=== PATIENT | female | born 1945 | race Caucasian/White ===

== ENCOUNTER 2019-08-07 20:35 | Emergency (ER) | payer MEDICARE, OTHER, SELFPAY ==
[2019-08-07 20:39] VITALS: BP 151/82; PULSE 82; RESP 20; TEMP 36.9; O2SAT 95; BMI 47.9
--- NOTE | 2019-08-07 20:52 | ED_ITS ---
Entered by Alejandrina Blackman, acting as scribe for HPI - Extremity Problem General: Chief complaint: Extremity Injury, Lower Stated complaint: left leg wound/pain Time Seen by Provider: 08/07/19 20:54 Source: patient Mode of arrival: ambulatory Limitations: no limitations History of Present Illness: HPI Narrative: 73 yo Female presents to ED with complaint of left leg wound and pain. Pt states that she dropped a pair of scissors and got a puncture wound on her left leg. Pt states that it started getting a little bit red yesterday and today she is having a lot of pain and tenderness. Pt states that she is already on Augmentin for bronchitis. Pt states that she was previously on doxycycline for her bronchitis but it didn't clear the bronchitis up. MD Complaint: extremity pain Associated symptoms: Deny fever(s) Review of Systems Const: Denies: fever or chills Musc: Reports: extremity pain and redness Skin/Breast: Reports: redness and skin tenderness PFSH ED PFSH: Statuses (acute, chronic, etc) shown below reflect problem list status as previously entered and may not be historically accurate Social History Smoking and tobacco status: never smoked Physical Exam Const: COMMON NORMALS: no apparent distress, average body habitus, oriented x3, no limitations, healthy appearing, alert and well nourished HENMT: COMMON NORMALS: normocephalic HEAD & SCALP: normocephalic Eye: COMMON NORMALS: PERRL, EOMs intact bilaterally and conjunctivae normal CONJUNCTIVA: Yes conjunctivae normal PUPIL: Yes PERRL Neck/C-Spine: COMMON NORMALS: full ROM, no lymphadenopathy, supple, no meningeal signs, no JVD, thyroid normal and no carotid bruits THYROID: thyroid normal Chest: COMMONS NORMALS: inspection of chest normal and palpation of chest normal Resp: COMMON NORMALS: normal respiratory effort, no retractions, no use of accessory muscles, clear to auscultation bilaterally and percussion normal AUSCULTATION: clear to auscultation bilaterally PERCUSSION: percussion normal Cardio: COMMON NORMALS: no JVD GI: COMMON NORMALS: normal to inspection, nondistended, normoactive bowel sounds, soft to palpation, non-tender, no hepatosplenomegaly, no masses and no bruits PALPATION: Yes soft and Yes no hepatosplenomegaly : COMMON NORMALS: Yes no CVA tenderness BLADDER/KIDNEY EXAM: Yes no CVA tenderness Back/Pelvis: COMMON NORMALS: no CVA tenderness Extremity: COMMON NORMALS: full ROM, no clubbing, cyanosis or edema and no calf tenderness; negative for normal to inspection (Confluent erythema over dorsum of foot, distal leg) and negative for no pedal edema Neuro: COMMON NORMALS: oriented x3 SENSORIUM/ORIENTATION: Yes alert MENINGEAL SIGNS: Yes no meningeal signs Skin: COMMON NORMALS: no rashes or lesions noted, no wounds, skin turgor normal, no jaundice, no petechiae and no mottling GENERAL SKIN EXAM: no rashes or lesions noted and turgor normal Course ED course: She has a known break in the skin and subsequent erythema surrounding. Patient's presentation very consistent with Cellulitis. She is responded well to Keflex in the past. It is unclear exactly why Augmentin would be helping her but nonetheless I think a change in antibiotics is warranted based on her history and physical examination. We discussed the importance of close follow-up and reviewed return precautions. Vital Signs: Vital signs: Vital Signs Temperature 98.5 F 08/07/19 20:39 Pulse Rate 104 H 08/07/19 21:03 Respiratory Rate 17 08/07/19 21:03 Blood Pressure 173/78 08/07/19 21:03 Pulse Oximetry 94 08/07/19 21:03 Discharge Plan Discharge Patient Disposition: Home, Self-Care Clinical Impression: Cellulitis Qualifiers: Site of cellulitis: extremity Site of cellulitis of extremity: lower extremity Laterality: left Qualified Code(s): L03.116 - Cellulitis of left lower limb Condition: Stable Referrals: Liborio Iyer DO [Primary Care Provider] - Coding Level of Care Code ED Site Safety Manager for Chg Fwd Exam Problem Focused The documentation recorded by the Hiral salmeron Carmen, accurately reflects the service I personally performed and the decisions made by , Jhonny Washington DO
[2019-08-07 20:55] VITALS: PULSE 109
[2019-08-07 21:03] VITALS: BP 173/78; PULSE 104; RESP 17; O2SAT 94
[2019-08-07] MEDS: cephALEXin 500 mg Capsule PO (21:24)
[2019-08-07 21:41] VITALS: BP 142/63; PULSE 94; RESP 14; TEMP 36.8; O2SAT 93
== END 2019-08-07 21:42 | disposition home or self-care (01) ==
LOC: ER 23:11
PROVIDERS: Emergency Provider Family Medicine; Family Provider Internal Medicine; PCP Internal Medicine
DX: L03.116 Cellulitis of left lower limb (principal)
CPT/HCPCS: 99281

== ENCOUNTER 2019-09-30 07:48 | Outpatient (CLI) | payer MEDICARE, OTHER, SELFPAY ==
[2019-09-30 08:47] LABS: Basophils % 0.3 %; Eosinophils # 0.5 10^3/uL (0.0-0.8); Eosinophils % 5.2 %; Hematocrit 35.3 % (37.0-47.0); Hemoglobin 10.8 g/dL (11.5-15.3); Lymphocytes # 0.9 10^3/uL (0.8-4.8); Lymphocytes % 10.2 %; Mean Corpuscular HGB Conc 30.6 g/dL (30.0-36.0); Mean Corpuscular Hemoglobin 34.5 pg (28.0-34.0); Mean Corpuscular Volume 112.8 fL (81-99); Mean Platelet Volume 9.9 fL (7.4-10.4); Monocytes # 0.9 10^3/uL (0.2-0.9); Monocytes % 10.7 %; Neutrophils # 6.4 10^3/uL (1.8-7.7); Neutrophils % 73.1 %; Nucleated Red Blood Cells % 0 %; Platelet Count 287 10^3/cmm (130-400); Red Blood Count 3.13 10^6/uL (4.1-5.3); Red Cell Distribution Width 14.1 % (12.1-15.1); White Blood Count 8.7 10^3/uL (4.0-10.0)
[2019-09-30 09:21] LABS: Alanine Aminotransferase 10 U/L (0-33); Albumin Level 4.3 g/dL (3.5-5.2); Alkaline Phosphatase 125 IU/L (35-105); Anion Gap 18.7 (5-19); Aspartate Amino Transferase 14 U/L (0-32); Blood Urea Nitrogen 48 mg/dL (8-23); Calcium 9.8 mg/dL (8.5-10.5); Carbon Dioxide 23 mmol/L (22-29); Chloride 105 mmol/L (98-107); Globulin 1.9 g/dL (1.3-4.6); Glucose 96 mg/dL (65-115); Immunoglobulin IGA 119 mg/dL (70-400); Immunoglobulin IGG 529 mg/dL (700-1600); Immunoglobulin IGM 25 mg/dL (40-230); Lactate Dehydrogenase 201 U/L (135-214); Potassium 4.7 mmol/L (3.5-5.1); Sodium 142 mmol/L (136-145); Total Bilirubin 0.2 mg/dL (0.15-1.2); Total Protein 6.2 g/dL (6.6-8.7)
[2019-09-30 09:27] LABS: Ferritin 97 ng/mL (15-150); Iron 37 ug/dL (37-145); Percent Saturation 14.1 % (20-50); Thyroid Stimulating Hormone 0.22 uIU/mL (0.27-4.20); Total Iron Binding Capacity 262 mcg/dl; Unsaturated Iron Binding 225 ug/dL (112-347); Vitamin B12 1316 pg/mL (232-1245)
[2019-09-30 09:36] LABS: Erythrocyte Sedimentation Rate 40 mm/hr (0-15)
[2019-10-01 09:17] LABS: PROTEIN, TOTAL 6.1 g/dL (6.1-8.1)
[2019-10-01 12:52] LABS: ABNORMAL PROTEIN BAND 1 0.1 g/dL (NONE DETECTED); ALBUMIN 3.6 g/dL (3.8-4.8); ALPHA 1 GLOBULIN 0.4 g/dL (0.2-0.3); ALPHA 2 GLOBULIN 0.9 g/dL (0.5-0.9); BETA 1 GLOBULIN 0.4 g/dL (0.4-0.6); BETA 2 GLOBULIN 0.3 g/dL (0.2-0.5); GAMMA GLOBULIN 0.5 g/dL (0.8-1.7)
[2019-10-01 15:30] LABS: KAPPA LIGHT CHAIN, FREE, SERUM 18.1 mg/L (3.3-19.4); KAPPA/LAMBDA LIGHT CHAINS FREE 0.02 (0.26-1.65); LAMBDA LIGHT CHAIN, FREE, SERU 979.5 mg/L (5.7-26.3)
== END 2019-09-30 07:49 | disposition home or self-care (01) ==
LOC: ONCMED 07:58
PROVIDERS: Family Provider Internal Medicine; PCP Internal Medicine; Visit Provider Internal Medicine Medical Oncology
DX: D64.9 Anemia, unspecified (principal); D47.2 Monoclonal gammopathy; E03.9 Hypothyroidism, unspecified
CPT/HCPCS: 36415; 80053; 82607; 82728; 82784; 83540; 83550; 83615; 83883; 84155; 84165; 84443; 85025; 85651

== ENCOUNTER 2019-10-07 08:56 | Outpatient (CLI) | payer MEDICARE, OTHER, SELFPAY ==
--- NOTE | 2019-10-07 12:20 | ONC FU_ITS ---
Dr. Hackett Patient Follow-Up Note Patient: Maryjo Lynn Unit #: [id number]: 1945 Dicatated By: Liborio Hackett M.D.Date of Visit:Oct 07, 2019 Onc Med Follow-up/Prog Note Chief Complaint: Monoclonal gammopathy/anemia. History of Present Illness: This is a 74 year-old woman with monoclonal gammopathy of undetermined significance. She also has been mildly anemic. 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 She was found to be mildly anemic and she had a moderately elevated sedimentation rate. A protein electrophoresis was normal, but her free light chain assay did show elevated lambda light chain at 502.3 mg/dL with normal kappa light chain at 11.57 mg/dL and low kappa/lambda ratio at 0.02. A 24-hour urine study showed a total protein excretion of 405 mg, but with no monoclonal protein. Bone marrow aspiration/biopsy in May 2010 showed mildly increased cellularity with plasma cells slightly elevated at 12%. Iron stores were noted to be absent. The chromosome analysis was normal and the FISH panel for myeloma was negative. She subsequently underwent evaluation at [facility]. 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 She did not appear to be symptomatic with it, and she was monitored with observation/expectant management. In January 2014 she had presented to the emergency room with hemoptysis. CT pulmonary angiogram at that time showed no evidence of pulmonary embolism. There was a 5 cm area of consolidation in the right upper lobe which was a new finding compared to August 2013. There was a small area of cavitation within the focal density consistent with pneumonia with abscess formation versus cavitary neoplasm. She was seen by Dr. Cox. Bronchoscopy showed mucosal edema in the right upper lobe, but there was no endobronchial lesion. Cultures from the bronchial washings were negative. She did receive empiric antibiotic coverage for 6 weeks. She was scheduled for CT directed needle biopsy in February, but the CT at that time showed near complete resolution of the mass and biopsy was not attempted. Her medical history is otherwise significant for cardiomyopathy with congestive heart failure. She did have an abdominal wall biopsy in October of 2010 which showed no amyloid deposition, and I believe an additional biopsy was done at [facility] to rule out amyloid. Her other medical illnesses include hypertension, hypercholesterolemia, GERD, and asthma. 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 She underwent left shoulder replacement in January 2015. During follow-up she also has had a mild anemia with her hemoglobin levels ranging from 10-12 g. Her red cell indices have been normal. Her serum iron studies had shown low transferrin saturation with serum ferritin levels in the low-normal range, consistent with iron deficiency. She had been on long-termoral iron supplementation. She was then given parenteral iron replacement with Injectafer, limited to a single infusion of 750 mg in August 2016. She tolerated it well. Her follow-up blood counts, though, remained stable. A CT scan of the right knee on 03/15/2017 showed advanced degenerative arthritis of the right knee with medial and lateral compartment narrowing. There were multiple well-circumscribed lesions or prominent in the medial joint compartment extending to the articular surface with cortical erosion some places. These involve the femoral condyle and tibial plateau. The findings were felt to be consistent with myelomatous disease. Additional smaller lytic lesions were noted in the lateral joint compartment and intercondylar eminence. Multiple lytic lesions were noted to involve the proximal fibular head with cortex erosion. She had further evaluation with PET/CT on 03/14/2017. It also felt to be probably a negative exam. 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 She had follow-up with Dr. Arboleda at [facility] in June 2017. He agreed with the PET/CT report that it was unlikely that the findings in the right knee were due to myeloma. He recommended continued observation for the monoclonal gammopathy. She then underwent right total knee arthroplasty in December 2017 and left total knee arthroplasty in June 2018. She is seen for a scheduled visit. She has been feeling pretty good. She does have limited activity, but she is still working. ECOG score is 1. Her appetite has been good. She has had significant weight gain. At least some of that has been recent and is suspected to to be fluid related, as she has been more short of breath. She has been taking her diuretic on an as needed basis. She has not had fever. She reports having hot flashes and sweating all the time. She has a little bit of cough, which she attributes to a tickle in her throat. She does not complain of chest pain. She has just occasional nausea. She has acid reflux symptoms pretty frequently despite taking Protonix. She manages it adequately with Tums as needed. She has no complaints with bladder function. She has pain in her hands and in her ankles. She also has pain in her back on the left side. She says her knees have been doing fine. She has occasional sinus headache. She sometimes has dizziness. She gets numbness in her arms from her elbows down to her hands, but that does tend to be positional. Medications: Allopurinol 1 Tablet (of 300 mg) Oral daily, Ambien 1 Tablet (of 5 mg) Oral at bedtime, Calcium 1 Tablet (of 150 mg) Oral b.i.d., Carbidopa-Levodopa ER 1 Tablet (of 25-250 mg) Tablet, controlled release Oral b.i.d., CeleBREX 1 (200 mg) Capsule Oral b.i.d., Demadex 1 (20 mg) Tablet Oral daily PRN, Diovan 1 (160 mg) Tablet Oral b.i.d., Effexor XR 1 (75 mg) Capsule SR 24 HR Oral daily, Flexeril 1 (10 mg) Tablet Oral at bedtime, Hydrocodone-Acetaminophen 1 (7.5-325 mg) Tablet Oral four times a day PRN, Levothroid 1 (150 mcg) Tablet Oral daily, Lipitor 1 (40 mg) Tablet Oral at bedtime, Multivitamin Adult 1 Tablet Oral daily, Pantoprazole Sodium 1 (40 mg) Tablet, enteric coated Oral daily, predniSONE 1 Tablet (of 5 mg) Oral daily, Proventil HFA 2 puff(s) (of 108 (90 Base) mcg/act) Aerosol, solution Inhalation four times a day PRN, Singulair 1 (10 mg) Tablet Oral at bedtime, Xau-njrm-tixii 1 Tablet b.i.d. on Every Other Day, Vitamin D 1 (400 Units) Capsule Oral daily Allergies: Adhesive Tape, beta blockers, betadine, Durmabond, and verapamil . Review of Systems: Constitutional - Her energy is pretty good, but she has limited activity. She is still working. Her appetite is good and her weight is up about 15 pounds since her last visit. No fever or chills. She has hot flashes and sweating. ECOG score is 1, ENMT - She has sinus congestion/drainage with an occasional cough. No mouth sores. No sore throat or difficulty swallowing, Hematologic/Lymphatic - No abnormal bruising or bleeding, Respiratory - She is having more shortness of breath. No pleuritic pain or hemoptysis, Cardiovascular - No angina pain. No palpitations, Gastrointestinal - She gets nauseated at times. No vomiting. She has heartburn even with Protonix. She sometimes also has to take Tums. No diarrhea or constipation. No blood in the stool or black stools, Genitourinary (F) - No dysuria or hematuria. No urinary frequency. No urgency or incontinence, Musculoskeletal - She has pain in her wrists and ankles, and she has pain in the left side of her back, Integumentary - No skin complications, Neurologic - She has occasional sinus headaches. She does get dizzy and light-headed at times. She has some numbness and tingling from her elbows down, depending on her position, Psychiatric - No anxiety or depression. No insomnia. Vital Signs: Performed on Oct 07, 2019 09:04 Height - 62.00 in Weight - 258.4 lbs (HIGH) BSA - 2.13 sq.m BMI - 47.26 (HIGH) Temperature - 96.8 F (LOW) Pulse - 107 /min (HIGH) Respiration - 17 /min O2 Sat - 97 % Pain - 0 Physical Examination: Constitutional - She looks pretty good generally, Eyes - Sclerae nonicteric. Conjunctivae clear, ENMT - No lesions noted in the oral cavity, Hematologic/Lymphatic - No cervical, clavicular, or axillary adenopathy, Respiratory - Lungs sound clear, Cardiovascular - Heart rhythm is regular. There is a II/ systolic murmur. There is no gallop or rub noted, Abdomen - Moderately distended but soft. Liver and spleen are not enlarged. There is no abdominal mass or ascites noted and there is no inguinal adenopathy, Extremities - Slight edema. She has good posterior tibial pulses bilaterally, Neurologic - There are no focal neurologic deficits noted. Lab/Imaging: Test performed on Sep 30, 2019 08:10 Ferritin 97 ng/mL Iron 37 ug/dL LDH (Total) 201 U/L Protein, Total 6.1 g/dL Sodium 142 mmol/L TSH 0.22 uIU/mL Vitamin B12 1316 pg/mL Potassium 4.7 mmol/L Chloride 105 mmol/L CO2 23 mmol/L UIBC 225 ug/dL Anion Gap 18.7 BUN 48 mg/dL Creatinine 1.2 mg/dL Cr Clearance (Est) 73.5600 mL/min Glucose 96 mg/dL Calcium 9.8 mg/dL Albumin 4.3 g/dL Globulin 1.9 g/dL Bilirubin, Total 0.2 mg/dL ALT (SGPT) 10 U/L AST (SGOT) 14 U/L Alkaline Phosphatase 125 IU/L ESR (Sed Rate) 40 mm/hr WBC 8.7 10 3/uL RBC 3.13 10 6/uL HGB 10.8 g/dL HCT 35.3 % MCV 112.8 fL MCH 34.5 pg MCHC 30.6 g/dL RDW 14.1 % Platelet Count 287 10 3/cmm MPV 9.9 fL Neutrophils 6.4 10 3/uL Lymphocytes 0.9 10 3/uL Monocytes 0.9 10 3/uL Eosinophils 0.5 10 3/uL Basophils 0.0 10 3/uL Neutrophil % 73.1 % Lymphocyte % 10.2 % Monocyte % 10.7 % Eosinophil % 5.2 % Basophils % 0.3 % IgG 529 mg/dL Crockett Free Light Chains 18.1 mg/L IgA 119 mg/dL Crockett/Lambda Free Ratio 0.02 IgM 25 mg/dL Impression: 1. The patient has a monoclonal gammopathy characterized by a persistently elevated serum free lambda light chain. This was initially discovered in 2009, and at that time it was suspected that she had an early stage of plasma cell dyscrasia. During follow-up there has been no progression, and thus far she still appears to have a monoclonal gammopathy of undetermined significance. 2. She has peripheral neuropathy which appears to be idiopathic, an association with the monoclonal gammopathy and the peripheral neuropathy cannot be excluded. 3. She also had evidence of cardiomyopathy and congestive heart failure, but there has been no evidence of amyloidosis. 4. During follow-up she has been mildly anemic. Her studies had been suggestive of iron deficiency. She was given parenteral iron replacement with Injectafer in August 2016, but she remains mildly anemic. 5. She has pretty severe underlying degenerative arthritis. She has remained on observation for the monoclonal gammopathy. During follow-up her free lambda light chain has increased just slightly. She has remained mildly anemic. She has low transferrin saturation, but the significance of that finding is uncertain, as she previously had no response to parenteral iron replacement. Her overall clinical status appears stable. She has not had any clinical evidence of myeloma. My main concern would be the possibility of amyloidosis. Plan: She remains on observation/expectant management. I will see her again in one year. In the meantime, I would like to revisit the issue of her previous cardiac studies to determine whether additional evaluation may be indicated. Signed By: Liborio Hackett M.D. <<Signature on File>>
== END 2019-10-07 08:57 | disposition home or self-care (01) ==
LOC: ONCMED 08:57
PROVIDERS: Family Provider Internal Medicine; PCP Internal Medicine; Visit Provider Internal Medicine Medical Oncology
DX: D47.2 Monoclonal gammopathy (principal); G60.9 Hereditary and idiopathic neuropathy, unspecified; I50.9 Heart failure, unspecified; I42.9 Cardiomyopathy, unspecified; D50.9 Iron deficiency anemia, unspecified; M19.90 Unspecified osteoarthritis, unspecified site; I11.0 Hypertensive heart disease with heart failure; E78.00 Pure hypercholesterolemia, unspecified; K21.9 Gastro-esophageal reflux disease without esophagitis; J45.909 Unspecified asthma, uncomplicated; Z79.899 Other long term (current) drug therapy; Z79.891 Long term (current) use of opiate analgesic; Z79.52 Long term (current) use of systemic steroids; Z79.51 Long term (current) use of inhaled steroids; Z96.612 Presence of left artificial shoulder joint
CPT/HCPCS: 99214

== ENCOUNTER 2019-10-24 14:35 | Outpatient (CLI) | payer MEDICARE, OTHER, SELFPAY ==
--- NOTE | 2019-10-24 15:00 | USCV_ITS ---
Maryjo Lynn Age: 74 Gender: F : 1945 Exam Date: 10/24/2019 15:08 Ordering Phys: Chuck Harmon MD ([email or web address]) Technologist: Vinita Arriola [place] [facility] [place]: FO[place]UP BP: 147 / 74 HR: 78 Rhythm: Sinus Technical Quality: Technically difficult study MEASUREMENTS (Male / Female) Normal Values 2D ECHO LV Diastolic Diameter PLAX 5.7 cm 4.2 - 5.9 / 3.9 - 5.3 cm LV Systolic Diameter PLAX 4.7 cm IVS Diastolic Thickness 1.1 cm 0.6 - 1.0 / 0.6 - 0.9 cm IVS Systolic Thickness 1.2 cm LVPW Diastolic Thickness 1.2 cm 0.6 - 1.0 / 0.6 - 0.9 cm LVPW Systolic Thickness 1.8 cm LVOT Diameter 2.0 cm LV Ejection Fraction 2D Teich 36.4 % LA Diameter 3.6 cm LA Width 3.1 cm LA Height 5.5 cm RA Width 3.1 cm RA Height 4.7 cm M-MODE Aortic Annulus Diameter 2.7 cm LA Ao Ratio MM 1.4 MV E Point Septal Separation 2.9 cm DOPPLER AV Peak Velocity 239.0 cm/s LVOT Peak Velocity 58.0 cm/s AV Area Cont Eq vti 0.9 cm squared AV Area Cont Eq pk 0.8 cm squared MV Area PHT 3.2 cm squared Mitral E to A Ratio 0.6 MV E' Velocity 6.0 cm/s Mitral E to MV E' Ratio 11.0 Mitral E to LV E' Lateral Ratio 10.8 Mitral E to LV E' Septal Ratio 11.4 TV Peak E Velocity 72.0 cm/s Right Atrial Pressure 3.0 mmHg PV Peak Velocity 99.0 cm/s FINDINGS Left Ventricle Diffuse hypokinesia left ventricle with ejection fraction of 36% Mildly dilated LV cavity.Grade I/IV diastolic dysfunction (abnormal relaxation filling pattern), normal to mildly elevated filling pressures. Right Ventricle Normal right ventricular size and systolic function. Right Atrium Normal right atrial size. Left Atrium Mildly increased left atrial size. Mitral Valve Trace mitral valve regurgitation. Aortic Valve Thickened aortic valve. Tricuspid Valve No gross abnormalities noted Pulmonic Valve Mild pulmonary valve regurgitation. Pericardium No pericardial effusion. Aorta Normal aortic annulus size. CONCLUSIONS Diffuse hypokinesia left ventricle with ejection fraction of 36% Mildly dilated LV cavity. Grade I/IV diastolic dysfunction (abnormal relaxation filling pattern), normal to mildly elevated filling pressures. Mildly increased left atrial size. Features of the aortic valve sclerosis. Mild pulmonary valve regurgitation. There is no pericardial effusion. There are no intracardiac masses. Technically difficult study because of the poor ultrasonic window. Compared to the previous study from 08/11/2013, there may not be a significant change Dr Rachel Kumar MD FACC (Electronically Signed) Final Date: 24 October 2019 18:34 S
== END 2019-10-24 14:36 | disposition home or self-care (01) ==
LOC: RAD 14:39
PROVIDERS: Family Provider Internal Medicine; PCP Internal Medicine; Visit Provider Internal Medicine Cardiovascular Disease
DX: I42.9 Cardiomyopathy, unspecified (principal); I08.0 Rheumatic disorders of both mitral and aortic valves
CPT/HCPCS: 93306

== ENCOUNTER → 2019-11-03 11:19 | Outpatient (BNVA) | payer MEDICARE, OTHER, SELFPAY | PROVIDERS: Family Provider Internal Medicine; PCP Internal Medicine; Visit Provider Internal Medicine Rheumatology | DX: M15.4 Erosive (osteo)arthritis (principal); D47.2 Monoclonal gammopathy; Z79.899 Other long term (current) drug therapy; E79.0 Hyperuricemia without signs of inflammatory arthritis and tophaceous disease; Z13.820 Encounter for screening for osteoporosis; Z79.52 Long term (current) use of systemic steroids | CPT/HCPCS: 99214 ==

== ENCOUNTER 2019-12-22 14:02 | Outpatient (CLI) | payer MEDICARE, OTHER, SELFPAY ==
--- NOTE | 2019-12-22 14:15 | XR_ITS ---
WS: [id number] Bone mineral density performed on a Passion[employer], today Clinical data: osteoprosis screening Findings: The first 4 lumbar vertebral bodies demonstrated the bone mineral density of 1.167 g/cm2 for a young adult T score of -0.1. Measurement of the left hip reveals a bone mineral density of 0.774 g/cm2 with a young adult T score of -1.9. Measurement of the right hip reveals the bone mineral density of 0.874 g/cm2 for young adult T score of -1.1. XR/XR DEXA axial skeleton* [id number] Impression: 1. Normal bone mineral mineral density of the lumbar spine. 2. Osteopenia of both hips.
== END 2019-12-22 14:03 | disposition home or self-care (01) ==
LOC: RADWPI 14:06
PROVIDERS: Family Provider Internal Medicine; PCP Internal Medicine; Visit Provider Internal Medicine Rheumatology
DX: Z13.820 Encounter for screening for osteoporosis (principal); M85.88 Other specified disorders of bone density and structure, other site
CPT/HCPCS: 77080

== ENCOUNTER → 2020-02-03 11:58 | Outpatient (BNVA) | payer MEDICARE, OTHER, SELFPAY | PROVIDERS: Family Provider Internal Medicine; PCP Internal Medicine; Visit Provider Anesthesiology Pain Medicine | DX: M54.16 Radiculopathy, lumbar region (principal); M48.062 Spinal stenosis, lumbar region with neurogenic claudication; M54.9 Dorsalgia, unspecified; Z79.891 Long term (current) use of opiate analgesic | CPT/HCPCS: 99214; 99215 ==

== ENCOUNTER 2020-02-04 08:17 | Outpatient (CLI) | payer MEDICARE, OTHER, SELFPAY ==
--- NOTE | 2020-02-04 08:45 | MR_ITS ---
WS: [id number] MRI LUMBAR SPINE NONCONTRAST TECHNIQUE: Sagittal T1, T2 and STIR imaging. Axial T1 and T2 imaging. CLINICAL INFORMATION: M54.16 Radiculopathy, lumbar region COMPARISON: MRI 12/2012 FINDINGS: Mild lumbar curve. No acute compression. Slight retrolisthesis L1 on L2. Slight anterolisthesis L4 on L5. Degenerative disc disease at L4-L5 and L5-S1 has progressed since 2012 L1-L2: Slight retrolisthesis L1 on L2 with disc space narrowing and endplate degenerative change. Mil d right and no significant left foraminal narrowing. Moderate facet arthropathy. Small facet effusion s. L2-L3: Mild right and no significant left foraminal narrowing. Moderate facet arthropathy. Spinal can al is patent. L3-L4: No significant disc bulging. Moderate facet arthropathy. Small facet effusions. Spinal canal a nd foramen are patent. L4-L5: Disc osteophyte complex with shallow protrusion. Mild central canal stenosis. Impingement tierra ersing left greater than right L5 nerve roots. Moderate left and mild right foraminal narrowing. Mode rate facet arthropathy. L5-S1: Disc osteophyte complex with endplate ridging. Mild right greater than left foraminal narrowin g. Moderate facet arthropathy small facet effusions. Moderate central canal stenosis in the cervical spine with spondylitic changes. Central canal stenosi s C3-T1. MR/MR lumbar spine wo con* [id number] IMPRESSION: 1. Mild lumbar curve. No acute compression. Degenerative disc disease worse L4 -L5 and L5-S1 has progressed since 2012. 2. Mild central canal stenosis L4-5 due to disc osteophyte complex with imping ement on traversing left L5 nerve root. Moderate left foraminal narrowing conta cts the exiting L4 nerve root. 3. Moderate bilateral L5-S1 foraminal narrowing contacts the exiting L5 nerve roots bilaterally. 4. Slight retrolisthesis L1 on L2 with desiccation. Mild right foraminal narro wing at this level. 5. Moderate facet arthropathy throughout the lumbar spine with small facet eff usions at multiple levels likely inflammatory or degenerative. 6. Multilevel moderate central canal stenosis visualized in the cervical spine on plush cutter imaging. This can be followed up with cervical spine MRI.
== END 2020-02-04 08:18 | disposition home or self-care (01) ==
LOC: RADSHAW 08:20
PROVIDERS: PCP Internal Medicine; Visit Provider Anesthesiology Pain Medicine
DX: M54.16 Radiculopathy, lumbar region (principal); M51.36 Other intervertebral disc degeneration, lumbar region; M48.061 Spinal stenosis, lumbar region without neurogenic claudication; M25.78 Osteophyte, vertebrae; M47.816 Spondylosis without myelopathy or radiculopathy, lumbar region
CPT/HCPCS: 72148

== ENCOUNTER 2020-02-27 08:47 | Outpatient (CLI) | payer MEDICARE, OTHER, SELFPAY ==
--- NOTE | 2020-02-27 09:00 | IR_ITS ---
WS: [id number] CERVICAL AND LUMBAR MYELOGRAM HISTORY: Neck and back pain. COMPARISON: 02/27/2020 FLUOROSCOPY TIME: 2.1 minutes. Procedure, risks and complications were explained to the patient. Risks including bleeding, infection , headaches, allergic reaction and seizures. Consent has been obtained. With the patient in prone position the skin over the lumbar region is cleansed with ChloraPrep and an esthetized with lidocaine. 22-gauge spinal needle is inserted into the thecal sac at the appropriate level determined by fluoroscopy. Omnipaque 300; 15 ml is injected slowly under fluoroscopy with no co mplications. Needle bevel is perpendicular to the longitudinal fibers of the dura. Stylet is reinsert ed prior to removal of the needle. Patient tolerated the procedure well. Patient will proceed to CT f or further evaluation. During an attempted access into the thecal sac there is a small amount of bleeding which was more emily n normally seen. Patient did not experience any symptoms in the bleeding was probably external to the thecal sac. Otherwise the injection was uncomplicated. LEFT convex curvature of the upper lumbar spine. L1 retrolisthesis by 6 mm does not change with flexion or extension. L4 anterolisthesis by 7 mm does not change significantly with flexion or extension. There is also very slight retrolisthesis of L2 by less than 2 mm. Severe disc space narrowing at L4-5 and L5-S1. No fractures. Marked facet joint arth ritis at L4-5 and L5-S1. Extremely limited evaluation of the cervical spine. There is 2 to 3 mm anterolisthesis of C2. C4 ante rolisthesis by 4 mm. With flexion and extension no definite change but very poorly visualized osseous structures. IR/IR myelogram spine cervic/lumb IMPRESSION: 1. Status post cervical and lumbar myelograms. 2. L1 retrolisthesis by 6 mm and L4 anterolisthesis by 7 mm without instabilit y. 3. Severe degenerative disc disease at L4-5 and L5-S1 and facet arthritis. 4. Very limited evaluation of the cervical spine. C2 and C4 anterolisthesis wi thout instability.
[2020-02-27] MEDS: iohexol 300 mg/mL 50 mL Btl INTRATHECA (10:33)
--- NOTE | 2020-02-27 11:00 | CT_ITS ---
WS: [id number] CT CERVICAL MYELOGRAM HISTORY: Neck pain Technique: All CT scans at [facility] use at least one of these dose optimization techniq ues: automated exposure control; mA and/or kV adjustment per patient size (includes targeted exams wh ere dose is matched to clinical indication); or iterative reconstruction. DLP: 783.43 mGy.cm COMPARISON: 10/17/2013 MRI Good opacification of thecal sac with contrast. Quality of examination is limited by motion artifact. Significant motion artifact through the mid to lower cervical region. Artifact is also contributed by the bilateral shoulder prostheses and body hab itus. Severe degenerative disc disease throughout the cervical spine. There is mild, 2 to 3 mm anterolisthe sis of C2, C3 and C4. Severe disc space narrowing from C4-5 to C7-T1. C7 anterolisthesis by about 5 m m is poorly visualized due to motion. There is marked facet joint arthritis and mild RIGHT convex cur vature of the cervical spine. C1-C2: Normal. C2-C3: Osteophytic ridging and a small central disc protrusion. Mild RIGHT foraminal stenosis. C3-C4: Asymmetric facet joint arthritis, LEFT greater than RIGHT. Osteophytic ridging and disc bulgin g. Osteophyte encroaches upon the LEFT lateral thecal sac with moderate bilateral foraminal stenosis. C4-C5: Marked bilateral facet joint arthritis with osteophytic ridging. Moderate bilateral foraminal stenosis and mild central stenosis. C5-C6: Marked osteophytic ridging and annular disc bulging with contact and displacement of the ventr al thecal sac. Severe facet joint arthritis. Moderate central and bilateral foraminal stenosis, LEFT greater than RIGHT. C6-C7: Diffuse annular disc bulging and osteophytic ridging with mild facet arthritis. Slightly great er stenosis involving the RIGHT facet. There is moderate central stenosis due to combination of the a nterolisthesis of C7 in the facet disease. CT/CT cervical spine w con [id number] IMPRESSION: 1. Quality of examination is limited by motion artifact and artifact from the patient's body habitus and shoulder prostheses. 2. There is been mild to moderate progression of degenerative changes througho ut the cervical spine since 2013. 3. Moderate central stenosis and bilateral foraminal stenosis at C6-7. 4. Moderate bilateral foraminal stenosis at C3-4 and C4-5. 5. Severe facet joint arthritis at C5-6 with moderate central and bilateral fo raminal stenosis.
--- NOTE | 2020-02-27 11:30 | CT_ITS ---
WS: [id number] CT MYELOGRAM LUMBAR SPINE HISTORY: Low back pain TECHNIQUE: Contiguous 2.5 mm axial imaging performed from T12 through the mid sacral level. Bone and soft tissue windows reviewed. Sagittal and coronal reformats are submitted and reviewed. DLP: 2153.[address] scans at [facility] use at least one of these dose optimization techniques: automat ed exposure control; mA and/or kV adjustment per patient size (includes targeted exams where dose is matched to clinical indication); or iterative reconstruction. COMPARISON: 07/16/2018, MRI 02/04/2020 Slight increase in the lumbar lordosis. Mild LEFT convex curvature of the lumbar spine. L1 retrolisthesis by 3.2 mm. L4 anterolisthesis by 3 mm. Severe disc desiccation and vacuum disc phen omenon at L4-5 and L5-S1. Severe disc space narrowing at L1-2. L1-L2: Retrolisthesis of L1 with mild encroachment upon the thecal sac. Only mild bilateral foraminal stenosis and RIGHT subarticular recess narrowing. Mild facet joint arthritis. L2-L3: Diffuse disc bulging is asymmetric. No central stenosis. No significant foraminal stenosis. L3-L4: Diffuse annular disc bulging with ligamentum flavum arthritis and facet arthritis. Shallow RIG HT paracentral disc protrusion. Mild facet arthropathy. No significant stenosis. L4-L5: Moderate diffuse circumferential disc bulging with marked ligamentum flavum hypertrophy and fa cet arthritis. Moderate central, subarticular recess and bilateral foraminal stenosis. LEFT foraminal stenosis is more significant. Significant increased soft tissue in the LEFT foramen. Widening measur ing up to 6 mm on the LEFT with marked progression in the widening since 2018. L5-S1: Diffuse annular disc bulging and osteophytic ridging. Ligamentum flavum hypertrophy and facet joint arthritis. Facet joints are widened. Mild central stenosis with moderate RIGHT and mild LEFT fo raminal stenosis. There is soft tissue injury posteriorly at the L3-4 level from the myelogram procedure. There was yari e bleeding during the examination but patient was not complaining or experiencing any symptoms in thi s is probably external to the thecal sac. No intrathecal or epidural hematoma identified. CT/CT lumbar spine w con [id number] IMPRESSION: 1. Severe multilevel degenerative disc and facet arthritis throughout the lumb ar spine. 2. Moderate central, subarticular recess and bilateral foraminal stenosis at L 4-5, greatest on the LEFT. Significant increased soft tissue in the LEFT L4-5 f oramen. Combination of disc and facet disease. 3. Widening of the facet joints at L4-5 and L5-S1. Progressed since 2018. 4. Moderate RIGHT and mild LEFT foraminal stenosis at L5-S1. 5. L1 retrolisthesis and L4 anterolisthesis.
== END 2020-02-27 08:48 | disposition home or self-care (01) ==
LOC: RAD 08:49
PROVIDERS: PCP Internal Medicine; Visit Provider Licensed Practical Nurse
DX: M54.2 Cervicalgia (principal); M54.5 Low back pain; M51.36 Other intervertebral disc degeneration, lumbar region; M13.88 Other specified arthritis, other site; M48.061 Spinal stenosis, lumbar region without neurogenic claudication; M48.02 Spinal stenosis, cervical region
CPT/HCPCS: 62305; 72040; 72120; 72126; 72132

== ENCOUNTER → 2020-03-15 11:21 | Outpatient (BNVA) | payer MEDICARE, OTHER, SELFPAY | PROVIDERS: PCP Internal Medicine; Visit Provider Licensed Practical Nurse | DX: M51.17 Intervertebral disc disorders with radiculopathy, lumbosacral region (principal); M43.17 Spondylolisthesis, lumbosacral region; M48.062 Spinal stenosis, lumbar region with neurogenic claudication; M25.30 Other instability, unspecified joint; M50.020 Cervical disc disorder with myelopathy, mid-cervical region, unspecified level; M48.02 Spinal stenosis, cervical region; G99.2 Myelopathy in diseases classified elsewhere; E66.01 Morbid (severe) obesity due to excess calories; Z68.42 Body mass index [BMI] 45.0-49.9, adult | CPT/HCPCS: 99214 ==

== ENCOUNTER → 2020-03-18 09:04 | Outpatient (BNVA) | payer MEDICARE, OTHER, SELFPAY | PROVIDERS: PCP Internal Medicine; Visit Provider Specialist | DX: S62.307A Unspecified fracture of fifth metacarpal bone, left hand, initial encounter for closed fracture (principal); X58.XXXA Exposure to other specified factors, initial encounter | CPT/HCPCS: 73130 ==

== ENCOUNTER → 2020-03-22 15:10 | Outpatient (BNVA) | payer MEDICARE, OTHER, SELFPAY | PROVIDERS: PCP Internal Medicine; Visit Provider Anesthesiology Pain Medicine | DX: M47.816 Spondylosis without myelopathy or radiculopathy, lumbar region (principal); M48.062 Spinal stenosis, lumbar region with neurogenic claudication; M54.9 Dorsalgia, unspecified | CPT/HCPCS: 64635; 64636; J1030 ==

== ENCOUNTER → 2020-03-30 14:25 | Outpatient (BNVA) | payer MEDICARE, OTHER, SELFPAY | PROVIDERS: PCP Internal Medicine; Visit Provider Internal Medicine Rheumatology | DX: M15.4 Erosive (osteo)arthritis (principal); Z79.899 Other long term (current) drug therapy; E79.0 Hyperuricemia without signs of inflammatory arthritis and tophaceous disease; N18.3 Chronic kidney disease, stage 3 (moderate); M51.17 Intervertebral disc disorders with radiculopathy, lumbosacral region; Z79.52 Long term (current) use of systemic steroids | CPT/HCPCS: 36415; 80076; 82565; 84550; 85025; 85651; 86140; 99213 ==

== ENCOUNTER → 2020-04-19 08:22 | Outpatient (BNVA) | payer MEDICARE, OTHER, SELFPAY | PROVIDERS: PCP Internal Medicine; Visit Provider Specialist | DX: S62.367A Nondisplaced fracture of neck of fifth metacarpal bone, left hand, initial encounter for closed fracture (principal) | CPT/HCPCS: 73130 ==

== ENCOUNTER → 2020-05-25 14:20 | Outpatient (BNVA) | payer MEDICARE, OTHER, SELFPAY | PROVIDERS: PCP Internal Medicine; Visit Provider Podiatrist Foot & Ankle Surgery | DX: Z47.89 Encounter for other orthopedic aftercare (principal); M79.671 Pain in right foot | CPT/HCPCS: 73630 ==

== ENCOUNTER → 2020-06-08 14:55 | Outpatient (BNVA) | payer MEDICARE, OTHER, SELFPAY | PROVIDERS: PCP Internal Medicine; Visit Provider Podiatrist Foot & Ankle Surgery | DX: S92.401A Displaced unspecified fracture of right great toe, initial encounter for closed fracture (principal); S92.501A Displaced unspecified fracture of right lesser toe(s), initial encounter for closed fracture; X58.XXXA Exposure to other specified factors, initial encounter | CPT/HCPCS: 73630 ==

== ENCOUNTER → 2020-06-28 08:51 | Outpatient (BNVA) | payer MEDICARE, OTHER, SELFPAY | PROVIDERS: PCP Internal Medicine; Visit Provider Podiatrist Foot & Ankle Surgery | DX: S99.192G Other physeal fracture of left metatarsal, subsequent encounter for fracture with delayed healing (principal); S92.414D Nondisplaced fracture of proximal phalanx of right great toe, subsequent encounter for fracture with routine healing; S92.501D Displaced unspecified fracture of right lesser toe(s), subsequent encounter for fracture with routine healing; W19.XXXD Unspecified fall, subsequent encounter | CPT/HCPCS: 73630 ==

== ENCOUNTER → 2020-07-14 08:47 | Outpatient (BNVA) | payer MEDICARE, OTHER, SELFPAY | PROVIDERS: PCP Internal Medicine; Visit Provider Internal Medicine Rheumatology | DX: M15.4 Erosive (osteo)arthritis (principal); E79.0 Hyperuricemia without signs of inflammatory arthritis and tophaceous disease; M48.062 Spinal stenosis, lumbar region with neurogenic claudication; M72.2 Plantar fascial fibromatosis; Z79.899 Other long term (current) drug therapy; Z79.52 Long term (current) use of systemic steroids | CPT/HCPCS: 99214 ==

== ENCOUNTER → 2020-07-19 08:59 | Outpatient (BNVA) | payer MEDICARE, OTHER, SELFPAY | PROVIDERS: PCP Internal Medicine; Visit Provider Internal Medicine Rheumatology | DX: M15.4 Erosive (osteo)arthritis (principal); Z79.899 Other long term (current) drug therapy | CPT/HCPCS: 36415; 80076; 84550; 85025 ==

== ENCOUNTER → 2020-07-26 14:20 | Outpatient (BNVA) | payer MEDICARE, OTHER, SELFPAY | PROVIDERS: PCP Internal Medicine; Visit Provider Podiatrist Foot & Ankle Surgery | DX: S99.199A Other physeal fracture of unspecified metatarsal, initial encounter for closed fracture (principal); M79.671 Pain in right foot; X58.XXXA Exposure to other specified factors, initial encounter | CPT/HCPCS: 73630 ==

== ENCOUNTER → 2020-08-30 11:28 | Outpatient (BNVA) | payer MEDICARE, OTHER, SELFPAY | PROVIDERS: PCP Internal Medicine; Visit Provider Podiatrist Foot & Ankle Surgery | DX: S92.352A Displaced fracture of fifth metatarsal bone, left foot, initial encounter for closed fracture (principal); X58.XXXA Exposure to other specified factors, initial encounter | CPT/HCPCS: 73630 ==

== ENCOUNTER 2020-10-04 08:57 | Outpatient (CLI) | payer MEDICARE, OTHER, SELFPAY ==
[2020-10-04 09:40] LABS: Basophils % 0.4 %; Eosinophils # 0.4 10^3/uL (0.0-0.8); Hematocrit 34.4 % (37.0-47.0); Hemoglobin 10.7 g/dL (11.5-15.3); Lymphocytes # 1.3 10^3/uL (0.8-4.8); Lymphocytes % 18.2 %; Mean Corpuscular HGB Conc 31.1 g/dL (30.0-36.0); Mean Corpuscular Hemoglobin 34.4 pg (28.0-34.0); Mean Corpuscular Volume 110.6 fL (81-99); Mean Platelet Volume 9.5 fL (7.4-10.4); Monocytes # 0.7 10^3/uL (0.2-0.9); Monocytes % 8.9 %; Neutrophils # 4.88 10^3/uL (1.8-7.7); Neutrophils % 67.1 %; Nucleated Red Blood Cells % 0 %; Platelet Count 305 10^3/cmm (130-400); Red Blood Count 3.11 10^6/uL (4.1-5.3); Red Cell Distribution Width 14.8 % (12.1-15.1); White Blood Count 7.3 10^3/uL (4.0-10.0)
[2020-10-04 11:41] LABS: Erythrocyte Sedimentation Rate 8 mm/hr (0-15)
[2020-10-04 14:16] LABS: Free T4 Free Thyroxine 0.91 ng/dL (0.82-1.77)
[2020-10-04 15:20] LABS: Alanine Aminotransferase 14 U/L (0-33); Albumin Level 4.3 g/dL (3.5-5.2); Alkaline Phosphatase 81 IU/L (35-105); Anion Gap 19.5 (5-19); Aspartate Amino Transferase 21 U/L (0-32); Blood Urea Nitrogen 46 mg/dL (8-23); Calcium 9.3 mg/dL (8.5-10.5); Carbon Dioxide 26 mmol/L (22-29); Chloride 103 mmol/L (98-107); Globulin 2.4 g/dL (1.3-4.6); Glucose 95 mg/dL (65-115); Immunoglobulin IGA 114 mg/dL (70-400); Immunoglobulin IGG 495 mg/dL (700-1600); Immunoglobulin IGM 32 mg/dL (40-230); Osmolality Calculated 310 mOsm/kg (285-295); Potassium 4.5 mmol/L (3.5-5.1); Sodium 144 mmol/L (136-145); Thyroid Stimulating Hormone 7.13 uIU/mL (0.27-4.20); Total Bilirubin 0.2 mg/dL (0.15-1.2); Total Protein 6.7 g/dL (6.6-8.7)
[2020-10-04 16:41] LABS: Ferritin 90 ng/mL (15-150); Iron 67 ug/dL (37-145); Percent Saturation 20.4 % (20-50); Total Iron Binding Capacity 327 mcg/dl; Unsaturated Iron Binding 260 ug/dL (112-347)
[2020-10-05 06:17] LABS: PROTEIN, TOTAL 6.3 g/dL (6.1-8.1)
[2020-10-05 14:07] LABS: KAPPA LIGHT CHAIN, FREE, SERUM 24.5 mg/L (3.3-19.4); KAPPA/LAMBDA LIGHT CHAINS FREE 0.03 (0.26-1.65); LAMBDA LIGHT CHAIN, FREE, SERU 740.6 mg/L (5.7-26.3)
[2020-10-05 16:11] LABS: ABNORMAL PROTEIN BAND 1 0.1 g/dL (NONE DETECTED); ALBUMIN 3.9 g/dL (3.8-4.8); ALPHA 1 GLOBULIN 0.3 g/dL (0.2-0.3); ALPHA 2 GLOBULIN 0.9 g/dL (0.5-0.9); BETA 1 GLOBULIN 0.4 g/dL (0.4-0.6); BETA 2 GLOBULIN 0.3 g/dL (0.2-0.5); GAMMA GLOBULIN 0.5 g/dL (0.8-1.7)
== END 2020-10-04 08:58 | disposition home or self-care (01) ==
PROVIDERS: PCP Internal Medicine; Visit Provider Internal Medicine Medical Oncology
DX: D47.2 Monoclonal gammopathy (principal); D50.9 Iron deficiency anemia, unspecified; E03.9 Hypothyroidism, unspecified
CPT/HCPCS: 80053; 82728; 82784; 83540; 83550; 83883; 84155; 84165; 84439; 84443; 85025; 85651

== ENCOUNTER 2020-10-12 06:06 | Outpatient (CLI) | payer MEDICARE, OTHER, SELFPAY ==
--- NOTE | 2020-10-12 19:35 | ONC FU_ITS ---
Dr. Hackett Patient Follow-Up Note Patient: Maryjo Lynn Unit #: [id number]: 1945 Dicatated By: Liborio Hackett M.D.Date of Visit:Oct 12, 2020 Onc Med Follow-up/Prog Note Chief Complaint: Monoclonal gammopathy/anemia. History of Present Illness: This is a 75 year-old woman with monoclonal gammopathy of undetermined significance. She also has been mildly anemic. 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 She was found to be mildly anemic and she had a moderately elevated sedimentation rate. A protein electrophoresis was normal, but her free light chain assay did show elevated lambda light chain at 502.3 mg/dL with normal kappa light chain at 11.57 mg/dL and low kappa/lambda ratio at 0.02. A 24-hour urine study showed a total protein excretion of 405 mg, but with no monoclonal protein. Bone marrow aspiration/biopsy in May 2010 showed mildly increased cellularity with plasma cells slightly elevated at 12%. Iron stores were noted to be absent. The chromosome analysis was normal and the FISH panel for myeloma was negative. She subsequently underwent evaluation at [facility]. 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 She did not appear to be symptomatic with it, and she was monitored with observation/expectant management. In January 2014 she had presented to the emergency room with hemoptysis. CT pulmonary angiogram at that time showed no evidence of pulmonary embolism. There was a 5 cm area of consolidation in the right upper lobe which was a new finding compared to August 2013. There was a small area of cavitation within the focal density consistent with pneumonia with abscess formation versus cavitary neoplasm. She was seen by Dr. Cox. Bronchoscopy showed mucosal edema in the right upper lobe, but there was no endobronchial lesion. Cultures from the bronchial washings were negative. She did receive empiric antibiotic coverage for 6 weeks. She was scheduled for CT directed needle biopsy in February, but the CT at that time showed near complete resolution of the mass and biopsy was not attempted. Her medical history is otherwise significant for cardiomyopathy with congestive heart failure. She did have an abdominal wall biopsy in October of 2010 which showed no amyloid deposition, and I believe an additional biopsy was done at [facility] to rule out amyloid. Her other medical illnesses include hypertension, hypercholesterolemia, chronic kidney disease, hypothyroidism, GERD, asthma, obstructive sleep apnea, and peripheral neuropathy. 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 She underwent left shoulder replacement in January 2015. During follow-up she also has had a mild anemia with her hemoglobin levels ranging from 10-12 g. Her red cell indices have been normal. Her serum iron studies had shown low transferrin saturation with serum ferritin levels in the low-normal range, consistent with iron deficiency. She had been on long-termoral iron supplementation. She was then given parenteral iron replacement with Injectafer, limited to a single infusion of 750 mg in August 2016. She tolerated it well. Her follow-up blood counts, though, remained stable. A CT scan of the right knee on 03/15/2017 showed advanced degenerative arthritis of the right knee with medial and lateral compartment narrowing. There were multiple well-circumscribed lesions or prominent in the medial joint compartment extending to the articular surface with cortical erosion some places. These involve the femoral condyle and tibial plateau. The findings were felt to be consistent with myelomatous disease. Additional smaller lytic lesions were noted in the lateral joint compartment and intercondylar eminence. Multiple lytic lesions were noted to involve the proximal fibular head with cortex erosion. She had further evaluation with PET/CT on 03/14/2017. It also felt to be probably a negative exam. 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 She had follow-up with Dr. Arboleda at [facility] in June 2017. He agreed with the PET/CT report that it was unlikely that the findings in the right knee were due to myeloma. He recommended continued observation for the monoclonal gammopathy. She then underwent right total knee arthroplasty in December 2017 and left total knee arthroplasty in June 2018. As of her follow-up visit in September 2019 her serum protein electrophoresis showed stable M protein at 0.1 g/dL. Her free lambda light chain remained elevated at 979.5 mg/L with decreased kappa/lambda ratio at 0.02. She is seen now for a follow-up visit. She continues to have shortness of breath and limited mobility, and she continues to have limited activity. She is still working, though. Her ECOG score is 1. She has good appetite. She has not had fever or night sweats. She does have hot flashes periodically, but they are not as bad. She has some sinus drainage and cough. She does not complain of chest pain. She has occasional nausea, attributable to medication. She has acid reflux and she does tend to have heartburn in the afternoon or evening despite taking pantoprazole in the morning. Bowel function has been okay. She has having some difficulty with bladder control. She continues to have significant back pain when she is standing or walking. It tends to radiate down the left leg. She has sinus headache and she sometimes has dizziness. She has numbness intermittently in her arms and hands. She has insomnia, but she does sleep better with Ambien. Medications: Allopurinol 1 Tablet (of 200 mg) Oral daily, Ambien 1 Tablet (of 5 mg) Oral at bedtime, Calcium 1 Tablet (of 150 mg) Oral b.i.d., Carbidopa-Levodopa ER 1 Tablet (of 25-250 mg) Tablet, controlled release Oral b.i.d., CeleBREX 1 (200 mg) Capsule Oral b.i.d., Demadex 1 (20 mg) Tablet Oral daily PRN, Diovan 1 (160 mg) Tablet Oral b.i.d., Effexor XR 1 (75 mg) Capsule SR 24 HR Oral daily, Flexeril 1 (10 mg) Tablet Oral at bedtime, Hydrocodone-Acetaminophen 1 (7.5-325 mg) Tablet Oral four times a day PRN, Levothroid 1 (150 mcg) Tablet Oral daily, Lipitor 1 (40 mg) Tablet Oral at bedtime, Multivitamin Adult 1 Tablet Oral daily, Pantoprazole Sodium 1 (40 mg) Tablet, enteric coated Oral daily, predniSONE 1 Tablet (of 5 mg) Oral daily, Proventil HFA 2 puff(s) (of 108 (90 Base) mcg/act) Aerosol, solution Inhalation four times a day PRN, Singulair 1 (10 mg) Tablet Oral at bedtime, Vkg-tbed-xfmpa 1 Tablet b.i.d. on Every Other Day, Vitamin D 1 (400 Units) Capsule Oral daily Allergies: Adhesive Tape, beta blockers, betadine, Durmabond, and verapamil . Vital Signs: Performed on Oct 12, 2020 09:07 Height - 62.00 in Weight - 255.8 lbs (LOW) BSA - 2.12 sq.m BMI - 46.79 (HIGH) Temperature - 96.9 F (LOW) Pulse - 96 /min Respiration - 18 /min BP - 151/72 mm(hg) (HIGH) O2 Sat - 99 % Pain - 4 Fatigue - 4 Physical Examination: Constitutional - She has limited mobility, but she otherwise looks pretty good, Eyes - Sclerae nonicteric. Conjunctivae clear, ENMT - No lesions noted in the oral cavity, Hematologic/Lymphatic - No cervical, clavicular, or axillary adenopathy, Respiratory - Lungs sound clear, Cardiovascular - Heart rhythm is regular. There is a II/ systolic murmur. There is no gallop or rub noted, Abdomen - Moderately distended but soft. Liver and spleen are not enlarged. There is no abdominal mass or ascites noted and there is no inguinal adenopathy, Extremities - Slight edema. She has good posterior tibial pulses bilaterally, Neurologic - There are no focal neurologic deficits noted. Lab/Imaging: Test performed on Oct 04, 2020 09:18 Ferritin 90 ng/mL Iron 67 mcg/dL Sodium 144 mmol/L T4, Free 0.91 ng/dL TSH 7.13 uIU/mL Iron Binding Capacity (TIBC) 327 mcg/dl Potassium 4.5 mmol/L % Iron Saturation 20.4 % Chloride 103 mmol/L CO2 26 mmol/L UIBC 260 mcg/dL Anion Gap 19.5 BUN 46 mg/dL Creatinine 1.6 mg/dL Cr Clearance (Est) 57.9400 mL/min Glucose 95 mg/dL Osmolality - Calculated 310 mOsm/kg Calcium 9.3 mg/dL Protein, Total 6.7 g/dL Albumin 4.3 g/dL Globulin 2.4 g/dL Bilirubin, Total 0.2 mg/dL ALT (SGPT) 14 U/L AST (SGOT) 21 U/L Alkaline Phosphatase 81 IU/L ESR (Sed Rate) 8 mm/hr WBC 7.3 10 3/uL RBC 3.11 10 6/uL HGB 10.7 g/dL HCT 34.4 % MCV 110.6 fL MCH 34.4 pg MCHC 31.1 g/dL RDW 14.8 % Platelet Count 305 10 3/cmm MPV 9.5 fL Neutrophils 4.88 10 3/uL Lymphocytes 1.3 10 3/uL Monocytes 0.7 10 3/uL Eosinophils 0.4 10 3/uL Basophils 0.0 10 3/uL Neutrophil % 67.1 % Lymphocyte % 18.2 % Monocyte % 8.9 % Eosinophil % 5.0 % Basophils % 0.4 % NRBC % 0 % IgG 495 mg/dL [place] Free Light Chains 24.5 mg/L Lambda Free Light Chains 740.6 mg/L IgA 114 mg/dL [place]/Lambda Free Ratio 0.03 IgM 32 mg/dL Problem List: 1. Monoclonal gammopathy of undetermined significance. 2. Hypertension. 3. Hyperlipidemia. 4. Chronic kidney disease. 5. Cardiomyopathy and congestive heart failure, but without evidence of amyloidosis. 6. Miild anemia. 7. Hypothyroidism. 8. GERD. 9. Asthma. 10. Obstructive sleep apnea. 11. Degenerative arthritis/degenerative disease of the spine. 12. Hereditary and idiopathic peripheral neuropathy. Problems Addressed with this Encounter and Plan: 1. The patient has a monoclonal gammopathy characterized by a persistently elevated serum free lambda light chain. This was initially discovered in 2009, and at that time it was suspected that she had an early stage of plasma cell dyscrasia. During follow-up there has been some fluctuation in the level of her free lambda light chain. The current level is down compared to a year ago. Overall there has been no evidence of progression, and thus far by clinical assessment she appears to have a monoclonal gammopathy of undetermined significance. She remains on observation/expectant management. I will see her again in one year. 2. She has mild anemia. Her previous studies were suggestive of iron deficiency. She was given parenteral iron replacement with Injectafer in August 2016, but with no significant improvement in the anemia. During follow-up she continues to have mild anemia, but hemoglobin/hematocrit levels have remained stable and her other blood counts remain normal. As such, it will be followed expectantly. 3. GERD. She has persistent symptoms despite taking pantoprazole 40 mg daily. I will have her try increasing the pantoprazole to twice daily. Signed By: Liborio Hackett M.D. <<Signature on File>>
== END 2020-10-12 06:07 | disposition home or self-care (01) ==
LOC: ONCMED 06:09
PROVIDERS: PCP Internal Medicine; Visit Provider Internal Medicine Medical Oncology
DX: D47.2 Monoclonal gammopathy (principal); D64.9 Anemia, unspecified; K21.9 Gastro-esophageal reflux disease without esophagitis; Z79.899 Other long term (current) drug therapy
CPT/HCPCS: 99214

== ENCOUNTER → 2020-11-29 13:15 | Outpatient (BNVA) | payer MEDICARE, OTHER, SELFPAY | PROVIDERS: PCP Internal Medicine; Visit Provider Internal Medicine Rheumatology | DX: M15.4 Erosive (osteo)arthritis (principal); E79.0 Hyperuricemia without signs of inflammatory arthritis and tophaceous disease; M25.552 Pain in left hip; D47.2 Monoclonal gammopathy; Z79.899 Other long term (current) drug therapy; N18.30 Chronic kidney disease, stage 3 unspecified; Z98.890 Other specified postprocedural states | CPT/HCPCS: 99214 ==

== ENCOUNTER 2020-12-20 10:06 | Outpatient (CLI) | payer MEDICARE, OTHER, SELFPAY ==
--- NOTE | 2020-12-20 10:15 | XR_ITS ---
WS: [id number] LEFT HIP HISTORY: M25.559 - Pain in unspecified hip COMPARISON: 01/15/2009 Right hip: No acute fracture or dislocation. Mild narrowing of the hip joint. Small amount of sclerosis along the superior acetabulum. No lateral displacement or subluxation. No soft tissue abnormalities. No significant osteophytic ridging. XR/XR hip LT 2-3V wo/w pel* [id number] IMPRESSION: 1. No hip fracture. 2. Very mild narrowing of the LEFT hip joint. Similar to 2008 examination.
== END 2020-12-20 10:07 | disposition home or self-care (01) ==
PROVIDERS: PCP Internal Medicine; Visit Provider Internal Medicine Rheumatology
DX: M25.552 Pain in left hip (principal)
CPT/HCPCS: 73502

== ENCOUNTER 2020-12-20 10:52 | Outpatient (CLI) | payer MEDICARE, OTHER, SELFPAY ==
--- NOTE | 2020-12-20 10:58 | MM_ITS ---
WS: [id number] BILATERAL DIGITAL SCREENING MAMMOGRAPHY WITH CAD CLINICAL INFORMATION: SCREENING HISTORY: Screening mammogram. No current complaints. COMPARISON: August 26, 2018 TECHNIQUE: Bilateral CC and MLO views. FINDINGS: The breasts are composed of heterogeneous fibroglandular density tissue, which can limit the detectio n of small underlying mass lesions. No suspicious mass, asymmetry, calcifications, or architectural d istortion. No evidence of malignancy. Punctate and lucent centered calcifications. MM/[place] [id number] IMPRESSION: BI-RADS: 2-Benign FOLLOW UP: 1 Year Follow-up Recommend return to annual screening mammography.
== END 2020-12-20 10:53 | disposition home or self-care (01) ==
LOC: RADSHAW 10:56
PROVIDERS: PCP Internal Medicine; Visit Provider Internal Medicine
DX: Z12.31 Encounter for screening mammogram for malignant neoplasm of breast (principal)
CPT/HCPCS: 77067

== ENCOUNTER → 2021-03-07 10:32 | Outpatient (BNVA) | payer MEDICARE, OTHER, SELFPAY | PROVIDERS: PCP Internal Medicine; Visit Provider Anesthesiology Pain Medicine | DX: G89.29 Other chronic pain (principal); M48.062 Spinal stenosis, lumbar region with neurogenic claudication | CPT/HCPCS: 62323; J1040; J3490 ==

== ENCOUNTER → 2021-03-21 10:33 | Outpatient (BNVA) | payer MEDICARE, OTHER, SELFPAY | PROVIDERS: PCP Internal Medicine; Visit Provider Internal Medicine Rheumatology | DX: M15.4 Erosive (osteo)arthritis (principal); E79.0 Hyperuricemia without signs of inflammatory arthritis and tophaceous disease; D47.2 Monoclonal gammopathy; Z79.899 Other long term (current) drug therapy; N18.30 Chronic kidney disease, stage 3 unspecified; M72.2 Plantar fascial fibromatosis | CPT/HCPCS: 36415; 80076; 82565; 85025; 86140; 99214 ==

== ENCOUNTER → 2021-03-24 11:22 | Outpatient (BNVA) | payer MEDICARE, OTHER, SELFPAY | PROVIDERS: PCP Internal Medicine; Visit Provider Anesthesiology Pain Medicine | DX: M48.02 Spinal stenosis, cervical region (principal); M48.062 Spinal stenosis, lumbar region with neurogenic claudication; M51.17 Intervertebral disc disorders with radiculopathy, lumbosacral region; G99.2 Myelopathy in diseases classified elsewhere | CPT/HCPCS: 99214 ==

== ENCOUNTER → 2021-04-12 14:59 | Outpatient (BNVA) | payer MEDICARE, OTHER, SELFPAY | PROVIDERS: PCP Internal Medicine; Referring Provider Anesthesiology Pain Medicine; Visit Provider Orthopaedic Surgery | DX: M48.062 Spinal stenosis, lumbar region with neurogenic claudication (principal); M47.816 Spondylosis without myelopathy or radiculopathy, lumbar region; M81.0 Age-related osteoporosis without current pathological fracture | CPT/HCPCS: 72110 ==

== ENCOUNTER → 2021-05-09 09:56 | Outpatient (BNVA) | payer MEDICARE, OTHER, SELFPAY | PROVIDERS: PCP Internal Medicine; Visit Provider Orthopaedic Surgery | DX: M48.062 Spinal stenosis, lumbar region with neurogenic claudication (principal); Z20.822 Contact with and (suspected) exposure to COVID-19 | CPT/HCPCS: 87635 ==

== ENCOUNTER 2021-05-13 15:19 | Observation (INO) | payer MEDICARE, OTHER, SELFPAY ==
[2021-05-11 08:17] VITALS: BMI 49.1
--- NOTE | 2021-05-11 08:34 | ECG_ITS ---
[facility] Test Date: 2021-05-11 Pat Name: Maryjo Lynn Department: Room: Gender: Female Crib Clerk: : 1945 Requested By: Sunny Varghese Order Number: [id number] Tyler MD: Rachel Kumar M.D. Measurements Intervals [place] Rate: 71 P: 71 MI: 194 QRS: -3 QRSD: 121 T: 78 QT: 403 QTc: 440 Interpretive Statements SINUS RHYTHM POSSIBLE ANTERIOR MYOCARDIAL INFARCTION , OF INDETERMINATE AGE [30 ms Q WAVE IN V3/V4, OR R < 0.2 mV IN V4] No previous ECG available for comparison Electronically Signed On 05-11-2021 23:06:34 CDT by Rachel Kumar M.D. [id number]
[2021-05-11 09:11] LABS: Basophils # 0.1 10^3/uL (0.0-0.1); Basophils % 0.8 %; Eosinophils # 0.3 10^3/uL (0.0-0.8); Eosinophils % 4.4 %; Hematocrit 33.2 % (37.0-47.0); Hemoglobin 10.2 g/dL (11.5-15.3); Lymphocytes # 0.8 10^3/uL (0.8-4.8); Lymphocytes % 11.1 %; Mean Corpuscular HGB Conc 30.7 g/dL (30.0-36.0); Mean Corpuscular Hemoglobin 34.1 pg (28.0-34.0); Mean Platelet Volume 9.7 fL (7.4-10.4); Monocytes # 0.8 10^3/uL (0.2-0.9); Monocytes % 10.6 %; Neutrophils # 5.31 10^3/uL (1.8-7.7); Nucleated Red Blood Cells % 0 %; Platelet Count 255 10^3/cmm (130-400); Red Blood Count 2.99 10^6/uL (4.1-5.3); Red Cell Distribution Width 14.2 % (12.1-15.1); White Blood Count 7.3 10^3/uL (4.0-10.0)
--- NOTE | 2021-05-11 09:13 | ANES.PREANE2 ---
Pre-Anesthetic Assessment Pre-Anesthetic Assessment: Height/Weight: Height 1.55 m Weight 117.934 kg Proposed Procedure: Operation Date: 05/13/21 10:35 Proposed Procedures p Posterior Lumbar Interbody Fusion PLIF L4/5 L5/S1 Arthrodesis 60550 EACH addistional segment 51997 cages [id number] instrumentation 29140 navigation 48066 M43.16(Not Applicable) - Roque Sweet DO Was Beta Areli taken within 24 hours: N/A Was Clonidine taken within 24 hours: N/A Social: Social History: No alcohol and No tobacco Exam: Pre-Anes Outpt Exam: alert, oriented x 3, clear to auscultation bilaterally and regular rate & rhythm Airway: Submandibular: WNL Cervical ROM: WNL MP: 2 Dentition: False Pulmonary: Pulmonary: Asthma and Sleep apnea CV/HEM: CV/HEM: Anemia, CAD, CHF (EF 35%) and HTN : : Chronic renal Insufficiency GI: GI: GERD Metabolic: Metabolic: Hyperlipidemia, Morbid obesity and Thyroid Musc/skel: Musc/skel: Lower Back Pain and OA/DJD Neuropsych: Neuropsych: Neuropathy Anesthetic Plan: ASA status: 3 Anesthesia: General Risk of > 500 ml blood loss (7ml/kg in children): No PFSH Anesthesia PFSH: Medical History (Updated 04/12/21 @ 15:29 by Roque Sweet DO) Cervical disc disorder with myelopathy of mid-cervical region CKD (chronic kidney disease) CKD (chronic kidney disease) stage 3, GFR 30-59 ml/min Degenerative lumbar spinal stenosis Dyslipidemia Erosive osteoarthritis Erosive osteoarthritis of both hands Essential hypertension Gout, arthritis High risk medication use Hyperuricemia Intervertebral disc disorder with radiculopathy of lumbosacral region Joint instability MGUS (monoclonal gammopathy of unknown significance) Morbid obesity with BMI of 45.0-49.9, adult Nonischemic cardiomyopathy Obesity Sleep apnea Spondylolisthesis of lumbosacral region Stenosis of cervical spine with myelopathy Surgical History History of arthroplasty of left shoulder History of knee joint replacement Left 06/2018 right 12/2017 History of surgical removal of ganglion cyst right wrist Hx of bilateral oophorectomy with Dr. Watts at [facility] [place] 1982 and left side 2010 right side done when had hysterectomy at [place] Hx of foot surgery Right x2-sub talur fusoin and arthrodesis Hx of hysterectomy Hx of tonsillectomy Status post reverse arthroplasty of right shoulder Family History Son Sarcoidosis Mother Cancer Sister Rheumatoid arthritis Grandmother Diabetes Father Cancer Myocardial infarction Social History Smoking and tobacco status: never smoked Second hand smoke exposure: No Alcohol intake: current Alcohol intake frequency: holidays/special occasions only Household members: spouse Marital status: Current occupational status: employed Current occupation: [employer] [place] History of recent travel: No Data Anesthesia CBC & Chem 7: 05/11/21 08:49 05/11/21 08:49 Other Labs: Laboratory Results - last 48 hr 05/11/21 08:49 WBC 7.3 RBC 2.99 L Hgb 10.2 L Hct 33.2 L MCV 111.0 H MCH 34.1 H MCHC 30.7 RDW 14.2 Plt Count 255 MPV 9.7 Neut % (Auto) 73.0 Lymph % (Auto) 11.1 Daniels % (Auto) 10.6 Eos % (Auto) 4.4 Baso % (Auto) 0.8 Neut # (Auto) 5.31 Lymph # (Auto) 0.8 Daniels # (Auto) 0.8 Eos # (Auto) 0.3 Baso # (Auto) 0.1 Nucleated RBC % (auto) 0 Nucleated RBCs # 0.0 Cardiac Studies: No Data to Display
[2021-05-11 09:21] LABS: Blood Urea Nitrogen 37 mg/dL (8-23); Calcium 10.4 mg/dL (8.5-10.5); Carbon Dioxide 33 mmol/L (22-29); Chloride 101 mmol/L (98-107); Glucose 99 mg/dL (65-115); Osmolality Calculated 305 mOsm/kg (285-295); Sodium 143 mmol/L (136-145)
[2021-05-13] VITALS (22 sets, daily range): BP systolic 95–151; BP diastolic 53–87; PULSE 66–80; RESP 15–24; TEMP 36.3–37.7; O2SAT 94–100; BMI 49.1
--- NOTE | 2021-05-13 | SCC_ITS ---
Procedure Done: 1. L4/5 Interbody fusion with posterolateral fusion 2. L5/S1 interbody fusion with posterolateral fusion 3. Instrumentation L4-S1 4. Cage at L4/5 5. Cage at L5/S1 6. Laminectomy L4 7. laminectomy at L5 8. use of autograft from same incision 9. allograft 10. Bone marrow aspirate from right iliac crest 11. use of computer navigation stereotactic of spine 15 seconds of fluoroscopic guidance, for a cumulative dose of 77.4 mGy, was provided to Dr. Sweet by the radiology department. C-arm images of the LEFT spine were saved for the patient's permanent record. [facility]
--- NOTE | 2021-05-13 | XR_ITS ---
WS: [id number] XR lumbar spine 1V [id number] REASON FOR EXAM: plif FINDINGS: Localization of the L5-S1 interspace followed by pedicle screw placement at S1, L5, and L4. Interbody fusion devices at L5-S1 and L4-L5. The surgical appliances appear in proper position and alignment. XR/XR lumbar spine 1V [id number] IMPRESSION: Pedicle screws and interbody fusion device placement as above.
[2021-05-13] MEDS: sodium chloride 0.9% 1,000 ML 30 ML IV ×2 (10:32→16:10)
--- NOTE | 2021-05-13 10:38 | P.ANESUD_ITS ---
Pre-Anesthetic Update Pre-Anesthetic Assessment: Date of Surgery/Procedure: 05/13/21 Preop Carin gnosis: Lumbar radiculopathy with DDD Disease Proposed Procedure: Operation Date: 05/13/21 10:25 Proposed Procedures p Posterior Lumbar Interbody Fusion PLIF L4/5 L5/S1 Arthrodesis 23718 EACH addistional segment 58596 cages 16321 64286 instrumentation 64158 navigation 41529 M43.16(Not Applicable) - Roque Sweet, DO Any changes to Pre-Anesthetic Assessment?: No Last Intake: Intake Last Liquid Date 05/12/21 Last Liquid Time 18:30 Last Solid Date 05/12/21 Last Solid Time 18:30 Vitals: Temperature 97.4 F L 05/13/21 09:40 Temperature Source Temporal Artery S can 05/13/21 09:40 Pulse Rate 71 05/13/21 09:40 Pulse Rhythm 05/13/21 09:40 Pulse Strength 3+ Normal 05/13/21 09:40 Respiratory Rate 18 05/13/21 09:40 Blood Pressure 150/67 05/13/21 09:40 Blood Pressure Joselin n 94 05/13/21 09:40 Pulse Oximetry 95 05/13/21 09:40 Oxygen Delivery Me thod 05/13/21 09:40 Exam: Pre-Anes Outpt Exam: alert, oriented x 3, clear to auscultation bilaterally and regular rate & rhythm Other Pertinent Information: Other Pertinent Information: radha TREJO Cardiac Studies: No Data to Display
--- NOTE | 2021-05-13 11:07 | P.HP_ITS ---
Providers/Chief Complaint Primary Care Provider: Liborio Iyer DO Chief Complaint: plif History of Present Illness Maryjo Lynn is a 75 year old female lumbar back pain. Patient states she had previously seen Dr. Reyes nearly 10 years ago and has been a patient of Dr. Hay in pain management ever since. Injections with pain management are no longer working for lumbar back pain. Patient rates pain at 9 out of 10 in clinic today. Onset: chronic Duration: years Characteristics: dull, sharp Severity: 9 Location: lower back Radiating symptoms: down the back of the left leg Aggravating factors: standing, walking, bending, twisting Alleviating factors: reclining position, sleeping on side Neuro deficits: left leg weakness Prior tx: Physical therapy, pain managment injections Goals: surgical options Review of Systems Narrative: General ROS: negative for weight changes, fever ENT ROS: negative for nasal congestion, drainage or bleeding, sore throat, dysphagia or ear pain Eyes: PERRL Hematological and Lymphatic ROS: negative for swollen glands or abnormal bleeding Endocrine ROS: negative for polyuria/polydpsia or new changes in weight Respiratory ROS: negative for cough, shortness of breath, or wheezing Cardiovascular ROS: negative for chest pain or dyspnea on exertion Gastrointestinal ROS: negative for reflux, abdominal pain, change in bowel habits, or black or bloody stools Musculoskeletal ROS: negative for back pain, neck pain, or joint pain or swelling except for current problem Neurological ROS: negative for TIA or stoke symptoms Skin: no rashes Medications/Allergies Home Medications Medication Instructions Recorded Confirmed Last Taken Type albuterol sulfate 90 mcg/actuation 2 puff INHALATION QID PRN 09/09/19 05/11/21 Unknown History aerosol inhaler calcium carbonate 500 mg calcium 500 mg PO BID 09/09/19 05/11/21 Unknown History (1,250 mg) capsule carbidopa ER 50 mg-levodopa 200 mg 1 tab PO BID tab 09/09/19 05/13/21 05/12/21 History tablet,extended release cholecalciferol (vitamin D3) 25 1,000 unit PO DAILY 09/09/19 05/13/21 05/12/21 History mcg (1,000 unit) tablet cyclobenzaprine 10 mg tablet 10 mg PO BEDTIME 09/09/19 05/13/21 05/12/21 History montelukast 10 mg tablet 10 mg PO BEDTIME 02/11/2305/13/21 05/12/21 History venlafaxine 75 mg capsule,extended 75 mg PO DAILY 09/09/19 05/13/21 05/12/21 History release 24 hr zolpidem 5 mg tablet 5 mg PO BEDTIME tab 09/09/19 05/13/21 05/12/21 History chlorpheniramine maleate 4 mg 4 mg PO .at bedtime PRN tab 03/18/20 05/13/21 1 History tablet levothyroxine 125 mcg tablet 137 mcg PO DAILY tab 07/26/20 05/13/21 05/13/21 History valsartan 160 mg tablet 160 mg PO BID #180 tab 09/06/20 05/13/21 05/12/21 Rx gabapentin 300 mg capsule 300 mg PO BEDTIME 11/29/20 05/13/21 05/12/21 History atorvastatin 40 mg tablet 40 mg PO DAILY #90 tab 11/30/20 05/13/21 05/12/21 Rx torsemide 20 mg tablet 20 mg PO BID tab 12/14/20 05/13/21 05/12/21 History iron 10 mg PO BID 03/04/21 05/11/21 Unknown History pantoprazole 40 mg tablet,delayed 40 mg PO BID #90 tab 03/04/21 05/13/21 05/13/21 Rx release allopurinol 100 mg tablet 200 mg PO DAILY #180 tab 03/21/21 05/13/21 05/12/21 Rx diclofenac sodium 1 % topical gel 2 g TOPICAL QID #200 g 03/21/21 05/11/21 Unknown Rx hydroxychloroquine 200 mg tablet 200 mg PO BID #180 tab 03/21/21 05/13/21 05/12/21 Rx potassium chloride 20 mEq 20 meq PO DAILY #90 tab 04/19/21 05/13/21 05/12/21 Rx tablet,extended release [id number] Bone growth stimulator #1 ea 05/06/21 Unknown Rx cetirizine [Zyrtec] 10 mg PO DAILY PRN 05/11/21 05/13/21 05/12/21 History Allergies Allergy/AdvReac Type Severity Reaction Status Date / Time adhesive tape Allergy Intermediate rash, Verified 04/12/21 14:59 itch, DERMABOND DANNY Inhibitors Allergy ADR-Cough Verified 04/12/21 14:59 povidone-iodine Allergy ALGY-Bliste Verified 04/12/21 14:59 [From Betadine] r propranolol [From Inderal LA] Allergy ADR-Depress Verified 04/12/21 14:59 ion soap [From Betadine] Allergy ALGY-Bliste Verified 04/12/21 14:59 r verapamil Allergy ADR-Headach Verified 04/12/21 14:59 e dermabond Allergy ALGY-Bliste Uncoded 05/11/21 08:07 r PFSH Acute PFSH: Medical History (Updated 04/12/21 @ 15:29 by Roque Sweet, ) Cervical disc disorder with myelopathy of mid-cervical region CKD (chronic kidney disease) CKD (chronic kidney disease) stage 3, GFR 30-59 ml/min Degenerative lumbar spinal stenosis Dyslipidemia Erosive osteoarthritis Erosive osteoarthritis of both hands Essential hypertension Gout, arthritis High risk medication use Hyperuricemia Intervertebral disc disorder with radiculopathy of lumbosacral region Joint instability MGUS (monoclonal gammopathy of unknown significance) Morbid obesity with BMI of 45.0-49.9, adult Nonischemic cardiomyopathy Obesity Sleep apnea Spondylolisthesis of lumbosacral region Stenosis of cervical spine with myelopathy Surgical History History of arthroplasty of left shoulder History of knee joint replacement Left 06/2018 right 12/2017 History of surgical removal of ganglion cyst right wrist Hx of bilateral oophorectomy with Dr. Watts at [facility] [place] in 1982 and left side 2010 right side done when had hysterectomy at [place] Hx of foot surgery Right x2-sub talur fusoin and arthrodesis Hx of hysterectomy Hx of tonsillectomy Status post reverse arthroplasty of right shoulder Family History Son Sarcoidosis Mother Cancer Sister Rheumatoid arthritis Grandmother Diabetes Father Cancer Myocardial infarction Social History Smoking and tobacco status: never smoked Second hand smoke exposure: No Alcohol intake: current Alcohol intake frequency: holidays/special occasions only Household members: spouse Marital status: Current occupational status: employed Current occupation: [employer] [place] History of recent travel: No Vitals/I&O/Wt Last Vital Signs Temp 97.4 F L 05/13/21 09:40 Pulse 71 05/13/21 09:40 Resp 18 05/13/21 09:40 BP 150/67 05/13/21 09:40 Pulse Ox 95 05/13/21 09:40 Physical Exam Narrative: EXAM NARRATIVE: CONSTITUTIONAL: The patient is a normal appearing [] in no apparent distress. GENERAL: Patient in no acute distress. CARDIAC: Regular rate and rhythm. CHEST: Normal inspiratory effort, normal respiratory rate. ABDOMEN: Soft and nontender. SKIN: Clear, warm and intact. NEURO?PSYCH: The patient is alert and oriented to person, place and time. Sensorv /SILT Motor StrengthShoulder abduction C5 5/5Wrist extension C6 5/5Elbow extension C7 5/5Hand Machine Rigger C8 5/5Finger abduction T15/5 Radial/ Ulnar/ Median n intact LowerSensory (SILT)Motor StrengthHin flexion L2/3Ant/inner thigh 5/5Hip adduction L2/3 5/5Knee extension L4 Lat thigh, 5/5Toe dorsiflexion L5 5/5Ankle dorsiflexion L5/ [id number] flexion S1 5/5 DTRBleeps 2+Triceps 2+Brachioradialis 2+Patellar 2+Achilles 2+ MUSCULOSKELETAL: [] UPPEREXTREMITIES: The patient had full active ROM in fingers, wrist, elbow, and shoulder. The patient demonstrated ability to fully flex/extend/abduct/adduct fingers, make ok sign, cross 2nd/3rd digits, extend 1st digit fully.. Radial pulse 2+, CR<2 seconds. LOWER EXTREMITIES: Pt has full, active ROM of toes, ankle, knee, and hip. Dorsalis pedis/posterior tibialis pulses 2+, CR<2 seconds. SPINE: Skin warm, dry, intact. Data : 05/11/21 08:49 05/11/21 08:49 A&P Assessment and plan (1) Spondylolisthesis at L4-L5 level: L4-S1 PLIF Status: Acute Attestations Medical Necessity Statement*: failed conservative tx Coding Level of Care Code Acute Clinical Nursing Director for [facility] Diagnoses Spondylolisthesis at L4-L5 level M43.16
[2021-05-13] MEDS: vancomycin 1,000 MG SDV 1000 MG (12:32)
[2021-05-13] MEDS: heparin, porcine 1,000 unit/mL INJ 10 mL 10000 UNIT IRRIGATION (12:34)
--- NOTE | 2021-05-13 15:10 | P.OP_ITS ---
Operative Report Date of procedure: May 13, 2021 Pre-op Diagnosis: lumbar stenosis with neurogenic cladication; L4/5 spondylolisthesis Post-op diagnosis: same Procedure Done: 1. L4/5 Interbody fusion with posterolateral fusion 2. L5/S1 interbody fusion with posterolateral fusion 3. Instrumentation L4-S1 4. Cage at L4/5 5. Cage at L5/S1 6. Laminectomy L4 7. laminectomy at L5 8. use of autograft from same incision 9. allograft 10. Bone marrow aspirate from right iliac crest 11. use of computer navigation stereotactic of spine Surgeon: Roque Sweet Concrete Truck Driver: Prasanth Dudley Concrete Truck Driver: The engineering assistant, Prasanth Dudley, PAC was needed for his expertise under the microscope. He was important and necessary throughout the procedure to complete in a safe and timely manner. He assisted with patient positioning prepping and draping tissue retraction suctioning of the operative field protection of the dural sac and tissue closure Anesthesia: General Estimated blood loss (mL): 500 Condition: stable Disposition: PACU Procedure: 1. L4/5 Interbody fusion with posterolateral fusion 2. L5/S1 interbody fusion with posterolateral fusion 3. Instrumentation L4-S1 4. Cage at L4/5 5. Cage at L5/S1 6. Laminectomy L4 7. laminectomy at L5 8. use of autograft from same incision 9. allograft 10. Bone marrow aspirate from right iliac crest 11. use of computer navigation stereotactic of spine Patient is brought to the operative suite. After undergoing anesthesia, the patient had neuro monitoring attached. Patient was then placed in the prone position on the Bry table. All areas of impingement were well-padded. Patient was then prepped and draped in the normal sterile fashion. Skin incision was then made over the L4- S1 levels. Subperiosteal dissection was made out to the transverse processes of L4 and L5 and S1. Once the exposure was complete attention was then brought to doing the bone marrow aspiration. The [employer] bone marrow aspirate kit was used to aspirate bone marrow aspirate from the right iliac crest. This was done by using the sharp probe to open up the bone. Aspiration was performed and then the blunt probe was then used to dissect down to through the bone tunnel. An aspirating well drawn back a millimeter approximately 20 cc of bone marrow aspirate was used. Admixed with the allograft and autograft bone that will be used. Next attention was brought to placing the fiducial into the right iliac crest. This allowed the computer to Jfe to the patient. The C arm imaging was done this information was also linked to the patient in order to facilitate using computer navigation stereotactic of the spine. Attention was then brought to placing the pedicle screws. The technique for placing the pedicle screws was to use a drill followed by the gearshift probe attached to the computer navigation. Followed by the ball probe to feel the superior inferior medial lateral guaman of the pedicles. Then placement of the screws using the computer navigation. Was done at each pedicle. Screws were placed at L L4 bilaterally and L5 and S1 bilaterally. Next attention was brought to performing the laminectomy ofL4. This was done using the high-speed bur Kerrisons and curettes. Once the lamina was removed and then attention was brought to performing a partial facetectomy on the contralateral side. This was done again using the high-speed bur curettes and Kerrisons. The ligamentum flavum was taken down bilaterally from L4 to L5. Attention was then brought to the facet on the ipsilateral side. The facet was taken down. The L5 nerve was decompressed as it passed around the L5 pedicle. The laminectomy was done for purposes of decompressing the nerve as well as placement of the cage. The L4 nerve was identified as it traversed through the L4/5 foramen. The thecal sac was identified and retracted. The L4/5 disc base was identified. Using a knife the disc base was opened. And then sequential davin were placed. The first shaver was a 6 and the last shaver was a 9. Using a pituitary and down going curette the endplates were scraped and disc material was removed from the space. Once adequate decompression of the disc base was felt to be had. Osteoamp sponge was packed into the anterior aspect of the disc base. Then a size 9 cage from [employer] was placed after packing osteoamp into the cage. While placing the cage the thecal sac and L5 nerve was protected. C arm was used to ensure that the cages placed in the appropriate position. Next attention was brought to performing the laminectomy ofL5/S1. This was done using the high-speed bur Kerrisons and curettes. Once the lamina was removed and then attention was brought to performing a partial facetectomy on the contralateral side. This was done again using the high-speed bur curettes and Kerrisons. The ligamentum flavum was taken down bilaterally from L5 to S1. Attention was then brought to the facet on the ipsilateral side. The facet was taken down. The S1 nerve was decompressed as it passed around the S1 pedicle. The laminectomy was done for purposes of decompressing the nerve as well as placement of the cage. The L5 nerve was identified as it traversed through the L5/S1 foramen. The thecal sac was identified and retracted. The L5/S1 disc base was identified. Using a knife the disc base was opened. And then sequential davin were placed. The first shaver was a 6 and the last shaver was a 8. Using a pituitary and down going curette the endplates were scraped and disc material was removed from the space. Once adequate decompression of the disc base was felt to be had. Osteoamp sponge was packed into the anterior aspect of the disc base. Then a size 8 cage from [employer] was placed after packing osteoamp into the cage. While placing the cage the thecal sac and S1 nerve was protected. C arm was used to ensure that the cages placed in the appropriate position. Attention was then brought to attaching the rods to the screws placed in the L4 to S1 bilaterally. Caps were torqued into position. Locking the construct in place. Wound was copiously irrigated and then attention was brought to decorticating the facets and transverse processes laterally. Bone that was taken down from the lamina was used along with osteoamp fibers and sponges were packed into the lateral gutters along the facet joints. This was done bilaterally. Wound was then closed in a layered fashion starting with the thoracolumbar fascia. 0-vicryl was used the sub cutaneous tissue was closed with 2-0 vicryl and skin with 4-0 monocryl. Glue was then used to seal the skin and a steril dressing was applied. Patient was then placed in the supine position. The endotracheal tube was removed and patient was transferred to the PACU in stable condition.
--- NOTE | 2021-05-13 15:26 | P.PCN_ITS ---
PACU note PACU note: VSS, Good respiratory effort, report to [facility] Post-Anesthesia Exam: awake
--- NOTE | 2021-05-13 15:26 | PM.PACU ---
PACU note PACU note: VSS, Good respiratory effort, report to [facility] Post-Anesthesia Exam: awake
[2021-05-13] MEDS: fentaNYL 50 mcg/mL INJ 2mL IVP (15:29)
[2021-05-13] MEDS: HYDROmorphone 1 mg/mL INJ 1 mL 0.5 MG IVP (15:35)
--- NOTE | 2021-05-13 15:45 | P.CONIM_ITS ---
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 Sweet today. Medicine was consulted for management of medical comorbidities. Patient seen in the recovery room. She is lying comfortably in bed. Denies any active complaints. Denies nausea vomiting, headache, fevers, difficulty in breathing more than usual, headache, diarrhea prior to admission. States she was vaccinated with Motrin with last dose in August. States she usually takes 2 tablets of torsemide daily with occasional extra tablet when she is feels swelling in her legs though usually she has been taking 2 tablets daily. Denies any changes in her medications. Review of Systems General: Reports: 10 or more systems reviewed and unremarkable except in HPI and below Const: Denies: fever(s), chills, body aches, change in appetite, change in weight, malaise, night sweats, diaphoresis, change in sleep pattern, daytime sleepiness or snoring Eyes: Denies: change in vision, blurry vision, photophobia, eye discomfort or eye discharge ENMT: Denies: throat pain, enlarged tonsils, hoarseness, mouth pain, oral sores, dry mouth, tinnitus, nasal congestion or post nasal drip Card: Denies: chest pain, palpitations, irregular heart rhythm, edema, swelling of feet/ankles, lightheadedness, syncope, pre-syncope, dyspnea on exertion, orthopnea, leg pain with exertion or acrocyanosis Resp: Denies: dyspnea, productive cough, non-productive cough, wheezing, stridor, pain on inspiration, change in phlegm color, hemoptysis or chest congestion GI: Denies: abdominal pain, nausea, vomiting, hematemesis, coffee ground emesis, dysphagia, heartburn, diarrhea, constipation, bloating, GI cramping, change in bowel habits, pain on defecation, hematochezia or melena : Denies: flank pain, dysuria, urinary frequency, urinary urgency, urinary hesitancy, nocturia or hematuria Musc: Denies: neck pain, back pain, extremity pain, joint pain, joint swelli ng, joint redness, joint stiffness or limited range of motion Neuro: Denies: headache(s), numbness in extremities, weakness in extremities, sensory changes, lack of coordination, difficulty walking, frequent falls, dizziness, vertigo, confusion, Slurred speech present, difficulty communicating thoughts or seizure-like activity Psych: Denies: anxiety, depression, mood swings, panic attacks, hopelessness or irritability Endo: Denies: polyuria, polydipsia, tired all the time, cold intolerance, excessive sweating, flushing or heat intolerance Phil/Lymph: Denies: easy bruising or easy bleeding All/Imm: Denies: tongue swelling, facial swelling or acute wheezing Meds/Allergies Home Medications and Allergies Home Medications Medication Instructions Recorded Confirmed Last Taken Type albuterol sulfate 90 mcg/actuation 2 puff INHALATION QID PRN 09/09/19 05/11/21 Unknown History aerosol inhaler calcium carbonate 500 mg calcium 500 mg PO BID 09/09/19 05/11/21 Unknown History (1,250 mg) capsule carbidopa ER 50 mg-levodopa 200 mg 1 tab PO BID tab 09/09/19 05/13/21 05/12/21 History tablet,extended release cholecalciferol (vitamin D3) 25 1,000 unit PO DAILY 09/09/19 05/13/21 05/12/21 History mcg (1,000 unit) tablet cyclobenzaprine 10 mg tablet 10 mg PO BEDTIME 09/09/19 05/13/21 05/12/21 History montelukast 10 mg tablet 10 mg PO BEDTIME 09/09/19 05/13/21 05/12/21 History venlafaxine 75 mg capsule,extended 75 mg PO DAILY 09/09/19 05/13/21 05/12/21 History release 24 hr zolpidem 5 mg tablet 5 mg PO BEDTIME tab 09/09/19 05/13/21 05/12/21 History chlorpheniramine maleate 4 mg 4 mg PO .at bedtime PRN tab 03/18/20 05/13/21 05/12/21 History tablet levothyroxine 125 mcg tablet 137 mcg PO DAILY tab 07/26/20 05/13/21 05/13/21 History valsartan 160 mg tablet 160 mg PO BID #180 tab 09/06/20 05/13/21 05/12/21 Rx gabapentin 300 mg capsule 300 mg PO BEDTIME 11/29/20 05/13/21 05/12/21 History atorvastatin 40 mg tablet 40 mg PO DAILY #90 tab 11/30/20 05/13/21 05/12/21 Rx torsemide 20 mg tablet 20 mg PO BID tab 12/14/20 05/13/21 05/12/21 History iron 10 mg PO BID 03/04/21 05/11/21 Unknown History pantoprazole 40 mg tablet,delayed 40 mg PO BID #90 tab 03/04/21 05/13/21 05/13/21 Rx release allopurinol 100 mg tablet 200 mg PO DAILY #180 tab 03/21/21 05/13/21 05/12/21 Rx diclofenac sodium 1 % topical gel 2 g TOPICAL QID #200 g 03/21/21 05/11/21 Un known Rx hydroxychloroquine 200 mg tablet 200 mg PO BID #180 tab 03/21/21 05/13/21 05/12/21 Rx potassium chloride 20 mEq 20 meq PO DAILY #90 tab 04/19/21 05/13/21 05/12/21 Rx tablet,extended release E0748 Bone growth stimulator #1 ea 05/06/21 Unknown Rx cetirizine [Zyrtec] 10 mg PO DAILY PRN 05/11/21 05/13/21 05/12/21 History Allergies Allergy/AdvReac Type Severity Reaction Status Date / Time adhesive tape Allergy Intermediate rash, Verified 04/12/21 14:59 itch, DERMABOND DANNY Inhibitors Allergy ADR-Cough Verified 04/12/21 14:59 povidone-iodine Allergy ALGY-Bliste Verified 04/12/21 14:59 [From Betadine] r propranolol [From Inderal LA] Allergy ADR-Depress Verified 04/12/21 14:59 ion soap [From Betadine] Allergy ALGY-Bliste Verified 04/12/21 14:59 r verapamil Allergy ADR-Headach Verified 04/12/21 14:59 e dermabond Allergy ALGY-Bliste Uncoded 05/11/21 08:07 r Current Medications Current Medications Generic Name Dose Route Start Last Admin Trade Name Freq PRN Reason Stop Dose Admin Sodium Chloride 1,000 mls @ 30 mls/hr 05/13/21 09:15 05/13/21 10:32 Sodium Chloride 0.9% IV 05/14/21 09:14 30 mls/hr .Q24H MAL Administration PFSH Acute PFSH: Medical History (Updated 05/13/21 @ 15:48 by Can Concepcion MD) Cervical disc disorder with myelopathy of mid-cervical region CKD (chronic kidney disease) CKD (chronic kidney disease) stage 3, GFR 30-59 ml/min Degenerative lumbar spinal stenosis Dyslipidemia Erosive osteoarthritis Erosive osteoarthritis of both hands Essential hypertension Gout, arthritis High risk medication use Hyperuricemia Intervertebral disc disorder with radiculopathy of lumbosacral region Joint instability MGUS (monoclonal gammopathy of unknown significance) Morbid obesity with BMI of 45.0-49.9, adult Nonischemic cardiomyopathy Obesity Sleep apnea Spondylolisthesis of lumbosacral region Stenosis of cervical spine with myelopathy Surgical History History of arthroplasty of left shoulder History of knee joint replacement Left 06/2018 right 12/2017 History of surgical removal of ganglion cyst right wrist [place] [facility] [place] side 2010 right side done when had hysterectomy at [place] Hx of foot surgery Right x2-sub talur fusoin and arthrodesis Hx of hysterectomy Hx of tonsillectomy Status post reverse arthroplasty of right shoulder Family History Son Sarcoidosis Mother Cancer Sister Rheumatoid arthritis Grandmother Diabetes Father Cancer Myocardial infarction Social History Smoking and tobacco status: never smoked Second hand smoke exposure: No Alcohol intake: current Alcohol intake frequency: holidays/special occasions only Household members: spouse Marital status: Current occupational status: employed Current occupation: [employer] [place] History of recent travel: No Vitals/I&O/Wt Last Vital Signs Temp 97.4 F L 05/13/21 09:40 Pulse 71 05/13/21 09:40 Resp 18 10/08/21 09:40 BP 150/67 05/13/21 09:40 Pulse Ox 95 05/13/21 09:40 05/13/21 05/13/21 05/13/21 06:59 14:59 22:59 Intake Total 60 / 60 Balance 60 / 60 Physical Exam Narrative: EXAM NARRATIVE: EXAM NARRATIVE: General: No acute distress, AO x3, examined in recovery room, lying comfortably in bed, morbidly obese HEENT: PERRLA, pupils bilaterally equal and reactive Chest: Normal vesicular breath sounds bilaterally, good equal air entry bilaterally, occasional rhonchi CVS: S1-S2 regular, no murmurs, no tachycardia, no gallops, no rubs Abdomen: Soft, nontender, no organomegaly, bowel sounds present, morbidly obese Neuro: No focal deficits, no facial deformity, AO x3, Urinary Catheter Management^: Romeo: Cath Placed During This Visit: yes Urinary Catheter Date of Insertion: 05/13/21 Urinary Catheter Time of Insertion: 12:00 A&P Assessment and plan (1) Encounter for postoperative care: Status: Acute (2) Spondylolisthesis at L4-L5 level: Status: Acute (3) Nonischemic cardiomyopathy: Status: Acute (4) CKD (chronic kidney disease) stage 3, GFR 30-59 ml/min: Status: Acute (5) Essential hypertension: Status: Acute (6) Sleep apnea: Status: Acute Qualifiers: Sleep apnea type: unspecified type Qualified Code(s): G47.30 - Sleep apnea, unspecified Additional A&P Information Postoperative day 0. Anticoagulation none physical therapy, perioperative antibiotics as per primary team. Check CBC, CMP, iron panel, lipid panel, A1c, proBNP Nonischemic cardiomyopathy: No acute exacerbation. Last echocardiogram October 2019 shows an EF of 36% with grade 2 diastolic dysfunction. Follows up with Dr. Bowen. Continue with home dose of statin, torsemide 20 mg twice daily, valsartan. Stop IV fluids. CKD: Baseline creatinine seems to be ranging from 1.3-1.8. Most recent creatinine from May 11 was 1.5. Repeat CMP. Medical reconciliation done for nephrotoxic drugs. Hypertension: Goal blood pressure less than 140/90 mmHg. Sleep apnea: Continue with home CPAP 12. Nebulizations as needed Continue other chronic medications including statin, carbidopa levodopa, gabapentin, levothyroxine, venlafaxine, zolpidem. Full code. Diet advance as per orthopedic team. Anticoagulation as per orthopedic team. Protonix for PUD prophylaxis Consult Attestations Medical Necessity Statement: As per primary team Time Spent in Patient Care: Greater than 35 minutes (>than 50% of time spent in counselling and/or direct pt care on unit) . Coding Level of Care Code Acute Field Agronomist for Chg Fwd Diagnoses Encounter for postoperative care Z48.89 Spondylolisthesis at L4-L5 level M43.16 Nonischemic cardiomyopathy I42.8 CKD (chronic kidney disease) stage 3, GFR 30-59 ml/min N18.3 Essential hypertension I10 Sleep apnea G47.30 Sleep apnea type: unspecified type
--- NOTE | 2021-05-13 16:44 | SUR.PHASEI ---
1550 ART LINE TO LT WRIST DCD IN TACT,PRESSURE HELD X 10 MINS WITH PRESSURE DRESSING PLACED , PT MOVES ALL EXT TO COMMAND STRONGLYU, BARR PATENT OF CLEAR LT YELLOW URINE IN SMALL AMT TO TUBING AND BAG. IV TO RT AC PATENT VSS. PT TAKING ICE CHIPS
[2021-05-13 17:08] LABS: Basophils % 0.2 %; Hematocrit 28.2 % (37.0-47.0); Hemoglobin 8.8 g/dL (11.5-15.3); Lymphocytes # 0.5 10^3/uL (0.8-4.8); Lymphocytes % 3.7 %; Mean Corpuscular HGB Conc 31.2 g/dL (30.0-36.0); Mean Corpuscular Hemoglobin 34.5 pg (28.0-34.0); Mean Corpuscular Volume 110.6 fl (81-99); Mean Platelet Volume 9.9 fL (7.4-10.4); Monocytes # 0.2 10^3/uL (0.2-0.9); Monocytes % 1.4 %; Neutrophils # 11.94 10^3/uL (1.8-7.7); Neutrophils % 94.4 %; Nucleated Red Blood Cells % 0 %; Platelet Count 232 10^3/cmm (130-400); Red Blood Count 2.55 10^6/uL (4.1-5.3); Red Cell Distribution Width 14.3 % (12.1-15.1); White Blood Count 12.7 10^3/uL (4.0-10.0)
[2021-05-13] MEDS: HYDROcodone-acetaminophen 5-325 mg Tablet PO ×2 (17:40→22:27)
[2021-05-13] MEDS: docusate sodium 100 mg Capsule PO (17:45)
[2021-05-13] MEDS: carbidopa-levodopa ER 50-200mg Tablet 1 EACH PO (17:45)
[2021-05-13] MEDS: losartan 50 mg Tablet PO (17:45)
[2021-05-13] MEDS: pantoprazole DR 40 mg Tablet PO (17:45)
[2021-05-13] MEDS: hydroxychloroquine 200 mg Tablet PO (17:45)
[2021-05-13 18:03] LABS: Alanine Aminotransferase 18 U/L (0-33); Albumin Level 3.9 g/dL (3.5-5.2); Alkaline Phosphatase 109 IU/L (35-105); Anion Gap 15.6 (5-19); Aspartate Amino Transferase 24 U/L (0-32); Blood Urea Nitrogen 41 mg/dL (8-23); Calcium 8.7 mg/dL (8.5-10.5); Carbon Dioxide 28 mmol/L (22-29); Chloride 104 mmol/L (98-107); Glucose 128 mg/dL (65-115); Iron 63 ug/dL (37-145); NT Pro B Type Natriuretic Pept 777 pg/mL (0-125); Osmolality Calculated 308 mOsm/kg (285-295); Percent Saturation 22.7 % (20-50); Potassium 4.6 mmol/L (3.5-5.1); Sodium 143 mmol/L (136-145); Total Bilirubin 0.2 mg/dL (0.15-1.2); Total Iron Binding Capacity 277 mcg/dl; Total Protein 5.9 g/dL (6.6-8.7); Unsaturated Iron Binding 214 ug/dL (112-347)
[2021-05-13 18:05] LABS: Thyroid Stimulating Hormone 5.47 uIU/mL (0.27-4.20)
[2021-05-13] MEDS: gabapentin 300 mg Capsule PO (20:54)
[2021-05-13] MEDS: cyclobenzaprine 10 mg Tablet PO (20:54)
[2021-05-13] MEDS: montelukast sodium 10 mg Tablet PO (20:54)
[2021-05-13] MEDS: calcium carbonate 500 mg Chew Tablet PO (20:54)
[2021-05-13] MEDS: zolpidem 5 mg Tablet PO (20:54)
[2021-05-13] MEDS: diclofenac 1% Topical Gel 100 gm 1 APPLIC TOPICAL ×2 (20:55→21:44)
[2021-05-13] MEDS: morphine 4 mg/mL SDV 1 mL 2 MG IVP (21:29)
[2021-05-14] VITALS (9 sets, daily range): BP systolic 100–128; BP diastolic 57–79; PULSE 72–82; RESP 16–20; TEMP 36.6–37.1; O2SAT 92–96
[2021-05-14] MEDS: morphine 4 mg/mL SDV 1 mL 2 MG IVP (01:43)
[2021-05-14 05:48] LABS: Basophils % 0.1 %; Hematocrit 26.8 % (37.0-47.0); Hemoglobin 8.3 g/dL (11.5-15.3); Lymphocytes # 0.7 10^3/uL (0.8-4.8); Lymphocytes % 6.3 %; Mean Corpuscular Hemoglobin 34.4 pg (28.0-34.0); Mean Corpuscular Volume 111.2 fl (81-99); Mean Platelet Volume 10.2 fL (7.4-10.4); Monocytes # 0.8 10^3/uL (0.2-0.9); Monocytes % 7.2 %; Neutrophils # 9.63 10^3/uL (1.8-7.7); Nucleated Red Blood Cells % 0 %; Platelet Count 249 10^3/cmm (130-400); Red Blood Count 2.41 10^6/uL (4.1-5.3); Red Cell Distribution Width 14.4 % (12.1-15.1); White Blood Count 11.2 10^3/uL (4.0-10.0)
[2021-05-14 06:07] LABS: Estmated Average Glucose 100; Hemoglobin A1C 5.1 % (4.0-6.0)
[2021-05-14 06:17] LABS: Chol HDL Ratio 1.94 mg/dL (0.0-4.40); Cholesterol 132 mg/dL (0-200); HDL Cholesterol 68 mg/dL (60-100); LDL Cholesterol Calculated 44 mg/dL (50-129); Triglycerides 102 mg/dL (0-150); VLDL Cholestrol Calculation 20 mg/dL (0-30)
[2021-05-14 06:32] LABS: Alanine Aminotransferase < 5 U/L (0-33); Albumin Level 3.7 g/dL (3.5-5.2); Alkaline Phosphatase 100 IU/L (35-105); Anion Gap 16.7 (5-19); Aspartate Amino Transferase 26 U/L (0-32); Blood Urea Nitrogen 37 mg/dL (8-23); Calcium 8.6 mg/dL (8.5-10.5); Carbon Dioxide 26 mmol/L (22-29); Chloride 102 mmol/L (98-107); Globulin 2.1 g/dL (1.3-4.6); Glucose 114 mg/dL (65-115); Osmolality Calculated 300 mOsm/kg (285-295); Potassium 4.7 mmol/L (3.5-5.1); Sodium 140 mmol/L (136-145); Total Bilirubin 0.2 mg/dL (0.15-1.2); Total Protein 5.8 g/dL (6.6-8.7)
[2021-05-14] MEDS: enoxaparin 40 mg/0.4 mL Syringe SUBCUT (06:37)
[2021-05-14] MEDS: HYDROcodone-acetaminophen 5-325 mg Tablet PO ×2 (06:37→12:06)
[2021-05-14] MEDS: calcium carbonate 500 mg Chew Tablet PO (09:10)
[2021-05-14] MEDS: pantoprazole DR 40 mg Tablet PO (09:10)
[2021-05-14] MEDS: venlafaxine ER (24HR) 75 mg Capsule PO (09:10)
[2021-05-14] MEDS: docusate sodium 100 mg Capsule PO (09:10)
[2021-05-14] MEDS: levothyroxine 137 mcg Tablet PO (09:10)
[2021-05-14] MEDS: allopurinol 100 mg Tablet 200 MG PO (09:11)
[2021-05-14] MEDS: potassium chloride ER 20 mEq Tablet PO (09:11)
[2021-05-14] MEDS: cholecalciferol (vitamin D3) 1,000 unit Tablet 1000 UNIT PO (09:12)
[2021-05-14] MEDS: hydroxychloroquine 200 mg Tablet PO (09:13)
--- NOTE | 2021-05-14 09:26 | P.DS_ITS ---
Discharge Providers Date of Admission: 05/13/21 15:19 Date of Discharge: May 14, 2021 Attending Provider at Admission: Roque Sweet DO Attending Provider at Discharge: Roque Sweet DO Primary Care Provider: Liborio Iyer DO Diagnoses at Discharge Discharge Diagnosis (1) Encounter for postoperative care: Status: Acute (2) Spondylolisthesis at L4-L5 level: Status: Acute (3) Nonischemic cardiomyopathy: Status: Acute (4) CKD (chronic kidney disease) stage 3, GFR 30-59 ml/min: Status: Acute (5) Essential hypertension: Status: Acute (6) Sleep apnea: Status: Acute Qualifiers: Sleep apnea type: unspecified type Qualified Code(s): G47.30 - Sleep apnea, unspecified Reason for Visit Reason for Visit: plif Hospital Course Hospital Course His hospital course was uneventful. This point patient was admitted in the hospital on 05/13/2021 had an L4-5 and L5-S1 posterior lumbar interbody fusion. She will be discharged on 05/14/2021. Physical Exam Narrative: EXAM NARRATIVE: Patient resting comfortably in chair pain no complaints at this time. She was having some right-sided however this is since resolved since she is had a Romeo placed. Urinary Catheter Management^: Romeo: Cath Placed During This Visit: yes Reason for Continuing Indwelling Catheter: Required Immobilization for Trauma or Surgery or Anesthesia Urinary Catheter Date of Insertion: 05/13/21 Urinary Catheter Time of Insertion: 12:00 Discharge Data Data Completed and Pending: Completed Studies During Hospitalization Category Date Time Status XR lumbar spine 1 V [id number] Routine Exams 05/13/21 Completed Pending at discharge Category Date Time Status C-arm Fluoroscopy [id number] Routine Exams 05/13/21 09:03 Taken Labs from last 24 hours 05/14/21 05/14/21 05/14/21 05:03 05:03 05:03 WBC RBC Hgb Hct MCV MCH MCHC RDW Plt Count MPV Neut % (Auto) Lymph % (Auto) [place] % (Auto) Eos % (Auto) Baso % (Auto) Neut # (Auto) Lymph # (Auto) [place] # (Auto) Eos # (Auto) Baso # (Auto) Nucleated RBC % (a uto) Nucleated RBCs # Sodium 140 Potassium 4.7 Chloride 102 Carbon Dioxide 26 Anion Gap 16.7 BUN 37 H Creatinine 1.4 H GFR Calculation Not Reportable Glucose 114 Estimat Average Gl ucose 100 Hemoglobin A1c 5.1 Calculated Osmolal ity 300 H Calcium 8.6 Iron TIBC % Saturation Unsat Iron Binding Total Bilirubin 0.2 AST 26 ALT < 5 Alkaline Phosphata se 100 NT-Pro-B Natriuret Pep Total Protein 5.8 L Albumin 3.7 Globulin 2.1 Triglycerides 102 Cholesterol 132 LDL Cholesterol, C alc 44 L Total VLDL Cholest david 20 HDL Cholesterol 68 Cholesterol/HDL Ra justin 1.94 TSH Blood Type Rho(D) Type Antibody Screen 05/14/21 05/13/21 05/13/21 05:03 16:48 16:48 WBC 11.2 H 12.7 H RBC 2.41 L 2.55 L Hgb 8.3 L 8.8 L Hct 26.8 L 28.2 L MCV 111.2 H 110.6 H MCH 34.4 H 34.5 H MCHC 31.0 31.2 RDW 14.4 14.3 Plt Count 249 232 MPV 10.2 9.9 Neut % (Auto) 86.0 94.4 Lymph % (Auto) 6.3 3.7 [place]land % (Auto) 7.2 1.4 Eos % (Auto) 0.0 0.0 Baso % (Auto) 0.1 0.2 Neut # (Auto) 9.63 H 11.94 H Lymph # (Auto) 0.7 L 0.5 L [place]land # (Auto) 0.8 0.2 Eos # (Auto) 0.0 0.0 Baso # (Auto) 0.0 0.0 Nucleated RBC % (a uto) 0 0 Nucleated RBCs # 0.0 0.0 Sodium Potassium Chloride Carbon Dioxide Anion Gap BUN Creatinine GFR Calculation Glucose Estimat Average Gl ucose Hemoglobin A1c Calculated Osmolal ity Calcium Iron TIBC % Saturation Unsat Iron Binding Total Bilirubin AST ALT Alkaline Phosphata se NT-Pro-B Natriuret Pep Total Protein Albumin Globulin Triglycerides Cholesterol LDL Cholesterol, C alc Total VLDL Cholest david HDL Cholesterol Cholesterol/HDL Ra justin TSH 5.47 H Blood Type Rho(D) Type Antibody Screen 05/13/21 05/13/21 16:48 10:22 WBC RBC Hgb Hct MCV MCH MCHC RDW Plt Count MPV Neut % (Auto) Lymph % (Auto) [place]land % (Auto) Eos % (Auto) Baso % (Auto) Neut # (Auto) Lymph # (Auto) [place] # (Auto) Eos # (Auto) Baso # (Auto) Nucleated RBC % (a uto) Nucleated RBCs # Sodium 143 Potassium 4.6 Chloride 104 Carbon Dioxide 28 Anion Gap 15.6 BUN 41 H Creatinine 1.6 H GFR Calculation Not Reportable Glucose 128 H Estimat Average Gl ucose Hemoglobin A1c Calculated Osmolal ity 308 H Calcium 8.7 Iron 63 TIBC 277 % Saturation 22.7 Unsat Iron Binding 214 Total Bilirubin 0.2 AST 24 ALT 18 Alkaline Phosphata se 109 H NT-Pro-B Natriuret Pep 777 H Total Protein 5.9 L Albumin 3.9 Globulin 2.0 Triglycerides Cholesterol LDL Cholesterol, C alc Total VLDL Cholest david HDL Cholesterol Cholesterol/HDL Ra justin TSH Blood Type A Positive Rho(D) Type Positive Antibody Screen Negative Vitals: Last Vital Signs Temp 98.4 F 05/14/21 07:43 Pulse 72 05/14/21 07:49 Resp 18 05/14/21 07:49 BP 113/57 05/14/21 09:12 Pulse Ox 93 05/14/21 07:49 Discharge Plan Discharge Patient Disposition: Home Condition: Stable Prescriptions: New hydrocodone-acetaminophen 5-325 mg tablet 1 - 2 tab PO .Q4-6H Qty: 40 RF: 0 Continued chlorpheniramine maleate 4 mg tablet 4 mg PO .at bedtime PRN (Reason: Itching) RF: 0 cyclobenzaprine 10 mg tablet 10 mg PO BEDTIME RF: 0 albuterol sulfate [ProAir HFA] 90 mcg/actuation HFA aerosol inhaler 2 puff INHALATION QID PRN (Reason: Wheezing) RF: 0 zolpidem [Ambien] 5 mg tablet 5 mg PO BEDTIME RF: 0 carbidopa-levodopa 50-200 mg tablet extended release 1 tab PO BID RF: 0 venlafaxine [Effexor XR] 75 mg capsule,extended release 24hr 75 mg PO DAILY RF: 0 calcium carbonate 500 mg calcium (1,250 mg) capsule 500 mg PO BID RF: 0 cholecalciferol (vitamin D3) 25 mcg (1,000 unit) tablet 1,000 unit PO DAILY RF: 0 montelukast [Singulair] 10 mg tablet 10 mg PO BEDTIME RF: 0 torsemide 20 mg tablet 20 mg PO BID RF: 0 levothyroxine 125 mcg tablet 137 mcg PO DAILY RF: 0 gabapentin 300 mg capsule 300 mg PO BEDTIME RF: 0 allopurinol 100 mg tablet 200 mg PO DAILY Qty: 180 RF: 1 diclofenac sodium 1 % gel 2 g TOPICAL QID Qty: 200 RF: 2 hydroxychloroquine 200 mg tablet 200 mg PO BID Qty: 180 RF: 1 pantoprazole 40 mg tablet,delayed release (DR/EC) 40 mg PO BID Qty: 90 RF: 1 iron 10 mg tablet 10 mg PO BID RF: 0 valsartan 160 mg tablet 160 mg PO BID Qty: 180 RF: 3 atorvastatin 40 mg tablet 40 mg PO DAILY Qty: 90 RF: 3 potassium chloride 20 mEq tablet extended release 20 meq PO DAILY Qty: 90 RF: 3 (DME) E0748 Bone growth stimulator See Rx Instructions .Route .MEDSUPPLY Qty: 1 RF: 0 cetirizine [Zyrtec] 10 mg Tablet 10 mg PO DAILY PRN (Reason: Allergy Symptoms) RF: 0 Discharge Orders: Discharge Order (Routine); Ordered 05/14/21 Ordered By: Roque Sweet Discharge Diet: Advance as tolerated Discharge Activity: Limit activity as instructed Patient Instructions: Opioid Safety Activity Restrictions/Additional Instructions: Thank you for [facility] for your care! The following is a list of instructions, from your provider, to follow upon your discharge to ensure you have the optimal recovery from your recent injury orsurgery. Follow-up care is a gaxiola part of your treatment and safety. Be sure to make and go to all appointments, and call your doctor if you are having problems. If you do not already have a follow-up appointment made, call Dr. Sweet office in the next 1-3 days to make follow up appointment for this May at [phone]. It is also a good idea to know your test results and keep a list of the medicines you take. Medications will be prescribed for you at your provider's discretion. These medications are to be used as instructed; if they are taken more often that prescribed they will not be refilled early and in most cases will not be refilled at all. > When a refill is needed,you should contact our roffice 2-3 business days before your prescription runs out. Medications will NOT be refilled by forensic economist providers after hours! > Many pain medications contain Tylenol (Acetaminophen). Do not consume more than 4,000 mg of Tylenol per day in total with any combination ofmedications. > Pain medications can cause constipation. Please use an over the counter stool softener as directed, while taking pain medications. Consulty our local pharmacist with questions or recommendations on stool softeners. If constipation persists, contact our office or your primary care provider. > While under our care,you are not to receive pain medications or other controlled substances from any other provider unless our office is notified and approves. Any attempts to do so will result in refusal to prescribe any further pain medications and possible dismissal from our practice. ? Your wound and/or dressing should remain on until we see you in clinic ? Walking is essential for the healing process after surgery. We would like you to slowly advance your walking. This should be done on relatively flat clear ground (inside or out) or can be done on a treadmill. Remember this goal does not have to happen all at once, slowly increase your distance and duration. This can be broken into more more than one walk per day as tolerated. Patients who walk as directed after surgery rarely require Physical Therapy. In the unlikely event this issue arises your provider will direct hospital staff to make the appropriate arrangements. ? No lifting over 5 pounds {a gallon of milk) or bending/twisting until further notice. Each of these activities places an unnecessary amount of stress onto the body and can impede the delicate healing process. > Instead of bending at the waist, keep your back straight and bend at the knees. > Instead of twisting your torso, keep your back straight and turn your entire body with your feet. ? You may sleep in any position which makes you comfortable. Many patients find comfort sleeping in a reclining chair. It is not abnormal to have difficulty sleeping for the first several weeks following your surgery. We recommend trying Benadry! or Tylenol PM as directed to help with your sleeping difficulties. Both medications are over the counter and available withoutprescription. ? NO SMOKING!!! Smoking dramatically increases the probability of developing postoperative wound infections. ? Common complaints after lumbar and/or thoracic spine surgery include, but are not limited to: numbness and/or tingling in the legs, pain around the incision and surrounding tissues, muscle spasms, or stiffness of the middle to low back. Contact our office if these symptoms persist or if an acute change occurs. ? No driving for the first 3-5days, and not while taking narcotics [] until seen at your follow-up appointment and cleared. There are no restrictions for riding on short trips, however if you take a longer trip, arrangements s hould be made to make regular stops to get out of the vehicle and stretch . ? Swelling is an unfortunate event that will take place with any surgery and is the primary source of your postoperative discomfort. While walking and regular approved activities helps control inflammation, there are additional steps you can take to minimizeswelling. > Place ice over the surgical site and surrounding tissue for twenty minutes, followed by applying a low/medium heat (heating pad) for an additional twenty minutes every 1-2 hours as needed for painrelief. > You may use of over the counter anti-inflammatory medications (Ibuprofen, Motrin, Aleve, Advil, etc) as directed on the package label. These types of medicines wm significantly reduce the amount of discomfort you experience after surgery from swelling. It should be noted that if you have and allergy to any of these medications, or a history of ulcers or kidney disease you should consult you primary care provider prior to starting these medications. Discharge Attestations Time Spent in Discharge Care*: less than 30 min Quality Metrics Clinical Quality Measures During this hospital stay, did patient experience: None Coding Level of Care Code Acute [facility] [place] note Diagnoses Encounter for postoperative care Z48.89 Spondylolisthesis at L4-L5 level M43.16 Nonischemic cardiomyopathy I42.8 CKD (chronic kidney disease) stage 3, GFR 30-59 ml/min N18.3 Essential hypertension I10 Sleep apnea G47.30 Sleep apnea type: unspecified type
--- NOTE | 2021-05-14 11:38 | P.PN_ITS ---
Subjective Subjective: Interval history: No acute event overnight. Has remained hemodynamically stable. Labs reviewed. Plan for discharge as per orthopedics team. Continue oral medications as before for congestive heart failure, COPD, nonischemic cardiomyopathy, hypertension. Follow-up with your primary care provider within next 1 week. Vitals/I&O/Wt Last Vital Signs Temp 98.4 F 05/14/21 07:43 Pulse 72 05/14/21 07:49 Resp 18 05/14/21 07:49 BP 113/57 05/14/21 09:12 Pulse Ox 93 05/14/21 07:49 05/13/21 05/14/21 05/14/21 22:59 06:59 14:59 Intake Total 2500 / 2560 300 / 300 Output Total 1045 / 1045 745 / 1790 300 / 300 Balance 1455 / 1515 -745 / 770 0 / 0 Weight last 48 hrs Weight 117.934 kg Physical Exam Narrative: EXAM NARRATIVE: EXAM NARRATIVE: General: No acute distress, AO x3, examined in recovery room, lying comfortably in bed, morbidly obese HEENT: PERRLA, pupils bilaterally equal and reactive Chest: Normal vesicular breath sounds bilaterally, good equal air entry bilaterally, occasional rhonchi CVS: S1-S2 regular, no murmurs, no tachycardia, no gallops, no rubs Abdomen: Soft, nontender, no organomegaly, bowel sounds present, morbidly obese Neuro: No focal deficits, no facial deformity, AO x3, Urinary Catheter Management^: Romeo: Cath Placed During This Visit: yes, but has since been removed by the nurse Reason for Continuing Indwelling Catheter: Decision to DC Catheter Urinary Catheter Date of Insertion: 05/13/21 Urinary Catheter Time of Insertion: 12:00 Date Urinary Catheter Removed: 05/14/21 Time Urinary Catheter Discontinued: 10:55 Data : 05/14/21 05:03 05/14/21 05:03 A&P Assessment and plan (1) Encounter for postoperative care: Status: Acute (2) Spondylolisthesis at L4-L5 level: Status: Acute (3) Nonischemic cardiomyopathy: Status: Acute (4) CKD (chronic kidney disease) stage 3, GFR 30-59 ml/min: Status: Acute (5) Essential hypertension: Status: Acute (6) Sleep apnea: Status: Acute Qualifiers: Sleep apnea type: unspecified type Qualified Code(s): G47.30 - Sleep apnea, unspecified Additional A&P Information Postoperative day 0. Anticoagulation none physical therapy, perioperative antibiotics as per primary team. Check CBC, CMP, iron panel, lipid panel, A1c, proBNP Nonischemic cardiomyopathy: No acute exacerbation. Last echocardiogram October 2019 shows an EF of 36% with grade 2 diastolic dysfunction. Follows up with Dr. Bowen. Continue with home dose of statin, torsemide 20 mg twice daily, valsartan. Stop IV fluids. CKD: Baseline creatinine seems to be ranging from 1.3-1.8. Most recent creatinine from May 11 was 1.5. Repeat CMP. Medical reconciliation done for nephrotoxic drugs. Hypertension: Goal blood pressure less than 140/90 mmHg. Sleep apnea: Continue with home CPAP 12. Nebulizations as needed Continue other chronic medications including statin, carbidopa levodopa, gabapentin, levothyroxine, venlafaxine, zolpidem. Full code. Diet advance as per orthopedic team. Anticoagulation as per orthopedic team. Protonix for PUD prophylaxis Stable to be discharged from medicine point of view. Continue oral medications as before. Follow-up with a primary care provider within next 1 week. Attestations Medical Necessity Statement*: As per primary team. Time Spent in Patient Care: Greater than 35 minutes (>than 50% of time spent in counselling and/or direct pt care on unit) . 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
[2021-05-14] MEDS: diclofenac 1% Topical Gel 100 gm 1 APPLIC TOPICAL (12:07)
[2021-05-14 12:30] LABS: Free T4 Free Thyroxine 1.37 ng/dL (0.82-1.77); T3 Free 1.9 PG/ML (2.0-4.4)
[2021-05-14] MEDS: carbidopa-levodopa ER 50-200mg Tablet 1 EACH PO (13:52)
--- NOTE | 2021-05-14 15:32 | PC.NURSE ---
Discharge Note Patient discharged to home via private vehicle accompanied by her . Discharge instructions reviewed with patient and/or manufacturer's service representative. Mobile pharmacy medications and/or prescriptions provided but pharmacy was already closed. Dr Sweet notified and states he will switch the pharmacy tomorrow 05/15/21 when he comes back to the hospital but a different pain medication was offered that could be called in, but patient declined and states she will get the medication filled tomorrow when Dr Sweet sends it to [facility]. Belongings/home medications returned.
--- NOTE | 2021-05-18 10:46 | PC.SOCIAL ---
discharge follow up call made, spoke with patient. no new medications prescribed at discharge. patient is taking hydrocodone as needed for pain with good pain control. patient went into Dr. Sweet's office yesterday for a dressing change, patient has follow up with dr. sweet 05-19. patient is aware of lifting restriction of 5 lbs and is following. patient denies any questions or concerns.
== END 2021-05-14 15:10 | disposition home or self-care (01) ==
LOC: MEDSURG 15:23
PROVIDERS: Anesthesiology; Student in an Organized Health Care Education/Training Program; Admitting Provider Orthopaedic Surgery; PCP Internal Medicine; Visit Provider Orthopaedic Surgery
PROC: (CPT 22612; principal; 2021-05-13 10:15)
DX: M48.062 Spinal stenosis, lumbar region with neurogenic claudication (principal); M43.16 Spondylolisthesis, lumbar region; I42.8 Other cardiomyopathies; G47.30 Sleep apnea, unspecified; I12.9 Hypertensive chronic kidney disease with stage 1 through stage 4 chronic kidney disease, or unspecified chronic kidney disease; N18.30 Chronic kidney disease, stage 3 unspecified; E78.5 Hyperlipidemia, unspecified; Z82.49 Family history of ischemic heart disease and other diseases of the circulatory system; Z83.3 Family history of diabetes mellitus; M06.9 Rheumatoid arthritis, unspecified; E66.01 Morbid (severe) obesity due to excess calories; Z68.42 Body mass index [BMI] 45.0-49.9, adult; Z79.899 Other long term (current) drug therapy
CPT/HCPCS: 20930; 20936; 22633; 22634 ×2; 22842; 22853; 61783; 63047; 63048; 36415; 51702; 72020; 76000; 80048; 80053; 80061; 83036; 83540; 83550; 83880; 84439; 84443; 84481; 85025; 86850; 86900; 93005; 96372; 97110; 97116; 97162; C1713; C9359; G0378; J0330; J0690; J1100; J1170; J1644; J1650; J2270; J2370; J2405; J2704; J2710; J3010; J3370; J3490; J7030

== ENCOUNTER → 2021-06-28 13:48 | Outpatient (BNVA) | payer MEDICARE, OTHER, SELFPAY | PROVIDERS: PCP Internal Medicine; Visit Provider Orthopaedic Surgery | DX: M51.17 Intervertebral disc disorders with radiculopathy, lumbosacral region (principal); M48.062 Spinal stenosis, lumbar region with neurogenic claudication | CPT/HCPCS: 72100 ==

== ENCOUNTER → 2021-08-09 14:58 | Outpatient (BNVA) | payer MEDICARE, OTHER, SELFPAY | PROVIDERS: PCP Internal Medicine; Visit Provider Orthopaedic Surgery | DX: Z48.89 Encounter for other specified surgical aftercare (principal); M48.062 Spinal stenosis, lumbar region with neurogenic claudication; M51.17 Intervertebral disc disorders with radiculopathy, lumbosacral region | CPT/HCPCS: 72100 ==

== ENCOUNTER → 2021-09-12 09:36 | Outpatient (BNVA) | payer MEDICARE, OTHER, SELFPAY | PROVIDERS: PCP Internal Medicine; Visit Provider Internal Medicine Rheumatology | DX: M15.4 Erosive (osteo)arthritis (principal); Z79.899 Other long term (current) drug therapy; N18.30 Chronic kidney disease, stage 3 unspecified; M70.21 Olecranon bursitis, right elbow; M72.2 Plantar fascial fibromatosis; M48.061 Spinal stenosis, lumbar region without neurogenic claudication; M54.16 Radiculopathy, lumbar region | CPT/HCPCS: 99213; 99214 ==

== ENCOUNTER 2021-10-10 10:11 | Outpatient (CLI) | payer MEDICARE, OTHER, SELFPAY ==
[2021-10-10 10:53] LABS: Basophils % 0.4 %; Eosinophils # 0.2 10^3/uL (0.0-0.8); Hematocrit 31.2 % (37.0-47.0); Hemoglobin 9.8 g/dL (11.5-15.3); Lymphocytes % 14.6 %; Mean Corpuscular HGB Conc 31.4 g/dL (30.0-36.0); Mean Corpuscular Hemoglobin 34.1 pg (28.0-34.0); Mean Corpuscular Volume 108.7 fl (81-99); Mean Platelet Volume 9.5 fL (7.4-10.4); Monocytes # 0.8 10^3/uL (0.2-0.9); Monocytes % 11.4 %; Neutrophils # 4.75 10^3/uL (1.8-7.7); Neutrophils % 70.2 %; Nucleated Red Blood Cells % 0 %; Platelet Count 333 10^3/cmm (130-400); Red Blood Count 2.87 10^6/uL (4.1-5.3); Red Cell Distribution Width 15.1 % (12.1-15.1); White Blood Count 6.8 10^3/uL (4.0-10.0)
[2021-10-10 11:14] LABS: Erythrocyte Sedimentation Rate 35 mm/hr (0-15)
[2021-10-10 11:33] LABS: Alanine Aminotransferase 11 U/L (0-33); Albumin Level 4.5 g/dL (3.5-5.2); Alkaline Phosphatase 112 IU/L (35-105); Anion Gap 17.7 (5-19); Aspartate Amino Transferase 20 U/L (0-32); Blood Urea Nitrogen 39 mg/dL (8-23); Calcium 10.4 mg/dL (8.5-10.5); Carbon Dioxide 26 mmol/L (22-29); Chloride 101 mmol/L (98-107); Ferritin 57 ng/mL (15-150); Globulin 2.6 g/dL (1.3-4.6); Glucose 106 mg/dL (65-115); Iron 68 ug/dL (37-145); Lactate Dehydrogenase 216 U/L (135-214); Osmolality Calculated 300 mOsm/kg (285-295); Percent Saturation 21.3 % (20-50); Potassium 4.7 mmol/L (3.5-5.1); Sodium 140 mmol/L (136-145); Thyroid Stimulating Hormone 0.63 uIU/mL (0.27-4.20); Total Bilirubin 0.2 mg/dL (0.15-1.2); Total Iron Binding Capacity 319 mcg/dl; Total Protein 7.1 g/dL (6.6-8.7); Unsaturated Iron Binding 251 ug/dL (112-347); Vitamin B12 912 pg/mL (232-1245)
[2021-10-10 12:01] LABS: Immunoglobulin IGA 107 mg/dL (70-400); Immunoglobulin IGG 512 mg/dL (700-1600); Immunoglobulin IGM 29 mg/dL (40-230)
[2021-10-11 08:03] LABS: PROTEIN, TOTAL 6.6 g/dL (6.1-8.1)
[2021-10-11 16:43] LABS: ABNORMAL PROTEIN BAND 1 0.1 g/dL (NONE DETECTED); ALBUMIN 3.9 g/dL (3.8-4.8); ALPHA 1 GLOBULIN 0.4 g/dL (0.2-0.3); BETA 1 GLOBULIN 0.4 g/dL (0.4-0.6); BETA 2 GLOBULIN 0.4 g/dL (0.2-0.5); GAMMA GLOBULIN 0.5 g/dL (0.8-1.7)
[2021-10-11 18:17] LABS: KAPPA LIGHT CHAIN, FREE, SERUM 23.4 mg/L (3.3-19.4); KAPPA/LAMBDA LIGHT CHAINS FREE 0.02 (0.26-1.65); LAMBDA LIGHT CHAIN, FREE, SERU 1216.5 mg/L (5.7-26.3)
== END 2021-10-10 10:12 | disposition home or self-care (01) ==
PROVIDERS: PCP Internal Medicine; Visit Provider Internal Medicine Medical Oncology
DX: D64.9 Anemia, unspecified (principal); E03.9 Hypothyroidism, unspecified; D47.2 Monoclonal gammopathy; I10 Essential (primary) hypertension; E78.5 Hyperlipidemia, unspecified; Z79.899 Other long term (current) drug therapy
CPT/HCPCS: 36415; 80053; 82607; 82728; 82784; 83540; 83550; 83615; 83883; 84155; 84165; 84443; 85025; 85651

== ENCOUNTER 2021-10-12 12:59 | Outpatient (CLI) | payer MEDICARE, OTHER, SELFPAY ==
--- NOTE | 2021-10-15 12:18 | ONC FU_ITS ---
Dr. Hackett Patient Follow-Up Note Patient: Maryjo Lynn Unit #: [id number]: 1945 Dicatated By: Liborio Hackett M.D.Date of Visit:Oct 12, 2021 Onc Med Follow-up/Prog Note Chief Complaint: Monoclonal gammopathy/anemia. History of Present Illness: This is a 76 year-old woman with monoclonal gammopathy of undetermined significance. She also has been mildly anemic. 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 She was found to be mildly anemic and she had a moderately elevated sedimentation rate. A protein electrophoresis was normal, but her free light chain assay did show elevated lambda light chain at 502.3 mg/dL with normal kappa light chain at 11.57 mg/dL and low kappa/lambda ratio at 0.02. A 24-hour urine study showed a total protein excretion of 405 mg, but with no monoclonal protein. Bone marrow aspiration/biopsy in May 2010 showed mildly increased cellularity with plasma cells slightly elevated at 12%. Iron stores were noted to be absent. The chromosome analysis was normal and the FISH panel for myeloma was negative. She subsequently underwent evaluation at [facility]. 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 She did not appear to be symptomatic with it, and she was monitored with observation/expectant management. In January 2014 she had presented to the emergency room with hemoptysis. CT pulmonary angiogram at that time showed no evidence of pulmonary embolism. There was a 5 cm area of consolidation in the right upper lobe which was a new finding compared to August 2013. There was a small area of cavitation within the focal density consistent with pneumonia with abscess formation versus cavitary neoplasm. She was seen by Dr. Cox. Bronchoscopy showed mucosal edema in the right upper lobe, but there was no endobronchial lesion. Cultures from the bronchial washings were negative. She did receive empiric antibiotic coverage for 6 weeks. She was scheduled for CT directed needle biopsy in February, but the CT at that time showed near complete resolution of the mass and biopsy was not attempted. Her medical history is otherwise significant for cardiomyopathy with congestive heart failure. She did have an abdominal wall biopsy in October of 2010 which showed no amyloid deposition, and I believe an additional biopsy was done at [facility] to rule out amyloid. Her other medical illnesses include hypertension, hypercholesterolemia, chronic kidney disease, hypothyroidism, GERD, asthma, obstructive sleep apnea, and peripheral neuropathy. 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 She underwent left shoulder replacement in January 2015. During follow-up she also has had a mild anemia with her hemoglobin levels ranging from 10-12 g. Her red cell indices have been normal. Her serum iron studies had shown low transferrin saturation with serum ferritin levels in the low-normal range, consistent with iron deficiency. She had been on long-termoral iron supplementation. She was then given parenteral iron replacement with Injectafer, limited to a single infusion of 750 mg in August 2016. She tolerated it well. However, on her follow-up blood counts there was no significant improvement in the anemia. A CT scan of the right knee on 03/15/2017 showed advanced degenerative arthritis of the right knee with medial and lateral compartment narrowing. There were multiple well-circumscribed lesions or prominent in the medial joint compartment extending to the articular surface with cortical erosion some places. These involve the femoral condyle and tibial plateau. The findings were felt to be consistent with myelomatous disease. Additional smaller lytic lesions were noted in the lateral joint compartment and intercondylar eminence. Multiple lytic lesions were noted to involve the proximal fibular head with cortex erosion. She had further evaluation with PET/CT on 03/14/2017. It also felt to be probably a negative exam. 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 She had follow-up with Dr. Arboleda at [facility] in June 2017. He agreed with the PET/CT report that it was unlikely that the findings in the right knee were due to myeloma. He recommended continued observation for the monoclonal gammopathy. She then underwent right total knee arthroplasty in December 2017 and left total knee arthroplasty in June 2018. As of her follow-up visit in September 2019 her serum protein electrophoresis showed stable M protein at 0.1 g/dL. Her free lambda light chain remained elevated at 979.5 mg/L with decreased kappa/lambda ratio at 0.02. As of October 2020 the free lambda light chain was down slightly at 740.6 mg/L with kappa/lambda ratio stable at 0.03. On 05/13/2021 she underwent laminectomy at L4 and L5 with L4/5 interbody fusion and L5/S1 interbody fusion. The procedure also included bone marrow aspirate from the iliac crest, but there appears to be no pathology report pertaining to that procedure. Postoperatively her hemoglobin dropped to as low as 8.3 g, but that did improve taking oral iron 3 times a day. She is seen for a follow-up visit. She still has some back pain, which is chronic, but the sharp pain that she was having did improve significantly with the surgery. She still has limited activity, she is able to do some light housework. ECOG score is 1. She has good appetite. She has not had fever. She occasionally has sweating. She has had 2 courses of antibiotic therapy for sinusitis. She reports having pain in her soft palate on the right side. She has cough, which tends to be worse in the morning. She thinks that may be related to her CPAP. She is short of breath with activity. She has not been having chest pain. She recently had an isolated episode of nausea/vomiting. She is taking Prilosec for acid reflux. Bowel function has been okay. She has a control problem with her bladder. She also has arthritis pain in her hands and feet. She has been having headache more frequently. She has difficulty with equilibrium/balance, enough that she is using a walker. She has some numbness in her arms and hands. Medications: Allopurinol 1 Tablet (of 200 mg) Oral daily, Ambien 1 Tablet (of 5 mg) Oral at bedtime, Calcium 1 Tablet (of 150 mg) Oral b.i.d., Carbidopa-Levodopa ER 1 Tablet (of 25-250 mg) Tablet, controlled release Oral b.i.d., CeleBREX 1 (200 mg) Capsule Oral b.i.d., Demadex 1 (20 mg) Tablet Oral daily PRN, Diovan 1 (160 mg) Tablet Oral b.i.d., Effexor XR 1 (75 mg) Capsule SR 24 HR Oral daily, Flexeril 1 (10 mg) Tablet Oral at bedtime, Hydrocodone-Acetaminophen 1 (7.5-325 mg) Tablet Oral four times a day PRN, Levothroid 1 (150 mcg) Tablet Oral daily, Lipitor 1 (40 mg) Tablet Oral at bedtime, Multivitamin Adult 1 Tablet Oral daily, Pantoprazole Sodium 1 (40 mg) Tablet, enteric coated Oral daily, predniSONE 1 Tablet (of 5 mg) Oral daily, Proventil HFA 2 puff(s) (of 108 (90 Base) mcg/act) Aerosol, solution Inhalation four times a day PRN, Singulair 1 (10 mg) Tablet Oral at bedtime, [id number] 1 Tablet b.i.d. on Every Other Day, Vitamin D 1 (400 Units) Capsule Oral daily Allergies: Adhesive Tape, beta blockers, betadine, Durmabond, and verapamil. Vital Signs: Performed on Oct 12, 2021 13:28 Height - 62.00 in Weight - 249.4 lbs (LOW) BSA - 2.10 sq.m BMI - 45.62 (HIGH) Temperature - 98.1 F (LOW) Pulse - 92 /min Respiration - 18 /min BP - 153/81 mm(hg) (HIGH) O2 Sat - 96 % Pain - 8 Fatigue - 5 Physical Examination: Constitutional - She has limited mobility, Eyes - Sclerae nonicteric. Conjunctivae clear, ENMT - No lesions noted in the oral cavity, Hematologic/Lymphatic - No cervical, clavicular, or axillary adenopathy, Respiratory - Lungs sound clear, Cardiovascular - Heart rhythm is regular. There is a II/ systolic murmur. There is no gallop or rub noted, Abdomen - Moderately distended but soft. Liver and spleen are not enlarged. There is no abdominal mass or ascites noted and there is no inguinal adenopathy, Extremities - No edema, Neurologic - There are no focal neurologic deficits noted. Lab/Imaging: CBC shows hemoglobin 9.8 g, white blood cell count 6800, and platelet count 333,000. The red cell indices are macrocytic with MCV 108.7 and MCH 34.1. Comprehensive metabolic profile shows stable renal function with BUN 39 and creatinine 1.3 mg/dL. Alkaline phosphatase is slightly elevated 112/105 IUs/L. The bilirubin and other liver enzymes are normal. LDH is slightly elevated at 216/214 U/L. B12 level is normal at 912 pg/mL. The serum iron studies show borderline low transferrin saturation at 21.3%. Ferritin is in the low normal range at 57 ng/mL. The serum protein electrophoresis shows stable M protein quantitating at 0.1 g/dL. The serum free light chain assay shows slightly elevated free kappa light chain at 23.4 mg/L with further increase in the free lambda light chain to 1216.5 mg/L and further decrease in the kappa/lambda ratio to 0.02. Problem List: 1. Monoclonal gammopathy of undetermined significance. 2. Hypertension. 3. Hyperlipidemia. 4. Chronic kidney disease. 5. Cardiomyopathy and congestive heart failure, but without evidence of amyloidosis. 6. Miild anemia. 7. Hypothyroidism. 8. GERD. 9. Asthma. 10. Obstructive sleep apnea. 11. Degenerative arthritis/degenerative disease of the spine. 12. Hereditary and idiopathic peripheral neuropathy. Problems Addressed with this Encounter and Plan: 1. The patient has a monoclonal gammopathy characterized by a persistently elevated serum free lambda light chain. This was initially discovered in 2009, and at that time it was suspected that she had an early stage of plasma cell dyscrasia. During follow-up there has been some fluctuation in the level of her free lambda light chain. Her current protein electrophoresis studies show stable M protein at 0.1 g/dL. The lambda free light chain has increased significantly to 1216.5 mg/L, that has been associated with a further decline in the free kappa/lambda ratio to 0.02. As yet the significance remains uncertain, as there still has been no evidence of symptomatic myeloma. She does require ongoing observation. She will be returning in December and I will have her laboratory studies repeated at that time. I will then plan a 3-month interval follow-up visit. 2. She has mild anemia. Her previous studies were suggestive of iron deficiency. She was given parenteral iron replacement with Injectafer in August 2016, but with no significant improvement in the anemia. Following back surgery in May 2021 her hemoglobin dropped to as low as 8.3 g, that has improved on oral iron supplementation. She now remains mildly anemic with slightly macrocytic red cell indices. There may still be some component of iron deficiency, as her transferrin saturation and ferritin are both in the low normal range. She will continue her oral iron supplement. Signed By: Liborio Hackett M.D. <<Signature on File>>
== END 2021-10-12 13:00 | disposition home or self-care (01) ==
LOC: ONCMED 13:00
PROVIDERS: PCP Internal Medicine; Visit Provider Internal Medicine Medical Oncology
DX: D47.2 Monoclonal gammopathy (principal); I12.9 Hypertensive chronic kidney disease with stage 1 through stage 4 chronic kidney disease, or unspecified chronic kidney disease; E78.5 Hyperlipidemia, unspecified; N18.9 Chronic kidney disease, unspecified; I42.9 Cardiomyopathy, unspecified; I50.9 Heart failure, unspecified; D64.9 Anemia, unspecified; E03.9 Hypothyroidism, unspecified; K21.9 Gastro-esophageal reflux disease without esophagitis; J45.909 Unspecified asthma, uncomplicated; G47.33 Obstructive sleep apnea (adult) (pediatric); G31.89 Other specified degenerative diseases of nervous system; G60.8 Other hereditary and idiopathic neuropathies; Z79.899 Other long term (current) drug therapy
CPT/HCPCS: 99214

== ENCOUNTER 2021-12-05 06:00 | Oncology outpatient (recurring) (ONCR) | payer MEDICARE, OTHER, SELFPAY ==
[2021-12-05 13:43] LABS: Basophils % 0.3 %; Eosinophils # 0.2 10^3/uL (0.0-0.8); Hematocrit 31.2 % (37.0-47.0); Hemoglobin 9.6 g/dL (11.5-15.3); Lymphocytes # 1.3 10^3/uL (0.8-4.8); Lymphocytes % 12.8 %; Mean Corpuscular HGB Conc 30.8 g/dL (30.0-36.0); Mean Corpuscular Hemoglobin 33.2 pg (28.0-34.0); Mean Platelet Volume 9.7 fL (7.4-10.4); Monocytes # 0.8 10^3/uL (0.2-0.9); Monocytes % 7.5 %; Neutrophils # 8.08 10^3/uL (1.8-7.7); Neutrophils % 77.2 %; Nucleated Red Blood Cells % 0 %; Platelet Count 354 10^3/cmm (130-400); Red Blood Count 2.89 10^6/uL (4.1-5.3); Red Cell Distribution Width 14.2 % (12.1-15.1); White Blood Count 10.5 10^3/uL (4.0-10.0)
[2021-12-05 14:02] LABS: Alanine Aminotransferase 11 U/L (0-33); Albumin Level 4.1 g/dL (3.5-5.2); Alkaline Phosphatase 117 IU/L (35-105); Aspartate Amino Transferase 15 U/L (0-32); C Reactive Protein 30.4 mg/L (0.0-4.9); Ferritin 92 ng/mL (15-150); Globulin 3.5 g/dL (1.3-4.6); Iron 31 ug/dL (37-145); Percent Saturation 10.1 % (20-50); Total Bilirubin 0.2 mg/dL (0.15-1.2); Total Iron Binding Capacity 306 mcg/dl; Total Protein 7.6 g/dL (6.6-8.7); Unsaturated Iron Binding 275 ug/dL (112-347); Uric Acid 5.9 mg/dL (2.4-5.7)
[2021-12-06 06:43] LABS: PROTEIN, TOTAL 6.6 g/dL (6.1-8.1)
[2021-12-06 15:13] LABS: ABNORMAL PROTEIN BAND 1 0.2 g/dL (NONE DETECTED); ALBUMIN 3.6 g/dL (3.8-4.8); ALPHA 1 GLOBULIN 0.5 g/dL (0.2-0.3); ALPHA 2 GLOBULIN 1.2 g/dL (0.5-0.9); BETA 1 GLOBULIN 0.4 g/dL (0.4-0.6); BETA 2 GLOBULIN 0.4 g/dL (0.2-0.5); GAMMA GLOBULIN 0.5 g/dL (0.8-1.7)
[2021-12-06 15:27] LABS: KAPPA LIGHT CHAIN, FREE, SERUM 23.2 mg/L (3.3-19.4); KAPPA/LAMBDA LIGHT CHAINS FREE 0.02 (0.26-1.65); LAMBDA LIGHT CHAIN, FREE, SERU 1499.5 mg/L (5.7-26.3)
== END 2022-01-03 23:59 | disposition home or self-care (01) ==
PROVIDERS: Internal Medicine Rheumatology; PCP Internal Medicine; Visit Provider Internal Medicine Medical Oncology
DX: D50.8 Other iron deficiency anemias (principal); Z79.899 Other long term (current) drug therapy; M10.9 Gout, unspecified; R06.02 Shortness of breath; I42.8 Other cardiomyopathies; E78.5 Hyperlipidemia, unspecified; I12.9 Hypertensive chronic kidney disease with stage 1 through stage 4 chronic kidney disease, or unspecified chronic kidney disease; N18.30 Chronic kidney disease, stage 3 unspecified; G47.30 Sleep apnea, unspecified; E66.01 Morbid (severe) obesity due to excess calories; Z68.42 Body mass index [BMI] 45.0-49.9, adult; D47.2 Monoclonal gammopathy
CPT/HCPCS: 80076; 82565; 82728; 83540; 83550; 83883; 84155; 84165; 84550; 85025; 86140; 99214

== ENCOUNTER 2021-12-28 12:50 | Outpatient (CLI) | payer MEDICARE, OTHER, SELFPAY ==
--- NOTE | 2021-12-28 13:00 | USCV_ITS ---
Maryjo Lynn Age: 76 Gender: F : 1945 Exam Date: 12/28/2021 14:15 Ordering Phys: Carolina Bowen MD ([email or web address]) Technologist: DEAN Exam Location: [facility] [place] Indication: hx ischemic cardiomyopathy BP: / HR: 88 Rhythm: Sinus Technical Quality: Adequate MEASUREMENTS (Male / Female) Normal Values 2D ECHO LV Diastolic Diameter PLAX 6.0 cm 4.2 - 5.9 / 3.9 - 5.3 cm LV Systolic Diameter PLAX 5.0 cm IVS Diastolic Thickness 1.1 cm 0.6 - 1.0 / 0.6 - 0.9 cm IVS Systolic Thickness 1.6 cm LVPW Diastolic Thickness 1.6 cm 0.6 - 1.0 / 0.6 - 0.9 cm LVPW Systolic Thickness 1.6 cm LVOT Diameter 2.0 cm LV Ejection Fraction 2D Teich 32.5 % LV Ejection Fraction MOD 2C 46.9 % LV Ejection Fraction 2C AL 46.9 % LA Diameter 4.5 cm LA Width 4.6 cm LA Height 5.3 cm RA Width 3.3 cm RA Height 3.9 cm Aorta at Sinotubular Diameter 2.6 cm M-MODE Aortic Annulus Diameter 3.0 cm LA Ao Ratio MM 1.5 MV E Point Septal Separation 2.5 cm DOPPLER AV Peak Velocity 176.0 cm/s LVOT Peak Velocity 68.0 cm/s AV Area Cont Eq vti 1.2 cm squared AV Area Cont Eq pk 1.2 cm squared MV Area PHT 5.0 cm squared Mitral E to A Ratio 0.9 MV E' Velocity 67.0 cm/s Mitral E to MV E' Ratio 22.3 Mitral E to LV E' Lateral Ratio 23.5 Mitral E to LV E' Septal Ratio 21.5 TR Peak Velocity 239.0 cm/s TR Peak Gradient 22.8 mmHg TV Peak E Velocity 61.0 cm/s Right Atrial Pressure 10.0 mmHg Pulmonary Artery Systolic Pressu 32.8 mmHg PV Peak Velocity 120.0 cm/s FINDINGS Left Ventricle Left ventricle is dilated. LV systolic function is mild to moderately reduced with EF of 40-45%. Mild global hypokinesis with moderate hypokinesis of the inferolateral wall. Grade 2 diastolic dysfunction Right Ventricle The right ventricle is normal in size and function. Right Atrium The right atrium is normal in size. Left Atrium The left atrium is dilated Mitral Valve Mild mitral annular calcification without significant stenosis or prolapse. There is mild to moderate mitral regurgitation. Aortic Valve Thickened aortic valve. No significant stenosis. There is no aortic regurgitation. Tricuspid Valve Structurally normal tricuspid valve without significant stenosis. Mild tricuspid regurgitation. Pulmonary artery systolic pressure is normal. Pulmonic Valve Trace pulmonic regurgitation Pericardium Normal pericardium without effusion. Aorta Normal ascending aorta dimension. IVC CONCLUSIONS Left ventricle is mildly dilated. LV systolic function is mild to moderately reduced with EF of 40 to 45%. Mild global hypokinesis with moderate hypokinesis of inferolateral wall is seen. Grade 2 diastolic dysfunction. Left atrium is dilated. Moderate mitral regurgitation. Mild tricuspid regurgitation. Trace pulmonic regurgitation. Compared to prior echocardiogram from 2019, LV systolic function has improved slightly Chava Harris MD (Electronically Signed) Final Date: 11 January 2022 12:57 S
[2021-12-28] MEDS: perflutren protein-a microsphr 0.22 mg/mL SDV 3 mL IV (14:12)
== END 2021-12-28 12:51 | disposition home or self-care (01) ==
LOC: RAD 12:53
PROVIDERS: PCP Internal Medicine; Visit Provider Internal Medicine Cardiovascular Disease
DX: I08.3 Combined rheumatic disorders of mitral, aortic and tricuspid valves (principal); R06.02 Shortness of breath
CPT/HCPCS: 93306

== ENCOUNTER → 2022-02-07 12:47 | Outpatient (BNVA) | payer MEDICARE, OTHER, SELFPAY | PROVIDERS: PCP Internal Medicine; Visit Provider Orthopaedic Surgery | DX: Z47.89 Encounter for other orthopedic aftercare (principal); Z98.890 Other specified postprocedural states; M54.2 Cervicalgia | CPT/HCPCS: 72100; 99213 ==

== ENCOUNTER → 2022-02-08 09:37 | Outpatient (BNVA) | payer MEDICARE, OTHER, SELFPAY | PROVIDERS: PCP Internal Medicine; Visit Provider Podiatrist Foot & Ankle Surgery | DX: S82.831A Other fracture of upper and lower end of right fibula, initial encounter for closed fracture (principal); W01.0XXA Fall on same level from slipping, tripping and stumbling without subsequent striking against object, initial encounter | CPT/HCPCS: 73610; 99214 ==

== ENCOUNTER 2022-02-08 14:24 | Outpatient (CLI) | payer MEDICARE, OTHER, SELFPAY | END 2022-02-08 14:25 | disposition home or self-care (01) | LOC: SPT 14:25 | PROVIDERS: PCP Internal Medicine; Visit Provider Podiatrist Foot & Ankle Surgery | DX: Z46.89 Encounter for fitting and adjustment of other specified devices (principal); S82.831D Other fracture of upper and lower end of right fibula, subsequent encounter for closed fracture with routine healing; X58.XXXD Exposure to other specified factors, subsequent encounter | CPT/HCPCS: 97760; L4361 ==

== ENCOUNTER → 2022-02-22 08:37 | Outpatient (BNVA) | payer MEDICARE, OTHER, SELFPAY | PROVIDERS: PCP Internal Medicine; Visit Provider Podiatrist Foot & Ankle Surgery | DX: S82.831A Other fracture of upper and lower end of right fibula, initial encounter for closed fracture (principal); W10.1XXA Fall (on)(from) sidewalk curb, initial encounter; M25.571 Pain in right ankle and joints of right foot | CPT/HCPCS: 73610; 99213; 99214 ==

== ENCOUNTER → 2022-03-09 13:39 | Outpatient (BNVA) | payer MEDICARE, OTHER, SELFPAY | PROVIDERS: PCP Internal Medicine; Visit Provider Podiatrist Foot & Ankle Surgery | DX: S82.831D Other fracture of upper and lower end of right fibula, subsequent encounter for closed fracture with routine healing; W01.0XXD Fall on same level from slipping, tripping and stumbling without subsequent striking against object, subsequent encounter | CPT/HCPCS: 73610; 99214 ==

== ENCOUNTER → 2022-03-13 09:29 | Outpatient (BNVA) | payer MEDICARE, OTHER, SELFPAY | PROVIDERS: PCP Internal Medicine; Visit Provider Internal Medicine Rheumatology | DX: M15.4 Erosive (osteo)arthritis (principal); E79.0 Hyperuricemia without signs of inflammatory arthritis and tophaceous disease; Z79.899 Other long term (current) drug therapy; M48.061 Spinal stenosis, lumbar region without neurogenic claudication; M54.16 Radiculopathy, lumbar region; N18.9 Chronic kidney disease, unspecified; M72.2 Plantar fascial fibromatosis; Z98.1 Arthrodesis status; Z96.651 Presence of right artificial knee joint; Z96.612 Presence of left artificial shoulder joint | CPT/HCPCS: 99214 ==

== ENCOUNTER 2022-03-13 12:46 | Outpatient (CLI) | payer MEDICARE, OTHER, SELFPAY ==
[2022-03-13 13:43] LABS: Basophils % 0.6 %; Eosinophils # 0.3 10^3/uL (0.0-0.8); Eosinophils % 3.8 %; Hematocrit 29.5 % (37.0-47.0); Hemoglobin 9.7 g/dL (11.5-15.3); Lymphocytes # 1.1 10^3/uL (0.8-4.8); Lymphocytes % 16.1 %; Mean Corpuscular HGB Conc 32.9 g/dL (30.0-36.0); Mean Corpuscular Hemoglobin 34.5 pg (28.0-34.0); Mean Platelet Volume 10.2 fL (7.4-10.4); Monocytes # 0.6 10^3/uL (0.2-0.9); Monocytes % 8.9 %; Neutrophils # 4.98 10^3/uL (1.8-7.7); Neutrophils % 70.3 %; Nucleated Red Blood Cells % 0 %; Platelet Count 246 10^3/cmm (130-400); Red Blood Count 2.81 10^6/uL (4.1-5.3); Red Cell Distribution Width 14.9 % (12.1-15.1); White Blood Count 7.1 10^3/uL (4.0-10.0)
[2022-03-13 13:58] LABS: Erythrocyte Sedimentation Rate 23 mm/hr (0-15)
[2022-03-13 14:11] LABS: Alanine Aminotransferase 17 U/L (0-33); Albumin Level 4.5 g/dL (3.5-5.2); Alkaline Phosphatase 152 IU/L (35-105); Aspartate Amino Transferase 24 U/L (0-32); Ferritin 84 ng/mL (15-150); Globulin 2.3 g/dL (1.3-4.6); Iron 76 ug/dL (37-145); Percent Saturation 26.1 % (20-50); Total Bilirubin 0.2 mg/dL (0.15-1.2); Total Iron Binding Capacity 291 mcg/dl; Total Protein 6.8 g/dL (6.6-8.7); Unsaturated Iron Binding 215 ug/dL (112-347); Uric Acid 5.1 mg/dL (2.4-5.7)
[2022-03-14 08:38] LABS: PROTEIN, TOTAL 6.4 g/dL (6.1-8.1)
[2022-03-14 11:54] LABS: KAPPA LIGHT CHAIN, FREE, SERUM 32.9 mg/L (3.3-19.4); KAPPA/LAMBDA LIGHT CHAINS FREE 0.03 (0.26-1.65); LAMBDA LIGHT CHAIN, FREE, SERU 1272.9 mg/L (5.7-26.3)
[2022-03-14 16:08] LABS: ABNORMAL PROTEIN BAND 1 0.1 g/dL (NONE DETECTED); ALBUMIN 3.9 g/dL (3.8-4.8); ALPHA 1 GLOBULIN 0.4 g/dL (0.2-0.3); BETA 1 GLOBULIN 0.4 g/dL (0.4-0.6); BETA 2 GLOBULIN 0.3 g/dL (0.2-0.5); GAMMA GLOBULIN 0.5 g/dL (0.8-1.7)
[2022-03-16 03:47] LABS: CARDIOLIPIN AB (IGA) <2.0 APL-U/mL; CARDIOLIPIN AB (IGG) <2.0 GPL-U/mL; CARDIOLIPIN AB (IGM) <2.0 MPL-U/mL
== END 2022-03-13 12:47 | disposition home or self-care (01) ==
PROVIDERS: Absent Provider Internal Medicine Medical Oncology; PCP Internal Medicine; Visit Provider Internal Medicine Rheumatology
DX: M10.9 Gout, unspecified (principal); M43.17 Spondylolisthesis, lumbosacral region; Z79.899 Other long term (current) drug therapy; D50.8 Other iron deficiency anemias
CPT/HCPCS: 36415; 80076; 82565; 82728; 83540; 83550; 83883; 84155; 84165; 84550; 85025; 85651; 86140; 86147

== ENCOUNTER 2022-03-22 10:51 | Oncology outpatient (recurring) (ONCR) | payer MEDICARE, OTHER, SELFPAY ==
[2022-03-23 16:24] LABS: CREATININE, 24 HOUR URINE 0.86 g/24 h (0.50-2.15); PROTEIN, TOTAL, 24 HR UR 76 mg/24 h (<150); Protein/Creatinine Ratio 0.089 (< OR = 0.114); Protein/Creatinine Ratio 89 mg/g creat (< OR = 114)
[2022-03-27 11:54] LABS: ALBUMIN 0 %; ALPHA-1-GLOBULINS 0 %; ALPHA-2-GLOBULINS 0 %; BETA GLOBULINS 0 %; GAMMA GLOBULINS 0 %
== END 2022-04-05 23:59 | disposition home or self-care (01) ==
LOC: ONCMED 10:52
PROVIDERS: PCP Internal Medicine; Visit Provider Internal Medicine Medical Oncology
DX: D47.2 Monoclonal gammopathy (principal); D64.9 Anemia, unspecified; Z79.899 Other long term (current) drug therapy
CPT/HCPCS: 84156; 84166; 99214

== ENCOUNTER → 2022-03-23 13:22 | Outpatient (BNVA) | payer MEDICARE, OTHER, SELFPAY | PROVIDERS: PCP Internal Medicine; Visit Provider Podiatrist Foot & Ankle Surgery | DX: Z98.890 Other specified postprocedural states (principal) | CPT/HCPCS: 73610 ==

== ENCOUNTER 2022-03-23 14:26 | Outpatient (CLI) | payer MEDICARE, OTHER, SELFPAY | END 2022-03-23 14:27 | disposition home or self-care (01) | LOC: SPT 14:27 | PROVIDERS: PCP Internal Medicine; Visit Provider Podiatrist Foot & Ankle Surgery | DX: Z47.89 Encounter for other orthopedic aftercare (principal); Z98.890 Other specified postprocedural states; S82.831A Other fracture of upper and lower end of right fibula, initial encounter for closed fracture; W01.0XXA Fall on same level from slipping, tripping and stumbling without subsequent striking against object, initial encounter | CPT/HCPCS: 97760; 99214; L1902 ==

== ENCOUNTER → 2022-04-20 09:15 | Outpatient (BNVA) | payer MEDICARE, OTHER, SELFPAY | PROVIDERS: PCP Internal Medicine; Visit Provider Podiatrist Foot & Ankle Surgery | DX: S82.831A Other fracture of upper and lower end of right fibula, initial encounter for closed fracture (principal); Z98.890 Other specified postprocedural states; W18.40XA Slipping, tripping and stumbling without falling, unspecified, initial encounter | CPT/HCPCS: 73610; 99214 ==

== ENCOUNTER → 2022-05-15 11:21 | Outpatient (BNVA) | payer MEDICARE, OTHER, SELFPAY | PROVIDERS: PCP Internal Medicine; Visit Provider Podiatrist Foot & Ankle Surgery | DX: W17.89XA Other fall from one level to another, initial encounter (principal); Z98.890 Other specified postprocedural states; S82.831A Other fracture of upper and lower end of right fibula, initial encounter for closed fracture | CPT/HCPCS: 73610; 73620; 99214 ==

== ENCOUNTER 2022-05-26 15:39 | Outpatient (CLI) | payer MEDICARE, OTHER, SELFPAY ==
[2022-05-26 16:41] LABS: Basophils % 0.3 %; Eosinophils # 0.3 10^3/uL (0.0-0.8); Eosinophils % 3.4 %; Hematocrit 31.6 % (37.0-47.0); Hemoglobin 9.8 g/dL (11.5-15.3); Lymphocytes % 11.1 %; Mean Corpuscular Hemoglobin 34.4 pg (28.0-34.0); Mean Corpuscular Volume 110.9 fl (81-99); Mean Platelet Volume 9.9 fL (7.4-10.4); Monocytes % 10.9 %; Neutrophils % 73.9 %; Nucleated Red Blood Cells % 0 %; Platelet Count 242 10^3/cmm (130-400); Red Blood Count 2.85 10^6/uL (4.1-5.3); Red Cell Distribution Width 13.7 % (12.1-15.1); White Blood Count 9.1 10^3/uL (4.0-10.0)
[2022-05-26 17:12] LABS: Calcium 9.3 mg/dL (8.5-10.5)
[2022-05-26 17:16] LABS: Anion Gap 16.4 (5-19); Blood Urea Nitrogen 56 mg/dL (8-23); Calcium 9.5 mg/dL (8.5-10.5); Carbon Dioxide 25 mmol/L (22-29); Chloride 103 mmol/L (98-107); Glucose 100 mg/dL (65-115); Iron 69 ug/dL (37-145); Percent Saturation 24.7 % (20-50); Phosphorus 4.5 mg/dL (2.5-4.5); Potassium 4.4 mmol/L (3.5-5.1); Sodium 140 mmol/L (136-145); Total Iron Binding Capacity 279 mcg/dl; Unsaturated Iron Binding 210 ug/dL (112-347)
[2022-05-26 17:19] LABS: Parathyroid Hormone 133.8 pg/mL (15-65)
[2022-05-26 17:29] LABS: 25 Hydroxy Vitamin D 61 ng/mL (30-100)
== END 2022-05-26 15:40 | disposition home or self-care (01) ==
LOC: LAB 15:58
PROVIDERS: PCP Internal Medicine; Visit Provider Internal Medicine Nephrology
DX: N18.4 Chronic kidney disease, stage 4 (severe) (principal)
CPT/HCPCS: 36415; 80069; 82306; 82310; 83540; 83550; 83970; 85025

== ENCOUNTER → 2022-06-12 14:52 | Outpatient (BNVA) | payer MEDICARE, OTHER, SELFPAY | PROVIDERS: PCP Internal Medicine; Visit Provider Internal Medicine Cardiovascular Disease | DX: R06.02 Shortness of breath (principal); I42.8 Other cardiomyopathies; I12.9 Hypertensive chronic kidney disease with stage 1 through stage 4 chronic kidney disease, or unspecified chronic kidney disease; N18.9 Chronic kidney disease, unspecified | CPT/HCPCS: 99214 ==

== ENCOUNTER 2022-07-12 10:29 | Oncology outpatient (recurring) (ONCR) | payer MEDICARE, OTHER, SELFPAY ==
[2022-07-12 10:49] LABS: Basophils % 0.6 %; Eosinophils # 0.3 10^3/uL (0.0-0.8); Eosinophils % 4.2 %; Hematocrit 32.9 % (37.0-47.0); Hemoglobin 10.3 g/dL (11.5-15.3); Lymphocytes # 1.1 10^3/uL (0.8-4.8); Lymphocytes % 16.3 %; Mean Corpuscular HGB Conc 31.3 g/dL (30.0-36.0); Mean Corpuscular Hemoglobin 34.9 pg (28.0-34.0); Mean Corpuscular Volume 111.5 fl (81-99); Mean Platelet Volume 10.2 fL (7.4-10.4); Monocytes # 0.7 10^3/uL (0.2-0.9); Neutrophils # 4.47 10^3/uL (1.8-7.7); Neutrophils % 67.7 %; Nucleated Red Blood Cells % 0 %; Platelet Count 255 10^3/cmm (130-400); Red Blood Count 2.95 10^6/uL (4.1-5.3); Red Cell Distribution Width 14.2 % (12.1-15.1); White Blood Count 6.6 10^3/uL (4.0-10.0)
[2022-07-12 11:08] LABS: Alanine Aminotransferase 9 U/L (0-33); Albumin Level 4.3 g/dL (3.5-5.2); Alkaline Phosphatase 105 U/L (35-105); Anion Gap 16.9 (5-19); Aspartate Amino Transferase 19 U/L (0-32); Blood Urea Nitrogen 64 mg/dL (8-23); Calcium 9.8 mg/dL (8.5-10.5); Carbon Dioxide 26 mmol/L (22-29); Chloride 103 mmol/L (98-107); Globulin 2.4 g/dL (1.3-4.6); Glucose 100 mg/dL (65-115); Immunoglobulin IGA 100 mg/dL (70-400); Immunoglobulin IGG 489 mg/dL (700-1600); Immunoglobulin IGM 27 mg/dL (40-230); Osmolality Calculated 310 mOsm/kg (285-295); Potassium 4.9 mmol/L (3.5-5.1); Sodium 141 mmol/L (136-145); Total Bilirubin 0.2 mg/dL (0.15-1.2); Total Protein 6.7 g/dL (6.6-8.7)
[2022-07-12 11:24] LABS: Iron 69 ug/dL (37-145); Percent Saturation 22.9 % (20-50); Total Iron Binding Capacity 301 mcg/dl; Unsaturated Iron Binding 232 ug/dL (112-347)
[2022-07-12 11:31] LABS: Erythrocyte Sedimentation Rate 14 mm/hr (0-15)
[2022-07-12 11:40] LABS: Vitamin B12 1454 pg/mL (232-1245)
[2022-07-14 02:09] LABS: PROTEIN, TOTAL 6.5 g/dL (6.1-8.1)
[2022-07-14 09:03] LABS: ABNORMAL PROTEIN BAND 1 0.1 g/dL (NONE DETECTED); ALBUMIN 4.1 g/dL (3.8-4.8); ALPHA 1 GLOBULIN 0.4 g/dL (0.2-0.3); ALPHA 2 GLOBULIN 0.9 g/dL (0.5-0.9); BETA 1 GLOBULIN 0.4 g/dL (0.4-0.6); BETA 2 GLOBULIN 0.3 g/dL (0.2-0.5); GAMMA GLOBULIN 0.5 g/dL (0.8-1.7)
[2022-07-14 13:08] LABS: KAPPA/LAMBDA LIGHT CHAINS FREE 0.03 (0.26-1.65); LAMBDA LIGHT CHAIN, FREE, SERU 1089.5 mg/L (5.7-26.3)
== END 2022-08-05 23:59 | disposition home or self-care (01) ==
PROVIDERS: PCP Internal Medicine; Visit Provider Internal Medicine Medical Oncology
DX: D47.2 Monoclonal gammopathy (principal); R77.9 Abnormality of plasma protein, unspecified; R74.8 Abnormal levels of other serum enzymes; Z79.899 Other long term (current) drug therapy
CPT/HCPCS: 36415; 80053; 82607; 82784; 83540; 83550; 83883; 84155; 84165; 85025; 85651; 99214

== ENCOUNTER 2022-07-17 12:30 | Outpatient (CLI) | payer MEDICARE, OTHER, SELFPAY ==
[2022-07-18 14:55] LABS: CREATININE, 24 HOUR URINE 0.76 g/24 h (0.50-2.15); PROTEIN, TOTAL, 24 HR UR NOTE mg/24 h (<150); Protein/Creatinine Ratio NOTE (<0.150); Protein/Creatinine Ratio NOTE mg/g creat (<150)
[2022-07-19 17:19] LABS: ALBUMIN 0 %; ALPHA-1-GLOBULINS 0 %; ALPHA-2-GLOBULINS 0 %; BETA GLOBULINS 0 %; GAMMA GLOBULINS 0 %
== END 2022-07-17 12:31 | disposition home or self-care (01) ==
LOC: LAB 12:31
PROVIDERS: PCP Internal Medicine; Visit Provider Internal Medicine Medical Oncology
DX: D47.2 Monoclonal gammopathy (principal); D50.8 Other iron deficiency anemias
CPT/HCPCS: 84156; 84166

== ENCOUNTER → 2022-09-13 14:21 | Outpatient (BNVA) | payer MEDICARE, OTHER, SELFPAY | PROVIDERS: PCP Internal Medicine; Visit Provider Internal Medicine Rheumatology | DX: M15.4 Erosive (osteo)arthritis (principal); Z79.899 Other long term (current) drug therapy; E79.0 Hyperuricemia without signs of inflammatory arthritis and tophaceous disease; N18.30 Chronic kidney disease, stage 3 unspecified; M72.2 Plantar fascial fibromatosis; Z98.1 Arthrodesis status; Z96.651 Presence of right artificial knee joint; Z96.611 Presence of right artificial shoulder joint; Z96.612 Presence of left artificial shoulder joint; M47.26 Other spondylosis with radiculopathy, lumbar region; M48.061 Spinal stenosis, lumbar region without neurogenic claudication; D47.2 Monoclonal gammopathy | CPT/HCPCS: 20600; 99214; J1030 ==

== ENCOUNTER 2023-01-17 13:29 | Oncology outpatient (recurring) (ONCR) | payer MEDICARE, OTHER, SELFPAY ==
[2023-01-04 16:05] VITALS: BP 141/68; PULSE 63; RESP 18; TEMP 36.8; O2SAT 94
[2023-01-04 16:45] LABS: Basophils % 0.5 %; Eosinophils # 0.2 10^3/uL (0.0-0.8); Eosinophils % 3.3 %; Hematocrit 33.4 % (37.0-47.0); Hemoglobin 10.5 g/dL (11.5-15.3); Lymphocytes # 1.1 10^3/uL (0.8-4.8); Mean Corpuscular HGB Conc 31.4 g/dL (30.0-36.0); Mean Corpuscular Hemoglobin 34.5 pg (28.0-34.0); Mean Corpuscular Volume 109.9 fl (81-99); Monocytes # 0.6 10^3/uL (0.2-0.9); Neutrophils % 68.9 %; Nucleated Red Blood Cells % 0 %; Platelet Count 248 10^3/cmm (130-400); Red Blood Count 3.04 10^6/uL (4.1-5.3); Red Cell Distribution Width 13.7 % (12.1-15.1); White Blood Count 6.1 10^3/uL (4.0-10.0)
[2023-01-04 17:26] LABS: Alanine Aminotransferase 48 U/L (0-33); Albumin Level 3.4 g/dL (3.5-5.2); Alkaline Phosphatase 60 U/L (35-105); Aspartate Amino Transferase 188 U/L (0-32); Blood Urea Nitrogen 35 mg/dL (8-23); Calcium 7.9 mg/dL (8.5-10.5); Carbon Dioxide 24 mmol/L (22-29); Chloride 96 mmol/L (98-107); Globulin 2.4 g/dL (1.3-4.6); Glucose 128 mg/dL (65-115); Immunoglobulin IGA 142 mg/dL (70-400); Immunoglobulin IGG 675 mg/dL (700-1600); Immunoglobulin IGM 25 mg/dL (40-230); Osmolality Calculated 282 mOsm/kg (285-295); Sodium 131 mmol/L (136-145); Total Bilirubin 0.4 mg/dL (0.15-1.2); Total Protein 5.8 g/dL (6.6-8.7)
[2023-01-07 06:04] LABS: PROTEIN, TOTAL 6.5 g/dL (6.1-8.1)
[2023-01-08 11:34] LABS: KAPPA LIGHT CHAIN, FREE, SERUM 23.2 mg/L (3.3-19.4); KAPPA/LAMBDA LIGHT CHAINS FREE 0.02 (0.26-1.65); LAMBDA LIGHT CHAIN, FREE, SERU 1074.9 mg/L (5.7-26.3)
[2023-01-09 11:14] LABS: PROTEIN, TOTAL, 24 HR UR 96 mg/24 h (<150); Protein/Creatinine Ratio 0.087 (<0.150); Protein/Creatinine Ratio 87 mg/g creat (<150)
[2023-01-09 14:05] LABS: ABNORMAL PROTEIN BAND 1 0.1 g/dL (NONE DETECTED); ALBUMIN 4.1 g/dL (3.8-4.8); ALPHA 1 GLOBULIN 0.4 g/dL (0.2-0.3); ALPHA 2 GLOBULIN 0.9 g/dL (0.5-0.9); BETA 1 GLOBULIN 0.5 g/dL (0.4-0.6); BETA 2 GLOBULIN 0.3 g/dL (0.2-0.5); GAMMA GLOBULIN 0.5 g/dL (0.8-1.7)
[2023-01-10 15:40] LABS: ALBUMIN 0 %; ALPHA-1-GLOBULINS 0 %; ALPHA-2-GLOBULINS 0 %; BETA GLOBULINS 0 %; GAMMA GLOBULINS 0 %
== END 2023-02-02 23:59 | disposition home or self-care (01) ==
PROVIDERS: PCP Internal Medicine; Visit Provider Internal Medicine Medical Oncology
DX: Z79.899 Other long term (current) drug therapy (principal)
CPT/HCPCS: 36415; 80053; 82784; 83883; 84155; 84156; 84165; 84166; 85025; 86334; 99213

== ENCOUNTER 2023-02-25 12:33 | Emergency (ER) | payer MEDICARE, OTHER, SELFPAY ==
[2023-02-25 12:42] VITALS: BP 142/70; PULSE 70; RESP 14; TEMP 36.8; O2SAT 94; BMI 45.7
--- NOTE | 2023-02-25 12:53 | ED_ITS ---
HPI - Extremity Problem General: Chief complaint: Extremity Injury, Lower Stated complaint: Right Foot Injury Time Seen by Provider: 02/25/23 12:48 History of Present Illness: Patient presents to the ER with worsening right midfoot pain on the medial side. Patient says she fell 10 days ago and right foot did not start hurting then but started hurting approximately 3 days ago. Feels like she is getting sharp stabbing pain when she puts pressure down on it. Patient is unable to sleep at times secondary to the pain. Patient is able to bear weight on it with pain. Review of Systems General: Reports: 10 or more systems reviewed and unremarkable except in HPI and below PFSH ED PFSH: Medical History Anxiety and depression Cervical disc disorder with myelopathy of mid-cervical region CKD (chronic kidney disease) Degenerative lumbar spinal stenosis Dyslipidemia Erosive osteoarthritis Essential hypertension GERD (gastroesophageal reflux disease) Gout, arthritis History of iron deficiency anemia Hyperuricemia Hypothyroidism Intervertebral disc disorder with radiculopathy of lumbosacral region MGUS (monoclonal gammopathy of unknown significance) Morbid obesity with BMI of 45.0-49.9, adult Nonischemic cardiomyopathy Obesity Peripheral neuropathy Sleep apnea Stenosis of cervical spine with myelopathy Surgical History History of arthroplasty of left shoulder History of knee joint replacement Left 06/2018 right 12/2017 History of lumbar laminectomy (05/13/21) Lumbar laminectomy at L4 and L5 with L4/5 interbody fusion and with L5/S1 interbody fusion History of surgical removal of ganglion cyst right wrist Hx of bilateral oophorectomy with Dr. Watts at [facility] in 1982 and left side 2010 right side done when had hysterectomy at [place] Hx of foot surgery Right x2-sub talur fusoin and arthrodesis Hx of hysterectomy Hx of tonsillectomy Status post reverse arthroplasty of right shoulder Family History Son Sarcoidosis Mother Cancer Sister Rheumatoid arthritis Grandmother Diabetes Father Cancer Myocardial infarction Social History Smoking and tobacco status: never smoked Second hand smoke exposure: No Alcohol intake: current Alcohol intake frequency: holidays/special occasions only Substance/Drug Use: never Household members: spouse Marital status: Current occupational status: employed Current occupation: [employer] Physical Exam Const: COMMON NORMALS: no acute distress, patient oriented x3, no limitations, healthy appearing, alert and well nourished HENMT: COMMON NORMALS: normocephalic, atraumatic, hearing grossly normal bilaterally, external ears normal and moist oral mucous membranes HEAD & SCALP: normocephalic and atraumatic EXTERNAL EAR: Yes external ears normal Neck/C-Spine: COMMON NORMALS: full ROM, no lymphadenopathy, supple, no meningeal signs, no JVD and Thyroid normal THYROID: Thyroid normal Resp: COMMON NORMALS: normal respiratory effort, No retractions, No use of accessory muscles and clear to auscultation bilaterally AUSCULTATION: clear to auscultation bilaterally Cardio: COMMON NORMALS: no JVD, regular rate, regular rhythm, S1 normal heart sound present, S2 normal heart sound present, No gallops present (Cardio), No clicks present (Cardio), No murmurs present (Cardio) and No rub (Cardio) RATE: regular rate RHYTHM: regular rhythm HEART SOUNDS: S1 normal heart sound present and S2 normal heart sound present GI: COMMON NORMALS: Normal to inspection, nondistended, normoactive bowel sounds present, Soft to palpation, non-tender, No hepatosplenomegaly present and no masses PALPATION: Yes Soft to palpation and Yes No hepatosplenomegaly present : COMMON NORMALS: Yes no CVA tenderness BLADDER/KIDNEY EXAM: Yes no CVA tenderness Back/Pelvis: COMMON NORMALS: no CVA tenderness Extremity: NARRATIVE EXTREMITY EXAM: Tenderness with palpation primarily on the dorsal medial aspect of the metatarsal region. There is some mild swelling and mild ecchymosis of the distal metatarsal region Neuro: COMMON NORMALS: patient oriented x3 SENSORIUM/ORIENTATION: Yes alert MENINGEAL SIGNS: Yes no meningeal signs Course Vital Signs: Vital signs: Vital Signs Temperature 98.2 F 02/25/23 12:42 Pulse Rate 70 02/25/23 12:42 Respiratory Rate 14 02/25/23 12:42 Blood Pressure 142/70 02/25/23 12:42 Pulse Oximetry 94 02/25/23 12:42 Oxygen Delivery Me thod Room Air 02/25/23 12:42 MDM - Extremity (Nontraumatic) Medical Decision Making Patient was in the ER with complaints of fall and then foot pain on right midfoot. X-ray was obtained which was negative for acute injury. Patient be discharged home to follow-up with PCP on an as-needed basis. Differential Diagnosis Unlikely herpes zoster, gout, cellulitis, superficial thrombophlebitis, deep venous thrombosis of upper extremity, lower extremity edema or deep vein thrombosis of lower extremity Medical Records I reviewed the patient's medical records. Lab Data I reviewed the patient's lab results. Radiology Impressions Foot X-Ray 02/25/23 12:54 IMPRESSION: 1. There is edema in the soft tissues most prominent dorsal to the midfoot and forefoot. 2. Extensive hardware in the hind and midfoot. 3. Multi-articular primary osteoarthritic changes as described above. 4. There is remote osseous fusion across the 2nd digit proximal interphalangeal joint. 5. Pes planus. Discharge Plan Discharge Patient Disposition: Home Clinical Impression: Acute pain of right foot Condition: Stable Prescriptions: No Action prednisone 5 mg tablet 5 mg PO DAILY PRN sennosides-docusate sodium [Senna Plus] 8.6-50 mg tablet 1 tab-cap PO DAILY PRN fluticasone propionate [Flonase Allergy Relief] 50 mcg/actuation spray,suspension 2 spray intranasal .hs Rx Instructions: administer into each nostril levothyroxine 150 mcg capsule 150 mcg PO DAILY multivitamin Tablet 1 tab PO BID torsemide 20 mg tablet 20 mg PO DAILY cyclobenzaprine 10 mg tablet 10 mg PO BEDTIME albuterol sulfate [ProAir HFA] 90 mcg/actuation HFA aerosol inhaler 2 puff INHALATION QID PRN (Reason: Wheezing) carbidopa-levodopa 50-200 mg tablet extended release 1 tab PO BID venlafaxine [Effexor XR] 75 mg capsule,extended release 24hr 75 mg PO DAILY cholecalciferol (vitamin D3) 25 mcg (1,000 unit) tablet 1,000 unit PO DAILY montelukast [Singulair] 10 mg tablet 10 mg PO BEDTIME zolpidem [Ambien] 5 mg tablet 5 mg PO BEDTIME PRN gabapentin 300 mg capsule 300 mg PO BEDTIME iron 10 mg tablet 10 mg PO TID tramadol [Ultram] 50 mg tablet 50 mg PO Q8H PRN (Reason: pain) 7 Days Qty: 21 0RF allopurinol 100 mg tablet 200 mg PO DAILY Qty: 180 1RF diclofenac sodium 1 % gel 4 g TOPICAL QID PRN (Reason: joint pain) 90 Days Qty: 300 1RF Rx Instructions: apply to affected area as needed hydroxychloroquine 200 mg tablet See Rx Instructions .ROUTE .COMPLEX Qty: 135 1RF Dose Instruction: TAKE 2 TABLETS EVERY OTHER DAY ALTERNATING WITH 1 TABLET EVERY OTHER DAY Rx Instructions: TAKE 2 TABLETS EVERY OTHER DAY ALTERNATING WITH 1 TABLET EVERY OTHER DAY chlorpheniramine maleate [Aller-Chlor] 4 mg tablet 4 mg PO .HS Rx Instructions: do not exceed 2 doses per 24 hrs pantoprazole 40 mg tablet,delayed release (DR/EC) 40 mg PO BID Qty: 90 1RF bisoprolol fumarate 5 mg tablet 2.5 mg PO DAILY Glucosamine Complex-MSM Capsule 1 cap PO TID turmeric root extract 500 mg capsule 1,500 mg PO DAILY valsartan 160 mg tablet 160 mg PO BID Qty: 180 3RF atorvastatin 40 mg tablet 40 mg PO DAILY Qty: 90 3RF cetirizine [Zyrtec] 10 mg Tablet 10 mg PO DAILY PRN (Reason: Allergy Symptoms) Discharge Orders: Discharge ED (Routine); Ordered 02/25/23 Ordered By: Tremayne Lucio Referrals: Liborio Iyer DO [Primary Care Provider] - 1 week Patient Instructions: Arthralgia (ED) Activity Restrictions/Additional Instructions: Follow-up with primary care physician in the next 1 week. Or if symptoms or pain becomes unbearable please return to the ER for further evaluation and treatment. Coding Level of Care Code ED Physical Scientist for Dudley Agarwal
--- NOTE | 2023-02-25 12:54 | XRR_ITS ---
PROCEDURE INFORMATION: Exam: XR Right Foot Exam date and time: 02/25/2023 1:23 PM Age: 77 years old Clinical indication: Pain; Foot; Right; Additional info: Fall pain TECHNIQUE: Imaging protocol: Radiologic exam of the right foot. Views: 3 or more views. COMPARISON: No relevant prior studies available. FINDINGS: Bones/joints: Extensive hardware in the hind and midfoot. Multi-articular primary osteoarthritic changes including joint space narrowing, subchondral cystic/sclerotic changes, and marginal osteophyte formations. There is remote osseous fusion across the 2nd digit proximal interphalangeal joint. Pes planus. Small calcaneal spur. Soft tissues: There is edema in the soft tissues most prominent dorsal to the midfoot and forefoot. XR/XR foot RT min 3V* [id number] IMPRESSION: 1. There is edema in the soft tissues most prominent dorsal to the midfoot and forefoot. 2. Extensive hardware in the hind and midfoot. 3. Multi-articular primary osteoarthritic changes as described above. 4. There is remote osseous fusion across the 2nd digit proximal interphalangeal joint. 5. Pes planus.
[2023-02-25 14:24] VITALS: BP 126/84; PULSE 65; O2SAT 95
== END 2023-02-25 14:31 | disposition home or self-care (01) ==
PROVIDERS: Emergency Provider Emergency Medicine; PCP Internal Medicine
DX: M79.671 Pain in right foot (principal); I12.9 Hypertensive chronic kidney disease with stage 1 through stage 4 chronic kidney disease, or unspecified chronic kidney disease; N18.9 Chronic kidney disease, unspecified; E78.5 Hyperlipidemia, unspecified
CPT/HCPCS: 73630; 99283

== ENCOUNTER → 2023-03-12 14:41 | Outpatient (BNVA) | payer MEDICARE, OTHER, SELFPAY | PROVIDERS: PCP Internal Medicine; Visit Provider Internal Medicine Cardiovascular Disease | DX: R06.02 Shortness of breath (principal); I42.8 Other cardiomyopathies; E78.5 Hyperlipidemia, unspecified; I10 Essential (primary) hypertension; G47.30 Sleep apnea, unspecified; E66.01 Morbid (severe) obesity due to excess calories; Z68.42 Body mass index [BMI] 45.0-49.9, adult; D47.2 Monoclonal gammopathy | CPT/HCPCS: 99214 ==

== ENCOUNTER → 2023-03-19 13:24 | Outpatient (BNVA) | payer MEDICARE, OTHER, SELFPAY | PROVIDERS: PCP Internal Medicine; Visit Provider Internal Medicine Rheumatology | DX: Z79.899 Other long term (current) drug therapy (principal); M15.4 Erosive (osteo)arthritis; E79.0 Hyperuricemia without signs of inflammatory arthritis and tophaceous disease; H15.109 Unspecified episcleritis, unspecified eye; N18.30 Chronic kidney disease, stage 3 unspecified; M72.2 Plantar fascial fibromatosis; Z98.1 Arthrodesis status; Z96.651 Presence of right artificial knee joint; Z96.611 Presence of right artificial shoulder joint; Z96.612 Presence of left artificial shoulder joint; M47.26 Other spondylosis with radiculopathy, lumbar region; M48.061 Spinal stenosis, lumbar region without neurogenic claudication; D47.2 Monoclonal gammopathy; M45.6 Ankylosing spondylitis lumbar region | CPT/HCPCS: 36415; 80076; 83520; 86200; 86431; 86812; 99214 ==

== ENCOUNTER → 2023-05-18 11:01 | Outpatient (BNVA) | payer MEDICARE, OTHER, SELFPAY | PROVIDERS: PCP Internal Medicine; Visit Provider Internal Medicine Cardiovascular Disease | DX: R07.9 Chest pain, unspecified (principal); R00.1 Bradycardia, unspecified; I42.8 Other cardiomyopathies; E78.5 Hyperlipidemia, unspecified; I10 Essential (primary) hypertension; G47.30 Sleep apnea, unspecified; E66.01 Morbid (severe) obesity due to excess calories; Z68.42 Body mass index [BMI] 45.0-49.9, adult; D47.2 Monoclonal gammopathy; I45.0 Right fascicular block; R94.31 Abnormal electrocardiogram [ECG] [EKG] | CPT/HCPCS: 93005 ==

== ENCOUNTER → 2023-05-22 12:42 | Outpatient (BNVA) | payer MEDICARE, OTHER, SELFPAY | PROVIDERS: PCP Internal Medicine; Visit Provider Dermatology | DX: L21.8 Other seborrheic dermatitis (principal); D48.5 Neoplasm of uncertain behavior of skin; L82.1 Other seborrheic keratosis; D22.61 Melanocytic nevi of right upper limb, including shoulder; D22.5 Melanocytic nevi of trunk | CPT/HCPCS: 11102; 99204 ==

== ENCOUNTER 2023-05-28 07:12 | Outpatient (CLI) | payer MEDICARE, OTHER, SELFPAY ==
--- NOTE | 2023-05-28 | ECG_ITS ---
[facility] Test Date: 2023-05-28 Pat Name: Maryjo Lynn Department: Room: Gender: Female Outside Sales: Zandra Gracia : 1945 Requested By: Carolina Bowen Order Number: [id number] Tyler MD: Carolina Bowen M.D. Interpretive Statements NAME OF STUDY: LEXISCAN SESTAMIBI STRESS TEST INDICATION: Shortness of Breath on exertion PROCEDURE: At the baseline, the blood pressure was 132/76 mmHg with a heart rate of 57 beats per min. The electrocardiogram showed sinus bradycardia. Left bundle branch block. ??? The Lexiscan was infused over a period of 20 seconds. A total of 0.4 milligrams of Lexiscan was infused. The stress phase was continued for a total of 5 minutes. Heart rate at the end of the stress phase was 65 beats per min with a blood pressure of 125/76 mmHg. The EKG at the peak infusion revealed no significant ST-T wave changes. ??? Sestamibi was injected 20 seconds after the Lexiscan infusion. ??? Blood pressure at the end of the recovery phase was 123 over 78 mm Hg with a heart rate of 63 beats per minute. ??? CONCLUSION: 1. Nondiagnostic EKG changes with the LexiScan infusion given baseline left bundle branch block. 2. No LexiScan induced chest pain or cardiac arrhythmia. 3. Normal blood pressure and heart rate response. 4. Sestamibi/sestamibi perfusion scan pending; see separate report. Electronically Signed On 05-29-2023 17:09:14 CDT by Carolina Bowen M.D. [email or web address]
[2023-05-28 07:50] VITALS: BMI 44.6
--- NOTE | 2023-05-28 07:55 | NMCV_ITS ---
NM dora perf SPECT r/s* [id number] Maryjo Lynn Age: 77 Gender: F : 1945 Exam Date: 05/28/2023 07:55 Ordering Phys: Carolina Bowen MD ([email or web address]) Technologist: LUISITO Downs Exam Location: [facility] Indications: SHORTNESS OF BREATH STRESS TEST Please see separate stress test report in [facility] for full findings IMAGE PROTOCOL Rest/Stress 1 Lexiscan Day Radiopharmaceutical Dose (mCi) Administration Site Administered by Rest: Tc-99m 10.2 IV Charles Walker, SUSTAINABLE LANDSCAPE ARCHITECT Sestamibi Stress:Tc-99m 27.9 IV Charles Walker, SUSTAINABLE LANDSCAPE ARCHITECT Sestamibi Rest: 28-May-2023 60 Discovery 630 Stress: 28-May-2023 30 Discovery 630 0.4mg Lexiscan. Images obtained in supine and prone position. SPECT RESULTS Technical Quality: Excellent Raw Data Analysis: Normal Image Corrections: No attenuation or motion correction applied Summed Stress Score: 4 Summed Rest Score: 15 Summed Difference Score: 1 PERFUSION FINDINGS Medium sized perfusion abnormality of moderate severity of mid to apical anterior, mid anteroseptal, apical septal, apical inferior basal to mid anterolateral guaman on rest images with improved tracer uptake on stress images. FUNCTIONAL RESULTS (calculated via Gated SPECT) Stress Image LV EF (%): 27 Stress EDV (mL):241 TID: 1.06 Stress ESV (mL):175 FUNCTIONAL FINDINGS: The left ventricle is dilated. Transient Ischemia Dilatation of 1.1. The left ventricular ejection fraction is severely reduced with a value of 27%. There is global hypokinesis. Markedly incraesed end diastolic and end systolic volumes. IMPRESSIONS 1. Medium sized perfusion abnormality of moderate severity of mid to apical anterior, mid anteroseptal, apical septal, apical inferior basal to mid anterolateral guaman with improved tracer uptake in stress images. 2. This may represent attenuation artifact. 3. The left ventricular ejection fraction is severely reduced with a value of 27% with global hypokinesis. 4. EKG portion of the study will be reported separately. 5. No significant coronary ischemia based on the study Carolina Bowen MD (Electronically Signed) Final Date: 29 May 2023 17:56 S
[2023-05-28] MEDS: regadenoson 0.4 Mg/5 ml Syringe IVP (10:11)
[2023-05-28 10:22] VITALS: BP 123/78; PULSE 64
== END 2023-05-28 07:13 | disposition home or self-care (01) ==
PROVIDERS: PCP Internal Medicine; Visit Provider Internal Medicine Cardiovascular Disease
DX: R06.02 Shortness of breath (principal)
CPT/HCPCS: 36415; 78452; 93017; 96374; 99214; A9500; J2785

== ENCOUNTER → 2023-06-12 07:57 | Outpatient (BNVA) | payer MEDICARE, OTHER, SELFPAY | PROVIDERS: PCP Internal Medicine; Visit Provider Dermatology | DX: C44.311 Basal cell carcinoma of skin of nose (principal) | CPT/HCPCS: 13152; 17311 ==

== ENCOUNTER → 2023-06-18 14:30 | Outpatient (BNVA) | payer MEDICARE, OTHER, SELFPAY | PROVIDERS: PCP Internal Medicine; Visit Provider Internal Medicine Rheumatology | DX: M15.4 Erosive (osteo)arthritis (principal); Z79.899 Other long term (current) drug therapy; E79.0 Hyperuricemia without signs of inflammatory arthritis and tophaceous disease; H15.109 Unspecified episcleritis, unspecified eye | CPT/HCPCS: 99214 ==

== ENCOUNTER 2023-07-27 10:51 | Outpatient (CLI) | payer MEDICARE, OTHER, SELFPAY ==
[2023-07-28 12:25] LABS: CREATININE, 24 HOUR URINE 0.87 g/24 h (0.50-2.15); PROTEIN, TOTAL, 24 HR UR 76 mg/24 h (<150); Protein/Creatinine Ratio 0.087 (<0.150); Protein/Creatinine Ratio 87 mg/g creat (<150)
[2023-08-01 12:50] LABS: ALBUMIN 0 %; ALPHA-1-GLOBULINS 0 %; ALPHA-2-GLOBULINS 0 %; BETA GLOBULINS 0 %; GAMMA GLOBULINS 0 %
== END 2023-07-27 10:52 | disposition home or self-care (01) ==
LOC: LAB 10:51
PROVIDERS: PCP Internal Medicine; Visit Provider Internal Medicine Medical Oncology
DX: D47.2 Monoclonal gammopathy (principal)
CPT/HCPCS: 84156; 84166

== ENCOUNTER 2023-08-01 14:34 | Oncology outpatient (recurring) (ONCR) | payer MEDICARE, OTHER, SELFPAY ==
[2023-07-25 12:09] LABS: Basophils % 0.3 %; Eosinophils # 0.2 10^3/uL (0.0-0.8); Eosinophils % 3.3 %; Hematocrit 32.7 % (36-47); Lymphocytes # 1.1 10^3/uL (0.8-4.8); Lymphocytes % 17.1 %; Mean Corpuscular HGB Conc 31.8 g/dL (30-55); Mean Corpuscular Hemoglobin 35.4 pg (27-33); Mean Corpuscular Volume 111.2 fl (85-98); Mean Platelet Volume 9.4 fL (7.4-10.4); Monocytes # 0.7 10^3/uL (0.2-0.9); Monocytes % 11.9 %; Neutrophils # 4.13 10^3/uL (1.8-7.7); Neutrophils % 67.2 %; Nucleated Red Blood Cells % 0 %; Platelet Count 248 10^3/cmm (157-399); Red Blood Count 2.94 10^6/uL (3.85-5.65); Red Cell Distribution Width 13.8 % (12.1-15.1); White Blood Count 6.14 10^3/uL (3.29-11.43)
[2023-07-25 12:32] LABS: Alanine Aminotransferase 13 U/L (0-33); Albumin Level 4.3 g/dL (3.5-5.2); Alkaline Phosphatase 79 U/L (35-105); Anion Gap 14.6 (5-19); Aspartate Amino Transferase 20 U/L (0-32); Blood Urea Nitrogen 52 mg/dL (8-23); Calcium 9.4 mg/dL (8.5-10.5); Carbon Dioxide 28 mmol/L (22-29); Chloride 106 mmol/L (98-107); Globulin 2.3 g/dL (1.3-4.6); Glucose 102 mg/dL (65-115); Osmolality Calculated 312 mOsm/kg (285-295); Potassium 4.6 mmol/L (3.5-5.1); Sodium 144 mmol/L (136-145); Total Bilirubin 0.2 mg/dL (0.15-1.2); Total Protein 6.6 g/dL (6.6-8.7)
[2023-07-25 12:53] LABS: Immunoglobulin IGA 92 mg/dL (70-400); Immunoglobulin IGG 451 mg/dL (700-1600); Immunoglobulin IGM 35 mg/dL (40-230)
[2023-07-26 08:15] LABS: PROTEIN, TOTAL 6.4 g/dL (6.1-8.1)
[2023-07-26 13:30] LABS: KAPPA LIGHT CHAIN, FREE, SERUM 24.3 mg/L (3.3-19.4); KAPPA/LAMBDA LIGHT CHAINS FREE 0.03 (0.26-1.65); LAMBDA LIGHT CHAIN, FREE, SERU 878.9 mg/L (5.7-26.3)
[2023-07-26 15:59] LABS: ABNORMAL PROTEIN BAND 1 0.2 g/dL (NONE DETECTED); ALBUMIN 4.1 g/dL (3.8-4.8); ALPHA 1 GLOBULIN 0.3 g/dL (0.2-0.3); ALPHA 2 GLOBULIN 0.8 g/dL (0.5-0.9); BETA 1 GLOBULIN 0.4 g/dL (0.4-0.6); BETA 2 GLOBULIN 0.3 g/dL (0.2-0.5); GAMMA GLOBULIN 0.4 g/dL (0.8-1.7)
== END 2023-08-05 23:59 | disposition home or self-care (01) ==
PROVIDERS: PCP Internal Medicine; Visit Provider Internal Medicine Medical Oncology
DX: D47.2 Monoclonal gammopathy (principal); R77.9 Abnormality of plasma protein, unspecified; R74.8 Abnormal levels of other serum enzymes; Z79.899 Other long term (current) drug therapy
CPT/HCPCS: 36415; 80053; 82784; 83883; 84155; 84165; 85025; 99214

== ENCOUNTER → 2023-08-23 12:41 | Outpatient (BNVA) | payer MEDICARE, OTHER, SELFPAY | PROVIDERS: PCP Internal Medicine; Visit Provider Dermatology | DX: L57.0 Actinic keratosis (principal); Z85.828 Personal history of other malignant neoplasm of skin; L73.8 Other specified follicular disorders | CPT/HCPCS: 17000; 99213 ==

== ENCOUNTER → 2023-09-11 13:51 | Outpatient (BNVA) | payer MEDICARE, OTHER, SELFPAY | PROVIDERS: PCP Internal Medicine; Referring Provider Internal Medicine Cardiovascular Disease; Visit Provider Internal Medicine Cardiovascular Disease | DX: I42.8 Other cardiomyopathies (principal); I12.9 Hypertensive chronic kidney disease with stage 1 through stage 4 chronic kidney disease, or unspecified chronic kidney disease; N18.30 Chronic kidney disease, stage 3 unspecified; E78.5 Hyperlipidemia, unspecified; R06.02 Shortness of breath; E66.01 Morbid (severe) obesity due to excess calories; Z68.42 Body mass index [BMI] 45.0-49.9, adult; D47.2 Monoclonal gammopathy; M15.4 Erosive (osteo)arthritis | CPT/HCPCS: 99214 ==

== ENCOUNTER → 2023-09-18 11:44 | Outpatient (BNVA) | payer MEDICARE, OTHER, SELFPAY | PROVIDERS: PCP Internal Medicine; Referring Provider Internal Medicine; Visit Provider Specialist | DX: G62.89 Other specified polyneuropathies (principal); M48.02 Spinal stenosis, cervical region; G99.2 Myelopathy in diseases classified elsewhere; R20.0 Anesthesia of skin | CPT/HCPCS: 95911 ==

== ENCOUNTER 2023-09-19 11:44 | Outpatient (CLI) | payer MEDICARE, OTHER, SELFPAY ==
--- NOTE | 2023-09-19 12:00 | USCV_ITS ---
Maryjo Lynn Age: 78 Gender: F : 1945 Exam Date: 09/19/2023 11:55 Ordering Phys: Chuck Harmon MD ([email or web address]) Technologist: Patrica Johnson Exam Location: [facility] [place] Indication: RECHECK EF BP: / HR: Rhythm: Sinus Technical Quality: Adequate MEASUREMENTS (Male / Female) Normal Values 2D ECHO LVOT Diameter 2.0 cm LV Ejection Fraction MOD 2C 4.9 % IVC Diameter 1.5 cm M-MODE LA Ao Ratio MM 1.5 AV Cusp Separation MM 1.4 cm DOPPLER AV Peak Velocity 5.0 cm/s AV Area Cont Eq vti 0.7 cm squared MV Peak Velocity 112.0 cm/s MV Area PHT 2.8 cm squared Mitral E to A Ratio 0.8 TV Peak Velocity 331.0 cm/s TR Peak Velocity 134.0 cm/s TR Peak Gradient 7.2 mmHg Right Atrial Pressure 3.0 mmHg Pulmonary Artery Systolic Pressu 10.2 mmHg PV Peak Velocity 96.0 cm/s FINDINGS Left Ventricle Mildly increased left ventricular cavity size. Normal left ventricular wall thickness. Moderately decreased left ventricular systolic function. Left ventricular ejection fraction is estimated at 40 %. Grade I/IV diastolic dysfunction (abnormal relaxation filling pattern), normal to mildly elevated filling pressures. Global left ventricular hypokinesis. Right Ventricle Normal right ventricular size and systolic function. Normal right ventricular systolic pressure. Right Atrium The right atrium is normal in size. Left Atrium Mildly increased left atrial size. Mitral Valve Structurally normal mitral valve. Mild-moderate mitral valve regurgitation. Aortic Valve Moderate aortic valve calcification. There is aortic stenosis. The calculations are difficult to interpret. The mean gradient is about 12 mmHg however the equation calculated the aortic valve area to be less than 1 cm squared. This is likely not the case. The patient has at least mild aortic stenosis. No aortic insufficiency. Tricuspid Valve Structurally normal tricuspid valve. Trace tricuspid valve regurgitation. Pulmonic Valve Pulmonic valve not well visualized. Pericardium Normal pericardium without effusion. Aorta Normal ascending aorta dimension. IVC The inferior vena cava appears normal. CONCLUSIONS Mildly increased left ventricular cavity size. Normal left ventricular wall thickness. Moderately decreased left ventricular systolic function. Left ventricular ejection fraction is estimated at 40 %. Grade I/IV diastolic dysfunction (abnormal relaxation filling pattern), normal to mildly elevated filling pressures. Global left ventricular hypokinesis. Mildly increased left atrial size. Structurally normal mitral valve. Mild-moderate mitral valve regurgitation. Moderate aortic valve calcification. There is aortic stenosis. The calculations are difficult to interpret. The mean gradient is about 12 mmHg however the equation calculated the aortic valve area to be less than 1 cm squared. This is likely not the case. The patient has at least mild aortic stenosis. No aortic insufficiency. Previous study was done 01/11/2022. Ejection fraction is the same 40%. The hypokinesis is global. Aortic stenosis was not noted on the previous study. Dr. Chuck Harmon MD (Electronically Signed) Final Date: 20 September 2023 09:47 S
== END 2023-09-19 11:45 | disposition home or self-care (01) ==
LOC: RAD 11:46
PROVIDERS: PCP Internal Medicine; Visit Provider Internal Medicine Cardiovascular Disease
DX: I42.8 Other cardiomyopathies (principal); I08.0 Rheumatic disorders of both mitral and aortic valves
CPT/HCPCS: 93306

== ENCOUNTER 2023-09-20 13:42 | Oncology outpatient (recurring) (ONCR) | payer MEDICARE, OTHER, SELFPAY ==
[2023-09-20 14:16] LABS: Basophils % 0.5 %; Eosinophils # 0.1 10^3/uL (0.0-0.8); Eosinophils % 1.3 %; Hematocrit 34.3 % (36-47); Lymphocytes # 1.1 10^3/uL (0.8-4.8); Mean Corpuscular HGB Conc 31.5 g/dL (30-55); Mean Corpuscular Hemoglobin 34.7 pg (27-33); Mean Corpuscular Volume 110.3 fl (85-98); Mean Platelet Volume 9.7 fL (7.4-10.4); Monocytes # 0.5 10^3/uL (0.2-0.9); Monocytes % 5.4 %; Neutrophils % 79.6 %; Nucleated Red Blood Cells % 0 %; Platelet Count 257 10^3/cmm (157-399); Red Blood Count 3.11 10^6/uL (3.85-5.65); Red Cell Distribution Width 14.1 % (12.1-15.1); White Blood Count 8.41 10^3/uL (3.29-11.43)
[2023-09-20 14:36] LABS: Ferritin 69 ng/mL (15-150); Iron 91 ug/dL (37-145); Percent Saturation 28.4 % (20-50); Total Iron Binding Capacity 320 mcg/dl; Unsaturated Iron Binding 229 ug/dL (112-347)
== END 2023-10-04 23:59 | disposition home or self-care (01) ==
LOC: ONCMED 13:43
PROVIDERS: PCP Internal Medicine; Visit Provider Internal Medicine Medical Oncology
DX: D50.9 Iron deficiency anemia, unspecified (principal)
CPT/HCPCS: 36415; 82728; 83540; 83550; 85025

== ENCOUNTER → 2023-10-09 13:57 | Outpatient (BNVA) | payer MEDICARE, OTHER, SELFPAY | PROVIDERS: PCP Internal Medicine; Visit Provider Dermatology | DX: Z85.828 Personal history of other malignant neoplasm of skin (principal) | CPT/HCPCS: 99213 ==

== ENCOUNTER → 2023-10-31 11:20 | Outpatient (BNVA) | payer MEDICARE, OTHER, SELFPAY | PROVIDERS: PCP Internal Medicine; Referring Provider Internal Medicine; Visit Provider Specialist | DX: G56.03 Carpal tunnel syndrome, bilateral upper limbs; G62.9 Polyneuropathy, unspecified | CPT/HCPCS: 73130; 99204 ==

== ENCOUNTER → 2023-11-22 12:34 | Outpatient (BNVA) | payer MEDICARE, OTHER, SELFPAY | PROVIDERS: PCP Internal Medicine; Visit Provider Internal Medicine Cardiovascular Disease | DX: I42.8 Other cardiomyopathies (principal); E78.5 Hyperlipidemia, unspecified; R06.02 Shortness of breath; E66.01 Morbid (severe) obesity due to excess calories; Z68.42 Body mass index [BMI] 45.0-49.9, adult; D50.8 Other iron deficiency anemias; G47.30 Sleep apnea, unspecified; I12.9 Hypertensive chronic kidney disease with stage 1 through stage 4 chronic kidney disease, or unspecified chronic kidney disease; N18.30 Chronic kidney disease, stage 3 unspecified | CPT/HCPCS: 99213 ==

== ENCOUNTER → 2024-01-01 13:18 | Outpatient (BNVA) | payer MEDICARE, OTHER, SELFPAY | PROVIDERS: PCP Internal Medicine; Visit Provider Internal Medicine Rheumatology | DX: Z79.899 Other long term (current) drug therapy (principal); M15.4 Erosive (osteo)arthritis; E79.0 Hyperuricemia without signs of inflammatory arthritis and tophaceous disease; H15.109 Unspecified episcleritis, unspecified eye | CPT/HCPCS: 99214 ==

== ENCOUNTER 2024-05-22 12:50 | Outpatient (CLI) | payer MEDICARE, OTHER, SELFPAY ==
--- NOTE | 2024-05-22 12:56 | MR_ITS ---
WS: [id number] MRI CERVICAL SPINE NONCONTRAST TECHNIQUE: Sagittal T1, T2 and STIR imaging. Axial T2, gradient, and fiesta imaging. CLINICAL INFORMATION: NECK PAIN COMPARISON: CT myelogram 02/27/2020 and MRI October 2013 FINDINGS: Straightening of the normal cervical lordosis. Advanced spondylitic changes. Anterolisthesis C7 on T1 measuring 4 mm. Diffuse disc narrowing throughout the cervical spine worse at C4-C5 C5-C6 C6-C7 and C7-T1. Shallow disc protrusions in the upper thoracic spine. Multilevel central canal stenosis. Small amount of myelomalacia with suggestion of a tiny syrinx in the cervical cord at C4-C6 although diffi cult to further assess due to respiratory and motion artifact. Degenerative disc disease progressed s ej the MRI 2013. C2-C3: Moderate facet arthropathy with uncovertebral joint hypertrophy. Severe LEFT and moderate RIGH T bony foraminal narrowing. Spinal canal is patent. C3-C4: Disc osteophyte complex with endplate ridging. Moderate facet arthropathy. Mild central canal stenosis. Severe bilateral bony foraminal narrowing. C4-C5: Disc osteophyte complex with endplate ridging. Mild central canal stenosis. Moderate facet art hropathy. Moderate to severe LEFT and moderate RIGHT bony foraminal narrowing. C5-C6: Disc osteophyte complex with uncovertebral joint hypertrophy. Moderate to severe bilateral bon y foraminal narrowing. Moderate to advanced facet arthropathy. Mild central canal stenosis. C6-C7: Disc osteophyte complex with uncovertebral joint hypertrophy. Severe bilateral bony foraminal narrowing. Moderate facet arthropathy. C7-T1: Anterolisthesis C7 on T1 with moderate central canal stenosis. Severe LEFT and moderate RIGHT bony foraminal narrowing. Moderate facet arthropathy. Visualized brain stem structures: Normal. Prevertebral soft tissues: Normal. MR/MR cervical spin wo con* [id number] IMPRESSION: 1. Straightening of the normal cervical lordosis with advanced spondylitic talisha nges. Grade 1 anterolisthesis C7 on T1. 2. Diffuse disc base narrowing throughout the cervical spine worse at C3-C7. 3. Mild to moderate multilevel central canal stenosis worse at C4-C5 C5-C6 C6- C7 and C7-T1. 4. Multilevel moderate to severe bony foraminal narrowing worse at bilateral C 2-3, bilateral C3-4, LEFT C4-C5, bilateral C5-C6, bilateral C6-C7 and LEFT C7-T 1. 5. Tiny syrinx and/or myelomalacia in the cord at C3-C6 difficult to further e valuate due to respiratory motion artifact.
--- NOTE | 2024-05-22 13:18 | MR_ITS ---
WS: [id number] MRI LUMBAR SPINE NONCONTRAST TECHNIQUE: Sagittal T1, T2 and STIR imaging. Axial T1 and T2 imaging. CLINICAL INFORMATION: WEAKNESS OF LOWER RIGHT LIMB COMPARISON: MRI and CT myelogram 2019 FINDINGS: Mild lumbar curve. No acute compression fractures. Pedicle screw fixation L4-S1 with interbody fusion grafts. Complete loss of the disc space at L1-2 with endplate degenerative changes. Slight retrolist hesis L1 on L2. Postoperative changes are new since the prior studies. L1-L2: Slight retrolisthesis. Advanced disc space narrowing. Mild disc bulge with osteophytic ridging . Narrowing of the RIGHT subarticular recess. Mild RIGHT foraminal narrowing. Moderate facet arthropa thy. L2-L3: Mild annular bulging. Narrowing of the RIGHT greater than LEFT subarticular recess. Moderate f acet arthropathy. Mild central canal stenosis. Mild RIGHT foraminal narrowing. Central canal stenosis has progressed. L3-L4: Mild disc bulging with moderate central canal stenosis. Images degraded at this level due to s usceptibility artifact from hardware. Narrowing of the subarticular recess bilaterally RIGHT greater than LEFT. Bilateral foraminal protrusions impinge the exiting L3 nerve roots bilaterally with modera te to severe foraminal narrowing. Disc desiccation at this level has progressed compared to the prior studies. L4-L5: Postoperative changes. Spinal canal and foramen appear patent. Laminectomy defects. L5-S1: Postoperative changes. Spinal canal is patent. Foramen appear patent. Visualized pelvic bony structures: Normal. Paravertebral soft tissues: Normal. MR/MR lumbar spine wo con* [id number] IMPRESSION: 1. Postoperative changes are new since 2019. 2. Progressed disc desiccation and disc bulging at L3-4 with moderate central canal stenosis and impingement on the subarticular recess RIGHT greater than LE FT. In addition, foraminal protrusions at this level with moderate to severe bi lateral foraminal narrowing. Images at this level degraded due to hardware becca fact. 3. Spinal canal and foramen are patent at the fusion levels L4-L5 and L5-S1. 4. Narrowing of the RIGHT subarticular recess L1-2 with advanced disc desiccat ion. Mild RIGHT L1-2 foraminal narrowing. 5. Mild central canal stenosis L2-3 due to disc bulging with facet arthropathy and ligamentum flavum hypertrophy. Mild RIGHT foraminal narrowing with narrowi ng of the RIGHT subarticular recess. This appears progressed compared to previo us
== END 2024-05-22 12:51 | disposition home or self-care (01) ==
LOC: RAD 12:51
PROVIDERS: PCP Internal Medicine; Visit Provider Internal Medicine
DX: M47.896 Other spondylosis, lumbar region (principal); M51.360 Other intervertebral disc degeneration, lumbar region with discogenic back pain only; M99.63 Osseous and subluxation stenosis of intervertebral foramina of lumbar region; M25.78 Osteophyte, vertebrae; M43.26 Fusion of spine, lumbar region; M47.812 Spondylosis without myelopathy or radiculopathy, cervical region; M43.12 Spondylolisthesis, cervical region; M99.61 Osseous and subluxation stenosis of intervertebral foramina of cervical region; M50.30 Other cervical disc degeneration, unspecified cervical region; M50.321 Other cervical disc degeneration at C4-C5 level; M50.322 Other cervical disc degeneration at C5-C6 level; M50.323 Other cervical disc degeneration at C6-C7 level; M62.81 Muscle weakness (generalized); G62.89 Other specified polyneuropathies; M48.02 Spinal stenosis, cervical region; M50.020 Cervical disc disorder with myelopathy, mid-cervical region, unspecified level; G56.03 Carpal tunnel syndrome, bilateral upper limbs; G56.22 Lesion of ulnar nerve, left upper limb
CPT/HCPCS: 72141; 72148; 95861; 95869; 99202

== ENCOUNTER → 2024-05-23 12:12 | Outpatient (BNVA) | payer MEDICARE, OTHER, SELFPAY | PROVIDERS: PCP Internal Medicine; Visit Provider Internal Medicine Cardiovascular Disease | DX: N18.30 Chronic kidney disease, stage 3 unspecified (principal) | CPT/HCPCS: 36415; 80048 ==

== ENCOUNTER 2024-06-10 11:48 | Outpatient (CLI) | payer MEDICARE, OTHER, SELFPAY ==
[2024-06-10 12:35] LABS: Basophils # 0.1 10^3/uL (0.0-0.1); Basophils % 0.5 %; Eosinophils # 0.3 10^3/uL (0.0-0.8); Eosinophils % 2.6 %; Hematocrit 33.5 % (36-47); Lymphocytes # 1.6 10^3/uL (0.8-4.8); Lymphocytes % 14.8 %; Mean Corpuscular HGB Conc 31.3 g/dL (30-55); Mean Corpuscular Hemoglobin 34.7 pg (27-33); Mean Corpuscular Volume 110.6 fl (85-98); Mean Platelet Volume 9.1 fL (7.4-10.4); Monocytes # 0.8 10^3/uL (0.2-0.9); Monocytes % 7.1 %; Neutrophils # 7.86 10^3/uL (1.8-7.7); Neutrophils % 74.6 %; Nucleated Red Blood Cells % 0 %; Platelet Count 273 10^3/cmm (157-399); Red Blood Count 3.03 10^6/uL (3.85-5.65); Red Cell Distribution Width 14.8 % (12.1-15.1); White Blood Count 10.53 10^3/uL (3.29-11.43)
[2024-06-10 13:10] LABS: Alanine Aminotransferase 9 U/L (0-33); Albumin Level 4.2 g/dL (3.5-5.2); Alkaline Phosphatase 97 U/L (35-105); Anion Gap 16.3 (5-19); Aspartate Amino Transferase 21 U/L (0-32); Blood Urea Nitrogen 41 mg/dL (8-23); C Reactive Protein 4.8 mg/L (0.0-4.9); Calcium 9.2 mg/dL (8.5-10.5); Carbon Dioxide 27 mmol/L (22-29); Chloride 105 mmol/L (98-107); Globulin 1.6 g/dL (1.3-4.6); Glucose 107 mg/dL (65-115); Osmolality Calculated 307 mOsm/kg (285-295); Potassium 5.3 mmol/L (3.5-5.1); Sodium 143 mmol/L (136-145); Total Bilirubin 0.2 mg/dL (0.15-1.2); Total Protein 5.8 g/dL (6.6-8.7); Uric Acid 4.5 mg/dL (2.4-5.7)
== END 2024-06-10 11:49 | disposition home or self-care (01) ==
LOC: LAB 11:49
PROVIDERS: Absent Provider Internal Medicine Rheumatology; PCP Internal Medicine; Visit Provider Internal Medicine Cardiovascular Disease
DX: N18.30 Chronic kidney disease, stage 3 unspecified; Z79.899 Other long term (current) drug therapy; I42.8 Other cardiomyopathies; I10 Essential (primary) hypertension
CPT/HCPCS: 36415; 80048; 80076; 84550; 85025; 86140

== ENCOUNTER 2024-06-23 12:50 | Outpatient (CLI) | payer MEDICARE, OTHER, SELFPAY ==
[2024-06-23 13:30] LABS: Anion Gap 15.8 (5-19); Blood Urea Nitrogen 43 mg/dL (8-23); Calcium 9.4 mg/dL (8.5-10.5); Carbon Dioxide 26 mmol/L (22-29); Chloride 106 mmol/L (98-107); Glucose 96 mg/dL (65-115); Osmolality Calculated 307 mOsm/kg (285-295); Potassium 4.8 mmol/L (3.5-5.1); Sodium 143 mmol/L (136-145)
== END 2024-06-23 12:51 | disposition home or self-care (01) ==
PROVIDERS: PCP Internal Medicine; Visit Provider Internal Medicine Cardiovascular Disease
DX: N18.30 Chronic kidney disease, stage 3 unspecified (principal); I10 Essential (primary) hypertension
CPT/HCPCS: 80048

== ENCOUNTER → 2024-06-24 14:06 | Outpatient (BNVA) | payer MEDICARE, OTHER, SELFPAY | PROVIDERS: PCP Family Medicine; Visit Provider Orthopaedic Surgery | DX: M54.2 Cervicalgia (principal); M54.9 Dorsalgia, unspecified | CPT/HCPCS: 72050; 72110; 99214 ==

== ENCOUNTER → 2024-07-01 13:00 | Outpatient (BNVA) | payer MEDICARE, OTHER, SELFPAY | PROVIDERS: PCP Family Medicine; Visit Provider Internal Medicine Rheumatology | DX: M15.4 Erosive (osteo)arthritis (principal); Z79.899 Other long term (current) drug therapy; E79.0 Hyperuricemia without signs of inflammatory arthritis and tophaceous disease; H15.109 Unspecified episcleritis, unspecified eye | CPT/HCPCS: 99214 ==

== ENCOUNTER → 2024-07-10 09:38 | Outpatient (BNVA) | payer MEDICARE, SELFPAY | PROVIDERS: PCP Family Medicine; Visit Provider Nurse Practitioner Family | DX: L21.8 Other seborrheic dermatitis (principal); D22.61 Melanocytic nevi of right upper limb, including shoulder; Z08 Encounter for follow-up examination after completed treatment for malignant neoplasm; Z85.828 Personal history of other malignant neoplasm of skin; L72.0 Epidermal cyst | CPT/HCPCS: 10060; 99214 ==

== ENCOUNTER → 2024-08-13 15:40 | Outpatient (BNVA) | payer MEDICARE, OTHER, SELFPAY | PROVIDERS: PCP Family Medicine; Visit Provider Anesthesiology Pain Medicine | DX: G56.22 Lesion of ulnar nerve, left upper limb (principal); G56.03 Carpal tunnel syndrome, bilateral upper limbs; M48.062 Spinal stenosis, lumbar region with neurogenic claudication | CPT/HCPCS: 99214 ==

== ENCOUNTER → 2024-08-19 13:27 | Outpatient (BNVA) | payer MEDICARE, OTHER, SELFPAY | PROVIDERS: PCP Family Medicine; Visit Provider Anesthesiology Pain Medicine | DX: M53.3 Sacrococcygeal disorders, not elsewhere classified (principal); M48.062 Spinal stenosis, lumbar region with neurogenic claudication | CPT/HCPCS: 20610; 77002; J1010; J3490 ==

== ENCOUNTER → 2024-08-25 10:40 | Outpatient (BNVA) | payer MEDICARE, OTHER, SELFPAY | PROVIDERS: PCP Family Medicine; Visit Provider Nurse Practitioner Family | DX: I12.9 Hypertensive chronic kidney disease with stage 1 through stage 4 chronic kidney disease, or unspecified chronic kidney disease (principal); N18.9 Chronic kidney disease, unspecified; I42.8 Other cardiomyopathies | CPT/HCPCS: 99214 ==

== ENCOUNTER → 2024-09-08 14:08 | Outpatient (BNVA) | payer MEDICARE, OTHER, SELFPAY | PROVIDERS: PCP Family Medicine; Visit Provider Nurse Practitioner Family | DX: M48.062 Spinal stenosis, lumbar region with neurogenic claudication (principal) | CPT/HCPCS: 99213 ==

== ENCOUNTER → 2024-09-10 12:47 | Outpatient (BNVA) | payer MEDICARE, OTHER, SELFPAY | PROVIDERS: PCP Family Medicine; Visit Provider Dermatology | DX: D48.5 Neoplasm of uncertain behavior of skin (principal); R23.8 Other skin changes; R20.8 Other disturbances of skin sensation; L53.8 Other specified erythematous conditions | CPT/HCPCS: 11402; 13121 ==

== ENCOUNTER 2024-09-11 09:41 | Outpatient (CLI) | payer MEDICARE, OTHER, SELFPAY ==
[2024-09-11 10:25] LABS: Anion Gap 14.8 (5-19); Blood Urea Nitrogen 32 mg/dL (8-23); Calcium 9.8 mg/dL (8.5-10.5); Carbon Dioxide 26 mmol/L (22-29); Chloride 105 mmol/L (98-107); Glucose 107 mg/dL (65-115); Osmolality Calculated 299 mOsm/kg (285-295); Potassium 4.8 mmol/L (3.5-5.1); Sodium 141 mmol/L (136-145)
== END 2024-09-11 09:42 | disposition home or self-care (01) ==
LOC: LAB 09:43
PROVIDERS: PCP Family Medicine; Visit Provider Nurse Practitioner Family
DX: N18.30 Chronic kidney disease, stage 3 unspecified (principal)
CPT/HCPCS: 36415; 80048

== ENCOUNTER → 2024-09-16 10:32 | Outpatient (BNVA) | payer MEDICARE, OTHER, SELFPAY | PROVIDERS: PCP Family Medicine; Visit Provider Student in an Organized Health Care Education/Training Program | DX: M16.0 Bilateral primary osteoarthritis of hip (principal); M53.3 Sacrococcygeal disorders, not elsewhere classified; M48.062 Spinal stenosis, lumbar region with neurogenic claudication; G56.03 Carpal tunnel syndrome, bilateral upper limbs; M19.041 Primary osteoarthritis, right hand; M19.031 Primary osteoarthritis, right wrist | CPT/HCPCS: 20610; 73130; 77002; J1010; J3490 ==

== ENCOUNTER 2024-09-17 09:16 | Outpatient (CLI) | payer MEDICARE, OTHER, SELFPAY ==
--- NOTE | 2024-09-17 09:15 | USCV_ITS ---
Maryjo Lynn Age: 79 Gender: F : 1945 Exam Date: 09/17/2024 09:58 Ordering Phys: Lorenza Zambrano NP Technologist: MIRIAM Exam Location: [facility] [place] Indication: as BP: 120 / 70 HR: 82 Rhythm: Sinus Technical Quality: Adequate MEASUREMENTS (Male / Female) Normal Values 2D ECHO LV Diastolic Diameter PLAX 5.1 cm 4.2 - 5.9 / 3.9 - 5.3 cm IVS Diastolic Thickness 1.7 cm 0.6 - 1.0 / 0.6 - 0.9 cm IVS Systolic Thickness 2.0 cm LVPW Diastolic Thickness 1.9 cm 0.6 - 1.0 / 0.6 - 0.9 cm LVPW Systolic Thickness 2.6 cm LVOT Diameter 2.0 cm LV Ejection Fraction 2D Teich 51.7 % LV Ejection Fraction MOD 4C 46.4 % LV Ejection Fraction MOD 2C 55.1 % LV Ejection Fraction 2C AL 55.2 % LA Diameter 3.8 cm RA Systolic Volume 4C AL 43.0 ml RA Systolic Volume 4C MOD 40.7 ml LA Sys Volume AL 76.4 cm cubed LA Sys Volume Index AL 33.2 cm cubed/m squared Aorta at Sinotubular Diameter 2.9 cm IVC Diameter 1.9 cm DOPPLER AV Peak Velocity 242.8 cm/s LVOT Peak Velocity 125.0 cm/s AV Area Cont Eq vti 1.6 cm squared AV Area Cont Eq pk 1.7 cm squared MV Peak Velocity 127.0 cm/s MV Area PHT 4.6 cm squared Mitral E to A Ratio 1.0 TV Peak Velocity 183.0 cm/s TR Peak Velocity 230.0 cm/s TR Peak Gradient 21.2 mmHg TV Peak E Velocity 103.0 cm/s PV Peak Velocity 153.0 cm/s FINDINGS Left Ventricle Diffuse hypokinesis of the left ventricle. LV ejection fraction around 30 to 35% (visual)mild left ventricular hypertrophy. Right Ventricle The right ventricle is normal in size and function. Right Atrium The right atrium is normal in size. Left Atrium Mildly increased left atrial size. Mitral Valve Thickened mitral valve. Mild-moderate mitral valve regurgitation. Aortic Valve Mild aortic valve stenosis, mean gradient 12.3 mmHg, MAGALYS 1.6 cm squared. Tricuspid Valve Mild tricuspid valve regurgitation. Estimated pulmonary artery peak systolic pressure within normal limits Pulmonic Valve Pulmonic valve not well visualized. Pericardium Normal pericardium without effusion. Aorta Mildly dilated aortic arch. IVC The inferior vena cava appears normal. CONCLUSIONS Diffuse hypokinesis of the left ventricle. LV ejection fraction around 30 to 35% (visual)mild left ventricular hypertrophy. Mild aortic valve stenosis, mean gradient 12.3 mmHg, MAGALYS 1.6 cm squared. Thickened mitral valve. Mild-moderate mitral valve regurgitation. Mildly increased left atrial size. Mild tricuspid valve regurgitation. Estimated pulmonary artery peak systolic pressure within normal limits. Technically difficult study because of poor ultrasonic window-could not visualize endocardium well Compared to the study from 09/19/2023, the LV ejection fraction seems to have decreased.. Recommend contrast echocardiogram to better evaluate the ejection fraction Dr Rachel Kumar MD FAC (Electronically Signed) Final Date: 19 September 2024 14:00 S
== END 2024-09-17 09:17 | disposition home or self-care (01) ==
LOC: RAD 09:16
PROVIDERS: PCP Family Medicine; Visit Provider Nurse Practitioner Family
DX: I10 Essential (primary) hypertension (principal); R93.1 Abnormal findings on diagnostic imaging of heart and coronary circulation; I34.0 Nonrheumatic mitral (valve) insufficiency; I35.0 Nonrheumatic aortic (valve) stenosis; I07.1 Rheumatic tricuspid insufficiency; I77.819 Aortic ectasia, unspecified site
CPT/HCPCS: 93306

== ENCOUNTER 2024-10-03 10:50 | Outpatient (CLI) | payer MEDICARE, OTHER, SELFPAY ==
[2024-10-03 11:42] LABS: Anion Gap 14.5 (5-19); Blood Urea Nitrogen 42 mg/dL (8-23); Calcium 9.5 mg/dL (8.5-10.5); Carbon Dioxide 25 mmol/L (22-29); Chloride 105 mmol/L (98-107); Glucose 96 mg/dL (65-115); NT Pro B Type Natriuretic Pept 3857 pg/mL (0-450); Osmolality Calculated 300 mOsm/kg (285-295); Potassium 4.5 mmol/L (3.5-5.1); Sodium 140 mmol/L (136-145)
== END 2024-10-03 10:51 | disposition home or self-care (01) ==
LOC: LAB 10:52
PROVIDERS: PCP Family Medicine; Visit Provider Nurse Practitioner Family
DX: I42.8 Other cardiomyopathies (principal); I50.20 Unspecified systolic (congestive) heart failure
CPT/HCPCS: 36415; 80048; 83880

== ENCOUNTER 2024-10-20 12:42 | Outpatient (CLI) | payer MEDICARE, OTHER, SELFPAY | END 2024-10-20 12:43 | disposition home or self-care (01) | LOC: SLEEP 12:42 | PROVIDERS: PCP Family Medicine; Visit Provider Family Medicine | DX: G47.33 Obstructive sleep apnea (adult) (pediatric) (principal); G47.36 Sleep related hypoventilation in conditions classified elsewhere | CPT/HCPCS: G0399 ==

== ENCOUNTER 2024-10-23 09:08 | Day surgery (SDC) | payer MEDICARE, OTHER, SELFPAY ==
[2024-10-23] VITALS (8 sets, daily range): BP systolic 107–173; BP diastolic 69–94; PULSE 64–81; RESP 16–18; TEMP 36.1–36.7; O2SAT 93–98; BMI 46.5
[2024-10-23] MEDS: sodium chloride 0.9% 1,000 ML 30 ML IV (09:54)
[2024-10-23] MEDS: acetaminophen 1,000 MG/100 ML PIGGYBACK 400 MG IV (09:58)
[2024-10-23] MEDS: ketorolac 30 mg/mL INJ IVP (09:59)
--- NOTE | 2024-10-23 11:30 | ANES.PREANE2 ---
Pre-Anesthetic Assessment Height/Weight: Height 5 ft 1 in Weight 246 lb Temp Pulse Resp BP Pulse Ox O2 Del Method 98.1 F 81 17 172/69 98 Room Air 10/23/24 09:26 10/23/24 09:26 10/23/24 09:26 10/23/24 09:26 10/23/24 09:26 10/23/24 09:27 Preop Diagnosis: cubital tunnel syndrome Operation Date: 10/23/24 10:45 Proposed Procedures p Carpal Tunnel Release(Left) - Delvin Jackie, DO s Cubital Tunnel Release(Left) - Delvin Jackie, DO s Ulnar Nerve Transposition(Left) - Delvin Vernon, DO Was Beta Areli taken within 24 hours: N/A Was Clonidine taken within 24 hours: N/A Last intake: Intake Last Liquid Date 10/22/24 Last Liquid Time 23:58 Last Solid Date 10/12/24 Last Solid Time 08:00 Social No alcohol and No tobacco Exam alert, oriented x 3, clear to auscultation bilaterally and regular rate & rhythm Airway Submandibular: within normal limits Cervical ROM: within normal limits Mallampati: Class II Dentition: full Anesthetic Plan ASA status: 4 Anesthesia: MAC Other: No prior issues with anesthesia NPO since yesterday evening History of TRACEY, HPI 75. Uses CPAP nightly Hypertension on sacubitril?valsartan. Preop BP 172/69 Exertional shortness of breath noted. CAD. Recent echo showing EF 30 to 35%. Patient states that cardiology is considering a life vest Chronic CKD stage III Cervical disc disorder Labs from 10/03/2024 reviewed acceptable for procedure Plan for preop axillary nerve block with MAC anesthesia Medications/Allergies Home Medications ?Medication ?Instructions ?Recorded ?Confirmed ?Last Taken ?Type albuterol sulfate 90 mcg/actuation 2 puff inhalation QID PRN Wheezing 09/09/19 10/22/24 Unknown History aerosol inhaler (ProAir HFA) carbidopa ER 50 mg-levodopa 200 mg 1 tab PO BID 09/09/19 10/22/24 10/21/24 History tablet,extended release cholecalciferol (vitamin D3) 25 1,000 unit PO DAILY 09/09/19 10/22/24 10/21/24 History mcg (1,000 unit) tablet montelukast 10 mg tablet 10 mg PO BEDTIME 09/09/19 10/22/24 10/21/24 History (Singulair) gabapentin 300 mg capsule 300 mg PO BEDTIME 11/29/20 10/22/24 10/21/24 History cetirizine 10 mg tablet (Zyrtec) 10 mg PO DAILY PRN Allergy Symptoms 05/11/21 10/22/24 10/22/24 History sennosides 8.6 mg-docusate sodium 1 tab-cap PO DAILY PRN Constipation 12/05/21 10/22/24 10/21/24 History 50 mg tablet (Senna Plus) levothyroxine 150 mcg capsule 150 mcg PO DAILY 03/13/22 10/23/24 10/23/24 History chlorpheniramine maleate 4 mg 4 mg PO .HS 06/12/22 10/22/24 10/21/24 History tablet (Aller-Chlor) multivitamin 1 tab PO DAILY 06/12/22 10/22/24 10/22/24 History fluticasone propionate 50 2 spray intranasal .hs 07/12/22 10/22/24 10/21/24 History mcg/actuation nasal spray,suspension (Flonase Allergy Relief) pantoprazole 40 mg tablet,delayed 40 mg PO BID #90 tabs 07/12/22 10/23/24 10/23/24 Rx release uofmxsywqlu-ezw-jfsxqmqca-vitC 1 cap PO TID 01/17/23 10/22/24 10/22/24 History capsule (Glucosamine Complex-MSM capsule) turmeric root extract 500 mg 1,500 mg PO BID 11/22/23 10/22/24 10/22/24 History capsule atorvastatin 40 mg tablet 40 mg PO DAILY #90 tabs 02/12/24 10/22/24 10/21/24 Rx diclofenac sodium 1 % topical gel See Rx Instructions .Route 05/22/24 10/22/24 Unknown Rx .COMPLEX #300 grams cyclobenzaprine 10 mg tablet 10 mg PO BEDTIME 05/23/24 10/22/24 10/21/24 History fluticasone 500 mcg-salmeterol 50 1 inh inhalation BID 05/23/24 10/22/24 10/22/24 History mcg/dose blistr powdr for inhalation (Advair Diskus) torsemide 20 mg tablet 20 mg PO DAILY 1010/22/24 10/22/24 History zolpidem 5 mg tablet (Ambien) 2.5 mg PO BEDTIME PRN Insomnia 05/23/24 10/22/24 10/21/24 History hydrocodone 7.5 mg-acetaminophen 0.5 tab PO Q12H PRN Pain 07/01/24 10/22/24 10/20/24 History 325 mg tablet sacubitril 24 mg-valsartan 26 mg 1 tab PO BID 07/01/24 10/22/24 10/22/24 History tablet (Entresto) hydroxychloroquine 200 mg tablet See Rx Instructions .Route 07/14/24 10/22/24 10/22/24 Rx .COMPLEX #135 tabs bisoprolol fumarate 5 mg tablet 2.5 mg (1/2 x 5 mg) PO DAILY #45 08/11/24 10/22/24 10/22/24 Rx tabs allopurinol 100 mg tablet 200 mg PO DAILY 10/22/24 10/22/24 History Allergies Allergy/AdvReac Type Severity Reaction Status Date / Time adhesive tape Allergy Intermediate rash, Verified 10/23/24 09:23 itch, DERMABOND 2-octyl cyanoacrylate Allergy ALGY-Bliste Verified 10/23/24 09:23 r DANNY Inhibitors Allergy ADR-Cough Verified 10/23/24 09:23 povidone-iodine (From Allergy ALGY-Bliste Verified 10/23/24 09:23 Betadine) r propranolol (From Inderal LA) Allergy ADR-Depress Verified 10/23/24 09:23 ion soap (From Betadine) Allergy ALGY-Bliste Verified 10/23/24 09:23 r verapamil Allergy ADR-Headach Verified 10/23/24 09:23 e Current Medications Generic Name Dose Route Start Last Admin Trade Name Freq PRN Reason Stop Dose Admin Sodium Chloride 1,000 mls @ 30 mls/hr 10/23/24 09:15 10/23/24 09:54 Sodium Chloride 0.9% IV 10/24/24 09:14 30 mls/hr .Q24H MAL Administration PFSH Anesthesia Medical History Episcleritis History of iron deficiency anemia Anxiety and depression Peripheral neuropathy Hypothyroidism GERD (gastroesophageal reflux disease) Morbid obesity with BMI of 45.0-49.9, adult Stenosis of cervical spine with myelopathy Cervical disc disorder with myelopathy of mid-cervical region Intervertebral disc disorder with radiculopathy of lumbosacral region Sleep apnea Dyslipidemia Obesity Nonischemic cardiomyopathy Essential hypertension Hyperuricemia CKD (chronic kidney disease) MGUS (monoclonal gammopathy of unknown significance) Degenerative lumbar spinal stenosis Erosive osteoarthritis Gout, arthritis Surgical History Status post surgical removal of malignant neoplasm of skin Basal cell carcinoma History of lumbar laminectomy (05/13/21) Lumbar laminectomy at L4 and L5 with L4/5 interbody fusion and with L5/S1 interbody fusion History of surgical removal of ganglion cyst right wrist History of knee joint replacement Left 06/2018 right 12/2017 Hx of foot surgery Right x2-sub talur fusoin and arthrodesis Hx of hysterectomy Hx of bilateral oophorectomy with Dr. Watts at [facility] [place] and left side 2010 right side done when had hysterectomy at [place] Hx of tonsillectomy Status post reverse arthroplasty of right shoulder History of arthroplasty of left shoulder Family History Son Sarcoidosis Mother Cancer Sister Rheumatoid arthritis Grandmother Diabetes Father Cancer Myocardial infarction Social History Smoking and tobacco/nicotine status: never used tobacco/nicotine Second hand smoke exposure: No Alcohol intake: current Alcohol intake frequency: holidays/special occasions only Substance/Drug Use: never Household members: spouse Marital status: Current occupational status: employed Current occupation: [employer] [facility] [employer] Anesthesia Cardiac Studies: Echocardiogram 09/17/24 Echocardiogram Ultrasound 10/24/19 Sestamibi Stress Test (Cardiology) 05/28/23 Cardiac Event Monitor 09/11/24
--- NOTE | 2024-10-23 12:05 | W.PM.OPSFHP ---
Same Day Surgery H&P Indication for Procedure/HPI DATE OF PROCEDURE: October 23, 2024 CHIEF COMPLAINT/INDICATIONFOR SURGICAL PROCEDURE: Left carpal tunnel syndrome, left cubital tunnel syndrome PREOP DIAGNOSIS: Left carpal tunnel syndrome, left cubital tunnel syndrome PLANNED PROCEDURE: Operation Date: 10/23/24 10:45 Proposed Procedures p Carpal Tunnel Release(Left) - Delvin Jackie, DO s Cubital Tunnel Release(Left) - Delvin Jackie, DO s Ulnar Nerve Transposition(Left) - Delvin Dane, DO Medications/Allergies* Home Medications ?Medication ?Instructions ?Recorded ?Confirmed ?Type albuterol sulfate 90 mcg/actuation 2 puff inhalation QID PRN Wheezing 09/09/19 10/22/24 History aerosol inhaler (ProAir HFA) carbidopa ER 50 mg-levodopa 200 mg 1 tab PO BID 09/09/19 10/22/24 History tablet,extended release cholecalciferol (vitamin D3) 25 1,000 unit PO DAILY 09/09/19 10/22/24 History mcg (1,000 unit) tablet montelukast 10 mg tablet 10 mg PO BEDTIME 09/09/19 10/22/24 History (Singulair) gabapentin 300 mg capsule 300 mg PO BEDTIME 11/29/20 10/22/24 History cetirizine 10 mg tablet (Zyrtec) 10 mg PO DAILY PRN Allergy Symptoms 05/11/21 10/22/24 History sennosides 8.6 mg-docusate sodium 1 tab-cap PO DAILY PRN Constipation 12/05/21 10/22/24 History 50 mg tablet (Senna Plus) levothyroxine 150 mcg capsule 150 mcg PO DAILY 03/13/22 10/23/24 History chlorpheniramine maleate 4 mg 4 mg PO .HS 06/12/22 10/22/24 History tablet (Aller-Chlor) multivitamin 1 tab PO DAILY 06/12/22 10/22/24 History fluticasone propionate 50 2 spray intranasal .hs 07/12/22 10/22/24 History mcg/actuation nasal spray,suspension (Flonase Allergy Relief) ydupdjchjgs-zto-gnmxmmxrf-vitC 1 cap PO TID 01/17/23 10/22/24 History capsule (Glucosamine Complex-MSM capsule) turmeric root extract 500 mg 1,500 mg PO BID 11/22/23 10/22/24 History capsule cyclobenzaprine 10 mg tablet 10 mg PO BEDTIME 05/23/24 10/22/24 History fluticasone 500 mcg-salmeterol 50 1 inh inhalation BID 05/23/24 10/22/24 History mcg/dose blistr powdr for inhalation (Advair Diskus) torsemide 20 mg tablet 20 mg PO DAILY 05/23/24 10/22/24 History zolpidem 5 mg tablet (Ambien) 2.5 mg PO BEDTIME PRN Insomnia 05/23/24 10/22/24 History hydrocodone 7.5 mg-acetaminophen 0.5 tab PO Q12H PRN Pain 07/01/24 10/22/24 History 325 mg tablet sacubitril 24 mg-valsartan 26 mg 1 tab PO BID 07/01/24 10/22/24 History tablet (Entresto) allopurinol 100 mg tablet 200 mg PO DAILY 10/22/24 History Allergies/Adverse Reactions Allergy/AdvReac Type Severity Reaction Status Date / Time adhesive tape Allergy Intermediate rash, Verified 10/23/24 09:23 itch, DERMABOND 2-octyl cyanoacrylate Allergy ALGY-Bliste Verified 10/23/24 09:23 r DANNY Inhibitors Allergy ADR-Cough Verified 10/23/24 09:23 povidone-iodine (From Allergy ALGY-Bliste Verified 10/23/24 09:23 Betadine) r propranolol (From Inderal LA) Allergy ADR-Depress Verified 10/23/24 09:23 ion soap (From Betadine) Allergy ALGY-Bliste Verified 10/23/24 09:23 r verapamil Allergy ADR-Headach Verified 10/23/24 09:23 e Current Medications: Generic Name Dose Route Start Last Admin Trade Name Freq PRN Reason Stop Dose Admin Sodium Chloride 1,000 mls @ 30 mls/hr 10/23/24 09:15 10/23/24 09:54 Sodium Chloride 0.9% IV 10/24/24 09:14 30 mls/hr .Q24H MAL Administration Pertinent History/Comorbid Conditions* Medical History (Updated 09/19/24 @ 09:50 by Delvin Mejia DO) Episcleritis History of iron deficiency anemia Anxiety and depression Peripheral neuropathy Hypothyroidism GERD (gastroesophageal reflux disease) Morbid obesity with BMI of 45.0-49.9, adult Stenosis of cervical spine with myelopathy Cervical disc disorder with myelopathy of mid-cervical region Intervertebral disc disorder with radiculopathy of lumbosacral region Sleep apnea Dyslipidemia Obesity Nonischemic cardiomyopathy Essential hypertension Hyperuricemia CKD (chronic kidney disease) MGUS (monoclonal gammopathy of unknown significance) Degenerative lumbar spinal stenosis Erosive osteoarthritis Gout, arthritis Surgical History (Updated 08/06/23 @ 14:13 by Liborio Hackett MD) Status post surgical removal of malignant neoplasm of skin Basal cell carcinoma History of lumbar laminectomy (05/13/21) Lumbar laminectomy at L4 and L5 with L4/5 interbody fusion and with L5/S1 interbody fusion History of surgical removal of ganglion cyst right wrist History of knee joint replacement Left 06/2018 right 12/2017 Hx of foot surgery Right x2-sub talur fusoin and arthrodesis Hx of hysterectomy Hx of bilateral oophorectomy with Dr. Watts at [facility] [place] in 1982 and left side 2010 right side done when had hysterectomy at [place] Hx of tonsillectomy Status post reverse arthroplasty of right shoulder History of arthroplasty of left shoulder Family History (Updated 02/05/20 @ 08:10 by Iliana Natarajan LPN) Rheumatoid arthritis Sister Diabetes Grandmother Myocardial infarction Father Sarcoidosis Son Cancer Mother Father Social History Smoking and tobacco/nicotine status: never used tobacco/nicotine Second hand smoke exposure: No Alcohol intake: current Alcohol intake frequency: holidays/special occasions only Substance/Drug Use: never Household members: spouse Marital status: Current occupational status: employed Current occupation: [employer] [place] Pertinent Exam Findings alert, oriented x 3, operative site marked and procedure specific exam findings Please refer to detailed orthopedic examination on 09/16/2024 listed below: Bilateral Upper extremity exam negative spurlings no c-spine pain negative tinels bilateral shoulders. negative tinels right elbow over cubital tunnel positive tinels left elbow over cubital tunnel atrophy bilateral thenar eminence with weakness positive tinels, bilateral over carpal tunnels postive median nerve compression test bilateral Instrinsic weakness noted on the left hand Recommendations Surgery/Procedure today Other Plans: Plan proceed to the OR today for left carpal tunnel release, left cubital tunnel release with possible nerve transposition. Talked about the ins and outs procedure risk benefits complication alternatives surgery and through shared decision make elects proceed with surgical intervention. All questions have been answered at this time. She has been seen evaluated by anesthesia plan is for an axillary block with minimal anesthetic given patient's comorbidities per anesthesia's note. Patient understands the risk benefits and agrees to proceed with surgical intervention all questions answered Coding Level of Care Code Acute Code for Josephg Any
--- NOTE | 2024-10-23 13:30 | ANES.PROC ---
Anesthesia Procedures Procedure/Date: 10/23/24 Nerve Block ^: Nerve Block 1: Main Anesthesia: other (100mcg fentanyl) Time Out Performed: Yes Consent: requested by attending/covering physician and from patient Nerve block location: axillary Anesthesia monitors applied: pulse oximetry, EKG, BP cuff and oxygen Nerve block position: supine Anesthetic Used: ropivicaine 0.5% Amount of anesthesia used (mL): 30 Ultrasound used to: recognize landmarks Nerve Stimulator Used?: Yes Interscalene/Femoral BLK: other needle (pjunk 4inch) Injection: neg aspiration of heme Patient Tolerated Procedure: well Complications: none Additional Comments: decadron 4mg
--- NOTE | 2024-10-23 13:41 | PC.NURSE ---
Dr. Hurtado did a nerve block and then dc'd the iv that had infiltrated. He then started a new IVin the right ac
[2024-10-23] MEDS: ceFAZolin 2,000 MG in sodium chloride 0.9% (plus) 50 ML 100 MG IV (13:59)
[2024-10-23] MEDS: lidocaine-epi 1% 20 mL INJ 10 ML INJECTION (14:52)
--- NOTE | 2024-10-23 15:04 | PM.OP ---
Operative Report Date of procedure: October 23, 2024 Surgeon: Delvin Mejia DO Diesel Powerplant Mechanic Helper: Kulwant Mejia PA-C: PA was necessary for assistance in this case with hand positioning to execute the procedure, retraction and protection of neurovascular structures as well as to assist with wound closure and dressing application. Procedure: Preoperative diagnosis: Left carpal tunnel syndrome, left cubital tunnel syndrome Postop Diagnosis: Same Procedure done: Left carpal tunnel release Left?cubital tunnel tunnel release (ulnar nerve decompression at elbow) Surgeon: Delvin Mejia DO Estimated blood loss: 5 mL Tourniquet? 27 minutes IV fluids: 300 mL Complications: None Findings: See operative report narrative Condition: stable Disposition: same day Brief History: Patient's been seen and worked up in the outpatient setting and findings consistent with preoperative diagnosis.? Patient has Left carpal tunnel syndrome as well as Left?cubital tunnel syndrome which has been worked up in the outpatient setting has physical exam findings consistent with this as well as confirmatory nerve conduction/EMG nerve conduction study consistent with diagnosis.? Patient's failed conservative treatment.? As result through shared decision making agreed to proceed with? Left carpal tunnel and Left?cubital tunnel release with possible nerve transposition we talked about treatment options as far as nonoperative and operative intervention.? Understands risk benefits complication alternatives surgical nonsurgical treatment options.? Understanding his risks he agrees to proceed with surgical intervention. Understanding these risks he agrees to proceed with surgery.? Consent obtained in preop area. Procedure: Patient seen evaluate in the preoperative holding area.? Consent was reviewed and signed with patient.? Correct extremity marked.? Patient seen evaluated by anesthesia department once cleared for surgery was then taken back to the operative suite placed in supine position all bony prominences well-padded patient properly secured to bed.? Left upper extremity placed onto armboard.? Nonsterile tourniquet applied Left upper arm.? Patient then underwent anesthesia per the anesthesia department.? Patient's Left upper extremity was then prepped and draped in standard orthopedic fashion.? Final timeout performed.? Patient received appropriate preoperative antibiotics. Esmarch was used exsanguinate the Left upper extremity.? Tourniquet was insufflated to 250 mmHg. I started with the carpal tunnel release first.? I made a standard open carpal tunnel release starting with the distal most extent in the palm at the Victor's cardinal line and the incision line was made in line with the fourth ray and ended just distal to the wrist crease.? Sharp scalpel incision was made through skin and subcutaneous tissue I then utilizing self retainer then began to dissect with dissection scissors split longitudinally the palmar fascia.? Next I then utilizing my advertising assistant Gary retractors subsequently utilizing scalpel feathered through the palmaris brevis as well as through the transverse carpal ligament distally.? Once I encountered the floor of the transverse carpal ligament and entered into the carpal tunnel I then switched to dissection scissors.? Carefully released the distal extent of the transverse carpal ligament to the palmar fat.? Care was to protect the recurrent branch and not injured this during this part of the case.? Next I then placed a Winchester underneath the transverse carpal ligament proximally to protect the nerve in the carpal tunnel contents.? And then I subsequently under loupe magnification utilize my dissection scissors to release the transverse carpal ligament into the antebrachial fascia under direct visualization with care to keep my scissors with a curved ulnarly away from the palmar cutaneous branch.? The transverse carpal was then completely decompressed proximally and a Winchester was then placed both distally and proximally throughout the carpal tunnel and had complete decompression of the nerve.? The nerve did appear to have hourglass shape as it went through the carpal tunnel.? With significant irritation noted around the nerve.? No masses were noted within the contents of the carpal tunnel.? This completed the carpal tunnel release and then I subsequently irrigated the wound bed and placed a wet Ray-Jose into the incision for later closure. Next marked out the landmarks of the Left elbow of the medial epicondyle and olecranon and made a curvilinear incision following the course of the ulnar nerve at the medial aspect of the elbow.? Sharp scalpel incision was made through skin and subcutaneous tissue.? Next I switched to Littler dissection scissors and spread in plane of the medial antebrachial cutaneous nerve branching which was protected throughout this part of the dissection.? Then I directly came down over the fascia and identified the 2 heads of the FCU fascia and split this Left in the middle and subsequently identified my ulnar nerve distally.? This was then completely released distally under direct visualization and loupe magnification.? Once the nerve was then identified I then subsequently tracked this proximally and released this through Bond's ligament as well as complete decompression of the nerve proximally all the way past the intermuscular septum.? The nerve was completely released and decompressed both proximally and distally.? Ulnar nerve neurolysis performed and completed both proximally and distally with dissection scissors.? I then took the elbow through range of motion and there was no instability or subluxating of the ulnar nerve.? This completed?cubital tunnel release.? ?Next the wound bed was thoroughly irrigated.? Tourniquet was deflated.? Hemostasis was satisfactory at the?cubital tunnel release surgery site. I then inspected the carpal tunnel incision and this was found to have satisfactory hemostasis and all this was maintained through bipolar electrocautery.? At this point time I sequentially closed?cubital tunnel site with 3-0 Vicryl suture in a running horizontal mattress nylon stitch.? ? The carpal tunnel release surgery was then closed in standard interrupted mattress fashion.? Dressing was Xeroform 4 x 4's ABD Curlex soft roll and an Scott wrap has a bulky soft dressing. Patient was then awakened from anesthesia and taken to PACU in stable condition. Disposition: Patient taken to PACU in stable condition recovering well.? Patient will receive appropriate discharge instructions as well as pain medication postoperatively.? We will follow-up with me in the office in 2 weeks.? Patient understands agrees with current plan.? All questions answered.? Pt understands if any questions or concerns and contact the office for follow-up appointment..
--- NOTE | 2024-10-23 15:38 | W.PM.BPON ---
Date of Procedure: [October 23, 2024] Surgeon: [Dr. Mejia DO] Music Composition Teacher(s): [Kulwant Mejia PA-C] Procedure(s) performed: [Left carpal tunnel release left cubital tunnel release.] Findings of the procedure(s): [Left carpal tunnel syndrome and left cubital tunnel syndrome. Procedure went well and as planned.] Estimated blood loss: [5 ml] Specimen(s) removed: [N/A] Post-operative diagnosis: [Left carpal tunnel syndrome left cubital tunnel syndrome.]
--- NOTE | 2024-10-23 15:43 | PM.PACU ---
PACU note Narrative: Patient is a 79-year-old female that just underwent a left carpal tunnel and left cubital tunnel release. Patient transferred to PACU in stable condition. Pain is well controlled. Dressing on hand is dry and in place. Patient's fingers are warm and well-perfused. Unable to further assess motor or sensation to hand and arm due to residual anesthesia block. normal cap refill under 2 seconds. Exam: awake Disposition: discharged
--- NOTE | 2024-10-23 16:23 | ANE.PACU2 ---
Inpatient post-anesthesia follow up: Airway intact: Yes Vital signs: Temperature 97.7 F Pulse Rate 68 Respiratory Rate 17 Blood Pressure 171/94 Pulse Oximetry 95 Oxygen Delivery Me thod Room Air Oxygen Flow Rate Fraction of Inspir ed Oxygen Hydration adequate: Yes Nausea and vomiting: No Pain level: 1 Mental status: Baseline
== END 2024-10-23 16:23 | disposition home or self-care (01) ==
PROVIDERS: PCP Family Medicine; Visit Provider Student in an Organized Health Care Education/Training Program
PROC: (CPT 64721; principal; 2024-10-23 10:45)
PROC: (CPT 64718; 2024-10-23 10:45)
DX: G56.02 Carpal tunnel syndrome, left upper limb (principal); G56.22 Lesion of ulnar nerve, left upper limb; I12.9 Hypertensive chronic kidney disease with stage 1 through stage 4 chronic kidney disease, or unspecified chronic kidney disease; N18.30 Chronic kidney disease, stage 3 unspecified; E66.01 Morbid (severe) obesity due to excess calories; Z68.41 Body mass index [BMI] 40.0-44.9, adult; E03.9 Hypothyroidism, unspecified; G47.33 Obstructive sleep apnea (adult) (pediatric)
CPT/HCPCS: 64718; 64721; J0131; J0690; J1100; J1885; J2405; J2704; J3010; J7030; J9999

== ENCOUNTER → 2024-10-30 09:56 | Outpatient (BNVA) | payer MEDICARE, OTHER, SELFPAY | PROVIDERS: PCP Family Medicine; Visit Provider Nurse Practitioner Family | DX: I42.8 Other cardiomyopathies (principal); R06.02 Shortness of breath; I10 Essential (primary) hypertension | CPT/HCPCS: 99214 ==

== ENCOUNTER 2024-11-05 07:51 | Outpatient (CLI) | payer MEDICARE, OTHER, SELFPAY ==
--- NOTE | 2024-11-05 | ECG_ITS ---
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
[2024-11-05 08:03] VITALS: BMI 46.5
--- NOTE | 2024-11-05 08:03 | NMCV_ITS ---
NM dora perf SPECT r/s* [id number] Maryjo Lynn Age: 79 Gender: F : 1945 Exam Date: 11/05/2024 08:57 Ordering Phys: Lorenza Zambrano NP Technologist: LUISITO Wright Exam Location: [facility] Indications: cp STRESS TEST Please see separate [facility] for full findings IMAGE PROTOCOL Rest/Stress 1 Lexiscan Day Radiopharmaceutical Dose (mCi) Administration Site Administered by Rest: Tc-99m 10.8 IV Angela Vital, BAIL BONDSMAN Sestamibi Stress:Tc-99m 32.5 IV Angela Amanuel, BAIL BONDSMAN Sestamibi Rest: 05-Nov-2024 60 Discovery 630 Stress: 05-Nov-2024 30 Discovery 630 0.4mg Lexiscan. Images obtained in supine and prone position. SPECT RESULTS Technical Quality: Good Raw Data Analysis: Normal Image Corrections: No attenuation or motion correction applied Summed Stress Score: 11 Summed Rest Score: 14 Summed Difference Score: 2 PERFUSION FINDINGS Medium sized area of fixed perfusion defect seen in anterior wall. This is consistent with medium sized area of prior infarct seen in LAD territory. Large areas of reduced radiotracer uptake seen in inferior and inferolateral wall that resolves on prone imaging. This is consistent with attenuation artifact. FUNCTIONAL RESULTS (calculated via Gated SPECT) Stress Image LV EF (%): 24 Stress EDV (mL):201 TID: 0.95 Stress ESV (mL):152 FUNCTIONAL FINDINGS: LV systolic function is severely reduced with EF of 24% IMPRESSIONS 1. Abnormal myocardial perfusion imaging with medium sized area of prior infarction in the LAD territory. 2. Attenuation artifact is seen in RCA and circumflex artery territories. No evidence of ischemia. 3. LV systolic function is severely reduced with EF of 24%. Chava Harris MD (Electronically Signed) Final Date: 06 November 2024 18:18 S
[2024-11-05] MEDS: regadenoson 0.4 Mg/5 ml Syringe IVP (09:33)
[2024-11-05 09:49] VITALS: BP 136/78; PULSE 76
== END 2024-11-05 07:52 | disposition home or self-care (01) ==
LOC: CDL 07:52
PROVIDERS: PCP Family Medicine; Visit Provider Nurse Practitioner Family
DX: R07.9 Chest pain, unspecified (principal); R93.1 Abnormal findings on diagnostic imaging of heart and coronary circulation
CPT/HCPCS: 36415; 78452; 93017; 96374; 99024; A9500; J2785

== ENCOUNTER → 2024-12-17 10:32 | Outpatient (BNVA) | payer MEDICARE, OTHER, SELFPAY | PROVIDERS: PCP Family Medicine; Visit Provider Physician Assistant | DX: Z98.890 Other specified postprocedural states (principal) | CPT/HCPCS: 99024 ==

== ENCOUNTER 2024-12-22 14:03 | Outpatient (CLI) | payer MEDICARE, OTHER, SELFPAY ==
[2024-12-22 14:24] LABS: Basophils # 0.1 10^3/uL (0.0-0.1); Basophils % 0.5 %; Eosinophils # 0.3 10^3/uL (0.0-0.8); Eosinophils % 2.9 %; Hematocrit 30.2 % (36-47); Lymphocytes # 1.5 10^3/uL (0.8-4.8); Lymphocytes % 16.4 %; Mean Corpuscular HGB Conc 31.8 g/dL (30-55); Mean Corpuscular Hemoglobin 33.4 pg (27-33); Mean Corpuscular Volume 105.2 fl (85-98); Mean Platelet Volume 9.6 fL (7.4-10.4); Monocytes # 0.7 10^3/uL (0.2-0.9); Monocytes % 7.2 %; Neutrophils # 6.84 10^3/uL (1.8-7.7); Neutrophils % 72.8 %; Nucleated Red Blood Cells % 0 %; Platelet Count 276 10^3/cmm (157-399); Red Blood Count 2.87 10^6/uL (3.85-5.65)
[2024-12-22 14:42] LABS: Alanine Aminotransferase 9 U/L (0-33); Albumin Level 4.1 g/dL (3.5-5.2); Alkaline Phosphatase 72 U/L (35-105); Aspartate Amino Transferase 23 U/L (0-32); Globulin 2.3 g/dL (1.3-4.6); Total Bilirubin 0.2 mg/dL (0.15-1.2); Total Protein 6.4 g/dL (6.6-8.7); Uric Acid 4.9 mg/dL (2.4-5.7)
== END 2024-12-22 14:04 | disposition home or self-care (01) ==
LOC: LAB 14:06
PROVIDERS: PCP Family Medicine; Visit Provider Internal Medicine Rheumatology
DX: M10.9 Gout, unspecified (principal); G62.9 Polyneuropathy, unspecified; Z79.899 Other long term (current) drug therapy
CPT/HCPCS: 36415; 80076; 82565; 84550; 85025; 86140

== ENCOUNTER → 2024-12-30 15:22 | Outpatient (BNVA) | payer MEDICARE, OTHER, SELFPAY | PROVIDERS: PCP Family Medicine; Visit Provider Internal Medicine Cardiovascular Disease | DX: I42.8 Other cardiomyopathies (principal); I12.9 Hypertensive chronic kidney disease with stage 1 through stage 4 chronic kidney disease, or unspecified chronic kidney disease; I50.20 Unspecified systolic (congestive) heart failure; N18.9 Chronic kidney disease, unspecified; I35.0 Nonrheumatic aortic (valve) stenosis; I25.2 Old myocardial infarction | CPT/HCPCS: 99214 ==

== ENCOUNTER 2025-01-19 09:32 | Outpatient (CLI) | payer MEDICARE, OTHER, SELFPAY ==
--- NOTE | 2025-01-19 10:00 | USCV_ITS ---
Maryjo Lynn Age: 79 Gender: F : 1945 Exam Date: 01/19/2025 10:01 Ordering Phys: Lorenza Zambrano NP Technologist: MIRIAM Exam Location: [facility] Indication: Systolic Heart Failure BP: 172 / 69 HR: 63 Rhythm: Sinus Technical Quality: Adequate MEASUREMENTS (Male / Female) Normal Values 2D ECHO LV Diastolic Diameter PLAX 6.2 cm 4.2 - 5.9 / 3.9 - 5.3 cm IVS Diastolic Thickness 0.9 cm 0.6 - 1.0 / 0.6 - 0.9 cm IVS Systolic Thickness 1.2 cm LVPW Diastolic Thickness 1.1 cm 0.6 - 1.0 / 0.6 - 0.9 cm LVPW Systolic Thickness 1.7 cm LVOT Diameter 2.1 cm LV Ejection Fraction 2D Teich 40.3 % LV Ejection Fraction MOD 4C 37.1 % LV Ejection Fraction MOD 2C 40.8 % LV Ejection Fraction 2C AL 41.8 % LA Diameter 4.6 cm RA Systolic Volume 4C AL 40.8 ml RA Systolic Volume 4C MOD 39.3 ml LA Sys Volume AL 74.5 cm cubed LA Sys Volume Index AL 33.0 cm cubed/m squared Aorta at Sinotubular Diameter 2.0 cm IVC Diameter 2.5 cm M-MODE LA Ao Ratio MM 1.4 AV Cusp Separation MM 1.0 cm DOPPLER AV Peak Velocity 216.7 cm/s LVOT Peak Velocity 131.0 cm/s AV Area Cont Eq vti 2.2 cm squared AV Area Cont Eq pk 2.1 cm squared MV Peak Velocity 110.0 cm/s MV Area PHT 2.8 cm squared Mitral E to A Ratio 1.1 TR Peak Velocity 114.0 cm/s TR Peak Gradient 5.2 mmHg TV Peak E Velocity 79.0 cm/s PV Peak Velocity 98.0 cm/s FINDINGS Left Ventricle Left ventricle is dilated. LV systolic function is moderately reduced with EF of 35-40%. Moderate global hypokinesis Right Ventricle Normal in size and function Right Atrium Normal in size Left Atrium Dilated Mitral Valve Grossly normal. Mild mitral regurgitation. Aortic Valve Aortic valve is thickened and calcified. Mild aortic stenosis with aortic valve area of 2.1 cm2 and mean gradient of 11 mmHg Tricuspid Valve Insufficient TR jet to evaluate RVSP. Pulmonic Valve Trace pulmonic regurgitation. Pericardium Normal Aorta Normal in size IVC Appears to be dilated CONCLUSIONS Left ventricle is dilated. LV systolic function is moderately reduced with EF of 35 to 40%. Left atrial dilation. Mild mitral regurgitation. Mild aortic stenosis. Trace pulmonic regurgitation. IVC appears to be dilated. Chava Harris MD (Electronically Signed) Final Date: 01 February 2025 14:33 S
== END 2025-01-19 09:33 | disposition home or self-care (01) ==
PROVIDERS: PCP Family Medicine; Visit Provider Nurse Practitioner Family
DX: I42.8 Other cardiomyopathies (principal); R93.1 Abnormal findings on diagnostic imaging of heart and coronary circulation; I51.7 Cardiomegaly; I34.0 Nonrheumatic mitral (valve) insufficiency; I35.8 Other nonrheumatic aortic valve disorders; I35.0 Nonrheumatic aortic (valve) stenosis
CPT/HCPCS: 93306

== ENCOUNTER → 2025-01-23 10:50 | Outpatient (BNVA) | payer MEDICARE, OTHER, SELFPAY | PROVIDERS: PCP Family Medicine; Visit Provider Nurse Practitioner Family | DX: L73.9 Follicular disorder, unspecified (principal); L23.9 Allergic contact dermatitis, unspecified cause; D22.61 Melanocytic nevi of right upper limb, including shoulder; Z08 Encounter for follow-up examination after completed treatment for malignant neoplasm; Z85.828 Personal history of other malignant neoplasm of skin; Z87.2 Personal history of diseases of the skin and subcutaneous tissue | CPT/HCPCS: 99213 ==

== ENCOUNTER 2025-02-20 09:40 | Emergency (ER) | payer MEDICARE, OTHER, SELFPAY ==
--- OUTSIDE RECORDS SUMMARY | 2025-02-20 09:49 | XMS_ITS | Encounter Summary ---
Author Organization [facility] Address [address] [place] [address] Care Team Providers Care Applications Consultant Name Role Phone Tip Manning DO Primary Care Provider Encounter Details Date Type Department Care Team (Latest Contact Info) Description 04/25/2006 Outpatient Historical [facility] Rheumatology- [facility] [place] [address] [place] [phone] Rachel Desai MD [address] [place], [place] [id number] Generalized Osteoarthrosis, Involving Multiple Sites (Primary Dx); Encounter for Long-Term (Current) Use of Other Medications Social History Tobacco Use Types Packs/Day Years Used Date Smoking Tobacco: Never Assessed Comments Unknown Sex and Gender Information Value Date Recorded Sex Assigned at Not on file Legal Sex Female 4:01 AM PARTS PERSON Gender Identity Not on file Sexual Orientation Not on file documented as of this encounter Plan of Treatment Not on file documented as of this encounter Visit Diagnoses Diagnosis Generalized osteoarthrosis, involving multiple sites- Primary Encounter for long-term (current) use of other medications documented in this encounter Care Teams Applications Consultant Relationship Specialty Start Date End Date Tip Manning DO [address] [place] [phone] PCP - General 08/16/07 documented as of this encounter
--- OUTSIDE RECORDS SUMMARY | 2025-02-20 09:49 | XMS_ITS | Clinical Summary ---
Author Organization [facility] Address [address] [place] [address] Care Team Providers Care Customer Supply Coordinator Name Role Phone Nigel Lelanddede Caceres Primary Care Provider [phone] Allergies No known active allergies Medications MICARDIS HCT 80-25 mg Oral Tab Take by mouth daily. Active SYNTHROID 200 mcg Oral Tab Take 200 mcg by mouth daily. Active PLAQUENIL 200 mg Oral Tab Take 200 mg by mouth daily. 2 tabs daily Active ZYRTEC 10 mg Oral Tab 10 mg daily. Active EFFEXOR 37.5 mg Oral Tab Take 37.5 mg by mouth 2 times daily. Active CELEBREX 200 mg Oral Cap Take 200 mg by mouth 2 times daily. Active LIPITOR 40 mg Oral Tab Take 40 mg by mouth daily. Active SINGULAIR 10 mg Oral Tab Take 10 mg by mouth daily at bedtime. Active ADVAIR DISKUS 500-50 mcg/Dose Inhalation DsDv Take 1 Puff by inhalation every 12 hours. Active PREMARIN 1.25 mg Oral Tab Take 1.25 mg by mouth daily at bedtime. Active FLEXERIL 10 mg Oral Tab Take 10 mg by mouth daily at bedtime. Active Glucosamine 1,000 mg Oral Tab Take 1000 mg by mouth 2 times daily. Active AMBIEN 10 mg Oral Tab Take 10 mg by mouth nightly as needed for Insomnia. 1/4 tab bedtime PRN Active DARVOCET-N 100 PO Take 100 mg by mouth. 1 tab every 4-6 hours PRN Active FISH OIL PO Take by mouth. 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 Gender Identity Not on file Sexual Orientation Not on file Last Filed Vital Signs Vital Sign Reading Time Taken Comments Blood Pressure 138/78 11/25/2007 3:45 PM CDT Pulse - - Temperature - - Respiratory Rate - - Oxygen Saturation - - Inhaled Oxygen Concentration - - Weight 110.7 kg (244 lb) 11/25/2007 3:45 PM CDT Height - - Body Mass Index - - Plan of Treatment Health Maintenance Due Date Last Done Comments DTAP/TDAP/TD VACCINES (1 - Tdap) 1966 PNEUMOCOCCAL VACCINE 50+ YEARS (1 of 1 - PCV) 09/12/18 98 ZOSTER VACCINE (1 of 2) 1997 OSTEOPOROSIS SCREENING 2012 RSV VACCINE (60+ or ) (1 - 1-dose 75+ series) 2022 INFLUENZA VACCINE (#1) 2025 Care Teams Customer Supply Coordinator Relationship Specialty Start Date End Date Tip Manning DO [address] [place] [phone] PCP - General 08/16/07
--- OUTSIDE RECORDS SUMMARY | 2025-02-20 09:49 | XMS_ITS | Encounter Summary ---
Author Organization [facility] Address [address] [place] [address] Care Team Providers Care Roofer Applicator Name Role Phone Tip Manning DO Primary Care Provider Encounter Details Date Type Department Care Team (Latest Contact Info) Description 10/24/2006 Outpatient Historical [facility] Rheumatology- [facility] [address] [place] [phone] Rachel Desai MD [address] [place], [place] [id number] Osteoarthrosis, Unspecified Whether Generalized or Localized, Hand (Primary Dx) Social History Tobacco Use Types Packs/Day Years Used Date Smoking Tobacco: Never Assessed Comments Unknown Sex and Gender Information Value Date Recorded Sex Assigned at Not on file Legal Sex Female 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
--- OUTSIDE RECORDS SUMMARY | 2025-02-20 09:49 | XMS_ITS | Clinical Summary ---
Author Organization [facility] Address [address] [address] Care Team Providers Care Claims Director Name Role Phone Haider Cancino MD Primary Care Provider Unavailabl e Allergies Active Allergy Reactions Criticality Noted Date Comments Scott Inhibitors 02/25/2023 Other Reaction(s): ADR-Cough Adhesive Tape High 02/25/2023 Other Reaction(s): rash, itch, DERMABOND Carvedilol Shortness of breath High 04/28/2022 Diltiazem Shortness of breath High 09/19/2023 Other Other (see comments) 06/10/2018 Beta blockers -Depression Dermabond - blisters Povidone Iodine 03/18/2024 Other Reaction(s): Not available Povidone-Iodine 02/25/2023 Other reaction(s): ALGY-Blister Propranolol Other (see comments) 12/11/2017 depression Other Reaction(s): ADR-Depression Verapamil Other (see comments) 12/11/2017 Medications zolpidem (AMBIEN) 5 MG tablet Take 2.5 mg by mouth 8 Active allopurinol (ZYLOPRIM) 100 MG tablet 200 mg 1 (one) time each day 9 Active atorvastatin (LIPITOR) 40 MG tablet Take 40 mg by mouth 8 Active Ferrous Sulfate (IRON PO) Take 1 tablet by mouth 3 times a day Active levothyroxine (SYNTHROID, LEVOTHROID) 200 MCG tablet Take 150 mcg by mouth in the morning. Active pantoprazole (PROTONIX) 40 MG EC tablet Take 40 mg by mouth in the morning and 40 mg in the evening. 8 Active cyclobenzaprine (FLEXERIL) 10 MG tablet Take 15 mg by mouth 5mg PRN and 10 mg at bedtime 8 Active carbidopa-levodo pa (SINEMET) 25-250 MG per tablet Take 1 tablet by mouth in the morning and 1 tablet in the evening. 8 Active venlafaxine XR (EFFEXOR-XR) 75 MG 24 hr capsule Take 37.5 mg by mouth in the morning. 8 Active torsemide (DEMADEX) 20 MG tablet Take 10 mg by mouth in the morning. Active folic acid (FOLVITE) 1 MG tablet Take 1 mg by mouth in the morning and 1 mg in the evening. Active predniSONE (DELTASONE) 1 MG tablet Take 2.5 mg by mouth 1 (one) time each day prn Active gabapentin (NEURONTIN) 300 MG capsule Take 300 mg by mouth 1 (one) time each day Active montelukast (SINGULAIR) 10 MG tablet Take 10 mg by mouth every night Active ProAir HFA 108 (90 Base) MCG/ACT inhaler every 4 (four) hours if needed 2 Active cetirizine (ZyrTEC) 10 MG tablet 10 mg in the morning. Active Plaquenil 200 MG tablet Pt is taking 200 mg QOD and 400 QOD 2 Active bisoprolol (ZEBETA) 5 MG tablet Take 2.5 mg by mouth 1 (one) time each day Active HYDROcodone-acet aminophen (NORCO) 5-325 MG per tablet Take 1 tablet by mouth every 6 (six) hours if needed for moderate pain 7.5 / 325 pt is taking a 1/2 tablet PRN Active calcium carbonate (TUMS) 500 MG chewable tablet Chew 1 tablet if needed Active Nutritional Supplements (GLUCOSAMINE COMPLEX PO) Take 1,500 capsules by mouth in the morning and 1,500 capsules at noon and 1,500 capsules in the evening. 3 Active Turmeric (QC TUMERIC COMPLEX PO) Take 1,500 mg by mouth 1 (one) time each day 3 Active Sennosides-Docus ate Sodium (SENNA PLUS PO) Take 1 tablet by mouth at night if needed 2 Active Diclofenac Sodium 1 % gel Four Times Daily 3 Active ketoconazole (NIZORAL) 2 % cream 3 Active ketoconazole (NIZORAL) 2 % shampoo 3 Active Wixela Inhub 500-50 MCG/ACT aerosol powder 4 Active Entresto 24-26 MG per tablet Take 1 tablet by mouth 1 (one) time each day Active acetaminophen (TYLENOL) 500 MG tablet Take 1,000 mg by mouth every night Active Active Problems Problem Noted Date Diagnosed Date Gout 09/09/2024 Chronic kidney disease, Stage IV (severe) 2021 Hyperuricemia 05/26/2022 Hypothyroidism 05/26/2022 Hyperlipidemia 05/26/2022 Essential (primary) hypertension 05/26/2022 Monoclonal gammopathy of undetermined significan ce (MGUS) 05/26/2022 Iron deficiency 05/26/2022 History of total knee arthroplasty 05/26/2019 Osteoarthritis 06/17/2018 Family History Medical History Relation Comments Heart disease Father Hypertension Father Hypertension Mother Relation Status Comments Father Mother Social History Tobacco Use Types Packs/Day Years Used Date Smoking Tobacco: Never Smokeless Tobacco: Never Tobacco Cessation:Counseling Given: Not Answered Alcohol Use Standard Drinks/Week Comments Never 0 (1 standard drink = 0.6 oz pur e alcohol) Comments Unknown Sex and Gender Information Value Date Recorded Sex Assigned at Not on file Legal Sex Female 10:27 AM EDT Gender Identity Not on file Sexual Orientation Not on file Last Filed Vital Signs Vital Sign Reading Time Taken Comments Blood Pressure 126/66 09/09/2024 10:37 AM CLAY CARMAN Pulse 67 09/09/2024 10:37 AM C[place] CARMAN Temperature - - Respiratory Rate - - Oxygen Saturation 96% 09/09/2024 10:37 AM C[place] CARMAN Inhaled Oxygen Concentration - - Weight 113 kg (249 lb 9.6 oz) 09/09/2024 10:37 A M C[place] CARMAN Height 154.9 cm (5' 1 ) 09/09/2024 10:37 AM [place] CARMAN Body Mass Index 47.16 09/09/2024 10:37 AM C[place] CARMAN Plan of Treatment Upcoming Encounters Date Type Department Care Team (Late st Contact Info) Description 03/09/2025 Orders Only [facility] [address] [place] [address] Margarita Han, MIKE [address] [facility] [address] [place] [address] Chronic kidney disease, Stage IV (severe) (HCC); Monoclonal gammopathy of undetermined significance (MGUS) 03/17/2025 10:30 AM CDT Office Visit [facility] [address] [place] [address] Margarita Han, LEAN MANUFACTURING COORDINATOR [address] [facility] [address] [place] [address] Health Maintenance Due Date Last Done Comments Pneumococcal Vaccine: 50+ Years (3 of 3 - PCV) 06/12/2019 06/12/2018, 05/07/2015 Influenza Vaccine (#1) 2025 4, 07/20/2022, 05/27/2020 Hepatitis B Vaccine Aged Out No longe r eligible based on patient's age to complete this topic Insurance Medicare [facility] Care Teams Claims Director Relationship Specialty Start Date End Date Haider Cancino MD [address] [place] [address] PCP - General Family Medicine 09/09/24
--- OUTSIDE RECORDS SUMMARY | 2025-02-20 09:49 | XMS_ITS | Encounter Summary ---
Author Organization [facility] Address [address] [place] [address] Care Team Providers Care Pin Drafter Operator Name Role Phone Tip Manning DO Primary Care Provider [phone] Encounter Details Date Type Department Care Team (Latest Contact Info) Description 06/26/2005 Outpatient Historical [facility] Rheumatology- [facility] [place] [address] [place] [phone] Rachel Desai MD [address] [place], [place] [phone] GENERAL OSTEOARTHROSIS (Primary Dx) Social History Tobacco Use Types Packs/Day Years Used Date Smoking Tobacco: Never Assessed Comments Unknown Sex and Gender Information Value Date Recorded Sex Assigned at Not on file Legal Sex Female 4:01 AM WAGON WINDER Gender Identity Not on file Sexual Orientation Not on file documented as of this encounter Plan of Treatment Not on file documented as of this encounter Visit Diagnoses Diagnosis Generalized osteoarthrosis, involving multiple sites- Primary documented in this encounter Care Teams Pin Drafter Operator Relationship Specialty Start Date End Date Tip Manning DO [address] [place] [phone] PCP - General 08/16/07 documented as of this encounter
--- OUTSIDE RECORDS SUMMARY | 2025-02-20 09:49 | XMS_ITS | Encounter Summary ---
Author Organization [facility] Address [address] [place] [address] Care Team Providers Care Polishing Wheel Setter Name Role Phone Tip Manning DO Primary Care Provider [phone] Encounter Details Date Type Department Care Team (Latest Contact Info) Description 12/29/2005 Outpatient Historical [facility] Rheumatology- [facility] [place] [address] [place] [phone] Rachel Desai MD [address] [place], [place] [phone] Generalized Osteoarthrosis, Involving Hand (Primary Dx) Social History Tobacco Use Types Packs/Day Years Used Date Smoking Tobacco: Never Assessed Comments Unknown Sex and Gender Information Value Date Recorded Sex Assigned at Not on file Legal Sex Female 4: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
--- OUTSIDE RECORDS SUMMARY | 2025-02-20 09:49 | XMS_ITS | Encounter Summary ---
Author Organization [facility] Address [address] [place] [address] Phone Care Team Providers Care Payroll Professional Name Role Phone Haider Cancino MD Primary Care Provider Unavailabl e Encounter Details Date Type Department Care Team (Late st Contact Info) Description 04/03/2022 Orders Only [facility] [address] [facility] [address] [place] [address] Serum creatinine raised Social History Tobacco Use Types Packs/Day Years Used Date Smoking Tobacco: Never Assessed Comments Unknown Sex and Gender Information Value Date Recorded Sex Assigned at Not on file Legal Sex Female 10:27 AM EDT Gender Identity Not on file Sexual Orientation Not on file documented as of this encounter Plan of Treatment Upcoming Encounters Date Type Department Care Team (Late st Contact Info) Description 03/09/2025 Orders Only [facility], [address] [address] Margarita Han NP [address] [facility] [address] [place] [address] Chronic kidney disease, Stage IV (severe) (HCC); Monoclonal gammopathy of undetermined significance (MGUS) 03/17/2025 10:30 AM CDT Office Visit [facility], [address] [address] Margarita Han NP [address] [place] [address] documented as of this encounter Visit Diagnoses Diagnosis Serum creatinine raised Chronic kidney disease, Stage IV (severe) (HCC) Chronic kidney disease, Stage IV (severe) Monoclonal gammopathy of undetermined significance (MGUS) documented in this encounter Care Teams Payroll Professional Relationship Specialty Start Date End Date Haider Cancino MD [address] [place] [address] PCP - General Family Medicine 09/09/24 documented as of this encounter
[2025-02-20 09:54] VITALS: BP 130/78; PULSE 75; RESP 15; TEMP 36.6; O2SAT 97; BMI 45.1
[2025-02-20 11:38] VITALS: BP 149/107; O2SAT 95
[2025-02-20 11:40] LABS: Hematocrit 33.3 % (36-47); Hemoglobin 10.40 g/dL (11.27-16.99); Mean Corpuscular HGB Conc 31.2 g/dL (30-55); Mean Corpuscular Hemoglobin 33.3 pg (27-33); Mean Corpuscular Volume 106.7 fl (85-98); Nucleated Red Blood Cells % 0 %; Platelet Count 321 10^3/cmm (157-399); Red Blood Count 3.12 10^6/uL (3.85-5.65); White Blood Count 11.23 10^3/uL (3.29-11.43)
[2025-02-20 11:44] VITALS: BP 149/107; PULSE 61; RESP 18; O2SAT 96
[2025-02-20 11:57] LABS: Alanine Aminotransferase 7 U/L (0-33); Albumin Level 4.1 g/dL (3.5-5.2); Alkaline Phosphatase 78 U/L (35-105); Anion Gap 20.4 (5-19); Aspartate Amino Transferase 23 U/L (0-32); Blood Urea Nitrogen 50 mg/dL (8-23); Calcium 10.1 mg/dL (8.5-10.5); Carbon Dioxide 22 mmol/L (22-29); Chloride 103 mmol/L (98-107); Creatinine Clr Calc Pharmacy 33.4890; Globulin 2.9 g/dL (1.3-4.6); Glucose 92 mg/dL (65-115); Osmolality Calculated 305 mOsm/kg (285-295); Potassium 4.4 mmol/L (3.5-5.1); Sodium 141 mmol/L (136-145); Total Protein 7.0 g/dL (6.6-8.7)
--- NOTE | 2025-02-20 13:02 | W.ED.EXTPRO ---
HPI - Extremity Problem General: Chief complaint: Extremity Injury, Upper Stated complaint: LT. Arm Painful Time Seen by Provider: 02/20/25 09:44 History of Present Illness: 79-year-old female she fell about 10 days ago has a bruise on her forearm she has some palpable knots there she is concerned about a blood clot. She denies being on any oral anticoagulants. She has a history of Parkinson's she ambulates only with a walker. She denies striking her head denies losing consciousness she does have some bruising on her right knee as well but she has been able to bear weight. She previously had a right knee arthroplasty. Associated symptoms: Deny chest pain, fever(s) or rash Related Data Home Medications ?Medication ?Instructions ?Recorded ?Confirmed albuterol sulfate 90 mcg/actuation 2 puff inhalation QID PRN Wheezing 09/09/19 12/30/24 aerosol inhaler (ProAir HFA) carbidopa ER 50 mg-levodopa 200 mg 1 tab PO BID 09/09/19 12/30/24 tablet,extended release montelukast 10 mg tablet 10 mg PO BEDTIME 09/09/19 12/30/24 (Singulair) gabapentin 300 mg capsule 300 mg PO BEDTIME 11/29/20 12/30/24 cetirizine 10 mg tablet (Zyrtec) 10 mg PO DAILY PRN Allergy Symptoms 05/11/21 12/30/24 sennosides 8.6 mg-docusate sodium 1 tab-cap PO DAILY PRN Constipation 12/05/21 12/30/24 50 mg tablet (Senna Plus) levothyroxine 150 mcg capsule 150 mcg PO DAILY 03/13/22 12/30/24 chlorpheniramine maleate 4 mg 4 mg PO .HS 06/12/22 12/30/24 tablet (Aller-Chlor) multivitamin 1 tab PO DAILY 06/12/22 12/30/24 fluticasone propionate 50 2 spray intranasal .hs 07/12/22 12/30/24 mcg/actuation nasal spray,suspension (Flonase Allergy Relief) [id number]-[id number]-vitC 1 cap PO TID 01/17/23 12/30/24 capsule (Glucosamine Complex-MSM capsule) turmeric root extract 500 mg 1,500 mg PO BID 11/22/23 12/30/24 capsule cyclobenzaprine 10 mg tablet 10 mg PO BEDTIME 05/23/24 12/30/24 fluticasone 500 mcg-salmeterol 50 1 inh inhalation BID 05/23/24 12/30/24 mcg/dose blistr powdr for inhalation (Advair Diskus) zolpidem 5 mg tablet (Ambien) 2.5 mg PO BEDTIME PRN Insomnia 05/23/24 12/30/24 hydrocodone 7.5 mg-acetaminophen 0.5 tab PO Q12H PRN Pain 07/01/24 12/30/24 325 mg tablet torsemide 20 mg tablet 10 mg PO DAILY 02/03/25 Previous Rx's ?Medication ?Instructions ?Recorded pantoprazole 40 mg tablet,delayed 40 mg PO BID #90 tabs 07/12/22 release diclofenac sodium 1 % topical gel See Rx Instructions .Route 05/22/24 .COMPLEX #300 grams atorvastatin 40 mg tablet 40 mg PO DAILY #90 tabs 12/30/24 bisoprolol fumarate 5 mg tablet 2.5 mg (1/2 x 5 mg) PO DAILY #45 12/30/24 tabs sacubitril 24 mg-valsartan 26 mg 1 tab PO DIRECTED #270 tabs 12/30/24 tablet (Entresto) allopurinol 100 mg tablet 200 mg (2 x 100 mg) PO DAILY #180 01/06/25 tabs hydroxychloroquine 200 mg tablet 200 mg PO BID #135 tabs 01/12/25 (Plaquenil) Allergies Allergy/AdvReac Type Severity Reaction Status Date / Time adhesive tape Allergy Intermediate rash, Verified 12/30/24 16:31 itch, DERMABOND 2-octyl cyanoacrylate Allergy ALGY-Bliste Verified 12/30/24 16:31 r DANNY Inhibitors Allergy ADR-Cough Verified 12/30/24 16:31 povidone-iodine (From Allergy ALGY-Bliste Verified 12/30/24 16:31 Betadine) r propranolol (From Inderal LA) Allergy ADR-Depress Verified 12/30/24 16:31 ion soap (From Betadine) Allergy ALGY-Bliste Verified 12/30/24 16:31 r verapamil Allergy ADR-Headach Verified 12/30/24 16:31 e Review of Systems Const: Denies: fever(s) or chills Card: Denies: chest pain Resp: Denies: dyspnea GI: Denies: abdominal pain : Denies: dysuria, urinary frequency or urinary urgency Musc: Denies: neck pain or back pain Skin/Breast: Denies: rash Phil/Lymph: Reports: easy bruising and easy bleeding PFSH ED PFSH: Medical History Episcleritis History of iron deficiency anemia Anxiety and depression Peripheral neuropathy Hypothyroidism GERD (gastroesophageal reflux disease) Morbid obesity with BMI of 45.0-49.9, adult Stenosis of cervical spine with myelopathy Cervical disc disorder with myelopathy of mid-cervical region Intervertebral disc disorder with radiculopathy of lumbosacral region Sleep apnea Dyslipidemia Obesity Nonischemic cardiomyopathy Essential hypertension Hyperuricemia CKD (chronic kidney disease) MGUS (monoclonal gammopathy of unknown significance) Degenerative lumbar spinal stenosis Erosive osteoarthritis Gout, arthritis Surgical History Status post surgical removal of malignant neoplasm of skin Basal cell carcinoma History of lumbar laminectomy (05/13/21) Lumbar laminectomy at L4 and L5 with L4/5 interbody fusion and with L5/S1 interbody fusion History of surgical removal of ganglion cyst right wrist History of knee joint replacement Left 06/2018 right 12/2017 Hx of foot surgery Right x2-sub talur fusoin and arthrodesis Hx of hysterectomy Hx of bilateral oophorectomy with Dr. Watts at [facility] in 1982 and left side 2010 right side done when had hysterectomy at [place] Hx of tonsillectomy Status post reverse arthroplasty of right shoulder History of arthroplasty of left shoulder Family History Son Sarcoidosis Mother Cancer Sister Rheumatoid arthritis Grandmother Diabetes Father Cancer Myocardial infarction Social History Smoking and tobacco/nicotine status: never used tobacco/nicotine Second hand smoke exposure: No Alcohol intake: current Alcohol intake frequency: holidays/special occasions only Substance/Drug Use: never Household members: spouse Marital status: Current occupational status: employed Current occupation: [employer] [place] Physical Exam Const: GENERAL APPEARANCE: cooperative ORIENTATION/CONSCIOUSNESS: Yes awake, Yes oriented to person, Yes oriented to place and Yes oriented to time HENMT: COMMON NORMALS: normocephalic, atraumatic and hearing grossly normal bilaterally HEAD & SCALP: normocephalic and atraumatic Resp: COMMON NORMALS: normal respiratory effort, No retractions, No use of accessory muscles and clear to auscultation bilaterally AUSCULTATION: clear to auscultation bilaterally Cardio: COMMON NORMALS: regular rate, regular rhythm and No murmurs present (Cardio) RATE: regular rate RHYTHM: regular rhythm GI: COMMON NORMALS: Soft to palpation and No hepatosplenomegaly present AUSCULTATION: Yes normoactive bowel sounds PALPATION: Yes Soft to palpation, No Tenderness to palpation present (GI), No Guarding due to palpation present (GI) and Yes No hepatosplenomegaly present Extremity: COMMON NORMALS: normal to inspection, capillary refill normal, no clubbing, cyanosis or edema, no calf tenderness and no pedal edema OTHER: Ecchymosis volar surface right forearm large circular pattern shows signs of reabsorbing in the central portion there is palpable nodules and extremely beadlike configuration. Extends over the length of about 4 to 5 inches minimally tender. Neuro: SENSORIUM/ORIENTATION: Yes oriented to person, Yes oriented to place and Yes oriented to time Skin: COMMON NORMALS: no rashes or lesions noted GENERAL SKIN EXAM: no rashes or lesions noted Course Vital Signs: Vital signs: Vital Signs Temperature 97.9 F 02/20/25 09:54 Pulse Rate 61 02/20/25 11:44 Respiratory Rate 18 02/20/25 11:44 Blood Pressure 149/107 02/20/25 11:44 Pulse Oximetry 96 02/20/25 11:44 Oxygen Delivery Me thod Room Air 02/20/25 09:54 MDM - Extremity (Nontraumatic) Medical Decision Making Patient has palpable nodules in the area of bruising on her volar surface of her left forearm consistent with superficial thrombophlebitis. Just observe can apply moist heat no other interventions needed Medical Records I reviewed the patient's medical records. Lab Data I reviewed the patient's lab results. 02/20/25 11:22 02/20/25 11:22 Laboratory Results WBC 11.23 10^3/uL (3.29-11.43) 02/20/25 11:22 RBC 3.12 10^6/uL (3.85-5.65) L 02/20/25 11:22 Hgb 10.40 g/dL (11.27-16.99) L 02/20/25 11:22 Hct 33.3 % (36-47) L 02/20/25 11:22 MCV 106.7 fl (85-98) H 02/20/25 11:22 MCH 33.3 pg (27-33) H 02/20/25 11:22 MCHC 31.2 g/dL (30-55) 02/20/25 11:22 RDW 18.8 % (12.1-15.1) H 02/20/25 11:22 Plt Count 321 10^3/cmm (157-399) 02/20/25 11:22 MPV 10.2 fL (7.4-10.4) 02/20/25 11:22 Neut % (Auto) 67.3 % 02/20/25 11:22 Lymph % (Auto) 17.7 % 02/20/25 11:22 Barnes % (Auto) 11.0 % 02/20/25 11:22 Eos % (Auto) 3.1 % 02/20/25 11:22 Baso % (Auto) 0.7 % 02/20/25 11:22 Neut # (Auto) 7.55 10^3/uL (1.8-7.7) 02/20/25 11:22 Lymph # (Auto) 2.0 10^3/uL (0.8-4.8) 02/20/25 11:22 Barnes # (Auto) 1.2 10^3/uL (0.2-0.9) H 02/20/25 11:22 Eos # (Auto) 0.4 10^3/uL (0.0-0.8) 02/20/25 11:22 Baso # (Auto) 0.1 10^3/uL (0.0-0.1) 02/20/25 11:22 Nucleated RBC % (auto) 0 % 02/20/25 11:22 Nucleated RBCs # 0.0 /100WBC 02/20/25 11:22 Sodium 141 mmol/L (136-145) 02/20/25 11:22 Potassium 4.4 mmol/L (3.5-5.1) 02/20/25 11:22 Chloride 103 mmol/L (98-107) 02/20/25 11:22 Carbon Dioxide 22 mmol/L (22-29) 02/20/25 11:22 Anion Gap 20.4 (5-19) H 02/20/25 11:22 BUN 50 mg/dL (8-23) H 02/20/25 11:22 Creatinine 1.6 mg/dL (0.5-0.9) H 02/20/25 11:22 GFR Calculation Not Reportable 02/20/25 11:22 Glucose 92 mg/dL (65-115) 02/20/25 11:22 Calculated Osmolality 305 mOsm/kg (285-295) H 02/20/25 11:22 Calcium 10.1 mg/dL (8.5-10.5) 02/20/25 11:22 Total Bilirubin 0.2 mg/dL (0.15-1.2) 02/20/25 11:22 AST 23 U/L (0-32) 02/20/25 11:22 ALT 7 U/L (0-33) 02/20/25 11:22 Alkaline Phosphatase 78 U/L (35-105) 02/20/25 11:22 Total Protein 7.0 g/dL (6.6-8.7) 02/20/25 11:22 Albumin 4.1 g/dL (3.5-5.2) 02/20/25 11:22 Globulin 2.9 g/dL (1.3-4.6) 02/20/25 11:22 No radiology studies performed this visit Discharge Plan Discharge Patient Disposition: Home Clinical Impression: Superficial thrombophlebitis Qualifiers: Superficial thrombophlebitis-Involved body area: upper extremity Laterality: left Qualified Code(s): I80.8 - Phlebitis and thrombophlebitis of other sites Condition: Stable Prescriptions: No Action sennosides-docusate sodium [Senna Plus] 8.6-50 mg tablet 1 tab-cap PO DAILY PRN (Reason: Constipation) fluticasone propionate [Flonase Allergy Relief] 50 mcg/actuation spray,suspension 2 spray intranasal .hs Rx Instructions: administer into each nostril levothyroxine 150 mcg capsule 150 mcg PO DAILY multivitamin Tablet 1 tab PO DAILY albuterol sulfate [ProAir HFA] 90 mcg/actuation HFA aerosol inhaler 2 puff INHALATION QID PRN (Reason: Wheezing) carbidopa-levodopa 50-200 mg tablet extended release 1 tab PO BID montelukast [Singulair] 10 mg tablet 10 mg PO BEDTIME cyclobenzaprine 10 mg tablet 10 mg PO BEDTIME zolpidem [Ambien] 5 mg tablet 2.5 mg PO BEDTIME PRN (Reason: Insomnia) gabapentin 300 mg capsule 300 mg PO BEDTIME fluticasone propion-salmeterol [Advair Diskus] 500-50 mcg/dose blister with device 1 inh inhalation BID chlorpheniramine maleate [Aller-Chlor] 4 mg tablet 4 mg PO .HS Rx Instructions: do not exceed 2 doses per 24 hrs pantoprazole 40 mg tablet,delayed release (DR/EC) 40 mg PO BID Qty: 90 1RF Glucosamine Complex-MSM Capsule 1 cap PO TID turmeric root extract 500 mg capsule 1,500 mg PO BID hydrocodone-acetaminophen 7.5-325 mg tablet 0.5 tab PO Q12H PRN (Reason: Pain) Patient Comments: at bedtime PRN for pain Entresto 24-26 mg tablet 1 tab PO DIRECTED Qty: 270 3RF Rx Instructions: Take 1 tab in the AM and 2 tabs in the PM bisoprolol fumarate 5 mg tablet 2.5 mg PO DAILY Qty: 45 1RF atorvastatin 40 mg tablet 40 mg PO DAILY Qty: 90 3RF diclofenac sodium 1 % gel See Rx Instructions .ROUTE .COMPLEX Qty: 300 3RF Dose Instruction: APPLY 4 GRAMS TO AFFECTED AREA FOUR TIMES A DAY NEEDED FOR JOINT PAIN Rx Instructions: APPLY 4 GRAMS TO AFFECTED AREA FOUR TIMES A DAY NEEDED FOR JOINT PAIN allopurinol 100 mg tablet 200 mg PO DAILY Qty: 180 0RF Rx Instructions: TAKE 2 TABLETS (200 MG) DAILY hydroxychloroquine [Plaquenil] 200 mg tablet 200 mg PO BID Qty: 135 1RF Rx Instructions: TAKE 2 TABLETS EVERY OTHER DAY ALTERNATING WITH 1 TABLET EVERY OTHER DAY torsemide 20 mg tablet 10 mg PO DAILY cetirizine [Zyrtec] 10 mg Tablet 10 mg PO DAILY PRN (Reason: Allergy Symptoms) Discharge Orders: Discharge ED (Routine); Ordered 02/20/25 Ordered By: James Domingo Referrals: Haider Cancino MD [Primary Care Provider, Family Practice] Discharge Diet: Usual diet Discharge Activity: Resume usual activity Patient Instructions: Superficial Thrombophlebitis (ED), Opioid Safety, Pain Management, Patient Portal & Gisela Instructions Activity Restrictions/Additional Instructions: Thank you for choosing [facility] for your healthcare needs today. It is very important that you follow up as instructed or that you return to the Emergency Department should you have concerns or if your condition changes or worsens in any way. You are seen in the emergency room with bruising on the left forearm and palpable nodules in a blood vessel. This likely your event represents a superficial thrombophlebitis. There is no intervention needed for the use of bruising resolve on its own by reabsorbing over the next 7 to 10 days. The thrombophlebitis will decrease in size and tenderness over the same time. You may still be able to palpate nodules after it has mostly resolved. You can apply moist heat to the area for comfort. Print Language: Persian Coding Level of Care Code ED Tight Barrel Inspector for Dudley Agarwal
== END 2025-02-20 11:45 | disposition home or self-care (01) ==
PROVIDERS: Emergency Provider Family Medicine; PCP Family Medicine
DX: I80.8 Phlebitis and thrombophlebitis of other sites (principal); E78.5 Hyperlipidemia, unspecified; I12.9 Hypertensive chronic kidney disease with stage 1 through stage 4 chronic kidney disease, or unspecified chronic kidney disease; N18.9 Chronic kidney disease, unspecified
CPT/HCPCS: 36415; 80053; 85025; 99283

== ENCOUNTER → 2025-03-03 10:16 | Outpatient (BNVA) | payer MEDICARE, OTHER, SELFPAY | PROVIDERS: PCP Family Medicine; Visit Provider Nurse Practitioner Family | DX: I13.0 Hypertensive heart and chronic kidney disease with heart failure and stage 1 through stage 4 chronic kidney disease, or unspecified chronic kidney disease (principal); N18.9 Chronic kidney disease, unspecified; I50.22 Chronic systolic (congestive) heart failure; I35.0 Nonrheumatic aortic (valve) stenosis; I42.9 Cardiomyopathy, unspecified; I25.2 Old myocardial infarction | CPT/HCPCS: 99213 ==

== ENCOUNTER 2025-06-03 12:51 | Inpatient (IN) | payer MEDICARE, OTHER, SELFPAY ==
[2025-06-03] VITALS (10 sets, daily range): BP systolic 79–135; BP diastolic 41–79; PULSE 63–80; RESP 16–23; TEMP 36.6–36.7; O2SAT 90–98
--- NOTE | 2025-06-03 12:58 | ECG_ITS ---
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 Measurements Intervals [place] Rate: 67 P: 60 SD: 181 QRS: 55 QRSD: 135 T: 209 QT: 433 QTc: 458 Interpretive Statements SINUS RHYTHM INTRAVENTRICULAR CONDUCTION DELAY [130+ ms QRS DURATION] LOW VOLTAGE Compared to ECG 05/18/2023 11:04:54 VOLTAGE HAS DECREASED Electronically Signed On 06-04-2025 19:37:53 CDT by Tereso Gibson M.D. [email or web address]
--- NOTE | 2025-06-03 12:58 | XR_ITS ---
WS: [id number] Exam: XR chest 1V portable [id number] Date/Time of Exam: 06/03/2025 1:05 PM Reason For Exam: Weakness Comparison 04/11/2023. Lungs are clear and fully inflated. Mild cardiac enlargement unchanged. No pleural effusion. Bony structures are intact. Bilateral reverse shoulder prostheses noted. XR/XR chest 1V portable [id number] IMPRESSION: 1. No acute cardiopulmonary finding. Mild cardiac enlargement unchanged.
--- OUTSIDE RECORDS SUMMARY | 2025-06-03 13:00 | XMS_ITS | Clinical Summary ---
Author Organization [facility] Facility Address [address] [address] Care Team Providers Care Certified Adaptive Physical Educator Name Role Phone Haider Cancino MD Primary Care Provider [phone] Allergies Active Allergy Reactions Criticality Noted Date [...] and 1 mg in the evening. Active gabapentin (NEURONTIN) 300 MG capsule Take [...] % gel Four Times Daily 3 Active Wixela Inhub 500-50 MCG/ACT aerosol powder 4 Active Entresto 24-26 MG per tablet 1 tab am, 2 tab hs Active acetaminophen (TYLENOL) 500 MG tablet Take 1,000 mg by mouth every night Active estradiol (ESTRACE) 0.1 MG/GM vaginal cream initiation dosage:0.5 grams applied intra-vaginally daily for two weeks then 0.5 grams applied intra-vaginally on Sunday, Sunday and Sunday each week. 5 Active Active Problems Problem Noted Date Diagnosed Date Anemia 03/12/2025 Gout 09/09/2024 Chronic kidney disease, Stage IV (severe) 2021 Hyperuricemia 05/26/2022 Hypothyroidism 05/26/2022 Hyperlipidemia 05/26/2022 Essential (primary) hypertension 05/26/2022 Monoclonal gammopathy of undetermined significan ce (MGUS) 05/26/2022 Iron deficiency 05/26/2022 History of total knee arthroplasty 05/26/2019 Osteoarthritis 06/17/2018 Encounters Date Type Department Care Team Description 05/06/2025 Patient Outreach Domain [facility] [employer] [address] [facility] [address] [place] [address] Rosana Clark 03/17/2025 10:30 AM CDT Office Visit Done In :[facility] [address] [place] [phone] Margarita Han NP Monoclonal gammopathy of undetermined significance (MGUS) (Primary Dx); Hyperuricemia; 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, not otherwise specified; Essential (primary) hypertension; Chronic kidney disease, Stage IV (severe) (HCC); Anemia in chronic kidney disease 03/10/2025 Telephone Done In :[facility] [address] [place] [address] Marilyn Elder MA 03/09/2025 Orders Only [facility] [address] [place] [address] Margarita Han NP Chronic kidney disease, Stage IV (severe) (HCC); Monoclonal gammopathy of undetermined significance (MGUS) from Last 3 Months Family History Medical History Relation Comments Heart [...] Sign Reading Time Taken Comments Blood Pressure 90/52 03/17/2025 10:35 AM CDT Pulse 70 03/17/2025 10:35 AM CDT Temperature - - Respiratory Rate - - Oxygen Saturation 96% 09/09/2024 10:37 AM BUSINESS CONTINUITY DIRECTOR Inhaled Oxygen Concentration - - Weight 108 kg (237 lb) 03/17/2025 10:35 AM CDT Height 154.9 cm (5' 1 ) 03/17/2025 10:35 AM CDT Body Mass Index 44.78 03/17/2025 10:35 AM CDT Plan of Treatment Upcoming Encounters Date Type Department Care Team (Late st Contact Info) Description 09/16/2025 10:00 AM BUSINESS CONTINUITY DIRECTOR Office Visit [facility], [facility] [address] [place] [address] Margarita Han, MIKE [address] [phone] Health Maintenance Due Date Last Done Comments Pneumococcal Vaccine: 50+ Years (3 of 3 - PCV) 06/12/2019 06/12/2018, 05/07/2015 Influenza Vaccine (#1) 2025 4, 07/20/2022, 05/27/2020, Additional history exists Hepatitis B Vaccine Aged Out No longe r eligible based on patient's age to complete this topic Procedures Procedure Name Priority Date/Time Associated Diagnosis Comments VITAMIN D 25 HYDROXY Routine 03/10/2025 9:10 AM CDT Chronic kidney disease, Stage IV (severe) (HCC) Monoclonal gammopathy of undetermined significance (MGUS) PTH, INTACT Routine 03/10/2025 9:10 AM CDT Chronic kidney disease, Stage IV (severe) (HCC) Monoclonal gammopathy of undetermined significance (MGUS) URINE ALBUMIN / CREATININE RATIO Routine 03/10/2025 9:10 AM CDT Chronic kidney disease, Stage IV (severe) (HCC) Monoclonal gammopathy of undetermined significance (MGUS) CBC Routine 03/10/2025 9:10 AM CDT Chronic kidney disease, Stage IV (severe) (HCC) Monoclonal gammopathy of undetermined significance (MGUS) RENAL FUNCTION PANEL Routine 03/10/2025 9:10 AM CDT Chronic kidney disease, Stage IV (severe) (HCC) Monoclonal gammopathy of undetermined significance (MGUS) from Last 3 Months Results * Urine albumin / creatinine ratio (03/10/2025 9:10 AM CDT) Creatinine, Ur 91 20 - 275 mg/dL [facility] Urine Microalbumin 1.9 See Note: mg/dL [facility] Comment: Reference Range: Reference Range Not established Microalb/Creat Ratio 21 <30 mg/g creat [facility] Comment: The ADA defines abnormalities in albumin excretion as follows: Albuminuria Category Result (mg/g creatinine) Normal to Mildly increased <30 Moderately increased 30-299 Severely increased > OR = 300 The ADA recommends that at least two of three specimens collected within a 3-6 month period be abnormal before considering a patient to be within a diagnostic category. Urine specimen (specimen) Urine specimen obtained by clean catch procedure / Unknown 03/10/2025 9:10 AM CDT 03/10/2025 9:10 AM CDT Narrative Resulting Agency Comment Performing Organization Information: Site ID: MARGARET Name: [facility] Address: [address] [address] Director: Calvin Noyola MD Margarita Han NP LAB URINE ORDERABLES Final Resu lt Performing Organization Address City/State/[facility] de Phone Number [facility] [employer] [address] [place] [address] * Vit D 25 hydroxy (03/10/2025 9:10 AM CDT) Vitamin D, 25-OH, Total, IA 61 30 - 100 ng/mL [facility] Comment: Vitamin D Status 25-OH Vitamin D: Deficiency: <20 ng/mL Insufficiency: 20 - 29 ng/mL Optimal: > or = 30 ng/mL For 25-OH Vitamin D testing on patients on D2-supplementation and patients for whom quantitation of D2 and D3 fractions is required, the Quest[facility](TM) 25-OH VIT D, (D2,D3), LC/MS/MS is recommended: order code [id number] (patients >2yrs). See Note 1 Note 1 For additional information, please refer to http://education.Toolmeet/faq/PQU620 (This link is being provided for informational/ educational purposes only.) Blood specimen (specimen) Venous blood / Unknown 03/10/2025 9:10 AM CDT 03/10/2025 9:10 AM CDT Narrative Resulting Agency Comment Performing Organization Information: Site ID: [place] Name: [facility] Address: [address] [place] [id number] Director: Calvin Noyola MD Margarita Han NP LAB BLOOD ORDERABLES Final Resu Performing Organization Address [facility] Co de Phone Number [facility] [employer] [address] [place] [address] * (ABNORMAL) CBC (03/10/2025 9:10 AM CDT) Pathologist [facility] WBC 10.8 3.8 - 10.8 Thousand/u L [facility] RBC 2.90(L) 3.80 - 5.10 Million/uL [facility] Hemoglobin 9.7(L) 11.7 - 15.5 g/dL [facility] Hematocrit 30.4(L) 35.0 - 45.0 % [facility] MCV 104.8(H) 80.0 - 100.0 fL [facility] MCH 33.4(H) 27.0 - 33.0 pg [facility] MCHC 31.9(L) 32.0 - 36.0 g/dL [facility] Comment: For adults, a slight decrease in the calculated MCHC value (in the range of 30 to 32 g/dL) is most likely not clinically significant; however, it should be interpreted with caution in correlation with other red cell parameters and the patient's clinical condition. RDW 18.0(H) 11.0 - 15.0 % [facility] Platelets 347 140 - 400 Thousand/u L [facility] MPV 10.0 7.5 - 12.5 fL [facility] Blood specimen (specimen) Venous blood / Unknown 03/10/2025 9:10 AM CDT 03/10/2025 9:10 AM CDT Narrative Resulting Agency Comment Performing Organization Information: Site ID: [place] Name: [facility] Address: [id number] [place] [phone] Director: Calvin Noyola MD Margarita Han NP LAB BLOOD ORDERABLES Final Resu lt [facility] [employer] [address] [place] [phone] * PTH, intact (03/10/2025 9:10 AM CDT) Parathyroid Hormone, Intact 51 16 - 77 pg/mL [facility] Comment: Interpretive Guide Intact PTH Calcium ------- Normal Parathyroid Normal Normal Hypoparathyroidism Low or Low Normal Low Hyperparathyroidism Primary Normal or High High Secondary High Normal or Low Tertiary High High Non-Parathyroid Hypercalcemia Low or Low Normal High Blood specimen (specimen) Venous blood / Unknown 03/10/2025 9:10 AM CDT 03/10/2025 9:10 AM CDT Narrative Resulting Agency Comment Performing Organization Information: Site ID: MARGARET Name: [facility] Address: [address] [address] Director: Calvin Noyola MD Margarita Han WINDOWS ADMIN LAB BLOOD ORDERABLES Final Resu lt [facility] [place] [address] * (ABNORMAL) Renal function panel (03/10/2025 9:10 AM CDT) Glucose 91 65 - 99 mg/dL [facility] Comment: Fasting reference interval BUN 63(H) 7 - 25 mg/dL [facility] Creatinine 1.75(H) 0.60 - 1.00 mg/dL [facility] eGFR CKD-EPI CR 2020 30(L) > OR = 60 mL/min/1.7 3m2 [facility] BUN/Creatinine Ratio 36(H) 6 - 22 (calc) [facility] Sodium 140 135 - 146 mmol/L [facility] Potassium 4.6 3.5 - 5.3 mmol/L [facility] Chloride 108 98 - 110 mmol/L [facility] Bicarbonate (CO2) 22 20 - 32 mmol/L [facility] Calcium 9.8 8.6 - 10.4 mg/dL [facility] Phosphorus 5.0(H) 2.1 - 4.3 mg/dL [facility] Albumin 3.9 3.6 - 5.1 g/dL [facility] Blood specimen (specimen) Venous blood / Unknown 03/10/2025 9:10 AM CDT 03/10/2025 9:10 AM CDT Narrative Resulting Agency Comment Performing Organization Information: Site ID: MARGARET Name: [facility] Address: [address] [address] Director: Calvin Noyola MD Margarita Han WINDOWS ADMIN LAB BLOOD ORDERABLES Final Resu lt [facility] [address] [phone] from Last 3 Months Insurance Medicare [facility] [place] Care Teams Certified Adaptive Physical Educator Relationship Specialty Start Date End Date Haider Cancino MD [address] [place] [phone] PCP - General Family Medicine 09/09/24
--- OUTSIDE RECORDS SUMMARY | 2025-06-03 13:00 | XMS_ITS | Data Portability ---
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 HAIDER CANCINO Primary Care Provider Assessment Encounter Date Assessment Date Assessment LastModified by Organization Details LastModified Time 02/11/2025 02/11/2025 she will see cardiology in december [id number] Not available 02/11/2025 11:58:11 Plan of Treatment Reminders Order Date Submit Date Provider Last Modified By Organization Details Last Modified Time Details Appointments OFFICE VISIT MJ 2025 10:00A M Haider Cancino MD Not available Not available Not available Lab CBC 2024 025 [place], [address] [facility], [place], [address], 02/04/2025 13:27:46 CMP, serum or plasma 2024 025 [facility], [address], [address], [place], [address], 02/04/2025 14:29:36 CMP, serum or plasma 2024 025 [facility], [address], [address], [place], [address], 08/14/2024 12:13:41 CBC 2024 025 [facility], [address] [place] [address] Ave, [address], [place], [address], 08/14/2024 11:38:18 periphera l blood smear 2024 025 [place] [address] [facility], [address], [place], [address], 08/21/2024 09:40:07 kappa light chains free/de jesus da light chains free, ratio, urine 2024 025 [place] [facility], [address] [place] [address], [address], [place], [address], 08/18/2024 20:27:41 kappa + lambda light chains, free + ratio, quantitat anne, serum 2024 025 [place] [facility], [address] [place] [address] 248, [address], [place], [id number], 08/18/2024 20:27:42 spep + immunoglo bulins, serum 2024 025 [place] [address] [facility], [address] [place] [address], [address], [place], [id number], 08/21/2024 09:40:07 Referral ophthalmo logist referral [email or web address] [place] [address] [facility], [address] , [place], [address], 08/19/2024 10:45:11 Procedures None recorded. Surgeries None recorded. Imaging XR, clavicle - bilateral [email or web address] ([facility]), [address] [place] [address], [place], [address], 02/11/2025 14:00:31 Medication Orders lidocaine 5 % topical patch 2024 025 [facility], [address] [place] [address], [address], 01/05/2025 12:56:25 zolpidem 5 mg tablet 2024 025 [facility], [address] [place] [address], [address], 01/05/2025 12:56:33 albuterol sulfate HFA 90 mcg/actua tion aerosol inhaler 2024 025 [facility], [address] [place] [address], [address], 01/05/2025 12:56:24 estradiol 0.01% (0.1 mg/gram) vaginal cream 2024 025 [facility], [address] [place] [address], [address], 01/05/2025 13:10:13 Advair Diskus 500 mcg-50 mcg/dose powder for inhalatio n 2024 025 [facility], [address] [place] [address], [address], 01/05/2025 12:56:24 Synthroid 150 mcg tablet 2024 025 [id number] [facility], [address] [place] [address], [address], 02/18/2025 18:23:47 gabapenti n 300 mg capsule 2024 025 [facility] [place], [address] [place] [address], [address], 03/30/2025 14:01:43 prednison e 20 mg tablet 2024 025 [facility] [place], [address] [place] [address], [address], 01/05/2025 12:48:48 azithromy wilfredo 250 mg tablet 2024 025 [facility] [place], [facility] [place], [address], 01/05/2025 12:48:47 venlafaxi ne 37.5 mg tablet 2024 025 [facility], [facility] [place], [address], 01/05/2025 12:48:47 Patient TargetsNo targets recorded. Patient InstructionsNo instructions recorded. 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 1, [place], [address], 08/14/2024 11:38:18 08/14/1908/14/2024 CBC RBC 2.96 x10 3.50-5 .50 low Not Available [facility] [place] [address] [facility] 1, [place], [address], 08/14/2024 11:38:18 08/14/19 25 08/14/2024 CBC HGB 10.5 g/dL 12.0-1 6.0 low Not Available [facility] [address] [facility] 1, [place], [address], 08/14/2024 11:38:18 08/14/19 25 08/14/2024 CBC HCT 31.2 % 37.0-4 7.0 low Not Available [facility] [place] [facility] [address] [facility] 1, [place], [address], 08/14/2024 11:38:18 08/14/19 25 08/14/2024 CBC MCV 105.4 fL 80.0-9 9.9 high Not Available [facility] [place] [address] [facility] 1, [place], [address], 08/14/2024 11:38:18 08/14/19 25 08/14/2024 CBC MCH 35.5 pg 27.0-3 2.0 high Not Available [facility] [place] [address] [facility] 1, [place], [address], 08/14/2024 11:38:18 08/14/1908/14/2024 CBC MCHC 33.7 g/dL 32.0-3 6.0 Not Available [facility] [place] [address] [facility] 1, [place], [address], 08/14/2024 11:38:18 08/14/1908/14/2024 CBC RDW 14.8 % 11.5-1 4.5 high Not Available [facility] [place] [address] [address], [place], [address], 08/14/2024 11:38:18 08/14/1908/14/2024 CBC plt 258.1 x10 140.0- 451.0 Not Available [facility] [place] [address] [facility], [place], [address], 08/14/2024 11:38:18 08/14/1908/14/2024 CBC lymphocytes % 12.4 % 20.0-5 0.0 low Not Available [facility] [place] [facility] [address] [facility] [address] [facility], [place], [address], 08/14/2024 11:38:18 08/14/1908/14/2024 CBC granulcytes % 77.9 % 30.0-7 0.0 high Not Available [facility] [place] [facility] [address] [facility] [address] [facility], [place], [address], 08/14/2024 11:38:18 08/14/19 25 08/14/2024 CBC monocytes % 7.4 % 2.0-16 .0 Not Available [facility] [address] [facility] 1, [place], [address], 08/14/2024 11:38:18 08/14/19 25 08/14/2024 CBC granulcytes# 8.1 x10 Not Khushi ilable [facility] [address] [place] [address] [facility] 1, [place], [address], 08/14/2024 11:38:18 08/14/19 25 08/14/2024 CBC lymphocytes # 1.3 x10 Not Available [facility] [address] [address], [place], [address], 08/14/2024 11:38:18 08/14/19 25 08/14/2024 CBC monocytes # 0.8 x10 Not Avai lable [facility] [address] [place] [facility], [place], [address], 08/14/2024 11:38:18 08/14/19 25 08/14/2024 CMP (FEMA LE) glucose 89.0 mg/dL 60.0-9 9.0 Not Available [facility] [address] [facility], [place], [address], 08/14/2024 12:13:41 08/14/19 25 08/14/2024 CMP (FEMA LE) BUN (blood urea nitrogen) 36.0 mg/dL 10.0-2 6.0 high Not Available [facility] [facility] 1, [place], [address], 08/14/2024 12:13:41 08/14/19 25 08/14/2024 CMP (FEMA LE) creatinine (serum) 1.3 mg/dL 0.4-1. 5 Not Available [facility] [place] [facility] [address] [facility] 1, [place], [address], 08/14/2024 12:13:41 08/14/19 25 08/14/2024 CMP (FEMA LE) BUN/creatini ne ratio 27.69 ratio Not Available [facility] [address] [facility] 1, [place], [address], 08/14/2024 12:13:41 08/14/19 25 08/14/2024 CMP (FEMA LE) eGFR calculated 42.3 Not Available [facility] [address] [facility] 1, [place], [address], 08/14/2024 12:13:41 08/14/19 25 08/14/2024 CMP (FEMA LE) total protein 6.9 g/dL 6.0-8. 5 Not Available [facility] [place] [facility] [address] [facility], [place], [address], 08/14/2024 12:13:41 08/14/19 25 08/14/2024 CMP (FEMA LE) total bilirubin 0.4 mg/dL 0.2-1. 3 Not Available [facility] [place] [address] [place] [facility] 1, [place], [address], 08/14/2024 12:13:41 08/14/19 25 08/14/2024 CMP (FEMA LE) albumin 4.6 g/dL 3.5-5. 5 Not Available [facility] [place] [address] [place] [address] [facility] 1, [place], [address], 08/14/2024 12:13:41 08/14/19 25 08/14/2024 CMP (FEMA LE) globulin 2.[address] [facility] [address] [facility] [address]elyn [facility] 1, [place], [address], 08/14/2024 12:13:41 08/14/19 25 08/14/2024 CMP (FEMA LE) AST (SGOT) 32.0 U/L 0.0-46 .0 Not Available [facility] [place] [facility] [address] [facility] 1, [place], [address], 08/14/2024 12:13:41 08/14/19 25 08/14/2024 CMP (FEMA LE) altv (SGPT) 22.0 U/L 13.0-6 9.0 normal Not Available [facility] [place] [address] [place] [facility] 1, [place], [address], 08/14/2024 12:13:41 08/14/19 25 08/14/2024 CMP (FEMA LE) A/G ratio 2.0 ratio Not Available [facility] [address] [facility] 1, [place], [address], 08/14/2024 12:13:41 08/14/19 25 08/14/2024 CMP (FEMA LE) ALP phos 86.0 U/L 30.0-1 40.0 normal Not Available [facility] [place] [address] [place] [facility] 1, [place], [address], 08/14/2024 12:13:41 08/14/19 25 08/14/2024 CMP (FEMA LE) calcium 10.3 mg/dL 8.4-10 .5 Not Available [facility] [place] [address] [place] [facility] 1, [place], [address], 08/14/2024 12:13:41 08/14/19 25 08/14/2024 CMP (FEMA LE) sodium 141.0 mmol/ L 136.0- 145.0 Not Available [facility] [address] [facility] 1, [place], [address], 08/14/2024 12:13:41 08/14/19 25 08/14/2024 CMP (FEMA LE) potassium 4.9 mmol/ L 3.5-5. 1 Not Available [facility] [place] [facility] [address] [place] [facility] 1, [place], [address], 08/14/2024 12:13:41 08/14/19 25 08/14/2024 CMP (FEMA LE) chloride 106.0 mmol/ L 98.0-1 10.0 normal Not Available [facility] [place] [facility] [address] [facility] 1, [place], [address], 08/14/2024 12:13:41 08/14/19 25 08/14/2024 CMP (FEMA LE) C02 28.0 mmol/ L 22.0-3 1.0 Not Available [facility] [address] [facility] 1, [place], [address], 08/14/2024 12:13:41 08/14/19 25 08/14/2024 CMP (FEMA LE) anion gap 7.0 calc Not Available [facility] [address] [facility] 1, [place], [address], 08/14/2024 12:13:41 08/14/19 25 08/14/2024 CMP (FEMA LE) osmolality 298.5 calc Not Available [facility] [address] [address], [place], [address], 08/14/2024 12:13:41 08/14/19 25 08/18/2024 PROTE IN, TOTAL AND PROTE IN ELECT ROPHO RESIS protein, total 6.5 g/dL 6.1-8. 1 normal Not Available [facility] [address] [place], [address], 08/18/2024 20:27:39 08/14/19 25 08/18/2024 PROTE IN, TOTAL AND PROTE IN ELECT ROPHO RESIS albumin 4.0 g/dL 3.8-4. 8 normal Not Available [address], [address], 08/18/2024 20:27:39 08/14/19 25 08/18/2024 PROTE IN, TOTAL AND PROTE IN ELECT ROPHO RESIS alpha 1 globulin 0.4 g/dL 0.2-0. 3 high Not Available [address], [address], 08/18/2024 20:27:39 08/14/19 25 08/18/2024 PROTE IN, TOTAL AND PROTE IN ELECT ROPHO RESIS alpha 2 globulin 0.9 g/dL 0.5-0. 9 normal Not Available [address], [address], 08/18/2024 20:27:39 08/14/19 25 08/18/2024 PROTE IN, TOTAL AND PROTE IN ELECT ROPHO RESIS beta 1 globulin 0.4 g/dL 0.4-0. 6 normal Not Available [address], [address], 08/18/2024 20:27:39 08/14/19 25 08/18/2024 PROTE IN, TOTAL AND PROTE IN ELECT ROPHO RESIS beta 2 globulin 0.3 g/dL 0.2-0. 5 normal Not Available [address], [address], 08/18/2024 20:27:39 08/14/19 25 08/18/2024 PROTE IN, TOTAL AND PROTE IN ELECT ROPHO RESIS gamma globulin 0.4 g/dL 0.8-1. 7 low Not Available [address], [address], 08/18/2024 20:27:39 08/14/19 25 08/18/2024 PROTE IN, TOTAL AND PROTE IN ELECT ROPHO RESIS abnormal protein band 1 0.1 g/dL none detect ed high Not Available [address], [address], 08/18/2024 20:27:39 08/14/19 25 08/18/2024 PROTE IN, TOTAL AND PROTE IN ELECT ROPHO RESIS interpretati on Poorl y defin ed band (poss ible M-spi ke) migra ting in the gamma regio n. Consi river serum immun ofixa tion to rule out a monoc lonal prote in if clini princess indic ated. Not Available [facility] [address] [address] [place], [address], 08/18/2024 20:27:39 08/14/19 25 08/18/2024 IMMUN OFIXA TION, SERUM ava interpretati on Normal patter n. No monoc lonal prote ins detec jared. Not Available [facility] [address] [place], [address], 08/18/2024 20:27:40 08/14/19 25 08/18/2024 KAPPA /DE JESUS DA LIGHT CHAIN , FREE W/RAT IO,RA ND URINE kappa light chain, free, urine 1.36 mg/L <=32.9 0 Not Available [facility] [address], [address], 08/18/2024 20:27:41 08/14/19 25 08/18/2024 KAPPA /DE JESUS DA LIGHT CHAIN , FREE W/RAT IO,RA ND URINE lambda light chain, free, urine 0.88 mg/L <=3.79 Not Available [facility] [address] [address] [place], [address], 08/18/2024 20:27:41 08/14/19 25 08/18/2024 KAPPA /DE JESUS DA LIGHT CHAIN , FREE W/RAT IO,RA ND URINE kappa/lambda , free ratio 1.55 <=8.69 If free light chain resul ts do not agree with other clini manav or labor atory findi ngs, repea t testi ng on a dilut ed sampl e to rule out antig en exces s may be reque sted. Not Available [facility] [address] [place], [address], 08/18/2024 20:27:41 08/14/1908/18/2024 PATHO LOGIS T REVIE W OF PERIP HERAL SMEAR pathologist review of peripheral smear LANDY WILLIAMYobani HARRISANTONIO AL: THE AUTOM ATED BERNABE HUTCHISON AL WAS REVIE WED AND WAS ACCEP JARED. THIS IS A PERIP HERAL BLOOD WITH MACRO CYTIC ANEMI A AND LEUKO CYTOS IS (NEUT ROPHI EUN). THE PLATE LETS ARE UNREM ARKAB LE. CLINI COPAT HOLOG IC CORRE LATIO N AND [facility] ER EVALU ATION ARE RECOM ELENA D CLINI PRINCESS INDIC ATED. (TLV/ DLP) THIS PERIP HERAL BLOOD SMEAR WAS REVIE WED BY: HAL RODRIGUES M.D. [facility] [address] [place] [address] CLIA ID NO. [id number] As of 2024, test code 833, Patho logis t Revie w of Perip heral Smear will be disco ntinu ed. Per previ ous commu nicat ion sent Jun 17, 2024, this [facility]at [facility] with stand otto proce sses as well as allow us to provi de more accur ate and timel y resul t repor ting. Pleas e consi river order ing the stand otto CBC with diffe wilder al/Pl atele t, test code 6399, for your testi ng needs . Not Available [facility] [address] [address], [place], [address], 08/18/2024 20:27:42 08/14/1908/18/2024 KAPPA /DE JESUS DA LIGHT CHAIN S FREE WITH RATIO , SERUM kappa light chain, free, serum 18.9 mg/L 3.3-19 .4 normal Not Available [facility] [address] [place], [address], 08/18/2024 20:27:42 08/14/19 25 08/18/2024 KAPPA /DE JESUS DA LIGHT CHAIN S FREE WITH RATIO , SERUM lambda light chain, free, serum 1131.1 mg/L 5.7-26 .3 high Not Available [facility] [address] [place], [address], 08/18/2024 20:27:42 08/14/19 25 08/18/2024 KAPPA /DE JESUS DA LIGHT CHAIN S FREE WITH RATIO , SERUM kappa/lambda light chains free with ratio, serum 0.02 0.26-1 .65 low Free kappa /de jesus da ratio in serum of flaquita l indiv idual s is 0.26- 1.65. Exces s produ ction of free kappa or lambd a chain s can alter this ratio . Monoc lonal free light chain s are found in serum of patie nts with multi ple myelo ma, Wal[place] nstro m's macro globu linem ia, mu-he palak chain disea se, prima ry amylo idosi s, light chain depos ition disea se, monoc lonal gammo rishabh of undet ermin ed signi fican ce, and lymph oprol ifera tive disor ders. Measu remen t of free light chain anila ntrat ion in serum is usefu l for diagn osis, progn osis, monit oring disea se activ ity and follo wing respo nse to thera py of these disor ders. Not Available [facility] [address] [place], [address], 08/18/2024 20:27:42 02/05/20 25 02/04/2025 CBC WBC 12.4 x10 4.0-10 .5 high Not Available [facility] [address] [place] [facility], [place], [address], 02/04/2025 13:27:46 02/05/20 25 02/04/2025 CBC RBC 3.15 x10 3.50-5 .50 low Not Available [facility] [address] [facility] 1, [place], [address], 02/04/2025 13:27:46 02/05/20 25 02/04/2025 CBC HGB 10.5 g/dL 12.0-1 6.0 low Not Available [facility] [place] [address] [facility] 1, [place], [address], 02/04/2025 13:27:46 02/05/20 25 02/04/2025 CBC HCT 33.6 % 37.0-4 7.0 low Not Available [facility] [address] [facility] 1, [place], [address], 02/04/2025 13:27:46 02/05/20 25 02/04/2025 CBC MCV 106.6 fL 80.0-9 9.9 high Not Available [facility] [place] [address] [facility] 1, [place], [address], 02/04/2025 13:27:46 02/05/20 25 02/04/2025 CBC MCH 33.2 pg 27.0-3 2.0 high Not Available [facility] [address] [place] [address] [facility] 1, [place], [address], 02/04/2025 13:27:46 02/05/20 25 02/04/2025 CBC MCHC 31.2 g/dL 32.0-3 6.0 low Not Available [facility] [place] [address] [facility] 1, [place], [address], 02/04/2025 13:27:46 02/05/20 25 02/04/2025 CBC RDW 17.1 % 11.5-1 4.5 high Not Available [facility] [address] [facility] 1, [place], [address], 02/04/2025 13:27:46 02/05/20 25 02/04/2025 CBC plt 407.2 x10 140.0- 451.0 Not Available [facility] [address] [address], [place], [address], 02/04/2025 13:27:46 02/05/20 25 02/04/2025 CBC lymphocytes % 12.9 % 20.0-5 0.0 low Not Available [facility] [address] [address], [place], [address], 02/04/2025 13:27:46 02/05/20 25 02/04/2025 CBC granulcytes % 75.3 % 30.0-7 0.0 high Not Available [facility] [address] [address], [place], [address], 02/04/2025 13:27:46 02/05/20 25 02/04/2025 CBC monocytes % 8.7 % 2.0-16 .0 Not Available [facility] [address] [address], [place], [address], 02/04/2025 13:27:46 02/05/20 25 02/04/2025 CBC granulcytes# 9.3 x10 Not Khushi ilable [facility] [address] [address], [place], [address], 02/04/2025 13:27:46 02/05/20 25 02/04/2025 CBC lymphocytes # 1.6 x10 Not Available [facility] [address] [address], [place], [address], 02/04/2025 13:27:46 02/05/20 25 02/04/2025 CBC monocytes # 1.1 x10 Not Avai lable [facility] [address] [place] [address] [address], [place], [address], 02/04/2025 13:27:46 02/05/20 25 02/04/2025 CMP (FEMA LE) glucose 99.0 mg/dL 60.0-9 9.0 Not Available [facility] [address] [facility] 1, [place], [address], 02/04/2025 14:29:36 02/05/20 25 02/04/2025 CMP (FEMA LE) BUN (blood urea nitrogen) 46.0 mg/dL 10.0-2 6.0 high Not Available [facility] [address] [facility] 1, [place], [address], 02/04/2025 14:29:36 02/05/20 25 02/04/2025 CMP (FEMA LE) creatinine (serum) 1.4 mg/dL 0.4-1. 5 Not Available [facility] [address] [facility] 1, [place], [address], 02/04/2025 14:29:36 02/05/20 25 02/04/2025 CMP (FEMA LE) BUN/creatini ne ratio 32.86 ratio Not Available [facility] [address] [address], [place], [address], 02/04/2025 14:29:36 02/05/20 25 02/04/2025 CMP (FEMA LE) eGFR calculated 38.8 Not Available [facility] [address] [address], [place], [address], 02/04/2025 14:29:36 02/05/20 25 02/04/2025 CMP (FEMA LE) total protein 7.0 g/dL 6.0-8. 5 Not Available [facility] [address] [address], [place], [address], 02/04/2025 14:29:36 02/05/20 25 02/04/2025 CMP (FEMA LE) total bilirubin 0.5 mg/dL 0.2-1. 3 Not Available [facility] [address] [address], [place], [address], 02/04/2025 14:29:36 02/05/20 25 02/04/2025 CMP (FEMA LE) albumin 4.3 g/dL 3.5-5. 5 Not Available [facility] [place] [address] [facility] 1, [place], [address], 02/04/2025 14:29:36 02/05/20 25 02/04/2025 CMP (FEMA LE) globulin 2.[address] [facility] [address] [place] [address] [facility], [place], [address], 02/04/2025 14:29:36 02/05/20 25 02/04/2025 CMP (FEMA LE) AST (SGOT) 33.0 U/L 0.0-46 .0 Not Available [facility] [place] [address] [facility] 1, [place], [address], 02/04/2025 14:29:36 02/05/20 25 02/04/2025 CMP (FEMA LE) altv (SGPT) 12.0 U/L 13.0-6 9.0 abnormal Not Available [facility] [address] [facility] 1, [place], [address], 02/04/2025 14:29:36 02/05/20 25 02/04/2025 CMP (FEMA LE) A/G ratio 1.6 ratio Not Available [facility] [address] [place] [address] [facility] 1, [place], [address], 02/04/2025 14:29:36 02/05/20 25 02/04/2025 CMP (FEMA LE) ALP phos 82.0 U/L 30.0-1 40.0 normal Not Available [facility] [address] [place] [address] [facility] 1, [place], [address], 02/04/2025 14:29:36 02/05/20 25 02/04/2025 CMP (FEMA LE) calcium 10.2 mg/dL 8.4-10 .5 Not Available [facility] [address] [facility] 1, [place], [address], 02/04/2025 14:29:36 02/05/20 25 02/04/2025 CMP (FEMA LE) sodium 142.0 mmol/ L 136.0- 145.0 Not Available [facility] [place] [address] [facility] 1, [place], [address], 02/04/2025 14:29:36 02/05/20 25 02/04/2025 CMP (FEMA LE) potassium 4.5 mmol/ L 3.5-5. 1 Not Available [facility] [address] [facility] [address], [place], [address], 02/04/2025 14:29:36 02/05/20 25 02/04/2025 CMP (FEMA LE) chloride 109.0 mmol/ L 98.0-1 10.0 normal Not Available [facility] [address] [facility] [address], [place], [address], 02/04/2025 14:29:36 02/05/20 25 02/04/2025 CMP (FEMA LE) C02 21.0 mmol/ L 22.0-3 1.0 low Not Available [facility] [address] [facility] [address], [place], [address], 02/04/2025 14:29:36 02/05/20 25 02/04/2025 CMP (FEMA LE) anion gap 12.0 calc Not Available [facility] [address] [facility] [address], [place], [address], 02/04/2025 14:29:36 02/05/20 25 02/04/2025 CMP (FEMA LE) osmolality 304.3 calc Not Available [facility] [address], [place], [address], 02/04/2025 14:29:36 02/05/2002/05/2025 PERIP HERAL BLOOD SMEAR REVIE W peripheral blood smear review Macro cytos is 2 + Polyc hroma neftali 1 + Howel l-Jol ly dav s 1 + Poiki locyt osis 1 + Revie w of the perip heral smear revea ls incre ased numbe rs of plate lets. Revie w of perip heral smear confi yusef autom ated resul ts. Not Available [facility] [address] [address] [place], [address], 02/05/2025 14:47:57 02/05/2002/12/2025 PROTE IN, TOTAL AND PROTE IN ELECT ROPHO RESIS WITH IMMUN OFIXA TION protein, total 6.2 g/dL 6.1-8. 1 normal Not Available [address] [address] [place], [address], 02/12/2025 17:17:16 02/05/20 25 02/12/2025 PROTE IN, TOTAL AND PROTE IN ELECT ROPHO RESIS WITH IMMUN OFIXA TION ava interpretati on Flaquita rao rn. No monoc lonal prote ins detec jared. Not Available [facility] [address] [address] [place], [address], 02/12/2025 17:17:16 02/05/20 25 02/12/2025 PROTE IN, TOTAL AND PROTE IN ELECT ROPHO RESIS WITH IMMUN OFIXA TION albumin 3.5 g/dL 3.8-4. 8 low Not Available [facility] [address] [address] [place], [address], 02/12/2025 17:17:16 02/05/20 25 02/12/2025 PROTE IN, TOTAL AND PROTE IN ELECT ROPHO RESIS WITH IMMUN OFIXA TION alpha 1 globulin 0.5 g/dL 0.2-0. 3 high Not Available [facility] [address] [address] [address], [place], [address], 02/12/2025 17:17:16 02/05/20 25 02/12/2025 PROTE IN, TOTAL AND PROTE IN ELECT ROPHO RESIS WITH IMMUN OFIXA TION alpha 2 globulin 1.0 g/dL 0.5-0. 9 high Not Available [address], [address], 02/12/2025 17:17:16 02/05/20 25 02/12/2025 PROTE IN, TOTAL AND PROTE IN ELECT ROPHO RESIS WITH IMMUN OFIXA TION beta 1 globulin 0.4 g/dL 0.4-0. 6 normal Not Available [address], [address], 02/12/2025 17:17:16 02/05/20 25 02/12/2025 PROTE IN, TOTAL AND PROTE IN ELECT ROPHO RESIS WITH IMMUN OFIXA TION beta 2 globulin 0.4 g/dL 0.2-0. 5 normal Not Available [facility] [address], [address], 02/12/2025 17:17:16 02/05/20 25 02/12/2025 PROTE IN, TOTAL AND PROTE IN ELECT ROPHO RESIS WITH IMMUN OFIXA TION gamma globulin 0.4 g/dL 0.8-1. 7 low Not Available [address], [address], 02/12/2025 17:17:16 02/05/20 25 02/12/2025 PROTE IN, TOTAL AND PROTE IN ELECT ROPHO RESIS WITH IMMUN OFIXA TION abnormal protein band 1 0.1 g/dL none detect ed high Not Available [address], [address], 02/12/2025 17:17:16 02/05/20 25 02/12/2025 PROTE IN, TOTAL AND PROTE IN ELECT ROPHO RESIS WITH IMMUN OFIXA TION interpretati on Poorl y defin ed band (poss ible M-spi ke) migra ting in the gamma regio n. Consi river serum immun ofixa tion to rule out a monoc lonal prote in if clini princess indic ated. Not Available [address], [address], 02/12/2025 17:17:16 02/05/2002/12/2025 LD LD 249 U/L 120-25 0 normal Not Available [facility] [address], [address], 02/12/2025 17:17:17 02/05/20 25 02/12/2025 URIC ACID uric acid 5.7 mg/dL 2.5-7. 0 normal Thera gurmeet covarrubias t for gout patie nts: <6.0 mg/dL Not Available [address], [address], 02/12/2025 17:17:17 02/05/20 25 02/12/2025 KAPPA /DE JESUS DA LIGHT CHAIN , FREE W/RAT IO,RA ND URINE kappa light chain, free, urine 2.91 mg/L <=32.9 0 Not Available [address], [address], 02/12/2025 17:17:18 02/05/2002/12/2025 KAPPA /DE JESUS DA LIGHT CHAIN , FREE W/RAT IO,RA ND URINE lambda light chain, free, urine 1.61 mg/L <=3.79 Not Available [address], [address], 02/12/2025 17:17:18 02/05/20 25 02/12/2025 KAPPA /DE JESUS DA LIGHT CHAIN , FREE W/RAT IO,RA ND URINE kappa/lambda , free ratio 1.81 <=8.69 If free light chain resul ts do not agree with other clini manav or labor atory findi ngs, repea t testi ng on a dilut ed sampl e to rule out antig en exces s may be reque sted. Not Available [address] [address] [place], [address], 02/12/2025 17:17:18 02/05/20 25 02/12/2025 IMMUN OFIXA TION, URINE ava interpretati on Flaquita l jalen stock. No monoc lonal prote ins detec jared. Not Available [facility] [address] [address] [place], [address], 02/12/2025 17:17:18 02/05/20 25 02/12/2025 KAPPA /DE JESUS DA LIGHT CHAIN S FREE WITH RATIO , SERUM kappa light chain, free, serum 21.9 mg/L 3.3-19 .4 high Not Available [facility] [address] [address] [place], [address], 02/12/2025 17:17:19 02/05/20 25 02/12/2025 KAPPA /DE JESUS DA LIGHT CHAIN S FREE WITH RATIO , SERUM lambda light chain, free, serum 1292.4 mg/L 5.7-26 .3 high Not Available [facility] [address] [address] [place], [address], 02/12/2025 17:17:19 02/05/20 25 02/12/2025 KAPPA /DE JESUS DA LIGHT CHAIN S FREE WITH RATIO , SERUM kappa/lambda light chains free with ratio, serum 0.02 0.26-1 .65 low Free kappa /de jesus da ratio in serum of flaquita l indiv idual s is 0.26- 1.65. Exces s produ ction of free kappa or lambd a chain s can alter this ratio . Monoc lonal free light chain s are found in serum of patie nts with multi ple myelo ma, Walde nstro m's macro globu linem ia, mu-he palak chain disea se, prima ry amylo idosi s, light chain depos ition disea se, monoc lonal gammo rishabh of undet ermin ed signi fican ce, and lymph oprol ifera tive disor ders. Measu remen t of free light chain anila ntrat ion in serum is usefu l for diagn osis, progn osis, monit oring disea se activ ity and follo wing respo nse to thera py of these disor ders. Not Available [address] [address] [place], [address], 02/12/2025 17:17:19 02/05/20 25 02/12/2025 PROTE IN, TOTAL AND PROTE IN [facility] MANNY ROJELIO MONTIEL URINE creatinine, random urine 33 mg/dL 20-275 normal Not Available [address] [address] [place], [address], 02/12/2025 17:17:20 02/05/20 25 02/12/2025 PROTE IN, TOTAL AND PROTE IN [facility] ROJELIO MONTIEL URINE protein/crea tinine ratio 152 mg/g_ creat 24-184 normal Not Available [address] [address] [place], [address], 02/12/2025 17:17:20 02/05/20 25 02/12/2025 PROTE IN, TOTAL AND PROTE IN [facility] ROJELIO COHN URINE protein/crea tinine ratio 0.152 mg/mg _crea t 0.024- 0.184 normal Not Available [address] [address] [place], [address], 02/12/2025 17:17:20 02/05/20 25 02/12/2025 PROTE IN, TOTAL AND PROTE IN [facility] MANNY JERRICA MONTIELO Jarad URINE protein, total, random ur 5 mg/dL 5-24 normal Not Available [address] [address] [place], [address], 02/12/2025 17:17:20 02/05/20 25 02/12/2025 PROTE IN, TOTAL AND PROTE IN ELECT ROJELIO COHN URINE albumin 100 % Not Available [address] [address] [place], [address], 02/12/2025 17:17:20 02/05/20 25 02/12/2025 PROTE IN, TOTAL AND PROTE IN ELECT ROJELIO COHN URINE urccf-5-pkpt ulins 0 % Not Available [address] [place], [address], 02/12/2025 17:17:20 02/05/20 25 02/12/2025 PROTE IN, TOTAL AND PROTE IN ELECT MANNY ROJELIO MONTIEL URINE mermb-5-drly ulins 0 % Not Available [address] [address] [place], [address], 02/12/2025 17:17:20 02/05/20 25 02/12/2025 PROTE IN, TOTAL AND PROTE IN [facility] ROJELIO MONTIEL URINE beta globulins 0 % Not Available [address] [place], [address], 02/12/2025 17:17:20 02/05/20 25 02/12/2025 PROTE IN, TOTAL AND PROTE IN [facility] ROJELIO COHN URINE gamma globulins 0 % Not Available [address] [place], [address], 02/12/2025 17:17:20 02/05/20 25 02/12/2025 PROTE IN, [facility] URINE interpretati on Agaro se formerly [facility] of urine revea ls album in. No abnor mal prote in is obser holley. Not Available [address], [address], 02/12/2025 17:17:20 10/24/19 25 10/20/2024 home sleep study No observ ation record ed. [email or web address] [place], [place] [address] [facility], [address], [place], [address], 10/27/2024 13:03:08 02/16/2002/11/2025 XR, clavi yonas No observ ation record ed. [address] [place], [address], 02/16/2025 10:52:56 02/16/2002/11/2025 XR, clavi yonas No observ ation record ed. [address] [place], [address], 02/16/2025 10:52:56 Result Notes None recorded. Problems Name Problem SNOMED Code Status Onset Date Resolution Date Notes Provider Name and Address Organization Details Recorded Time Neuropathy 946553284 Active 2022 CARLOS byrd [facility] 3 14:37:53 Hypothyroidis m 57206783 Active 2022 AIRAM byrd [facility] 5 09:10:07 Seasonal allergy 587552870 Active 2022 CARLOS byrd [facility] 3 14:39:17 Essential hypertension 44757197 Active 2022 AIRAM byrd [facility] 5 09:10:03 Persistent insomnia 184738076 Active 2022 CARLOS byrd [facility] 3 14:40:36 Insomnia 840359724 Active 2022 AIRAM byrd [facility] 5 09:10:11 Multiple myeloma in remission 27113731 Active 2022 CARLOS byrd [facility] 3 08:52:14 Parkinson's disease 60323814 Active 2022 AIRAM DOWNING null, [facility] 5 09:55:39 Chronic kidney disease stage 4 862134540 Active 2022 CARLOS LOUIE null, [facility] 3 08:52:36 Chronic systolic heart failure 215064699 Active 2022 AIRAM DOWNING null, [facility] 5 09:09:59 Moderate persistent asthma 020350642 Active 2023 AIRAM DOWNING null, [facility] 5 09:10:16 Neck pain 85007847 Active 2023 CARLOS LOUIE null, [facility] 4 08:37:48 Rheumatoid arthritis 35724395 Active 2024 AIRAM DOWNING null, [facility] 5 09:10:57 Anemia 762586964 Active 2024 AIRAM DOWNING null, [facility] 5 09:11:09 Chronic kidney disease 109953416 Active 2024 AIRAM DOWNING null, [facility] 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 5 10:35:16 Obstructive sleep apnea syndrome 13781152 Active 2024 AIRAM DOWNING null, [facility] 5 13:08:46 Exacerbation of moderate persistent asthma 406530383 Active 2024 Vazuqez Hightower MD [address] [place], [address] , [facility] 12:04:14 Cardiomyopath y 80631328 Active 2024 Haider Cancino MD [address] [place], [address] , [facility] 12:51:20 Notes:Some problems listed i n Documents: #[id number], #[id number] could not be added to this patient's chart. Please review these documents and add these problems to the patient's chart manually as needed. Problem Notes None recorded. Procedures Surgical History Date Name Laterality Status Provider Name and Address Organization Details Recorded Time 10/24/19 25 [facility] 12:12:25 08/06/19 21 lumbar spinal fusion completed [facility] 08/14/2024 10:31:49 left oophorectomy completed [facility] 08/14/2024 09:15:09 reverse prosthetic total [facility]14[facility]24 10:30:35 arthroscopy of left knee joint completed [facility] 08/14/2024 10:30:56 [facility] 09:16:39 [facility] 09:16:53 [facility] 08/14/2024 10:28:45 hysterectomy completed [facility] 08/14/2024 10:29:01 oophorectomy completed [facility] 08/14/2024 10:29:23 procedure on foot completed [facility] 08/14/2024 10:30:11 [facility] 08/14/2024 10:31:18 Carpal Tunnel Surgery completed Ashlee Stark [facility] 02/11/2025 11:31:31 Imaging Results None recorded. Procedure Notes None recorded. Medical Equipment None Reported. Allergies Allergen ID Allergen Name Allergen Category Reaction Reaction Severity Criticality Documentation Date Start Date Code Code System Note Provider Name and Address Organization Details Recorded Time 5188 Coreg medicatio n Not available Not available Not available 02/12/2023 58861 1 RxNorm CARLOS FISHER [facility] 3 14:05:48 88784 Betadine medicatio n other moderate low 03/03/2023 0 RxNorm React ion: blist ers Dorothy Carroll [facility] 4 10:01:16 59960 diltiazem Not available dyspnea severe high 03/03/2023 3443 RxNorm Dorothy Carroll [facility] 4 10:01:25 09458 verapamil hydrochlo ride medicatio n headache moderate low 03/03/202354283 8 RxNorm Dorothy Carroll [facility] 4 10:01:31 22544 Inderal medicatio n Not available Not available Not available 02/11/2025 21434 0 RxNorm Ashlee Stark [facility]. 11:27:06 Medications Name Sig Start Date Stop Date Status Note LastModified by Organization Details LastModified Time cyclobenz aprine 10 mg tablet TAKE 1 TABLET BY MOUTH THREE TIMES DAILY active Not Available Not Available No t Available amoxicill in 500 mg capsule prior to proceedu res 09/18 completed Not Available Not Available Not Available atorvasta tin 40 mg tablet active Not Available Not Available Not Available terbinafi ne HCl 1 % topical cream APPLY TO THE AFFECTED AREA(S) ON ear EVERY DAY 08/14 completed Not Available Not Available Not Available venlafaxi ne ER 75 mg capsule,e xtended release 24 hr TAKE 1 CAPSULE DAILY 08/14 completed Not Available Not Available Not Available Plaquenil 200 mg tablet alternat es 1 qd and bid every other day active Not Available Not Available No t Available ketoconaz ole 2 % shampoo 08/14 completed Not Available Not Available Not Available torsemide 20 mg tablet TAKE 3 TABLETS DAILY active 10mg once daily Not Available Not Available Not Available azithromy wilfredo 250 mg tablet TAKE 2 TABLETS BY MOUTH TODAY, THEN TAKE 1 TABLET DAILY ON DAYS 2-5 01/05 completed Not Available Not Available Not Available carbidopa 25 mg-levodo pa 250 mg tablet TAKE 1 TABLET THREE TIMES A DAY active Not Available Not Available No t Available hydrocodo ne 5 mg-acetam inophen 325 mg tablet TAKE 1 TABLET BY MOUTH EVERY 6 HOURS NEEDED FOR back pain active Not Available Not Available No t Available Synthroid 150 mcg tablet Take 1 tablet every day by oral route for 90 days. 2024 active cs/smf Not Available Not Available Not Avai lable prednison e 20 mg tablet TAKE 1 TABLET BY MOUTH EVERY DAY 01/05 completed Not Available Not Available Not Available prednison e 5 mg tablet daily active Not Available Not Available Not Available potassium chloride ER 10 mEq tablet,ex tended release TAKE 1 TABLET BY MOUTH EVERY DAY 08/14 completed Not Available Not Available Not Available allopurin ol 100 mg tablet TAKE 2 TABLETS BY MOUTH EVERY DAY active Not Available Not Available No t Available tramadol 50 mg tablet TAKE 1 TABLET BY MOUTH EVERY 8 HOURS NEEDED FOR PAIN for 7 days 08/14 completed Not Available Not Available Not Available bisoprolo l fumarate 5 mg tablet 0.5 tab daily. active Not Available Not Available No t Available potassium chloride ER 20 mEq tablet,ex tended release(p art/cryst ) TAKE 1 TABLET BY MOUTH TWICE DAILY 08/14 completed Not Available Not Available Not Available prednisol one acetate 1 % eye drops,priscilla pension instill 1 drop IN THE LEFT EYE FOUR TIMES DAILY AND IN THE RIGHT EYE TWICE DAILY FOR ONE MONTH 09/18 completed Not Available Not Available Not Available prednison e 2.5 mg tablet 09/18 completed Not Available Not Available Not Available pantopraz ole 40 mg tablet,de layed release TAKE 1 TABLET TWICE A DAY active Not Available Not Available No t Available venlafaxi ne 37.5 mg tablet take one twice daily for 2 weeks then 1/2 po bid for two weeks then disconti nue 01/05 completed Not Available Not Available Not Available lidocaine 5 % topical patch APPLY 1 PATCH BY TOPICAL ROUTE ONCE DAILY (MAY WEAR UP TO 12HOURS. ) 2024 active Not Available Not Available Not Avai lable Advair Diskus 500 mcg-50 mcg/dose powder for inhalatio n Inhale 1 puff twice a day by inhalati on route. 2024 active Not Available Not Available Not Avai lable gabapenti n 300 mg capsule Take 1 capsule every day by oral route at bedtime for 90 days. 2024 active Not Available Not Available Not Avai lable Astelin 137 mcg (0.1 %) nasal spray at bedtime 2018 active Not Available Not Available Not Avai lable monteluka st 10 mg tablet TAKE 1 TABLET AT BEDTIME 2024 active Not Available Not Available Not Avai lable mupirocin 2 % topical ointment active Not Available Not Available Not Available zolpidem 5 mg tablet Take 1 tablet every day by oral route. 2024 active Not Available Not Available Not Avai lable estradiol 0.01% (0.1 mg/gram) vaginal cream initiati on dosage:0 .5 grams applied intra-va ginally daily for two weeks then 0.5 grams applied intra-va ginally on Sunday, y and Sunday each week. 2024 active Not Available Not Available Not Avai lable zolpidem 10 mg tablet TAKE ONE TABLET BY MOUTH AT BEDTIME 02/12 completed Not Available Not Available Not Available albuterol sulfate HFA 90 mcg/actua tion aerosol inhaler USE 2 INHALATI ONS FOUR TIMES A DAY NEEDED 2024 active Not Available Not Available Not Avai lable ketoconaz ole 2 % topical cream 08/14 completed Not Available Not Available Not Available ondansetr on 4 mg disintegr ating tablet DISSOLVE ONE TABLET BY MOUTH EVERY 8 HOURS NEEDED FOR NAUSEA AND VOMITING FOR THREE DAYS 01/05 completed Not Available Not Available Not Available doxycycli ne hyclate 100 mg tablet TAKE 1 TABLET BY MOUTH TWICE DAILY for 10 days 02/10 completed Not Available Not Available Not Available valsartan 160 mg tablet 08/14 completed Not Available Not Available Not Available neomycin 3.5 mg/g-poly myxin B 10,000 unit/g-de xameth 0.1 % eye oint apply 1/4 INCH ON eyelid THREE TIMES DAILY STARTING DAY of procedur e and continue FOR 2-3 weeks 08/14 completed Not Available Not Available Not Available cyclobenz aprine 5 mg tablet TAKE 1 TABLET THREE TIMES A DAY 09/18 completed prn during the day Not Available Not Available Not Available carbidopa -levodopa three times daily 08/13 completed cs/smf; [address]; Recorded 06/26/20 22 11:58AM by Kourtney Louei RN (Authori zed through Liborio Iyer DO), Refill Request; Mail Order Quantity : 270 Tablet; Mail Order Days: 90 Days; Refill Quantity : 0; Not Available Not Available Not Available folic acid two times daily 01/05 completed Not Available Not Available Not Available iron once daily active Slow Fe Not Available Not Available No t Available Lortab as needed 08/14 completed Not Available Not Available Not Available Ambien at bedtime 08/13 completed Recorded 03/22/20 22 3:10PM by Liborio Iyer DO, Office Visit; Mail Order Quantity : 90 Tablet; Mail Order Days: 90 Days; Refill Quantity : 90; Tablet; Not Available Not Available Not Available mometason e 0.1 % topical solution active Not Available Not Available Not Available diclofena c 1 % topical gel 09/18 completed Not Available Not Available Not Available potassium chloride ER 20 mEq tablet,ex tended release Take 1 tablet twice a day by oral route for 90 days. 08/14 completed cs/smf Not Available Not Available Not Available Entresto 24 mg-26 mg tablet 1 daily active 1 am 2 pm Not Available Not Available Not Available Vitals Date Recorded Body height Body mass index (BMI) Body weight Body temperature Heart rate Oxygen saturation Oxygen saturation in Arterial blood by Pulse oximetry Systolic And Diastolic Provider Name and Address Organization Details Last Updated DateTime 5 154.94 cm 47.8 kg/m2 328544. 87 g 97.7 [degF] 63 /min 94 % 94 % 134/80 mm[Hg] [facility] 5 10:24:54 Date Recorded Body height Body mass index (BMI) Body weight Oxygen saturation Oxygen saturation in Arterial blood by Pulse oximetry Heart rate Respiratory rate Body temperature Systolic And Diastolic Provider Name and Address Organization Details Last Updated DateTime 5 154.94 cm 47.2 kg/m2 056079. 09 g 94 % 94 % 74 /min 16 /min 98.2 [degF] 148/90 mm[Hg] Liz Danieleflorentin [facility] 5 11:58:38 Date Recorded Body height Body mass index (BMI) Body weight Body temperature Heart rate Oxygen saturation Oxygen saturation in Arterial blood by Pulse oximetry Systolic And Diastolic Provider Name and Address Organization Details Last Updated DateTime 5 154.94 cm 47 kg/m2 695591. 5 g 97.4 [degF] 69 /min 97 % 97 % 128/74 mm[Hg] [facility] 5 12:18:36 Date Recorded Body height Body mass index (BMI) Body weight Oxygen saturation Oxygen saturation in Arterial blood by Pulse oximetry Heart rate Respiratory rate Body temperature Systolic And Diastolic Provider Name and Address Organization Details Last Updated DateTime 5 154.94 cm 43.6 kg/m2 414821. 84 g 97 % 97 % 80 /min 20 /min 97.4 [degF] 118/60 mm[Hg] Ashlee Stark [facility] 11:25:25 Social History Question Answer Notes LastModified by Organizat [employer] Details LastModified Time Tobacco Smoking Status Never Smoker [facility] 02/12/2023 14:10:05 Are You Blind Or Do You Have Difficulty Seeing? No [email or web address] Information not available 02/12/2023 Are You Deaf Or Do You Have Serious Difficulty Hearing? No [email or web address] Information not available 02/12/2023 What Was The Date Of Your Most Recent Tobacco Screening? 02/11/2025 Information not available 02/11/2025 Have You Recently Traveled Abroad? No [email or web address] Information not available 02/12/2023 Do You Have Difficulty Walking Or Climbing Stairs? No [email or web address] Information not available 02/12/2023 Sex: Unknown Functional Status Question Answer Note LastModified by Organizat ion Details LastModified Time Are you able to walk independently without assistance or assistive devices? YESWOREST [email or web address] Information not available 02/12/2023 Do you have difficulty doing errands alone? No [email or web address] Information not available 02/12/2023 Are you able to care for yourself independently? Yes [email or web address] Information not available 02/12/2023 Do you have difficulty dressing, bathing, grooming, or toileting? No [email or web address] Information not available 02/12/2023 Mental Status Question Answer Note LastModified by Organization D etails LastModified Time Do you have difficulty concentrating, remembering or making decisions? No [email or web address] Information no t available 02/12/2023 Family History Relationship Description Onset Age of this Age Resolved Age Notes LastModified by Organization Details LastModified Time Father Myocardial infarction [email or web address] Not available 04/2025 09:13:56 Father Hypertensive disorder [email or web address] Not available 08/14 09:14:09 Father Malignant neoplasm of urinary bladder [email or web address] Not available 2024 10:25:31 Father Cerebrovascu lar accident [email or web address] Not available 04/2025 10:25:50 Father Arthritis Not available 08/14/2024 10:26:32 Father Neuropathy Not availabl e 08/14/2024 10:26:41 Mother Hypertensive disorder [email or web address] Not available 08/14 09:14:09 Mother Congestive heart failure [email or web address] Not available 2024 10:26:03 Mother Malignant neoplasm of breast [email or web address] Not available 2024 10:26:16 Medical History No medical history recorded. Gynecological HistoryNo gynecological history recorded. Obstetrics History GPAL:G 0 P 0 0 0 0 Immunizations Vaccine Type Date Status Note Provider Nam e and Address Organization Details Recorded Time pneumococcal polysaccharide PPV23 5 completed Not Available [facility] 03/03/2023 02:37:11 Influenza, split virus, trivalent, preservative 5 completed Not Available [facility] 03/03/2023 02:37:11 pneumococcal polysaccharide PPV23 8 completed Not Available [facility] 03/03/2023 02:37:11 Influenza, split virus, trivalent, preservative 8 completed Not Available [facility] 03/03/2023 02:37:11 Influenza, split virus, trivalent, preservative 7 completed Not Available [facility] [facility] 03/03/2023 02:37:12 zoster recombinant 0 completed Dorothy byrd [facility] 04/11/2024 10:01:07 Influenza, high-dose, quadrivalent, PF 1 completed Dorothy byrd [facility] 04/11/2024 10:01:07 COVID-19, mRNA, LNP-S, PF, 100 mcg/0.5mL dose or 50 mcg/0.25mL dose 1 completed Dorothy byrd [facility] 04/11/2024 10:01:07 COVID-19, mRNA, LNP-S, PF, 100 mcg/0.5mL dose or 50 mcg/0.25mL dose 1 completed Dorothy byrd, [facility] 04/11/2024 10:01:07 COVID-19, mRNA, LNP-S, PF, 100 mcg/0.5mL dose or 50 mcg/0.25mL dose 0 completed Dorothy byrd, [facility] 04/11/2024 10:01:07 Influenza, high-dose, trivalent, PF 0 completed Dorothy byrd, [facility] 04/11/2024 10:01:07 Influenza, split virus, quadrivalent, PF 2 completed Dorothy byrd, [facility] 04/11/2024 10:01:07 Influenza, high-dose, quadrivalent, PF 3 completed Not Available [facility]ly [facility] 02/11/2025 11:15:13 Pneumococcal conjugate PCV20, polysaccharide ZOL590 conjugate, adjuvant, PF 3 completed Not Available [facility] 02/11/2025 11:15:13 Influenza, high-dose, trivalent, PF 4 completed Not Available [facility] 02/11/2025 11:15:13 Past Encounters Encounter ID Performer Location Encounter Start Date Encounter Closed Date Diagnosis/Indication Diagnosis SNOMED-CT Code Diagnosis ICD10 Code Diagnosis IMO Codes Diagnosis Note [id number] MERISSA HERNANDEZ [facility] ([facility]) [address] [place] [address] 02/07/2023 14:32:38 02/19/2023 16:41:28 Pain of left eye 0239247698 57784 H57.12 Due to pain in left eye with all eye movements and distant and peripheral vision changes, patient referred to ophthalmDr. Ludwig sauceda. Consulted with doctor personal counselor and he agrees patient should be evaluated by Dr. Munroe to rule out acute occular pressure issues. Discussed with patient that if normal exam by ophthalmnaina davis, will consider oral antibiotic s for periorbita l cellulitis and sinusitis. Patient agrees to plan of care. Will follow up pending on exam with ophthalmol ryan today. Visual disturbance 39373 001 H53.9 [id number] Liborio Iyer DO [facility] ([facility]) [address] [place] [phone] 02/12/2023 13:57:17 02/12/2023 17:26:16 Hypothyroidism 58522870 E03.9 Insomnia 297774190 G47.0 0 Essential hypertension 14441277 I10 Multiple m yeloma in remission 19748712 C90.01 Parkinson's disease 4904 9000 G20 Chronic ki dney disease stage 4 437919921 N18.4 Neuropathy 887968883 G62 .9 Spasm of back muscles 20 5143190 M62.830 Episcleritis 542054 H15 .611 [id number] Liborio Iyer DO [facility] ([facility]) [address] [place] [id number] 03/05/2023 14:25:35 03/05/2023 20:04:08 Poor balance 841962772 R27.8 Lesion of skin of face 4101162239 06 L98.9 [id number] Liborio Iyer DO [facility] ([facility]) [address] [place] [phone] 5 04/11/2023 10:08:11 04/11/2023 18:25:42 Low back pain 405493473 M54.50 Chronic sy stolic heart failure 480131404 I50.22 Chest pain 97740006 R07. [address] Martina pulido Chronic ki dney disease stage 4 853008347 N18.4 [id number] PACO WAN [facility] ([facility]) [address] [place] [phone] 5 04/29/2023 14:29:31 04/29/2023 17:08:30 Cough 43629983 R05.9 Exacerbati on of moderate persistent asthma 294993893 J45.41 [id number] Liborio Iyer DO [facility] ([facility]) [address] [place] [id number] 5 08/13/2023 10:58:29 08/13/2023 11:47:21 Hypothyroidism 04526834 E03.9 Insomnia 018899935 G47.0 0 Numbness of hand 7292560 04 R20.0 Hyperglycemia 56717204 R 73.9 Bradycardia 81740992 R00 .1 [id number] Liborio Iyer DO [facility] ([facility]) [address] [place] [id number] 5 02/11/2024 11:20:21 02/11/2024 11:51:18 Persistent insomnia 346220800 G47.09 Chronic ki dney disease stage 4 276033012 N18.4 Chronic sy stolic heart failure 501224534 I50.22 Moderate p ersistent asthma 805880098 J45.40 Bilateral cramp of muscle of lower limbs 0851191533 2331605 R25.2 [id number] Liborio Iyer DO [facility] ([facility]) [address] [place] [phone] 5 04/09/2024 10:04:48 04/09/2024 10:27:50 Low back pain 707732140 M54.51 Weakness o f right lower limb 2024190159 08915 M62.81 Spasm of back muscles 20 5646138 M62.217 [id number] Haider Cancino MD [facility] ([facility]) [address] [place] [id number] 5 08/14/2024 09:42:18 08/14/2024 11:49:48 Anemia 189680864 D64.9 Chronic sy stolic heart failure 762858682 I50.22 Essential hypertension 36835019 I10 Hypothyroidism 79924680 E03.9 Insomnia 045035611 G47.0 0 Rheumatoid arthritis 698 32053 M06.9 Parkinson's disease 4904 9000 G20.C Multiple m yeloma in remission 47892576 C90.01 Chronic ki dney disease 813737731 I13.0 Plasma louis l dyscrasia with polyneuropathy 58209923 G13.0 Medication monitoring 39 0481835 Z51.81 History of episcleritis 6035640949 5783535 Z86.69 Hyperuricemia 34858639 E 79.0 Obstructiv e sleep apnea syndrome 87105355 G47.33 the patient is 100% compliant with cpap use and it alleviates her symptoms of excessive daytime sleepiness . she should continue apap therapy indefinite ly. her machine is 20 years old not auto-titra ting and needs to be updated. Depressive disorder 3548 9007 F32.A [id number] Vazquez Hightower MD [facility] ([facility]) [address] [place] [id number] 5 09/18/2024 11:50:32 09/25/2024 07:36:47 Exacerbation of moderate persistent asthma 243217007 J45.41 Concerned about exacerbati on of her asthma. Start steroids and antibiotic s. Continue current inhalers. Discussed follow-up with PCP to discuss asthma treatment. [id number] Haider Cancino MD [facility] ([facility]) [address] [place] [phone] 01/05/2025 11:59:05 01/05/2025 15:18:05 Neuropathy 700350996 G62.9 Chronic ob structive pulmonary disease 63214601 J44.9 Hypothyroidism 46736093 E03.9 Moderate p ersistent asthma 488196374 J45.40 Insomnia 602622728 G47.0 0 Chronic sy stolic heart failure 102551031 I50.22 Cardiomyopathy 67098316 I42.8 [id number] has started entresto Obstructiv e sleep apnea syndrome 60544970 G47.33 105935 she is benefittin g from cpap greatly and is compliant with use. daily eventsshe should continue it indefinite ly for improving daytime sleepiness and chf. her event rates with tx are consistent ly less than 5 per hour. Chronic low back pain 27 5364278 M54.50 G89.29 1745114801 Vaginal dryness 00769834 N89.8 509234 [id number] Haider Cancino MD 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 ([facility]) [address] [place] [phone] 5 02/11/2025 11:11:38 02/11/2025 13:52:12 Essential hypertension 46313357 I10 Neuropathy 387787050 G62 .9 Finding of clavicle structure 288614087 M95.8 [id number] Health Concerns Section Related Observation LastModified by Organization Detai ls LastModified Time None Recorded Concern Status LastModified by Organization Details LastModified Time None Recorded Advance Directives Directive None Recorded Payers Insurance Date Sequence Insurance Name Policy Number Policy Walsh Covered Member ID Walsh Member ID Guarantor Name 09/06/2023 2 UNSPECIFIED REMIT PAYOR Maryjo Lynn 02/10/2025 2 FOR LIFE ( - MEDICARE SUPPLEMENT) Maryjo Lynn [id number] Maryjo Lynn 02/04/2025 [place] - [id number] (MEDICARE) Maryjo Lynn [id number] Maryjo Lynn 02/04/2025 1 [place] Maryjo Lynn [id number] Maryjo Lnyn Notes Date Note Type Note Provider Name and Address Organization Details Recorded Time 08/14 text/ html Annual WellnessReported by Patient Pt needs a new CPAP supply order sent in to [facility] for monoclonal abnormalityPt has neck and back pain, and is doing PT for her neck. She will get an injection in her right SI joint next Sunday.Pt states she has had some difficulty swallowing her pills and with having acid reflux at night.Periodic bright red rectal bleeding due to hemorroides.BLE edema; worse in left leg due to a fall on [place].Pt would like to discuss switching off carvidopa levidopa for restless leg syndrome. Oncology HPIOncology HPI:This is a 77 year-old woman with monoclonal gammopathy of undetermined significance. 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 She was found to be mildly anemic and she had a moderately elevated sedimentation rate. A protein electrophoresis was normal, but her free light chain assay did show elevated lambda light chain at 502.3 mg/dL with normal kappa light chain at 11.57 mg/dL and with low kappa/lambda ratio at 0.02. A 24-hour urine study showed a total protein excretion of 405 mg, but with no monoclonal protein. Bone marrow aspiration/biopsy in May 2010 showed mildly increased cellularity with plasma cells slightly elevated at 12%. Iron stores were noted to be absent. The chromosome analysis was normal and the FISH panel for myeloma was negative.She subsequently underwent evaluation at [facility]. 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 She did not appear to be symptomatic with it, and she was monitored with observation/expectant management.In January 2014 she had presented to the emergency room with hemoptysis. CT pulmonary angiogram at that time showed no evidence of pulmonary embolism. There was a 5 cm area of consolidation in the right upper lobe which was a new finding compared to August 2013. There was a small area of cavitation within the focal density consistent with pneumonia with abscess formation versus cavitary neoplasm. She was seen by Dr. Cox. Bronchoscopy showed mucosal edema in the right upper lobe, but there was no endobronchial lesion. Cultures from the bronchial washings were negative. She did receive empiric antibiotic coverage for 6 weeks. She was scheduled for CT directed needle biopsy in February, but the CT at that time showed near complete resolution of the mass and biopsy was not attempted.During follow-up she also has had a mild anemia with her hemoglobin levels ranging from 10-12 g. Her red cell indices have been normal. Her serum iron studies had shown low transferrin saturation with serum ferritin levels in the low-normal range, consistent with iron deficiency. She had been on long-termoral iron supplementation. She was then given parenteral iron replacement with Injectafer, limited to a single infusion of 750 mg in August 2016. She tolerated it well. However, on her follow-up blood counts there was no significant improvement in the anemia.A CT scan of the right knee on 03/15/2017 showed advanced degenerative arthritis of the right knee with medial and lateral compartment narrowing. There were multiple well-circumscribed lesions or prominent in the medial joint compartment extending to the articular surface with cortical erosion some places. These involve the femoral condyle and tibial plateau. The findings were felt to be consistent with myelomatous disease. Additional smaller lytic lesions were noted in the lateral joint compartment and intercondylar eminence. Multiple lytic lesions were noted to involve the proximal fibular head with cortex erosion.She had further evaluation with PET/CT on 03/14/2017. It also felt to be probably a negative exam. 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 She had follow-up with Dr. Arboleda at [facility] in June 2017. He agreed with the PET/CT report that it was unlikely that the findings in the right knee were due to myeloma. He recommended continued observation for the monoclonal gammopathy. She then underwent right total knee arthroplasty in December 2017 and left total knee arthroplasty in June 2018. As of her follow-up visit in September 2019 her serum protein electrophoresis showed stable M protein at 0.1 g/dL. Her free lambda light chain remained elevated at 979.5 mg/L with decreased kappa/lambda ratio at 0.02. As of October 2020 the free lambda light chain was down slightly at 740.6 mg/L with kappa/lambda ratio stable at 0.03.On 05/13/2021 she underwent laminectomy at L4 and L5 with L4/5 interbody fusion and L5/S1 interbody fusion. The procedure also included bone marrow aspirate from the iliac crest, but there was no pathology report associated with that procedure. Postoperatively her hemoglobin dropped to as low as 8.3 g, but that did improve taking oral iron 3 times a day.As of December 2021 her free lambda light chain had increased to 1499.5 mg/L, but with her M protein stable at 0.2 g/dL and with her 24-hour urine showing no evidence of monoclonal protein excretion. Her hemoglobin was down to 9.6 g, but with transferrin saturation low at 10%, consistent with iron deficiency. She continued oral iron supplementation. Her repeat serum free light chain assay in March 2022 showed decline in the free lambda light chain to 1272.9 mg/L, and has of July 2022 it had further declined to 1089.5 mg/L. She continued expectant management.She is seen for a follow-up visit. She continues to show gradual decline in her activity tolerance, mainly due to back pain. She also complains that she is tired, and she naps every day. Her ECOG score is 3. She has good appetite. She has not had fever. She does have some hot flashes and sweating. She has not had sore mouth or throat. She has nonproductive cough. She is short of breath with activity. She occasionally has sharp pain in the chest, but it lasts only a few seconds. She currently has no GI complaints. She has bladder incontinence. Her joint pain has improved on low-dose prednisone. She continues to have significant pain in the neck radiating to the left arm and in the lower back. She has been having more frequent headaches and she has ongoing problems with her balance. She has been prone to falling. She has a lot of numbness in her hands/fingers.No Active ChemotherapyAllergiesadhesive tape Allergy (Intermediate, Verified 08/01/23 14:49)rash, itch, DERMABONDACE Inhibitors Allergy (Verified 08/01/23 14:49)VYL-Gbyawjytqdlxr-lrnpjy [From Betadine] Allergy (Verified 08/01/23 14:49)ALGY-Blisterpropranolol [From Inderal LA] Allergy (Verified 08/01/23 14:49)ADR-Depressionsoap [From Betadine] Allergy (Verified 08/01/23 14:49)ALGY-Blisterverapamil Allergy (Verified 08/01/23 14:49)ADR-Headachedermabond Allergy (Uncoded 08/01/23 14:49)ALGY-BlisterHome Medications- Last Reconciled 08/01/23 by Jean Paul Ramirez Vargasalbuterol sulfate 90 mcg/actuation (ProAir HFA) 2 puffs inhalation QID PRNallopurinol 200 mg (2 x 100 mg) PO DAILYatorvastatin 40 mg PO DAILYbisoprolol fumarate 2.5 mg (1/2 x 5 mg) PO DAILYcarbidopa-levodopa 50-200 mg ER 1 tab PO BIDcetirizine (Zyrtec) 10 mg PO DAILY PRNchlorpheniramine maleate (Aller-Chlor) 4 mg PO .HScholecalciferol (vitamin D3) 1,000 units PO DAILYcyclobenzaprine 5 mg PO BEDTIME PRNdiclofenac sodium 1% 4 grams topical QID PRN 90 daysfluticasone propionate 50 mcg/actuation (Flonase Allergy Relief) 2 sprays intranasal .hsgabapentin 300 mg PO WSNDPZYprzvoapbmwo-mgl-ujwzbeufk-vitC (Glucosamine Complex-MSM capsule) 1 cap PO TIDhydrocodone-acetaminophen 7.5-325 mg 1 tab PO Q12H PRNhydroxychloroquine TAKE 2 TABLETS EVERY OTHER DAY ALTERNATING WITH 1 TABLET EVERY OTHER DAY[iron 10 mg PO TID]levothyroxine 150 mcg PO DAILYmontelukast (Singulair) 10 mg PO BEDTIMEmultivitamin 1 tab PO BIDpantoprazole 40 mg PO BIDprednisolone acetate 0.12% 1 drp ophthalmic (eye) DIRECTED PRNprednisone 2.5 mg PO DAILYsennosides-docusate sodium 8.6-50 mg (Senna Plus) 1 tab-cap PO DAILY PRNtorsemide 10 mg PO DAILY PRNturmeric root extract 1,500 mg PO DAILYvalsartan 160 mg PO BIDvenlafaxine ER (Effexor XR) 75 mg PO DAILYzolpidem (Ambien) 5 mg PO BEDTIME PRNPFSHMedical History EpiscleritisHistory of iron deficiency anemiaAnxiety and depressionPeripheral neuropathyHypothyroidismGERD (gastroesophageal reflux disease)Morbid obesity with BMI of 45.0-49.9, adultStenosis of cervical spine with myelopathyCervical disc disorder with myelopathy of mid-cervical regionIntervertebral disc disorder with radiculopathy of lumbosacral regionSleep apneaDyslipidemiaObesityNonischemic cardiomyopathyEssential hypertensionHyperuricemiaCKD (chronic kidney disease)MGUS (monoclonal gammopathy of unknown significance)Degenerative lumbar spinal stenosisErosive osteoarthritisGout, arthritisSurgical History (Updated 08/06/23 @ 14:13 by Liborio Hackett MD)Status post surgical removal of malignant neoplasm of skinBasal cell carcinomaHistory of lumbar laminectomy (05/13/21)Lumbar laminectomy at L4 and L5 with L4/5 interbody fusion and with L5/S1 interbody fusionHistory of surgical removal of ganglion cystright wristHistory of knee joint replacementLeft 06/2018 right 12/2017Hx of foot surgeryRight x2-sub talur fusoin and arthrodesisHx of hysterectomyHx of bilateral oophorectomywith Dr. Watts [place] [facility] and left side 2010right side [facility] of tonsillectomyStatus post reverse arthroplasty of right shoulderHistory of arthroplasty of left shoulderFamily History SonSarcoidosisMotherCancerSisterRheum atoid arthritisGrandmotherDiabetesFatherCancerMyoc ardial infarctionSocial History Smoking and tobacco/nicotine status: never used tobacco/nicotineSecond hand smoke exposure: NoAlcohol intake: current Alcohol intake frequency: holidays/special occasions onlySubstance/Drug Use: neverHousehold members: spouseMarital status: MarriedCurrent occupational status: employedCurrent occupation: OMCFemale Reproductive HistoryDate of last menstrual period: 10/28/20Dietary HabitsCurrent diet type/program: regularCaffeine: Yes Caffeine intake frequency: coffee and teaECOG0-5 Rating ScoreECOPhysical ExamNarrativeEXAM NARRATIVE:Constitutional: She appears somewhat weak generally, and she has limited mobility.Eyes: Sclerae nonicteric. Conjunctivae clear.ENMT: No lesions noted in the oral cavity.Hematologic/Lymphatic: No cervical, clavicular, or axillary adenopathy.Respiratory: Lungs are clear with good air movement bilaterally.Cardiovascular: Heart rhythm is regular. There is a II/ systolic murmur. There is no gallop or rub noted.Abdomen: Mildly distended. Liver and spleen are not enlarged. There is no abdominal mass or ascites noted and there is no inguinal adenopathy.Extremities: No edema.Neurologic: No focal neurologic deficits noted.Supplemental InfoLaboratory studies from 07/25/2023 included CBC showing hemoglobin 10.4 g with hematocrit 32.7%. The Red cell indices were macrocytic. The white blood cell count was 6100 and the platelet count was 248,000. Comprehensive metabolic profile showed stable renal function with BUN 52 and creatinine 1.7 mg/dL. Bilirubin and liver enzymes were normal. Calcium was normal at 9.4 mg/dL with albumin 4.1 g/dL. The protein electrophoresis showed stable M protein quantitating at 0.2 g/dL. The serum free light chain assay showed a decline in the free lambda light chain to 878.9 mg/L, with the free kappa light chain slightly elevated at 24.3 mg/L, and with the kappa/lambda ratio low but stable at 0.03. The quantitative immunoglobulin levels showed low IgG at 451 mg/dL, low IgM at 35 mg/dL, and IgA in normal range at 92 mg/dL. The 24-hour urine showed total protein excretion of 76 mg. There was no monoclonal protein detected.Assessment & PlanAssessment & Plan(1) MGUS (monoclonal gammopathy of unknown significance):Assessment & Plan:Patient with monoclonal gammopathy characterized by a persistently elevated serum free lambda light chain and low kappa/lambda ratio.It was initially discovered in 2009, and at that time it was suspected that she had an early stage of plasma cell dyscrasia. During follow-up there was some fluctuation in the level of her free lambda light chain. As of December 2021 it had increased to 1499.5 mg/dL, but on subsequent studies it had declined. The current free light chain assay shows her free lambda light chain down to 878.9 mg/L. Her kappa/lambda ratio remains low but stable at 0.03. Her protein electrophoresis continues to show a very low level monoclonal protein, currently stable at 0.2 g/dL. She also continues to have mild, macrocytic anemia, though it has been showing very gradual improvement on oral iron supplementation.Thus far significance of the monoclonal gammopathy has remained uncertain, but there has been no clinical evidence for myeloma or for amyloidosis. As such, she continues expectant management. Given the duration of the monoclonal gammopathy without clinical evidence of associated disease and without evidence of progression, she is recommended now to just continue her regular follow-up with Dr. Iyer. I would recommend continuing to monitor her serum protein electrophoresis, quantitative immunoglobulin levels, and serum free light chain assay yearly.CodingLevel of Care CodeOFFICE/ OP VISIT EST LV 4DiagnosesMGUS (monoclonal gammopathy of unknown significance) D47.2IntakeVital Signs01/17:50114:46124:41 Height1.55 m1.55 m1.55 oAkvndw580.001 kgBMI47.4NK167/87Blood Pressure LocationRt odyxykmnXrypvvorKivnkcjVvogymxmqro01Jkjhw69S ulse YnhrfzXghxuilmaVxks52.7 F LTemp SourceTemporal Artery ScanPulse Oximetry (%)96Oxygen Delivery MethodRoom AirIntakeVisit Reasons: OncologyPain scale (0-10 scale): 7Is the reason for visit related to pain management?: NoAllergiesadhesive tape Allergy (Intermediate, Verified 12/27/23 14:49)rash, itch, DERMABONDACE Inhibitors Allergy (Verified 08/01/23 14:49)ZWT-Telyxmloqjgoc-zfcyto [From Betadine] Allergy (Verified 08/01/23 14:49)ALGY-Blisterpropranolol [From Inderal LA] Allergy (Verified 08/01/23 14:49)ADR-Depressionsoap [From Betadine] Allergy (Verified 08/01/23 14:49)ALGY-Blisterverapamil Allergy (Verified 08/01/23 14:49)ADR-Headachedermabond Allergy (Uncoded 08/01/23 14:49)ALGY-BlisterHome Medications Home Medications- Last Reconciled 08/01/23 by Jean Paul Ramirez Vargasalbuterol sulfate 90 mcg/actuation (ProAir HFA) 2 puffs inhalation QID PRNallopurinol 200 mg (2 x 100 mg) PO DAILYatorvastatin 40 mg PO DAILYbisoprolol fumarate 2.5 mg (1/2 x 5 mg) PO DAILYcarbidopa-levodopa 50-200 mg ER 1 tab PO BIDcetirizine (Zyrtec) 10 mg PO DAILY PRNchlorpheniramine maleate (Aller-Chlor) 4 mg PO .HScholecalciferol (vitamin D3) 1,000 units PO DAILYcyclobenzaprine 5 mg PO BEDTIME PRNdiclofenac sodium 1% 4 grams topical QID PRN 90 daysfluticasone propionate 50 mcg/actuation (Flonase Allergy Relief) 2 sprays intranasal .hsgabapentin 300 mg PO LKAMFBQatckutmpiyg-iap-buzhktopl-vitC (Glucosamine Complex-MSM capsule) 1 cap PO TIDhydrocodone-acetaminophen 7.5-325 mg 1 tab PO Q12H PRNhydroxychloroquine TAKE 2 TABLETS EVERY OTHER DAY ALTERNATING WITH 1 TABLET EVERY OTHER DAY[iron 10 mg PO TID]levothyroxine 150 mcg PO DAILYmontelukast (Singulair) 10 mg PO BEDTIMEmultivitamin 1 tab PO BIDpantoprazole 40 mg PO BIDprednisolone acetate 0.12% 1 drp ophthalmic (eye) DIRECTED PRNprednisone 2.5 mg PO DAILYsennosides-docusate sodium 8.6-50 mg (Senna Plus) 1 tab-cap PO DAILY PRNtorsemide 10 mg PO DAILY PRNturmeric root extract 1,500 mg PO DAILYvalsartan 160 mg PO BIDvenlafaxine ER (Effexor XR) 75 mg PO DAILYzolpidem (Ambien) 5 mg PO BEDTIME PRNFollowed by:: GapsCare Gap Labs:No Data to DisplayTB/MDROTB ScreeningTuberculosis Symptoms: NoneTB Risk Factors: NoneWas Physician Notified of Positive Risk Factors: NoMDRO (Multi-drug Resistant Organisms)Have you had Methicillin-Resistant Staphylococcus Aureus (MRSA)?: NoHave you had Clostridium Difficile (C-Diff)?: NoHave you had Vancomycin-Resistant Enterococci (VRE)?: NoWas patient provided education on preventing infections?: YesQualityHealth MaintenanceDoes patient have any barriers to learning?: NoDoes patient have any communication needs?: GlassesDoes patient use assistive: No Cane, Yes Walker, No Wheelchair, No Commode Chair, No Hospital Bed and Yes Respiratory Assist DeviceMedication Rec. Completed: YesCultural or Methodist Beliefs: NoSuicide Risk AssessmentHave you had little interest or pleasure in last 2 weeks?: Not At AllBeen feeling down, depressed, or hopeless over last 2 weeks?: Not At AllHave you had Suicidal thoughts?: Not At AllTotal Score: 0Patient score 3 or greater or had suicidal thoughts?: NegativeDepression screening performed: YesFall Risk AssessmentHistory of Falling (Immediate or Previous): Yes (3 times in the last three weeks)Secondary Diagnosis (2 Or More Medical Diagnoses in Chart): NoAmbulatory Aid: Crutches/cane/walker (walker)IV/Heparin Lock: NoGait/Transferring: Impaired (uses assistive (walker)Mental Status (oriented to person/place/time): Oriented to own abilityIf the referral to Physical Therapy is warrented, does the patient accept or decline the referral to Physical Therapy?: Patient Declines ReferralAnnual AssessmentsDate Next DueAnnual Assessment Dates Next Due:Date of Next Flu Zsexatxtpc81/13/24Date of Next Abuse Dtqsndxfpf16/27/24 Haider Cancino MD [address] [place] [address], [phone], [facility] 5 11:00:18 09/18 text/ html AsthmaReported by PatientROS as noted in the HPI walk in patientpatient is here today for cough, wheezing and shortness of breath that started yesterday patient is still taking her albuterol inhaler and prednisone for her asthma but it is not helping. Patient said that she was sick a week and a half ago then yesterday she started coughing and wheezing Vazquez Hightower MD [address] [place] [address], [phone], [facility] 5 10:43:08 01/05 text/ html Obstructive Sleep ApneaReported by PatientHPIFor associated symptoms, patient reportsdaytime sleepinessbut reportsno morning headacheandno suddenly falling asleep during the day. For duration, patient [id number]. For alleviating factors, patient reportspositive airway pressure devices(pt uses her c-pap every night and is compliant with and benefitting from its use.).ROS as noted in the HPI Haider Cancino MD [address] [place] [address], [phone], [facility] 5 13:13:47 02/11 text/ html Hypertension F/UReported by PatientHPIFo r medications, patient reportstaking medications as directedandchecks blood pressure at home, range:(she has lows on her b/p that concern her). HypothyroidReported by Patient 6 month f/u labs done last week her myeloma labs are pending Haider Cancino MD [address] [place] [address], [phone], [facility] 5 12:00:14 OBGyn Episode No OBEpisode recorded.
--- OUTSIDE RECORDS SUMMARY | 2025-06-03 13:00 | XMS_ITS | Encounter Summary ---
Author Organization [facility] Address [address] [place] [address] Care Team Providers Care Director [employer] Name Role Phone Tip Manning DO Primary Care Provider Encounter Details Date Type Department Care Team (Latest Contact Info) Description 04/25/2006 Outpatient Historical [facility] Rheumatology- [facility] [place] [address] [place] [phone] Rachel Desai MD [address] [place], [place] [id number] Generalized Osteoarthrosis, Involving Multiple Sites (Primary Dx); Encounter for Long-Term (Current) Use of Other Medications Social History Tobacco Use Types Packs/Day Years Used Date Smoking Tobacco: Never Assessed Comments Unknown Sex and Gender Information Value Date Recorded Sex Assigned at Not on file 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
--- OUTSIDE RECORDS SUMMARY | 2025-06-03 13:00 | XMS_ITS | Encounter Summary ---
Author Organization [facility] Address [address] [place] [address] Care Team Providers Care Tilting Saw Operator Name Role Phone Tip Manning DO Primary Care Provider Encounter Details Date Type Department Care Team (Latest Contact Info) Description 06/26/[address] 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
--- OUTSIDE RECORDS SUMMARY | 2025-06-03 13:00 | XMS_ITS | Encounter Summary ---
Author Organization [facility] Address [address] [place] [address] Phone Care Team Providers Care Tax Services Specialist Name Role Phone Haider Cancino MD Primary Care Provider [phone] Encounter Details Date Type Department Care Team (Late st Contact Info) Description 04/03/2022 Orders Only [facility] [address] [place] [address] Serum creatinine raised Social History [...] st Contact Info) Description 09/16/2025 10:00 AM HAND WORKER Office Visit [facility] [address] [place] [address] Margarita Han NP [address] [place] [address] documented as of this encounter Visit Diagnoses Diagnosis Serum creatinine raised documented in this encounter Care Teams Tax Services Specialist Relationship Specialty Start Date End Date Haider Cancino MD [address] [place] [phone] PCP - General Family Medicine 09/09/24 documented as of this encounter
--- OUTSIDE RECORDS SUMMARY | 2025-06-03 13:00 | XMS_ITS | Clinical Summary ---
Author Organization [facility] Address [address] 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
--- OUTSIDE RECORDS SUMMARY | 2025-06-03 13:00 | XMS_ITS | Encounter Summary ---
Author Organization [facility] Address [address] [place] [address] Care Team Providers Care Printed Circuit Boards Beveler Name Role Phone Tip Manning DO Primary Care Provider [phone] Encounter Details Date Type Department Care Team (Latest Contact Info) Description 12/29/2005 Outpatient Historical [facility] Rheumatology- [facility] [place] [address] [place] [phone] Rachel Desai MD [address] [place], [place] [phone] Generalized Osteoarthrosis, Involving Hand (Primary Dx) Social History Tobacco Use Types Packs/Day Years Used Date Smoking Tobacco: Never Assessed Comments Unknown Sex and Gender Information Value Date Recorded Sex Assigned at Not on file Legal Sex Female 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
--- OUTSIDE RECORDS SUMMARY | 2025-06-03 13:00 | XMS_ITS | Encounter Summary ---
Author Organization [facility] Address [address] [place] [address] Care Team Providers Care Lacquer Polisher Name Role Phone Tip Manning DO Primary Care Provider Encounter Details Date Type Department Care Team (Latest Contact Info) Description 10/24/2006 Outpatient Historical [facility] Rheumatology- [facility] [place] [address] [place] [phone] Rachel Desai MD [address] [place], [place] [phone] Osteoarthrosis, Unspecified Whether Generalized or Localized, Hand (Primary Dx) Social History Tobacco Use Types Packs/Day Years Used Date Smoking Tobacco: Never Assessed Comments Unknown Sex and Gender Information Value Date Recorded Sex Assigned at Not on file Legal Sex Female 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
--- NOTE | 2025-06-03 13:05 | W.ED.WEAKNES ---
HPI - Weakness General: Chief complaint: General Medical Stated complaint: Dizzy Low Bp Weaking swelling Legs/Feet Time Seen by Provider: 06/03/25 13:02 History of Present Illness: 79-year-old female with a history of obesity, gout, hyperlipidemia, sleep apnea, nonischemic cardiomyopathy, congestive heart failure, hypertension, MGUS, chronic kidney disease, polyneuropathy, who presents to the emergency room with weakness and dizziness. She says she has been feeling lightheaded. She has swelling in her legs but she says that is improved over what it was. She does take a diuretic. She says her blood pressures been low at home. No focal motor deficits. No altered mental status. No known fevers. No chest pain. No abdominal pain. Related Data Home Medications ?Medication ?Instructions ?Recorded ?Confirmed carbidopa ER 50 mg-levodopa 200 mg 1 tab PO TID 09/09/19 06/03/25 tablet,extended release montelukast 10 mg tablet 10 mg PO BEDTIME 09/09/19 06/03/25 (Singulair) gabapentin 300 mg capsule 300 mg PO BEDTIME 11/29/20 06/03/25 cetirizine 10 mg tablet (Zyrtec) 10 mg PO DAILY PRN Allergy Symptoms 05/11/21 06/03/25 sennosides 8.6 mg-docusate sodium 1 tab PO DAILY PRN Constipation 12/05/21 06/03/25 50 mg tablet (Senna Plus) chlorpheniramine maleate 4 mg 4 mg PO BEDTIME PRN Itching 06/12/22 06/03/25 tablet (Aller-Chlor) multivitamin 1 tab PO DAILY 06/12/22 06/03/25 fluticasone propionate 50 2 spray intranasal .hs 07/12/22 06/03/25 mcg/actuation nasal spray,suspension (Flonase Allergy Relief) efoxwflxdjm-eok-idynqgjeh-vitC 1 cap PO BID 01/17/23 06/03/25 capsule (Glucosamine Complex-MSM capsule) turmeric root extract 500 mg 3,000 mg PO DAILY 11/22/23 06/03/25 capsule cyclobenzaprine 10 mg tablet 10 mg PO BEDTIME 05/23/24 06/03/25 fluticasone 500 mcg-salmeterol 50 1 inh inhalation BID 05/23/24 06/03/25 mcg/dose blistr powdr for inhalation (Advair Diskus) zolpidem 5 mg tablet (Ambien) 2.5 mg PO BEDTIME PRN Insomnia 05/23/24 06/03/25 torsemide 20 mg tablet 10 mg PO DAILY 02/03/25 06/03/25 hydrocodone 5 mg-acetaminophen 325 1 tab PO Q6H PRN Pain 03/03/25 06/03/25 mg tablet albuterol sulfate 90 mcg/actuation 2 puff inhalation QID PRN Wheezing 06/03/25 06/03/25 aerosol inhaler clindamycin phosphate 1 % lotion 1 applic topical DAILY PRN skin 06/03/25 06/03/25 rash estradiol 0.01% (0.1 mg/gram) 1 g vaginal DAILY 06/03/25 06/03/25 vaginal cream hydroxychloroquine 200 mg tablet See Rx Instructions .Route .COMPLEX 06/03/25 06/03/25 (Plaquenil) levothyroxine 150 mcg tablet 150 mcg PO DAILY 06/03/25 06/03/25 (Synthroid) lidocaine 5 % topical patch 1 patch topical DAILY PRN Pain 06/03/25 06/03/25 mometasone 0.1 % topical solution 1 applic topical DAILY PRN skin 06/03/25 06/03/25 rash sacubitril 24 mg-valsartan 26 mg See Rx Instructions .Route .COMPLEX 06/03/25 06/03/25 tablet (Entresto) triamcinolone acetonide 0.1 % 1 applic topical DAILY PRN skin 06/03/25 06/03/25 topical cream rash Previous Rx's ?Medication ?Instructions ?Recorded pantoprazole 40 mg tablet,delayed 40 mg PO BID #90 tabs 07/12/22 release diclofenac sodium 1 % topical gel See Rx Instructions .Route 05/22/24 .COMPLEX #300 grams atorvastatin 40 mg tablet 40 mg PO DAILY #90 tabs 12/30/24 bisoprolol fumarate 5 mg tablet 2.5 mg (1/2 x 5 mg) PO DAILY #45 12/30/24 tabs allopurinol 100 mg tablet 200 mg (2 x 100 mg) PO DAILY #180 03/16/25 tabs Allergies Allergy/AdvReac Type Severity Reaction Status Date / Time adhesive tape Allergy Intermediate rash, Verified 03/03/25 10:26 itch, DERMABOND 2-octyl cyanoacrylate Allergy ALGY-Bliste Verified 03/03/25 10:26 r DANNY Inhibitors Allergy ADR-Cough Verified 03/03/25 10:26 povidone-iodine (From Allergy ALGY-Bliste Verified 03/03/25 10:26 Betadine) r propranolol (From Inderal [place]) Allergy ADR-Depress Verified 03/03/25 10:26 ion soap (From Betadine) Allergy ALGY-Bliste Verified 03/03/25 10:26 r verapamil Allergy ADR-Headach Verified 03/03/25 10:26 e Review of Systems Narrative: Constitutional symptoms: Negative except as documented in HPI. Skin symptoms: Negative except as documented in HPI. Eye symptoms: Negative except as documented in HPI. ENMT symptoms: Negative except as documented in HPI. Respiratory symptoms: Negative except as documented in HPI. Cardiovascular symptoms: Negative except as documented in HPI. Gastrointestinal symptoms: Negative except as documented in HPI. Genitourinary symptoms: Negative except as documented in HPI. Musculoskeletal symptoms: Negative except as documented in HPI. Neurologic symptoms: Negative except as documented in HPI. Psychiatric symptoms: Negative except as documented in HPI. Endocrine symptoms: Negative except as documented in HPI. PFSH ED PFSH: Medical History (Updated 06/03/25 @ 14:52 by Darya Mckeon MD) Episcleritis History of iron deficiency anemia Anxiety and depression Peripheral neuropathy Hypothyroidism GERD (gastroesophageal reflux disease) Morbid obesity with BMI of 45.0-49.9, adult Stenosis of cervical spine with myelopathy Cervical disc disorder with myelopathy of mid-cervical region Intervertebral disc disorder with radiculopathy of lumbosacral region Sleep apnea Dyslipidemia Obesity Nonischemic cardiomyopathy Essential hypertension Hyperuricemia CKD (chronic kidney disease) MGUS (monoclonal gammopathy of unknown significance) Degenerative lumbar spinal stenosis Erosive osteoarthritis Gout, arthritis Surgical History Status post surgical removal of malignant neoplasm of skin Basal cell carcinoma History of lumbar laminectomy (05/13/21) Lumbar laminectomy at L4 and L5 with L4/5 interbody fusion and with L5/S1 interbody fusion History of surgical removal of ganglion cyst right wrist History of knee joint replacement Left 06/2018 right 12/2017 Hx of foot surgery Right x2-sub talur fusoin and arthrodesis Hx of hysterectomy Hx of [place] [facility] [place] and left side 2011 right side done when had hysterectomy at [place] Hx of tonsillectomy Status post reverse arthroplasty of right shoulder History of arthroplasty of left shoulder Family History Son Sarcoidosis Mother Cancer Sister Rheumatoid arthritis Grandmother Diabetes Father Cancer Myocardial infarction Social History Smoking and tobacco/nicotine status: never used tobacco/nicotine Second hand smoke exposure: No Alcohol intake: current Alcohol intake frequency: holidays/special occasions only Substance/Drug Use: never Household members: spouse Marital status: Current occupational status: employed Current occupation: [employer] [place] Physical Exam Narrative: EXAM NARRATIVE: General: Alert, no acute distress. Skin: Warm, dry. Head: Normocephalic, atraumatic. Neck: Supple, trachea midline. Eye: Extraocular movements are intact. Ears, nose, mouth and throat: mucosa moist. Cardiovascular: Regular, Normal peripheral perfusion. 1-2+ pitting tibial edema, equal bilaterally and she says this is improved over recent swelling. Respiratory: Lungs are clear to auscultation, respirations are non-labored, breath sounds are equal, Symmetrical chest wall expansion. Gastrointestinal: Soft, Nontender, Non distended Musculoskeletal: Normal ROM, no deformity. Neurological: Alert and oriented, No focal neurological deficit observed. Psychiatric: Cooperative, appropriate mood & affect. Course Vital Signs: Vital signs: Vital Signs Temperature 97.8 F 06/03/25 12:52 Pulse Rate 63 06/03/25 14:10 Respiratory Rate 18 06/03/25 12:52 Blood Pressure 101/59 06/03/25 14:10 Pulse Oximetry 90 06/03/25 14:10 Oxygen Delivery Me thod Room Air 06/03/25 14:10 MDM - Weakness Medical Decision Making Medical decision making: Patient's reason for coming to the emergency room: Weakness, lightheadedness Social determinants: Retired, I reviewed the patient's medical record. 79-year-old female with a history of obesity, gout, hyperlipidemia, sleep apnea, nonischemic cardiomyopathy, congestive heart failure, hypertension, MGUS, chronic kidney disease, polyneuropathy, I reviewed the patient's current home meds Patient does appear to be on hydroxychloroquine which would be a high risk medication and cause immunosuppression. I reviewed this prescription monitoring program. She has received a couple of prescriptions for hydrocodone in the last year as well as 2 prescriptions for zolpidem Alternate historians: is present but patient gives sufficient history. Differential diagnosis for patient presenting with generalized weakness including but not limited to and based on the above HPI, review of systems and physical exam: Sepsis. Dehydration. Renal failure. Electrolyte abnormalities. Anemia. Congestive heart failure. Hypotension. Coronary syndrome. Hepatitis. Cirrhosis. Infections such as pneumonia, urinary tract infection, [place] illness, Cellulitis, Viral infections including influenza and Covid-19. Workup: labwork and lab/exam driven imaging ordered to evaluate, rule in and rule out above pathologies. EKG: Time 1304. Rate 67. Normal sinus rhythm, nonspecific ST changes, no ectopy, normal UT & QRS intervals, This was reviewed and interpreted by myself the ER physician at 1307 EKG: Time 1423. Rate 62. Normal sinus rhythm, nonspecific ST changes, no ectopy, normal UT & QRS intervals, This was reviewed and interpreted by myself the ER physician at 1427. No significant changes from EKG done previously today in the emergency room. Chest x-ray: No acute process. No infiltrate. No pneumothorax. This was reviewed and interpreted by myself the emergency room physician. I also reviewed the radiology report. Lab Review: Laboratory results were reviewed and interpreted by myself the emergency room physician. No leukocytosis. Stable chronic anemia with a hemoglobin of 9.7. BUN and creatinine are 104 and 4.3 which is quite elevated over recent measurements. She does have chronic kidney disease and recently she was 50 and 1.6. Troponin is elevated at 187. This will be trended. She has not had any chest pain. Likely secondary to her renal failure. Assessment of risk: Level of risk: High risk patient. Extensive medical history with multiple medical problems Hospitalization considerations: Patient has acute on chronic renal failure with hypotension. This seems to most likely be secondary to overdiuresis. She states she has had a significant decrease in lower extremity swelling recently. Reexamination: Patient remained stable. No increased work of breathing. No altered mental status. No focal motor deficits. Blood pressure was a little soft initially but in bed she is got a pressure of 119/66 at the time of admission. Consultation: I spoke with Dr. Mckeon who is on-call for the hospitalist service who agrees to admission. Assessment and plan: Acute on chronic renal failure. Elevated troponin. Hypotension -I discussed the patient with the hospitalist on-call who is admitting the patient. - Discussed findings and plan with patient. Answered any questions. - All laboratory values were reviewed and interpreted personally by myself, the ER physician - All imaging was reviewed and interpreted personally by myself, the ER physician. - Evaluation and treatment of this problem were appropriate in the emergency setting Lab Data 06/03/25 13:29 06/03/25 13:29 Radiology Impressions Chest X-Ray 06/03/25 12:58 IMPRESSION: 1. No acute cardiopulmonary finding. Mild cardiac enlargement unchanged. Laboratory Results WBC 9.34 10^3/uL (3.29-11.43) 06/03/25 13: RBC 2.74 10^6/uL (3.85-5.65) L 06/03/25 13: Hgb 9.70 g/dL (11.27-16.99) L 06/03/25 13: Hct 30.2 % (36-47) L 06/03/25 13: MCV 110.2 fl (85-98) H 06/03/25 13: MCH 35.4 pg (27-33) H 06/03/25 13: MCHC 32.1 g/dL (30-55) 06/03/25 13: RDW 19.7 % (12.1-15.1) H 06/03/25 13: Plt Count 247 10^3/cmm (157-399) 06/03/25 13: MPV 12.4 fL (7.4-10.4) H 06/03/25 13: Neut % (Auto) 81.6 % 06/03/25 13: Lymph % (Auto) 8.1 % 06/03/25 13: [place] % (Auto) 7.6 % 06/03/25 13: Eos % (Auto) 2.1 % 06/03/25 13: Baso % (Auto) 0.4 % 06/03/25 13: Neut # (Auto) 7.61 10^3/uL (1.8-7.7) 06/03/25 13:29 Lymph # (Auto) 0.8 10^3/uL (0.8-4.8) 06/03/25 13:29 [place] # (Auto) 0.7 10^3/uL (0.2-0.9) 06/03/25 13:29 Eos # (Auto) 0.2 10^3/uL (0.0-0.8) 06/03/25 13: Baso # (Auto) 0.0 10^3/uL (0.0-0.1) 06/03/25 13:29 Nucleated RBC % (auto) 0.7 % 06/03/25 13: Nucleated RBCs # 0.1 /100WBC 06/03/25 13:29 Sodium 138 mmol/L (136-145) 06/03/25 13:29 Potassium 5.0 mmol/L (3.5-5.1) 06/03/25 13:29 Chloride 103 mmol/L (98-107) 06/03/25 13:29 Carbon Dioxide 16 mmol/L (22-29) L 06/03/25 13:29 Anion Gap 24.0 (5-19) H 06/03/25 13:29 BUN 104 mg/dL (8-23) H* D 06/03/25 13:29 Creatinine 4.3 mg/dL (0.5-0.9) H 06/03/25 13:29 GFR Calculation Not Reportable 06/03/25 13:29 Glucose 98 mg/dL (65-115) 06/03/25 13:29 Calculated Osmolality 319 mOsm/kg (285-295) H 06/03/25 13:29 Lactic Acid 1.3 mmol/L (0.5-2.2) 06/03/25 13:29 Calcium 9.8 mg/dL (8.5-10.5) 06/03/25 13:29 Total Bilirubin 0.3 mg/dL (0.15-1.2) 06/03/25 13:29 AST 24 U/L (0-32) 06/03/25 13:29 ALT < 5 U/L (0-33) 06/03/25 13:29 Alkaline Phosphatase 80 U/L (35-105) 06/03/25 13:29 Troponin T Baseline 187 ng/L (0-10) H* 06/03/25 13:29 C-Reactive Protein 12.4 mg/L (0.0-4.9) H 06/03/25 13:29 NT-Pro-B Natriuret Pep 51254 pg/mL (0-450) H 06/03/25 13:29 Total Protein 6.4 g/dL (6.6-8.7) L 06/03/25 13:29 Albumin 4.0 g/dL (3.5-5.2) 06/03/25 13:29 Globulin 2.4 g/dL (1.3-4.6) 06/03/25 13:29 All radiology interpretation(s) finalized by discharge Discharge Plan Discharge Patient Disposition: Placed in Observation Admit Provider: Skinny Mckeon Clinical Impression: Acute on chronic renal insufficiency, Lightheadedness Coding Level of Care Code ED [employer] Ware[employer] for Dudley Agarwal
[2025-06-03 13:58] LABS: Hematocrit 30.2 % (36-47); Hemoglobin 9.70 g/dL (11.27-16.99); Mean Corpuscular HGB Conc 32.1 g/dL (30-55); Mean Corpuscular Hemoglobin 35.4 pg (27-33); Mean Corpuscular Volume 110.2 fl (85-98); Nucleated Red Blood Cells % 0.7 %; Platelet Count 247 10^3/cmm (157-399); Red Blood Count 2.74 10^6/uL (3.85-5.65); White Blood Count 9.34 10^3/uL (3.29-11.43)
[2025-06-03 14:16] LABS: Lactic Sepsis W/Reflex 1.3 mmol/L (0.5-2.2)
[2025-06-03 14:21] LABS: Troponin(5th) Baseline 187 ng/L (0-10)
[2025-06-03 14:31] LABS: Alanine Aminotransferase < 5 U/L (0-33); Albumin Level 4.0 g/dL (3.5-5.2); Alkaline Phosphatase 80 U/L (35-105); Anion Gap 24.0 (5-19); Aspartate Amino Transferase 24 U/L (0-32); Calcium 9.8 mg/dL (8.5-10.5); Carbon Dioxide 16 mmol/L (22-29); Chloride 103 mmol/L (98-107); Creatinine Clr Calc Pharmacy 12.4924; Globulin 2.4 g/dL (1.3-4.6); Glucose 98 mg/dL (65-115); Osmolality Calculated 319 mOsm/kg (285-295); Potassium 5.0 mmol/L (3.5-5.1); Sodium 138 mmol/L (136-145); Total Protein 6.4 g/dL (6.6-8.7)
[2025-06-03 14:33] LABS: Blood Urea Nitrogen 104 mg/dL (8-23)
--- NOTE | 2025-06-03 14:35 | PC.PHAR ---
Pt uses [employer] mail order for the [facility] for life program and uses [facility] for local meds.
[2025-06-03 14:52] LABS: NT Pro B Type Natriuretic Pept 41925 pg/mL (0-450)
--- NOTE | 2025-06-03 14:58 | ECG_ITS ---
[employer] Test Date: 2025-06-03 Pat Name: Maryjo Lynn Department: Room: Gender: Female Lens Edger: : 1945 Requested By: Darya Contreras Order Number: [id number] Reading MD: NIKO REED Measurements Intervals [place] Rate: 62 P: 55 MS: 183 QRS: 50 QRSD: 129 T: 204 QT: 461 QTc: 468 Interpretive Statements SINUS RHYTHM ANTEROSEPTAL MYOCARDIAL INFARCTION , OF INDETERMINATE AGE [40+ ms Q WAVE IN V1-V4] Compared to ECG 06/03/2025 13:04:33 Intraventricular conduction delay no longer present Myocardial infarct finding still present Electronically Signed On 06-06-2025 21:16:25 CDT by NIKO REED [email or web address]
[2025-06-03 16:54] LABS: Troponin 5 2HR 183.3 ng/L (0-10); Troponin 5 2HR Delta -3.7 ABS# (0-10)
--- NOTE | 2025-06-03 17:55 | PM.HP ---
Providers/Chief Complaint Admitting Physician: Skinny Mckeon MD Primary Care Provider: Haider Cancino MD Chief Complaint: Dizzy Low Bp Weaking swelling Legs/Feet History of Present Illness Maryjo Lynn is a 79 year old female with history of congestive heart failure with EF 35 to 40% plus morbid obesity and sleep apnea comes in with acute renal failure oliguric. She states her urine output is fallen off last 1 week. She is on Entresto the last 9 months and torsemide for at least 5 years. Patient states she has walked with a walker for 10 years due to knee and back pain. She has history of falls a few times but longest she was on the ground was 20 minutes. She is dizzy and lightheaded when standing and her blood pressure was 80 on arrival BUN 104 creatinine 4.3. She has chronic kidney disease and takes no NSAIDs. Patient has nonischemic cardiomyopathy based on myocardial perfusion scan as recently as 11/05/2024 showing medium sized prior infarct in the LAD territory but no reversible ischemia. LV function reduced to 24% EF on that nuclear imaging. Echo showed EF 35 to 40%. Review of Systems Narrative: General No fevers chills weight she weighed 236 3 weeks ago then was up to 248 and then 254 2 weeks ago. She fell off the scale so was not reweighed. She thinks she is lost some weight or dried out since then. 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 or discharge Neuro no seizures or strokes Hematologic no history of clots in legs or lungs Malignancy history positive only for basal cell carcinoma in the nose Medications/Allergies Home Medications ?Medication ?Instructions ?Recorded ?Confirmed ?Last Taken ?Type carbidopa ER 50 mg-levodopa 200 mg 1 tab PO TID 09/09/19 06/03/25 06/03/25 History tablet,extended release montelukast 10 mg tablet 10 mg PO BEDTIME 09/09/19 06/03/25 06/02/25 History (Singulair) gabapentin 300 mg capsule 300 mg PO BEDTIME 11/29/20 06/03/25 06/02/25 History cetirizine 10 mg tablet (Zyrtec) 10 mg PO DAILY PRN Allergy Symptoms 05/11/21 06/03/25 10/22/24 History sennosides 8.6 mg-docusate sodium 1 tab PO DAILY PRN Constipation 12/05/21 06/03/25 10/21/24 History 50 mg tablet (Senna Plus) chlorpheniramine maleate 4 mg 4 mg PO BEDTIME PRN Itching 06/12/22 06/03/25 10/21/24 History tablet (Aller-Chlor) multivitamin 1 tab PO DAILY 06/12/22 06/03/25 06/03/25 History fluticasone propionate 50 2 spray intranasal .hs 07/12/22 06/03/25 06/02/25 History mcg/actuation nasal spray,suspension (Flonase Allergy Relief) pantoprazole 40 mg tablet,delayed 40 mg PO BID #90 tabs 07/12/22 06/03/25 06/03/25 Rx release kcyoakukqdf-vrz-bcrkosktm-vitC 1 cap PO BID 01/17/23 06/03/25 06/03/25 History capsule (Glucosamine Complex-MSM capsule) turmeric root extract 500 mg 3,000 mg PO DAILY 11/22/23 06/03/25 06/03/25 History capsule diclofenac sodium 1 % topical gel See Rx Instructions .Route 05/22/24 06/03/25 Unknown Rx .COMPLEX #300 grams cyclobenzaprine 10 mg tablet 10 mg PO BEDTIME 05/23/24 06/03/25 06/02/25 History fluticasone 500 mcg-salmeterol 50 1 inh inhalation BID 05/23/24 06/03/25 06/03/25 History mcg/dose blistr powdr for inhalation (Advair Diskus) zolpidem 5 mg tablet (Ambien) 2.5 mg PO BEDTIME PRN Insomnia 05/23/24 06/03/25 10/21/24 History atorvastatin 40 mg tablet 40 mg PO DAILY #90 tabs 12/30/24 06/03/25 06/02/25 Rx bisoprolol fumarate 5 mg tablet 2.5 mg (1/2 x 5 mg) PO DAILY #45 12/30/24 06/03/25 06/03/25 Rx tabs torsemide 20 mg tablet 10 mg PO DAILY 02/03/25 06/03/25 Unknown History hydrocodone 5 mg-acetaminophen 325 1 tab PO Q6H PRN Pain 03/03/25 06/03/25 Unknown History mg tablet allopurinol 100 mg tablet 200 mg (2 x 100 mg) PO DAILY #180 03/16/25 06/03/25 06/03/25 Rx tabs albuterol sulfate 90 mcg/actuation 2 puff inhalation QID PRN Wheezing 06/03/25 06/03/25 Unknown History aerosol inhaler clindamycin phosphate 1 % lotion 1 applic topical DAILY PRN skin 06/03/25 06/03/25 Unknown History rash estradiol 0.01% (0.1 mg/gram) 1 g vaginal DAILY 06/03/25 06/03/25 Unknown History vaginal cream hydroxychloroquine 200 mg tablet See Rx Instructions .Route .COMPLEX 06/03/25 06/03/25 06/03/25 History (Plaquenil) levothyroxine 150 mcg tablet 150 mcg PO DAILY 06/03/25 06/03/25 06/03/25 History (Synthroid) lidocaine 5 % topical patch 1 patch topical DAILY PRN Pain 06/03/25 06/03/25 Unknown History mometasone 0.1 % topical solution 1 applic topical DAILY PRN skin 06/03/25 06/03/25 Unknown History rash sacubitril 24 mg-valsartan 26 mg See Rx Instructions .Route .COMPLEX 06/03/25 06/03/25 06/03/25 History tablet (Entresto) triamcinolone acetonide 0.1 % 1 applic topical DAILY PRN skin 06/03/25 06/03/25 Unknown History topical cream rash Allergies Allergy/AdvReac Type Severity Reaction Status Date / Time adhesive tape Allergy Intermediate rash, Verified 03/03/25 10:26 itch, DERMABOND 2-octyl cyanoacrylate Allergy ALGY-Bliste Verified 03/03/25 10:26 r DANNY Inhibitors Allergy ADR-Cough Verified 03/03/25 10:26 povidone-iodine (From Allergy ALGY-Bliste Verified 03/03/25 10:26 Betadine) r propranolol (From Inderal LA) Allergy ADR-Depress Verified 03/03/25 10:26 ion soap (From Betadine) Allergy ALGY-Bliste Verified 03/03/25 10:26 r verapamil Allergy ADR-Headach Verified 03/03/25 10:26 e PFSH Acute PFSH: Medical History (Updated 06/03/25 @ 18:06 by Skinny Mckeon MD) Sleep apnea treated with continuous positive airway pressure (CPAP) Episcleritis History of iron deficiency anemia Anxiety and depression Peripheral neuropathy Hypothyroidism GERD (gastroesophageal reflux disease) Morbid obesity with BMI of 45.0-49.9, adult Stenosis of cervical spine with myelopathy Cervical disc disorder with myelopathy of mid-cervical region Intervertebral disc disorder with radiculopathy of lumbosacral region Sleep apnea Dyslipidemia Obesity Nonischemic cardiomyopathy Essential hypertension Hyperuricemia CKD (chronic kidney disease) MGUS (monoclonal gammopathy of unknown significance) Degenerative lumbar spinal stenosis Erosive osteoarthritis Gout, arthritis Surgical History Status post surgical removal of malignant neoplasm of skin Basal cell carcinoma History of lumbar laminectomy (05/13/21) Lumbar laminectomy at L4 and L5 with L4/5 interbody fusion and with L5/S1 interbody fusion History of surgical removal of ganglion cyst right wrist History of knee joint replacement Left 06/2018 right 12/2017 Hx of foot surgery Right x2-sub talur fusoin and arthrodesis Hx of hysterectomy Hx of bilateral oophorectomy with Dr. Watts at [facility] in 1982 and left side 2010 right side done when had hysterectomy at [place] Hx of tonsillectomy Status post reverse arthroplasty of right shoulder History of arthroplasty of left shoulder Family History Son Sarcoidosis Mother Cancer Sister Rheumatoid arthritis Grandmother Diabetes Father Cancer Myocardial infarction Social History (Updated 06/03/25 @ 18:03 by Skinny Mckeon MD) Smoking and tobacco/nicotine status: never used tobacco/nicotine Second hand smoke exposure: No Alcohol intake: current Alcohol intake frequency: holidays/special occasions only Substance/Drug Use: never Additional social history: 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, 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 she wants full code including brief intubation but not prolong life support as discussed with Skinny Mckeon MD on 06/03/2025 and in the presence of her goyrxyvo-gi-uza Talisha Lynn Household members: spouse Marital status: Current occupational status: retired 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 Vitals/I&O/Wt Last Vital Signs Temp 97.8 F 06/03/25 12:52 Pulse 64 06/03/25 17:15 Resp 23 H 06/03/25 16:30 BP 131/74 06/03/25 17:15 Pulse Ox 95 06/03/25 17:15 O2 Del Method Room Air 06/03/25 17:15 06/03/25 06/03/25 06/03/25 06:59 14:59 22:59 Intake Total 1000 / 1000 Balance 1000 / 1000 Weight last 48 hrs Weight 108.862 kg Physical Exam Narrative: General well-developed well-nourished morbidly obese female in no acute cardiopulmonary stress Oropharynx Mallampati 2 CV regular rate and rhythm Lungs bibasilar crackles heard incompletely cleared with deep breaths Abdomen positive bowel tones soft obese nontender Calves 2+ bilateral pretibial edema Radial pulses 2/4 Mood and affect normal Weight 108 kg she has been stable at that weight starting at 115 kg 2019 max was 121 kg 2019 Data 06/03/25 13:29 06/03/25 13:29 Micro: Microbiology 06/03/25 13:27 Blood Culture - Preliminary Blood SPECIMEN COLLECTED 06/03/25 13:29 Blood Culture - Preliminary Blood SPECIMEN COLLECTED A&P Assessment and plan 1. Acute renal failure with oliguria: Place Romeo and give LR fluid bolus and bicarbonate containing fluids. If not making urine we will give furosemide 2. Chronic systolic heart failure: EF 25 to 35% based on recent nuclear images and echo. Initiate CPAP for sleep but if she gets short of breath or develops crackles that worsen will need diuretics and BiPAP 3. Morbid obesity with BMI of 45.0-49.9, adult: Start 1600-calorie ADA weight loss diet 4. Sleep apnea treated with continuous positive airway pressure (CPAP): Resume home CPAP patient is going to have someone bring it in PDMP PDMP Reviewed: Not Reviewed Attestations Medical Necessity Statement*: Patient will require greater than 2 midnights in the hospital and will be made inpatient Coding Level of Care Code 99366 Diagnoses Acute renal failure with oliguria N17.9; R34 Chronic systolic heart failure I50.22 Heart failure type: systolic Heart failure chronicity: chronic Morbid obesity with BMI of 45.0-49.9, adult E66.01; Z68.42 Sleep apnea treated with continuous positive airway pressure (CPAP) G47.30 Time Spent (min) 70
[2025-06-03 18:55] LABS: Glucose Urine UA Negative (Normal); Nitrate Urine Negative (Negative); Specific Gravity, Urine 1.013 (1.005-1.030)
--- NOTE | 2025-06-03 18:58 | ECG_ITS ---
[facility] Test Date: 2025-06-03 Pat Name: Maryjo Lynn Department: Room: 256 Gender: Female Director Of Respiratory Therapy: : 1945 Requested By: Darya Contreras Order Number: [id number] Reading MD: NIKO REED Measurements Intervals [place] Rate: 64 P: 63 ND: 164 QRS: 64 QRSD: 110 T: 209 QT: 435 QTc: 449 Interpretive Statements SINUS RHYTHM LOW QRS VOLTAGE [QRS DEFLECTION < 0.5/1.0 mV IN LIMB/CHEST LEADS] SEPTAL MYOCARDIAL INFARCTION , OF INDETERMINATE AGE [40+ ms Q WAVE IN V1/V2] Compared to ECG 06/03/2025 14:23:33 Low QRS voltage now present Myocardial infarct finding still present Electronically Signed On 06-06-2025 21:16:53 CDT by NIKO REED [email or web address]
[2025-06-03 19:23] LABS: UA Slide Review UA Slide Review Perf
[2025-06-03 19:43] LABS: Troponin 5 6HR 162.2 ng/L (0-10); Troponin 5 6HR Delta -24.8 ng/L (0-12)
[2025-06-03 19:47] LABS: Anion Gap 21.3 (5-19); Calcium 9.5 mg/dL (8.5-10.5); Carbon Dioxide 18 mmol/L (22-29); Chloride 105 mmol/L (98-107); Creatinine Clr Calc Pharmacy 12.2085; Glucose 100 mg/dL (65-115); Osmolality Calculated 321 mOsm/kg (285-295); Potassium 5.3 mmol/L (3.5-5.1); Sodium 139 mmol/L (136-145)
[2025-06-03 19:58] LABS: Blood Urea Nitrogen 104 mg/dL (8-23)
[2025-06-03 21:43] LABS: Thyroid Stimulating Hormone 9.12 uIU/mL (0.27-4.20)
[2025-06-03] MEDS: carbidopa-levodopa ER 50-200mg Tablet 1 EACH PO (21:57)
[2025-06-04] VITALS (8 sets, daily range): BP systolic 100–109; BP diastolic 51–73; PULSE 68–89; RESP 15–18; TEMP 36.3–37.1; O2SAT 92–96
[2025-06-04] MEDS: HYDROcodone-acetaminophen 5-325 mg Tablet 1 TAB PO ×2 (03:18→13:20)
[2025-06-04] MEDS: carbidopa-levodopa ER 50-200mg Tablet 1 EACH PO ×3 (04:15→21:16)
[2025-06-04 05:40] LABS: Anion Gap 21.5 (5-19); Calcium 9.3 mg/dL (8.5-10.5); Carbon Dioxide 19 mmol/L (22-29); Chloride 105 mmol/L (98-107); Creatinine Clr Calc Pharmacy 15.0258; Glucose 131 mg/dL (65-115); Magnesium 2.5 mg/dL (1.7-2.3); Osmolality Calculated 325 mOsm/kg (285-295); Potassium 4.5 mmol/L (3.5-5.1); Sodium 141 mmol/L (136-145)
[2025-06-04 05:49] LABS: Blood Urea Nitrogen 101 mg/dL (8-23)
--- OUTSIDE RECORDS SUMMARY | 2025-06-04 09:14 | XMS_ITS | Encounter Summary ---
Author Organization [facility] Address [address] [place] [address] Care Team Providers Care Ship Harbor Pilot Name Role Phone Tip Manning DO Primary Care Provider Encounter Details Date Type Department Care Team (Latest Contact Info) Description 12/29/[address] 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
--- OUTSIDE RECORDS SUMMARY | 2025-06-04 09:14 | XMS_ITS | Encounter Summary ---
Author Organization [facility] Address [address] [place] [address] Care Team Providers Care Rn Field Case Manager Name Role Phone Tip Manning DO Primary Care Provider Encounter Details Date Type Department Care Team (Latest Contact Info) Description 06/26/2005 Outpatient Historical [facility] Rheumatology- [facility] [place] [address] [place] [phone] Rachel Desai MD [address] [place], [place] [id number] GENERAL OSTEOARTHROSIS (Primary Dx) Social History Tobacco Use Types Packs/Day Years Used Date Smoking Tobacco: Never Assessed Comments Unknown Sex and Gender Information Value Date Recorded Sex Assigned at Not on file 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
--- OUTSIDE RECORDS SUMMARY | 2025-06-04 09:14 | XMS_ITS | Encounter Summary ---
Author Organization [facility] Address [address] [place] [address] Care Team Providers Care Die Designer Apprentice Name Role Phone Tip Manning DO Primary Care Provider Encounter Details Date Type Department Care Team (Latest Contact Info) Description 10/24/2006 Outpatient Historical [facility] Rheumatology- [facility] [place] [address] [place] [phone] Rachel Desai MD [address] [place], [place] [id number] Osteoarthrosis, Unspecified Whether Generalized or Localized, Hand (Primary Dx) Social History Tobacco Use Types Packs/Day Years Used Date Smoking Tobacco: Never Assessed Comments Unknown Sex and Gender Information Value Date Recorded Sex Assigned at Not on file 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
--- OUTSIDE RECORDS SUMMARY | 2025-06-04 09:14 | XMS_ITS | Clinical Summary ---
Author Organization [facility] Address [address] 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
--- OUTSIDE RECORDS SUMMARY | 2025-06-04 09:14 | XMS_ITS | Clinical Summary ---
Author Organization [facility] Address [address] [address] Care Team Providers Care Manager Mechanical Maintenance Name Role Phone Haider Cancino MD Primary Care Provider [phone] Allergies Active Allergy Reactions Criticality Noted Date [...] Department Care Team Description 05/06/2025 Patient Outreach [facility] [address] [place] [facility] [address] [place] [address] Rosana Clark 03/17/2025 10:30 AM CDT Office Visit [facility] [address] [place] [phone] Margarita Han NP Monoclonal gammopathy of undetermined significance (MGUS) (Primary Dx); Hyperuricemia; 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, not otherwise specified; Essential (primary) hypertension; Chronic kidney disease, Stage IV (severe) (HCC); Anemia in chronic kidney disease 03/10/2025 Telephone [facility] [address] [place] [address] Marilyn Elder MA 03/09/2025 Orders Only [facility] [address] [place] [address] Margarita Han NP Chronic kidney [...] - Oxygen Saturation 96% 09/09/2024 10:37 AM WAXING MACHINE OPERATOR HELPER Inhaled Oxygen Concentration - - Weight 108 kg (237 lb) 03/17/2025 10:35 AM CDT Height 154.9 cm (5' 1 ) 03/17/2025 10:35 AM CDT Body Mass Index 44.78 03/17/2025 10:35 AM CDT Plan of Treatment Upcoming Encounters Date Type Department Care Team (Late st Contact Info) Description 09/16/2025 10:00 AM WAXING MACHINE OPERATOR HELPER Office Visit [facility] [address] [place] [address] Margarita Han, MIKE [address] [phone] Health Maintenance Due Date Last Done Comments [...] Performing Organization Information: Site ID: MARGARET Name: [facility] Address: [address] [address] Director: Calvin Noyola MD Margarita Han NP LAB URINE ORDERABLES Final Resu lt Performing Organization Address City/State/[facility] de Phone Number [facility] [address] [place] [address] * Vit D 25 hydroxy (03/10/2025 9:10 [...] D, (D2,D3), LC/MS/MS is recommended: order code [id number] (patients >2yrs). See Note 1 Note 1 For additional information, please refer to http://education.Axceler/faq/ESF378 (This link is being provided for informational/ educational purposes only.) Blood specimen (specimen) Venous blood / Unknown 03/10/2025 9:10 AM CDT 03/10/2025 9:10 AM CDT Narrative Resulting Agency Comment Performing Organization Information: Site ID: [place] Name: [facility] Address: [address] [place] [phone] Director: Calvin Noyola MD Margarita Han NP LAB BLOOD ORDERABLES Final Resu Performing Organization Address [facility] Co de Phone Number [facility] [address] [place] [address] * (ABNORMAL) CBC (03/10/2025 9:10 AM CDT) Pathologist [facility] WBC 10.8 3.8 - 10.8 Thousand/u L [...] Agency Comment Performing Organization Information: Site ID: [place] Name: [facility] Address: [address] [place] [phone] Director: Calvin Noyola MD Margarita Han NP LAB BLOOD ORDERABLES Final Resu lt [facility] [address] [place] [phone] * PTH, intact (03/10/2025 9:10 AM CDT) [...] Site ID: MARGARET Name: [facility] Address: [address] [address] Director: Calvin Noyola MD Margarita Han GOLD BURNISHER LAB BLOOD ORDERABLES Final Resu lt [facility] [place] [address] * (ABNORMAL) Renal function panel (03/10/2025 9:10 [...] Site ID: MARGARET Name: [facility] Address: [address] [address] Director: Calvin Noyola MD Margarita Han GOLD BURNISHER LAB BLOOD ORDERABLES Final Resu lt [facility] [address] [phone] from Last 3 Months Insurance Medicare [facility] Care Teams Manager Mechanical Maintenance Relationship Specialty Start Date End Date Haider Cancino MD [address] [place] [phone] PCP - General Family Medicine 09/09/24
--- OUTSIDE RECORDS SUMMARY | 2025-06-04 09:14 | XMS_ITS | Encounter Summary ---
Author Organization [facility] Address [address] [place] [address] Phone Care Team Providers Care Afternoon Nanny Name Role Phone Haider Cancino MD Primary Care Provider [phone] Encounter Details Date Type Department Care Team (Late st Contact Info) Description 04/03/2022 Orders Only [facility] [address] [place] [address] Serum creatinine raised Social History [...] st Contact Info) Description 09/16/2025 10:00 AM TRACK ANNOUNCER Office Visit [facility] [address] [place] [address] Margarita Han NP [address] [place] [address] documented as of this encounter Visit Diagnoses Diagnosis Serum creatinine raised documented in this encounter Care Teams Afternoon Nanny Relationship Specialty Start Date End Date Haider Cancino MD [address] [place] [phone] PCP - General Family Medicine 09/09/24 documented as of this encounter
--- OUTSIDE RECORDS SUMMARY | 2025-06-04 09:14 | XMS_ITS | Encounter Summary ---
Author Organization [facility] Address [address] [place] [address] Care Team Providers Care Sanitary Aide Name Role Phone Tip Manning DO Primary Care Provider Encounter Details Date Type Department Care Team (Latest Contact Info) Description 04/25/2006 Outpatient Historical [facility] Rheumatology- [facility] [place] [address] [place] [phone] Rachel Desai MD [address] [place], [place] [phone] Generalized Osteoarthrosis, Involving Multiple Sites (Primary Dx); Encounter for Long-Term (Current) Use of Other Medications Social History Tobacco Use Types Packs/Day Years Used Date Smoking Tobacco: Never Assessed Comments Unknown Sex and Gender Information Value Date Recorded Sex Assigned at Not on file Legal Sex Female 4: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
--- NOTE | 2025-06-04 12:14 | P.PN_ITS ---
Subjective 2 Subjective: 79-year-old female with acute kidney justina lure on chronic kidney disease has had fluid resuscitation after presumed overdiuresis but only put 600 cc output overnight and 200 cc since 6 AM. Patient did wear her CPAP last night home unit [facility] 11. Patient reports difficulty swallowing meat and bread states that it gets stuck. She does not choke on the food this started in the last couple weeks Vitals/I&O/Wt Last Vital Signs Temp 97.4 F L 06/04/25 11:21 Pulse 68 06/04/25 11:21 Resp 18 06/04/25 11:21 BP 105/66 06/04/25 11:21 Pulse Ox 93 06/04/25 11:21 O2 Del Method Room Air 06/04/25 11:21 FiO2 21 06/03/25 21:33 06/03/25 06/04/25 06/04/25 22:59 06:59 14:59 Intake Total 2035 / 2035 1115 / 3150 1510 / 1510 Output Total 400 / 400 200 / 600 Balance 1635 / 1635 915 / 2550 1510 / 1510 Weight last 48 hrs Weight 125.191 kg Weight 125.277 kg Weight 108.862 kg Physical Exam 2 Narrative: General well-developed well-nourished morbidly obese female in no acute cardiopulmonary stress Oropharynx Mallampati 2 CV regular rate and rhythm Lungs bibasilar crackles heard incompletely cleared with deep breaths Abdomen positive bowel tones soft obese nontender Calves 2+ to 3 bilateral pretibial edema Radial pulses 2/4 Mood and affect normal Weight 125 kg Urinary Catheter Management: Romeo: Cath Placed During This Visit: yes Reason for Continuing Indwelling Catheter: Other Urinary Catheter Date of Insertion: 06/03/25 Urinary Catheter Time of Insertion: 18:38 Data 06/03/25 13:29 06/04/25 04:50 Micro: Microbiology 06/03/25 13:27 Blood Culture - Preliminary Blood SPECIMEN COLLECTED 06/03/25 13:29 Blood Culture - Preliminary Blood SPECIMEN COLLECTED A&P Assessment and plan 1. Acute renal failure with oliguria: Place Romeo and give LR fluid bolus and bicarbonate containing fluids. Will give large dose of furosemide and also consult Dr. Putnam from nephrology 2. Chronic systolic heart failure: EF 25 to 35% based on recent nuclear images and echo. Initiate CPAP for sleep but if she gets short of breath or develops crackles that worsen will need diuretics and BiPAP 3. Morbid obesity with BMI of 45.0-49.9, adult: Start 1600-calorie ADA weight loss diet 4. Sleep apnea treated with continuous positive airway pressure (CPAP): Resume home CPAP patient is going to have someone bring it in 5. Esophageal dysphagia: Will obtain esophagram PDMP PDMP Reviewed: Not Reviewed Attestations 2 Medical Necessity Statement*: Patient with oliguric renal failure requiring nephrology and potential dialysis and will be in the hospital for additional 2 midnights Coding Level of Care Code 90794 Diagnoses Acute renal failure with oliguria N17.9; R34 Chronic systolic heart failure I50.22 Heart failure type: systolic Heart failure chronicity: chronic Morbid obesity with BMI of 45.0-49.9, adult E66.01; Z68.42 Sleep apnea treated with continuous positive airway pressure (CPAP) G47.30 Esophageal dysphagia R13.10 Time Spent (min) 40
--- NOTE | 2025-06-04 12:46 | FL_ITS ---
WS: [id number] Exam: FL barium swallow [id number] Date/Time of Exam: 06/04/2025 1:45 PM Reason For Exam: meat and bread sticks in esophagus Fluoroscopy time: 0min [id number] minutes # of spot films: Limited AP esophagram was performed due to the patient's inability to tolerate the usual positioning for the test. Oropharyngeal phase of swallowing was grossly normal. There is leftward deviation of the esophagus near the cervical thoracic junction which most likely is secondary to a mediastinal mass. This may represent displacement from goitrous enlargement of the thyroid gland. There is tertiary esophageal spasm noted. No intrinsic esophageal mass identified. No esophageal stricture. A prominent hiatal hernia is noted. FL/FL barium swallow [id number] IMPRESSION: 1. Limited esophagram showing extrinsic leftward esophageal displacement most l ikely secondary to a mediastinal mass. This may be secondary to goiter. 2. No intrinsic esophageal mass was seen. 3. Esophageal spasm and moderate-sized hiatal hernia were noted.
[2025-06-04] MEDS: FUROsemide 10 mg/mL SDV 10mL 80 MG IVP (13:13)
--- NOTE | 2025-06-04 14:50 | PM.CONSULT ---
Providers/Reason For Consult Consulting Physician/Specialty*: [facility]/Nephrology Reason for Consult*: ANDER oN ckd Attending Physician: Skinny Mckeon MD Primary Care Provider: Haider Cancino MD History of Present Illness History of Present Illness Maryjo Lynn is a 79 year old female Patient is a 79-year-old female with past medical history of CHF with ejection fraction 35 to 40%, morbid obesity, sleep apnea, chronic renal insufficiency with a baseline creatinine seems to be in the mid 1 range presented to the emergency department due to decreased urine output, low blood pressure and dizziness and weakness. In the ER patient was noted to have ANDER with a creatinine of 4.3 BUN of 104. Patient is followed by [facility] as outpatient. Also patient has a known history of smoldering myeloma was followed by oncology as outpatient but lost to follow-up and currently followed by PCP. She received total of 3 L IV fluid so far and Creatinine today is 3.9. Home medications included Entresto which was started 9 months ago but the dose increased 3 months ago. Patient reports that blood pressures are low and she feels dizzy for the last 3 months since the dose of Entresto was increased and also reports poor p.o. intake. She also takes torsemide 20 mg daily. Review of Systems Narrative: negative Medications/Allergies Home Medications ?Medication ?Instructions ?Recorded ?Confirmed ?Last Taken ?Type carbidopa ER 50 mg-levodopa 200 mg 1 tab PO TID 09/09/19 06/03/25 06/03/25 History tablet,extended release montelukast 10 mg tablet 10 mg PO BEDTIME 09/09/19 06/03/25 06/02/25 History (Singulair) gabapentin 300 mg capsule 300 mg PO BEDTIME 11/29/20 06/03/25 06/02/25 History cetirizine 10 mg tablet (Zyrtec) 10 mg PO DAILY PRN Allergy Symptoms 05/11/21 06/03/25 10/22/24 History sennosides 8.6 mg-docusate sodium 1 tab PO DAILY PRN Constipation 12/05/21 06/03/25 10/21/24 History 50 mg tablet (Senna Plus) chlorpheniramine maleate 4 mg 4 mg PO BEDTIME PRN Itching 06/12/22 06/03/25 10/21/24 History tablet (Aller-Chlor) multivitamin 1 tab PO DAILY 06/12/22 06/03/25 06/03/25 History fluticasone propionate 50 2 spray intranasal .hs 07/12/22 06/03/25 06/02/25 History mcg/actuation nasal spray,suspension (Flonase Allergy Relief) pantoprazole 40 mg tablet,delayed 40 mg PO BID #90 tabs 07/12/22 06/03/25 06/03/25 Rx release ilkzvkvmtmy-tbs-pctnoaooy-vitC 1 cap PO BID 01/17/23 06/03/25 06/03/25 History capsule (Glucosamine Complex-MSM capsule) turmeric root extract 500 mg 3,000 mg PO DAILY 11/22/23 06/03/25 06/03/25 History capsule diclofenac sodium 1 % topical gel See Rx Instructions .Route 05/22/24 06/03/25 Unknown Rx .COMPLEX #300 grams cyclobenzaprine 10 mg tablet 10 mg PO BEDTIME 05/23/24 06/03/25 06/02/25 History fluticasone 500 mcg-salmeterol 50 1 inh inhalation BID 05/23/24 06/03/25 06/03/25 History mcg/dose blistr powdr for inhalation (Advair Diskus) zolpidem 5 mg tablet (Ambien) 2.5 mg PO BEDTIME PRN Insomnia 05/23/24 06/03/25 10/21/24 History atorvastatin 40 mg tablet 40 mg PO DAILY #90 tabs 12/30/24 06/03/25 06/02/25 Rx bisoprolol fumarate 5 mg tablet 2.5 mg (1/2 x 5 mg) PO DAILY #45 12/30/24 06/03/25 06/03/25 Rx tabs torsemide 20 mg tablet 10 mg PO DAILY 02/03/25 06/03/25 Unknown History hydrocodone 5 mg-acetaminophen 325 1 tab PO Q6H PRN Pain 03/03/25 06/03/25 Unknown History mg tablet allopurinol 100 mg tablet 200 mg (2 x 100 mg) PO DAILY #180 03/16/25 06/03/25 06/03/25 Rx tabs albuterol sulfate 90 mcg/actuation 2 puff inhalation QID PRN Wheezing 06/03/25 06/03/25 Unknown History aerosol inhaler clindamycin phosphate 1 % lotion 1 applic topical DAILY PRN skin 06/03/25 06/03/25 Unknown History rash estradiol 0.01% (0.1 mg/gram) 1 g vaginal DAILY 06/03/25 06/03/25 Unknown History vaginal cream hydroxychloroquine 200 mg tablet See Rx Instructions .Route .COMPLEX 06/03/25 06/03/25 06/03/25 History (Plaquenil) levothyroxine 150 mcg tablet 150 mcg PO DAILY 06/03/25 06/03/25 06/03/25 History (Synthroid) lidocaine 5 % topical patch 1 patch topical DAILY PRN Pain 06/03/25 06/03/25 Unknown History mometasone 0.1 % topical solution 1 applic topical DAILY PRN skin 06/03/25 06/03/25 Unknown History rash sacubitril 24 mg-valsartan 26 mg See Rx Instructions .Route .COMPLEX 06/03/25 06/03/25 06/03/25 History tablet (Entresto) triamcinolone acetonide 0.1 % 1 applic topical DAILY PRN skin 06/03/25 06/03/25 Unknown History topical cream rash Allergies Allergy/AdvReac Type Severity Reaction Status Date / Time adhesive tape Allergy Intermediate rash, Verified 03/03/25 10:26 itch, DERMABOND 2-octyl cyanoacrylate Allergy ALGY-Bliste Verified 03/03/25 10:26 r DANNY Inhibitors Allergy ADR-Cough Verified 03/03/25 10:26 povidone-iodine (From Allergy ALGY-Bliste Verified 03/03/25 10:26 Betadine) r propranolol (From Inderal LA) Allergy ADR-Depress Verified 03/03/25 10:26 ion soap (From Betadine) Allergy ALGY-Bliste Verified 03/03/25 10:26 r verapamil Allergy ADR-Headach Verified 03/03/25 10:26 e Current Medications Generic Name Dose Route Start Last Admin Trade Name Freq PRN Reason Stop Dose Admin Hydrocodone Bitart/Acetaminophen 1 tab 06/03/25 20:53 06/04/25 13:20 Hydrocodone-Acetaminophen 5-325 Mg Tablet PO 1 tab Q6H PRN Administration PAIN Carbidopa/Levodopa 1 each 06/03/25 21:00 06/04/25 13:13 Carbidopa-Levodopa Er 50-200mg Tablet PO 1 each TID MAL Administration Cyclobenzaprine HCl 10 mg 06/03/25 21:00 06/03/25 21:57 Cyclobenzaprine 10 Mg Tablet PO 10 mg BEDTIME MAL Administration Gabapentin 300 mg 06/03/25 21:00 06/03/25 21:57 Gabapentin 300 Mg Capsule PO 300 mg BEDTIME MAL Administration Sodium Bicarbonate 150 meq/ 1,150 mls @ 150 mls/hr 06/03/25 17:30 06/04/25 09:01 Dextrose IV 150 mls/hr .Q7H40M MAL Administration Levothyroxine Sodium 150 mcg 06/04/25 05:00 06/04/25 04:15 Levothyroxine 150 Mcg Tablet PO 150 mcg DAILY MAL Administration Montelukast Sodium 10 mg 06/03/25 21:00 06/03/25 21:57 Montelukast Sodium 10 Mg Tablet PO 10 mg BEDTIME MAL Administration Pantoprazole Sodium 40 mg 06/04/25 05:00 06/04/25 04:[address] 40 Mg Tablet PO 40 mg DAILY MAL Administration Zolpidem Tartrate 2.5 mg 06/03/25 20:53 06/03/25 21:57 Zolpidem 5 Mg Tablet PO 2.5 mg BEDTIME PRN Administration INSOMNIA PFSH Acute PFSH: Medical History (Updated 06/04/25 @ 12:45 by Skinny Mckeon MD) Sleep apnea treated with continuous positive airway pressure (CPAP) Episcleritis History of iron deficiency anemia Anxiety and depression Peripheral neuropathy Hypothyroidism GERD (gastroesophageal reflux disease) Morbid obesity with BMI of 45.0-49.9, adult Stenosis of cervical spine with myelopathy Cervical disc disorder with myelopathy of mid-cervical region Intervertebral disc disorder with radiculopathy of lumbosacral region Sleep apnea Dyslipidemia Obesity Nonischemic cardiomyopathy Essential hypertension Hyperuricemia CKD (chronic kidney disease) MGUS (monoclonal gammopathy of unknown significance) Degenerative lumbar spinal stenosis Erosive osteoarthritis Gout, arthritis Surgical History Status post surgical removal of malignant neoplasm of skin Basal cell carcinoma History of lumbar laminectomy (05/13/21) Lumbar laminectomy at L4 and L5 with L4/5 interbody fusion and with L5/S1 interbody fusion History of surgical removal of ganglion cyst right wrist History of knee joint replacement Left 06/2018 right 12/2017 Hx of foot surgery Right x2-sub talur fusoin and arthrodesis Hx of hysterectomy Hx of [place] [facility] [place] and left side 2010 right side done when had hysterectomy at [place] Hx of tonsillectomy Status post reverse arthroplasty of right shoulder History of arthroplasty of left shoulder Family History Son Sarcoidosis Mother Cancer Sister Rheumatoid arthritis Grandmother Diabetes Father Cancer Myocardial infarction Social History (Updated 06/03/25 @ 18:03 by Skinny Mckeon MD) Smoking and tobacco/nicotine status: never used tobacco/nicotine Second hand smoke exposure: No Alcohol intake: current Alcohol intake frequency: holidays/special occasions only Substance/Drug Use: never Additional social history: 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, 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 she wants full code including brief intubation but not prolong life support as discussed with Skinny Mckeon MD on 06/03/2025 and in the presence of her [id number] Talisha Lynn Household members: spouse Marital status: Current occupational status: retired 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 Vitals/I&O/Wt Last Vital Signs Temp 97.4 F L 06/04/25 11:21 Pulse 68 06/04/25 11:21 Resp 18 06/04/25 11:21 BP 105/66 06/04/25 11:21 Pulse Ox 93 06/04/25 11:21 O2 Del Method Room Air 06/04/25 11:21 FiO2 21 06/03/25 21:33 06/03/25 06/04/25 06/04/25 22:59 06:59 14:59 Intake Total 2034 1115 / 3150 1750 / 1750 Output Total 400 / 400 200 / 600 Balance 1635 / 1635 915 / 2550 1750 / 1750 Weight last 48 hrs Weight 125.191 kg Weight 125.277 kg Weight 108.862 kg Physical Exam Narrative: awake , alert , no distress oBESE No JVD peerla S1S2 RRR Lungs clear yolis Abd soft , non tender Ext no edema skin , no rash Urinary Catheter Management: Romeo: Cath Placed During This Visit: yes Reason for Continuing Indwelling Catheter: Other Urinary Catheter Date of Insertion: 06/03/25 Urinary Catheter Time of Insertion: 18:38 Data 06/03/25 13:29 06/04/25 04:50 Micro: Microbiology 06/03/25 13:27 Blood Culture - Preliminary Blood NEGATIVE TO DATE 06/03/25 13:29 Blood Culture - Preliminary Blood NEGATIVE TO DATE A&P Assessment and plan 1. Acute renal failure with oliguria: Plan: 1. Acute on chronic kidney disease stage III: Baseline creatinine seems to be in the mid 1 range-last in February 2025.Patient followed by [facility] as outpatient - Etiology likely hypovolemia initially due to low blood pressures, has since Entresto dose increased per patient. But creatinine has not improved much with IV fluid resuscitation. Check renal ultrasound, check urine electrolytes, will also check serologies. Also patient has history of smoldering myeloma-Will check SPEP UPEP and free light chains -No acute indication for dialysis 2. Hyperkalemia: Mild, improved 3. Metabolic acidosis: In the setting of ANDER, status post bicarbonate drip monitor 4. History of CHF with ejection fraction 30 to 35%, repeat echocardiogram pending 5. Morbid obesity 6. Obstructive sleep apnea Patient evaluated using audiovisual cart. Time spent 40 minutes. PDMP PDMP Reviewed: Not Reviewed Consult Attestations Medical Necessity Statement: per medicine Coding Level of Care Code Acute Code for Chg Fwd Diagnoses Acute renal failure with oliguria N17.9; R34
--- NOTE | 2025-06-04 15:04 | USCV_ITS ---
Maryjo Lynn Age: 79 Gender: F : 1945 Exam Date: 06/04/2025 19:12 Ordering Phys: Skinny Mckeon MD Technologist: DEAN Exam Location: [facility] [place] Indication: acute renal failure, history of CHF, TRACEY, prior [place], obesity. BP: 105 / 59 HR: 68 Rhythm: Sinus Technical Quality: Adequate MEASUREMENTS (Male / Female) Normal Values 2D ECHO LV Diastolic Diameter PLAX 5.3 cm 4.2 - 5.9 / 3.9 - 5.3 cm IVS Diastolic Thickness 1.1 cm 0.6 - 1.0 / 0.6 - 0.9 cm IVS Systolic Thickness 1.0 cm LVPW Diastolic Thickness 1.2 cm 0.6 - 1.0 / 0.6 - 0.9 cm LVPW Systolic Thickness 2.1 cm LVOT Diameter 2.3 cm LV Ejection Fraction 2D Teich 27.4 % LV Ejection Fraction MOD 4C 30.3 % LV Ejection Fraction MOD 2C 47.9 % LV Ejection Fraction 2C AL 48.0 % LA Diameter 4.8 cm LA Sys Volume AL 144.0 cm cubed LA Sys Volume Index AL 59.9 cm cubed/m squared Aorta at Sinotubular Diameter 2.5 cm IVC Diameter 2.3 cm M-MODE LA Ao Ratio MM 2.0 AV Cusp Separation MM 1.3 cm DOPPLER AV Peak Velocity 258.3 cm/s LVOT Peak Velocity 71.0 cm/s AV Area Cont Eq vti 1.4 cm squared AV Area Cont Eq pk 1.2 cm squared MV Peak Velocity 109.0 cm/s MV Area PHT 6.2 cm squared Mitral E to A Ratio 1.3 TV Peak Velocity 263.0 cm/s TR Peak Velocity 274.0 cm/s TR Peak Gradient 30.0 mmHg TV Peak E Velocity 55.0 cm/s PV Peak Velocity 101.0 cm/s FINDINGS Left Ventricle Moderately increased left ventricular cavity size. Severely decreased left ventricular systolic function. Global left ventricular hypokinesis. Left ventricular ejection fraction is estimated at 30 %. Grade II/IV diastolic dysfunction, moderately elevated filling pressures. Right Ventricle Normal right ventricular size and systolic function. Right Atrium Normal right atrial size. Left Atrium Moderately increased left atrial size. IA Septum Normal appearance of the interatrial septum. Mitral Valve Moderately thickened mitral valve. Moderate mitral annular calcification. No mitral valve stenosis. Moderate mitral valve regurgitation. Aortic Valve Severe aortic valve calcification. Moderate aortic valve stenosis, mean gradient 11.6 mmHg, MAGALYS 1.4 cm squared. Trace aortic valve regurgitation. Tricuspid Valve Mild tricuspid valve regurgitation. Pulmonic Valve Mild pulmonary valve regurgitation. Pericardium No pericardial effusion. Aorta Normal diameter of the aortic root and ascending thoracic aorta. IVC Normal IVC diameter. CONCLUSIONS Moderately increased left ventricular cavity size. Severely decreased left ventricular systolic function. Global left ventricular hypokinesis. Left ventricular ejection fraction is estimated at 30 %. Grade II/IV diastolic dysfunction, moderately elevated filling pressures. Moderately increased left atrial size. Moderately thickened mitral valve. Moderate mitral annular calcification. No mitral valve stenosis. Moderate mitral valve regurgitation. Severe aortic valve calcification. Moderate aortic valve stenosis, mean gradient 11.6 mmHg, MAGALYS 1.4 cm squared. Trace aortic valve regurgitation. Mild tricuspid valve regurgitation. Mild pulmonary valve regurgitation. There is no pericardial effusion. Right atrial pressure is around 20 mm of mercury. Brigitte Martinez MD (Electronically Signed) Final Date: 05 June 2025 21:23 S
--- NOTE | 2025-06-04 15:04 | US_ITS ---
WS: [id number] RENAL ULTRASOUND HISTORY: ANDER COMPARISON: None available. TECHNIQUE: 2-D and color Doppler imaging of the kidney submitted. Suboptimal evaluation due to body habitus. Right kidney: 10.9 cm x 5.3 cm x 4.8 cm. Cortex: 1.3 cm Kidneys are normal size. No obstruction. Soft tissue nodule from the mid kidney measures 1.5 x 0.9 x 0.8 cm. Cannot be further characterized. No renal obstruction. Left kidney: 10.8 cm x 5.9 cm x 5.9 cm. Cortex: 1.2 cm Kidney is very difficult to visualize. No hydronephrosis. Mass would be difficult to exclude. Aorta: Not visualized. Urinary Bladder: Nondistended. Romeo catheter is in place. US/US renal BI* [id number] IMPRESSION: 1. Quality of this ultrasound is limited by patient's body habitus. 2. Poorly visualized LEFT kidney. 3. No renal obstruction. 4. Hypoechoic mass from the mid RIGHT kidney measures 1.5 x 0.9 x 0.8 cm. Luis Fernando ot be further characterized as cystic or solid by ultrasound. Consider addition al evaluation by CT or MRI with and without contrast. Renal mass protocol vitaliy burdick be utilized.
[2025-06-04 18:16] LABS: Creatinine Urine, Random 54 mg/dL (28-217)
[2025-06-04 18:21] LABS: Urine Random Chloride 63 mmol/L; Urine Random Sodium 65 mmol/L
[2025-06-05] VITALS (11 sets, daily range): BP systolic 94–110; BP diastolic 52–66; PULSE 71–87; RESP 16–21; TEMP 36.4–36.9; O2SAT 93–97
[2025-06-05] MEDS: carbidopa-levodopa ER 50-200mg Tablet 1 EACH PO ×3 (04:10→21:24)
[2025-06-05 06:27] LABS: Anion Gap 19.0 (5-19); Calcium 9.1 mg/dL (8.5-10.5); Carbon Dioxide 25 mmol/L (22-29); Chloride 100 mmol/L (98-107); Creatinine Clr Calc Pharmacy 15.7035; Glucose 117 mg/dL (65-115); Osmolality Calculated 320 mOsm/kg (285-295); Potassium 4.0 mmol/L (3.5-5.1); Sodium 140 mmol/L (136-145)
[2025-06-05 06:44] LABS: Blood Urea Nitrogen 95 mg/dL (8-23)
[2025-06-05] MEDS: HYDROcodone-acetaminophen 5-325 mg Tablet 1 TAB PO (08:13)
--- NOTE | 2025-06-05 10:20 | PC.SOCIAL ---
IMM Update pg 2 of IMM Updated and reviewed w/ patient. Copy provided and copy dated, initialed and placed in chart.
[2025-06-05] MEDS: FUROsemide 10 mg/mL SDV 10mL 80 MG IVP ×2 (11:03→17:16)
--- NOTE | 2025-06-05 11:39 | CT_ITS ---
WS: [id number] CT ABDOMEN AND PELVIS NONCONTRAST HISTORY: US kidneys with ? - cannot exclude renal mass TECHNIQUE: Imaging performed through the abdomen and pelvis. Coronal and sagittal reformats are submitted. All CT scans at [facility] use at least one of these dose optimization techniques: automated exposure control; mA and/or kV adjustment per patient size (includes targeted exams where dose is matched to clinical indication); or iterative reconstruction. DLP: 1133.33 mGy.cm COMPARISON: Renal ultrasound 06/04/2025, prior CT 04/06/2010 Lower thorax: Mild cardiomegaly. Small bilateral pleural effusions. Moderate-sized hiatal hernia. Patient had a recent barium swallow study and there is high density contrast remaining within the hiatal hernia. There is also very high density contrast throughout the colon causing significant artifact. Liver: Normal size liver. No mass or bile duct dilatation. Gallbladder: Normal gallbladder. No pericholecystic fluid or cholelithiasis. No gallbladder wall thickening. Pancreas: Limited but unremarkable. Spleen: Normal. Adrenal glands: Normal. No mass. Right kidney: Perinephric stranding. Large portions of the RIGHT kidney are not visualized due to streak artifact from recent barium ingestion. The RIGHT kidney cannot be further and adequately evaluated. Cortical 5 mm hypodensity from the posterior upper pole. Left kidney: Perinephric stranding with no obstruction. Aorta: Mild atherosclerosis abdominal aorta with no aneurysm. Small central mesenteric lymph nodes. Large portions of the abdomen are obscured by streak artifact. There is a large amount of soft tissue edema and anasarca within the abdomen and pelvis and the subcutaneous soft tissues. Small amount of ascites. GI tract: GI tract is poorly visualized due to streak artifact. Abdominal wall: No hernia. Pelvis: Small amount of free fluid in the pelvis. Streak artifact. Romeo catheter within the urinary bladder. Osseous structures: Posterior lumbar fusion L4-S1. Interbody spacers at L4-5 and L5-S1. L1 retrolisthesis by [address]/CT abdomen pelvis wo con [id number] IMPRESSION: 1. Small bilateral pleural effusions. 2. Cardiomegaly. 3. Large amount of soft tissue anasarca and a small amount of ascites. 4. This is a nondiagnostic evaluation of the previously described RIGHT renal mass. There is a large amount of streak artifact from barium patient ingested for barium swallow study on 06/04/2025. Streak artifact is obscuring large port ions of the abdomen and pelvis. Also, a noncontrast CT is insufficient to evalu ate the RIGHT renal mass seen on ultrasound. Before additional imaging of the a bdomen and pelvis is performed recommend sufficient interval time in order for the high density contrast to be evacuated. 5. Cardiomegaly. 6. Hiatal hernia. There is still high density oral contrast within the hiatal hernia.
--- NOTE | 2025-06-05 13:43 | P.PN_ITS ---
Subjective 2 Subjective: 79-year-old female with acute kidney justinaolga thomas on chronic kidney disease responded to furosemide yesterday with 1700 cc output. She has bicarb fluid going and acidosis has resolved. I gave additional furosemide 80 mg IV twice daily and metolazone [address] Putnam is helping well with workup and notes the patient had possible myeloma diagnosed in the past but was lost to follow-up with hematology Vitals/I&O/Wt Last Vital Signs Temp 97.5 F L 06/05/25 11:35 Pulse 76 06/05/25 11:35 Resp 17 06/05/25 11:35 BP 96/64 06/05/25 11:35 Pulse Ox 93 06/05/25 11:35 O2 Del Method Room Air 06/05/25 11:35 FiO2 21 06/05/25 00:10 06/04/25 06/05/25 06/05/25 22:59 06:59 14:59 Intake Total 1270 / 3020 1035 / 4055 1705.0 / 1705.0 Output Total 1050 / 1050 650 / 1700 Balance 220 / 1970 385 / 2355 1705.0 / 1705.0 Weight last 48 hrs Weight 123.604 kg Weight 125.191 kg Weight 125.277 kg Physical Exam 2 Narrative: General well-developed well-nourished morbidly obese female in no acute cardiopulmonary stress Eyes minimal conjunctival the irritation left greater than right no scleral icterus CV regular rate and rhythm Lungs bibasilar crackles heard incompletely cleared with deep breaths Abdomen positive bowel tones soft obese nontender Calves 2+ bilateral pretibial edema and DALTON hose are in place Radial pulses 2/4 Mood and affect normal Weight 123.6 kg down from 125.2 Urinary Catheter Management: Romeo: Cath Placed During This Visit: yes Reason for Continuing Indwelling Catheter: Other Urinary Catheter Date of Insertion: 06/03/25 Urinary Catheter Time of Insertion: 18:38 Data 06/03/25 13:29 06/05/25 05:23 Micro: Microbiology 06/03/25 13:27 Blood Culture - Preliminary Blood NEGATIVE TO DATE 06/03/25 13:29 Blood Culture - Preliminary Blood NEGATIVE TO DATE A&P Assessment and plan 1. Acute renal failure with oliguria: Romeo in place decreased bicarbonate fluids to 35 cc an hour. Give furosemide 80 mg twice a day and metolazone 5 mg daily 2. Chronic systolic heart failure: EF 25 to 35% based on recent nuclear images and echo. Continue home CPAP for sleep 3. Morbid obesity with BMI of 45.0-49.9, adult: Start 1600-calorie ADA weight loss diet 4. Sleep apnea treated with continuous positive airway pressure (CPAP): Resume home CPAP patient is going to have someone bring it in 5. Esophageal dysphagia: Esophagram shows esophageal spasm and moderate-sized hiatal hernia and esophagus is displaced will need to further image for possible goiter or mass. Will allow contrast from barium swallow to pass and plan on CT of the chest abdomen pelvis to include the neck on Sunday PDMP PDMP Reviewed: Not Reviewed Attestations 2 Medical Necessity Statement*: Patient forrest in the hospital for diuresis. Bicarbonate complaining fluid will be decreased to 35 cc an hour and anticipate the patient will need to be in the hospital through Sunday Coding Level of Care Code 31883 Diagnoses Acute renal failure with oliguria N17.9; R34 Chronic systolic heart failure I50.22 Heart failure type: systolic Heart failure chronicity: chronic Morbid obesity with BMI of 45.0-49.9, adult E66.01; Z68.42 Sleep apnea treated with continuous positive airway pressure (CPAP) G47.30 Esophageal dysphagia R13.19 Time Spent (min) 35
[2025-06-05] MEDS: lactulose oral liq 20 gm/30 mL UDC 10 GM PO (14:49)
--- NOTE | 2025-06-05 16:14 | P.PN_ITS ---
Subjective 2 Subjective: feels better Medications: Reviewed: Yes Vitals/I&O/Wt Last Vital Signs Temp 97.5 F L 06/05/25 11:35 Pulse 76 06/05/25 11:35 Resp 17 06/05/25 11:35 BP 96/64 06/05/25 11:35 Pulse Ox 93 06/05/25 11:35 O2 Del Method Room Air 06/05/25 11:35 FiO2 21 06/05/25 00:10 06/05/25 06/05/25 06/05/25 06:59 14:59 22:59 Intake Total 1035 / 4055 1705.0 / 1705.0 Output Total 650 / 1700 Balance 385 / 2355 1705.0 / 1705.0 Weight last 48 hrs Weight 123.604 kg Weight 125.191 kg Weight 125.277 kg Physical Exam 2 Narrative: awake , alert , no distress oBESE No JVD peerla S1S2 RRR Lungs clear yolis Abd soft , non tender Ext no edema skin , no rash Urinary Catheter Management: Romeo: Cath Placed During This Visit: yes Reason for Continuing Indwelling Catheter: Other Urinary Catheter Date of Insertion: 06/03/25 Urinary Catheter Time of Insertion: 18:38 Data 06/03/25 13:29 06/05/25 05:23 Micro: Microbiology 06/03/25 13:27 Blood Culture - Preliminary Blood NEGATIVE TO DATE 06/03/25 13:29 Blood Culture - Preliminary Blood NEGATIVE TO DATE A&P Assessment and plan 1. Acute renal failure with oliguria: Plan: 1. Acute on chronic kidney disease stage III: Baseline creatinine seems to be in the mid 1 range-last in February 2025.Patient followed by [facility] as outpatient - Etiology likely hypovolemia initially due to low blood pressures, since Entresto dose increased per patient. But creatinine has not improved much with IV fluid resuscitation. ? cardiorenal - Renal ultrasound: ? right renal mass , ordered CT abd - ordered check serologies. Also patient has history of smoldering myeloma- ordered SPEP UPEP and free light chains -No acute indication for dialysis - Cr improved slightly , s/p IVFs - dc bicarb gtt, and started diuretics - will arrange Nephrology and oncolgy follow up @ [place] 2. Hyperkalemia: Mild, improved 3. Metabolic acidosis: In the setting of ANDER, status post bicarbonate drip monitor 4. History of CHF with ejection fraction 30 to 35%, repeat echocardiogram pending 5. Morbid obesity 6. Obstructive sleep apnea Patient evaluated using audiovisual cart. Time spent 40 minutes. PDMP PDMP Reviewed: Not Reviewed Attestations 2 Medical Necessity Statement*: per sana Coding Level of Care Code Acute Code for Chg Fwd Diagnoses Acute renal failure with oliguria N17.9; R34
[2025-06-06] VITALS (10 sets, daily range): BP systolic 92–107; BP diastolic 56–72; PULSE 79–93; RESP 17–19; TEMP 36.6–36.8; O2SAT 90–94
[2025-06-06] MEDS: carbidopa-levodopa ER 50-200mg Tablet 1 EACH PO ×3 (05:11→21:10)
[2025-06-06] MEDS: FUROsemide 10 mg/mL SDV 10mL 80 MG IVP ×2 (05:13→16:19)
[2025-06-06 05:40] LABS: Anion Gap 18.0 (5-19); Calcium 9.1 mg/dL (8.5-10.5); Carbon Dioxide 27 mmol/L (22-29); Chloride 99 mmol/L (98-107); Creatinine Clr Calc Pharmacy 16.6857; Glucose 93 mg/dL (65-115); Osmolality Calculated 318 mOsm/kg (285-295); Potassium 4.0 mmol/L (3.5-5.1); Sodium 140 mmol/L (136-145)
[2025-06-06 06:02] LABS: Blood Urea Nitrogen 91 mg/dL (8-23)
[2025-06-06] MEDS: HYDROcodone-acetaminophen 5-325 mg Tablet 1 TAB PO (07:25)
[2025-06-06 07:54] LABS: CENTROMERE B ANTIBODY <1.0 NEG AI (<1.0 NEG); JO-1 ANTIBODY <1.0 NEG AI (<1.0 NEG); RNP ANTIBODY <1.0 NEG AI (<1.0 NEG); SCL-70 ANTIBODY <1.0 NEG AI (<1.0 NEG); SS-B <1.0 NEG AI (<1.0 NEG)
[2025-06-06 08:05] LABS: Creatinine, Random Urine 51 mg/dL (20-275); Protein, Total, Random 25 mg/dL (5-24); Protein/Creatinine Ratio 0.490 (0.024-0.184); Protein/Creatinine Ratio 490 mg/g creat (24-184)
[2025-06-06 08:54] LABS: PROTEIN, TOTAL 5.5 g/dL (6.1-8.1)
--- NOTE | 2025-06-06 12:14 | P.PN_ITS ---
Subjective 2 Subjective: feels slightly better but still has exertional SOB Medications: Reviewed: Yes Vitals/I&O/Wt Last Vital Signs Temp 97.8 F 06/06/25 11:34 Pulse 83 06/06/25 11:34 Resp 18 06/06/25 11:34 BP 92/59 06/06/25 11:34 Pulse Ox 90 06/06/25 11:34 O2 Del Method CPAP 06/06/25 04:00 FiO2 21 06/05/25 00:10 06/05/25 06/06/25 06/06/25 22:59 06:59 14:59 Intake Total 957.5 / 2662.5 360 / 360 Output Total 1000 / 1000 650 / 1650 Balance -42.5 / 1662.5 -650 / 1012.5 360 / 360 Weight last 48 hrs Weight 124.602 kg Weight 123.604 kg Physical Exam 2 Narrative: awake , alert , no distress oBESE No JVD peerla S1S2 RRR Lungs clear yolis Abd soft , non tender Ext no edema skin , no rash Urinary Catheter Management: Romeo: Cath Placed During This Visit: yes Reason for Continuing Indwelling Catheter: Other Urinary Catheter Date of Insertion: 06/03/25 Urinary Catheter Time of Insertion: 18:38 Data 06/03/25 13:29 06/06/25 04:38 A&P Assessment and plan 1. Acute renal failure with oliguria: Plan: 1. Acute on chronic kidney disease stage III: Baseline creatinine seems to be in the mid 1 range-last in February 2025.Patient followed by [facility] as outpatient - Etiology likely hypovolemia initially due to low blood pressures, since Entresto dose increased per patient. But creatinine has not improved much with IV fluid resuscitation. ? cardiorenal , agree with diuretics now , Cr slighly better - Renal ultrasound: ? right renal mass , CT abd - non diagnostic , can repeat CT prior to DC - ordered serologies. Also patient has history of smoldering myeloma-ordered SPEP UPEP and free light chains -No acute indication for dialysis - will arrange Nephrology and oncolgy follow up @ [place] 2. Hyperkalemia: Mild, improved 3. Metabolic acidosis: In the setting of ANDER, status post bicarbonate drip monitor 4. History of CHF with ejection fraction 30 %, 5. Morbid obesity 6. Obstructive sleep apnea Patient evaluated using audiovisual cart. Time spent 40 minutes. PDMP PDMP Reviewed: Not Reviewed Attestations 2 Medical Necessity Statement*: per [facility] Coding Level of Care Code Acute Code for Chg Fwd Diagnoses Acute renal failure with oliguria N17.9; R34
--- NOTE | 2025-06-06 14:58 | P.PN_ITS ---
Subjective 2 Subjective: 79-year-old female with acute kidney justinaolga thomas on chronic kidney disease on 80 of furosemide IV twice daily plus metolazone. She is putting out about 1600 cc a day but feeling very thirsty and took in excess fluid 4 L on June 05 and 2600 cc so far the last 24 Vitals/I&O/Wt Last Vital Signs Temp 97.8 F 06/06/25 11:34 Pulse 83 06/06/25 11:34 Resp 18 06/06/25 11:34 BP 92/59 06/06/25 11:34 Pulse Ox 90 06/06/25 11:34 O2 Del Method CPAP 06/06/25 04:00 FiO2 21 06/05/25 00:10 06/05/25 06/06/25 06/06/25 22:59 06:59 14:59 Intake Total 957.5 / 2662.5 360 / 360 Output Total 1000 / 1000 650 / 1650 300 / 300 Balance -42.5 / 1662.5 -650 / 1012.5 60 / 60 Weight last 48 hrs Weight 124.602 kg Weight 123.604 kg Physical Exam 2 Narrative: General well-developed well-nourished morbidly obese female in no acute cardiopulmonary stress Neck prominent submandibular soft tissue but not obvious mass or goiter CV regular rate and rhythm Lungs bibasilar crackles heard incompletely cleared with deep breaths improved from yesterday Abdomen positive bowel tones soft obese nontender Calves 2+ bilateral pretibial edema and DALTON hose are in place Mood and affect normal Weight 124.6 kg up from 123.6 yesterday Urinary Catheter Management: Romeo: Cath Placed During This Visit: yes Reason for Continuing Indwelling Catheter: Other Urinary Catheter Date of Insertion: 06/03/25 Urinary Catheter Time of Insertion: 18:38 Data 06/03/25 13:29 06/06/25 04:38 A&P Assessment and plan 1. Acute renal failure with oliguria: Romeo in place and continue diuretics. Discontinue bicarbonate fluid. 2. Acute on chronic combined systolic and diastolic congestive heart failure: EF 25 to 35% based on prior nuclear images and echo. Continue home CPAP for sleep Repeat echocardiogram showed EF 30% and grade 2/4 diastolic dysfunction no pericardial effusion. Severe aortic valve calcification noted with moderate aortic valve stenosis and moderate mitral valve regurg 3. Morbid obesity with BMI of 45.0-49.9, adult: Start 1600-calorie ADA weight loss diet 4. Sleep apnea treated with continuous positive airway pressure (CPAP): Resume home APAP on her ResMed 11 machine 5. Esophageal dysphagia: Esophagram shows esophageal spasm and moderate-sized hiatal hernia and esophagus is displaced will need to further image for possible goiter or mass. Will allow contrast from barium swallow to pass and plan on CT of the chest abdomen pelvis to include the neck on Sunday PDMP PDMP Reviewed: Not Reviewed Attestations 2 Medical Necessity Statement*: Patient forrest in the hospital for diuresis and management of acute renal failure. CT scan of the chest abdomen pelvis tomorrow no contrast due to right renal mass and thoracic mass displacing the esophagus Coding Level of Care Code 38719 Diagnoses Acute renal failure with oliguria N17.9; R34 Acute on chronic combined systolic and diastolic congestive heart failure I50.43 Morbid obesity with BMI of 45.0-49.9, adult E66.01; Z68.42 Sleep apnea treated with continuous positive airway pressure (CPAP) G47.30 Esophageal dysphagia R13.19 Time Spent (min) 35
[2025-06-06] MEDS: fluticasone nasal spray 16gm Btl 2 SPRAY INTRANASAL (21:10)
[2025-06-07] VITALS (14 sets, daily range): BP systolic 91–116; BP diastolic 51–66; PULSE 64–93; RESP 16–20; TEMP 36.4–37; O2SAT 90–97
[2025-06-07 05:32] LABS: Anion Gap 17.1 (5-19); Calcium 9.3 mg/dL (8.5-10.5); Carbon Dioxide 28 mmol/L (22-29); Chloride 99 mmol/L (98-107); Creatinine Clr Calc Pharmacy 16.6857; Glucose 87 mg/dL (65-115); Osmolality Calculated 316 mOsm/kg (285-295); Potassium 4.1 mmol/L (3.5-5.1); Sodium 140 mmol/L (136-145)
[2025-06-07 05:50] LABS: Blood Urea Nitrogen 88 mg/dL (8-23)
[2025-06-07] MEDS: carbidopa-levodopa ER 50-200mg Tablet 1 EACH PO ×3 (05:52→21:24)
[2025-06-07] MEDS: FUROsemide 10 mg/mL SDV 10mL 80 MG IVP ×2 (05:52→16:57)
[2025-06-07] MEDS: lactulose oral liq 20 gm/30 mL UDC 10 GM PO (05:53)
--- NOTE | 2025-06-07 10:03 | P.PN_ITS ---
Subjective 2 Subjective: still feels weak , SOB with exrtion Medications: Reviewed: Yes Vitals/I&O/Wt Last Vital Signs Temp 98.1 F 06/07/25 08:05 Pulse 84 06/07/25 08:05 Resp 18 06/07/25 08:05 BP 108/66 06/07/25 08:05 Pulse Ox 90 06/07/25 08:05 O2 Del Method Room Air 06/07/25 07:38 FiO2 21 06/05/25 00:10 06/06/25 06/07/25 06/07/25 22:59 05:59 14:59 Intake Total 240 / 600 480 / 480 Output Total 1200 / 1500 550 / 2050 500 / 500 Balance -960 / -900 -550 / -1450 -20 / -20 Weight last 48 hrs Weight 122.107 kg Weight 124.602 kg Physical Exam 2 Narrative: awake , alert , no distress oBESE No JVD peerla S1S2 RRR Lungs clear yolis Abd soft , non tender Ext no edema skin , no rash Urinary Catheter Management: Romeo: Cath Placed During This Visit: yes Reason for Continuing Indwelling Catheter: Accurate Measurement of Urinary Output in Critically Ill Patients Urinary Catheter Date of Insertion: 06/03/25 Urinary Catheter Time of Insertion: 18:38 Data 06/03/25 13:29 06/07/25 04:25 A&P Assessment and plan 1. Acute renal failure with oliguria: Plan: 1. Acute on chronic kidney disease stage III: Baseline creatinine seems to be in the mid 1 range-last in February 2025.Patient followed by [facility] as outpatient - Etiology likely hypovolemia initially due to low blood pressures, since Entresto dose increased per patient. But creatinine has not improved much with IV fluid resuscitation. ? cardiorenal , agree with diuretics now , Cr slighly better , but still feels weak , SOB with exertion and has pooor appetite --> if no improvement in 1-2 days ,will request tunnelled catheter placement and inititate HD - Renal ultrasound: ? right renal mass , CT abd - non diagnostic , can repeat CT prior to DC - ordered serologies. Also patient has history of smoldering myeloma-ordered SPEP UPEP and free light chains -No acute indication for dialysis - will arrange Nephrology and oncolgy follow up @ [place] 2. Hyperkalemia: Mild, improved 3. Metabolic acidosis: In the setting of ANDER, status post bicarbonate drip monitor 4. History of CHF with ejection fraction 30 %, 5. Morbid obesity 6. Obstructive sleep apnea Patient evaluated using audiovisual cart. Time spent 40 minutes. PDMP PDMP Reviewed: Not Reviewed Attestations 2 Medical Necessity Statement*: per [facility] Coding Level of Care Code Acute Code for Chg Fwd Diagnoses Acute renal failure with oliguria N17.9; R34
[2025-06-07] MEDS: lactulose oral liq 20 gm/30 mL UDC PO ×2 (12:57→18:41)
--- NOTE | 2025-06-07 13:30 | P.PN_ITS ---
Subjective 2 Subjective: 79-year-old female with acute kidney justina lure on chronic kidney disease on 80 of furosemide IV twice daily plus metolazone. Urine output increased to 2050 cc yesterday and already 500 today patient continues to be dyspneic on exertion. She has not had a bowel movement Vitals/I&O/Wt Last Vital Signs Temp 97.7 F 06/07/25 11:54 Pulse 90 06/07/25 11:54 Resp 18 06/07/25 11:54 BP 103/65 06/07/25 11:54 Pulse Ox 91 06/07/25 11:54 O2 Del Method Room Air 06/07/25 11:20 FiO2 21 06/07/25 11:20 06/06/25 06/07/25 06/07/25 22:59 05:59 14:59 Intake Total 240 / 600 720 / 720 Output Total 1200 / 1500 550 / 2050 500 / 500 Balance -960 / -900 -550 / -1450 220 / 220 Weight last 48 hrs Weight 122.107 kg Weight 124.602 kg Physical Exam 2 Narrative: General well-developed well-nourished morbidly obese female in no acute cardiopulmonary stress CV regular rate and rhythm Lungs bibasilar crackles heard incompletely cleared with deep breaths improved from yesterday Abdomen positive bowel tones soft obese nontender Calves 2+ bilateral pretibial edema and DALTON hose are in place Mood and affect normal Weight down 122.1 kg Urinary Catheter Management: Romeo: Cath Placed During This Visit: yes Reason for Continuing Indwelling Catheter: Accurate Measurement of Urinary Output in Critically Ill Patients Urinary Catheter Date of Insertion: 06/03/25 Urinary Catheter Time of Insertion: 18:38 Data 06/03/25 13:29 06/07/25 04:25 A&P Assessment and plan 1. Acute renal failure with oliguria: Romeo in place and continue diuretics. Serum bicarb 28 off bicarbonate replacement fluid patient is hard to diurese in part due to hypotension. Midodrine started yesterday but blood pressure still systolic 103. Will increase midodrine to 10 mg 3 times daily 2. Acute on chronic combined systolic and diastolic congestive heart failure: EF 25 to 35% based on prior nuclear images and echo. Continue home CPAP for sleep Repeat echocardiogram showed EF 30% and grade 2/4 diastolic dysfunction no pericardial effusion. Severe aortic valve calcification noted with moderate aortic valve stenosis and moderate mitral valve regurg 3. Morbid obesity with BMI of 45.0-49.9, adult: Continue 1600-calorie ADA weight loss diet 4. Sleep apnea treated with continuous positive airway pressure (CPAP): Resume home APAP on her ResMed 11 machine 5. Esophageal dysphagia: Esophagram shows esophageal spasm and moderate-sized hiatal hernia and esophagus is displaced will need to further image for possible goiter or mass. Will allow contrast from barium swallow to pass and plan on CT of the chest abdomen pelvis to include the neck on Sunday Patient also has a right kidney mass to be evaluated. She needs to pass her stool regarding barium swallow before proceeding with repeat imaging 6. Hypothyroidism: TSH was 9 so I raise the levothyroxine. Notably patient had possible goiter on chest x-ray based on displacement of esophagus on barium swallow. CT scan ordered for the morning. We are awaiting passage of barium because that had compromised images of the kidney on last CT scan PDMP PDMP Reviewed: Not Reviewed Attestations 2 Medical Necessity Statement*: Patient forrest in the hospital for diuresis and may require dialysis per Dr. Putnam and will require additional 1-2 midnights Coding Level of Care Code 16680 Diagnoses Acute renal failure with oliguria N17.9; R34 Acute on chronic combined systolic and diastolic congestive heart failure I50.43 Morbid obesity with BMI of 45.0-49.9, adult E66.01; Z68.42 Sleep apnea treated with continuous positive airway pressure (CPAP) G47.30 Esophageal dysphagia R13.19 Hypothyroidism E03.9 Time Spent (min) 33
[2025-06-07] MEDS: fluticasone nasal spray 16gm Btl 2 SPRAY INTRANASAL (21:25)
[2025-06-08] VITALS (11 sets, daily range): BP systolic 90–114; BP diastolic 60–68; PULSE 68–101; RESP 16–21; TEMP 36.4–37.1; O2SAT 91–98; BMI 50.8
[2025-06-08] MEDS: FUROsemide 10 mg/mL SDV 10mL 80 MG IVP ×2 (05:11→17:54)
[2025-06-08] MEDS: carbidopa-levodopa ER 50-200mg Tablet 1 EACH PO ×3 (05:12→22:19)
[2025-06-08 05:38] LABS: Calcium 9.6 mg/dL (8.5-10.5); Carbon Dioxide 26 mmol/L (22-29); Chloride 99 mmol/L (98-107); Creatinine Clr Calc Pharmacy 20.5968; Glucose 100 mg/dL (65-115); Osmolality Calculated 320 mOsm/kg (285-295); Sodium 142 mmol/L (136-145)
[2025-06-08 05:48] LABS: Anion Gap 20.8 (5-19); Potassium 3.8 mmol/L (3.5-5.1)
[2025-06-08 05:49] LABS: Blood Urea Nitrogen 84 mg/dL (8-23)
--- NOTE | 2025-06-08 08:57 | PC.SOCIAL ---
IMM Update Pg. 2 of IMM updated and reviewed with patient, who verbalized understanding. Copy provided at bedside.
--- NOTE | 2025-06-08 10:00 | CT_ITS ---
WS: [id number] CT CHEST, ABDOMEN, AND PELVIS TECHNIQUE: Noncontrast CT of the chest, abdomen, and pelvis with coronal and sagittal reformatted images. CLINICAL INFORMATION: mediastinal mass and right kidney mass COMPARISON: CT 06/05/2025 DLP: 1204.[address] scans at [facility] use at least one of these dose optimization techniques: automated exposure control; mA and/or kV adjustment per patient size (includes targeted exams where dose is matched to clinical indication); or iterative reconstruction. CT CHEST: Significant beam hardening artifact from bilateral THAs significantly degrades some images. Cardiomegaly. Large esophageal hiatal hernia. Aortic calcification. Coronary calcification. No mediastinal or hilar lymphadenopathy. Tiny bilateral pleural effusions. A few scattered subcentimeter pulmonary nodules. No focal pneumonia. Thoracic curve. Moderate spondylitic changes thoracic spine with hypertrophic changes. No visualized mediastinal mass considering limitations. CT ABDOMEN AND PELVIS: Persistent barium in the colon and results in substantial streak and beam hardening artifact in the abdomen and pelvis which limits examination. Normal noncontrast liver and spleen. Moderate to large esophageal hiatal hernia. Fatty atrophy of the pancreas. Adrenal glands are normal. Diffuse body wall anasarca. No hydronephrosis in either kidney. Small increased attenuation RIGHT renal lesion likely hemorrhagic or proteinaceous cyst measuring 6 mm. Romeo catheter. Sigmoid diverticulosis. Persistent barium scattered throughout the colon. Prior pedicle screw fixation lower lumbar spine. CT/[place] [id number] IMPRESSION: Images of the abdomen and pelvis remain limited due to significant beam hardening artifact from barium in the colon 1. Tiny bilateral pleural effusions. 2. No visualized mediastinal mass. 3. Cardiomegaly. 4. Large esophageal hiatal hernia. 5. No visualized renal mass considering limitations on this noncontrast study that would correspond to the ultrasound findings. Current exam is limited and r ecommend interval follow-up after barium clears with contrast-enhanced CT abdom en pelvis. Follow-up exam to evaluate renal lesion needs to be performed with I V contrast in order to evaluate the previously described renal lesion seen on u ltrasound
[2025-06-08 10:31] LABS: THYROID PEROXIDASE ANTIBODIES 35 IU/mL (<9)
--- NOTE | 2025-06-08 11:02 | PC.NURSE ---
Patient given oral Contrast to drink at this time.
--- NOTE | 2025-06-08 11:16 | P.PN_ITS ---
Subjective 2 Subjective: c/o poor appetite Medications: Reviewed: Yes Vitals/I&O/Wt Last Vital Signs Temp 98.4 F 06/08/25 11:10 Pulse 96 06/08/25 11:10 Resp 21 H 06/08/25 11:10 BP 103/63 06/08/25 11:10 Pulse Ox 91 06/08/25 11:10 O2 Del Method Room Air 06/08/25 11:10 FiO2 21 06/07/25 20:50 06/07/25 06/08/25 06/08/25 22:59 06:59 14:59 Intake Total 240 / 960 60 / 60 Output Total 1150 / 1650 Balance 240 / 460 -1150 / -690 60 / 60 Weight last 48 hrs Weight 122.152 kg Weight 122.107 kg Physical Exam 2 Narrative: awake , alert , no distress oBESE No JVD peerla S1S2 RRR Lungs clear yolis Abd soft , non tender Ext no edema skin , no rash Urinary Catheter Management: Romeo: Cath Placed During This Visit: yes Reason for Continuing Indwelling Catheter: Other Urinary Catheter Date of Insertion: 06/03/25 Urinary Catheter Time of Insertion: 18:38 Data 06/03/25 13:29 06/08/25 04:49 A&P Assessment and plan 1. Acute renal failure with oliguria: Plan: 1. Acute on chronic kidney disease stage III: Baseline creatinine seems to be in the mid 1 range-last in February 2025.Patient followed by [facility] as outpatient - Etiology likely hypovolemia initially due to low blood pressures, since Entresto dose increased per patient. But creatinine has not improved much with IV fluid resuscitation. ? cardiorenal , agree with diuretics now , Cr slighly better , but still feels weak , SOB with exertion and has pooor appetite --> if no improvement ,will request tunnelled catheter placement and inititate HD - Renal ultrasound: ? right renal mass , CT abd - non diagnostic , can repeat CT prior to DC - ordered serologies. Also patient has history of smoldering myeloma-ordered SPEP UPEP and free light chains -No acute indication for dialysis - will arrange Nephrology and oncolgy follow up @ [place] 2. Hyperkalemia: Mild, improved 3. Metabolic acidosis: In the setting of ANDER, status post bicarbonate drip monitor 4. History of CHF with ejection fraction 30 %, 5. Morbid obesity 6. Obstructive sleep apnea Patient evaluated using audiovisual cart. Time spent 40 minutes. PDMP PDMP Reviewed: Not Reviewed Attestations 2 Medical Necessity Statement*: per [facility]ana Coding Level of Care Code Acute Code for Chg Fwd Diagnoses Acute renal failure with oliguria N17.9; R34
[2025-06-08 11:45] LABS: Iron 46 ug/dL (37-145); Total Iron Binding Capacity 307 mcg/dl; Unsaturated Iron Binding 261 ug/dL (112-347)
[2025-06-08 11:47] LABS: Estmated Average Glucose 94; Hemoglobin A1C 4.9 % (4.0-6.0)
[2025-06-08 12:22] LABS: Free T4 Free Thyroxine 1.50 ng/dL (0.82-1.77)
[2025-06-08] MEDS: iohexol 350 mg/mL 500 mL Btl (per mL) PO (12:37)
[2025-06-08 12:39] LABS: COMPLEMENT COMPONENT C3C 104 mg/dL (83-193); COMPLEMENT COMPONENT C4C 35 mg/dL (15-57)
[2025-06-08 12:42] LABS: Vitamin B12 1397 pg/mL (232-1245)
[2025-06-08 13:20] LABS: KAPPA LIGHT CHAIN, FREE, SERUM 28.7 mg/L (3.3-19.4); KAPPA/LAMBDA LIGHT CHAINS FREE 0.02 (0.26-1.65); LAMBDA LIGHT CHAIN, FREE, SERU 1386.1 mg/L (5.7-26.3)
--- NOTE | 2025-06-08 13:55 | P.PN_ITS ---
Subjective 2 Subjective: Hospital course, labs appreciated. Patient seen with family at bedside. Sitting up in chair. States she is feeling better but continues to feel weak and tired. States shortness of breath is improving. Appreciate urine output. Denies any chest pain. Vitals/I&O/Wt Last Vital Signs Temp 98.4 F 06/08/25 11:10 Pulse 96 06/08/25 12:51 Resp 20 H 06/08/25 12:51 BP 103/63 06/08/25 11:10 Pulse Ox 93 06/08/25 12:51 O2 Del Method Room Air 06/08/25 12:51 FiO2 21 06/07/25 20:50 06/07/25 06/08/25 06/08/25 22:59 06:59 14:59 Intake Total 240 / 960 300 / 300 Output Total 1150 / 1650 950 / 950 Balance 240 / 460 -1150 / -690 -650 / -650 Weight last 48 hrs Weight 122.152 kg Weight 122.107 kg Physical Exam 2 Narrative: General well-developed well-nourished morbidly obese female in no acute cardiopulmonary stress CV regular rate and rhythm Lungs bibasilar crackles heard incompletely cleared with deep breaths improved from yesterday Abdomen positive bowel tones soft obese nontender Calves 2+ bilateral pretibial edema and DALTON hose are in place Mood and affect normal Weight down 122.1 kg Urinary Catheter Management: Romeo: Cath Placed During This Visit: yes Reason for Continuing Indwelling Catheter: Other Urinary Catheter Date of Insertion: 06/03/25 Urinary Catheter Time of Insertion: 18:38 Data 06/03/25 13:29 06/08/25 04:49 Micro: Microbiology 06/03/25 13:27 Blood Culture - Final Blood NO GROWTH AFTER 5 DAYS 06/03/25 13:29 Blood Culture - Final Blood NO GROWTH AFTER 5 DAYS A&P Assessment and plan 1. Acute renal failure with oliguria: Romeo in place and continue diuretics. Serum bicarb 28 off bicarbonate replacement fluid patient is hard to diurese in part due to hypotension. Midodrine started yesterday but blood pressure still systolic 103. Will increase midodrine to 10 mg 3 times daily 2. Uremia: 3. Nonischemic cardiomyopathy: 4. Acute on chronic combined systolic and diastolic congestive heart failure: EF 25 to 35% based on prior nuclear images and echo. Continue home CPAP for sleep Repeat echocardiogram showed EF 30% and grade 2/4 diastolic dysfunction no pericardial effusion. Severe aortic valve calcification noted with moderate aortic valve stenosis and moderate mitral valve regurg 5. Mild aortic stenosis: 6. Sleep apnea treated with continuous positive airway pressure (CPAP): Resume home APAP on her ResMed 11 machine 7. Esophageal dysphagia: Esophagram shows esophageal spasm and moderate-sized hiatal hernia and esophagus is displaced will need to further image for possible goiter or mass. Will allow contrast from barium swallow to pass and plan on CT of the chest abdomen pelvis to include the neck on Sunday Patient also has a right kidney mass to be evaluated. She needs to pass her stool regarding barium swallow before proceeding with repeat imaging 8. Hypothyroidism: TSH was 9 so I raise the levothyroxine. Notably patient had possible goiter on chest x-ray based on displacement of esophagus on barium swallow. CT scan ordered for the morning. We are awaiting passage of barium because that had compromised images of the kidney on last CT scan 9. Acute on chronic renal insufficiency: 10. MGUS (monoclonal gammopathy of unknown significance): Plan: Plan for the day: Acute renal failure on CKD most likely in setting of CRS and home Entresto. Renal functions continue to improve but very gradually. Patient on high-dose of diuretics with Lasix 80 mg IV twice daily along with metolazone 5 mg daily. Echocardiogram shows EF of 30% with grade 2 diastolic dysfunction along with global LV hypokinesia and moderate aortic valve stenosis. Care discussed in detail with nephrology. Given low EF, very gradually improving renal function with uremia, persistent symptoms of uremia, requirement of hide diuresis patient most likely would improve with dialysis. Had a detailed discussion with patient with family at bedside. Patient is agreeable for dialysis for now. Will consult surgery for tunneled catheter placement. Continue other chronic home medications. Appreciate TSH. Check free T3 and T4. Check random cortisol and B12 levels. N.p.o. after midnight. Switch to renal dialysis diet. PDMP PDMP Reviewed: Not Reviewed Attestations 2 Medical Necessity Statement*: Requires further hospitalization for management of ANDER on CKD while patient requires initiation of dialysis in setting of congestive systolic and diastolic heart failure Diagnoses Acute renal failure with oliguria N17.9; R34 Uremia N19 Nonischemic cardiomyopathy I42.8 Acute on chronic combined systolic and diastolic congestive heart failure I50.43 Mild aortic stenosis I35.0 Sleep apnea treated with continuous positive airway pressure (CPAP) G47.30 Esophageal dysphagia R13.19 Hypothyroidism E03.9 Acute on chronic renal insufficiency N28.9; N18.9 MGUS (monoclonal gammopathy of unknown significance) D47.2
[2025-06-08 14:35] LABS: COMPLEMENT, TOTAL (CH50) 53 U/mL (31-60)
--- NOTE | 2025-06-08 14:52 | PM.MISC ---
Miscellaneous Note Note: Plan for [facility]DC 06/09/25 PM. Full consult note to follow.
--- NOTE | 2025-06-08 14:52 | PM.CONSULT ---
Providers/Reason For Consult Consulting Physician/Specialty*: Dr. Santizo general surgery Reason for Consult*: Tunneled dialysis catheter insertion Attending Physician: Can Concepcion MD Primary Care Provider: Haider Cancino MD History of Present Illness History of Present Illness Maryjo Lynn is a 79 year old female in renal failure. Surgery consulted for tunneled dialysis catheter insertion. Nephrology will start elective dialysis. Medications/Allergies Home Medications ?Medication ?Instructions ?Recorded ?Confirmed ?Last Taken ?Type carbidopa ER 50 mg-levodopa 200 mg 1 tab PO TID 09/09/19 06/03/25 06/03/25 History tablet,extended release montelukast 10 mg tablet 10 mg PO BEDTIME 09/09/19 06/03/25 06/02/25 History (Singulair) gabapentin 300 mg capsule 300 mg PO BEDTIME 11/29/20 06/03/25 06/02/25 History cetirizine 10 mg tablet (Zyrtec) 10 mg PO DAILY PRN Allergy Symptoms 05/11/21 06/03/25 10/22/24 History sennosides 8.6 mg-docusate sodium 1 tab PO DAILY PRN Constipation 12/05/21 06/03/25 10/21/24 History 50 mg tablet (Senna Plus) chlorpheniramine maleate 4 mg 4 mg PO BEDTIME PRN Itching 06/12/22 06/03/25 10/21/24 History tablet (Aller-Chlor) multivitamin 1 tab PO DAILY 06/12/22 06/03/25 06/03/25 History fluticasone propionate 50 2 spray intranasal .hs 07/12/22 06/03/25 06/02/25 History mcg/actuation nasal spray,suspension (Flonase Allergy Relief) pantoprazole 40 mg tablet,delayed 40 mg PO BID #90 tabs 07/12/22 06/03/25 06/03/25 Rx release gycrzowfyts-wti-taprtdmvw-vitC 1 cap PO BID 01/17/23 06/03/25 06/03/25 History capsule (Glucosamine Complex-MSM capsule) turmeric root extract 500 mg 3,000 mg PO DAILY 11/22/23 06/03/25 06/03/25 History capsule diclofenac sodium 1 % topical gel See Rx Instructions .Route 05/22/24 06/03/25 Unknown Rx .COMPLEX #300 grams cyclobenzaprine 10 mg tablet 10 mg PO BEDTIME 05/23/24 06/03/25 06/02/25 History fluticasone 500 mcg-salmeterol 50 1 inh inhalation BID 05/23/24 06/03/25 06/03/25 History mcg/dose blistr powdr for inhalation (Advair Diskus) zolpidem 5 mg tablet (Ambien) 2.5 mg PO BEDTIME PRN Insomnia 05/23/24 06/03/25 10/21/24 History atorvastatin 40 mg tablet 40 mg PO DAILY #90 tabs 12/30/24 06/03/25 06/02/25 Rx bisoprolol fumarate 5 mg tablet 2.5 mg (1/2 x 5 mg) PO DAILY #45 12/30/24 06/03/25 06/03/25 Rx tabs torsemide 20 mg tablet 10 mg PO DAILY 02/03/25 06/03/25 Unknown History hydrocodone 5 mg-acetaminophen 325 1 tab PO Q6H PRN Pain 03/03/25 06/03/25 Unknown History mg tablet allopurinol 100 mg tablet 200 mg (2 x 100 mg) PO DAILY #180 03/16/25 06/03/25 06/03/25 Rx tabs albuterol sulfate 90 mcg/actuation 2 puff inhalation QID PRN Wheezing 06/03/25 06/03/25 Unknown History aerosol inhaler clindamycin phosphate 1 % lotion 1 applic topical DAILY PRN skin 06/03/25 06/03/25 Unknown History rash estradiol 0.01% (0.1 mg/gram) 1 g vaginal DAILY 06/03/25 06/03/25 Unknown History vaginal cream hydroxychloroquine 200 mg tablet See Rx Instructions .Route .COMPLEX 06/03/25 06/03/25 06/03/25 History (Plaquenil) levothyroxine 150 mcg tablet 150 mcg PO DAILY 06/03/25 06/03/25 06/03/25 History (Synthroid) lidocaine 5 % topical patch 1 patch topical DAILY PRN Pain 06/03/25 06/03/25 Unknown History mometasone 0.1 % topical solution 1 applic topical DAILY PRN skin 06/03/25 06/03/25 Unknown History rash sacubitril 24 mg-valsartan 26 mg See Rx Instructions .Route .COMPLEX 06/03/25 06/03/25 06/03/25 History tablet (Entresto) triamcinolone acetonide 0.1 % 1 applic topical DAILY PRN skin 06/03/25 06/03/25 Unknown History topical cream rash Allergies Allergy/AdvReac Type Severity Reaction Status Date / Time adhesive tape Allergy Intermediate rash, Verified 03/03/25 10:26 itch, DERMABOND 2-octyl cyanoacrylate Allergy ALGY-Bliste Verified 03/03/25 10:26 r DANNY Inhibitors Allergy ADR-Cough Verified 03/03/25 10:26 povidone-iodine (From Allergy ALGY-Bliste Verified 03/03/25 10:26 Betadine) r propranolol (From Inderal LA) Allergy ADR-Depress Verified 03/03/25 10:26 ion soap (From Betadine) Allergy ALGY-Bliste Verified 03/03/25 10:26 r verapamil Allergy ADR-Headach Verified 03/03/25 10:26 e Current Medications Generic Name Dose Route Start Last Admin Trade Name Freq PRN Reason Stop Dose Admin Hydrocodone Bitart/Acetaminophen 1 tab 06/03/25 20:53 06/06/25 07:25 Hydrocodone-Acetaminophen 5-325 Mg Tablet PO 1 tab Q6H PRN Administration PAIN Albuterol Sulfate 2.5 mg 06/06/25 20:00 06/08/25 12:50 Albuterol 2.5 Mg/3 Ml Neb INHALATION 2.5 mg QID.RESPIRATORY MAL Administration Atorvastatin Calcium 40 mg 06/07/25 05:00 06/08/25 05:12 Atorvastatin 40 Mg Tablet PO 40 mg DAILY MAL Administration Budesonide 0.5 mg 06/06/25 20:00 06/08/25 08:11 Budesonide 0.5 Mg/2 Ml Neb INHALATION 0.5 mg BID.RESPIRATORY MAL Administration Carbidopa/Levodopa 1 each 06/03/25 21:00 06/08/25 13:05 Carbidopa-Levodopa Er 50-200mg Tablet PO 1 each TID MAL Administration Cetirizine HCl 10 mg 06/05/25 13:40 06/08/25 05:12 Cetirizine 10 Mg Tablet PO 10 mg DAILY MAL Administration Cyclobenzaprine HCl 10 mg 06/03/25 21:00 06/07/25 21:25 Cyclobenzaprine 10 Mg Tablet PO 10 mg On Hold: 06/08/25 11:31 BEDTIME MAL Administration Fluconazole 100 mg 06/07/25 21:00 06/08/25 05:12 Fluconazole 100 Mg Tablet PO 06/12/25 20:59 100 mg DAILY MAL Administration Fluticasone Propionate 2 spray 06/06/25 21:00 06/07/25 21:25 Fluticasone Nasal [place] 16gm Btl INTRANASAL 2 spray BEDTIME MAL Administration Furosemide 80 mg 06/05/25 10:00 06/08/25 05:11 Furosemide 10 Mg/Ml Sdv 10ml IVP 80 mg BID MAL Administration Gabapentin 300 mg 06/03/25 21:00 06/07/25 21:25 Gabapentin 300 Mg Capsule PO 300 mg BEDTIME MAL Administration Lactulose 20 gm 06/07/25 10:30 06/08/25 13:07 Lactulose Oral Liq 20 Gm/30 Ml Udc PO Not Given Q6H MAL Levothyroxine Sodium 200 mcg 06/07/25 05:00 06/08/25 05:12 Levothyroxine 200 Mcg Tablet PO 200 mcg DAILY MAL Administration Metolazone 5 mg 06/05/25 10:00 06/08/25 05:12 Metolazone 5 Mg Tablet PO 5 mg DAILY MAL Administration Midodrine 10 mg 06/07/25 21:00 06/08/25 13:06 Midodrine 5 Mg Tablet PO 10 mg TID MAL Administration Montelukast Sodium 10 mg 06/03/25 21:00 06/07/25 21:25 Montelukast Sodium 10 Mg Tablet PO 10 mg BEDTIME MAL Administration Pantoprazole Sodium 40 mg 06/04/25 05:00 06/08/25 05:[address] 40 Mg Tablet PO 40 mg DAILY MAL Administration Zolpidem Tartrate 2.5 mg 06/03/25 20:53 06/07/25 21:25 Zolpidem 5 Mg Tablet PO 2.5 mg BEDTIME PRN Administration INSOMNIA PFSH Acute PFSH: Medical History (Updated 06/08/25 @ 13:58 by Can Concepcion MD) Sleep apnea treated with continuous positive airway pressure (CPAP) Episcleritis History of iron deficiency anemia Anxiety and depression Peripheral neuropathy Hypothyroidism GERD (gastroesophageal reflux disease) Morbid obesity with BMI of 45.0-49.9, adult Stenosis of cervical spine with myelopathy Cervical disc disorder with myelopathy of mid-cervical region Intervertebral disc disorder with radiculopathy of lumbosacral region Sleep apnea Dyslipidemia Obesity Nonischemic cardiomyopathy Essential hypertension Hyperuricemia CKD (chronic kidney disease) MGUS (monoclonal gammopathy of unknown significance) Degenerative lumbar spinal stenosis Erosive osteoarthritis Gout, arthritis Surgical History Status post surgical removal of malignant neoplasm of skin Basal cell carcinoma History of lumbar laminectomy (05/13/21) Lumbar laminectomy at L4 and L5 with L4/5 interbody fusion and with L5/S1 interbody fusion History of surgical removal of ganglion cyst right wrist History of knee joint replacement Left 06/2018 right 12/2017 Hx of foot surgery Right x2-sub talur fusoin and arthrodesis Hx of hysterectomy Hx of bilateral oophorectomy with Dr. Watts at [facility] in 1982 and left side 2010 right side done when had hysterectomy at [place] Hx of tonsillectomy Status post reverse arthroplasty of right shoulder History of arthroplasty of left shoulder Family History Son Sarcoidosis Mother Cancer Sister Rheumatoid arthritis Grandmother Diabetes Father Cancer Myocardial infarction Social History (Updated 06/03/25 @ 18:03 by Skinny Mckeon MD) Smoking and tobacco/nicotine status: never used tobacco/nicotine Second hand smoke exposure: No Alcohol intake: current Alcohol intake frequency: holidays/special occasions only Substance/Drug Use: never Additional social history: 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, 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 she wants full code including brief intubation but not prolong life support as discussed with Skinny Mckeon MD on 06/03/2025 and in the presence of her afskkatl-kn-oer Talisha Lynn Household members: spouse Marital status: Current occupational status: retired 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 No lymphadenopathy. Heart: Regular rate and rhythm. Abdomen: Soft, nontender, nondistended. No masses or lymphadenopathy. Urinary Catheter Management: Romeo: Cath Placed During This Visit: yes Reason for Continuing Indwelling Catheter: Other Urinary Catheter Date of Insertion: 06/03/25 Urinary Catheter Time of Insertion: 18:38 Data 06/09/25 04:45 06/09/25 04:45 Micro: Microbiology 06/03/25 13:27 Blood Culture - Final Blood NO GROWTH AFTER 5 DAYS 06/03/25 13:29 Blood Culture - Final Blood NO GROWTH AFTER 5 DAYS A&P Assessment and plan 1. CKD (chronic kidney disease): Plan: 79-year-old female who presented with renal failure. Nephrology requesting tunneled dialysis catheter insertion. Discussed risk and benefits and patient agreed to proceed with tunneled dialysis catheter insertion. PDMP PDMP Reviewed: Not Reviewed Coding Level of Care Code 98021 Diagnoses CKD (chronic kidney disease) N18.9
[2025-06-08 18:50] LABS: ALPHA 1 GLOBULIN 0.4 g/dL (0.2-0.3); ALPHA 2 GLOBULIN 0.8 g/dL (0.5-0.9); BETA 1 GLOBULIN 0.4 g/dL (0.4-0.6); BETA 2 GLOBULIN 0.3 g/dL (0.2-0.5)
[2025-06-08] MEDS: HYDROcodone-acetaminophen 5-325 mg Tablet 1 TAB PO (22:18)
[2025-06-08] MEDS: fluticasone nasal spray 16gm Btl 2 SPRAY INTRANASAL (22:19)
[2025-06-09] VITALS (15 sets, daily range): BP systolic 111–147; BP diastolic 67–96; PULSE 89–111; RESP 16–22; TEMP 36.3–37.9; O2SAT 90–98
[2025-06-09 05:23] LABS: Hematocrit 27.6 % (36-47); Hemoglobin 9.00 g/dL (11.27-16.99); Mean Corpuscular HGB Conc 32.6 g/dL (30-55); Mean Corpuscular Hemoglobin 34.6 pg (27-33); Mean Corpuscular Volume 106.2 fl (85-98); Nucleated Red Blood Cells % 2.5 %; Platelet Count 279 10^3/cmm (157-399); Red Blood Count 2.60 10^6/uL (3.85-5.65); White Blood Count 8.16 10^3/uL (3.29-11.43)
[2025-06-09] MEDS: FUROsemide 10 mg/mL SDV 10mL 80 MG IVP ×2 (05:30→16:53)
[2025-06-09] MEDS: carbidopa-levodopa ER 50-200mg Tablet 1 EACH PO ×3 (05:31→21:35)
[2025-06-09 05:49] LABS: Alanine Aminotransferase < 5 U/L (0-33); Albumin Level 3.6 g/dL (3.5-5.2); Alkaline Phosphatase 74 U/L (35-105); Anion Gap 19.6 (5-19); Aspartate Amino Transferase 27 U/L (0-32); Calcium 9.6 mg/dL (8.5-10.5); Carbon Dioxide 29 mmol/L (22-29); Chloride 99 mmol/L (98-107); Creatinine Clr Calc Pharmacy 19.0078; Globulin 2.1 g/dL (1.3-4.6); Glucose 113 mg/dL (65-115); Magnesium 2.0 mg/dL (1.7-2.3); Osmolality Calculated 323 mOsm/kg (285-295); Potassium 3.6 mmol/L (3.5-5.1); Sodium 144 mmol/L (136-145); Total Protein 5.7 g/dL (6.6-8.7)
[2025-06-09 06:08] LABS: Blood Urea Nitrogen 81 mg/dL (8-23)
--- NOTE | 2025-06-09 08:51 | P.PN_ITS ---
Subjective 2 Subjective: no new c/o Medications: Reviewed: Yes Vitals/I&O/Wt Last Vital Signs Temp 97.6 F 06/09/25 07:37 Pulse 94 06/09/25 08:24 Resp 16 06/09/25 08:24 BP 111/68 06/09/25 07:37 Pulse Ox 93 06/09/25 08:24 O2 Del Method Room Air 06/09/25 08:24 FiO2 21 06/07/25 20:50 06/08/25 06/09/25 06/09/25 22:59 06:59 14:59 Intake Total 60 / 360 Output Total 1400 / 2350 450 / 2800 800 / 800 Balance -1340 / -1990 -450 / -2440 -800 / -800 Weight last 48 hrs Weight 119.975 kg Weight 122.152 kg Physical Exam 2 Narrative: awake , alert , no distress oBESE No JVD peerla S1S2 RRR Lungs clear yolis Abd soft , non tender Ext no edema skin , no rash Urinary Catheter Management: Romeo: Cath Placed During This Visit: yes Reason for Continuing Indwelling Catheter: Acute Urinary Retention or Obstruction Urinary Catheter Date of Insertion: 06/03/25 Urinary Catheter Time of Insertion: 18:38 Data 06/09/25 04:45 06/09/25 04:45 Micro: Microbiology 06/03/25 13:27 Blood Culture - Final Blood NO GROWTH AFTER 5 DAYS 06/03/25 13:29 Blood Culture - Final Blood NO GROWTH AFTER 5 DAYS A&P Assessment and plan 1. Acute renal failure with oliguria: Plan: 1. Acute on chronic kidney disease stage III: Baseline creatinine seems to be in the mid 1 range-last in February 2025.Patient followed by [place] [facility] as outpatient - Etiology likely hypovolemia initially due to low blood pressures, since Entresto dose increased per patient. But creatinine has not improved much with IV fluid resuscitation. ? cardiorenal , agree with diuretics now , Cr rising , but still feels weak , SOB with exertion and has pooor appetite -->,requested tunnelled catheter placement and inititate HD - Renal ultrasound: ? right renal mass , CT abd - non diagnostic , can do CT with contrast once HD started - ordered serologies. Also patient has history of smoldering myeloma-ordered SPEP UPEP and free light chain - will arrange Nephrology and oncolgy follow up @ [facility] 2. Hyperkalemia: Mild, improved 3. Metabolic acidosis: In the setting of ANDER, status post bicarbonate drip monitor 4. History of CHF with ejection fraction 30 %, 5. Morbid obesity 6. Obstructive sleep apnea Patient evaluated using audiovisual cart. Time spent 40 minutes. PDMP PDMP Reviewed: Not Reviewed Attestations 2 Medical Necessity Statement*: per medicne Coding Level of Care Code Acute Code for Chg Fwd Diagnoses Acute renal failure with oliguria N17.9; R34
--- NOTE | 2025-06-09 11:14 | ANES.PREANE2 ---
Pre-Anesthetic Assessment Height/Weight: Height 5 ft 1 in Weight 264 lb 8 oz Temp Pulse Resp BP Pulse Ox O2 Del Method FiO2 97.6 F 94 16 111/68 93 Room Air 21 06/09/25 07:37 06/09/25 08:24 06/09/25 08:24 06/09/25 07:37 06/09/25 08:24 06/09/25 08:24 06/07/25 20:50 Preop Diagnosis: CKD Operation Date: 06/09/25 12:00 Proposed Procedures p Insertion Central Venous Access Device-Tunnelled Dialysis Catheter Insertion(Not Applicable) - Doyle Santizo MD Was Beta Areli taken within 24 hours: N/A Was Clonidine taken within 24 hours: N/A Social No alcohol and No tobacco Exam alert, oriented x 3 and regular rate & rhythm Airway Submandibular: within normal limits Cervical ROM: within normal limits Mallampati: Class III Dentition: caps and full Anesthetic Plan ASA status: 4 Anesthesia: MAC Other: Patient initially admitted on 06/03/2025 with acute renal failure, oliguric Patient with a BUN of 104 and creatinine 4.3 upon admission History of nonischemic cardiomyopathy with prior infarct of LAD. LV function showing 24% on nuclear imaging. Echo showed EF of 35 to 40% History of TRACEY on CPAP BMI 50 History of hypothyroid thyroidism on Synthroid GERD, on Protonix Patient needs hemodialysis, creatinine continues to be elevated Labs reviewed from today, hemoglobin 9.0, WBC 8.1, BUN 81, CR 3.0 EKG sinus rhythm Plan for MAC anesthesia with local via surgeon Medications/Allergies Home Medications ?Medication ?Instructions ?Recorded ?Confirmed ?Last Taken ?Type carbidopa ER 50 mg-levodopa 200 mg 1 tab PO TID 09/09/19 06/03/25 06/03/25 History tablet,extended release montelukast 10 mg tablet 10 mg PO BEDTIME 09/09/19 06/03/25 06/02/25 History (Singulair) gabapentin 300 mg capsule 300 mg PO BEDTIME 11/29/20 06/03/25 06/02/25 History cetirizine 10 mg tablet (Zyrtec) 10 mg PO DAILY PRN Allergy Symptoms 05/11/21 06/03/25 10/22/24 History sennosides 8.6 mg-docusate sodium 1 tab PO DAILY PRN Constipation 12/05/21 06/03/25 10/21/24 History 50 mg tablet (Senna Plus) chlorpheniramine maleate 4 mg 4 mg PO BEDTIME PRN Itching 06/12/22 06/03/25 10/21/24 History tablet (Aller-Chlor) multivitamin 1 tab PO DAILY 06/12/22 06/03/25 06/03/25 History fluticasone propionate 50 2 spray intranasal .hs 07/12/22 06/03/25 06/02/25 History mcg/actuation nasal spray,suspension (Flonase Allergy Relief) pantoprazole 40 mg tablet,delayed 40 mg PO BID #90 tabs 07/12/22 06/03/25 06/03/25 Rx release noqxpykpbvy-kyv-hmgtrhlgb-vitC 1 cap PO BID 01/17/23 06/03/25 06/03/25 History capsule (Glucosamine Complex-MSM capsule) turmeric root extract 500 mg 3,000 mg PO DAILY 11/22/23 06/03/25 06/03/25 History capsule diclofenac sodium 1 % topical gel See Rx Instructions .Route 05/22/24 06/03/25 Unknown Rx .COMPLEX #300 grams cyclobenzaprine 10 mg tablet 10 mg PO BEDTIME 05/23/24 06/03/25 06/02/25 History fluticasone 500 mcg-salmeterol 50 1 inh inhalation BID 05/23/24 06/03/25 06/03/25 History mcg/dose blistr powdr for inhalation (Advair Diskus) zolpidem 5 mg tablet (Ambien) 2.5 mg PO BEDTIME PRN Insomnia 05/23/24 06/03/25 10/21/24 History atorvastatin 40 mg tablet 40 mg PO DAILY #90 tabs 12/30/24 06/03/25 06/02/25 Rx bisoprolol fumarate 5 mg tablet 2.5 mg (1/2 x 5 mg) PO DAILY #45 12/30/24 06/03/25 06/03/25 Rx tabs torsemide 20 mg tablet 10 mg PO DAILY 02/03/25 06/03/25 Unknown History hydrocodone 5 mg-acetaminophen 325 1 tab PO Q6H PRN Pain 03/03/25 06/03/25 Unknown History mg tablet allopurinol 100 mg tablet 200 mg (2 x 100 mg) PO DAILY #180 08/11/25 10/29/25 10/29/25 Rx tabs albuterol sulfate 90 mcg/actuation 2 puff inhalation QID PRN Wheezing 06/03/25 06/03/25 Unknown History aerosol inhaler clindamycin phosphate 1 % lotion 1 applic topical DAILY PRN skin 06/03/25 06/03/25 Unknown History rash estradiol 0.01% (0.1 mg/gram) 1 g vaginal DAILY 06/03/25 06/03/25 Unknown History vaginal cream hydroxychloroquine 200 mg tablet See Rx Instructions .Route .COMPLEX 06/03/25 06/03/25 06/03/25 History (Plaquenil) levothyroxine 150 mcg tablet 150 mcg PO DAILY 06/03/25 06/03/25 06/03/25 History (Synthroid) lidocaine 5 % topical patch 1 patch topical DAILY PRN Pain 06/03/25 06/03/25 Unknown History mometasone 0.1 % topical solution 1 applic topical DAILY PRN skin 06/03/25 06/03/25 Unknown History rash sacubitril 24 mg-valsartan 26 mg See Rx Instructions .Route .COMPLEX 06/03/25 06/03/25 06/03/25 History tablet (Entresto) triamcinolone acetonide 0.1 % 1 applic topical DAILY PRN skin 06/03/25 06/03/25 Unknown History topical cream rash Allergies Allergy/AdvReac Type Severity Reaction Status Date / Time adhesive tape Allergy Intermediate rash, Verified 03/03/25 10:26 itch, DERMABOND 2-octyl cyanoacrylate Allergy ALGY-Bliste Verified 03/03/25 10:26 r DANNY Inhibitors Allergy ADR-Cough Verified 03/03/25 10:26 povidone-iodine (From Allergy ALGY-Bliste Verified 03/03/25 10:26 Betadine) r propranolol (From Inderal LA) Allergy ADR-Depress Verified 03/03/25 10:26 ion soap (From Betadine) Allergy ALGY-Bliste Verified 03/03/25 10:26 r verapamil Allergy ADR-Headach Verified 03/03/25 10:26 e Current Medications Generic Name Dose Route Start Last Admin Trade Name Freq PRN Reason Stop Dose Admin Hydrocodone Bitart/Acetaminophen 1 tab 06/03/25 20:53 06/08/25 22:18 Hydrocodone-Acetaminophen 5-325 Mg Tablet PO 1 tab Q6H PRN Administration PAIN Albuterol Sulfate 2.5 mg 06/06/25 20:00 06/09/25 08:24 Albuterol 2.5 Mg/3 Ml Neb INHALATION 2.5 mg QID.RESPIRATORY MAL Administration Atorvastatin Calcium 40 mg 06/07/25 05:00 06/09/25 05:31 Atorvastatin 40 Mg Tablet PO 40 mg DAILY MAL Administration Budesonide 0.5 mg 06/06/25 20:00 06/09/25 08:24 Budesonide 0.5 Mg/2 Ml Neb INHALATION 0.5 mg BID.RESPIRATORY MAL Administration Carbidopa/Levodopa 1 each 06/03/25 21:00 06/09/25 05:31 Carbidopa-Levodopa Er 50-200mg Tablet PO 1 each TID MAL Administration Cetirizine HCl 10 mg 06/05/25 13:40 06/09/25 05:31 Cetirizine 10 Mg Tablet PO 10 mg DAILY MAL Administration Cyclobenzaprine HCl 10 mg 06/03/25 21:00 06/07/25 21:25 Cyclobenzaprine 10 Mg Tablet PO 10 mg On Hold: 06/08/25 11:31 BEDTIME MAL Administration Fluconazole 100 mg 06/07/25 21:00 06/09/25 05:31 Fluconazole 100 Mg Tablet PO 06/12/25 20:59 100 mg DAILY MAL Administration Fluticasone Propionate 2 spray 06/06/25 21:00 06/08/25 22:19 Fluticasone Nasal [place] 16gm Btl INTRANASAL 2 spray BEDTIME MAL Administration Furosemide 80 mg 06/05/25 10:00 06/09/25 05:30 Furosemide 10 Mg/Ml Sdv 10ml IVP 80 mg BID MAL Administration Gabapentin 300 mg 06/03/25 21:00 06/08/25 22:19 Gabapentin 300 Mg Capsule PO 300 mg BEDTIME MAL Administration Lactulose 20 gm 06/07/25 10:30 06/08/25 17:54 Lactulose Oral Liq 20 Gm/30 Ml Udc PO Not Given On Hold: 06/09/25 00:11 Q6H MAL Comment: patient has had 2 BM Levothyroxine Sodium 200 mcg 06/07/25 05:00 06/09/25 05:30 Levothyroxine 200 Mcg Tablet PO 200 mcg DAILY MAL Administration Metolazone 5 mg 06/05/25 10:00 06/09/25 05:31 Metolazone 5 Mg Tablet PO 5 mg DAILY MAL Administration Midodrine 10 mg 06/07/25 21:00 06/09/25 05:31 Midodrine 5 Mg Tablet PO 10 mg TID MAL Administration Montelukast Sodium 10 mg 06/03/25 21:00 06/08/25 22:18 Montelukast Sodium 10 Mg Tablet PO 10 mg BEDTIME MAL Administration Pantoprazole Sodium 40 mg 06/04/25 05:00 06/09/25 05:[address] 40 Mg Tablet PO 40 mg DAILY MAL Administration Zolpidem Tartrate 2.5 mg 06/03/25 20:53 06/08/25 22:18 Zolpidem 5 Mg Tablet PO 2.5 mg BEDTIME PRN Administration INSOMNIA PFSH Anesthesia Medical History (Updated 06/08/25 @ 13:58 by Can Concepcion MD) Sleep apnea treated with continuous positive airway pressure (CPAP) Episcleritis History of iron deficiency anemia Anxiety and depression Peripheral neuropathy Hypothyroidism GERD (gastroesophageal reflux disease) Morbid obesity with BMI of 45.0-49.9, adult Stenosis of cervical spine with myelopathy Cervical disc disorder with myelopathy of mid-cervical region Intervertebral disc disorder with radiculopathy of lumbosacral region Sleep apnea Dyslipidemia Obesity Nonischemic cardiomyopathy Essential hypertension Hyperuricemia CKD (chronic kidney disease) MGUS (monoclonal gammopathy of unknown significance) Degenerative lumbar spinal stenosis Erosive osteoarthritis Gout, arthritis Surgical History Status post surgical removal of malignant neoplasm of skin Basal cell carcinoma History of lumbar laminectomy (05/13/21) Lumbar laminectomy at L4 and L5 with L4/5 interbody fusion and with L5/S1 interbody fusion History of surgical removal of ganglion cyst right wrist History of knee joint replacement Left 06/2018 right 12/2017 Hx of foot surgery Right x2-sub talur fusoin and arthrodesis Hx of hysterectomy Hx of bilateral oophorectomy with Dr. Watts at [facility] in 1982 and left side 2011 right side done when had hysterectomy at [place] Hx of tonsillectomy Status post reverse arthroplasty of right shoulder History of arthroplasty of left shoulder Family History Son Sarcoidosis Mother Cancer Sister Rheumatoid arthritis Grandmother Diabetes Father Cancer Myocardial infarction Social History (Updated 06/03/25 @ 18:03 by Skinny Mckeon MD) Smoking and tobacco/nicotine status: never used tobacco/nicotine Second hand smoke exposure: No Alcohol intake: current Alcohol intake frequency: holidays/special occasions only Substance/Drug Use: never Additional social history: 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, 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 she wants full code including brief intubation but not prolong life support as discussed with Skinny Mckeon MD on 06/03/2025 and in the presence of her [id number] Talisha Lynn Household members: spouse Marital status: Current occupational status: retired 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 Data Anesthesia 06/09/25 04:45 06/09/25 04:45 Short CBC 06/09/25 Range/Units 04:45 WBC 8.16 (3.29-11.43) 10^3/uL Hgb 9.00 L (11.27-16.99) g/dL Hct 27.6 L (36-47) % MCV 106.2 H (85-98) fl Plt Count 279 (157-399) 10^3/cmm Neut % (Auto) 75.5 % Neut # (Auto) 6.15 (1.8-7.7) 10^3/uL BMP 06/08/25 06/09/25 04:49 04:45 Sodium 142 144 Potassium 3.8 3.6 Chloride 99 99 Carbon Dioxide 26 29 BUN 84 H* 81 H Creatinine 2.8 H 3.0 H Glucose 100 113 Calcium 9.6 9.6 Liver Function 06/04/25 06/09/25 Range/Units 16:38 04:45 Total Bilirubin 0.4 (0.15-1.2) mg/dL AST 27 (0-32) U/L ALT < 5 (0-33) U/L Alkaline Phosphatase 74 (35-105) U/L Albumin 3.4 L 3.6 (3.8-4.8) g/dL Microbiology 06/03/25 13:27 Blood Culture - Final Blood NO GROWTH AFTER 5 DAYS 06/03/25 13:29 Blood Culture - Final Blood NO GROWTH AFTER 5 DAYS Cardiac Studies: Echocardiogram 06/04/25 Echocardiogram Ultrasound 10/24/19 Sestamibi Stress Test (Cardiology) 11/05/24 Cardiac Event Monitor 09/11/24
--- NOTE | 2025-06-09 12:15 | P.PN_ITS ---
Subjective 2 Subjective: No acute events overnight. Patient seen with family at bedside. States feeling better. Denies any nausea, vomiting. Awaiting placement of permacatheter today. Medications: Reviewed: Yes Vitals/I&O/Wt Last Vital Signs Temp 98.6 F 06/09/25 11:21 Pulse 107 H 06/09/25 11:21 Resp 16 06/09/25 11:21 BP 143/93 06/09/25 11:21 Pulse Ox 92 06/09/25 11:21 O2 Del Method Room Air 06/09/25 11:21 FiO2 21 06/07/25 20:50 06/08/25 06/09/25 06/09/25 22:59 06:59 14:59 Intake Total 60 / 360 Output Total 1400 / 2350 450 / 2800 800 / 800 Balance -1340 / -1990 -450 / -2440 -800 / -800 Weight last 48 hrs Weight 119.975 kg Weight 122.152 kg Physical Exam 2 Narrative: General well-developed well-nourished morbidly obese female in no acute cardiopulmonary stress CV regular rate and rhythm Lungs bibasilar crackles heard incompletely cleared with deep breaths improved from yesterday Abdomen positive bowel tones soft obese nontender Calves 2+ bilateral pretibial edema and DALTON hose are in place Mood and affect normal Urinary Catheter Management: Romeo: Cath Placed During This Visit: yes Reason for Continuing Indwelling Catheter: Acute Urinary Retention or Obstruction Urinary Catheter Date of Insertion: 06/03/25 Urinary Catheter Time of Insertion: 18:38 Data 06/09/25 04:45 06/09/25 04:45 Micro: Microbiology 06/03/25 13:27 Blood Culture - Final Blood NO GROWTH AFTER 5 DAYS 06/03/25 13:29 Blood Culture - Final Blood NO GROWTH AFTER 5 DAYS A&P Assessment and plan 1. Acute renal failure with oliguria: Romeo in place and continue diuretics. Serum bicarb 28 off bicarbonate replacement fluid patient is hard to diurese in part due to hypotension. Midodrine started yesterday but blood pressure still systolic 103. Will increase midodrine to 10 mg 3 times daily 2. Uremia: 3. Nonischemic cardiomyopathy: 4. Acute on chronic combined systolic and diastolic congestive heart failure: EF 25 to 35% based on prior nuclear images and echo. Continue home CPAP for sleep Repeat echocardiogram showed EF 30% and grade 2/4 diastolic dysfunction no pericardial effusion. Severe aortic valve calcification noted with moderate aortic valve stenosis and moderate mitral valve regurg 5. Mild aortic stenosis: 6. Sleep apnea treated with continuous positive airway pressure (CPAP): Resume home APAP on her ResMed 11 machine 7. Esophageal dysphagia: Esophagram shows esophageal spasm and moderate-sized hiatal hernia and esophagus is displaced will need to further image for possible goiter or mass. Will allow contrast from barium swallow to pass and plan on CT of the chest abdomen pelvis to include the neck on Sunday Patient also has a right kidney mass to be evaluated. She needs to pass her stool regarding barium swallow before proceeding with repeat imaging 8. Hypothyroidism: TSH was 9 so I raise the levothyroxine. Notably patient had possible goiter on chest x-ray based on displacement of esophagus on barium swallow. CT scan ordered for the morning. We are awaiting passage of barium because that had compromised images of the kidney on last CT scan 9. Acute on chronic renal insufficiency: 10. MGUS (monoclonal gammopathy of unknown significance): Plan: Plan for the day: Acute renal failure on CKD most likely in setting of CRS and home Entresto. Renal functions continue to improve but very gradually. Patient on high-dose of diuretics with Lasix 80 mg IV twice daily along with metolazone 5 mg daily. Echocardiogram shows EF of 30% with grade 2 diastolic dysfunction along with global LV hypokinesia and moderate aortic valve stenosis. Care discussed in detail with nephrology. Given low EF, very gradually improving renal function with uremia, persistent symptoms of uremia, requirement of hide diuresis patient most likely would improve with dialysis. Had a detailed discussion with patient with family at bedside. Patient is agreeable for dialysis for now. Plan for dialysis catheter placement today. Will start on dialysis after that. Requested case management for set up of outpatient dialysis chair time. Goal blood pressure less than 140/90 mmHg. Will restart antihypertensive depending on blood pressures postdialysis. As an outpatient she is on bisoprolol and Entresto. Currently on midodrine 10 mg 3 times daily. Blood pressure is better today. If continues to remain better we changed to 5 mg 3 times daily to be withheld for a systolic of more than 120 mmHg. PDMP PDMP Reviewed: Not Reviewed Attestations 2 Medical Necessity Statement*: Requires further hospitalization for management of ANDER on CKD while patient requires initiation of dialysis in setting of congestive systolic and diastolic heart failure Diagnoses Acute renal failure with oliguria N17.9; R34 Uremia N19 Nonischemic cardiomyopathy I42.8 Acute on chronic combined systolic and diastolic congestive heart failure I50.43 Mild aortic stenosis I35.0 Sleep apnea treated with continuous positive airway pressure (CPAP) G47.30 Esophageal dysphagia R13.19 Hypothyroidism E03.9 Acute on chronic renal insufficiency N28.9; N18.9 MGUS (monoclonal gammopathy of unknown significance) D47.2
[2025-06-09 12:17] LABS: Hepatitis B Surface Antigen Non-Reactive (Nonreactive)
--- NOTE | 2025-06-09 12:19 | P.PN_ITS ---
Subjective 2 Subjective: NAEON Vitals/I&O/Wt Last Vital Signs Temp 98.6 F 06/09/25 11:21 Pulse 107 H 06/09/25 11:21 Resp 16 06/09/25 11:21 BP 143/93 06/09/25 11:21 Pulse Ox 92 06/09/25 11:21 O2 Del Method Room Air 06/09/25 11:21 FiO2 21 06/07/25 20:50 06/08/25 06/09/25 06/09/25 22:59 06:59 14:59 Intake Total 60 / 360 Output Total 1400 / 2350 450 / 2800 800 / 800 Balance -1340 / -1990 -450 / -2440 -800 / -800 Weight last 48 hrs Weight 264 lb 8 oz Weight 269 lb 4.8 oz Physical Exam 2 Narrative: chest and neck grossly normal rrr unlabored breathing ra abdomen soft Urinary Catheter Management: Romeo: Cath Placed During This Visit: yes Reason for Continuing Indwelling Catheter: Acute Urinary Retention or Obstruction Urinary Catheter Date of Insertion: 06/03/25 Urinary Catheter Time of Insertion: 18:38 Data 06/09/25 04:45 06/09/25 04:45 Micro: Microbiology 06/03/25 13:27 Blood Culture - Final Blood NO GROWTH AFTER 5 DAYS 06/03/25 13:29 Blood Culture - Final Blood NO GROWTH AFTER 5 DAYS A&P Assessment and plan 1. Acute on chronic renal insufficiency: Plan: 79yo female CKD. Surgery consulted for TDC. Had an extensive discussion with the patient. Answered all of ther questions. Patient undestands the risks of the surgery include infection, bleeding, stroke, arterial injury, massive bleeding, and . Patient still decides to proceed. Discussed non procedural and minimally invasive options. Patient still decides to proceed with tunneled dialysis catheter insertion. PDMP PDMP Reviewed: Not Reviewed Attestations 2 Medical Necessity Statement*: NA Coding Level of Care Code 36471 Diagnoses Acute on chronic renal insufficiency N28.9; N18.9
[2025-06-09 12:35] LABS: ANCA Screen NEGATIVE (NEGATIVE)
[2025-06-09] MEDS: ceFAZolin 2,000 mg SDV 3000 MG IVP (12:38)
[2025-06-09] MEDS: BUPivacaine 0.25% INJ 30 mL INJECTION (12:43)
[2025-06-09] MEDS: lidocaine-epi 1% PF 1:200,000 30 mL SDV INJECTION (12:43)
[2025-06-09] MEDS: heparin, porcine 1,000 unit/mL INJ 10 mL 10000 UNIT IRRIGATION (12:43)
--- NOTE | 2025-06-09 13:01 | P.OP_ITS ---
Operative Report Date of procedure: June 09, 2025 Pre-op diagnosis: Chronic kidney disease Post-op diagnosis: same Post-op findings: Tip of catheter at atriocaval junction confirmed with intraoperative fluoros copy. Catheter fully functional. Both lumens are drawing and flushing easily. Hep-locked. Procedure done: Tunneled dialysis catheter insertion Implants: Tunnel dialysis catheter Specimens removed/disposition: N/A Pathology: none sent Surgeon: Doyle Santizo MD Auto Brake Technician: N/A Anesthesia: MAC Estimated blood loss (mL): 20 Complications: N/A Findings: Tip of catheter at atriocaval junction confirmed with intraoperative fluoroscopy. Catheter fully functional. Both lumens are drawing and flushing easily. Hep-locked. Condition: stable Disposition: floor Brief History: 79-year-old female who presented in renal failure. Discussed risk benefits and patient agreed to proceed with tunneled dialysis catheter insertion. Procedure: The patient was taken to the operating room and placed under MAC after IV antibiotic had been administered. The chest and neck were prepped and draped in a sterile manner bilaterally. An ultrasound of the right internal jugular vein revealed patent flow, no thrombus identified. Using introducer needle the internal jugular vein on the right side was accessed and guidewire passed into the right atrium under fluoroscopy. Under fluoroscopy the location for the dialysis catheter was marked. Using 15 blade a skin incision was extended at the vein access site as well as the previously marked location on the right chest wall. The dialysis catheter was attached to the tunneler and passed subcutaneously, exiting at the venous access site. Serial dilators were passed over the guidewire under fluoroscopy. Finally the dilator peel-away sheath was passed over the guidewire and the inner dilator and guidewire was removed and the dialysis catheter was introduced into the right internal jugular vein as the peel-away sheath was removed. The tip of the catheter was noted to be in the right atrium. Both ports of the catheter nataly blood and flushed easily. The catheter was sutured to the skin using 3-0 Prolene and the venous access site was closed with 4-0 Monocryl and Dermabond. A total of 5 mL of 1:10,000 heparin was injected into the 2 ports under dialysis catheter. Fluoroscopic guidance and interpretation for passage of guidewire and dilator and placement of catheter tip in the atriocaval junction.
--- NOTE | 2025-06-09 13:12 | ANE.PACU2 ---
Inpatient post-anesthesia follow up: Airway intact: Yes Vital signs: Temperature 97.8 F Pulse Rate 100 Respiratory Rate 16 Blood Pressure 146/76 Pulse Oximetry 92 Oxygen Delivery Me thod Room Air Oxygen Flow Rate 6 Fraction of Inspir ed Oxygen 21 Hydration adequate: Yes Nausea and vomiting: No Pain level: 1 Mental status: Baseline
--- NOTE | 2025-06-09 14:32 | SC_ITS ---
WS: [id number] C-arm fluoroscopy for dialysis catheter insertion, 06/09/2025 Clinical Data: DIALYSIS Comparison: Portable chest, 06/03/2025 Findings: Dr. Concepcion inserted a right dialysis catheter. SC/C-arm FL for CVA [id number] Impression: Right dialysis catheter insertion.
--- NOTE | 2025-06-09 15:32 | PC.OT ---
Skilled OT treatment on hold d/t dialysis catheter insertion procedure today
[2025-06-09 16:28] LABS: Albumin,Urine Random 73 %; Alpha-1-Globulins Urine Random 3 %; Alpha-2-Globulins Urine Random 5 %; Beta-Globulin,Urine Random 10 %; Gamma Globulin,Urine Random 10 %
[2025-06-09] MEDS: heparin, porcine 1,000 unit/mL INJ 10 mL 1000 UNIT IV (18:39)
[2025-06-09] MEDS: heparin, porcine 1,000 unit/mL INJ 10 mL 10000 UNIT INTRACATH (18:39)
[2025-06-09] MEDS: HYDROcodone-acetaminophen 5-325 mg Tablet 1 TAB PO (21:35)
[2025-06-09] MEDS: fluticasone nasal spray 16gm Btl 2 SPRAY INTRANASAL (21:36)
[2025-06-10] VITALS (62 sets, daily range): BP systolic 91–148; BP diastolic 66–96; PULSE 95–108; RESP 13–40; TEMP 36.8–37.5; O2SAT 85–95
[2025-06-10] MEDS: carbidopa-levodopa ER 50-200mg Tablet 1 EACH PO ×3 (04:16→20:29)
[2025-06-10] MEDS: FUROsemide 10 mg/mL SDV 10mL 80 MG IVP ×2 (04:17→16:40)
[2025-06-10 05:52] LABS: Hematocrit 30.7 % (36-47); Hemoglobin 10.20 g/dL (11.27-16.99); Mean Corpuscular HGB Conc 33.2 g/dL (30-55); Mean Corpuscular Hemoglobin 35.5 pg (27-33); Mean Corpuscular Volume 107.0 fl (85-98); Nucleated Red Blood Cells % 2.8 %; Platelet Count 283 10^3/cmm (157-399); Red Blood Count 2.87 10^6/uL (3.85-5.65); White Blood Count 10.50 10^3/uL (3.29-11.43)
[2025-06-10 06:14] LABS: Alanine Aminotransferase 13 U/L (0-33); Albumin Level 3.9 g/dL (3.5-5.2); Alkaline Phosphatase 98 U/L (35-105); Anion Gap 22.8 (5-19); Aspartate Amino Transferase 214 U/L (0-32); Blood Urea Nitrogen 60 mg/dL (8-23); Calcium 9.8 mg/dL (8.5-10.5); Carbon Dioxide 26 mmol/L (22-29); Chloride 98 mmol/L (98-107); Creatinine Clr Calc Pharmacy 22.3506; Globulin 2.4 g/dL (1.3-4.6); Glucose 122 mg/dL (65-115); Osmolality Calculated 314 mOsm/kg (285-295); Potassium 3.8 mmol/L (3.5-5.1); Sodium 143 mmol/L (136-145); Total Protein 6.3 g/dL (6.6-8.7)
[2025-06-10 06:19] LABS: Magnesium 2.0 mg/dL (1.7-2.3)
--- NOTE | 2025-06-10 07:06 | P.PN_ITS ---
Subjective 2 Subjective: No acute events overnight Dialysis catheter working Vitals/I&O/Wt Last Vital Signs Temp 98.7 F 06/10/25 03:29 Pulse 100 06/10/25 03:29 Resp 18 06/10/25 03:29 BP 108/72 06/10/25 03:29 Pulse Ox 90 06/10/25 03:29 O2 Del Method CPAP 06/10/25 03:29 O2 Flow Rate 2 06/09/25 15:32 FiO2 21 06/07/25 20:50 06/09/25 06/10/25 06/10/25 22:59 06:59 14:59 Intake Total 500 / 510 Output Total 3252 / 4057 200 / 4257 Balance -2752 / -3547 -200 / -3747 Weight last 48 hrs Weight 256 lb Weight 253 lb 12.033 oz Weight 264 lb 8 oz Physical Exam 2 Narrative: Chest: Right-sided tunneled dialysis catheter working. Heart: Regular rate and rhythm. Abdomen: Soft, nontender, nondistended. No masses or lymphadenopathy. Urinary Catheter Management: Romeo: Cath Placed During This Visit: yes Reason for Continuing Indwelling Catheter: Acute Urinary Retention or Obstruction Urinary Catheter Date of Insertion: 06/03/25 Urinary Catheter Time of Insertion: 18:38 Data 06/12/25 05:30 06/12/25 05:30 A&P Assessment and plan 1. CKD (chronic kidney disease): Plan: 79-year-old female who presents with chronic kidney disease. Tunneled dialysis catheter placed. Functional. Rest of care per hospitalist. PDMP PDMP Reviewed: Not Reviewed Attestations 2 Medical Necessity Statement*: N/A Coding Level of Care Code 66549 Diagnoses CKD (chronic kidney disease) N18.9
--- NOTE | 2025-06-10 08:16 | PC.NURSE ---
During bedside report at 0700, pt complains of sob. Oxygen sat 84% on room air. Oxygen placed on pt and sats increase to 91-92% on 3L. Dr. Concepcion advised.
--- NOTE | 2025-06-10 08:37 | XR_ITS ---
WS: [id number] Portable AP upright chest, 06/10/2025 Clinical Data: hypoxia Comparison: Portable chest, 06/03/2025 Findings: No nodules or masses are seen. The heart is enlarged. The pulmonary vascularity is slightly increased. No pneumonia or pneumothorax is seen. The aortic arch shows mild calcification and tortuosity. There are small bilateral pleural effusions. There is a right dialysis catheter which ends at the caval atrial junction. There are bilateral reverse shoulder arthroplasties. There is contrast in the colon from recent CT chest abdomen pelvis. Monitor leads are on the chest wall. XR/XR chest 1V portable [id number] Impression: 1. Cardiomegaly with mild pulmonary vascular congestion. 2. Atherosclerosis and small bilateral pleural effusions.
[2025-06-10] MEDS: heparin 5,000 unit/mL INJ 1 mL 5000 UNIT SUBCUT ×2 (08:52→19:51)
--- NOTE | 2025-06-10 09:45 | PC.SOCIAL ---
IMM Update pg 2 of IMM Updated and reviewed w/ patient. Copy provided and copy dated, initialed and placed in chart.
--- NOTE | 2025-06-10 10:28 | CTR_ITS ---
PROCEDURE INFORMATION: Exam: CTA Chest With Contrast Exam date and time: 06/10/2025 11:40 AM Age: 79 years old Clinical indication: Other: Shortness of breath; Prior surgery; Surgery date: 6+ months; Surgery type: Bilatera shoulders; Additional info: Shortness of breath. , PT will go to dialysis after cta TECHNIQUE: Imaging protocol: Computed tomographic angiography of the chest with contrast. Exam focused on the arteries. 3D rendering (Not supervised by radiologist): MIP and/or 3D reconstructed images were created by the technologist. Radiation optimization: All CT scans at this facility use at least one of these dose optimization techniques: automated exposure control; mA and/or kV adjustment per patient size (includes targeted exams where dose is matched to clinical indication); or iterative reconstruction. Contrast material: OMNI 350; Contrast volume: 100 ml; Contrast route: INTRAVENOUS (IV); COMPARISON: CT chest [facility] [id number] 06/08/2025 12:29 PM RADIATION DOSE METRICS: Total DLP (mGy-cm): 2640 FINDINGS: Pulmonary arteries: Normal. No pulmonary emboli. Aorta: Unremarkable. No aortic aneurysm. No aortic dissection. Lungs: Patchy consolidative infiltrate in each lower lobe, right greater than left. Pleural spaces: Unremarkable. No pneumothorax. No pleural effusion. Heart: Unremarkable. No cardiomegaly. No pericardial effusion. Lymph nodes: Visible central lymph nodes are nonspecific in appearance, likely reactive given the multifocal pneumonia present. Diaphragm: Moderate hiatal hernia. Bones/joints: Bilateral shoulder replacement. Soft tissues: Unremarkable. PROCEDURE INFORMATION: Exam: CT Abdomen And Pelvis With Contrast Exam date and time: 06/10/2025 11:40 AM Age: 79 years old Clinical indication: Other: Shortness of breath; Prior surgery; Surgery date: 6+ months; Surgery type: Bilatera shoulders; Additional info: Shortness of breath. , PT will go to dialysis after cta TECHNIQUE: Imaging protocol: Computed tomography of the abdomen and pelvis with contrast. Radiation optimization: All CT scans at this facility use at least one of these dose optimization techniques: automated exposure control; mA and/or kV adjustment per patient size (includes targeted exams where dose is matched to clinical indication); or iterative reconstruction. Contrast material: OMNI 350; Contrast volume: 100 ml; Contrast route: INTRAVENOUS (IV); COMPARISON: CT chest [facility] [id number] 06/08/2025 12:29 PM RADIATION DOSE METRICS: Total DLP (mGy-cm): 2640 FINDINGS: Liver: Normal. No mass. Gallbladder and biliary ducts: Normal. No calcified stones. No ductal dilation. Pancreas: Normal. No ductal dilation. Spleen: Normal. No splenomegaly. Adrenal glands: Normal. No mass. Kidneys and ureters: Normal. No hydronephrosis. Stomach and bowel: Dense contrast within colon. Appendix: No evidence of appendicitis. Intraperitoneal space: Scant ascites. Vasculature: Unremarkable. No abdominal aortic aneurysm. Lymph nodes: Unremarkable. No enlarged lymph nodes. Urinary bladder: Unremarkable as visualized. Reproductive: Unremarkable as visualized. Bones/joints: Posterior lumbosacral fusion. Soft tissues: Anasarca. CT/CT angio chest [facility] [id number] IMPRESSION: Multifocal pneumonia with effusions. IMPRESSION: No acute subdiaphragmatic pathology.
--- NOTE | 2025-06-10 10:54 | USCV_ITS ---
Maryjo Lynn Age: 79 Gender: F : 1945 Exam Date: 06/10/2025 11:22 Ordering Phys: Can Concepcion MD Technologist: Exam Location: [facility] – [place] Indication: ? per effusion BP: 143 / 80 HR: Rhythm: Sinus Technical Quality: MEASUREMENTS (Male / Female) Normal Values 2D ECHO LV Diastolic Diameter PLAX 5.5 cm 4.2 - 5.9 / 3.9 - 5.3 cm IVS Diastolic Thickness 1.2 cm 0.6 - 1.0 / 0.6 - 0.9 cm IVS Systolic Thickness 1.4 cm LVPW Diastolic Thickness 1.3 cm 0.6 - 1.0 / 0.6 - 0.9 cm LVPW Systolic Thickness 1.9 cm LVOT Diameter 2.4 cm LV Ejection Fraction 2D Teich 20.5 % LV Ejection Fraction MOD 4C 10.8 % LV Ejection Fraction MOD 2C 16.7 % LV Ejection Fraction 2C AL 18.6 % LA Diameter 5.0 cm RA Systolic Volume 4C AL 92.3 ml RA Systolic Volume 4C MOD 88.7 ml Aorta at Sinotubular Diameter 3.1 cm FINDINGS Left Ventricle Moderately increased left ventricular cavity size. Severely decreased left ventricular systolic function. Left ventricular ejection fraction is estimated at 20 %. Global left ventricular hypokinesis. Right Ventricle Right Atrium Left Atrium IA Septum Mitral Valve Aortic Valve Tricuspid Valve Pulmonic Valve Pericardium No pericardial effusion. Aorta IVC CONCLUSIONS Limited echo Moderately increased left ventricular cavity size. Severely decreased left ventricular systolic function. Left ventricular ejection fraction is estimated at 20 %. Global left ventricular hypokinesis. No pericardial effusion. Brigitte Martinez MD (Electronically Signed) Final Date: 10 June 2025 11:53 S
--- NOTE | 2025-06-10 11:00 | PM.PN ---
Subjective Subjective: Patient was seen and examined. Short of breath uncomfortable and edematous. Medications: Reviewed: Yes Medication Review Details: Current Medications Acetaminophen (Acetaminophen 325 Mg Tablet) 650 mg PO Q6H PRN PRN Reason: Mild/Mod Pain Or Temp >/= 101 Hydrocodone Bitart/Acetaminophen (Hydrocodone-Acetaminophen 5-325 Mg Tablet) 1 tab PO Q6H PRN PRN Reason: PAIN Last Admin: 06/09/25 21:35 Dose: 1 tab Albuterol Sulfate (Albuterol 2.5 Mg/3 Ml Neb) 2.5 mg INHALATION QID.RESPIRATORY PRN PRN Reason: WHEEZING Albuterol Sulfate (Albuterol 2.5 Mg/3 Ml Neb) 2.5 mg INHALATION QID.RESPIRATORY MAL Last Admin: 06/10/25 08:02 Dose: 2.5 mg Artificial Tears (Artificial Tears Op Soln 15 Ml Btl) 1 drop EYE-BOTH Q4H PRN PRN Reason: DRY EYE(S) Atorvastatin Calcium (Atorvastatin 40 Mg Tablet) 40 mg PO DAILY MAL Last Admin: 06/10/25 04:16 Dose: 40 mg Budesonide (Budesonide 0.5 Mg/2 Ml Neb) 0.5 mg INHALATION BID.RESPIRATORY MAL Last Admin: 06/10/25 08:02 Dose: 0.5 mg Carbidopa/Levodopa (Carbidopa-Levodopa Er 50-200mg Tablet) 1 each PO TID MAL Last Admin: 06/10/25 04:16 Dose: 1 each Cetirizine HCl (Cetirizine 10 Mg Tablet) 10 mg PO DAILY MAL Last Admin: 06/10/25 04:17 Dose: 10 mg Fluconazole (Fluconazole 100 Mg Tablet) 100 mg PO DAILY MAL Stop: 06/12/25 20:59 Last Admin: 06/10/25 04:22 Dose: 100 mg Fluticasone Propionate (Fluticasone Nasal [place] 16gm Btl) 2 spray INTRANASAL BEDTIME MAL Last Admin: 06/09/25 21:36 Dose: 2 spray Furosemide (Furosemide 10 Mg/Ml Sdv 10ml) 80 mg IVP BID MAL Last Admin: 06/10/25 04:17 Dose: 80 mg Gabapentin (Gabapentin 300 Mg Capsule) 300 mg PO BEDTIME MAL Last Admin: 06/09/25 21:35 Dose: 300 mg Heparin Sodium (Porcine) (Heparin 5,000 Unit/Ml Inj 1 Ml) 5,000 unit SUBCUT Q12H MAL Last Admin: 06/10/25 08:52 Dose: 5,000 unit Sodium Chloride (Sodium Chloride 0.9%) 1,000 mls @ 0 mls/hr IV .Q0M PRN PRN Reason: hypotension or symptomatic Albumin Human (Albumin) 12.5 gm in 50 mls @ 60 mls/hr IV PRN PRN PRN Reason: Hypotension and/or symptomatic Sodium Chloride (Sodium Chloride 0.9%) 1,000 mls @ 0 mls/hr IV .Q0M PRN PRN Reason: hypotension or symptomatic Albumin Human (Albumin) 12.5 gm in 50 mls @ 60 mls/hr IV PRN PRN PRN Reason: Hypotension and/or symptomatic Levothyroxine Sodium (Levothyroxine 200 Mcg Tablet) 200 mcg PO DAILY [facility] Last Admin: 06/10/25 04:16 Dose: 200 mcg Midodrine (Midodrine 5 Mg Tablet) 5 mg PO TID [facility] Last Admin: 06/10/25 04:16 Dose: 5 mg Montelukast Sodium (Montelukast Sodium 10 Mg Tablet) 10 mg PO BEDTIME [facility] Last Admin: 06/09/25 21:36 Dose: 10 mg Ondansetron HCl (Ondansetron 2 Mg/Ml Sdv 2 Ml) 4 mg IVP Q8H PRN PRN Reason: vomiting, or N/V if npo Pantoprazole Sodium (Pantoprazole Dr 40 Mg Tablet) 40 mg PO DAILY [facility] Last Admin: 06/10/25 04:17 Dose: 40 mg Zolpidem Tartrate (Zolpidem 5 Mg Tablet) 2.5 mg PO BEDTIME PRN PRN Reason: INSOMNIA Last Admin: 06/09/25 21:36 Dose: 2.5 mg Vitals/I&O/Wt Last Vital Signs Temp 98.3 F 06/10/25 08:52 Pulse 102 H 06/10/25 08:52 Resp 19 H 06/10/25 08:52 BP 148/86 06/10/25 08:52 Pulse Ox 91 06/10/25 08:52 O2 Del Method Nasal Cannula 06/10/25 08:52 O2 Flow Rate 3 06/10/25 08:00 FiO2 21 06/07/25 20:50 06/09/25 06/10/25 06/10/25 22:59 06:59 14:59 Intake Total 500 / 510 Output Total 3252 / 4057 200 / 4257 Balance -2752 / -3547 -200 / -3747 Weight last 48 hrs Weight 116.12 kg Weight 115.1 kg Weight 119.975 kg Physical Exam Narrative: Obese lady. Blood pressure dropped. Was high this morning. Patient is short of breath requiring oxygen. Vital signs noted. HEENT normocephalic/atraumatic. Neck obese Lungs crackles on dull bases. Heart positive S1-S2. Abdomen is soft positive bowel sounds. Extremities 2-3+ edema bilaterally. Neuro awake alert and oriented interactive Urinary Catheter Management: Romeo: Cath Placed During This Visit: yes Reason for Continuing Indwelling Catheter: Acute Urinary Retention or Obstruction Urinary Catheter Date of Insertion: 06/03/25 Urinary Catheter Time of Insertion: 18:38 Data 06/10/25 05:05 06/10/25 05:05 A&P Assessment and plan 1. 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 Patient developed acute on chronic renal failure baseline creatinine 1.5 mg/dL in February 2025. She follows with [place] [facility]. Patient has known positive serum protein electrophoresis. Patient is now here with ANDER felt to be either ATN versus cardiorenal syndrome. Patient initiated dialysis yesterday for shortness of breath and volume overload. Plan is for repeating dialysis today. Patient developed hypotension this morning and is being transferred to the ICU and arrangement for CT PE protocol is being made. Please also get a CT of right renal mass at the same time. Would continue dialysis. Treat obstructive sleep apnea. Combined systolic and diastolic dysfunction as per cardiology. Follow-up as PAP and urine protein electrophoresis. Please ask cardiology if they feel that patient's echo can be consistent with cardiac amyloid. -Patient was seen and examined with the aid of a nurse using audiovisual equipment. This was a telehealth visit the patient consented to telehealth and to dialysis. Plan: See above PDMP PDMP Reviewed: Not Reviewed Attestations Medical Necessity Statement*: ander, acute on chronic Systolic and diastolic CHF Time Spent in Patient Care: Greater than 35 minutes (>than 50% of time spent in counselling and/or direct pt care on unit). Coding Level of Care Code Acute Code for Chg Fwd Diagnoses Acute renal failure with oliguria N17.9; R34
--- NOTE | 2025-06-10 11:14 | PC.NURSE ---
Report called to Brandon in ICU at this time
[2025-06-10] MEDS: iohexol 350 mg/mL 500 mL Btl (per mL) IV (12:38)
--- NOTE | 2025-06-10 12:56 | PC.OT ---
HOLD OT TREATMENT TODAY DUE TO TRANSFER TO ICU'; DECLINE IN STATUS
--- NOTE | 2025-06-10 14:22 | P.PN_ITS ---
Subjective 2 Subjective: Overnight patient has been hemodynamically stable and afebrile. Today morning around 4 AM while being on CPAP she started having acute difficulty in breathing. Started desaturating on room air hence was placed on 3 L. Examination patient was visibly out of breath, tachypneic and tachycardic. She was placed on CPAP. Urgent chest x-ray and D-dimer were checked. Vitals/I&O/Wt Last Vital Signs Temp 98.2 F 06/10/25 11:15 Pulse 106 H 06/10/25 11:15 Resp 19 H 06/10/25 11:15 BP 138/96 06/10/25 11:15 Pulse Ox 91 06/10/25 11:15 O2 Del Method Nasal Cannula 06/10/25 11:15 O2 Flow Rate 3 06/10/25 11:04 FiO2 21 06/07/25 20:50 06/09/25 06/10/25 06/10/25 22:59 06:59 14:59 Intake Total 500 / 510 Output Total 3252 / 4057 200 / 4257 Balance -2752 / -3547 -200 / -3747 Weight last 48 hrs Weight 116.12 kg Weight 115.1 kg Weight 119.975 kg Physical Exam 2 Narrative: General well-developed well-nourished morbidly obese female in no acute cardiopulmonary stress CV regular rate and rhythm Lungs bibasilar crackles heard incompletely cleared with deep breaths improved from yesterday Abdomen positive bowel tones soft obese nontender Calves 2+ bilateral pretibial edema and DALTON hose are in place Mood and affect normal Urinary Catheter Management: Romeo: Cath Placed During This Visit: yes Reason for Continuing Indwelling Catheter: Acute Urinary Retention or Obstruction Urinary Catheter Date of Insertion: 06/03/25 Urinary Catheter Time of Insertion: 18:38 Data 06/10/25 05:05 06/10/25 05:05 A&P Assessment and plan 1. Hypoxic respiratory failure: 2. Acute renal failure with oliguria: Romeo in place and continue diuretics. Serum bicarb 28 off bicarbonate replacement fluid patient is hard to diurese in part due to hypotension. Midodrine started yesterday but blood pressure still systolic 103. Will increase midodrine to 10 mg 3 times daily 3. Pneumonia: 4. Uremia: 5. Nonischemic cardiomyopathy: 6. Acute on chronic combined systolic and diastolic congestive heart failure: EF 25 to 35% based on prior nuclear images and echo. Continue home CPAP for sleep Repeat echocardiogram showed EF 30% and grade 2/4 diastolic dysfunction no pericardial effusion. Severe aortic valve calcification noted with moderate aortic valve stenosis and moderate mitral valve regurg 7. Mild aortic stenosis: 8. Sleep apnea treated with continuous positive airway pressure (CPAP): Resume home APAP on her ResMed 11 machine 9. Esophageal dysphagia: Esophagram shows esophageal spasm and moderate-sized hiatal hernia and esophagus is displaced will need to further image for possible goiter or mass. Will allow contrast from barium swallow to pass and plan on CT of the chest abdomen pelvis to include the neck on Sunday Patient also has a right kidney mass to be evaluated. She needs to pass her stool regarding barium swallow before proceeding with repeat imaging 10. Hypothyroidism: TSH was 9 so I raise the levothyroxine. Notably patient had possible goiter on chest x-ray based on displacement of esophagus on barium swallow. CT scan ordered for the morning. We are awaiting passage of barium because that had compromised images of the kidney on last CT scan 11. Acute on chronic renal insufficiency: 12. MGUS (monoclonal gammopathy of unknown significance): 13. Elevated d-dimer: Plan: Plan for the day: Post tunneled catheter placement on 06/09. Received first session of dialysis yesterday. Acute respiratory failure today morning. Chest x-ray concerning for fluid overload versus pneumonia. D-dimer elevated to 4.8. Patient did develop tachycardia and hypotension. Was placed on CPAP. Stat CTA PE ruled out but consistent with pneumonia. Stat echocardiogram ruled out tamponade though shows EF of 20% with global LV hypokinesia. Continue CPAP ventilation for now. Manage oxygen supplementation keeping saturation over 90%. Plan for repeat dialysis today. Check sputum culture, respiratory viral panel. Empirically start on IV vancomycin and Zosyn. If MRSA swab negative will discontinue vancomycin. Speech evaluation. Goal blood pressure less than 140/90 mmHg. Blood pressures have been soft. Patient is doing well on midodrine. For now we will continue. Will continue to hold off on antihypertensive. Aggressive pulmonary toilet. Pulmicort twice daily, ipratropium, Xopenex every 6 hours. Check EKG. Transfer to ICU. Full code Renal dialysis diet Protonix for PUD prophylaxis Heparin for DVT prophylaxis PDMP PDMP Reviewed: Not Reviewed Attestations 2 Medical Necessity Statement*: Requires further hospitalization for management of acute hypoxic respiratory failure in setting of pneumonia, congestive heart failure in a patient with acute on chronic kidney disease requiring hemodialysis Critical Care Time: The high probability of a clinically significant, sudden or life threatening deterioration of the patient's [pulmonary, cardiac, renal] system(s) required my full and direct attention, intervention and personal management. The critical care time is as shown. This time is in addition to time spent performing any reported procedures but includes the following: [x] Data and vital sign review and interpretation [x] Patient assessment, examination and intervention [x] Documentation [x] Medication orders and management Critical Care Time (min): 60 Coding Level of Care Code Critical Care >/= 30 minutes Critical care time (in minutes): 60 The high probability of a clinically significant, sudden or life threatening deterioration, as referenced in this documentation, required my full and direct attention, intervention and personal management. The critical care time shown is in addition to time spent performing any reported separately billable procedures and includes the following: [x] Data and vital sign review and interpretation [x ] Patient assessment, examination and intervention [x] Medication orders and management [x] Patient/Family updates as able [x] Care Coordination and Documentation. Diagnoses Hypoxic respiratory failure J96.91 Acute renal failure with oliguria N17.9; R34 Pneumonia J18.9 Uremia N19 Nonischemic cardiomyopathy I42.8 Acute on chronic combined systolic and diastolic congestive heart failure I50.43 Mild aortic stenosis I35.0 Sleep apnea treated with continuous positive airway pressure (CPAP) G47.30 Esophageal dysphagia R13.19 Hypothyroidism E03.9 Acute on chronic renal insufficiency N28.9; N18.9 MGUS (monoclonal gammopathy of unknown significance) D47.2 Elevated d-dimer R79.89
--- NOTE | 2025-06-10 15:13 | ECG_ITS ---
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 Measurements Intervals [place] Rate: 100 P: 79 ID: [id number] QRS: 97 QRSD: 139 T: 267 QT: 384 QTc: 496 Interpretive Statements SINUS TACHYCARDIA WITH OCCASIONAL VENTRICULAR PREMATURE COMPLEXES BORDERLINE RIGHT AXIS DEVIATION [QRS AXIS > 90] INTRAVENTRICULAR CONDUCTION DELAY [130+ ms QRS DURATION] ANTEROSEPTAL MYOCARDIAL INFARCTION , OF INDETERMINATE AGE [40+ ms Q WAVE IN V1-V4] Compared to ECG 06/03/2025 18:41:44 Ventricular premature complex(es) now present Intraventricular conduction delay now present Sinus rhythm no longer present Myocardial infarct finding still present Electronically Signed On 06-10-2025 23:40:34 [employer] by Rachel Kumar M.D. [email or web address]
--- NOTE | 2025-06-10 15:35 | PHA.VACGOAL ---
Vancomycin Goal - Goal Vancomycin Goal:: 15-20 mg/L Vancomycin Indication:: Pneumonia - Therapy Current therapy:: Pip/Tazo Day of therpy:: Day []of [] . Actual body weight (kg): 256 lb - Data Labs: WBC 10.50 10^3/uL (3.29-11.43) 06/10/25 05:05 RBC 2.87 10^6/uL (3.85-5.65) L 06/10/25 05:05 Hgb 10.20 g/dL (11.27-16.99) L 06/10/25 05:05 Hct 30.7 % (36-47) L 06/10/25 05:05 MCV 107.0 fl (85-98) H 06/10/25 05:05 MCH 35.5 pg (27-33) H 06/10/25 05:05 MCHC 33.2 g/dL (30-55) 06/10/25 05:05 RDW 18.0 % (12.1-15.1) H 06/10/25 05:05 Sodium 143 mmol/L (136-145) 06/10/25 05:05 Potassium 3.8 mmol/L (3.5-5.1) 06/10/25 05:05 Chloride 98 mmol/L (98-107) 06/10/25 05:05 Carbon Dioxide 26 mmol/L (22-29) 06/10/25 05:05 Anion Gap 22.8 (5-19) H 06/10/25 05:05 BUN 60 mg/dL (8-23) H 06/10/25 05:05 Creatinine 2.5 mg/dL (0.5-0.9) H 06/10/25 05:05 GFR Calculation Not Reportable 06/10/25 05:05 Last dialysis session:: N/A Treatment plan:: new consult Regimen:: LOADING DOSE OF 2000 MG X 1 SCHEDULED AFTER HD TODAY. PLAN TO PULSE DOSE WITH HD SCHEDULE. Follow up:: WILL OBTAIN A LEVEL WITH [facility] NEXT DAY OF HD
[2025-06-10 16:15] LABS: MRSA PCR OZH (swab) NOT DETECTED (Not Detecte)
[2025-06-10] MEDS: piperacillin-tazobactam 3.375 GM in sodium chloride 0.9% (plus) 50 ML IV ×2 (16:40→22:55)
[2025-06-10 16:51] LABS: Coronavirus 229E,HKU1,NL63,OC4 Not Detected (NOT DETECT); Parainfluenza Virus Type 1 Not Detected (NOT DETECT); Parainfluenza Virus Type 2 Not Detected (NOT DETECT); Parainfluenza Virus Type 3 Not Detected (NOT DETECT); Parainfluenza Virus Type 4 Not Detected (NOT DETECT); SARS-COV-2 Not Detected (NOT DETECT)
[2025-06-10] MEDS: HYDROcodone-acetaminophen 5-325 mg Tablet 1 TAB PO (20:26)
[2025-06-10] MEDS: fluticasone nasal spray 16gm Btl 2 SPRAY INTRANASAL (20:30)
--- NOTE | 2025-06-10 21:19 | PC.NURSE ---
received VO from Dr. Farnsworth to not give vanc due to neg mrsa swab
[2025-06-11] VITALS (19 sets, daily range): BP systolic 100–146; BP diastolic 75–99; PULSE 90–105; RESP 15–32; TEMP 36.4–36.7; O2SAT 89–96
[2025-06-11] MEDS: carbidopa-levodopa ER 50-200mg Tablet 1 EACH PO ×3 (05:22→20:21)
[2025-06-11] MEDS: FUROsemide 10 mg/mL SDV 10mL 80 MG IVP (05:26)
[2025-06-11 06:22] LABS: Hematocrit 31.2 % (36-47); Hemoglobin 10.20 g/dL (11.27-16.99); Mean Corpuscular HGB Conc 32.7 g/dL (30-55); Mean Corpuscular Hemoglobin 34.9 pg (27-33); Mean Corpuscular Volume 106.8 fl (85-98); Nucleated Red Blood Cells % 2.5 %; Platelet Count 236 10^3/cmm (157-399); Red Blood Count 2.92 10^6/uL (3.85-5.65); White Blood Count 13.20 10^3/uL (3.29-11.43)
[2025-06-11 06:50] LABS: Albumin Level 3.8 g/dL (3.5-5.2); Alkaline Phosphatase 159 U/L (35-105); Anion Gap 22.0 (5-19); Blood Urea Nitrogen 52 mg/dL (8-23); Calcium 9.6 mg/dL (8.5-10.5); Carbon Dioxide 26 mmol/L (22-29); Chloride 96 mmol/L (98-107); Creatinine Clr Calc Pharmacy 18.9338; Globulin 2.7 g/dL (1.3-4.6); Glucose 106 mg/dL (65-115); Osmolality Calculated 304 mOsm/kg (285-295); Potassium 4.0 mmol/L (3.5-5.1); Sodium 140 mmol/L (136-145); Total Protein 6.5 g/dL (6.6-8.7)
[2025-06-11 06:53] LABS: Magnesium 2.1 mg/dL (1.7-2.3)
[2025-06-11 07:02] LABS: Aspartate Amino Transferase 941 U/L (0-32)
[2025-06-11 07:30] LABS: Alanine Aminotransferase 76 U/L (0-33)
[2025-06-11] MEDS: piperacillin-tazobactam 3.375 GM in sodium chloride 0.9% (plus) 50 ML IV ×2 (08:34→19:33)
[2025-06-11] MEDS: methylPREDNISolone sod succ 40 mg/mL INJ IVP ×3 (08:38→23:41)
--- NOTE | 2025-06-11 09:04 | PM.PN ---
Subjective Subjective: Patient seen and examined. Less short of breath less edematous however still short of breath and edematous feels better after dialysis x 2 and is requesting further dialysis she still has a poor appetite and is anxious. Medications: Reviewed: Yes Medication Review Details: Current Medications Acetaminophen (Acetaminophen 325 Mg Tablet) 650 mg PO Q6H PRN PRN Reason: Mild/Mod Pain Or Temp >/= 101 Hydrocodone Bitart/Acetaminophen (Hydrocodone-Acetaminophen 5-325 Mg Tablet) 1 tab PO Q6H PRN PRN Reason: PAIN Last Admin: 06/10/25 20:26 Dose: 1 tab Albuterol Sulfate (Albuterol 2.5 Mg/3 Ml Neb) 2.5 mg INHALATION QID.RESPIRATORY PRN PRN Reason: WHEEZING Artificial Tears (Artificial Tears Op Soln 15 Ml Btl) 1 drop EYE-BOTH Q4H PRN PRN Reason: DRY EYE(S) Atorvastatin Calcium (Atorvastatin 40 Mg Tablet) 40 mg PO DAILY MAL Last Admin: 06/11/25 05:21 Dose: 40 mg Budesonide (Budesonide 0.5 Mg/2 Ml Neb) 0.5 mg INHALATION BID.RESPIRATORY MAL Last Admin: 06/11/25 08:12 Dose: 0.5 mg Carbidopa/Levodopa (Carbidopa-Levodopa Er 50-200mg Tablet) 1 each PO TID MAL Last Admin: 06/11/25 05:22 Dose: 1 each Cetirizine HCl (Cetirizine 10 Mg Tablet) 10 mg PO DAILY MAL Last Admin: 06/11/25 05:21 Dose: 10 mg Fluconazole (Fluconazole 100 Mg Tablet) 100 mg PO DAILY MAL Stop: 06/12/25 20:59 Last Admin: 06/11/25 05:22 Dose: 100 mg Fluticasone Propionate (Fluticasone Nasal [place] 16gm Btl) 2 spray INTRANASAL BEDTIME MAL Last Admin: 06/10/25 20:30 Dose: 2 spray Furosemide (Furosemide 40 Mg Tablet) 40 mg PO BID@08,16 MAL Last Admin: 06/11/25 08:39 Dose: 40 mg Gabapentin (Gabapentin 300 Mg Capsule) 300 mg PO BEDTIME MAL Last Admin: 06/10/25 20:26 Dose: 300 mg Heparin Sodium (Porcine) (Heparin 5,000 Unit/Ml Inj 1 Ml) 5,000 unit SUBCUT Q12H MAL Last Admin: 06/10/25 19:51 Dose: 5,000 unit Sodium Chloride (Sodium Chloride 0.9%) 1,000 mls @ 0 mls/hr IV .Q0M PRN PRN Reason: hypotension or symptomatic Albumin Human (Albumin) 12.5 gm in 50 mls @ 60 mls/hr IV PRN PRN PRN Reason: Hypotension and/or symptomatic Piperacillin Sod/Tazobactam (Sod 3.375 gm/ Sodium Chloride) 50 mls @ 12.5 mls/hr IV Q8H [facility] Last Admin: 06/11/25 08:34 Dose: 12.5 mls/hr Ipratropium [place] (Ipratropium 0.5 Mg/2.5 Ml Neb) 0.5 mg INHALATION Q6H.RESP [facility] Last Admin: 06/11/25 08:12 Dose: 0.5 mg Levalbuterol HCl (Levalbuterol 0.63 Mg/3 Ml Neb) 0.63 mg INHALATION Q6H.RESP [facility] Last Admin: 06/11/25 08:12 Dose: 0.63 mg Levothyroxine Sodium (Levothyroxine 200 Mcg Tablet) 200 mcg PO DAILY [facility] Last Admin: 06/11/25 05:22 Dose: 200 mcg Methylprednisolone Sodium Succinate (Methylprednisolone Sod Succ 40 Mg/Ml Inj) 40 mg IVP Q8H [facility] Last Admin: 06/11/25 08:38 Dose: 40 mg Midodrine (Midodrine 5 Mg Tablet) 5 mg PO TID [facility] Last Admin: 06/11/25 05:21 Dose: 5 mg Montelukast Sodium (Montelukast Sodium 10 Mg Tablet) 10 mg PO BEDTIME [facility] Last Admin: 06/10/25 20:25 Dose: 10 mg Ondansetron HCl (Ondansetron 2 Mg/Ml Sdv 2 Ml) 4 mg IVP Q8H PRN PRN Reason: vomiting, or N/V if npo Pantoprazole Sodium (Pantoprazole Dr 40 Mg Tablet) 40 mg PO DAILY [facility] Last Admin: 06/11/25 05:22 Dose: 40 mg Zolpidem Tartrate (Zolpidem 5 Mg Tablet) 2.5 mg PO BEDTIME PRN PRN Reason: INSOMNIA Last Admin: 06/10/25 20:29 Dose: 2.5 mg Vitals/I&O/Wt Last Vital Signs Temp 99.5 F 06/10/25 20:05 Pulse 92 06/11/25 08:00 Resp 18 06/11/25 08:00 BP 107/75 06/10/25 21:30 Pulse Ox 95 06/11/25 08:00 O2 Del Method CPAP 06/11/25 08:00 O2 Flow Rate 3 06/11/25 08:00 FiO2 21 06/07/25 20:50 06/10/25 06/11/25 06/11/25 22:59 06:59 14:59 Intake Total 790 / 790 50 / 840 Output Total 3000 / 3000 525 / 3525 Balance -2210 / -2210 -475 / -2685 Weight last 48 hrs Weight 106.5 kg Weight 113 kg Weight 116.12 kg Weight 115.1 kg Physical Exam Narrative: Obese lady in bed using high flow oxygen more comfortable than yesterday. Vital signs noted. HEENT normocephalic/atraumatic. Neck obese Lungs crackles on dull bases. Heart positive S1-S2. Abdomen is soft positive bowel sounds. Extremities 1+ edema bilaterally. Neuro awake alert and oriented interactive Urinary Catheter Management: Romeo: Cath Placed During This Visit: yes Reason for Continuing Indwelling Catheter: Acute Urinary Retention or Obstruction Urinary Catheter Date of Insertion: 06/03/25 Urinary Catheter Time of Insertion: 18:38 Data 06/11/25 05:57 06/11/25 05:57 A&P Assessment and plan 1. 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 Patient developed acute on chronic renal failure baseline creatinine 1.5 mg/dL in February 2025. She follows with [place] [facility]. Patient has known positive serum protein electrophoresis. Patient is now here with ANDER felt to be either ATN versus cardiorenal syndrome. Patient initiated dialysis on June 09, 2025. Patient feeling better after dialysis x 2. Patient CT scan yesterday revealing pneumonia and volume overload. Continue renal dosed antibiotics. Will repeat dialysis today for ultrafiltration. Treat obstructive sleep apnea. Combined systolic and diastolic dysfunction as per cardiology. Would consider adding Entresto or an DANNY or ARB. Given low EF I am okay with systolic blood pressure 100 = Patient has known MGUS and a very high free lambda. Would consider renal biopsy when stable Please ask cardiology if they feel that patient's echo can be consistent with cardiac amyloid. -Patient was seen and examined with the aid of a nurse using audiovisual equipment. This was a telehealth visit the patient consented to telehealth and to dialysis. Plan: See above PDMP PDMP Reviewed: Not Reviewed Attestations Medical Necessity Statement*: Volume overload, acute on chronic renal failure Time Spent in Patient Care: 16 - 35 minutes (>than 50% of time spent in counselling and/or direct pt care on unit). Coding Level of Care Code Acute Code for Chg Fwd Diagnoses Acute renal failure with oliguria N17.9; R34
[2025-06-11] MEDS: heparin 5,000 unit/mL INJ 1 mL 5000 UNIT SUBCUT ×2 (09:45→20:20)
--- NOTE | 2025-06-11 10:24 | P.PN_ITS ---
Subjective 2 Subjective: Tunneled dialysis catheter functional Vitals/I&O/Wt Last Vital Signs Temp 99.5 F 06/10/25 20:05 Pulse 92 06/11/25 08:00 Resp 18 06/11/25 08:00 BP 107/75 06/10/25 21:30 Pulse Ox 95 06/11/25 08:00 O2 Del Method CPAP 06/11/25 08:00 O2 Flow Rate 3 06/11/25 08:00 FiO2 21 06/07/25 20:50 06/10/25 06/11/25 06/11/25 22:59 06:59 14:59 Intake Total 790 / 790 50 / 840 Output Total 3000 / 3000 525 / 3525 Balance -2210 / -2210 -475 / -2685 Weight last 48 hrs Weight 234 lb 12.677 oz Weight 249 lb 1.957 oz Weight 256 lb Weight 253 lb 12.033 oz Physical Exam 2 Narrative: Chest: Tunneled dialysis catheter functional Urinary Catheter Management: Romeo: Cath Placed During This Visit: yes Reason for Continuing Indwelling Catheter: Acute Urinary Retention or Obstruction Urinary Catheter Date of Insertion: 06/03/25 Urinary Catheter Time of Insertion: 18:38 Data 06/14/25 04:50 06/14/25 04:50 A&P Assessment and plan 1. CKD (chronic kidney disease): Plan: 79-year-old female with a tunneled dialysis catheter that is functional. Rest of care per hospitalist. PDMP PDMP Reviewed: Not Reviewed Attestations 2 Medical Necessity Statement*: N/A Coding Level of Care Code Acute Code for [facility] Fwd Diagnoses CKD (chronic kidney disease) N18.9
[2025-06-11 12:39] LABS: DNA AB (DS) CRITHIDIA,IFA NEGATIVE (NEGATIVE)
[2025-06-11] MEDS: heparin, porcine 1,000 unit/mL INJ 10 mL 1000 UNIT IV (12:50)
--- NOTE | 2025-06-11 13:19 | PC.HD ---
Dialysis orders written for 2 hours with 2.0L fluid removal via SUF. Per phone orders, attempt to remove 2.5L over 2.5 hours if tolerated.
--- NOTE | 2025-06-11 13:40 | PC.NURSE ---
Assumed care at 1330.
--- NOTE | 2025-06-11 14:02 | PC.NURSE ---
Report given to DEIRDRE Page. HD in progress.
--- NOTE | 2025-06-11 18:20 | P.PN_ITS ---
Subjective 2 Subjective: No acute events overnight. Today morning patient seen on CPAP. States she is feeling better than yesterday. Denies any nausea, vomiting, headache. Underwent second session of dialysis yesterday. Vitals/I&O/Wt Last Vital Signs Temp 97.5 F L 06/11/25 15:35 Pulse 99 06/11/25 15:35 Resp 15 06/11/25 15:35 BP 140/89 06/11/25 15:35 Pulse Ox 96 06/11/25 13:11 O2 Del Method Nasal Cannula 06/11/25 13:11 O2 Flow Rate 3 06/11/25 13:11 FiO2 21 06/07/25 20:50 06/11/25 06/11/25 06/11/25 06:59 14:59 22:59 Intake Total 50 / 840 450 / 450 500 / 950 Output Total 525 / 3525 3000 / 3000 Balance -475 / -2685 450 / 450 -2500 / -2050 Weight last 48 hrs Weight 106 kg Weight 106.5 kg Weight 113 kg Weight 116.12 kg Weight 115.1 kg Physical Exam 2 Narrative: General well-developed well-nourished morbidly obese female in no acute cardiopulmonary stress CV regular rate and rhythm Lungs bibasilar crackles heard incompletely cleared with deep breaths improved from yesterday, coarse rhonchi present in right middle and lower zone Abdomen positive bowel tones soft obese nontender Calves 2+ bilateral pretibial edema and DALTON hose are in place Mood and affect normal Urinary Catheter Management: Romeo: Cath Placed During This Visit: yes Reason for Continuing Indwelling Catheter: Acute Urinary Retention or Obstruction Urinary Catheter Date of Insertion: 06/03/25 Urinary Catheter Time of Insertion: 18:38 Data 06/11/25 05:57 06/11/25 05:57 A&P Assessment and plan 1. Hypoxic respiratory failure: 2. Acute renal failure with oliguria: Romeo in place and continue diuretics. Serum bicarb 28 off bicarbonate replacement fluid patient is hard to diurese in part due to hypotension. Midodrine started yesterday but blood pressure still systolic 103. Will increase midodrine to 10 mg 3 times daily 3. Pneumonia of both lower lobes due to infectious organism: 4. Uremia: 5. Nonischemic cardiomyopathy: 6. Acute on chronic combined systolic and diastolic congestive heart failure: EF 25 to 35% based on prior nuclear images and echo. Continue home CPAP for sleep Repeat echocardiogram showed EF 30% and grade 2/4 diastolic dysfunction no pericardial effusion. Severe aortic valve calcification noted with moderate aortic valve stenosis and moderate mitral valve regurg 7. Mild aortic stenosis: 8. Sleep apnea treated with continuous positive airway pressure (CPAP): Resume home APAP on her ResMed 11 machine 9. Esophageal dysphagia: Esophagram shows esophageal spasm and moderate-sized hiatal hernia and esophagus is displaced will need to further image for possible goiter or mass. Will allow contrast from barium swallow to pass and plan on CT of the chest abdomen pelvis to include the neck on Sunday Patient also has a right kidney mass to be evaluated. She needs to pass her stool regarding barium swallow before proceeding with repeat imaging 10. Hypothyroidism: TSH was 9 so I raise the levothyroxine. Notably patient had possible goiter on chest x-ray based on displacement of esophagus on barium swallow. CT scan ordered for the morning. We are awaiting passage of barium because that had compromised images of the kidney on last CT scan 11. Acute on chronic renal insufficiency: 12. MGUS (monoclonal gammopathy of unknown significance): 13. Elevated d-dimer: 14. Rhinovirus infection: Plan: Plan for the day: Post tunneled catheter placement on 06/09. Respiratory failure in setting of CHF exacerbation, COPD and sleep apnea exacerbation due to rhinovirus bronchitis and multifocal pneumonia. Appreciate CTA done on 06/10. Continue Pulmicort twice daily, DuoNeb every 6 hour. Solu-Medrol 40 mg Q6 hourly. Appreciate echocardiogram showing EF of 20% with global LV hypokinesia. Patient states she has been on LifeVest in the past though she could not tolerated. Oxygen supplementation keeping saturation over 90%. Will try to wean off CPAP for now. CPAP only when resting or sleeping. Further dialysis as per nephrology team. Goal blood pressure less than 140/90 mmHg. Blood pressure stable. Continue with midodrine 5 mg 3 times daily for now. MRSA swab negative. Continue with Zosyn. Discontinue vancomycin. Sputum culture not collected. Change Lasix to 40 mg oral twice daily. Patient already on dialysis currently. Appreciate speech evaluation. Diet modified as per speech evaluation. Continue care at ICU for now. Full code Renal dialysis diet Protonix for PUD prophylaxis Heparin for DVT prophylaxis PDMP PDMP Reviewed: Not Reviewed Attestations 2 Medical Necessity Statement*: Requires further hospitalization for management of ANDER on CKD requiring dialysis, respiratory failure in setting of multifocal pneumonia, rhinovirus bronchitis, congestive heart failure with a EF of 20% Diagnoses Hypoxic respiratory failure J96.91 Acute renal failure with oliguria N17.9; R34 Pneumonia of both lower lobes due to infectious organism J18.9 Pneumonia type: due to unspecified organism Laterality: bilateral Lung location: lower lobe of lung Uremia N19 Nonischemic cardiomyopathy I42.8 Acute on chronic combined systolic and diastolic congestive heart failure I50.43 Mild aortic stenosis I35.0 Sleep apnea treated with continuous positive airway pressure (CPAP) G47.30 Esophageal dysphagia R13.19 Hypothyroidism E03.9 Acute on chronic renal insufficiency N28.9; N18.9 MGUS (monoclonal gammopathy of unknown significance) D47.2 Elevated d-dimer R79.89 Rhinovirus infection B34.8
[2025-06-11] MEDS: HYDROcodone-acetaminophen 5-325 mg Tablet 1 TAB PO (20:21)
[2025-06-11] MEDS: fluticasone nasal spray 16gm Btl 2 SPRAY INTRANASAL (20:22)
[2025-06-12] VITALS (24 sets, daily range): BP systolic 111–166; BP diastolic 70–123; PULSE 97–108; RESP 11–28; TEMP 36.5–37.1; O2SAT 78–97
[2025-06-12] MEDS: HYDROcodone-acetaminophen 5-325 mg Tablet 1 TAB PO ×2 (02:27→21:24)
[2025-06-12] MEDS: carbidopa-levodopa ER 50-200mg Tablet 1 EACH PO ×3 (05:28→20:31)
[2025-06-12 06:40] LABS: Albumin Level 4.1 g/dL (3.5-5.2); Alkaline Phosphatase 328 U/L (35-105); Anion Gap 25.4 (5-19); Blood Urea Nitrogen 68 mg/dL (8-23); Calcium 9.3 mg/dL (8.5-10.5); Carbon Dioxide 23 mmol/L (22-29); Chloride 94 mmol/L (98-107); Creatinine Clr Calc Pharmacy 16.4276; Globulin 2.4 g/dL (1.3-4.6); Glucose 141 mg/dL (65-115); Osmolality Calculated 308 mOsm/kg (285-295); Potassium 4.4 mmol/L (3.5-5.1); Sodium 138 mmol/L (136-145); Total Protein 6.5 g/dL (6.6-8.7)
[2025-06-12 06:53] LABS: Hematocrit 31.5 % (36-47); Hemoglobin 10.40 g/dL (11.27-16.99); Mean Corpuscular HGB Conc 33.0 g/dL (30-55); Mean Corpuscular Hemoglobin 35.3 pg (27-33); Mean Corpuscular Volume 106.8 fl (85-98); Nucleated Red Blood Cells % 3.4 %; Platelet Count 250 10^3/cmm (157-399); Red Blood Count 2.95 10^6/uL (3.85-5.65); White Blood Count 12.14 10^3/uL (3.29-11.43)
[2025-06-12 06:56] LABS: Aspartate Amino Transferase 1469 U/L (0-32)
[2025-06-12 06:58] LABS: Alanine Aminotransferase 75 U/L (0-33)
--- NOTE | 2025-06-12 07:17 | PC.NURSE ---
contacted Dr. Farnsworth to let him know patient has been experiencing some confusion vitals wnl will reorient and monitor as directed.
--- NOTE | 2025-06-12 07:27 | PM.PN ---
Subjective Subjective: Patient seen and examined. She is confused. She received [place] and Ambien. She has decreased edema still remains on CPAP. Breathing per nurses has improved. Rest review of systems difficult to get as she is confused Medications: Reviewed: Yes Medication Review Details: Current Medications Acetaminophen (Acetaminophen 325 Mg Tablet) 650 mg PO Q6H PRN PRN Reason: Mild/Mod Pain Or Temp >/= 101 Hydrocodone Bitart/Acetaminophen (Hydrocodone-Acetaminophen 5-325 Mg Tablet) 1 tab PO Q6H PRN PRN Reason: PAIN Last Admin: 06/12/25 02:27 Dose: 1 tab Albuterol Sulfate (Albuterol 2.5 Mg/3 Ml Neb) 2.5 mg INHALATION QID.RESPIRATORY PRN PRN Reason: WHEEZING Artificial Tears (Artificial Tears Op Soln 15 Ml Btl) 1 drop EYE-BOTH Q4H PRN PRN Reason: DRY EYE(S) Atorvastatin Calcium (Atorvastatin 40 Mg Tablet) 40 mg PO DAILY MAL Last Admin: 06/12/25 05:28 Dose: 40 mg Budesonide (Budesonide 0.5 Mg/2 Ml Neb) 0.5 mg INHALATION BID.RESPIRATORY MAL Last Admin: 06/11/25 19:50 Dose: 0.5 mg Carbidopa/Levodopa (Carbidopa-Levodopa Er 50-200mg Tablet) 1 each PO TID MAL Last Admin: 06/12/25 05:28 Dose: 1 each Cetirizine HCl (Cetirizine 10 Mg Tablet) 10 mg PO DAILY MAL Last Admin: 06/12/25 05:27 Dose: 10 mg Docusate Sodium (Docusate Sodium 100 Mg Capsule) 100 mg PO ONCE ONE Stop: 06/12/25 07:31 Fluconazole (Fluconazole 100 Mg Tablet) 100 mg PO DAILY MAL Stop: 06/12/25 20:59 Last Admin: 06/12/25 05:27 Dose: 100 mg Fluticasone Propionate (Fluticasone Nasal [place] 16gm Btl) 2 spray INTRANASAL BEDTIME MAL Last Admin: 06/11/25 20:22 Dose: 2 spray Furosemide (Furosemide 40 Mg Tablet) 40 mg PO BID@08,16 MAL Last Admin: 06/11/25 15:40 Dose: 40 mg Gabapentin (Gabapentin 300 Mg Capsule) 300 mg PO BEDTIME MAL Last Admin: 06/11/25 20:21 Dose: 300 mg Heparin Sodium (Porcine) (Heparin 5,000 Unit/Ml Inj 1 Ml) 5,000 unit SUBCUT Q12H [facility] Last Admin: 06/11/25 20:20 Dose: 5,000 unit Sodium Chloride (Sodium Chloride 0.9%) 1,000 mls @ 0 mls/hr IV .Q0M PRN PRN Reason: hypotension or symptomatic Albumin Human (Albumin) 12.5 gm in 50 mls @ 60 mls/hr IV PRN PRN PRN Reason: Hypotension and/or symptomatic Piperacillin Sod/Tazobactam (Sod 3.375 gm/ Sodium Chloride) 50 mls @ 12.5 mls/hr IV Q12H [facility] Last Infusion: 06/11/25 23:30 Dose: Infused Ipratropium [place] (Ipratropium 0.5 Mg/2.5 Ml Neb) 0.5 mg INHALATION Q6H.RESP [facility] Last Admin: 06/12/25 02:00 Dose: 0.5 mg Levalbuterol HCl (Levalbuterol 0.63 Mg/3 Ml Neb) 0.63 mg INHALATION Q6H.RESP [facility] Last Admin: 06/12/25 02:00 Dose: 0.63 mg Levothyroxine Sodium (Levothyroxine 200 Mcg Tablet) 200 mcg PO DAILY [facility] Last Admin: 06/12/25 05:27 Dose: 200 mcg Methylprednisolone Sodium Succinate (Methylprednisolone Sod Succ 40 Mg/Ml Inj) 40 mg IVP Q8H [facility] Last Admin: 06/11/25 23:41 Dose: 40 mg Midodrine (Midodrine 5 Mg Tablet) 5 mg PO TID [facility] Last Admin: 06/12/25 05:57 Dose: Not Given Montelukast Sodium (Montelukast Sodium 10 Mg Tablet) 10 mg PO BEDTIME [facility] Last Admin: 06/11/25 20:21 Dose: 10 mg Ondansetron HCl (Ondansetron 2 Mg/Ml Sdv 2 Ml) 4 mg IVP Q8H PRN PRN Reason: vomiting, or N/V if npo Pantoprazole Sodium (Pantoprazole Dr 40 Mg Tablet) 40 mg PO DAILY [facility] Last Admin: 06/12/25 05:27 Dose: 40 mg Zolpidem Tartrate (Zolpidem 5 Mg Tablet) 2.5 mg PO BEDTIME PRN PRN Reason: INSOMNIA Last Admin: 06/11/25 20:20 Dose: 2.5 mg Vitals/I&O/Wt Last Vital Signs Temp 97.5 F L 06/11/25 15:35 Pulse 97 06/12/25 05:58 Resp 20 H 06/12/25 02:02 BP 155/99 06/12/25 00:00 Pulse Ox 94 06/12/25 02:02 O2 Del Method Nasal Cannula 06/11/25 18:38 O2 Flow Rate 2 06/12/25 02:02 FiO2 21 06/07/25 20:50 06/11/25 06/12/25 06/12/25 22:59 06:59 14:59 Intake Total 858 / 1308 600 / 1908 Output Total 3100 / 3100 Balance -2242 / -1792 600 / -1192 Weight last 48 hrs Weight 105 kg Weight 106 kg Weight 106.5 kg Weight 113 kg Physical Exam Narrative: Obese lady in bed using CPAP,, she appears comfortable in bed. Vital signs noted. HEENT normocephalic/atraumatic. Neck obese Lungs air movement improving, decreasing dull bases. Heart positive S1-S2. Abdomen is soft positive bowel sounds. Extremities 1+ edema bilaterally. Neuro awake alert and oriented x 1+. She is interactive and follows simple commands. She is confused Urinary Catheter Management: Romeo: Cath Placed During This Visit: yes Reason for Continuing Indwelling Catheter: Acute Urinary Retention or Obstruction Urinary Catheter Date of Insertion: 06/03/25 Urinary Catheter Time of Insertion: 18:38 Data 06/12/25 05:30 06/12/25 05:30 A&P Assessment and plan 1. 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 Patient developed acute on chronic renal failure baseline creatinine 1.5 mg/dL in February 2025. She follows with [place] [facility]. Patient has known positive serum protein electrophoresis. Patient is now here with ANDER felt to be either ATN versus cardiorenal syndrome. Patient initiated dialysis on June 09, 2025. Patient had dialysis x 2 and ultrafiltration yesterday. The plan was to give her a day off of dialysis. However as she is oliguric and confused will dialyze her today Treat obstructive sleep apnea. Combined systolic and diastolic dysfunction as per cardiology. Would consider adding Entresto or an DANNY or ARB. Given low EF I am okay with systolic blood pressure 100 Mild leukocytosis monitor Patient has increased AST now has gone from 27-14 69 over the last 3 days alk phos has risen to 328 albumin is normal Last week TSH 1.12 Check PTH = Patient has known MGUS and a very high free lambda. Would consider renal biopsy when stable Please ask cardiology if they feel that patient's echo can be consistent with cardiac amyloid. -Patient was seen and examined with the aid of a nurse using audiovisual equipment. This was a telehealth visit the patient consented to telehealth and to dialysis. Plan: See above PDMP PDMP Reviewed: Not Reviewed Attestations Medical Necessity Statement*: Acute on chronic renal failure, altered mental status, respiratory distress Time Spent in Patient Care: 16 - 35 minutes (>than 50% of time spent in counselling and/or direct pt care on unit). Coding Level of Care Code Acute Code for Chg Fwd Diagnoses Acute renal failure with oliguria N17.9; R34
--- NOTE | 2025-06-12 08:11 | US_ITS ---
WS: [id number] RIGHT UPPER QUADRANT ULTRASOUND HISTORY: transaminitis COMPARISON: Ultrasound gallbladder 03/03/2019, CT 06/10/2025 Liver: 16.1 cm in length. Normal size liver and echogenicity. No bile duct dilatation or mass. Portal Vein: Portal vein appears patent. Abnormal flow in the portal vein. This is probably in part due to patient's body habitus. Portal vein was patent on 06/10/2025. Gallbladder: Normally distended gallbladder with no stones or wall thickening. CBD: 0.3 cm Pancreas: Not visualized. Right kidney: 9.3 cm in length. Normal size and echogenicity. No hydronephrosis or mass. Aorta and IVC: Unremarkable abdominal aorta and IVC. No ascites. US/US liver [id number] IMPRESSION: 1. Normal gallbladder. 2. Abnormal flow in the portal vein. Loss of the normal smooth undulating wave form. There is still some flow present in the portal vein. No thrombus identifi ed. The waveform is abnormal. There is no reversal of the normal undulating pat tern is not present. Some of these changes may be due to patient's body habitus and limitations of the ultrasound evaluation. The portal vein was patent with no thrombus on the CT of 06/10/2025. 3. No ascites. 4. No intrahepatic duct dilatation.
[2025-06-12 08:53] LABS: ABG PCO2 34.0 mmHg (35-45); ABG PH Result 7.46 (7.35-7.45); Alveolar-Arterial Oxygen Gradi 11.9 mmHg (5-10); Arterial Blood Gas Hematocrit 32.1 % (37-47); Blood Gas Allen Test Pos; Blood Gas LPM 2.0 %; Blood Gas Operator Identificat CAK; Blood Gas Sample Site Brachial, left; Blood Gas Sample Type Arterial; Carboxyhemoglobin 0.5 %THgb (0.4-20.1); Glucose Level-ABG 151.0 mg/dL (70-115); HCO3 ABG 23.9 mmol/L (22-26); Ionized Calcium Level - ABG 1.1 mmol/L (1.1-1.4); Methemoglobin 0.0 % (0.4-1.5); Oxygen Saturation ABG 93.8; PO2 ABG 63.3 mmHg (80.0-100.0); PO2 FiO2 Ratio Arterial Blood 226; Potassium Level - ABG 4.7 mmol/L (3.5-5.0); Sodium Level - ABG 138.0 mmol/L (131-143)
[2025-06-12] MEDS: piperacillin-tazobactam 3.375 GM in sodium chloride 0.9% (plus) 50 ML IV ×2 (09:04→19:04)
[2025-06-12] MEDS: methylPREDNISolone sod succ 40 mg/mL INJ IVP ×2 (09:04→16:36)
[2025-06-12] MEDS: heparin 5,000 unit/mL INJ 1 mL 5000 UNIT SUBCUT ×2 (09:04→20:32)
[2025-06-12] MEDS: heparin, porcine 1,000 unit/mL INJ 10 mL 1000 UNIT IV (10:00)
--- NOTE | 2025-06-12 10:14 | PC.HD ---
Upon HD catheter dressing change, catheter insertion site was noted to be slightly reddened. No pus/exudate noted. Educated patient and spouse that if the dressing becomes soiled or if she experiences pain or discomfort to notify either this RN or primary RN immediately. Pen [employer] Machine Operator notified.
--- NOTE | 2025-06-12 11:00 | PC.SOCIAL ---
IMM Updated Updated pt on IMM. No questions voiced. Provided pt a copy. Initialed, dated, & timed a copy & placed in chart.
--- NOTE | 2025-06-12 11:55 | P.PN_ITS ---
Subjective 2 Subjective: Tunnel dialysis catheter working Vitals/I&O/Wt Last Vital Signs Temp 97.7 F 06/12/25 10:12 Pulse 103 H 06/12/25 10:12 Resp 15 06/12/25 10:12 BP 155/104 06/12/25 10:12 Pulse Ox 94 06/12/25 08:00 O2 Del Method Nasal Cannula 06/12/25 08:00 O2 Flow Rate 2 06/12/25 08:00 FiO2 21 06/07/25 20:50 06/11/25 06/12/25 06/12/25 22:59 06:59 14:59 Intake Total 858 / 1308 600 / 1908 50 / 50 Output Total 3100 / 3100 Balance -2242 / -1792 600 / -1192 50 / 50 Weight last 48 hrs Weight 231 lb 7.766 oz Weight 233 lb 11.04 oz Weight 234 lb 12.677 oz Weight 249 lb 1.957 oz Physical Exam 2 Narrative: Chest: Dialysis catheter in place. Functional. Urinary Catheter Management: Romeo: Cath Placed During This Visit: yes Reason for Continuing Indwelling Catheter: Acute Urinary Retention or Obstruction Urinary Catheter Date of Insertion: 06/03/25 Urinary Catheter Time of Insertion: 18:38 Data 06/14/25 04:50 06/14/25 04:50 A&P Assessment and plan 1. CKD (chronic kidney disease): Plan: 79-year-old female who presents in renal failure. Performed a tunneled dialysis catheter insertion. Catheter is functional. Rest of care per hospitalist PDMP PDMP Reviewed: Not Reviewed Attestations 2 Medical Necessity Statement*: N/A Coding Level of Care Code 56557 Diagnoses CKD (chronic kidney disease) N18.9
--- NOTE | 2025-06-12 14:35 | P.PN_ITS ---
Subjective 2 Subjective: No acute events overnight. Patient laying comfortably in bed. On examination was sleeping but wakes up to verbal stimulus. Upon entering of the room patient was in wide-complex tachycardia with heart rate running in 130s, but during conversation heart rate came down to 80 sinus rhythm. Patient saturating well on 3 L. Denies any nausea, vomiting. Vitals/I&O/Wt Last Vital Signs Temp 98.1 F 06/12/25 13:55 Pulse 105 H 06/12/25 13:55 Resp 15 06/12/25 13:55 BP 125/95 06/12/25 13:55 Pulse Ox 94 06/12/25 13:01 O2 Del Method Nasal Cannula 06/12/25 13:01 O2 Flow Rate 2 06/12/25 13:01 FiO2 21 06/07/25 20:50 06/11/25 06/12/25 06/12/25 22:59 06:59 14:59 Intake Total 858 / 1308 600 / 1908 670 / 670 Output Total 3100 / 3100 2500 / 2500 Balance -2242 / -1792 600 / -1192 -1830 / -1830 Weight last 48 hrs Weight 105 kg Weight 105 kg Weight 106 kg Weight 106.5 kg Weight 113 kg Physical Exam 2 Narrative: General: No acute distress, AO x3, chronically sick appearing, on CPAP nasal pillows HEENT: PERRLA, pupils bilaterally equal and reactive Chest: Bilateral bronchial breath sounds lower lung raymond, decreased air entry all over, fine crackles in the right chest CVS: S1-S2 regular, no murmurs, no tachycardia, no gallops, no rubs Abdomen: Soft, nontender, no organomegaly, bowel sounds present Neuro: No focal deficits, no facial deformity, AO x3, power 5/5 in all limbs Urinary Catheter Management: Romeo: Cath Placed During This Visit: yes Reason for Continuing Indwelling Catheter: Acute Urinary Retention or Obstruction Urinary Catheter Date of Insertion: 06/03/25 Urinary Catheter Time of Insertion: 18:38 Data 06/13/25 03:30 06/13/25 03:30 A&P Assessment and plan 1. Hypoxic respiratory failure: 2. Acute renal failure with oliguria: Romeo in place and continue diuretics. Serum bicarb 28 off bicarbonate replacement fluid patient is hard to diurese in part due to hypotension. Midodrine started yesterday but blood pressure still systolic 103. Will increase midodrine to 10 mg 3 times daily 3. Pneumonia of both lower lobes due to infectious organism: 4. Wide-complex tachycardia: 5. Uremia: 6. Nonischemic cardiomyopathy: 7. Acute on chronic combined systolic and diastolic congestive heart failure: EF 25 to 35% based on prior nuclear images and echo. Continue home CPAP for sleep Repeat echocardiogram showed EF 30% and grade 2/4 diastolic dysfunction no pericardial effusion. Severe aortic valve calcification noted with moderate aortic valve stenosis and moderate mitral valve regurg 8. Mild aortic stenosis: 9. Sleep apnea treated with continuous positive airway pressure (CPAP): Resume home APAP on her ResMed 11 machine 10. Esophageal dysphagia: Esophagram shows esophageal spasm and moderate-sized hiatal hernia and esophagus is displaced will need to further image for possible goiter or mass. Will allow contrast from barium swallow to pass and plan on CT of the chest abdomen pelvis to include the neck on Sunday Patient also has a right kidney mass to be evaluated. She needs to pass her stool regarding barium swallow before proceeding with repeat imaging 11. Hypothyroidism: TSH was 9 so I raise the levothyroxine. Notably patient had possible goiter on chest x-ray based on displacement of esophagus on barium swallow. CT scan ordered for the morning. We are awaiting passage of barium because that had compromised images of the kidney on last CT scan 12. Acute on chronic renal insufficiency: 13. Elevated d-dimer: 14. Rhinovirus infection: 15. MGUS (monoclonal gammopathy of unknown significance): Plan: Plan for the day: Oxygen supplementation keeping saturation over 90%. CPAP overnight. Chest x-ray. Continue with Pulmicort twice daily, DuoNeb every 6 hour. Switch to prednisone 40 mg oral daily. Sputum culture pending. Blood cultures so far negative. Blood pressures borderline again today. Will change midodrine back to 3 times daily. Hold off on bisoprolol. Goal blood pressure less than 140/90 mmHg with mean over 65. Patient refused metoprolol yesterday given concerns for COPD exacerbation in the past. Episodes of wide-complex tachycardia. Given EF of 20% cannot rule out nonsustained V. tach. Monitor electrolytes. Start on amiodarone drip after 150 mg bolus. Appreciate liver ultrasound. Transaminitis most likely in setting of enterovirus infection. Continue to monitor. Holding off on statins. Appreciate ammonia levels. Continue with lactulose. Watch for diarrhea. Appreciate diet as per speech evaluation. Out of bed to chair. Aggressive pulmonary toilet with I-S. Continue with IV Zosyn to finish a 5-day course. Appreciate nephrology recommendations. Patient has had 3 days of dialysis. Overall around 8 L negative. Goals of care discussion: Had detailed goals of care discussion with patient and daughter at bedside. All the questions were answered. Guarded prognosis. Continue care at ICU for now. Full code Renal dialysis diet Protonix for PUD prophylaxis Heparin for DVT prophylaxis PDMP PDMP Reviewed: Not Reviewed Attestations 2 Medical Necessity Statement*: Requires further hospitalization for management of ANDER on CKD requiring dialysis, respiratory failure in setting of multifocal pneumonia, rhinovirus bronchitis, congestive heart failure with a EF of 20%, wide-complex tachycardia Diagnoses Hypoxic respiratory failure J96.91 Acute renal failure with oliguria N17.9; R34 Pneumonia of both lower lobes due to infectious organism J18.9 Laterality: bilateral Lung location: lower lobe of lung Pneumonia type: due to unspecified organism Wide-complex tachycardia R00.0 Uremia N19 Nonischemic cardiomyopathy I42.8 Acute on chronic combined systolic and diastolic congestive heart failure I50.43 Mild aortic stenosis I35.0 Sleep apnea treated with continuous positive airway pressure (CPAP) G47.30 Esophageal dysphagia R13.19 Hypothyroidism E03.9 Acute on chronic renal insufficiency N28.9; N18.9 Elevated d-dimer R79.89 Rhinovirus infection B34.8 MGUS (monoclonal gammopathy of unknown significance) D47.2
[2025-06-12] MEDS: lactulose oral liq 20 gm/30 mL UDC PO (16:35)
[2025-06-12] MEDS: sennosides-docusate Tablet 1 TAB PO (16:35)
[2025-06-12] MEDS: ondansetron 2 mg/ML SDV 2 mL 4 MG IVP (19:58)
[2025-06-12] MEDS: fluticasone nasal spray 16gm Btl 2 SPRAY INTRANASAL (20:32)
[2025-06-13] VITALS (32 sets, daily range): BP systolic 89–126; BP diastolic 53–86; PULSE 68–96; RESP 12–28; TEMP 36.2–36.7; O2SAT 91–98
[2025-06-13 04:22] LABS: Hematocrit 30.8 % (36-47); Hemoglobin 9.90 g/dL (11.27-16.99); Mean Corpuscular HGB Conc 32.1 g/dL (30-55); Mean Corpuscular Hemoglobin 35.2 pg (27-33); Mean Corpuscular Volume 109.6 fl (85-98); Nucleated Red Blood Cells % 6.7 %; Platelet Count 223 10^3/cmm (157-399); Red Blood Count 2.81 10^6/uL (3.85-5.65); White Blood Count 14.44 10^3/uL (3.29-11.43)
[2025-06-13 04:39] LABS: Ammonia 44 umol/L (11-51)
[2025-06-13 04:42] LABS: Albumin Level 4.0 g/dL (3.5-5.2); Alkaline Phosphatase 433 U/L (35-105); Anion Gap 20.5 (5-19); Blood Urea Nitrogen 49 mg/dL (8-23); Calcium 9.0 mg/dL (8.5-10.5); Carbon Dioxide 25 mmol/L (22-29); Chloride 96 mmol/L (98-107); Creatinine Clr Calc Pharmacy 17.5228; Globulin 2.4 g/dL (1.3-4.6); Glucose 143 mg/dL (65-115); Osmolality Calculated 299 mOsm/kg (285-295); Potassium 4.5 mmol/L (3.5-5.1); Sodium 137 mmol/L (136-145); Total Protein 6.4 g/dL (6.6-8.7)
[2025-06-13] MEDS: carbidopa-levodopa ER 50-200mg Tablet 1 EACH PO ×3 (04:44→20:33)
[2025-06-13] MEDS: sennosides-docusate Tablet 1 TAB PO ×2 (04:44→16:56)
[2025-06-13 05:01] LABS: Aspartate Amino Transferase 1617 U/L (0-32)
[2025-06-13] MEDS: methylPREDNISolone sod succ 40 mg/mL INJ IVP (05:05)
[2025-06-13 06:28] LABS: Alanine Aminotransferase 119 U/L (0-33)
[2025-06-13] MEDS: piperacillin-tazobactam 3.375 GM in sodium chloride 0.9% (plus) 50 ML IV ×2 (08:04→20:13)
--- NOTE | 2025-06-13 09:01 | XRR_ITS ---
PROCEDURE INFORMATION: Exam: XR Chest Exam date and time: 06/13/2025 12:26 PM Age: 79 years old Clinical indication: Cardiovascular condition or disease and lung condition and disease; Congestive heart failure (chf); Cause unknown; Type unknown; Pneumonia; Additional info: Chf, pna TECHNIQUE: Imaging protocol: Radiologic exam of the chest. Views: 1 view. COMPARISON: [place]d [id number] 06/10/2025 11:40 AM FINDINGS: Tubes, catheters and devices: Right IJ tunneled double-lumen central venous catheter is in stable position. Lungs: Patchy consolidation within the lung bases, [id number]. Worsening diffuse interstitial coarsening. Pleural spaces: Small bilateral pleural effusions. Heart/Mediastinum: Stable cardiomegaly. Bones/joints: Bilateral shoulder arthroplasties partially imaged. XR/XR chest 1V portable [id number] IMPRESSION: 1. Patchy bibasilar consolidation is ongoing. 2. Worsening diffuse interstitial coarsening may represent pulmonary edema.
[2025-06-13] MEDS: heparin 5,000 unit/mL INJ 1 mL 5000 UNIT SUBCUT ×2 (09:23→20:14)
[2025-06-13] MEDS: amiodarone 150 MG/100 ML PREMIX 400 MG IV (09:38)
--- NOTE | 2025-06-13 09:53 | P.PN_ITS ---
Subjective 2 Subjective: The patient was seen and examined. The patient had episode of A-fib with RVR this morning now back in sinus rhythm. Patient requiring BiPAP states she is feeling better with daily dialysis. She had difficulty with lactulose yesterday had some nausea. Medications: Reviewed: Yes Medication Review Details: Current Medications Acetaminophen (Acetaminophen 325 Mg Tablet) 650 mg PO Q6H PRN PRN Reason: Mild/Mod Pain Or Temp >/= 101 Hydrocodone Bitart/Acetaminophen (Hydrocodone-Acetaminophen 5-325 Mg Tablet) 1 tab PO Q6H PRN PRN Reason: PAIN Last Admin: 06/12/25 21:24 Dose: 1 tab Albuterol Sulfate (Albuterol 2.5 Mg/3 Ml Neb) 2.5 mg INHALATION QID.RESPIRATORY PRN PRN Reason: WHEEZING Artificial Tears (Artificial Tears Op Soln 15 Ml Btl) 1 drop EYE-BOTH Q4H PRN PRN Reason: DRY EYE(S) Bisoprolol Fumarate (Bisoprolol 5 Mg Tablet) 2.5 mg PO DAILY MAL Budesonide (Budesonide 0.5 Mg/2 Ml Neb) 0.5 mg INHALATION BID.RESPIRATORY MAL Last Admin: 06/13/25 08:41 Dose: 0.5 mg Carbidopa/Levodopa (Carbidopa-Levodopa Er 50-200mg Tablet) 1 each PO TID MAL Last Admin: 06/13/25 04:44 Dose: 1 each Fluticasone Propionate (Fluticasone Nasal [place] 16gm Btl) 2 spray INTRANASAL BEDTIME MAL Last Admin: 06/12/25 20:32 Dose: 2 spray Furosemide (Furosemide 40 Mg Tablet) 40 mg PO BID@08,16 MAL Last Admin: 06/13/25 09:22 Dose: 40 mg Gabapentin (Gabapentin 300 Mg Capsule) 300 mg PO BEDTIME MAL Last Admin: 06/12/25 20:31 Dose: 300 mg Heparin Sodium (Porcine) (Heparin 5,000 Unit/Ml Inj 1 Ml) 5,000 unit SUBCUT Q12H MAL Last Admin: 06/13/25 09:23 Dose: 5,000 unit Sodium Chloride (Sodium Chloride 0.9%) 1,000 mls @ 0 mls/hr IV .Q0M PRN PRN Reason: hypotension or symptomatic Albumin Human (Albumin) 12.5 gm in 50 mls @ 60 mls/hr IV PRN PRN PRN Reason: Hypotension and/or symptomatic Piperacillin Sod/Tazobactam (Sod 3.375 gm/ Sodium Chloride) 50 mls @ 12.5 mls/hr IV Q12H [facility] Last Admin: 06/13/25 08:04 Dose: 12.5 mls/hr AMIODARONE HCL/D5W (Amiodarone 900 Mg/500 Ml-D5w) 900 mg in 500 mls @ 0 mls/hr IV .Q0M MAL; Protocol Ipratropium [place] (Ipratropium 0.5 Mg/2.5 Ml Neb) 0.5 mg INHALATION Q6H.RESP [facility] Last Admin: 06/13/25 08:41 Dose: 0.5 mg Lactulose (Lactulose Oral Liq 20 Gm/30 Ml Udc) 20 gm PO Q12H [facility] Last Admin: 06/13/25 04:58 Dose: Not Given Levalbuterol HCl (Levalbuterol 0.63 Mg/3 Ml Neb) 0.63 mg INHALATION Q6H.RESP [facility] Last Admin: 06/13/25 08:41 Dose: 0.63 mg Levothyroxine Sodium (Levothyroxine 200 Mcg Tablet) 200 mcg PO DAILY [facility] Last Admin: 06/13/25 04:44 Dose: 200 mcg Midodrine (Midodrine 5 Mg Tablet) 5 mg PO TID PRN PRN Reason: Sbp less than 120 mmhg Montelukast Sodium (Montelukast Sodium 10 Mg Tablet) 10 mg PO BEDTIME [facility] Last Admin: 06/12/25 20:31 Dose: 10 mg Ondansetron HCl (Ondansetron 2 Mg/Ml Sdv 2 Ml) 4 mg IVP Q8H PRN PRN Reason: vomiting, or N/V if npo Last Admin: 06/12/25 19:58 Dose: 4 mg Pantoprazole Sodium (Pantoprazole Dr 40 Mg Tablet) 40 mg PO DAILY [facility] Last Admin: 06/13/25 04:44 Dose: 40 mg Prednisone (Prednisone 20 Mg Tablet) 40 mg PO DAILY [facility] Senna/Docusate Sodium (Sennosides-Docusate Tablet) 1 tab PO BID [facility] Last Admin: 06/13/25 04:44 Dose: 1 tab Trazodone HCl (Trazodone 50 Mg Tablet) 50 mg PO BEDTIME PRN PRN Reason: RESTLESSNESS Last Admin: 06/12/25 21:24 Dose: 50 mg Vitals/I&O/Wt Last Vital Signs Temp 98.7 F 06/12/25 19:00 Pulse 83 06/13/25 08:42 Resp 16 06/13/25 08:42 BP 158/102 06/12/25 19:00 Pulse Ox 95 06/13/25 08:42 O2 Del Method Nasal Cannula 06/13/25 01:58 O2 Flow Rate 2 06/13/25 01:58 FiO2 21 06/07/25 20:50 06/12/25 06/13/25 06/13/25 22:59 06:59 14:59 Intake Total 50 / 720 Output Total 55 / 2555 Balance -55 / -1885 50 / -1835 Weight last 48 hrs Weight 105 kg Weight 105 kg Weight 106 kg Physical Exam 2 Narrative: Obese lady in bed using CPAP,, she appears comfortable in bed. Vital signs noted. HEENT normocephalic/atraumatic. Neck obese Lungs -remains with dullness in both bases Heart positive S1-S2. Abdomen is soft positive bowel sounds. Extremities 1+ edema bilaterally. Neuro awake alert and oriented x 3, moves all extremities follows commands. more alert than yesterday Urinary Catheter Management: Romeo: Cath Placed During This Visit: yes Reason for Continuing Indwelling Catheter: Acute Urinary Retention or Obstruction Urinary Catheter Date of Insertion: 06/03/25 Urinary Catheter Time of Insertion: 18:38 Data 06/13/25 03:30 06/13/25 03:30 Micro: Microbiology 06/11/25 13:52 Gram Stain - Final Sputum - Expectorated Sputum A&P Assessment and plan 1. 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 Patient developed acute on chronic renal failure baseline creatinine 1.5 mg/dL in February 2025. She follows with [place] [facility]. Patient has known positive serum protein electrophoresis. Patient is now here with ANDER felt to be either ATN versus cardiorenal syndrome. Patient initiated dialysis on June 09, 2025. Patient has required dialysis for ultrafiltration over the last 4 days. I will repeat her chest x-ray today and try to give her a day off of dialysis. 2. Increased LFTs. Liver ultrasound normal size the liver nitrogen yesterday abnormal form the portal vein however no thrombus identified however it was patent and CT scan in June 10, 2025. 3. obstructive sleep apnea. On CPAP 4.Combined systolic and diastolic dysfunction as per cardiology. Would consider adding Entresto or an DANNY or ARB. Given low EF I am okay with systolic blood pressure 100 Will change oral furosemide to IV 5. Mild leukocytosis monitor 6. Mild anemia hemoglobin 9.9 will check B12 folate level 7. Yesterday patient had respiratory alkalosis 8. Last week TSH 1.12 9. PTH of 134. Repeat in a month = Patient has known MGUS and a very high free lambda. Would consider renal biopsy when stable Please ask cardiology if they feel that patient's echo can be consistent with cardiac amyloid. -Patient was seen and examined with the aid of a nurse using audiovisual equipment. This was a telehealth visit the patient consented to telehealth and to dialysis. Plan: See above PDMP PDMP Reviewed: Not Reviewed Attestations 2 Medical Necessity Statement*: Acute kidney injury, underlying heart failure reduced EF, increased LFTs, TRACEY on CPAP, obesity and anemia Time Spent in Patient Care: Greater than 35 minutes (>than 50% of time spent in counselling and/or direct pt care on unit) . Coding Level of Care Code Acute Code for Chg Fwd Diagnoses Acute renal failure with oliguria N17.9; R34
[2025-06-13] MEDS: AMIODARONE HCL/D5W 900 MG/500 ML BAG 33.33 MG IV (10:03)
[2025-06-13] MEDS: FUROsemide 10 mg/mL SDV 10mL 60 MG IVP ×2 (10:52→22:58)
[2025-06-13 11:13] LABS: Vitamin B12 > 2000 pg/mL (232-1245)
--- NOTE | 2025-06-13 11:34 | PC.NURSE ---
0910 Instructed to hold bisoprolol at this time - to reassess need later per Dr. Concepcion.
[2025-06-13] MEDS: lactulose oral liq 20 gm/30 mL UDC PO (16:55)
[2025-06-13] MEDS: fluticasone nasal spray 16gm Btl 2 SPRAY INTRANASAL (20:34)
[2025-06-14] VITALS (55 sets, daily range): BP systolic 80–109; BP diastolic 50–70; PULSE 57–82; RESP 7–24; TEMP 36.6–36.9; O2SAT 86–100
[2025-06-14 05:12] LABS: Hematocrit 30.6 % (36-47); Hemoglobin 9.80 g/dL (11.27-16.99); Mean Corpuscular HGB Conc 32.0 g/dL (30-55); Mean Corpuscular Hemoglobin 34.5 pg (27-33); Mean Corpuscular Volume 107.7 fl (85-98); Nucleated Red Blood Cells % 9.6 %; Platelet Count 192 10^3/cmm (157-399); Red Blood Count 2.84 10^6/uL (3.85-5.65); White Blood Count 14.12 10^3/uL (3.29-11.43)
[2025-06-14 05:37] LABS: Albumin Level 4.0 g/dL (3.5-5.2); Alkaline Phosphatase 435 U/L (35-105); Anion Gap 20.8 (5-19); Blood Urea Nitrogen 65 mg/dL (8-23); Calcium 8.8 mg/dL (8.5-10.5); Carbon Dioxide 24 mmol/L (22-29); Chloride 92 mmol/L (98-107); Creatinine Clr Calc Pharmacy 13.4790; Globulin 2.2 g/dL (1.3-4.6); Glucose 154 mg/dL (65-115); Magnesium 2.2 mg/dL (1.7-2.3); Osmolality Calculated 296 mOsm/kg (285-295); Potassium 4.8 mmol/L (3.5-5.1); Sodium 132 mmol/L (136-145); Total Protein 6.2 g/dL (6.6-8.7)
[2025-06-14] MEDS: carbidopa-levodopa ER 50-200mg Tablet 1 EACH PO ×3 (05:37→20:18)
[2025-06-14] MEDS: lactulose oral liq 20 gm/30 mL UDC PO (05:38)
[2025-06-14] MEDS: sennosides-docusate Tablet 1 TAB PO (05:38)
[2025-06-14 06:01] LABS: Aspartate Amino Transferase 886 U/L (0-32)
[2025-06-14 06:02] LABS: Alanine Aminotransferase 104 U/L (0-33)
[2025-06-14 06:05] LABS: Ferritin 654 ng/mL (15-150); Iron 64 ug/dL (37-145); Total Iron Binding Capacity 288 mcg/dl; Unsaturated Iron Binding 224 ug/dL (112-347)
--- NOTE | 2025-06-14 07:46 | P.PN_ITS ---
Subjective 2 Subjective: Seen and examined. Comfortable sleeping using CPAP. Decreased crackles decrease edema. Medications: Reviewed: Yes Medication Review Details: Current Medications Acetaminophen (Acetaminophen 325 Mg Tablet) 650 mg PO Q6H PRN PRN Reason: Mild/Mod Pain Or Temp >/= 101 Hydrocodone Bitart/Acetaminophen (Hydrocodone-Acetaminophen 5-325 Mg Tablet) 1 tab PO Q6H PRN PRN Reason: PAIN Last Admin: 06/12/25 21:24 Dose: 1 tab Albuterol Sulfate (Albuterol 2.5 Mg/3 Ml Neb) 2.5 mg INHALATION QID.RESPIRATORY PRN PRN Reason: WHEEZING Artificial Tears (Artificial Tears Op Soln 15 Ml Btl) 1 drop EYE-BOTH Q4H PRN PRN Reason: DRY EYE(S) Budesonide (Budesonide 0.5 Mg/2 Ml Neb) 0.5 mg INHALATION BID.RESPIRATORY MAL Last Admin: 06/13/25 20:09 Dose: 0.5 mg Carbidopa/Levodopa (Carbidopa-Levodopa Er 50-200mg Tablet) 1 each PO TID MAL Last Admin: 06/14/25 05:37 Dose: 1 each Fluticasone Propionate (Fluticasone Nasal [place] 16gm Btl) 2 spray INTRANASAL BEDTIME MAL Last Admin: 06/13/25 20:34 Dose: 2 spray Furosemide (Furosemide 10 Mg/Ml Sdv 10ml) 60 mg IVP Q12H MAL Last Admin: 06/13/25 22:58 Dose: 60 mg Gabapentin (Gabapentin 300 Mg Capsule) 300 mg PO BEDTIME MAL Last Admin: 06/13/25 20:33 Dose: 300 mg Heparin Sodium (Porcine) (Heparin 5,000 Unit/Ml Inj 1 Ml) 5,000 unit SUBCUT Q12H MAL Last Admin: 06/13/25 20:14 Dose: 5,000 unit Sodium Chloride (Sodium Chloride 0.9%) 1,000 mls @ 0 mls/hr IV .Q0M PRN PRN Reason: hypotension or symptomatic Albumin Human (Albumin) 12.5 gm in 50 mls @ 60 mls/hr IV PRN PRN PRN Reason: Hypotension and/or symptomatic Piperacillin Sod/Tazobactam (Sod 3.375 gm/ Sodium Chloride) 50 mls @ 12.5 mls/hr IV Q12H [facility] Stop: 06/16/25 23:59 Last Infusion: 06/14/25 01:22 Dose: Infused AMIODARONE HCL/D5W (Amiodarone 900 Mg/500 Ml-D5w) 900 mg in 500 mls @ 0 mls/hr IV .Q0M [facility]; Protocol Last Titration: 06/14/25 03:40 Dose: 0 mg/min, 0 mls/hr Ipratropium [place] (Ipratropium 0.5 Mg/2.5 Ml Neb) 0.5 mg INHALATION Q6H.RESP [facility] Last Admin: 06/14/25 01:16 Dose: Not Given Lactulose (Lactulose Oral Liq 20 Gm/30 Ml Udc) 20 gm PO Q12H MAL Last Admin: 06/14/25 05:38 Dose: 20 gm Levalbuterol HCl (Levalbuterol 0.63 Mg/3 Ml Neb) 0.63 mg INHALATION Q6H.RESP [facility] Last Admin: 06/14/25 01:16 Dose: Not Given Levothyroxine Sodium (Levothyroxine 200 Mcg Tablet) 200 mcg PO DAILY [facility] Last Admin: 06/14/25 05:37 Dose: 200 mcg Midodrine (Midodrine 5 Mg Tablet) 5 mg PO TID [facility] Last Admin: 06/14/25 05:37 Dose: 5 mg Montelukast Sodium (Montelukast Sodium 10 Mg Tablet) 10 mg PO BEDTIME [facility] Last Admin: 06/13/25 20:33 Dose: 10 mg Ondansetron HCl (Ondansetron 2 Mg/Ml Sdv 2 Ml) 4 mg IVP Q8H PRN PRN Reason: vomiting, or N/V if npo Last Admin: 06/12/25 19:58 Dose: 4 mg Pantoprazole Sodium (Pantoprazole Dr 40 Mg Tablet) 40 mg PO DAILY [facility] Last Admin: 06/14/25 05:37 Dose: 40 mg Prednisone (Prednisone 20 Mg Tablet) 40 mg PO DAILY [facility] Last Admin: 06/14/25 05:37 Dose: 40 mg Senna/Docusate Sodium (Sennosides-Docusate Tablet) 1 tab PO BID [facility] Last Admin: 06/14/25 05:38 Dose: 1 tab Trazodone HCl (Trazodone 50 Mg Tablet) 50 mg PO BEDTIME PRN PRN Reason: RESTLESSNESS Last Admin: 06/13/25 20:34 Dose: 50 mg Vitals/I&O/Wt Last Vital Signs Temp 97.8 F 06/14/25 00:00 Pulse 60 06/14/25 06:51 Resp 12 06/14/25 06:30 BP 104/68 06/14/25 06:30 Pulse Ox 96 06/14/25 06:30 O2 Del Method CPAP 06/14/25 06:30 O2 Flow Rate 3 06/13/25 20:00 FiO2 21 06/07/25 20:50 06/13/25 06/14/25 06/14/25 22:59 06:59 14:59 Intake Total 878.304 / 1898.304 194.473 / 2092.777 Output Total Balance 873.304 / 1893.304 169.473 / 2062.777 Weight last 48 hrs Weight 108 kg Weight 105 kg Physical Exam 2 Narrative: Obese lady in bed using CPAP,, she appears comfortable in bed. Vital signs noted. HEENT normocephalic/atraumatic. Neck obese Lungs -air movement has improved. No crackles some dullness at bilateral bases Heart positive S1-S2. Abdomen is soft positive bowel sounds. Extremities 1+ edema bilaterally. Has improved Neuro awake alert and oriented, moves all extremities follows commands. Urinary Catheter Management: Romeo: Cath Placed During This Visit: yes Reason for Continuing Indwelling Catheter: Accurate Measurement of Urinary Output in Critically Ill Patients Urinary Catheter Date of Insertion: 06/03/25 Urinary Catheter Time of Insertion: 18:38 Data 06/14/25 04:50 06/14/25 04:50 Micro: Microbiology 06/11/25 13:52 Gram Stain - Final Sputum - Expectorated Sputum Sputum Culture - Preliminary A&P Assessment and plan 1. 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 Patient developed acute on chronic renal failure baseline creatinine 1.5 mg/dL in February 2025. She follows with [place] [facility]. Patient has known positive serum protein electrophoresis. Patient is now here with ANDER felt to be either ATN versus cardiorenal syndrome. Patient initiated dialysis on June 09, 2025. Plan for repeat dialysis tomorrow please ensure that she has an outpatient dialysis spot.. 2. Increased LFTs. Liver ultrasound normal size the liver. - Liver function test are improving today 3. obstructive sleep apnea. On CPAP 4.Combined systolic and diastolic dysfunction as per cardiology. Would consider adding Entresto or an DANNY or ARB. Given low EF I am okay with systolic blood pressure 100 Will change oral furosemide to IV Mild hyponatremia. 5. Mild leukocytosis monitor 6. Mild anemia hemoglobin 9.9 will check B12 folate level 7. Yesterday patient had respiratory alkalosis 8. Last week TSH 1.12 9. PTH of 134. Repeat in a month = Patient has known MGUS and a very high free lambda. Would consider renal biopsy when stable Please ask cardiology if they feel that patient's echo can be consistent with cardiac amyloid. -Patient was seen and examined with the aid of a nurse using audiovisual equipment. This was a telehealth visit the patient consented to telehealth and to dialysis. Plan: Attempt diuretics. Plan dialysis for tomorrow. See above PDMP PDMP Reviewed: Not Reviewed Attestations 2 Medical Necessity Statement*: As per hospitalist. New start dialysis, acute on chronic renal failure, acute on chronic systolic heart failure. Time Spent in Patient Care: 16 - 35 minutes (>than 50% of time sp ent in counselling and/or direct pt care on unit) . Coding Level of Care Code Acute Code for Chg Fwd Diagnoses Acute renal failure with oliguria N17.9; R34
[2025-06-14] MEDS: piperacillin-tazobactam 3.375 GM in sodium chloride 0.9% (plus) 50 ML IV ×2 (08:51→19:31)
[2025-06-14] MEDS: heparin 5,000 unit/mL INJ 1 mL 5000 UNIT SUBCUT ×2 (08:51→20:19)
[2025-06-14] MEDS: FUROsemide 10 mg/mL SDV 10mL 60 MG IVP ×2 (11:47→21:44)
--- NOTE | 2025-06-14 14:58 | P.PN_ITS ---
Subjective 2 Subjective: No acute events overnight. Laying comfortably in bed. Denies any nausea, vomiting, headache. Overnight amiodarone drip was discontinued because of bradycardia. Today morning in normal sinus rhythm. Tried to get out of bed yesterday but her knees gave away with nursing staff. Did not hit her head. Medications: Reviewed: Yes Vitals/I&O/Wt Last Vital Signs Temp 97.8 F 06/14/25 00:00 Pulse 76 06/14/25 09:56 Resp 20 H 06/14/25 09:40 BP 104/68 06/14/25 06:30 Pulse Ox 98 06/14/25 09:40 O2 Del Method Nasal Cannula 06/14/25 09:40 O2 Flow Rate 3 06/14/25 09:40 FiO2 21 06/07/25 20:50 06/13/25 06/14/25 06/14/25 22:59 06:59 14:59 Intake Total 878.304 / 1898.304 194.473 / 2092.777 Output Total Balance 873.304 / 1893.304 169.473 / 2062.777 Weight last 48 hrs Weight 108 kg Physical Exam 2 Narrative: General: No acute distress, AO x3, chronically sick appearing, on CPAP nasal pillows HEENT: PERRLA, pupils bilaterally equal and reactive Chest: Bilateral bronchial breath sounds lower lung raymond, decreased air entry all over, fine crackles in the right chest CVS: S1-S2 regular, no murmurs, no tachycardia, no gallops, no rubs Abdomen: Soft, nontender, no organomegaly, bowel sounds present Neuro: No focal deficits, no facial deformity, AO x3, power 5/5 in all limbs Urinary Catheter Management: Romeo: Cath Placed During This Visit: yes Reason for Continuing Indwelling Catheter: Accurate Measurement of Urinary Output in Critically Ill Patients Urinary Catheter Date of Insertion: 06/03/25 Urinary Catheter Time of Insertion: 18:38 Data 06/14/25 04:50 06/14/25 04:50 Micro: Microbiology 06/11/25 13:52 Gram Stain - Final Sputum - Expectorated Sputum Sputum Culture - Final A&P Assessment and plan 1. Hypoxic respiratory failure: 2. Acute renal failure with oliguria: Romeo in place and continue diuretics. Serum bicarb 28 off bicarbonate replacement fluid patient is hard to diurese in part due to hypotension. Midodrine started yesterday but blood pressure still systolic 103. Will increase midodrine to 10 mg 3 times daily 3. Pneumonia of both lower lobes due to infectious organism: 4. Wide-complex tachycardia: 5. Uremia: 6. Nonischemic cardiomyopathy: 7. Acute on chronic combined systolic and diastolic congestive heart failure: EF 25 to 35% based on prior nuclear images and echo. Continue home CPAP for sleep Repeat echocardiogram showed EF 30% and grade 2/4 diastolic dysfunction no pericardial effusion. Severe aortic valve calcification noted with moderate aortic valve stenosis and moderate mitral valve regurg 8. Mild aortic stenosis: 9. Sleep apnea treated with continuous positive airway pressure (CPAP): Resume home APAP on her ResMed 11 machine 10. Esophageal dysphagia: Esophagram shows esophageal spasm and moderate-sized hiatal hernia and esophagus is displaced will need to further image for possible goiter or mass. Will allow contrast from barium swallow to pass and plan on CT of the chest abdomen pelvis to include the neck on Sunday Patient also has a right kidney mass to be evaluated. She needs to pass her stool regarding barium swallow before proceeding with repeat imaging 11. Hypothyroidism: TSH was 9 so I raise the levothyroxine. Notably patient had possible goiter on chest x-ray based on displacement of esophagus on barium swallow. CT scan ordered for the morning. We are awaiting passage of barium because that had compromised images of the kidney on last CT scan 12. Acute on chronic renal insufficiency: 13. Elevated d-dimer: 14. Rhinovirus infection: 15. MGUS (monoclonal gammopathy of unknown significance): Plan: Plan for the day: Continue with prednisone 40 mg oral daily, nebulization treatment. Oxygen supplementation keeping saturation 90%. CPAP overnight. Continue with midodrine 5 mg 3 times daily. Blood pressure stable on the same. Overnight amiodarone drip for discontinue because of bradycardia. Though patient remains in normal sinus rhythm for now. Changed to amiodarone 20 mg oral daily. Hold off on starting bisoprolol for now. Transaminitis improving today. Continue to monitor. Out of bed to chair. Physical therapy. Discussed discharge planning discussed in detail with the patient. She is agreeable to SNF placement now. States she is significantly deconditioned and and now sees she would benefit from SNF. Appreciate diet as per speech evaluation. Out of bed to chair. Aggressive pulmonary toilet with I-S. Continue with IV Zosyn to finish a 5-day course. Appreciate nephrology recommendations. Patient has had 3 days of dialysis. Overall around 8 L negative. Goals of care discussion: Had detailed goals of care discussion with patient and daughter at bedside. All the questions were answered. Guarded prognosis. Continue care at ICU for now. Full code Renal dialysis diet Protonix for PUD prophylaxis Heparin for DVT prophylaxis PDMP PDMP Reviewed: Not Reviewed Attestations 2 Medical Necessity Statement*: Requires further hospitalization for management of acute on chronic congestive heart failure, ANDER and CKD on new dialysis, respiratory failure in setting of rhinovirus infection, CHF, physical deconditioning while safe discharge planning is sought, broad complex tachycardia Diagnoses Hypoxic respiratory failure J96.91 Acute renal failure with oliguria N17.9; R34 Pneumonia of both lower lobes due to infectious organism J18.9 Pneumonia type: due to unspecified organism Laterality: bilateral Lung location: lower lobe of lung Wide-complex tachycardia R00.0 Uremia N19 Nonischemic cardiomyopathy I42.8 Acute on chronic combined systolic and diastolic congestive heart failure I50.43 Mild aortic stenosis I35.0 Sleep apnea treated with continuous positive airway pressure (CPAP) G47.30 Esophageal dysphagia R13.19 Hypothyroidism E03.9 Acute on chronic renal insufficiency N28.9; N18.9 Elevated d-dimer R79.89 Rhinovirus infection B34.8 MGUS (monoclonal gammopathy of unknown significance) D47.2
[2025-06-14] MEDS: fluticasone nasal spray 16gm Btl 2 SPRAY INTRANASAL (20:19)
[2025-06-14] MEDS: HYDROcodone-acetaminophen 5-325 mg Tablet 1 TAB PO (21:45)
[2025-06-15] VITALS (55 sets, daily range): BP systolic 82–122; BP diastolic 53–74; PULSE 60–116; RESP 7–26; TEMP 35.8–36.5; O2SAT 89–100
[2025-06-15 04:35] LABS: Hematocrit 30.8 % (36-47); Hemoglobin 9.90 g/dL (11.27-16.99); Mean Corpuscular HGB Conc 32.1 g/dL (30-55); Mean Corpuscular Hemoglobin 34.5 pg (27-33); Mean Corpuscular Volume 107.3 fl (85-98); Nucleated Red Blood Cells % 9.5 %; Platelet Count 200 10^3/cmm (157-399); Red Blood Count 2.87 10^6/uL (3.85-5.65); White Blood Count 18.17 10^3/uL (3.29-11.43)
[2025-06-15] MEDS: sennosides-docusate Tablet 1 TAB PO (04:47)
[2025-06-15] MEDS: lactulose oral liq 20 gm/30 mL UDC PO (04:47)
[2025-06-15] MEDS: carbidopa-levodopa ER 50-200mg Tablet 1 EACH PO ×3 (04:47→20:21)
[2025-06-15 04:54] LABS: Albumin Level 4.0 g/dL (3.5-5.2); Alkaline Phosphatase 391 U/L (35-105); Anion Gap 22.8 (5-19); Aspartate Amino Transferase 435 U/L (0-32); Calcium 8.9 mg/dL (8.5-10.5); Carbon Dioxide 24 mmol/L (22-29); Chloride 90 mmol/L (98-107); Creatinine Clr Calc Pharmacy 12.7288; Globulin 2.2 g/dL (1.3-4.6); Glucose 159 mg/dL (65-115); Magnesium 2.3 mg/dL (1.7-2.3); Osmolality Calculated 302 mOsm/kg (285-295); Potassium 4.8 mmol/L (3.5-5.1); Sodium 132 mmol/L (136-145); Total Protein 6.2 g/dL (6.6-8.7)
[2025-06-15 05:00] LABS: Blood Urea Nitrogen 82 mg/dL (8-23)
[2025-06-15 05:37] LABS: Alanine Aminotransferase 72 U/L (0-33)
--- NOTE | 2025-06-15 07:59 | XR_ITS ---
WS: [id number] Exam: XR chest 1V portable [id number] Date/Time of Exam: 06/15/2025 7:59 AM Reason For Exam: resp failure Comparison 06/13/2025. Pulmonary infiltrates show significant improvement. There is still some residual infiltrate in the RIGHT base. Heart size is unchanged. No pneumothorax or pleural effusion. A right-sided double-lumen dialysis catheter in place unchanged in position. Bilateral shoulder replacements. The mediastinum is n ormal in contour. Bony structures are intact. XR/XR chest 1V portable [id number] IMPRESSION: 1. Improved bilateral pulmonary infiltrates. There is still some residual in th e RIGHT base. No other change.
[2025-06-15] MEDS: heparin 5,000 unit/mL INJ 1 mL 5000 UNIT SUBCUT ×2 (08:20→20:21)
[2025-06-15] MEDS: piperacillin-tazobactam 3.375 GM in sodium chloride 0.9% (plus) 50 ML IV ×2 (08:20→19:17)
--- NOTE | 2025-06-15 08:42 | PM.PN ---
Subjective Subjective: Blood pressure on low side. Feels short of breath has edema decreased urine output. No appetite no headaches no chest pain. States she feels better with dialysis. Medications: Reviewed: Yes Medication Review Details: Current Medications Acetaminophen (Acetaminophen 325 Mg Tablet) 650 mg PO Q6H PRN PRN Reason: Mild/Mod Pain Or Temp >/= 101 Hydrocodone Bitart/Acetaminophen (Hydrocodone-Acetaminophen 5-325 Mg Tablet) 1 tab PO Q6H PRN PRN Reason: PAIN Last Admin: 06/14/25 21:45 Dose: 1 tab Albuterol Sulfate (Albuterol 2.5 Mg/3 Ml Neb) 2.5 mg INHALATION QID.RESPIRATORY PRN PRN Reason: WHEEZING Amiodarone HCl (Amiodarone 200 Mg Tablet) 200 mg PO DAILY MAL Last Admin: 06/15/25 04:47 Dose: 200 mg Artificial Tears (Artificial Tears Op Soln 15 Ml Btl) 1 drop EYE-BOTH Q4H PRN PRN Reason: DRY EYE(S) Budesonide (Budesonide 0.5 Mg/2 Ml Neb) 0.5 mg INHALATION BID.RESPIRATORY MAL Last Admin: 06/15/25 07:39 Dose: 0.5 mg Carbidopa/Levodopa (Carbidopa-Levodopa Er 50-200mg Tablet) 1 each PO TID MAL Last Admin: 06/15/25 04:47 Dose: 1 each Fluticasone Propionate (Fluticasone Nasal [place] 16gm Btl) 2 spray INTRANASAL BEDTIME MAL Last Admin: 06/14/25 20:19 Dose: 2 spray Furosemide (Furosemide 10 Mg/Ml Sdv 10ml) 60 mg IVP Q12H MAL Last Admin: 06/14/25 21:44 Dose: 60 mg Gabapentin (Gabapentin 100 Mg Capsule) 200 mg PO BEDTIME MAL Last Admin: 06/14/25 20:19 Dose: 200 mg Heparin Sodium (Porcine) (Heparin 5,000 Unit/Ml Inj 1 Ml) 5,000 unit SUBCUT Q12H MAL Last Admin: 06/15/25 08:20 Dose: 5,000 unit Sodium Chloride (Sodium Chloride 0.9%) 1,000 mls @ 0 mls/hr IV .Q0M PRN PRN Reason: hypotension or symptomatic Albumin Human (Albumin) 12.5 gm in 50 mls @ 60 mls/hr IV PRN PRN PRN Reason: Hypotension and/or symptomatic Piperacillin Sod/Tazobactam (Sod 3.375 gm/ Sodium Chloride) 50 mls @ 12.5 mls/hr IV Q12H [facility] Stop: 06/16/25 23:59 Last Admin: 06/15/25 08:20 Dose: 12.5 mls/hr Ipratropium [place] (Ipratropium 0.5 Mg/2.5 Ml Neb) 0.5 mg INHALATION Q6H.RESP [facility] Last Admin: 06/15/25 07:39 Dose: 0.5 mg Lactulose (Lactulose Oral Liq 20 Gm/30 Ml Udc) 20 gm PO Q12H [facility] Last Admin: 06/15/25 04:47 Dose: 20 gm Levalbuterol HCl (Levalbuterol 0.63 Mg/3 Ml Neb) 0.63 mg INHALATION Q6H.RESP [facility] Last Admin: 06/15/25 07:39 Dose: 0.63 mg Levothyroxine Sodium (Levothyroxine 200 Mcg Tablet) 200 mcg PO DAILY [facility] Last Admin: 06/15/25 04:47 Dose: 200 mcg Midodrine (Midodrine 5 Mg Tablet) 5 mg PO TID [facility] Last Admin: 06/15/25 04:47 Dose: 5 mg Montelukast Sodium (Montelukast Sodium 10 Mg Tablet) 10 mg PO BEDTIME [facility] Last Admin: 06/14/25 20:18 Dose: 10 mg Ondansetron HCl (Ondansetron 2 Mg/Ml Sdv 2 Ml) 4 mg IVP Q8H PRN PRN Reason: vomiting, or N/V if npo Last Admin: 06/12/25 19:58 Dose: 4 mg Pantoprazole Sodium (Pantoprazole Dr 40 Mg Tablet) 40 mg PO DAILY [facility] Last Admin: 06/15/25 04:47 Dose: 40 mg Prednisone (Prednisone 20 Mg Tablet) 40 mg PO DAILY [facility] Last Admin: 06/15/25 04:47 Dose: 40 mg Senna/Docusate Sodium (Sennosides-Docusate Tablet) 1 tab PO BID [facility] Last Admin: 06/15/25 04:47 Dose: 1 tab Trazodone HCl (Trazodone 50 Mg Tablet) 50 mg PO BEDTIME PRN PRN Reason: RESTLESSNESS Last Admin: 06/14/25 20:19 Dose: 50 mg Vitals/I&O/Wt Last Vital Signs Temp 96.5 F L 06/15/25 04:30 Pulse 69 06/15/25 07:42 Resp 16 06/15/25 07:42 BP 111/65 06/15/25 04:30 Pulse Ox 95 06/15/25 07:42 O2 Del Method CPAP 06/15/25 07:42 O2 Flow Rate 2 06/15/25 07:42 FiO2 21 06/07/25 20:50 06/14/25 06/15/25 06/15/25 22:59 06:59 14:59 Intake Total 50 / 290 200 / 490 Output Total Balance 35 / 275 200 / 475 Weight last 48 hrs Weight 108 kg Physical Exam Narrative: Obese lady in bed using CPAP, she appears comfortable in bed. Vital signs noted. HEENT normocephalic/atraumatic. Neck obese Lungs -dull bases bilateral Heart positive S1-S2. Abdomen is soft positive bowel sounds. Extremities 1+ edema bilaterally. Neuro awake alert and oriented, moves all extremities follows commands. Urinary Catheter Management: Romeo: Cath Placed During This Visit: yes Reason for Continuing Indwelling Catheter: Accurate Measurement of Urinary Output in Critically Ill Patients Urinary Catheter Date of Insertion: 06/03/25 Urinary Catheter Time of Insertion: 18:38 Data 06/15/25 03:55 06/15/25 03:55 Micro: Microbiology 06/11/25 13:52 Gram Stain - Final Sputum - Expectorated Sputum Sputum Culture - Final A&P Assessment and plan 1. 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 Patient developed acute on chronic renal failure baseline creatinine 1.5 mg/dL in February 2025. She follows with [facility]. Patient has known positive serum protein electrophoresis. Patient is now here with ANDER felt to be either ATN versus cardiorenal syndrome. Patient initiated dialysis on June 09, 2025. Plan for repeat dialysis today, please ensure that she has an outpatient dialysis spot. The patient feels better with dialysis. Patient's blood pressures dropped on days without it when she becomes volume overloaded. 2. Increased LFTs. Liver ultrasound normal size the liver. - Liver function test are improving today 3. obstructive sleep apnea. On CPAP 4.Combined systolic and diastolic dysfunction as per cardiology. Would consider adding Entresto or an DANNY or ARB. Given low EF I am okay with systolic blood pressure 100 hyponatremia. Likely from volume overload. Continue dialysis 5. Mild leukocytosis monitor 6. Mild anemia hemoglobin 9.9 will check B12 folate level 7. Monitor respiratory alkalosis with dialysis 8. Last week TSH 1.12 9. PTH of 134. Repeat in a month = Patient has known MGUS and a very high free lambda. Would consider renal biopsy when stable Please ask cardiology if they feel that patient's echo can be consistent with cardiac amyloid. -Patient was seen and examined with the aid of a nurse using audiovisual equipment. This was a telehealth visit the patient consented to telehealth and to dialysis. Plan: Continue dialysis attempt to discharge from ICU. PDMP PDMP Reviewed: Not Reviewed Attestations Medical Necessity Statement*: Volume overload mild hyponatremia acute renal failure on chronic kidney disease dialysis dependent. Time Spent in Patient Care: 16 - 35 minutes (>than 50% of time spent in counselling and/or direct pt care on unit). Coding Level of Care Code Acute Code for Chg Fwd Diagnoses Acute renal failure with oliguria N17.9; R34
--- NOTE | 2025-06-15 09:10 | P.PN_ITS ---
Subjective 2 Subjective: No acute events overnight. Laying comfortably in bed. Denies any nausea, vomiting, headache. Having episodes of diarrhea occasionally as per nursing staff. Tolerating CPAP well overnight. Heart rate stable. Currently on 2 L oxygen supplementation. Afebrile in last 24 hours. Medications: Reviewed: Yes Vitals/I&O/Wt Last Vital Signs Temp 96.5 F L 06/15/25 04:30 Pulse 69 06/15/25 07:42 Resp 16 06/15/25 07:42 BP 111/65 06/15/25 04:30 Pulse Ox 95 06/15/25 07:42 O2 Del Method CPAP 06/15/25 07:42 O2 Flow Rate 2 06/15/25 07:42 FiO2 21 06/07/25 20:50 06/14/25 06/15/25 06/15/25 22:59 06:59 14:59 Intake Total 50 / 290 200 / 490 Output Total 15 / 15 Balance 35 / 275 200 / 475 Weight last 48 hrs Weight 108 kg Physical Exam 2 Narrative: General: No acute distress, AO x3, chronically sick appearing, on CPAP nasal pillows HEENT: PERRLA, pupils bilaterally equal and reactive Chest: Bilateral bronchial breath sounds lower lung raymond, decreased air entry all over, fine crackles in the right chest CVS: S1-S2 regular, no murmurs, no tachycardia, no gallops, no rubs Abdomen: Soft, nontender, no organomegaly, bowel sounds present Neuro: No focal deficits, no facial deformity, AO x3, power 5/5 in all limbs Urinary Catheter Management: Romeo: Cath Placed During This Visit: yes Reason for Continuing Indwelling Catheter: Accurate Measurement of Urinary Output in Critically Ill Patients Urinary Catheter Date of Insertion: 06/03/25 Urinary Catheter Time of Insertion: 18:38 Data 06/15/25 03:55 06/15/25 03:55 Micro: Microbiology 06/11/25 13:52 Gram Stain - Final Sputum - Expectorated Sputum Sputum Culture - Final A&P Assessment and plan 1. Hypoxic respiratory failure: 2. Acute renal failure with oliguria: Romeo in place and continue diuretics. Serum bicarb 28 off bicarbonate replacement fluid patient is hard to diurese in part due to hypotension. Midodrine started yesterday but blood pressure still systolic 103. Will increase midodrine to 10 mg 3 times daily 3. Pneumonia of both lower lobes due to infectious organism: 4. Wide-complex tachycardia: 5. Uremia: 6. Nonischemic cardiomyopathy: 7. Acute on chronic combined systolic and diastolic congestive heart failure: EF 25 to 35% based on prior nuclear images and echo. Continue home CPAP for sleep Repeat echocardiogram showed EF 30% and grade 2/4 diastolic dysfunction no pericardial effusion. Severe aortic valve calcification noted with moderate aortic valve stenosis and moderate mitral valve regurg 8. Mild aortic stenosis: 9. Sleep apnea treated with continuous positive airway pressure (CPAP): Resume home APAP on her ResMed 11 machine 10. Esophageal dysphagia: Esophagram shows esophageal spasm and moderate-sized hiatal hernia and esophagus is displaced will need to further image for possible goiter or mass. Will allow contrast from barium swallow to pass and plan on CT of the chest abdomen pelvis to include the neck on Sunday Patient also has a right kidney mass to be evaluated. She needs to pass her stool regarding barium swallow before proceeding with repeat imaging 11. Hypothyroidism: TSH was 9 so I raise the levothyroxine. Notably patient had possible goiter on chest x-ray based on displacement of esophagus on barium swallow. CT scan ordered for the morning. We are awaiting passage of barium because that had compromised images of the kidney on last CT scan 12. Acute on chronic renal insufficiency: 13. Elevated d-dimer: 14. Rhinovirus infection: 15. MGUS (monoclonal gammopathy of unknown significance): Plan: Plan for the day: Plan for dialysis today. Oxygen supplementation keeping saturation over 90%. Repeat chest x-ray. Continue with prednisone and nebulization treatment. Last dose of prednisone on 06/18. Goal blood pressure less than 140/90 mmHg with mean over 65. Blood pressures improving but not high. Hold off on adding antihypertensive for GDMT for heart failure. Continue with midodrine 5 mg 3 times daily. Out of bed to chair. Finished 5 days of IV Zosyn. Last dose on 06/16. Transaminitis improving. Continue to monitor every other day if needed. White count elevated. Patient afebrile. Most likely in setting of steroids. For now we will continue to monitor. Continue with current IV antibiotics. Blood cultures so far negative. If spikes fever can recheck blood pressures. Check C. difficile. Physical therapy. Safe discharge planning to SNF. Chair time as an outpatient. Goals of care discussion: Had detailed goals of care discussion with patient and daughter at bedside. All the questions were answered. Guarded prognosis. Continue care at ICU for now. Discharge plan: Given significant CHF, EF of 20%, respiratory failure, new dialysis, deconditioning patient would benefit from possible discharge to SNF for further rehabitation and monitoring. Patient for now is agreeable. Case management alerted. Full code Renal dialysis diet Protonix for PUD prophylaxis Heparin for DVT prophylaxis PDMP PDMP Reviewed: Not Reviewed Attestations 2 Medical Necessity Statement*: Requires further hospitalization for management of ANDER on CKD requiring dialysis, congestive heart failure with EF of 20%, respiratory failure in setting of CHF, COPD exacerbation, pneumonia in setting of rhinovirus infection Diagnoses Hypoxic respiratory failure J96.91 Acute renal failure with oliguria N17.9; R34 Pneumonia of both lower lobes due to infectious organism J18.9 Laterality: bilateral Lung location: lower lobe of lung Pneumonia type: due to unspecified organism Wide-complex tachycardia R00.0 Uremia N19 Nonischemic cardiomyopathy I42.8 Acute on chronic combined systolic and diastolic congestive heart failure I50.43 Mild aortic stenosis I35.0 Sleep apnea treated with continuous positive airway pressure (CPAP) G47.30 Esophageal dysphagia R13.19 Hypothyroidism E03.9 Acute on chronic renal insufficiency N28.9; N18.9 Elevated d-dimer R79.89 Rhinovirus infection B34.8 MGUS (monoclonal gammopathy of unknown significance) D47.2
[2025-06-15 11:36] LABS: C.Diff PCR (Lab) POSITIVE (Negative)
[2025-06-15 11:45] LABS: Clostridioides Difficile Toxin NEGATIVE (Negative)
[2025-06-15] MEDS: heparin, porcine 1,000 unit/mL INJ 10 mL 1000 UNIT IV (11:50)
--- NOTE | 2025-06-15 14:13 | PC.SOCIAL ---
IMM Update pg 2 of IMM Updated and reviewed w/ patient. Copy provided and copy dated, initialed and placed in chart.
--- NOTE | 2025-06-15 16:28 | ECG_ITS ---
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 Measurements Intervals [place] Rate: 96 P: 0 NH: 0 QRS: 59 QRSD: 138 T: 209 QT: 370 QTc: 468 Interpretive Statements ATRIAL FIBRILLATION INTRAVENTRICULAR CONDUCTION DELAY [130+ ms QRS DURATION] ANTEROSEPTAL MYOCARDIAL INFARCTION , OF INDETERMINATE AGE [40+ ms Q WAVE IN V1-V4] Compared to ECG 06/10/2025 15:13:15 Sinus tachycardia no longer present Ventricular premature complex(es) no longer present Myocardial infarct finding still present Electronically Signed On 06-15-2025 18:10:30 STRICKLER ATTENDANT by Rachel Kumar M.D. [email or web address] [id number]
--- NOTE | 2025-06-15 16:54 | PC.OT ---
Attempted skiled OT treatment. Pt unavailable due to receiving EKG.
[2025-06-15] MEDS: fluticasone nasal spray 16gm Btl 2 SPRAY INTRANASAL (20:21)
[2025-06-15] MEDS: amiodarone 150 MG/100 ML PREMIX 400 MG IV (21:25)
[2025-06-15] MEDS: FUROsemide 10 mg/mL SDV 10mL 60 MG IVP (21:26)
[2025-06-15] MEDS: HYDROcodone-acetaminophen 5-325 mg Tablet 1 TAB PO (23:20)
[2025-06-16] VITALS (55 sets, daily range): BP systolic 49–136; BP diastolic 39–78; PULSE 88–122; RESP 3–26; TEMP 36; O2SAT 85–98
[2025-06-16] MEDS: ondansetron 2 mg/ML SDV 2 mL 4 MG IVP (01:08)
[2025-06-16] MEDS: carbidopa-levodopa ER 50-200mg Tablet 1 EACH PO ×3 (04:59→20:28)
[2025-06-16 05:03] LABS: Hematocrit 31.1 % (36-47); Hemoglobin 10.50 g/dL (11.27-16.99); Mean Corpuscular HGB Conc 33.8 g/dL (30-55); Mean Corpuscular Hemoglobin 35.6 pg (27-33); Mean Corpuscular Volume 105.4 fl (85-98); Nucleated Red Blood Cells % 9.7 %; Platelet Count 230 10^3/cmm (157-399); Red Blood Count 2.95 10^6/uL (3.85-5.65); White Blood Count 19.05 10^3/uL (3.29-11.43)
[2025-06-16] MEDS: metoclopramide 5 mg/mL SDV 2 mL IVP (05:15)
[2025-06-16 05:20] LABS: Albumin Level 3.7 g/dL (3.5-5.2); Alkaline Phosphatase 334 U/L (35-105); Anion Gap 21.2 (5-19); Aspartate Amino Transferase 240 U/L (0-32); Blood Urea Nitrogen 57 mg/dL (8-23); Calcium 8.9 mg/dL (8.5-10.5); Carbon Dioxide 24 mmol/L (22-29); Chloride 93 mmol/L (98-107); Creatinine Clr Calc Pharmacy 15.4175; Globulin 2.5 g/dL (1.3-4.6); Glucose 128 mg/dL (65-115); Magnesium 2.2 mg/dL (1.7-2.3); Osmolality Calculated 295 mOsm/kg (285-295); Potassium 4.2 mmol/L (3.5-5.1); Sodium 134 mmol/L (136-145); Total Protein 6.2 g/dL (6.6-8.7)
[2025-06-16 06:04] LABS: Alanine Aminotransferase 68 U/L (0-33)
[2025-06-16] MEDS: piperacillin-tazobactam 3.375 GM in sodium chloride 0.9% (plus) 50 ML IV ×2 (07:39→20:24)
[2025-06-16] MEDS: heparin 5,000 unit/mL INJ 1 mL 5000 UNIT SUBCUT ×2 (08:15→20:27)
--- NOTE | 2025-06-16 08:21 | PC.NURSE ---
0800 Patient refused breakfast, due to nausea all night.
[2025-06-16] MEDS: FUROsemide 10 mg/mL SDV 10mL 60 MG IVP (09:59)
[2025-06-16] MEDS: amiodarone 150 MG/100 ML PREMIX 400 MG IV (10:13)
--- NOTE | 2025-06-16 10:25 | P.CONIM_ITS ---
<Statement entered by Tereso Gibson MD - 06/16/25 19:14> Patient was evaluated and cared for in conjunction with an advanced practice practitioner. I personally examined the patient and reviewed the chart and all pertinent data including imaging, telemetry, and laboratory results. I discussed the patient in detail with the advanced practice practitioner. Please see their note for complete consult note, testing results and agreed upon plan of care for the patient. Providers/Reason For Consult 2 Consulting Physician/Specialty*: Dr. Gibson, cardiology Reason for Consult*: Systolic heart failure, atrial fibrillation with RVR Requesting Physician: Can Concepcion MD Attending Physician: Can Concepcion MD Primary Care Provider: Haider Cancino MD History of Present Illness History of Present Illness Maryjo Lynn is a 79 year old female with past medical history of nonischemic cardiomyopathy (nonischemic stress test November of this year), moderate aortic stenosis, systolic CHF (previously LVEF 30% 06/04/2025, 35 to 40% in January of this year), CKD now in renal failure, chronic anemia. She presented to the emergency room with dizziness and low blood pressure, found to be in acute renal failure, with right lower lobe pneumonia. Found positive for C. difficile yesterday and rhinovirus on 06/10/2025. Consult requested for atrial fibrillation with RVR. This is new onset, EKG obtained 06/10/2025 showed sinus tachycardia, borderline right axis deviation, Q- wave in the anteroseptal leads, IVCD (QRS duration 139 ms). Yesterday afternoon she went into atrial fibrillation with RVR, blood pressure became very hypotensive for short period of time, was started on midodrine and pyridostigmine, as well as amiodarone infusion. No ischemic changes different from previous on the EKG. Limited echocardiogram obtained 06/10/2025 revealed LVEF 20%, global left ventricular hypokinesis. Complete echocardiogram 06/04/2025 revealed LVEF 30%, grade 2 diastolic dysfunction, global LV hypokinesis, moderate mitral digitation, moderate aortic stenosis (mean gradient 11.6 mmHg, MAGALYS 1.4 cm?), mild TR mild GA. She started dialysis on 06/09/2025, received dialysis 4 days in a row, last session was yesterday, which has improved shortness of breath. She was taking Entresto as an outpatient, reviewed Dr. Putnam's note, can add back Entresto when blood pressure stabilized and systolic BP is greater than 100. Review of labs: TSH 9 on 06/03/2025, she is on Synthroid 200 mcg daily. WBC 19 today, on prednisone. Hemoglobin 10.5 which is within her baseline 9-10. Potassium 4.2, BUN 57, creatinine 3.4. AST 240, ALT 68, improving. No chest pain reported. Medications/Allergies Home Medications ?Medication ?Instructions ?Recorded ?Confirmed ?Last Taken ?Type carbidopa ER 50 mg-levodopa 200 mg 1 tab PO TID 06/03/25 06/03/25 History tablet,extended release montelukast 10 mg tablet 10 mg PO BEDTIME 09/09/1906/02/25 History (Singulair) gabapentin 300 mg capsule 300 mg PO BEDTIME 11/29/20 1 06/02/25 History cetirizine 10 mg tablet (Zyrtec) 10 mg PO DAILY PRN Al lergy Symptoms 05/11/21 06/03/25 10/22/24 History sennosides 8.6 mg-docusate sodium 1 tab PO DAILY PRN C onstipation 12/05/21 06/03/25 10/21/24 History 50 mg tablet (Senna Plus) chlorpheniramine maleate 4 mg 4 mg PO BEDTIME PRN Itch ing 06/12/22 06/03/25 10/21/24 History tablet (Aller-Chlor) multivitamin 1 tab PO DAILY 06/12/2205/0706/03/25 History fluticasone propionate 50 2 spray intranasal .hs 07/1206/03/25 06/02/25 History mcg/actuation nasal spray,suspension (Flonase Allergy Relief) pantoprazole 40 mg tablet,delayed 40 mg PO BID #90 tab s 07/12/22 06/03/25 06/03/25 Rx release sdfadwgyvbr-iln-fmwqicesi-vitC 1 cap PO BID 01/17/23 1 06/03/25 History capsule (Glucosamine Complex-MSM capsule) turmeric root extract 500 mg 3,000 mg PO DAILY 4 06/03/25 06/03/25 History capsule diclofenac sodium 1 % topical gel See Rx Instructions .Route 05/22/24 06/03/25 Unknown Rx .COMPLEX #300 grams cyclobenzaprine 10 mg tablet 10 mg PO BEDTIME 05/23/24 06/03/25 06/02/25 History fluticasone 500 mcg-salmeterol 50 1 inh inhalation BID 05/23/24 06/03/25 06/03/25 History mcg/dose blistr powdr for inhalation (Advair Diskus) zolpidem 5 mg tablet (Ambien) 2.5 mg PO BEDTIME PRN In somnia 05/23/24 06/03/25 10/21/24 History atorvastatin 40 mg tablet 40 mg PO DAILY #90 tabs 12/0506/03/25 06/02/25 Rx bisoprolol fumarate 5 mg tablet 2.5 mg (1/2 x 5 mg) PO DAILY #45 12/30/24 06/03/25 06/03/25 Rx tabs torsemide 20 mg tablet 10 mg PO DAILY 02/03/2505/07 Unknown History hydrocodone 5 mg-acetaminophen 325 1 tab PO Q6H PRN Pa in 03/03/25 06/03/25 Unknown History mg tablet albuterol sulfate 90 mcg/actuation 2 puff inhalation Q ID PRN Wheezing 06/03/25 06/03/25 Unknown History aerosol inhaler clindamycin phosphate 1 % lotion 1 applic topical KELLY Y PRN skin 06/03/25 06/03/25 Unknown History rash estradiol 0.01% (0.1 mg/gram) 1 g vaginal DAILY 06/03/25 Unknown History vaginal cream hydroxychloroquine 200 mg tablet See Rx Instructions . Route .COMPLEX 06/03/25 06/03/25 06/03/25 History (Plaquenil) levothyroxine 150 mcg tablet 150 mcg PO DAILY 06/03/25 06/03/25 06/03/25 History (Synthroid) lidocaine 5 % topical patch 1 patch topical DAILY PRN Pain 06/03/25 06/03/25 Unknown History mometasone 0.1 % topical solution 1 applic topical PHAM LY PRN skin 06/03/25 06/03/25 Unknown History rash sacubitril 24 mg-valsartan 26 mg See Rx Instructions . Route .COMPLEX 06/03/25 06/03/25 06/03/25 History tablet (Entresto) triamcinolone acetonide 0.1 % 1 applic topical DAILY P RN skin 06/03/25 06/03/25 Unknown History topical cream rash allopurinol 100 mg tablet 200 mg (2 x 100 mg) PO DAILY #180 06/15/25 Unknown Rx tabs Allergies Allergy/AdvReac Type Severity Reaction Status Date / Time adhesive tape Allergy Intermediate rash, Verified 03/03/25 10:26 itch, DERMABOND 2-octyl cyanoacrylate Allergy ALGY-Bliste Verified 03/03/25 10:26 r DANNY Inhibitors Allergy ADR-Cough Verified 03/03/25 10:26 povidone-iodine (From Allergy ALGY-Bliste Verified 03/03/25 10:26 Betadine) r propranolol (From Inderal [place]) Allergy ADR-Depress Verified 03/03/25 10:26 ion soap (From Betadine) Allergy ALGY-Bliste Verified 03/03/25 10:26 r verapamil Allergy ADR-Headach Verified 03/03/25 10:26 e Current Medications Generic Name Dose Route Start Last Admin Trade Name Freq PRN Reason Stop Dose Admin Hydrocodone Bitart/Acetaminophen 1 tab 06/03/25 20:53 06/15/25 23:20 Hydrocodone-Acetaminophen 5-325 Mg Tablet PO 1 tab Q6H PRN Administration PAIN Budesonide 0.5 mg 06/06/25 20:00 06/16/25 07:52 Budesonide 0.5 Mg/2 Ml Neb INHALATION 0.5 mg BID.RESPIRATORY MAL Administration Carbidopa/Levodopa 1 each 06/03/25 21:00 06/16/25 04:59 Carbidopa-Levodopa Er 50-200mg Tablet PO 1 each TID MAL Administration Fidaxomicin 200 mg 06/15/25 17:00 06/16/25 04:58 Fidaxomicin 200 Mg Tablet PO 06/25/25 05:01 200 mg BID MAL Administration Protocol Fluticasone Propionate 2 spray 06/06/25 21:00 06/15/25 20:21 Fluticasone Nasal [place] 16gm Btl INTRANASAL 2 spray BEDTIME MAL Administration Furosemide 60 mg 06/13/25 10:00 06/16/25 09:59 Furosemide 10 Mg/Ml Sdv 10ml IVP 60 mg Q12H MAL Administration Gabapentin 200 mg 06/14/25 21:00 06/15/25 20:20 Gabapentin 100 Mg Capsule PO 200 mg BEDTIME MAL Administration Heparin Sodium (Porcine) 5,000 unit 06/10/25 08:45 06/16/25 08:15 Heparin 5,000 Unit/Ml Inj 1 Ml SUBCUT 5,000 unit Q12H MAL Administration Piperacillin Sod/Tazobactam 50 mls @ 12.5 mls/hr 06/11/25 19:30 06/16/25 07:39 Sod 3.375 gm/ Sodium Chloride IV 06/16/25 23:59 12.5 mls/hr Q12H MAL Administration Ipratropium [place] 0.5 mg 06/10/25 20:00 06/16/25 07:52 Ipratropium 0.5 Mg/2.5 Ml Neb INHALATION 0.5 mg Q6H.RESP MAL Administration Levalbuterol HCl 0.63 mg 06/10/25 20:00 06/16/25 07:52 Levalbuterol 0.63 Mg/3 Ml Neb INHALATION 0.63 mg Q6H.RESP MAL Administration Levothyroxine Sodium 200 mcg 06/07/25 05:00 06/16/25 04:59 Levothyroxine 200 Mcg Tablet PO 200 mcg DAILY MAL Administration Metoclopramide HCl 5 mg 06/16/25 05:06 06/16/25 05:15 Metoclopramide 5 Mg/Ml Sdv 2 Ml IVP 5 mg Q6H PRN Administration NAUSEA AND VOMITING Montelukast Sodium 10 mg 06/03/25 21:00 06/15/25 20:21 Montelukast Sodium 10 Mg Tablet PO 10 mg BEDTIME MAL Administration Ondansetron HCl 4 mg 06/03/25 17:46 06/16/25 01:08 Ondansetron 2 Mg/Ml Sdv 2 Ml IVP 4 mg Q8H PRN Administration vomiting, or N/V if npo Pantoprazole Sodium 40 mg 06/04/25 05:00 06/16/25 04:[address] 40 Mg Tablet PO 40 mg DAILY MAL Administration Prednisone 40 mg 06/14/25 05:00 06/16/25 04:58 Prednisone 20 Mg Tablet PO 40 mg DAILY MAL Administration Trazodone HCl 50 mg 06/12/25 08:58 06/15/25 20:20 Trazodone 50 Mg Tablet PO 50 mg BEDTIME PRN Administration RESTLESSNESS PFSH Acute 2 PFSH: Medical History Lumbar stenosis with neurogenic claudication Nondisplaced fracture of neck of fifth metacarpal bone, left hand, initial encounter for closed fracture Sleep apnea treated with continuous positive airway pressure (CPAP) Episcleritis History of iron deficiency anemia Anxiety and depression Peripheral neuropathy Hypothyroidism GERD (gastroesophageal reflux disease) Morbid obesity with BMI of 45.0-49.9, adult Stenosis of cervical spine with myelopathy Cervical disc disorder with myelopathy of mid-cervical region Intervertebral disc disorder with radiculopathy of lumbosacral region Sleep apnea Dyslipidemia Obesity Nonischemic cardiomyopathy Essential hypertension Hyperuricemia CKD (chronic kidney disease) MGUS (monoclonal gammopathy of unknown significance) Degenerative lumbar spinal stenosis Erosive osteoarthritis Gout, arthritis Surgical History Status post surgical removal of malignant neoplasm of skin Basal cell carcinoma History of lumbar laminectomy (05/13/21) Lumbar laminectomy at L4 and L5 with L4/5 interbody fusion and with L5/S1 interbody fusion History of surgical removal of ganglion cyst right wrist History of knee joint replacement Left 06/2018 right 12/2017 Hx of foot surgery Right x2-sub talur fusoin and arthrodesis Hx of hysterectomy Hx of bilateral oophorectomy with Dr. Watts at 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, 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 she wants full code including brief intubation but not prolong life support as discussed with Skinny Mckeon MD on 06/03/2025 and in the presence of her [id number] Talisha Lynn Household members: spouse Marital status: Current occupational status: retired 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 Vitals/I&O/Wt Last Vital Signs Temp 96.8 F L 06/16/25 06:11 Pulse 99 06/16/25 07:54 Resp 18 06/16/25 07:54 BP 98/64 06/16/25 06:00 Pulse Ox 93 06/16/25 07:54 O2 Del Method Nasal Cannula 06/16/25 07:54 O2 Flow Rate 2 06/16/25 07:54 FiO2 21 06/07/25 20:50 06/15/25 06/16/25 06/16/25 22:59 06:59 14:59 Intake Total 770 / 2020 1010 / 2020 0 / 0 Output Total 3000 / 3000 Balance -2230 / -980 1010 / -980 0 / 0 Weight last 48 hrs Weight 230 lb 6.129 oz Physical Exam 2 Const: COMMON NORMALS: no acute distress and patient oriented x3 Chest: COMMONS NORMALS: normal inspection of the chest and normal palpation of entire chest wall CHEST: Yes Symmetrical chest wall rise Resp: COMMON NORMALS: normal respiratory effort, No retractions, No use of accessory muscles and clear to auscultation bilaterally EFFORT & INSPECTION: Yes symmetric chest movement AUSCULTATION: clear to auscultation bilaterally Cardio: COMMON NORMALS: S1 normal heart sound present, S2 normal heart sound present, No gallops present (Cardio), No clicks present (Cardio), No murmurs present (Cardio) and No rub (Cardio) RHYTHM: abnormal rhythm irregularly irregular HEART SOUNDS: S1 normal heart sound present and S2 normal heart sound present PERIPHERAL PULSES: radial pulses present, posterior tibial pulses present and dorsalis pedis present Neuro: COMMON NORMALS: patient oriented x3 and moves all extremities Psych: COMMON NORMALS: mental status grossly normal and cooperative Urinary Catheter Management: Romeo: Cath Placed During This Visit: yes Reason for Continuing Indwelling Catheter: Accurate Measurement of Urinary Output in Critically Ill Patients Urinary Catheter Date of Insertion: 06/03/25 Urinary Catheter Time of Insertion: 18:38 Data 06/16/25 04:19 06/16/25 04:19 A&P Assessment and plan 1. Atrial fibrillation with RVR: 2. Acute on chronic combined systolic and diastolic congestive heart failure: 3. Nonischemic cardiomyopathy: 4. Essential hypertension: 5. Acute renal failure with oliguria: 6. Morbid obesity with BMI of 45.0-49.9, adult: 7. Rhinovirus infection: 8. C. difficile diarrhea: 9. Sleep apnea treated with continuous positive airway pressure (CPAP): 10. Pneumonia of both lower lobes due to infectious organism: Plan: She remains in atrial fibrillation, with controlled ventricular rate back on amiodarone infusion. Recommend to continue, liver enzymes are improving with resolution of volume overload. With addressing her infectious sources and volume overload, rate control may be improved. Given her very low EF, loss of atrial kick with atrial fibrillation caused significant hypotension. We are limited in medications we can utilize both by blood pressure and by the kidney failure. If she does not convert to sinus rhythm by tomorrow we will need to consider anticoagulation, possible KT guided cardioversion if she still has high ventricular rates even on amiodarone infusion. CPAP is ordered, use at night or during sleep is essential. PDMP PDMP Reviewed: Not Reviewed Coding Level of Care Code Acute Code for [facility] Fwd Diagnoses Atrial fibrillation with RVR I48.91 Acute on chronic combined systolic and diastolic congestive heart failure I50.43 Nonischemic cardiomyopathy I42.8 Essential hypertension I10 Acute renal failure with oliguria N17.9; R34 Morbid obesity with BMI of 45.0-49.9, adult E66.01; Z68.42 Rhinovirus infection B34.8 C. difficile diarrhea A04.72 Sleep apnea treated with continuous positive airway pressure (CPAP) G47.30 Pneumonia of both lower lobes due to infectious organism J18.9 Pneumonia type: due to unspecified organism Laterality: bilateral Lung location: lower lobe of lung
[2025-06-16] MEDS: AMIODARONE HCL/D5W 900 MG/500 ML BAG 20 MG IV (10:35)
--- NOTE | 2025-06-16 10:39 | PC.NURSE ---
0925 Hung Normal Saline 1000ml bag to infuse at 75ml/hr and set volume to be infused at 500ml. nMAR not letting me adjust vtbi therefor not letting me administer it on the MAR, but is infusing.
--- NOTE | 2025-06-16 11:03 | P.PN_ITS ---
Subjective 2 Subjective: No acute events overnight. Laying comfortably in bed. Denies any nausea, vomiting, headache. Having episodes of diarrhea occasionally as per nursing staff. Tolerating CPAP well overnight. Heart rate stable. Currently on 2 L oxygen supplementation. Afebrile in last 24 hours. Medications: Reviewed: Yes Vitals/I&O/Wt Last Vital Signs Temp 96.8 F L 06/16/25 06:11 Pulse 99 06/16/25 07:54 Resp 18 06/16/25 07:54 BP 98/64 06/16/25 06:00 Pulse Ox 93 06/16/25 07:54 O2 Del Method Nasal Cannula 06/16/25 07:54 O2 Flow Rate 2 06/16/25 07:54 FiO2 21 06/07/25 20:50 06/15/25 06/16/25 06/16/25 22:59 06:59 14:59 Intake Total 770 / 1010 0 / 2019 0 / 0 Output Total 3000 / 3000 Balance -2229 / 1010 / -980 0 / 0 Weight last 48 hrs Weight 104.5 kg Physical Exam 2 Narrative: General: No acute distress, AO x3, chronically sick appearing, on CPAP nasal pillows HEENT: PERRLA, pupils bilaterally equal and reactive Chest: Bilateral bronchial breath sounds lower lung raymond, decreased air entry all over, fine crackles in the right chest CVS: S1-S2 regular, no murmurs, no tachycardia, no gallops, no rubs Abdomen: Soft, nontender, no organomegaly, bowel sounds present Neuro: No focal deficits, no facial deformity, AO x3, power 5/5 in all limbs Urinary Catheter Management: Romeo: Cath Placed During This Visit: yes Reason for Continuing Indwelling Catheter: Accurate Measurement of Urinary Output in Critically Ill Patients Urinary Catheter Date of Insertion: 06/03/25 Urinary Catheter Time of Insertion: 18:38 Data 06/16/25 04:19 06/16/25 04:19 A&P Assessment and plan 1. Acute on chronic respiratory failure with hypoxia: 2. Acute renal failure with oliguria: Romeo in place and continue diuretics. Serum bicarb 28 off bicarbonate replacement fluid patient is hard to diurese in part due to hypotension. Midodrine started yesterday but blood pressure still systolic 103. Will increase midodrine to 10 mg 3 times daily 3. Pneumonia of both lower lobes due to infectious organism: 4. C. difficile diarrhea: 5. Atrial fibrillation with RVR: 6. Wide-complex tachycardia: 7. Uremia: 8. Nonischemic cardiomyopathy: 9. Acute on chronic combined systolic and diastolic congestive heart failure: EF 25 to 35% based on prior nuclear images and echo. Continue home CPAP for sleep Repeat echocardiogram showed EF 30% and grade 2/4 diastolic dysfunction no pericardial effusion. Severe aortic valve calcification noted with moderate aortic valve stenosis and moderate mitral valve regurg 10. Mild aortic stenosis: 11. Sleep apnea treated with continuous positive airway pressure (CPAP): Resume home APAP on her ResMed 11 machine 12. Esophageal dysphagia: Esophagram shows esophageal spasm and moderate-sized hiatal hernia and esophagus is displaced will need to further image for possible goiter or mass. Will allow contrast from barium swallow to pass and plan on CT of the chest abdomen pelvis to include the neck on Sunday Patient also has a right kidney mass to be evaluated. She needs to pass her stool regarding barium swallow before proceeding with repeat imaging 13. Hypothyroidism: TSH was 9 so I raise the levothyroxine. Notably patient had possible goiter on chest x-ray based on displacement of esophagus on barium swallow. CT scan ordered for the morning. We are awaiting passage of barium because that had compromised images of the kidney on last CT scan 14. Acute on chronic renal insufficiency: 15. Elevated d-dimer: 16. Rhinovirus infection: 17. MGUS (monoclonal gammopathy of unknown significance): Plan: Plan for the day: Underwent dialysis yesterday. Responded well. Patient seems slightly dehydrated today. Will start on gentle hydration with NS at 75 cc/h for 500 cc. Back in A-fib with RVR overnight. Will start on amiodarone drip after 150 mg IV bolus. Will continue amiodarone drip for 0.5 for now. Continue midodrine. Increase dose to 10 mg 3 times daily. Given concerns for Parkinson's as an outpatient will add pyridostigmine 60 mg twice daily to help with orthostatic hypotension for now. Continue with nebulization treatment. Prednisone to 5-day course. Will consult cardiology for further recommendations. Out of bed to chair. Physical therapy. Incentive spirometry. Oxygen supplementation keeping saturation over 90%. Given concerns for significant C. difficile for now we will switch from Dificid to oral vancomycin 500 mg every 6 hourly. Patient agreeable to transition to SNF. Goals of care discussion: Had detailed goals of care discussion with patient and daughter at bedside. All the questions were answered. Guarded prognosis. Continue care at ICU for now. Discharge plan: Given significant CHF, EF of 20%, respiratory failure, new dialysis, deconditioning patient would benefit from possible discharge to SNF for further rehabitation and monitoring. Patient for now is agreeable. Case management alerted. Full code Renal dialysis diet Protonix for PUD prophylaxis Heparin for DVT prophylaxis PDMP PDMP Reviewed: Not Reviewed Attestations 2 Medical Necessity Statement*: Requires further hospitalization for management of A-fib with RVR, hypotension in setting of congestive heart failure with EF of 20%, ANDER on CKD with new dialysis, C. difficile colitis, respiratory failure with CHF and rhinovirus pneumonia Critical Care Time: The high probability of a clinically significant, sudden or life threatening deterioration of the patient's [cardiac, GI, ID, renal, pulmonary] system(s) required my full and direct attention, intervention and personal management. The critical care time is as shown. This time is in addition to time spent performing any reported procedures but includes the following: [x] Data and vital sign review and interpretation [x] Patient assessment, examination and intervention [x] Documentation [x] Medication orders and management Critical Care Time (min): 70 Coding Level of Care Code Critical Care >/= 30 minutes Critical care time (in minutes): 70 The high probability of a clinically significant, sudden or life threatening deterioration, as referenced in this documentation, required my full and direct attention, intervention and personal management. The critical care time shown is in addition to time spent performing any reported separately billable procedures and includes the following: [x] Data and vital sign review and interpretation [x ] Patient assessment, examination and intervention [x] Medication orders and management [x] Patient/Family updates as able [x] Care Coordination and Documentation. Other Coding Information This patient has a high probability of clinically significant, sudden or life threatening deterioration of the patient's (neurological/pulmonary/cardiac/renal/ID/endocrine) systems required my full, direct attention, the highest level of physician preparedness for urgent intervention and personal management. I managed/supervised life or organ supporting interventions that required frequent physician assessment. I devoted my full attention in the ICU to the direct care of this patient for the period of time indicated above. Time I spent with family or surrogate(s) is included only if the patient was incapable of providing necessary information or participating in decision making. This time includes the following services provided: Telemetry review Hemodynamic interpretation, assessment and management Review and interpretation of CXR Review and interpretation of lab values Review and interpretation of microbiologic data and culture results Review of medications and administration Review and interpretation of Nutrition requirements and management Discussion of management with other consultants and services Clinical update to family members Diagnoses Acute on chronic respiratory failure with hypoxia J96.21 Chronicity: acute on chronic Acute renal failure with oliguria N17.9; R34 Pneumonia of both lower lobes due to infectious organism J18.9 Pneumonia type: due to unspecified organism Laterality: bilateral Lung location: lower lobe of lung C. difficile diarrhea A04.72 Atrial fibrillation with RVR I48.91 Wide-complex tachycardia R00.0 Uremia N19 Nonischemic cardiomyopathy I42.8 Acute on chronic combined systolic and diastolic congestive heart failure I50.43 Mild aortic stenosis I35.0 Sleep apnea treated with continuous positive airway pressure (CPAP) G47.30 Esophageal dysphagia R13.19 Hypothyroidism E03.9 Acute on chronic renal insufficiency N28.9; N18.9 Elevated d-dimer R79.89 Rhinovirus infection B34.8 MGUS (monoclonal gammopathy of unknown significance) D47.2
--- NOTE | 2025-06-16 11:09 | PC.NURSE ---
0905 Patient only has one IV in, and need to start Amniodarone drip, so started a new #22 IV in right forearm with one attempt, patient rober well. Unable to chart, keeps saying duplicate. Run Aminodarone fluids in right forearm IV site.
--- NOTE | 2025-06-16 11:18 | P.PN_ITS ---
Subjective 2 Subjective: no new c/o Medications: Reviewed: Yes Vitals/I&O/Wt Last Vital Signs Temp 96.8 F L 06/16/25 06:11 Pulse 99 06/16/25 07:54 Resp 18 06/16/25 07:54 BP 98/64 06/16/25 06:00 Pulse Ox 93 06/16/25 07:54 O2 Del Method Nasal Cannula 06/16/25 07:54 O2 Flow Rate 2 06/16/25 07:54 FiO2 21 06/07/25 20:50 06/15/25 06/16/25 06/16/25 22:59 06:59 14:59 Intake Total 770 / 1010 1009 100 / 100 Output Total 3000 / 3000 Balance -2229 1010 / 980 100 / 100 Weight last 48 hrs Weight 104.5 kg Physical Exam 2 Narrative: Obese lady in bed using CPAP, she appears comfortable in bed. Vital signs noted. HEENT normocephalic/atraumatic. Neck obese Lungs -dull bases bilateral Heart positive S1-S2. Abdomen is soft positive bowel sounds. Extremities 1+ edema bilaterally. Neuro awake alert and oriented, moves all extremities follows commands. Urinary Catheter Management: Romeo: Cath Placed During This Visit: yes Reason for Continuing Indwelling Catheter: Accurate Measurement of Urinary Output in Critically Ill Patients Urinary Catheter Date of Insertion: 06/03/25 Urinary Catheter Time of Insertion: 18:38 Data 06/16/25 04:19 06/16/25 04:19 A&P Assessment and plan 1. Acute renal failure with oliguria: 79-year-old lady with 1. combined systolic and diastolic heart failure EF of approximately 30% and grade 2 out of 4 diastolic dysfunction and moderate mitral regurgitation moderate aortic valve stenosis. Patient developed acute on chronic renal failure baseline creatinine 1.5 mg/dL in February 2025. She follows with [facility]. Patient has known positive serum protein electrophoresis. Patient is now here with ANDER felt to be either ATN versus cardiorenal syndrome. Patient initiated dialysis on June 09, 2025. please ensure that she has an outpatient dialysis spot. The patient feels better with dialysis. Patient's blood pressures dropped on days without it when she becomes volume overloaded. 2. Increased LFTs. Liver ultrasound normal size the liver. - Liver function test are improving today 3. obstructive sleep apnea. On CPAP 4.Combined systolic and diastolic dysfunction as per cardiology. Would consider adding Entresto or an DANNY or ARB. Given low EF I am okay with systolic blood pressure 100 hyponatremia. Likely from volume overload. Continue dialysis 5. Mild leukocytosis monitor 6. Mild anemia hemoglobin 9.9 will check B12 folate level 7. Monitor respiratory alkalosis with dialysis 8. Last week TSH 1.12 9. PTH of 134. Repeat in a month Patient has known MGUS and a very high free lambda. Would consider renal biopsy when stable ( asked ot to see [facility] to set up ) -Patient was seen and examined with the aid of a nurse using audiovisual equipment. This was a telehealth visit the patient consented to telehealth and to dialysis. Plan: Continue dialysis attempt to discharge from ICU. PDMP PDMP Reviewed: Not Reviewed Attestations 2 Medical Necessity Statement*: per sana Coding Level of Care Code Acute Code for Chg Fwd Diagnoses Acute renal failure with oliguria N17.9; R34
--- NOTE | 2025-06-16 12:09 | PC.NURSE ---
1203 Patient wanted to try the veggies off her lunch tray. Did, but became nauseated and vomited a small amount. Will wait a little while before giving po meds, hoping she can keep them down.
--- NOTE | 2025-06-16 13:01 | PC.NURSE ---
1250 Patient thought she could tolerate Vanco and Midadrine, but Levadopa tends to nausea her anyway, so will wait till stomach feels better to take it.
--- NOTE | 2025-06-16 13:04 | PC.NURSE ---
1130 PT here and we attempted to get up to chair and do orthostatic pressures during that process. Just sitting up on edge of bed made her very dizzy, and blood pressure dropped from 103/72 to 57/45 and then 71/43. Only complaint was very dizzy even after sitting 5-7 minutes still, blood pressure trying to take this entire time. PT helped her stand for about 20 seconds after not feeling as dizzy. Set back down and lowered head of bed and got blood pressure to come back up to 100/43. Patient very tired but rober fair.
--- NOTE | 2025-06-16 15:53 | PC.OT ---
OT TREATMENT ATTEMPTED. PATIENT ON HEATED HIGH FLOW AND LYING FLAT IN BED AT THIS TIME. PATIENT SLEEPING SOUNDLY.
[2025-06-16] MEDS: fluticasone nasal spray 16gm Btl 2 SPRAY INTRANASAL (20:31)
[2025-06-17] VITALS (68 sets, daily range): BP systolic 77–130; BP diastolic 52–85; PULSE 66–98; RESP 3–28; TEMP 36.3–36.8; O2SAT 85–100
--- NOTE | 2025-06-17 01:28 | PC.NURSE ---
Received order from Dr Martinez to hold patient's fluids tonight. See MAR.
[2025-06-17] MEDS: carbidopa-levodopa ER 50-200mg Tablet 1 EACH PO ×3 (04:34→20:02)
[2025-06-17] MEDS: calcium chloride 10% Syr 10 mL 1 GM IVP (04:42)
[2025-06-17] MEDS: EPINEPHrine 0.1 mg/mL SYR 10 mL 1 MG IVP (04:42)
--- NOTE | 2025-06-17 04:45 | ECG_ITS ---
[facility] Date: 2025-06-17 Pat Name: Maryjo Lynn Department: Room: [facility]08 Gender: Female Manager Medicare: : 1945 Requested By: Christos Martinez Order Number: [id number] Scott MD: Tereso Gibson M.D. Measurements Intervals [place] Rate: 91 P: 29 IL: 153 QRS: 37 QRSD: 141 T: 0 QT: 322 QTc: 396 Interpretive Statements SINUS RHYTHM WITH premature atrial contractions LEFT BUNDLE BRANCH BLOCK [120+ ms QRS DURATION, 80+ ms Q/S IN V1/V2, 85+ ms R IN I/aVL/V5/V6] Compared to ECG 06/15/2025 16:40:11 Left bundle-branch block now present Atrial fibrillation no longer present Electronically Signed On 06-17-2025 20:08:55 PIN SORTER AND BAGGER by Tereso Gibson M.D. [id number]
--- NOTE | 2025-06-17 04:45 | ECG_ITS ---
[facility] Date: 2025-06-17 Pat Name: Maryjo Lynn Department: Room: [facility] Gender: Female Underwear Trimmer: : 1945 Requested By: Christos Martinez Order Number: [id number] Scott MD: Tereso Gibson M.D. Measurements Intervals [place] Rate: 91 P: 29 [place]: 153 QRS: 37 QRSD: 141 T: 0 QT: 322 QTc: 396 Interpretive Statements SINUS RHYTHM WITH SINUS ARRHYTHMIA POSSIBLE RIGHT VENTRICULAR CONDUCTION DELAY [RSR (QR) IN V1/V2] LEFT BUNDLE BRANCH BLOCK [120+ ms QRS DURATION, 80+ ms Q/S IN V1/V2, 85+ ms R IN I/aVL/V5/V6] INTERPRETATION BASED ON A DEFAULT AGE OF 40 YEARS Compared to ECG 06/15/2025 16:40:11 Left bundle-branch block now present Atrial fibrillation no longer present Electronically Signed On 06-17-2025 20:07:48 AIR ANALYSIS ENGINEERING TECHNICIAN by Tereso Gibson M.D. [id number]
--- NOTE | 2025-06-17 04:52 | XRR_ITS ---
PROCEDURE INFORMATION: Exam: XR Chest Exam date and time: 06/17/2025 6:01 AM Age: 79 years old Clinical indication: Shortness of breath; Additional info: SOB TECHNIQUE: Imaging protocol: Radiologic exam of the chest. Views: 1 view. COMPARISON: CR XR chest 1V portable [id number] 06/15/2025 10:32 AM FINDINGS: Tubes, catheters and devices: Right IJ dialysis catheter unchanged. Lungs: Increased mild pulmonary vascular congestion/fluid overload. Pleural spaces: Unremarkable. No pleural effusion. No pneumothorax. Heart/Mediastinum: Mild cardiomegaly. Bones/joints: Bilateral reverse total shoulder arthroplasty. XR/XR chest 1V portable [id number] IMPRESSION: 1. Mild cardiomegaly. 2. Increased mild pulmonary vascular congestion/fluid overload.
[2025-06-17 04:53] LABS: ABG PCO2 46.4 mmHg (35-45); ABG PH Result 7.31 (7.35-7.45); Alveolar-Arterial Oxygen Gradi 4.4 mmHg (5-10); Arterial Blood Gas Hematocrit 33.5 % (37-47); Blood Gas LPM 15.0 %; Blood Gas Sample Site Brachial, right; Blood Gas Sample Type Arterial; Carboxyhemoglobin 0.8 %THgb (0.4-20.1); Glucose Level-ABG 180.0 mg/dL (70-115); HCO3 ABG 23.2 mmol/L (22-26); Ionized Calcium Level - ABG 1.4 mmol/L (1.1-1.4); Methemoglobin 0.6 % (0.4-1.5); Oxygen Saturation ABG 89.3; PO2 ABG 59.0 mmHg (80.0-100.0); Potassium Level - ABG 4.5 mmol/L (3.5-5.0); Sodium Level - ABG 134.0 mmol/L (131-143)
[2025-06-17 04:54] LABS: Hematocrit 32.9 % (36-47); Hemoglobin 10.70 g/dL (11.27-16.99); Mean Corpuscular HGB Conc 32.5 g/dL (30-55); Mean Corpuscular Hemoglobin 35.1 pg (27-33); Mean Corpuscular Volume 107.9 fl (85-98); Nucleated Red Blood Cells % 9.2 %; Platelet Count 224 10^3/cmm (157-399); Red Blood Count 3.05 10^6/uL (3.85-5.65); White Blood Count 19.23 10^3/uL (3.29-11.43)
--- NOTE | 2025-06-17 04:57 | USR_ITS ---
PROCEDURE INFORMATION: Exam: US Duplex Lower Extremity Veins, Bilateral Exam date and time: 06/17/2025 5:29 PM Age: 79 years old Clinical indication: Screening exam; R/O dvt; Additional info: Swelling, dialysis @ 1430 TECHNIQUE: Imaging protocol: Real-time duplex ultrasound of the bilateral extremities with 2-D mak scale, color Doppler flow and spectral waveform analysis including responses to compression and other maneuvers (when performed) with image documentation. Complete exam focused on the lower extremity veins. COMPARISON: US renal BI* [id number] 06/04/2025 5:30 PM FINDINGS: Right deep veins: The common femoral, femoral, proximal profunda femoral and popliteal veins are patent without thrombus. Normal Doppler waveforms. Normal compressibility and/or augmentation response. Left deep veins: The common femoral, femoral, proximal profunda femoral and popliteal veins are patent without thrombus. Normal Doppler waveforms. Normal compressibility and/or augmentation response. Superficial veins: Greater saphenous veins at the saphenofemoral junctions are patent bilaterally without thrombus. Soft tissues: Unremarkable. US/[place] [id number] IMPRESSION: No evidence of deep vein thrombosis.
--- NOTE | 2025-06-17 04:57 | USCV_ITS ---
Leah Maryjo Age: 79 Gender: F : 1945 Exam Date: 06/17/2025 12:59 Ordering Phys: Christos Martinez MD Technologist: Exam Location: [facility] [place] Indication: mi BP: 111 / 62 HR: Rhythm: Sinus Technical Quality: Adequate MEASUREMENTS (Male / Female) Normal Values 2D ECHO LV Diastolic Diameter PLAX 5.8 cm 4.2 - 5.9 / 3.9 - 5.3 cm IVS Diastolic Thickness 1.1 cm 0.6 - 1.0 / 0.6 - 0.9 cm IVS Systolic Thickness 1.5 cm LVPW Diastolic Thickness 1.2 cm 0.6 - 1.0 / 0.6 - 0.9 cm LVPW Systolic Thickness 1.5 cm LVOT Diameter 2.1 cm LV Ejection Fraction 2D Teich 19.5 % LV Ejection Fraction MOD 4C 30.3 % LV Ejection Fraction MOD 2C 11.4 % LV Ejection Fraction 2C AL 12.2 % LA Diameter 4.0 cm RA Systolic Volume 4C AL 98.3 ml RA Systolic Volume 4C MOD 93.3 ml Aorta at Sinotubular Diameter 2.9 cm FINDINGS Left Ventricle Right Ventricle Right Atrium Left Atrium IA Septum Mitral Valve Aortic Valve Tricuspid Valve Pulmonic Valve Pericardium Aorta IVC CONCLUSIONS Technically limited quality echocardiogram because of poor ultrasonic windows. LV systolic function is severely reduced with EF of 15-20%. Severe global hypokinesis. Chava Harris MD (Electronically Signed) Final Date: 18 June 2025 09:49 S
--- NOTE | 2025-06-17 05:05 | PM.CCNAC ---
Critical Care Event Note The high probability of a clinically significant, sudden or life threatening deterioration of the patient's [] system(s) required my full and direct attention, intervention and personal management. The critical care time is as shown. This time is in addition to time spent performing any reported procedures but includes the following: [x] Data and vital sign review and interpretation [x] Patient assessment, examination and intervention [x] Documentation [x] Medication orders and management Critical Care Time Code activated: Yes Critical Care Time (min): 35 Additional information about critical care time: -at 4:36 AM 06/17/2025 patient had V-fib arrest - No complaints of chest pain prior to this - She did not have a pulse ? She received defibrillation of 200 J, after this she had no pulse, was agonal - Had 1 amp of epi, 1 g calcium, 1 amp of bicarb ? She had successful ROSC at 0443 - At ROSC, she was alert oriented x 2, following all commands, breathing on her own, she did have mottling of bilateral lower extremities - As she was breathing on her own, no evidence of respiratory distress, good chest rise, good breath sounds bilateral lung raymond, no evidence of respiratory distress, decision was made to not intubate her as she was following commands -Patient was on amiodarone at 0.5, increased to 1 mg - She was then placed on BiPAP -Blood sugar 114 - ABG, CBC, CMP and EKG ordered - EKG shows new onset left bundle branch block - Discussed case with cardiology, patient is V-fib arrest, she has no complaints of chest pain, successful ROSC, new onset LBBB - Cardiology recommended to trend troponins, possible coronary angiography based on clinical progress, but no acute indication - I had a discussion with Maryjo, she is alert oriented x 3, follow commands, on BiPAP she is comfortable, - She started to perfuse better, mottling has significantly resolved - We discussed her goals of care, she wants to remain a full code, agreeable to defibrillation, and CPR - She does not after CPR her chest is hurting her we discussed intubation, she wants to avoid intubation as best as possible, as she feels comfortable in the BiPAP, would like to avoid it as much as possible - Discussed we will see whether - ABG shows pH 7.31, pCO2 46.4, pO2 59, on 15 L nonrebreather - Calcium is 4.6, - Will give her a gram of mag as mag is pending Discussed with Maryjo my plan is to do a stat CT angiogram of the chest,-to rule out a pulmonary embolism, cardiac echo ordered, venous ultrasound - Will trend her troponins, monitor her EKGs - If she does have any chest pain she might need urgent cardiac cath which she is not agreeable to - But if CT angiogram is unrevealing, then we will certainly have to proceed with cardiac catheterization - Discussed with her that also possibility could be her V-fib from her cardiomyopathy EF of 20% Coding Level of Care Code Acute Code for Chg Fwd
[2025-06-17 05:09] LABS: Albumin Level 3.9 g/dL (3.5-5.2); Alkaline Phosphatase 289 U/L (35-105); Anion Gap 23.6 (5-19); Aspartate Amino Transferase 128 U/L (0-32); Blood Urea Nitrogen 71 mg/dL (8-23); Calcium 9.2 mg/dL (8.5-10.5); Carbon Dioxide 22 mmol/L (22-29); Chloride 92 mmol/L (98-107); Creatinine Clr Calc Pharmacy 14.5610; Globulin 2.0 g/dL (1.3-4.6); Glucose 130 mg/dL (65-115); Osmolality Calculated 299 mOsm/kg (285-295); Potassium 4.6 mmol/L (3.5-5.1); Sodium 133 mmol/L (136-145); Total Protein 5.9 g/dL (6.6-8.7)
[2025-06-17 05:13] LABS: Troponin(5th) Baseline 279 ng/L (0-10)
[2025-06-17] MEDS: magnesium sulfate premix 1 GM/100 ML PIGGYBACK IV (05:15)
--- NOTE | 2025-06-17 05:21 | ECG_ITS ---
[facility] Test Date: 2025-06-17 Pat Name: Maryjo Lynn Department: Room: [facility]08 Gender: Female Commissioned Police Officer: : 1945 Requested By: Christos Martinez Order Number: [id number] Tyler MD: Chava Harris M.D. Measurements Intervals Jean Rate: 79 P: 115 NC: 168 QRS: 105 QRSD: 137 T: -60 QT: 377 QTc: 434 Interpretive Statements SINUS RHYTHM INTRAVENTRICULAR CONDUCTION DELAY [130+ ms QRS DURATION] SEPTAL MYOCARDIAL INFARCTION , OF INDETERMINATE AGE [40+ ms Q WAVE IN V1/V2] LATERAL MYOCARDIAL INFARCTION , OF INDETERMINATE AGE [40+ ms Q WAVE AND/OR ST/T ABNORMALITY IN I/aVL/V5/V6] Compared to ECG 06/15/2025 16:40:11 Atrial fibrillation no longer present Myocardial infarct finding still present Electronically Signed On 06-19-2025 19:54:37 INVASIVE CARDIOVASCULAR TECHNOLOGIST by Chava Harris M.D. [email or web address] [id number]
[2025-06-17] MEDS: heparin drip 25,000 UNIT/500 ML PREMIX 29 UNIT IV (05:27)
[2025-06-17 05:41] LABS: Magnesium 2.2 mg/dL (1.7-2.3)
[2025-06-17 06:05] LABS: Alanine Aminotransferase 58 U/L (0-33)
[2025-06-17] MEDS: albumin 50 G/200 ML BAG 60 G IV (06:09)
[2025-06-17] MEDS: morphine 4 mg/mL SDV 1 mL 1 MG IVP ×2 (06:12→14:20)
--- NOTE | 2025-06-17 06:18 | PC.NURSE ---
In room with patient. Repositioned patient onto back and boosted. Gave patient morning PO medications, see MAR. Patient alert and talking, no distress, chest pain, or shortness of breath noted. At 0436, patient went into v-fib and CPR was initiated. At 0439, normal sinus rhythm noted before patient went back into v-fib. CPR resumed. Shock of 200 J administered. Agonal breathing and v-fib noted, CPR resumed. 1 amp of epi, 1 gram of calcium, and 50 meq of bicarb administered at 0441. Asystole noted at 0442 and CPR resumed. NSR at 0443. Patient placed on bipap at 100%. Alert x2 at the time. Patient voicing no complaints other than chest pain from CPR.
[2025-06-17 07:08] LABS: Troponin 5 2HR 294.8 ng/L (0-10); Troponin 5 2HR Delta 15.8 ABS# (0-10)
[2025-06-17] MEDS: AMIODARONE HCL/D5W 900 MG/500 ML BAG 33.33 MG IV (07:39)
[2025-06-17] MEDS: alteplase 1 mg/mL SDV 2 mL 2 MG INTRACATH (08:10)
--- NOTE | 2025-06-17 08:27 | PC.NURSE ---
Dr. Ruiz to bedside , discussed with patient about going to yard laborer. Patient consented. Notified Daughter and . Prepped for yard laborer.
--- NOTE | 2025-06-17 09:10 | ECG_ITS ---
[facility] Test Date: 2025-06-17 Pat Name: Maryjo Lynn Department: Room: [facility]08 Gender: Female Compliance Review Officer: : 1945 Requested By: Christos Martinez Order Number: [id number] Tyler MD: Chava Harris M.D. Measurements Intervals [place] Rate: 70 P: 59 [place]: 154 QRS: 58 QRSD: 118 T: 186 QT: 410 QTc: 443 Interpretive Statements SINUS RHYTHM LOW QRS VOLTAGE [QRS DEFLECTION < 0.5/1.0 mV IN LIMB/CHEST LEADS] SEPTAL MYOCARDIAL INFARCTION , OF INDETERMINATE AGE [40+ ms Q WAVE IN V1/V2] MODERATE T-WAVE ABNORMALITY, CONSIDER ANTEROLATERAL ISCHEMIA [-0.1+ mV T-WAVE IN V3-V6] Compared to ECG 06/17/2025 05:21:48 Low QRS voltage now present T-wave abnormality now present Possible ischemia now present Intraventricular conduction delay no longer present Myocardial infarct finding still present Electronically Signed On 06-19-2025 19:54:29 DATAPOWER DEVELOPER by Chava Harris M.D. [id number]
--- NOTE | 2025-06-17 10:52 | PC.NURSE ---
Vital signs interfaced from monitor for the time period of 06/16/25 to 06/17/25, no edits made.
--- NOTE | 2025-06-17 11:20 | PC.NURSE ---
To powerhouse laborer via bed with computer lab para professional RN and RT at bedside.
--- NOTE | 2025-06-17 11:35 | W.PM.OPSUD ---
Surgery/Procedure H&P Update DATE OF PROCEDURE: June 17, 2025 DATE H&P PERFORMED: 06/16/25 H&P UPDATE INFORMATION: I have reviewed H&P completed within last 30 days, I have examined patient prior to procedure and Changes to prior documentation as noted here CHANGES TO PREVIOUS DOCUMENTATION: Patient had VT/ Vfib cardiac arrest last night which was brief. Plan for coronary angiogram with possible PCI PREOP DIAGNOSIS: Ventricular tachycardia/ Ventricular fibrillation PRIMARY INDICATION FOR PROCEDURE: Ventricular tachycardia/ ventricular fibrillation PLANNED PROCEDURE: Left heart cath with possible percutaneous coronary intervention PATIENT REASSESSED PRIOR TO SEDATION, WITH NO CHANGE NOTED: Yes PHYSICAL EXAM: alert, oriented x 3 and regular rate & rhythm OTHER PERTINENT EXAM FINDINGS: Diminished air entry bilaterally AIRWAY EVAL/ANESTHESIA PLAN: normal airway, ASA IV, Local Anesthesia, Risks, benefits & alternatives of sedation and/or procedure discussed and Patient agrees to continue as planned ADDITIONAL INFORMATION: Moderate sedation
--- NOTE | 2025-06-17 12:09 | PM.PN ---
Subjective Subjective: Earlier today morning at around 5 AM patient had V-fib arrest for which she had defibrillation and had CPR for around 4 minutes. After achieving ROSC patient is hemodynamically stable, AO x 3, saturating well on BiPAP ventilation. Denies any weakness in arms or legs. Vitals/I&O/Wt Last Vital Signs Temp 98.2 F 06/17/25 08:00 Pulse 69 06/17/25 10:30 Resp 25 H 06/17/25 10:30 BP 110/64 06/17/25 10:30 Pulse Ox 94 06/17/25 10:30 O2 Del Method BiPAP 06/17/25 10:00 O2 Flow Rate 2 06/17/25 02:22 FiO2 40 06/17/25 10:00 06/16/25 06/17/25 06/17/25 22:59 06:59 14:59 Intake Total 750 / 900 376 / 1276 75.548 / 75.548 Output Total 0 / 50 Balance 750 / 850 376 / 1226 75.548 / 75.548 Weight last 48 hrs Weight 104.5 kg Physical Exam Narrative: General: No acute distress, AO x3, chronically sick appearing, on CPAP nasal pillows HEENT: PERRLA, pupils bilaterally equal and reactive Chest: Bilateral bronchial breath sounds lower lung raymond, decreased air entry all over, fine crackles in the right chest CVS: S1-S2 regular, no murmurs, no tachycardia, no gallops, no rubs Abdomen: Soft, nontender, no organomegaly, bowel sounds present Neuro: No focal deficits, no facial deformity, AO x3, power 5/5 in all limbs Urinary Catheter Management: Romeo: Cath Placed During This Visit: yes Reason for Continuing Indwelling Catheter: Accurate Measurement of Urinary Output in Critically Ill Patients Urinary Catheter Date of Insertion: 06/03/25 Urinary Catheter Time of Insertion: 18:38 Data 06/17/25 04:34 06/17/25 04:34 A&P Assessment and plan 1. Cardiac arrest with ventricular fibrillation: 2. Acute on chronic respiratory failure with hypoxia: 3. Acute on chronic combined systolic and diastolic congestive heart failure: EF 25 to 35% based on prior nuclear images and echo. Continue home CPAP for sleep Repeat echocardiogram showed EF 30% and grade 2/4 diastolic dysfunction no pericardial effusion. Severe aortic valve calcification noted with moderate aortic valve stenosis and moderate mitral valve regurg 4. Nonischemic cardiomyopathy: 5. Acute renal failure with oliguria: Romeo in place and continue diuretics. Serum bicarb 28 off bicarbonate replacement fluid patient is hard to diurese in part due to hypotension. Midodrine started yesterday but blood pressure still systolic 103. Will increase midodrine to 10 mg 3 times daily 6. Pneumonia of both lower lobes due to infectious organism: 7. C. difficile diarrhea: 8. Atrial fibrillation with RVR: 9. Wide-complex tachycardia: 10. Uremia: 11. Mild aortic stenosis: 12. Sleep apnea treated with continuous positive airway pressure (CPAP): Resume home APAP on her ResMed 11 machine 13. Esophageal dysphagia: Esophagram shows esophageal spasm and moderate-sized hiatal hernia and esophagus is displaced will need to further image for possible goiter or mass. Will allow contrast from barium swallow to pass and plan on CT of the chest abdomen pelvis to include the neck on Sunday Patient also has a right kidney mass to be evaluated. She needs to pass her stool regarding barium swallow before proceeding with repeat imaging 14. Hypothyroidism: TSH was 9 so I raise the levothyroxine. Notably patient had possible goiter on chest x-ray based on displacement of esophagus on barium swallow. CT scan ordered for the morning. We are awaiting passage of barium because that had compromised images of the kidney on last CT scan 15. Acute on chronic renal insufficiency: 16. Elevated d-dimer: 17. Rhinovirus infection: 18. MGUS (monoclonal gammopathy of unknown significance): 19. Goals of care, counseling/discussion: 20. Morbid obesity with BMI of 45.0-49.9, adult: Plan: Plan for the day: Concern for V-fib arrest started today morning. Currently AO x 3. Oxygen supplementation keeping saturation over 90%. Currently on BiPAP. Now transition to CPAP. Monitor electrolytes. Maintain magnesium around 2, potassium around 4. Plan for cardiac angiogram later in the day to rule out ischemic event. Appreciate troponin cycled. Patient denies any chest pain. D-dimer elevated to 18. Plan for CTA after cardiac angiogram. Continue with heparin drip for now. Depending on the results of CT and cardiac angiogram we will plan to discontinue heparin drip accordingly. Repeat echocardiogram. Given her low EF of 20%, V-fib arrest patient might need ICD placement. Will confirm with cardiology team. Plan for dialysis post cardiac angiogram and CTA. Goal blood pressure less than 140/90 mmhg mean over 65. Blood pressures still occasionally soft. Cortisol level appropriate. Continue with midodrine 10 mg 3 times daily, change pyridostigmine 60 mg thrice daily. If continues to remain soft will plan to add droxidopa in next 24 hours. Continue with oral vancomycin 500 mg Q6 hourly for C. difficile. Continue chronic medications. Out of bed to chair if possible after cardiac angiogram. PT/OT. Goals of care discussion Analgesia: Morphine 1 mg 4 hours Glycemic control: Not needed Nutrition: N.p.o. for now. Renal dialysis diet afterwards CODE STATUS: Full code PUD prophylaxis: Protonix DVT prophylaxis: Heparin drip for now. Continue with care at ICU This documentation was created by [employer] senior billing consultant software. Every effort was made to ensure accuracy of senior billing consultant. Any obvious errors or omissions should be clarified with the author of the document. Discharge plan: Given significant CHF, EF of 20%, respiratory failure, new dialysis, deconditioning patient would benefit from possible discharge to SNF for further rehabitation and monitoring. Patient for now is agreeable. Case management alerted. PDMP PDMP Reviewed: Not Reviewed Attestations Medical Necessity Statement*: Requires further hospitalization for management of V-fib arrest in a patient with EF of 20%, congestive heart failure, new dialysis, C. difficile colitis, requirement of ACS workup given new V-fib, respiratory failure in setting of recent rhinovirus infection. Critical Care Time: The high probability of a clinically significant, sudden or life threatening deterioration of the patient's [cardiac, pulmonary, ID, renal] system(s) required my full and direct attention, intervention and personal management. The critical care time is as shown. This time is in addition to time spent performing any reported procedures but includes the following: [x] Data and vital sign review and interpretation [x] Patient assessment, examination and intervention [x] Documentation [x] Medication orders and management Critical Care Time (min): 80 Coding Level of Care Code Critical Care >/= 30 minutes Critical care time (in minutes): 80 The high probability of a clinically significant, sudden or life threatening deterioration, as referenced in this documentation, required my full and direct attention, intervention and personal management. The critical care time shown is in addition to time spent performing any reported separately billable procedures and includes the following: [x] Data and vital sign review and interpretation [x] Patient assessment, examination and intervention [x] Medication orders and management [x] Patient/Family updates as able [x] Care Coordination and Documentation. Other Coding Information This patient has a high probability of clinically significant, sudden or life threatening deterioration of the patient's (neurological/pulmonary/cardiac/renal/ID/endocrine) systems required my full, direct attention, the highest level of physician preparedness for urgent intervention and personal management. I managed/supervised life or organ supporting interventions that required frequent physician assessment. I devoted my full attention in the ICU to the direct care of this patient for the period of time indicated above. Time I spent with family or surrogate(s) is included only if the patient was incapable of providing necessary information or participating in decision making. This time includes the following services provided: Telemetry review Non-mechanical Ventilation Hemodynamic interpretation, assessment and management Review and interpretation of CXR Review and interpretation of lab values Review and interpretation of microbiologic data and culture results Review of medications and administration Review and interpretation of Nutrition requirements and management Discussion of management with other consultants and services Clinical update to family members Diagnoses Cardiac arrest with ventricular fibrillation I46.9; I49.01 Acute on chronic respiratory failure with hypoxia J96.21 Chronicity: acute on chronic Acute on chronic combined systolic and diastolic congestive heart failure I50.43 Nonischemic cardiomyopathy I42.8 Acute renal failure with oliguria N17.9; R34 Pneumonia of both lower lobes due to infectious organism J18.9 Laterality: bilateral Lung location: lower lobe of lung Pneumonia type: due to unspecified organism C. difficile diarrhea A04.72 Atrial fibrillation with RVR I48.91 Wide-complex tachycardia R00.0 Uremia N19 Mild aortic stenosis I35.0 Sleep apnea treated with continuous positive airway pressure (CPAP) G47.30 Esophageal dysphagia R13.19 Hypothyroidism E03.9 Acute on chronic renal insufficiency N28.9; N18.9 Elevated d-dimer R79.89 Rhinovirus infection B34.8 MGUS (monoclonal gammopathy of unknown significance) D47.2 Goals of care, counseling/discussion Z71.89 Morbid obesity with BMI of 45.0-49.9, adult E66.01; Z68.42
--- NOTE | 2025-06-17 12:28 | PC.SOCIAL ---
IMM Update pg 2 of IMM updated and reviewed w/ patient. Copy provided and copy dated, initialed and placed in chart.
--- NOTE | 2025-06-17 12:33 | PM.PROC ---
Procedure Note: Date of procedure: 06/17/25 Pre-procedure diagnosis: Vtach/vfib Post-procedure diagnosis: other (Critical ostial to proximal RCA stenosis s/p PCI with 1 stent) Procedure: Critical ostial to proximal RCA stenosis s/p PCI with 1 stent. LAD and left circumflex arteries are patent Dual antiplatelet therapy with aspirin and plavix Performing Provider: Chava Harris Estimated blood loss (mL): 10 Complications: None Condition: critical Disposition: ICU Coding Level of Care Code Acute Code for Dudley Agarwal
--- NOTE | 2025-06-17 13:00 | CT_ITS ---
WS: [id number] CT CHEST ANGIOGRAPHY WITH REFORMATS HISTORY: elevated d-dimer/v-fib arrest TECHNIQUE: Contiguous axial images are obtained through the chest during arterial injection of intravenous contrast. Images are reconstructed to evaluate the pulmonary arteries. MIP imaging also reviewed. All CT scans at [facility] use at least one of these dose optimization techniques: automated exposure control; mA and/or kV adjustment per patient size (includes targeted exams where dose is matched to clinical indication); or iterative reconstruction. CONTRAST: Omnipaque 350; 100 mL IV. DLP: 525.64 mGy.cm COMPARISON: 06/10/2025 Good opacification of the pulmonary arteries. No pulmonary emboli identified. Beyond the segmental branches the opacification is limited by adjacent airspace disease. There is no central pulmonary emboli. Heart is moderately enlarged. No definite RIGHT heart strain. No pericardial or pleural effusions. Normal size aorta. Large bore dialysis catheter noted on the RIGHT. Small bilateral pleural effusions, RIGHT greater than LEFT with compressive atelectasis in the RIGHT lower lobe. There is hazy edema and attenuation from pulmonary congestion. Scattered lower lobe consolidations. There is a small amount of fluid in the anterior mediastinum of uncertain etiology. This fluid was not present on the prior study. No adenopathy. There is extensive beam hardening artifact from patient's bilateral hip prosthesis and overlying external lead wires. Extensive soft tissue edema and anasarca. There is a small amount of ascites surrounding the liver. Mesenteric edema. Exophytic 4 mm nodule from the posterior superior pole RIGHT kidney. CT/CT angio chest PE protcl [id number] IMPRESSION: 1. No pulmonary emboli identified. 2. Small bilateral pleural effusions, RIGHT greater than LEFT. 3. New pulmonary edema and areas of atelectasis in the lower lung raymond. Irre gular opacification LEFT upper lobe may be developing pneumonia. 4. Extensive soft tissue anasarca and edema has progressed. 5. There is a small amount of fluid in the anterior mediastinum of uncertain e tiology. May be due to fluid overload. Fluid closely associated with the ascend ing aorta. Clinically evaluate for possible injury to the aorta great vessels. This is only a small amount of fluid and could be due to overall fluid overload which is evident.
[2025-06-17] MEDS: iohexol 350 mg/mL 500 mL Btl (per mL) IV (13:36)
--- NOTE | 2025-06-17 14:15 | PC.HD ---
8:10 a.m. Cath-Darius 2mg instilled into arterial limb of HD catheter due to inability to draw from port last dialysis treatment. Prior to dialysis treatment initiation today, Cath-Darius was removed from port. Port then flushed with NSS syringe. Able to draw from arterial port, but very sluggish and will not tolerate prescribed 350 mL/min blood flow rate during treatment. Therefore, lines were afffixed in reverse configuration and treatment was initiated without further difficulty.
--- NOTE | 2025-06-17 15:10 | PC.OT ---
OT TREATMENT HELD TODAY DUE TO CARDIAC CATH TODAY AND DIALYSIS
--- NOTE | 2025-06-17 16:30 | P.PN_ITS ---
<Statement entered by Tereso Gibson MD - 06/17/25 17:42> Patient was evaluated and cared for in conjunction with an advanced practice practitioner. I personally saw the patient and reviewed the chart and all pertinent data. I discussed the patient in detail with the advanced practice practitioner. Please see their note for complete assessment and agreed upon plan of care for the patient. Subjective 2 Subjective: Reviewed cardiac arrest event which occurred overnight, requiring CPR, administration of 1 amp of epi and defibrillation 200 J x 1. Arrest occurred at 4:36 AM, achieved ROSC at 4:43 AM. Review of the telemetry, appears to be torsades morphology. She also has monomorphic VT. She was taken to the [facility] for coronary angiogram, with 1 stent to the RCA due to critical ostial to proximal stenosis. LAD and left circumflex patent. Since coronary angiogram she has had dialysis this afternoon. She remains on amiodarone infusion. Vitals/I&O/Wt Last Vital Signs Temp 97.3 F L 06/17/25 14:12 Pulse 74 06/17/25 16:00 Resp 12 06/17/25 16:00 BP 117/67 06/17/25 16:00 Pulse Ox 98 06/17/25 16:00 O2 Del Method CPAP 06/17/25 16:00 O2 Flow Rate 4 06/17/25 16:00 FiO2 40 06/17/25 14:15 06/17/25 06/17/25 06/17/25 06:59 14:59 22:59 Intake Total 376 / 1276 295.526 / 295.526 Balance 376 / 1226 295.526 / 295.526 Physical Exam 2 Const: COMMON NORMALS: no acute distress and patient oriented x3 GENERAL APPEARANCE: cooperative ORIENTATION/CONSCIOUSNESS: Yes awake, Yes oriented to person, Yes oriented to place and Yes oriented to time Chest: COMMONS NORMALS: normal inspection of the chest and normal palpation of entire chest wall CHEST: Yes Symmetrical chest wall rise Resp: COMMON NORMALS: normal respiratory effort, No retractions and No use of accessory muscles AUSCULTATION: diminished lung sounds bilateral in the lower lung raymond Cardio: COMMON NORMALS: regular rate, regular rhythm, S1 normal heart sound present, S2 normal heart sound present, No gallops present (Cardio), No clicks present (Cardio), No murmurs present (Cardio) and No rub (Cardio) RATE: r egular rate RHYTHM: regular rhythm HEART SOUNDS: S1 normal heart sound present and S2 normal heart sound present PERIPHERAL PULSES: radial pulses present positive right 2+ and femoral pulses present positive right 2+ Neuro: COMMON NORMALS: patient oriented x3 and moves all extremities S ENSORIUM/ORIENTATION: Yes oriented to person, Yes oriented to place and Yes oriented to time Skin: WOUNDS: Yes surgical site (no hematoma palpable) Details: no odor Urinary Catheter Management: Romeo: Cath Placed During This Visit: yes Reason for Continuing Indwelling Catheter: Accurate Measurement of Urinary Output in Critically Ill Patients Urinary Catheter Date of Insertion: 06/03/25 Urinary Catheter Time of Insertion: 18:38 Data 06/17/25 04:34 06/17/25 04:34 A&P Assessment and plan 1. Cardiac arrest with ventricular fibrillation: 2. Atrial fibrillation with RVR: 3. Mild aortic stenosis: 4. Acute on chronic combined systolic and diastolic congestive heart failure: 5. Essential hypertension: 6. Morbid obesity with BMI of 45.0-49.9, adult: 7. Hypothyroidism: 8. Acute renal failure with oliguria: 9. C. difficile diarrhea: 10. Rhinovirus infection: Plan: She is status post RCA stent, continue aspirin and Plavix. Heparin has been discontinued. Blood pressure has been soft after dialysis, continue midodrine and pyridostigmine. We can discuss ICD placement, she would prefer to go to [facility] in [place] for that procedure. She refuses [facility]. PDMP PDMP Reviewed: Not Reviewed Attestations 2 Medical Necessity Statement*: s/p cardiac arrest, stent to RCA, heart failure Coding Level of Care Code Acute Code for [facility] Fwd Diagnoses Cardiac arrest with ventricular fibrillation I46.9; I49.01 Atrial fibrillation with RVR I48.91 Mild aortic stenosis I35.0 Acute on chronic combined systolic and diastolic congestive heart failure I50.43 Essential hypertension I10 Morbid obesity with BMI of 45.0-49.9, adult E66.01; Z68.42 Hypothyroidism E03.9 Acute renal failure with oliguria N17.9; R34 C. difficile diarrhea A04.72 Rhinovirus infection B34.8
--- NOTE | 2025-06-17 16:40 | PC.HD ---
Patient continued throughout dialysis with soft BPs. With one hour left, patient's BP was 88/61. This RN had already initiated all available adjustments to treatment per hypotension dialysis orders with no improvement. Per precision devices inspector/tester, ok to terminate treatment early. Net fluid removal was 705 mL.
--- NOTE | 2025-06-17 18:04 | P.PN_ITS ---
Subjective 2 Subjective: events noted S/P LHC and stent placed Medications: Reviewed: Yes Vitals/I&O/Wt Last Vital Signs Temp 97.7 F 06/17/25 16:38 Pulse 75 06/17/25 16:38 Resp 13 06/17/25 16:38 BP 101/56 06/17/25 16:38 Pulse Ox 98 06/17/25 16:00 O2 Del Method CPAP 06/17/25 16:00 O2 Flow Rate 4 06/17/25 16:00 FiO2 40 06/17/25 14:15 06/17/25 06/17/25 06/17/25 06:59 14:59 22:59 Intake Total 376 / 1276 495.526 / 495.526 500 / 995.526 Output Total 1205 / 1205 Balance 376 / 1226 495.526 / 495.526 -705 / -209.474 Weight last 48 hrs Weight 111.5 kg Physical Exam 2 Narrative: Obese lady in bed using CPAP, she appears comfortable in bed. Vital signs noted. HEENT normocephalic/atraumatic. Neck obese Lungs -dull bases bilateral Heart positive S1-S2. Abdomen is soft positive bowel sounds. Extremities 1+ edema bilaterally. Neuro awake alert and oriented, moves all extremities follows commands. Urinary Catheter Management: Romeo: Cath Placed During This Visit: yes Reason for Continuing Indwelling Catheter: Accurate Measurement of Urinary Output in Critically Ill Patients Urinary Catheter Date of Insertion: 06/03/25 Urinary Catheter Time of Insertion: 18:38 Data 06/17/25 04:34 06/17/25 04:34 A&P Assessment and plan 1. Acute renal failure with oliguria: 79-year-old lady with 1. combined systolic and diastolic heart failure EF of approximately 30% and grade 2 out of 4 diastolic dysfunction and moderate mitral regurgitation moderate aortic valve stenosis. Patient developed acute on chronic renal failure baseline creatinine 1.5 mg/dL in February 2025. She follows with [facility] [place] [facility]. Patient has known positive serum protein electrophoresis. Patient is now here with ANDER felt to be either ATN versus cardiorenal syndrome. Patient initiated dialysis on June 09, 2025. please ensure that she has an outpatient dialysis spot. The patient feels better with dialysis.- on MWF schedule Patient's blood pressures dropped on days without it when she becomes volume overloaded. 2. Increased LFTs. Liver ultrasound normal size the liver. - Liver function test are improving today 3. obstructive sleep apnea. On CPAP 4.Combined systolic and diastolic dysfunction as per cardiology. Would consider adding Entresto or an DANNY or ARB. Given low EF I am okay with systolic blood pressure 100 hyponatremia. Likely from volume overload. Continue dialysis 5. Mild leukocytosis monitor 6. Mild anemia hemoglobin 9.9 will check B12 folate level 7. Monitor respiratory alkalosis with dialysis 8. Last week TSH 1.12 9. PTH of 134. Repeat in a month 10. V fib , s/p LHC -and RCA stent Patient has known MGUS and a very high free lambda. Would consider renal biopsy when stable ( asked ot to see [facility] to set up ) -Patient was seen and examined with the aid of a nurse using audiovisual equipment. This was a telehealth visit the patient consented to telehealth and to dialysis. Plan: Continue dialysis attempt to discharge from ICU. PDMP PDMP Reviewed: Not Reviewed Attestations 2 Medical Necessity Statement*: per sana Coding Level of Care Code Acute Code for Chg Fwd Diagnoses Acute renal failure with oliguria N17.9; R34
--- NOTE | 2025-06-17 18:39 | PC.NURSE ---
1330 -- 1 mL air removed from right radial TR band. Bruising noted above heart cath puncture site, old IV site. 1400 -- 1 mL air removed from right radial TR band. No further bruising noted. 1430 -- 1 mL air removed from right radial TR band. 1500 -- 1 mL air removed from right radial TR band. 1515 -- 2 mL air removed from right radial TR band. 1600 -- 2 mL air removed from right radial TR band. 1630 -- 2 mL air removed from right radial TR band. 1700 -- 2 mL air removed from right radial TR band. 1730 -- 2 mL air removed from right radial TR band. 1830 -- 2 mL air removed from right radial TR band. No air remaining in TR and, TR band remains in place. No increased bruising noted.
[2025-06-17] MEDS: fluticasone nasal spray 16gm Btl 2 SPRAY INTRANASAL (20:18)
[2025-06-17] MEDS: lidocaine 2% viscous 15 ML, aluminum-mag hydrox-simethicon 30 ML, sucralfate oral liq 1 GM PO (20:46)
[2025-06-18] VITALS (81 sets, daily range): BP systolic 76–144; BP diastolic 43–89; PULSE 60–81; RESP 0–29; TEMP 36.6–36.9; O2SAT 81–100
[2025-06-18] MEDS: carbidopa-levodopa ER 50-200mg Tablet 1 EACH PO ×2 (04:17→12:26)
[2025-06-18 05:12] LABS: Hematocrit 29.3 % (36-47); Hemoglobin 9.60 g/dL (11.27-16.99); Mean Corpuscular HGB Conc 32.8 g/dL (30-55); Mean Corpuscular Hemoglobin 34.7 pg (27-33); Mean Corpuscular Volume 105.8 fl (85-98); Nucleated Red Blood Cells % 8.2 %; Platelet Count 221 10^3/cmm (157-399); Red Blood Count 2.77 10^6/uL (3.85-5.65); White Blood Count 19.72 10^3/uL (3.29-11.43)
[2025-06-18 05:29] LABS: Albumin Level 4.1 g/dL (3.5-5.2); Alkaline Phosphatase 229 U/L (35-105); Anion Gap 23.7 (5-19); Aspartate Amino Transferase 68 U/L (0-32); Blood Urea Nitrogen 54 mg/dL (8-23); Calcium 9.4 mg/dL (8.5-10.5); Carbon Dioxide 23 mmol/L (22-29); Chloride 94 mmol/L (98-107); Creatinine Clr Calc Pharmacy 17.5813; Globulin 1.8 g/dL (1.3-4.6); Glucose 129 mg/dL (65-115); Osmolality Calculated 298 mOsm/kg (285-295); Potassium 4.7 mmol/L (3.5-5.1); Sodium 136 mmol/L (136-145); Total Protein 5.9 g/dL (6.6-8.7)
[2025-06-18 06:07] LABS: Alanine Aminotransferase 42 U/L (0-33)
--- NOTE | 2025-06-18 10:40 | P.PN_ITS ---
<Statement entered by Tereso Gibson MD - 06/18/25 17:41> Patient was evaluated and cared for in conjunction with an advanced practice practitioner. I personally saw the patient and reviewed the chart and all pertinent data. I discussed the patient in detail with the advanced practice practitioner. Please see their note for complete assessment and agreed upon plan of care for the patient. Subjective 2 Subjective: Hospitalist service has discussed CODE STATUS with her, she will allow defibrillation but does not want intubation or CPR. She had an 11 beat run of monomorphic VT overnight, did not lose consciousness. Hemodialysis planned for today. She would like to be referred to [facility] for ICD placement. Vitals/I&O/Wt Last Vital Signs Temp 98.4 F 06/18/25 08:00 Pulse 75 06/18/25 10:15 Resp 0 L 06/18/25 10:15 BP 119/75 06/18/25 10:15 Pulse Ox 97 06/18/25 10:15 O2 Del Method Nasal Cannula 06/18/25 10:00 O2 Flow Rate 4 06/18/25 10:00 FiO2 50 06/18/25 04:00 06/17/25 06/18/25 06/18/25 22:59 06:59 14:59 Intake Total 1457.573 / 2673.099 720 / 2673.099 430.022 / 430.022 Output Total 1205 / 1205 Balance 252.573 / 1468.099 720 / 1468.099 430.022 / 430.022 Weight last 48 hrs Weight 245 lb 13.047 oz Physical Exam 2 Const: COMMON NORMALS: no acute distress and patient oriented x3 GENERAL APPEARANCE: cooperative and comfortable ORIENTATION/CONSCIOUSNESS: Yes awake, Yes oriented to person, Yes oriented to place and Yes oriented to time Chest: COMMONS NORMALS: normal inspection of the chest and normal palpation of entire chest wall CHEST: Yes Symmetrical chest wall rise Resp: COMMON NORMALS: normal respiratory effort, No retractions, No use of accessory muscles and clear to auscultation bilaterally EFFORT & INSPECTION: Yes symmetric chest movement AUSCULTATION: clear to auscultation bilaterally Cardio: COMMON NORMALS: regular rate, regular rhythm, S1 normal heart sound present, S2 normal heart sound present, No gallops present (Cardio), No clicks present (Cardio), No murmurs present (Cardio) and No rub (Cardio) RATE: r egular rate RHYTHM: regular rhythm HEART SOUNDS: S1 normal heart sound present and S2 normal heart sound present PERIPHERAL PULSES: radial pulses present Extremity: COMMON NORMALS: no pedal edema Neuro: COMMON NORMALS: patient oriented x3 and moves all extremities S ENSORIUM/ORIENTATION: Yes oriented to person, Yes oriented to place and Yes oriented to time Urinary Catheter Management: Romeo: Cath Placed During This Visit: yes Reason for Continuing Indwelling Catheter: Accurate Measurement of Urinary Output in Critically Ill Patients Urinary Catheter Date of Insertion: 06/03/25 Urinary Catheter Time of Insertion: 18:38 Data 06/18/25 04:35 06/18/25 04:35 A&P Assessment and plan 1. Cardiac arrest with ventricular fibrillation: 2. Torsades de pointes: 3. Nonischemic cardiomyopathy: 4. Acute on chronic combined systolic and diastolic congestive heart failure: 5. Acute renal failure with oliguria: 6. Sleep apnea treated with continuous positive airway pressure (CPAP): Plan: She had coronary angiogram yesterday and stent placed to the RCA after the torsades, monomorphic VT cardiac arrest event that occurred the morning of 06/17/2025. The cardiomyopathy remains nonischemic as she had a large codominant circumflex which is patent and patent LAD. She had pre-existing nonischemic cardiomyopathy with a EF less than 35% so improvement of LVEF is not expected. Given that she continues to have runs of monomorphic VT while on amiodarone infusion, we are requesting transfer to [facility] or [facility] in [place] for ICD placement. We are awaiting acceptance. PDMP PDMP Reviewed: Not Reviewed Attestations 2 Medical Necessity Statement*: transfer to [place] for ICD Coding Level of Care Code Acute Code for Chg Fwd Diagnoses Cardiac arrest with ventricular fibrillation I46.9; I49.01 Torsades de pointes I47.21 Nonischemic cardiomyopathy I42.8 Acute on chronic combined systolic and diastolic congestive heart failure I50.43 Acute renal failure with oliguria N17.9; R34 Sleep apnea treated with continuous positive airway pressure (CPAP) G47.30
--- NOTE | 2025-06-18 10:53 | PC.NURSE ---
Patient states that she wants to be made a DNR but does want to pursue getting an AICD. Isamar Ruiz NP at bedside, Dr. Concepcion notified.
--- NOTE | 2025-06-18 11:39 | P.PN_ITS ---
Subjective 2 Subjective: No acute events overnight. Patient has remained hemodynamically stable and afebrile. Denies any nausea, vomiting, headache. No chest pain. On examination she was on 6 L of oxygen supplementation turned down to 4 L saturating more than 95%. Blood pressure is better. Vitals/I&O/Wt Last Vital Signs Temp 98.4 F 06/18/25 08:00 Pulse 75 06/18/25 10:15 Resp 0 L 06/18/25 10:15 BP 119/75 06/18/25 10:15 Pulse Ox 97 06/18/25 10:15 O2 Del Method Nasal Cannula 06/18/25 10:00 O2 Flow Rate 4 06/18/25 10:00 FiO2 50 06/18/25 04:00 06/17/25 06/18/25 06/18/25 22:59 06:59 14:59 Intake Total 1457.573 / 1953.099 720 / 2673.099 430.022 / 430.022 Output Total 1205 / 1205 Balance 252.573 / 748.099 720 / 1468.099 430.022 / 430.022 Weight last 48 hrs Weight 111.5 kg Physical Exam 2 Narrative: General: No acute distress, AO x3, chronically sick appearing, on CPAP nasal pillows HEENT: PERRLA, pupils bilaterally equal and reactive Chest: Bilateral bronchial breath sounds lower lung raymond, decreased air entry all over, fine crackles in the right chest CVS: S1-S2 regular, no murmurs, no tachycardia, no gallops, no rubs Abdomen: Soft, nontender, no organomegaly, bowel sounds present Neuro: No focal deficits, no facial deformity, AO x3, power 5/5 in all limbs Urinary Catheter Management: Romeo: Cath Placed During This Visit: yes Reason for Continuing Indwelling Catheter: Accurate Measurement of Urinary Output in Critically Ill Patients Urinary Catheter Date of Insertion: 06/03/25 Urinary Catheter Time of Insertion: 18:38 Data 06/18/25 04:35 06/18/25 04:35 A&P Assessment and plan 1. Cardiac arrest with ventricular fibrillation: 2. Acute on chronic respiratory failure with hypoxia: 3. Acute on chronic combined systolic and diastolic congestive heart failure: EF 25 to 35% based on prior nuclear images and echo. Continue home CPAP for sleep Repeat echocardiogram showed EF 30% and grade 2/4 diastolic dysfunction no pericardial effusion. Severe aortic valve calcification noted with moderate aortic valve stenosis and moderate mitral valve regurg 4. Nonischemic cardiomyopathy: 5. Acute renal failure with oliguria: Romeo in place and continue diuretics. Serum bicarb 28 off bicarbonate replacement fluid patient is hard to diurese in part due to hypotension. Midodrine started yesterday but blood pressure still systolic 103. Will increase midodrine to 10 mg 3 times daily 6. Pneumonia of both lower lobes due to infectious organism: 7. C. difficile diarrhea: 8. Atrial fibrillation with RVR: 9. Wide-complex tachycardia: 10. Uremia: 11. Mild aortic stenosis: 12. Sleep apnea treated with continuous positive airway pressure (CPAP): Resume home APAP on her ResMed 11 machine 13. Esophageal dysphagia: Esophagram shows esophageal spasm and moderate-sized hiatal hernia and esophagus is displaced will need to further image for possible goiter or mass. Will allow contrast from barium swallow to pass and plan on CT of the chest abdomen pelvis to include the neck on Sunday Patient also has a right kidney mass to be evaluated. She needs to pass her stool regarding barium swallow before proceeding with repeat imaging 14. Hypothyroidism: TSH was 9 so I raise the levothyroxine. Notably patient had possible goiter on chest x-ray based on displacement of esophagus on barium swallow. CT scan ordered for the morning. We are awaiting passage of barium because that had compromised images of the kidney on last CT scan 15. Acute on chronic renal insufficiency: 16. Elevated d-dimer: 17. Rhinovirus infection: 18. MGUS (monoclonal gammopathy of unknown significance): 19. Goals of care, counseling/discussion: 20. Morbid obesity with BMI of 45.0-49.9, adult: Plan: Plan for the day: Underwent PCI to RCA yesterday. No acute chest pain. Continue with aspirin, Plavix. Restart statin as LFTs improving. Continue with amiodarone. Switch to 400 mg twice daily. Discontinue drip. If blood pressure remains stable can plan to add low-dose beta-joel. Monitor electrolytes. Open supplementation keeping saturation over 90%. Out of bed to chair. Physical therapy. Will discuss with cardiology regarding possible need for ICD placement given V- fib arrest with an EF of 20%. Continue with midodrine 10 mg 3 times daily along with pyridostigmine 60 mg 3 times daily. Goal blood pressure with mean artery pressure over 65. Continue oral vancomycin 500 mg Q6 hourly for 14-day overall. I had a detailed goals of care discussion and patient at bedside with nursing staff at bedside as well. Options discussed were discharged to SNF versus LTAC for further rehabitation but we did discuss that given her clinical picture, low EF she is at a high risk of repeat arrhythmia, arrest. We also discussed that there is a high chance of poor quality of life. Discussed with her option being hospice. Patient verbalizes understanding and states she would like to see if she can get better with some rehab with SNF or LTAC. She is okay with ICD placement if indicated. She does not want any chest compressions or life support. CODE STATUS changed to limited resuscitation only to defibrillation if needed. Analgesia: Morphine 1 mg 4 hours Glycemic control: Not needed Nutrition: Renal dialysis diet CODE STATUS: Full code PUD prophylaxis: Protonix DVT prophylaxis: Heparin SQ q12h. Continue with care at ICU This documentation was created by [facility] educational resource coordinator software. Every effort was made to ensure accuracy of educational resource coordinator. Any obvious errors or omissions should be clarified with the author of the document. Discharge plan: Given significant CHF, EF of 20%, respiratory failure, new dialysis, deconditioning patient would benefit from possible discharge to SNF for further rehabitation and monitoring. Patient for now is agreeable. Case management alerted. PDMP PDMP Reviewed: Not Reviewed Attestations 2 Medical Necessity Statement*: Requires further hospitalization for management of V-fib arrest in a patient with EF of 20%, congestive heart failure, new dialysis, C. difficile colitis, requirement of ACS workup given new V-fib, respiratory failure in setting of recent rhinovirus infection. Critical Care Time: Critical Care Time (min): 70 Diagnoses Cardiac arrest with ventricular fibrillation I46.9; I49.01 Acute on chronic respiratory failure with hypoxia J96.21 Chronicity: acute on chronic Acute on chronic combined systolic and diastolic congestive heart failure I50.43 Nonischemic cardiomyopathy I42.8 Acute renal failure with oliguria N17.9; R34 Pneumonia of both lower lobes due to infectious organism J18.9 Laterality: bilateral Lung location: lower lobe of lung Pneumonia type: due to unspecified organism C. difficile diarrhea A04.72 Atrial fibrillation with RVR I48.91 Wide-complex tachycardia R00.0 Uremia N19 Mild aortic stenosis I35.0 Sleep apnea treated with continuous positive airway pressure (CPAP) G47.30 Esophageal dysphagia R13.19 Hypothyroidism E03.9 Acute on chronic renal insufficiency N28.9; N18.9 Elevated d-dimer R79.89 Rhinovirus infection B34.8 MGUS (monoclonal gammopathy of unknown significance) D47.2 Goals of care, counseling/discussion Z71.89 Morbid obesity with BMI of 45.0-49.9, adult E66.01; Z68.42
--- NOTE | 2025-06-18 12:02 | P.PN_ITS ---
Subjective 2 Subjective: on 4L o2 Medications: Reviewed: Yes Vitals/I&O/Wt Last Vital Signs Temp 98.4 F 06/18/25 08:00 Pulse 75 06/18/25 10:15 Resp 0 L 06/18/25 10:15 BP 119/75 06/18/25 10:15 Pulse Ox 97 06/18/25 10:15 O2 Del Method Nasal Cannula 06/18/25 10:00 O2 Flow Rate 4 06/18/25 10:00 FiO2 50 06/18/25 04:00 06/17/25 06/18/25 06/18/25 22:59 06:59 14:59 Intake Total 1457.573 / 1953.099 720 / 2673.099 430.022 / 430.022 Output Total 1205 / 1205 Balance 252.573 / 748.099 720 / 1468.099 430.022 / 430.022 Weight last 48 hrs Weight 111.5 kg Physical Exam 2 Narrative: Obese lady in bed using CPAP, she appears comfortable in bed. Vital signs noted. HEENT normocephalic/atraumatic. Neck obese Lungs -dull bases bilateral Heart positive S1-S2. Abdomen is soft positive bowel sounds. Extremities 1+ edema bilaterally. Neuro awake alert and oriented, moves all extremities follows commands. Urinary Catheter Management: Romeo: Cath Placed During This Visit: yes Reason for Continuing Indwelling Catheter: Accurate Measurement of Urinary Output in Critically Ill Patients Urinary Catheter Date of Insertion: 06/03/25 Urinary Catheter Time of Insertion: 18:38 Data 06/18/25 04:35 06/18/25 04:35 A&P Assessment and plan 1. 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 Patient initiated dialysis on June 09, 2025. Patient developed acute on chronic renal failure baseline creatinine 1.5 mg/dL in February 2025. She follows with [facility]. Patient has known positive serum protein electrophoresis The patient feels better with dialysis.- on MWF schedule Patient's blood pressures dropped on days without it when she becomes volume overloaded. 2. CHF : EF of approximately 30% and grade 2 out of 4 diastolic dysfunction and moderate mitral regurgitation moderate aortic valve stenosis. 3. obstructive sleep apnea. On CPAP 4.Combined systolic and diastolic dysfunction as per cardiology. Would consider adding Entresto or an DANNY or ARB. Given low EF I am okay with systolic blood pressure 100 hyponatremia. Likely from volume overload. Continue dialysis 5. Mild leukocytosis monitor 6. Mild anemia hemoglobin 9.9 will check B12 folate level 7. Monitor respiratory alkalosis with dialysis 8. Last week TSH 1.12 9. PTH of 134. Repeat in a month 10. V fib , s/p LHC -and RCA stent Patient has known MGUS and a very high free lambda. Would consider renal biopsy when stable ( asked ot to see [facility] to set up ) -Patient was seen and examined with the aid of a nurse using audiovisual equipment. This was a telehealth visit the patient consented to telehealth and to dialysis. Plan: Continue dialysis attempt to discharge from ICU. PDMP PDMP Reviewed: Not Reviewed Attestations 2 Medical Necessity Statement*: per sana Coding Level of Care Code Acute Code for Chg Fwd Diagnoses Acute renal failure with oliguria N17.9; R34
[2025-06-18] MEDS: heparin 5,000 unit/mL INJ 1 mL 5000 UNIT SUBCUT (12:23)
--- NOTE | 2025-06-18 16:23 | P.TS_ITS ---
Transfer Summary Providers Date of Admission: 06/03/25 17:41 Date of Discharge/Transfer: 06/18/25 Attending Provider at Admission: Skinny Mckeon MD Attending Provider at Transfer: Can Concepcion MD Consults: Cardiology: Dr. Gibson/Dr. Harris Telemetry nephrology Surgery: Dr. Santizo Primary Care Provider: Haider Cancino MD Transfer Plans: Anticipated date of transfer: 06/18/25 . Receiving Facility: [facility] . Receiving Provider: Dr. Lo . Diagnoses at Discharge Discharge Diagnosis 1. Cardiac arrest with ventricular fibrillation: 2. Torsades de pointes: 3. Nonischemic cardiomyopathy: 4. Acute on chronic combined systolic and diastolic congestive heart failure: 5. Acute renal failure with oliguria: 6. Sleep apnea treated with continuous positive airway pressure (CPAP): 7. Essential hypertension: 8. Mild aortic stenosis: 9. Atrial fibrillation with RVR: 10. Elevated d-dimer: 11. MGUS (monoclonal gammopathy of unknown significance): 12. Rhinovirus infection: 13. C. difficile diarrhea: 14. Acute on chronic respiratory failure with hypoxia: 15. Pneumonia of both lower lobes due to infectious organism: Reason for Visit Reason for Visit Dizzy Low Bp Weaking swelling Legs/Feet Brief History: Per HPI Maryjo Lynn is a 79 year old female with history of congestive heart failure with EF 35 to 40% plus morbid obesity and sleep apnea comes in with acute renal failure oliguric. She states her urine output is fallen off last 1 week. She is on Entresto the last 9 months and torsemide for at least 5 years. Patient states she has walked with a walker for 10 years due to knee and back pain. She has history of falls a few times but longest she was on the ground was 20 minutes. She is dizzy and lightheaded when standing and her blood pressure was 80 on arrival BUN 104 creatinine 4.3. She has chronic kidney disease and takes no NSAIDs. Patient has nonischemic cardiomyopathy based on myocardial perfusion scan as recently as 11/05/2024 showing medium sized prior infarct in the LAD territory but no reversible ischemia. LV function reduced to 24% EF on that nuclear imaging. Echo showed EF 35 to 40%. Hospital Course Hospital Course Patient was admitted to the hospital further evaluation and management of congestive heart failure, acute kidney injury with worsening of EF. At first she was started on aggressive IV diuresis but given her worsening renal functions she did not show improvement. Given worsening renal functions, hyperkalemia, uremia nephrology was consulted. During hospitalization she was also found to have borderline soft blood pressures for which her home antihypertensives were discontinued. Eventually she was started on midodrine. Patient continued to have episodes of orthostatic hypotension for which pyridostigmine was added to midodrine after which her blood pressures are stable. Currently she is on 10 of midodrine 3 times a day along with 60 of pyridostigmine 3 times a day. Eventually patient was started on hemodialysis with tunneled catheter which was placed on 06/08. Patient was doing well on hemodialysis and outpatient hemodialysis chair time was being set up when she developed acute hypoxic respiratory failure due to rhinovirus infection, pneumonia and congestive heart failure for which she was transferred to ICU started on broad-spectrum IV antibiotics, steroid treatment. Gradually her respiratory status improved and currently is at its baseline with 3-5 l of oxygen supplementation during the day and CPAP with 3 L bled in overnight. Her hospitalization further complicated by her developing multiple episodes of diarrhea for which she was found to be positive for C. difficile and started on oral vancomycin. Her hospitalization was further complicated by her developing episode of nonsustained V. tach for which at first she was started on IV amiodarone. On the night of 06/16 she had an episode of V-fib arrest for which she required to be defibrillated twice, had a 5 minutes CPR. Post ROSC she has been AO x 3, no neurological deficit. Cardiology was consulted and she underwent cardiac angiogram and PCI to RCA. Given concerns for recurrent nonsustained V. tach, frequent VPCs, V-fib arrest in setting of nonischemic cardiomyopathy cardiology recommended patient to have an ICD placement. Multiple goals of care discussions were done in setting of prolonged hospitalization, severe LV dysfunction with a EF of 20%, end-stage renal disease now on hemodialysis, severe deconditioning and options discussed were transferred to SNF or LTAC, possible transition to hospice. Patient verbalized understanding and changed her CODE STATUS to limited resuscitation with cardioversion only and is pursuing ICD placement. Unfortunately ICD cannot be placed at our hospital hence transfer to tertiary center was sought. Physical Exam Narrative: General: No acute distress, AO x3, chronically sick appearing, on CPAP nasal pillows HEENT: PERRLA, pupils bilaterally equal and reactive Chest: Bilateral bronchial breath sounds lower lung raymond, decreased air entry all over, fine crackles in the right chest CVS: S1-S2 regular, no murmurs, no tachycardia, no gallops, no rubs Abdomen: Soft, nontender, no organomegaly, bowel sounds present Neuro: No focal deficits, no facial deformity, AO x3, power 5/5 in all limbs Urinary Catheter Management: Romeo: Cath Placed During This Visit: yes Reason for Continuing Indwelling Catheter: Accurate Measurement of Urinary Output in Critically Ill Patients Urinary Catheter Date of Insertion: 06/03/25 Urinary Catheter Time of Insertion: 18:38 TS Data Studies Completed and Pending Pending at discharge Category Date Time Status [employer] ARCHITECT request for service Routine Exams 06/17/25 08:15 Taken Complete Blood Count w/Auto AM LABS Lab 06/19/25 04:00 Ordered Complete Blood Count w/Auto AM LABS Lab 06/20/25 04:00 Ordered Complete Blood Count w/Auto AM LABS Lab 06/21/25 04:00 Ordered Comprehensive Metabolic Panel AM LABS Lab 06/19/25 04:00 Ordered Comprehensive Metabolic Panel AM LABS Lab 06/20/25 04:00 Ordered Comprehensive Metabolic Panel AM LABS Lab 06/21/25 04:00 Ordered Completed Studies During Hospitalization Category Date Time Status CT abdomen pelvis wo con [id number] Routine Cat Scan 06/05/25 11:[address] angio chest PE protcl [id number] Routine Cat Scan 06/17/25 13:[address] angio chest abd [id number] Stat Cat Scan 06/10/25 10:[address] chest abdomen pelvis [[place] [id number] Cat Scan 06/08/25 10:00 Completed ] Routine FL barium swallow [id number] Routine Exams 06/04/25 12:46 Completed XR chest 1V portable [id number] Routine Exams 06/10/25 08:37 Completed XR chest 1V portable [id number] Routine Exams 06/13/25 09:01 Completed XR chest 1V portable [id number] Routine Exams 06/15/25 07:59 Completed XR chest 1V portable [id number] Routine Exams 06/17/25 04:52 Completed XR chest 1V portable [id number] Stat Exams 06/03/25 12:58 [place] [id number] Routine Ultrasound 06/17/25 04:57 Completed CV. echo limited [id number] Routine Ultrasound 06/17/25 04:57 Completed CV. echo limited [id number] Stat Ultrasound 06/10/25 10:54 Completed US echo complete [CV. echo complete* [id number]] Routine Ultrasound 06/04/25 15:04 Completed US liver [id number] Routine Ultrasound 06/12/25 08:11 Completed US renal BI* [id number] Routine Ultrasound 06/04/25 15:04 Completed Laboratory Last Values WBC 19.72 10^3/uL (3.29-11.43) H 06/18/25 04:35 RBC 2.77 10^6/uL (3.85-5.65) L 06/18/25 04:35 Hgb 9.60 g/dL (11.27-16.99) L 06/18/25 04:35 Hct 29.3 % (36-47) L 06/18/25 04:35 MCV 105.8 fl (85-98) H 06/18/25 04:35 MCH 34.7 pg (27-33) H 06/18/25 04:35 MCHC 32.8 g/dL (30-55) 06/18/25 04:35 RDW 18.1 % (12.1-15.1) H 06/18/25 04:35 Plt Count 221 10^3/cmm (157-399) 06/18/25 04:35 MPV 11.8 fL (7.4-10.4) H 06/18/25 04:35 Neut % (Auto) 89.5 % 06/18/25 04:35 Lymph % (Auto) 2.3 % 06/18/25 04:35 Rosebud % (Auto) 7.3 % 06/18/25 04:35 Eos % (Auto) 0.1 % 06/18/25 04:35 Baso % (Auto) 0.1 % 06/18/25 04:35 Neut # (Auto) 17.66 10^3/uL (1.8-7.7) H 06/18/25 04:35 Lymph # (Auto) 0.5 10^3/uL (0.8-4.8) L 06/18/25 04:35 Rosebud # (Auto) 1.4 10^3/uL (0.2-0.9) H 06/18/25 04:35 Eos # (Auto) 0.0 10^3/uL (0.0-0.8) 06/18/25 04:35 Baso # (Auto) 0.0 10^3/uL (0.0-0.1) 06/18/25 04:35 Nucleated RBC % (auto) 8.2 % 06/18/25 04:35 Nucleated RBCs # 1.6 /100WBC 06/18/25 04:35 D-Dimer 18.46 ug/mLFEU (0-0.59) H 06/17/25 06:42 Specimen Type Arterial 06/17/25 04:43 Sample Site Brachial, right 06/17/25 04:43 ABG pH 7.31 (7.35-7.45) L 06/17/25 04:43 ABG pCO2 46.4 mmHg (35-45) H 06/17/25 04:43 ABG pO2 59.0 mmHg (80.0-100.0) L 06/17/25 04:43 ABG PO2/FiO2 Ratio 226 06/12/25 08:42 ABG HCO3 23.2 mmol/L (22-26) 06/17/25 04:43 ABG O2 Saturation 89.3 06/17/25 04:43 ABG Base Excess -3.1 mmol/L (-2.0-2.0) L 06/17/25 04:43 Juwan Test N/a 06/17/25 04:43 A-a O2 Gradient 4.4 mmHg (5-10) L 06/17/25 04:43 Hematocrit 33.5 % (37-47) L 06/17/25 04:43 Hgb O2 Saturation 88.1 % (95-100) L 06/17/25 04:43 Carboxyhemoglobin 0.8 %THgb (0.4-20.1) 06/17/25 04:43 Methemoglobin 0.6 % (0.4-1.5) 06/17/25 04:43 Total Hemoglobin 10.9 g/dL (12-16) L 06/17/25 04:43 Sodium 134.0 mmol/L (131-143) 06/17/25 04:43 Potassium 4.5 mmol/L (3.5-5.0) 06/17/25 04:43 Glucose 180.0 mg/dL (70-115) H 06/17/25 04:43 Ionized Calcium 1.4 mmol/L (1.1-1.4) 06/17/25 04:43 O2 Delivery Device Nrb 06/17/25 04:43 O2 Liters/Min 15.0 % 06/17/25 04:43 FiO2 28.0 % 06/12/25 08:42 Technician Trainee ID [email or web address] 06/17/25 04:43 Sodium 136 mmol/L (136-145) 06/18/25 04:35 Potassium 4.7 mmol/L (3.5-5.1) 06/18/25 04:35 Chloride 94 mmol/L (98-107) L 06/18/25 04:35 Carbon Dioxide 23 mmol/L (22-29) 06/18/25 04:35 Anion Gap 23.7 (5-19) H 06/18/25 04:35 BUN 54 mg/dL (8-23) H 06/18/25 04:35 Creatinine 3.1 mg/dL (0.5-0.9) H 06/18/25 04:35 GFR Calculation Not Reportable 06/18/25 04:35 Glucose 129 mg/dL (65-115) H 06/18/25 04:35 POC Glucose 115 mg/dL (70-110) H 06/17/25 04:49 Estimat Average Glucose 94 06/08/25 04:49 Hemoglobin A1c 4.9 % (4.0-6.0) 06/08/25 04:49 Calculated Osmolality 298 mOsm/kg (285-295) H 06/18/25 04:35 Lactic Acid 1.3 mmol/L (0.5-2.2) 06/03/25 13:29 Calcium 9.4 mg/dL (8.5-10.5) 06/18/25 04:35 Phosphorus 5.1 mg/dL (2.5-4.5) H 06/17/25 04:34 Magnesium 2.2 mg/dL (1.7-2.3) 06/17/25 04:34 Iron 64 ug/dL (37-145) 06/14/25 04:50 TIBC 288 mcg/dl 06/14/25 04:50 % Saturation 22.2 % (20-50) 06/14/25 04:50 Unsat Iron Binding 224 ug/dL (112-347) 06/14/25 04:50 Ferritin 654 ng/mL (15-150) H 06/14/25 04:50 Total Bilirubin 0.7 mg/dL (0.15-1.2) 06/18/25 04:35 AST 68 U/L (0-32) H 06/18/25 04:35 ALT 42 U/L (0-33) H 06/18/25 04:35 Alkaline Phosphatase 229 U/L (35-105) H 06/18/25 04:35 Ammonia 44 umol/L (11-51) 06/13/25 03:30 Creatine Kinase 150 U/L (26-192) 06/03/25 13:29 Troponin T Baseline 279 ng/L (0-10) H* 06/17/25 04:34 Troponin T 120 Minute 294.8 ng/L (0-10) H 06/17/25 06:42 Delta Troponin T 15.8 ABS# (0-10) H* 06/17/25 06:42 Troponin T Hi Sens 6Hr 162.2 ng/L (0-10) H 06/03/25 19:12 Troponin T Hi Sens 6Hr Delta -24.8 ng/L (0-12) L 06/03/25 19:12 C-Reactive Protein 12.4 mg/L (0.0-4.9) H 06/03/25 13:29 NT-Pro-B Natriuret Pep 52741 pg/mL (0-450) H 06/03/25 13:29 Total Protein 5.9 g/dL (6.6-8.7) L 06/18/25 04:35 Albumin 4.1 g/dL (3.5-5.2) 06/18/25 04:35 Globulin 1.8 g/dL (1.3-4.6) 06/18/25 04:35 Pjlsp-5-Qvietihiw 0.4 g/dL (0.2-0.3) H 06/04/25 16:38 Cfmnc-5-Enpeyaimn 0.8 g/dL (0.5-0.9) 06/04/25 16:38 Mjom-4-Uytdcppy 0.4 g/dL (0.4-0.6) 06/04/25 16:38 Vpkj-7-Wmqoostb 0.3 g/dL (0.2-0.5) 06/04/25 16:38 Gamma Globulins 0.4 g/dL (0.8-1.7) L 06/04/25 16:38 Abnorm Protein Band 1 0.1 g/dL (NONE DETECTED) H 06/04/25 16:38 Vitamin B12 > 2000 pg/mL (232-1245) H 06/13/25 03:30 25-OH Vitamin D Total 53 ng/mL (30-100) 06/14/25 04:50 Folate > 20.0 ng/mL (4.8-37.3) 06/13/25 03:30 TSH 9.12 uIU/mL (0.27-4.20) H 06/03/25 13:29 Free T4 1.50 ng/dL (0.82-1.77) 06/08/25 04:49 Random Cortisol 14.07 ug/dL (2.47-19.5) 06/08/25 04:49 Urine Color Dark yellow (Yellow) A 06/03/25 18:35 Urine Appearance Clear (CLEAR) 06/03/25 18:35 Urine pH 5.0 (5-7) 06/03/25 18:35 Ur Specific Atkins 1.013 (1.005-1.030) 06/03/25 18:35 Urine Protein 1+ (Negative) A 06/03/25 18:35 Urine Glucose (UA) Negative (Normal) 06/03/25 18:35 Urine Ketones Negative (Negative) 06/03/25 18:35 Urine Blood Negative (Negative) 06/03/25 18:35 Urine Nitrate Negative (Negative) 06/03/25 18:35 Urine Bilirubin Negative (Negative) 06/03/25 18:35 Urine Urobilinogen 0.2 mg/dL (Negative) 06/03/25 18:35 Ur Leukocyte Esterase Trace (Negative) A 06/03/25 18:35 Urine RBC 3-5 /hpf (0-2) 06/03/25 18:35 Urine WBC 0-5 /hpf (0-5) 06/03/25 18:35 Ur Squamous Epith Cells 0-5 /hpf (0-5) 06/03/25 18:35 Amorphous Sediment Not Reportable 06/03/25 18:35 Urine Bacteria None seen /hpf (NONE) 06/03/25 18:35 Hyaline Casts 20.27 /lpf 06/03/25 18:35 Ur Random Creatinine 51 mg/dL (20-275) 06/04/25 17:00 Ur Random Albumin 73 % 06/04/25 17:00 U Random Total Protein 21 mg/dL 06/04/25 17:00 U Random Total Protein 25 mg/dL (5-24) H 06/04/25 17:00 Ur Random Sodium 65 mmol/L 06/04/25 17:00 Ur Random Chloride 63 mmol/L 06/04/25 17:00 Urine Creatinine 54 mg/dL (28-217) 06/04/25 17:00 Protein/Creatinin Ratio 490 mg/g creat (24-184) H 06/04/25 17:00 Protein/Creat Ratio 24h 0.490 (0.024-0.184) H 06/04/25 17:00 U Random k-0-Czfklvrm % 3 % 06/04/25 17:00 U Random l-9-Jdbsehpv % 5 % 06/04/25 17:00 U Random Beta Globulin 10 % 06/04/25 17:00 U Random Gamma Glob 10 % 06/04/25 17:00 U Abnormal Prot Band 1 Not Reportable 06/04/25 17:00 U Abnormal Prot Band 2 Not Reportable 06/04/25 17:00 U Abnormal Prot Band 3 Not Reportable 06/04/25 17:00 Urine PEP Interpret See note 06/04/25 17:00 Nasal MRSA (PCR) Not detected (Not Detecte) 06/10/25 14:59 Pro Electrophoresis Int See note 06/04/25 16:38 YOMI IFA Animal Tis Res Negative (NEGATIVE) 06/04/25 16:38 ANCA Screen Negative (NEGATIVE) 06/04/25 16:38 ANCA Titer Not Reportable 06/04/25 16:38 TAYLOR-1 Antibody <1.0 neg AI (<1.0 NEG) 06/04/25 16:38 SS-A Antibody <1.0 neg AI (<1.0 NEG) 06/04/25 16:38 SS-B Antibody <1.0 neg AI (<1.0 NEG) 06/04/25 16:38 Sm (Lemon) Antibody <1.0 neg AI (<1.0 NEG) 06/04/25 16:38 NEWSPAPER PHOTOGRAPHER Antibody <1.0 neg AI (<1.0 NEG) 06/04/25 16:38 Scl-70 Antibody <1.0 neg AI (<1.0 NEG) 06/04/25 16:38 Anti-ds DNA IgG (Crith) Negative (NEGATIVE) 06/04/25 16:38 Centromere B Antibody <1.0 neg AI (<1.0 NEG) 06/04/25 16:38 Thyroid Peroxidase Ab 35 IU/mL (<9) H 06/04/25 16:38 Complement C3 113 mg/dL (90-180) 06/04/25 16:38 Complement C3c 104 mg/dL (83-193) 06/04/25 16:38 Complement C4 36 mg/dL (10-40) 06/04/25 16:38 Complement C4c 35 mg/dL (15-57) 06/04/25 16:38 CH50 Classical Pathway 53 U/mL (31-60) 06/04/25 16:38 Free [place] Light Chains 28.7 mg/L (3.3-19.4) H 06/05/25 05:23 Free Lambda Light Chain 1386.1 mg/L (5.7-26.3) H 06/05/25 05:23 Free [place]/Lambda Ratio 0.02 (0.26-1.65) L 06/05/25 05:23 Adenovirus (PCR) Not detected (NOT DETECT) 06/10/25 14:54 C. pneumoniae DNA (PCR) Not detected (NOT DETECT) 06/10/25 14:54 C. difficile (PCR) Positive (Negative) H 06/15/25 09:30 C.difficile Tox Confrm Negative (Negative) 06/15/25 09:30 Coronavirus 229E (PCR) Not detected (NOT DETECT) 06/10/25 14:54 Hep Bs Antigen Non-reactive (Nonreactive) 06/09/25 04:45 Hep Bs Antibody < 3.5 (11.5-1000) L 06/09/25 04:45 Hep B Core Total Ab Non-reactive (Nonreactive) 06/09/25 04:45 Hepatitis C Antibody Non-reactive (Nonreactive) 06/13/25 03:30 Human Metapneumovir PCR Not detected (NOT DETECT) 06/10/25 14:54 Influenza A (H1) PCR Not detected (NOT DETECT) 06/10/25 14:54 Influ A (H1/09) PCR Not detected (NOT DETECT) 06/10/25 14:54 Influenza A (H3) PCR Not detected (NOT DETECT) 06/10/25 14:54 Influenza Type A (PCR) Not detected (NOT DETECT) 06/10/25 14:54 Influenza Type B (PCR) Not detected (NOT DETECT) 06/10/25 14:54 M. pneumoniae (PCR) Not detected (NOT DETECT) 06/10/25 14:54 Parainfluenza 1 (PCR) Not detected (NOT DETECT) 06/10/25 14:54 Parainfluenza 2 (PCR) Not detected (NOT DETECT) 06/10/25 14:54 Parainfluenza 3 (PCR) Not detected (NOT DETECT) 06/10/25 14:54 Parainfluenza 4 (PCR) Not detected (NOT DETECT) 06/10/25 14:54 RSV Type A (PCR) Not detected (NOT DETECT) 06/10/25 14:54 RSV Type B (PCR) Not detected (NOT DETECT) 06/10/25 14:54 Entero/Rhino (PCR) Detected (NOT DETECT) A 06/10/25 14:54 SARS-CoV-2 (PCR) Not detected (NOT DETECT) 06/10/25 14:54 Radiology Impressions Barium Swallow X-Ray 06/04/25 12:46 IMPRESSION: 1. Limited esophagram showing extrinsic leftward esophageal displacement most likely secondary to a mediastinal mass. This may be secondary to goiter. 2. No intrinsic esophageal mass was seen. 3. Esophageal spasm and moderate-sized hiatal hernia were noted. Renal Ultrasound 06/04/25 15:04 IMPRESSION: 1. Quality of this ultrasound is limited by patient's body habitus. 2. Poorly visualized LEFT kidney. 3. No renal obstruction. 4. Hypoechoic mass from the mid RIGHT kidney measures 1.5 x 0.9 x 0.8 cm. Cannot be further characterized as cystic or solid by ultrasound. Consider additional evaluation by CT or MRI with and without contrast. Renal mass protocol should be utilized. Abdomen/Pelvis CT 06/05/25 11:39 IMPRESSION: 1. Small bilateral pleural effusions. 2. Cardiomegaly. 3. Large amount of soft tissue anasarca and a small amount of ascites. 4. This is a nondiagnostic evaluation of the previously described RIGHT renal mass. There is a large amount of streak artifact from barium patient ingested for barium swallow study on 06/04/2025. Streak artifact is obscuring large por tions of the abdomen and pelvis. Also, a noncontrast CT is insufficient to evaluate the RIGHT renal mass seen on ultrasound. Before additional imaging of the abdomen and pelvis is performed recommend sufficient interval time in order for the high density contrast to be evacuated. 5. Cardiomegaly. 6. Hiatal hernia. There is still high density oral contrast within the hiatal hernia. Chest/Abdomen/Pelvis CT 06/08/25 10:00 IMPRESSION: Images of the abdomen and pelvis remain limited due to significant beam hardening artifact from barium in the colon 1. Tiny bilateral pleural effusions. 2. No visualized mediastinal mass. 3. Cardiomegaly. 4. Large esophageal hiatal hernia. 5. No visualized renal mass considering limitations on this noncontrast study that would correspond to the ultrasound findings. Current exam is limited and recommend interval follow-up after barium clears with contrast-enhanced CT abdomen pelvis. Follow-up exam to evaluate renal lesion needs to be performed with IV contrast in order to evaluate the previously described renal lesion seen on ultrasound C-Arm Fluoroscopy 06/09/25 14:32 Impression: Right dialysis catheter insertion. Chest/Abdomen CTA 06/10/25 10:28 IMPRESSION: Multifocal pneumonia with effusions. IMPRESSION: No acute subdiaphragmatic pathology. Liver Ultrasound 06/12/25 08:11 IMPRESSION: 1. Normal gallbladder. 2. Abnormal flow in the portal vein. Loss of the normal smooth undulating wave form. There is still some flow present in the portal vein. No thrombus identified. The waveform is abnormal. There is no reversal of the normal undulating pattern is not present. Some of these changes may be due to patient's body habitus and limitations of the ultrasound evaluation. The portal vein was patent with no thrombus on the CT of 06/10/2025. 3. No ascites. 4. No intrahepatic duct dilatation. Chest X-Ray 06/17/25 04:52 IMPRESSION: 1. Mild cardiomegaly. 2. Increased mild pulmonary vascular congestion/fluid overload. Venous Duplex 06/17/25 04:57 IMPRESSION: No evidence of deep vein thrombosis. Chest CTA 06/17/25 13:00 IMPRESSION: 1. No pulmonary emboli identified. 2. Small bilateral pleural effusions, RIGHT greater than LEFT. 3. New pulmonary edema and areas of atelectasis in the lower lung raymond. Irregular opacification LEFT upper lobe may be developing pneumonia. 4. Extensive soft tissue anasarca and edema has progressed. 5. There is a small amount of fluid in the anterior mediastinum of uncertain etiology. May be due to fluid overload. Fluid closely associated with the ascending aorta. Clinically evaluate for possible injury to the aorta great vessels. This is only a small amount of fluid and could be due to overall fluid overload which is evident. Microbiology 06/11/25 13:52 Sputum - Expectorated Sputum Gram Stain - Final 06/11/25 13:52 Sputum - Expectorated Sputum Sputum Culture - Final 06/03/25 13:27 Blood Blood Culture - Final NO GROWTH AFTER 5 DAYS 06/03/25 13:29 Blood Blood Culture - Final NO GROWTH AFTER 5 DAYS Recent Clincial Data Last Vital Signs Temp 98.0 F 06/18/25 12:00 Pulse 70 06/18/25 15:30 Resp 17 06/18/25 15:30 BP 102/54 06/18/25 15:30 Pulse Ox 95 06/18/25 15:30 O2 Del Method BiPAP 06/18/25 15:00 O2 Flow Rate 4 06/18/25 14:00 FiO2 50 06/18/25 15:16 Vital Signs Temp Pulse Resp BP Pulse Ox O2 Del Method O2 Flow Rate 06/18/25 15:30 70 17 102/54 95 06/18/25 15:16 77 99 06/18/25 15:15 77 28 H 91/59 97 06/18/25 15:00 69 15 78/48 92 BiPAP 06/18/25 14:45 76 21 H 99/81 81 L 06/18/25 14:30 72 19 H 107/89 96 06/18/25 14:15 80 11 L 105/61 98 06/18/25 14:00 79 16 106/57 100 Nasal Cannula 4 06/18/25 13:45 78 13 106/52 99 06/18/25 13:40 76 06/18/25 13:33 78 19 H 98 Nasal Cannula 6 06/18/25 13:30 75 15 106/52 99 11/13/25 13:15 78 13 116/72 97 06/18/25 13:00 81 15 128/75 92 Nasal Cannula 4 06/18/25 12:45 78 26 H 101/64 99 06/18/25 12:30 76 21 H 142/72 97 06/18/25 12:15 75 12 123/75 84 L 06/18/25 12:00 98.0 F 74 8 L 123/75 92 Nasal Cannula 4 06/18/25 11:45 74 14 112/80 95 06/18/25 11:30 74 14 123/76 93 06/18/25 11:15 76 13 132/67 96 06/18/25 11:00 76 21 H 114/69 94 Nasal Cannula 4 06/18/25 10:45 75 23 H 114/69 97 06/18/25 10:30 76 5 L 115/85 98 06/18/25 10:15 75 0 L 119/75 97 06/18/25 10:00 75 9 L 127/73 97 Nasal Cannula 4 06/18/25 09:45 76 1 L 122/78 96 06/18/25 09:30 72 8 L 119/84 96 06/18/25 09:15 78 10 L 115/72 98 06/18/25 09:00 78 6 L 121/64 98 06/18/25 08:45 80 4 L 115/76 95 06/18/25 08:30 77 12 124/74 97 06/18/25 08:15 73 13 124/74 99 06/18/25 08:10 77 18 98 Nasal Cannula 6 06/18/25 08:00 98.4 F 74 15 111/77 98 Nasal Cannula 6 06/18/25 07:45 74 5 L 118/71 97 06/18/25 07:30 73 8 L 113/69 99 06/18/25 07:15 73 7 L 124/62 98 06/18/25 07:00 73 18 115/73 99 06/18/25 06:45 74 17 116/72 100 06/18/25 06:00 74 12 115/71 99 06/18/25 05:45 68 19 H 114/65 100 06/18/25 05:30 75 18 121/69 99 06/18/25 05:15 75 6 L 112/69 100 06/18/25 05:00 69 13 144/57 98 06/18/25 04:45 76 0 L 89/60 97 06/18/25 04:30 70 17 89/60 91 FiO2 06/18/25 15:30 06/18/25 15:16 50 06/18/25 15:15 06/18/25 15:00 40 06/18/25 14:45 06/18/25 14:30 06/18/25 14:15 06/18/25 14:00 06/18/25 13:45 06/18/25 13:40 06/18/25 13:33 06/18/25 13:30 06/18/25 13:15 06/18/25 13:00 06/18/25 12:45 06/18/25 12:30 06/18/25 12:15 06/18/25 12:00 06/18/25 11:45 06/18/25 11:30 06/18/25 11:15 06/18/25 11:00 06/18/25 10:45 06/18/25 10:30 06/18/25 10:15 06/18/25 10:00 06/18/25 09:45 06/18/25 09:30 06/18/25 09:15 06/18/25 09:00 06/18/25 08:45 06/18/25 08:30 06/18/25 08:15 06/18/25 08:10 06/18/25 08:00 06/18/25 07:45 06/18/25 07:30 06/18/25 07:15 06/18/25 07:00 06/18/25 06:45 06/18/25 06:00 06/18/25 05:45 06/18/25 05:30 06/18/25 05:15 06/18/25 05:00 06/18/25 04:45 06/18/25 04:30 Intake & Output/Weight 06/16/25 06/17/25 06/18/25 06/19/25 06:59 06:59 06:59 06:59 Intake Total 2019 1276 / 1276 2673.099 / 2673.099 680.022 / 680.022 Output Total 3000 / 3000 50 / 50 1205 / 1205 Balance -980 / -980 1226 / 1226 1468.099 / 1468.099 680.022 / 680.022 Weight 104.5 kg 111.5 kg Vitals Last Vital Signs Temp 98.0 F 06/18/25 12:00 Pulse 70 06/18/25 15:30 Resp 17 06/18/25 15:30 BP 102/54 06/18/25 15:30 Pulse Ox 95 06/18/25 15:30 O2 Del Method BiPAP 06/18/25 15:00 O2 Flow Rate 4 06/18/25 14:00 FiO2 50 06/18/25 15:16 TS Medications Medications Acetaminophen (Acetaminophen 325 Mg Tablet) 650 mg PO Q6H PRN PRN Reason: Mild/Mod Pain Or Temp >/= 101 Hydrocodone Bitart/Acetaminophen (Hydrocodone-Acetaminophen 5-325 Mg Tablet) 1 tab PO Q6H PRN PRN Reason: PAIN Last Admin: 06/15/25 23:20 Dose: 1 tab Albuterol Sulfate (Albuterol 2.5 Mg/3 Ml Neb) 2.5 mg INHALATION QID.RESPIRATORY PRN PRN Reason: WHEEZING Amiodarone HCl (Amiodarone 200 Mg Tablet) 400 mg PO BID [facility] Last Admin: 06/18/25 10:59 Dose: 400 mg Artificial Tears (Artificial Tears Op Soln 15 Ml Btl) 1 drop EYE-BOTH Q4H PRN PRN Reason: DRY EYE(S) Aspirin (Aspirin 81 Mg Ec Tablet) 81 mg PO DAILY [facility] Last Admin: 06/18/25 04:16 Dose: 81 mg Atorvastatin Calcium (Atorvastatin 20 Mg Tablet) 20 mg PO BEDTIME MAL Budesonide (Budesonide 0.5 Mg/2 Ml Neb) 0.5 mg INHALATION BID.RESPIRATORY MAL Last Admin: 06/18/25 08:06 Dose: 0.5 mg Carbidopa/Levodopa (Carbidopa-Levodopa Er 50-200mg Tablet) 1 each PO TID MAL Last Admin: 06/18/25 12:26 Dose: 1 each Clopidogrel Bisulfate (Clopidogrel 75 Mg Tablet) 75 mg PO DAILY [facility] Last Admin: 06/18/25 04:16 Dose: 75 mg Fluticasone Propionate (Fluticasone Nasal [place] 16gm Btl) 2 spray INTRANASAL BEDTIME MAL Last Admin: 06/17/25 20:18 Dose: 2 spray Gabapentin (Gabapentin 100 Mg Capsule) 200 mg PO BEDTIME [facility] Last Admin: 06/17/25 20:02 Dose: 200 mg Heparin Sodium (Porcine) (Heparin 5,000 Unit/Ml Inj 1 Ml) 5,000 unit SUBCUT Q12H [facility] Last Admin: 06/18/25 12:23 Dose: 5,000 unit Sodium Chloride (Sodium Chloride 0.9%) 1,000 mls @ 0 mls/hr IV .Q0M PRN PRN Reason: hypotension or symptomatic Sodium Chloride (Sodium Chloride 0.9%) 1,000 mls @ 0 mls/hr IV .Q0M PRN PRN Reason: hypotension or symptomatic Albumin Human (Albumin) 12.5 gm in 50 mls @ 60 mls/hr IV PRN PRN PRN Reason: Hypotension and/or symptomatic Ipratropium [place] (Ipratropium 0.5 Mg/2.5 Ml Neb) 0.5 mg INHALATION Q6H.RESP [facility] Last Admin: 06/18/25 13:33 Dose: 0.5 mg Lactulose (Lactulose Oral Liq 20 Gm/30 Ml Udc) 20 gm PO Q12H PRN PRN Reason: CONSTIPATION Levalbuterol HCl (Levalbuterol 0.63 Mg/3 Ml Neb) 0.63 mg INHALATION Q6H.RESP [facility] Last Admin: 06/18/25 13:33 Dose: 0.63 mg Levothyroxine Sodium (Levothyroxine 200 Mcg Tablet) 200 mcg PO DAILY [facility] Last Admin: 06/18/25 04:16 Dose: 200 mcg Lidocaine (Lidocaine 5% Patch) 1 patch TOPICAL [id number] [facility] Last Admin: 06/18/25 04:13 Dose: Not Given Metoclopramide HCl (Metoclopramide 5 Mg/Ml Sdv 2 Ml) 5 mg IVP Q6H PRN PRN Reason: NAUSEA AND VOMITING Last Admin: 06/16/25 05:15 Dose: 5 mg Midodrine (Midodrine 5 Mg Tablet) 10 mg PO TID [facility] Last Admin: 06/18/25 12:26 Dose: 10 mg Montelukast Sodium (Montelukast Sodium 10 Mg Tablet) 10 mg PO BEDTIME [facility] Last Admin: 06/17/25 20:02 Dose: 10 mg Morphine Sulfate (Morphine 4 Mg/Ml Sdv 1 Ml) 1 mg IVP Q4H PRN PRN Reason: SEVERE PAIN Last Admin: 06/17/25 14:20 Dose: 1 mg Ondansetron HCl (Ondansetron 2 Mg/Ml Sdv 2 Ml) 4 mg IVP Q8H PRN PRN Reason: vomiting, or N/V if npo Last Admin: 06/16/25 01:08 Dose: 4 mg Pantoprazole Sodium (Pantoprazole Dr 40 Mg Tablet) 40 mg PO DAILY [facility] Last Admin: 06/18/25 04:16 Dose: 40 mg Prednisone (Prednisone 20 Mg Tablet) 40 mg PO DAILY [facility] Stop: 06/19/25 04:59 Last Admin: 06/18/25 04:17 Dose: 40 mg Pyridostigmine [place] (Pyridostigmine 60 Mg Tablet) 60 mg PO TID [facility] Last Admin: 06/18/25 12:26 Dose: 60 mg Senna/Docusate Sodium (Sennosides-Docusate Tablet) 1 tab PO BID PRN PRN Reason: CONSTIPATION Trazodone HCl (Trazodone 50 Mg Tablet) 50 mg PO BEDTIME PRN PRN Reason: RESTLESSNESS Last Admin: 06/15/25 20:20 Dose: 50 mg Vancomycin HCl (Vancomycin 125 Mg Capsule) 500 mg PO Q6H [facility] Last Admin: 06/18/25 12:24 Dose: 500 mg Discontinued Medications Albuterol Sulfate (Albuterol 2.5 Mg/3 Ml Neb) 2.5 mg INHALATION QID.RESPIRATORY [facility] Last Admin: 06/10/25 15:50 Dose: 2.5 mg Albuterol Sulfate (Albuterol 2.5 Mg/3 Ml Neb) 2.5 mg INHALATION ONCE PRN PRN Reason: WHEEZING Alteplase, Recombinant (Alteplase 1 Mg/Ml Sdv 2 Ml) 2 mg INTRACATH ONCE ONE; Protocol Stop: 06/17/25 07:10 Last Admin: 06/17/25 08:10 Dose: 2 mg Alteplase, Recombinant (Alteplase 1 Mg/Ml Sdv 2 Ml) 2 mg INTRACATH ONCE ONE Stop: 06/17/25 08:01 Last Admin: 06/17/25 16:50 Dose: Not Given Amiodarone HCl (Amiodarone 200 Mg Tablet) 200 mg PO DAILY [facility] Last Admin: 06/15/25 04:47 Dose: 200 mg Amiodarone HCl (Amiodarone 200 Mg Tablet) 400 mg PO BIDWM [facility] Last Admin: 06/16/25 08:15 Dose: 400 mg Atorvastatin Calcium (Atorvastatin 40 Mg Tablet) 40 mg PO DAILY [facility] Last Admin: 06/12/25 05:28 Dose: 40 mg Bisoprolol Fumarate (Bisoprolol 5 Mg Tablet) 1.25 mg PO DAILY [facility] Last Admin: 06/12/25 12:51 Dose: Not Given Bisoprolol Fumarate (Bisoprolol 5 Mg Tablet) 2.5 mg PO DAILY [facility] Bupivacaine HCl (Bupivacaine 0.25% Inj 30 Ml) Confirm Administered Dose 30 ml .ROUTE .[facility] ONE Stop: 06/09/25 10:28 Bupivacaine HCl (Bupivacaine 0.25% Inj 30 Ml) 30 ml INJECTION ONCE ONE Stop: 06/09/25 11:00 Last Admin: 06/09/25 12:43 Dose: 6 ml Calcium Chloride (Calcium Chloride 10% Syr 10 Ml) 1 gm IVP ONCE ONE Stop: 06/17/25 04:42 Last Admin: 06/17/25 04:42 Dose: 1 gm Cefazolin Sodium (Cefazolin 1,000 Mg Sdv) Confirm Administered Dose 3,000 mg .ROUTE .[facility] ONE Stop: 06/09/25 12:38 Last Admin: 06/09/25 13:51 Dose: Not Given Cefazolin Sodium (Cefazolin 2,000 Mg Sdv) 3,000 mg IVP ONCE ONE; Protocol Stop: 06/09/25 12:26 Last Admin: 06/09/25 12:38 Dose: 3,000 mg Cetirizine HCl (Cetirizine 10 Mg Tablet) 10 mg PO DAILY PRN PRN Reason: Allergy Symptoms Cetirizine HCl (Cetirizine 10 Mg Tablet) 10 mg PO DAILY [facility] Last Admin: 06/12/25 05:27 Dose: 10 mg Clopidogrel Bisulfate (Clopidogrel 300 Mg Tablet) 600 mg PO ONCE ONE Stop: 06/17/25 05:18 Last Admin: 06/17/25 06:00 Dose: 600 mg Lidocaine HCl 15 ml/ Al Hydrox /Mg Hydrox/Simethicone 30 ml/Sucralfate 1 gm 0 ml PO ONCE ONE Stop: 06/17/25 20:33 Last Admin: 06/17/25 20:46 Dose: 1 suspension Cyclobenzaprine HCl (Cyclobenzaprine 10 Mg Tablet) 10 mg PO BEDTIME [facility] Last Admin: 06/09/25 21:36 Dose: 10 mg Dexamethasone (Dexamethasone 4 Mg/Ml Inj) 4 mg IVP Q5M PRN PRN Reason: Nausea unrelieved by Reglan Stop: 06/10/25 12:18 Docusate Sodium (Docusate Sodium 100 Mg Capsule) 100 mg PO ONCE ONE Stop: 06/12/25 07:31 Last Admin: 06/12/25 09:03 Dose: 100 mg Epinephrine HCl (Epinephrine 0.1 Mg/Ml Syr 10 Ml) 1 mg IVP ONCE ONE Stop: 06/17/25 04:42 Last Admin: 06/17/25 04:42 Dose: 1 mg Famotidine (Famotidine 20 Mg/2 Ml Inj) 20 mg IVP ONCE PRN PRN Reason: HEARTBURN Fentanyl (Fentanyl 50 Mcg/Ml Inj 2ml) 50 mcg IVP Q10M PRN PRN Reason: Preop Pain Fentanyl (Fentanyl 50 Mcg/Ml Inj 2ml) 100 mcg IVP ONCE PRN PRN Reason: Per anesthesia for block Fentanyl (Fentanyl 50 Mcg/Ml Inj 2ml) Confirm Administered Dose 100 mcg .ROUTE .STK-MED ONE Stop: 06/09/25 11:59 Fentanyl (Fentanyl 50 Mcg/Ml Inj 2ml) 50 mcg IVP Q5M PRN PRN Reason: Pain level 6-10 PACU Phase I Stop: 06/10/25 12:18 Fentanyl (Fentanyl 50 Mcg/Ml Inj 2ml) Confirm Administered Dose 100 mcg .ROUTE .STK-MED ONE Stop: 06/17/25 09:58 Fidaxomicin (Fidaxomicin 200 Mg Tablet) 200 mg PO BID [facility]; Protocol Stop: 06/25/25 05:01 Last Admin: 06/16/25 04:58 Dose: 200 mg Fluconazole (Fluconazole 100 Mg Tablet) 100 mg PO DAILY [facility] Stop: 06/12/25 20:59 Last Admin: 06/12/25 05:27 Dose: 100 mg Furosemide (Furosemide 10 Mg/Ml Sdv 10ml) 80 mg IVP ONCE ONE Stop: 06/04/25 12:51 Last Admin: 06/04/25 13:13 Dose: 80 mg Furosemide (Furosemide 10 Mg/Ml Sdv 10ml) 80 mg IVP BID [facility] Last Admin: 06/11/25 05:26 Dose: 80 mg Furosemide (Furosemide 40 Mg Tablet) 40 mg PO BID@08,16 [facility] Last Admin: 06/13/25 09:22 Dose: 40 mg Furosemide (Furosemide 10 Mg/Ml Sdv 10ml) 60 mg IVP Q12H [facility] Last Admin: 06/16/25 09:59 Dose: 60 mg Gabapentin (Gabapentin 300 Mg Capsule) 300 mg PO BEDTIME [facility] Last Admin: 06/13/25 20:33 Dose: 300 mg Heparin Sodium (Porcine) (Heparin, Porcine 1,000 Unit/Ml Inj 10 Ml) 10,000 unit INTRACATH ONCE ONE Stop: 06/09/25 07:34 Last Admin: 06/09/25 14:43 Dose: Not Given Heparin Sodium (Porcine) (Heparin, Porcine 1,000 Unit/Ml Inj 10 Ml) 1,000 unit IV ONCE ONE Stop: 06/09/25 07:34 Last Admin: 06/09/25 14:44 Dose: Not Given Heparin Sodium (Porcine) (Heparin, Porcine 1,000 Unit/Ml Inj 10 Ml) 10,000 unit IRRIGATION ONCE ONE Stop: 06/09/25 11:01 Last Admin: 06/09/25 12:43 Dose: 6,000 unit Heparin Sodium (Porcine) (Heparin, Porcine 1,000 Unit/Ml Inj 10 Ml) 10,000 unit INTRACATH ONCE ONE Stop: 06/09/25 14:36 Last Admin: 06/09/25 18:39 Dose: 10,000 unit Heparin Sodium (Porcine) (Heparin, Porcine 1,000 Unit/Ml Inj 10 Ml) 1,000 unit IV ONCE ONE Stop: 06/09/25 14:36 Last Admin: 06/09/25 18:39 Dose: 1,000 unit Heparin Sodium (Porcine) (Heparin 5,000 Unit/Ml Inj 1 Ml) 5,000 unit SUBCUT Q12H [facility] Last Admin: 06/16/25 20:27 Dose: 5,000 unit Heparin Sodium (Porcine) (Heparin, Porcine 1,000 Unit/Ml Inj 10 Ml) 1,000 unit IV ONCE ONE Stop: 06/11/25 09:10 Last Admin: 06/11/25 12:50 Dose: 1,000 unit Heparin Sodium (Porcine) (Heparin, Porcine 1,000 Unit/Ml Inj 10 Ml) 1,000 unit IV ONCE ONE Stop: 06/12/25 07:33 Last Admin: 06/12/25 10:00 Dose: 1,000 unit Heparin Sodium (Porcine) (Heparin, Porcine 1,000 Unit/Ml Inj 10 Ml) 1,000 unit IV ONCE ONE Stop: 06/14/25 07:51 Last Admin: 06/14/25 17:22 Dose: Not Given Heparin Sodium (Porcine) (Heparin, Porcine 1,000 Unit/Ml Inj 10 Ml) 1,000 unit IV ONCE ONE Stop: 06/15/25 06:46 Last Admin: 06/15/25 11:50 Dose: 1,000 unit Heparin Sodium (Porcine) (Heparin, Porcine 1,000 Unit/Ml Inj 10 Ml) 10,000 unit INTRACATH ONCE ONE Stop: 06/17/25 04:23 Last Admin: 06/17/25 16:49 Dose: Not Given Heparin Sodium (Porcine) (Heparin, Porcine 1,000 Unit/Ml Inj 10 Ml) 1,000 unit IV ONCE ONE Stop: 06/17/25 04:23 Last Admin: 06/17/25 16:49 Dose: Not Given Heparin Sodium (Porcine) (Heparin 5,000 Unit/Ml Inj 1 Ml) 0 unit IVP PRN PRN; Protocol PRN Reason: Heparin Weight Based Protocol -Subsequent Bolus Heparin Sodium (Porcine) (Heparin 5,000 Unit/Ml Inj 1 Ml) 0 unit IVP ONCE ONE; Protocol Stop: 06/17/25 04:57 Last Admin: 06/17/25 05:28 Dose: Not Given Heparin Sodium (Porcine) (Heparin 5,000 Unit/Ml Inj 1 Ml) Confirm Administered Dose 10,000 unit .ROUTE .STK-MED ONE Stop: 06/17/25 09:58 Heparin Sodium (Porcine) (Heparin 5,000 Unit/Ml Inj 1 Ml) Confirm Administered Dose 5,000 unit .ROUTE .STK-MED ONE Stop: 06/17/25 11:48 Hydromorphone HCl (Hydromorphone 1 Mg/Ml Inj 1ml) 0.25 mg IVP Q10M PRN PRN Reason: Pain level 4-6 PACU Phase I Stop: 06/10/25 12:18 Hydromorphone HCl (Hydromorphone 1 Mg/Ml Inj 1ml) 0.5 mg IVP Q10M PRN PRN Reason: Pain level 7-10 PACU Phase I Stop: 06/10/25 12:18 Sodium Chloride (Sodium Chloride 0.9%) 1,000 mls @ 999 mls/hr IV .Q1H1M ONE Stop: 06/03/25 15:42 Last Infusion: 06/03/25 17:41 Dose: Infused Sodium Bicarbonate 150 meq/ (Dextrose) 1,150 mls @ 35 mls/hr IV .Q24H [facility] Last Infusion: 06/05/25 21:43 Dose: Infused Lactated Ringer's (Lactated Ringers) 1,000 mls @ 999 mls/hr IV .Q1H1M ONE Stop: 06/03/25 18:52 Last Infusion: 06/03/25 19:23 Dose: Infused Dextrose (D5w) 1,000 mls @ 150 mls/hr IV .Q6H40M MAL Stop: 06/04/25 07:39 Last Admin: 06/04/25 03:07 Dose: Not Given Lactated Ringer's (Lactated Ringers) 500 mls @ 999 mls/hr IV .Q31M ONE Stop: 06/04/25 07:21 Last Infusion: 06/04/25 08:10 Dose: Infused Sodium Chloride (Sodium Chloride 0.9%) 1,000 mls @ 0 mls/hr IV .Q0M PRN PRN Reason: hypotension or symptomatic Albumin Human (Albumin) 12.5 gm in 50 mls @ 60 mls/hr IV PRN PRN PRN Reason: Hypotension and/or symptomatic Heparin Sodium (Porcine) (Heparin, Porcine) Confirm Administered Dose 10 mls @ as directed .ROUTE .STK-MED ONE Stop: 06/09/25 10:27 Sodium Chloride (Sodium Chloride 0.9%) 1,000 mls @ 30 mls/hr IV .Q24H [facility] Stop: 06/10/25 11:29 Last Admin: 06/09/25 13:51 Dose: Not Given Sodium Chloride (Sodium Chloride 0.9%) 1,000 mls @ 30 mls/hr IV .Q24H [facility] Last Admin: 06/09/25 13:51 Dose: Not Given Sodium Chloride (Sodium Chloride 0.9%) 500 mls @ 999 mls/hr IV .Q31M PRN PRN Reason: HYPOTENSION Albumin Human (Albumin) 12.5 gm in 50 mls @ 60 mls/hr IV PRN PRN PRN Reason: Hypotension and/or symptomatic Vancomycin HCl / Sodium (Chloride) 250 mls @ 0 mls/hr [id number] PROTOCOL MAL; Protocol Piperacillin Sod/Tazobactam (Sod / Sodium Chloride) 50 mls @ 0 mls/hr [id number] CONT MAL; Protocol Piperacillin Sod/Tazobactam (Sod 3.375 gm/ Sodium Chloride) 50 mls @ 12.5 mls/hr IV Q8H MAL Last Infusion: 06/11/25 13:39 Dose: Infused Vancomycin HCl (Vancocin) 2,000 mg in 400 mls @ 200 mls/hr IV ONCE ONE Stop: 06/10/25 17:59 Vancomycin HCl (Vancocin) 2,000 mg in 400 mls @ 200 mls/hr IV ONCE ONE Stop: 06/10/25 22:59 Last Admin: 06/10/25 21:19 Dose: Not Given Piperacillin Sod/Tazobactam (Sod 3.375 gm/ Sodium Chloride) 50 mls @ 12.5 mls/hr IV Q12H [facility] Stop: 06/16/25 23:59 Last Infusion: 06/17/25 19:35 Dose: Infused Amiodarone HCl/Dextrose (Nexterone) 150 mg in 100 mls @ 400 mls/hr IV ONCE ONE Stop: 06/13/25 09:47 Last Infusion: 06/13/25 10:03 Dose: Infused AMIODARONE HCL/D5W (Amiodarone 900 Mg/500 Ml-D5w) 900 mg in 500 mls @ 0 mls/hr IV .Q0M [facility]; Protocol Last Titration: 06/17/25 19:37 Dose: Infused Amiodarone HCl/Dextrose (Nexterone) 150 mg in 100 mls @ 400 mls/hr IV ONCE ONE Stop: 06/15/25 21:17 Last Infusion: 06/15/25 21:53 Dose: Infused Amiodarone HCl/Dextrose (Nexterone) 150 mg in 100 mls @ 400 mls/hr IV ONCE ONE Stop: 06/16/25 09:14 Last Infusion: 06/16/25 10:28 Dose: Infused AMIODARONE HCL/D5W (Amiodarone 900 Mg/500 Ml-D5w) 900 mg in 500 mls @ 16.667 mls/hr IV .Q24H MAL; Protocol Last Titration: 06/18/25 09:32 Dose: Infused Sodium Chloride (Sodium Chloride 0.9%) 1,000 mls @ 75 mls/hr IV .[id number] MAL Stop: 06/16/25 15:39 Sodium Chloride (Sodium Chloride 0.9%) 500 mls @ 75 mls/hr IV .Q6H40M [facility] Last Admin: 06/17/25 19:35 Dose: Not Given Heparin Sodium/Sodium Chloride (Heparin Drip) 25,000 unit in 500 mls @ 0 mls/hr IV CONT MAL; Protocol Last Titration: 06/17/25 19:36 Dose: Infused Magnesium Sulfate/Dextrose (Magnesium Sulfate Premix) 1 gm in 100 mls @ 200 m ls/hr IV ONCE ONE Stop: 06/17/25 05:26 Last Infusion: 06/17/25 19:35 Dose: Infused Albumin Human (Albumin) 50 g in 200 mls @ 60 mls/hr IV ONCE ONE Stop: 06/17/25 08:53 Last Infusion: 06/17/25 09:29 Dose: Infused Lidocaine HCl (Xylocaine) Confirm Administered Dose 20 mls @ as directed .ROUTE .STK-MED ONE Stop: 06/17/25 11:09 Sodium Chloride (Sodium Chloride 0.9%) Confirm Administered Dose 1,000 mls @ as directed .ROUTE .STK-MED ONE Stop: 06/17/25 11:27 Iohexol (Iohexol 350 Mg/Ml 500 Ml Btl (Per Ml)) 0 ml PO ONCE ONE Stop: 06/08/25 12:37 Last Admin: 06/08/25 12:37 Dose: 30 ml Iohexol (Iohexol 350 Mg/Ml 500 Ml Btl (Per Ml)) 0 ml IV ONCE ONE Stop: 06/10/25 12:38 Last Admin: 06/10/25 12:38 Dose: 100 ml Iohexol (Iohexol 350 Mg/Ml 500 Ml Btl (Per Ml)) 0 ml IV ONCE ONE Stop: 06/17/25 13:37 Last Admin: 06/17/25 13:36 Dose: 100 ml Ipratropium [place] (Ipratropium 0.5 Mg/2.5 Ml Neb) 0.5 mg INHALATION ONCE PRN PRN Reason: WHEEZING Lactulose (Lactulose Oral Liq 20 Gm/30 Ml Udc) 10 gm PO DAILY PRN; Protocol PRN Reason: Constipation (see protocol) Lactulose (Lactulose Oral Liq 20 Gm/30 Ml Udc) 10 gm PO DAILY [facility] Last Admin: 06/08/25 06:27 Dose: Not Given Lactulose (Lactulose Oral Liq 20 Gm/30 Ml Udc) 20 gm PO Q6H [facility] Last Admin: 06/09/25 13:53 Dose: Not Given Lactulose (Lactulose Oral Liq 20 Gm/30 Ml Udc) 20 gm PO Q12H [facility] Last Admin: 06/15/25 04:47 Dose: 20 gm Levothyroxine Sodium (Levothyroxine 150 Mcg Tablet) 150 mcg PO DAILY [facility] Last Admin: 06/06/25 05:11 Dose: 150 mcg Lidocaine HCl (Lidocaine 1% Inj 20 Ml) 0.1 ml INTRADERMA PRN PRN PRN Reason: anesthetic prior to IV start Stop: 06/10/25 11:15 Lidocaine/Epinephrine (Lidocaine-Epi 1% Pf 1:200,000 30 Ml Sdv) Confirm Administered Dose 30 ml .ROUTE .[facility] ONE Stop: 06/09/25 10:28 Lidocaine/Epinephrine (Lidocaine-Epi 1% Pf 1:200,000 30 Ml Sdv) 30 ml INJECTION ONCE ONE Stop: 06/09/25 11:01 Last Admin: 06/09/25 12:43 Dose: 6 ml Meperidine HCl (Meperidine 50 Mg/Ml Inj) 12.5 mg IVP Q5M PRN PRN Reason: Shivering PACU Phase I Stop: 06/10/25 12:18 Methylprednisolone Sodium Succinate (Methylprednisolone Sod Succ 40 Mg/Ml Inj) 40 mg IVP Q8H [facility] Last Admin: 06/12/25 09:04 Dose: 40 mg Methylprednisolone Sodium Succinate (Methylprednisolone Sod Succ 40 Mg/Ml Inj) 40 mg IVP Q12H [facility] Last Admin: 06/13/25 05:05 Dose: 40 mg Metoclopramide HCl (Metoclopramide 5 Mg/Ml Sdv 2 Ml) 10 mg IVP ONCE PRN PRN Reason: N/V if zofran ineffective Metoclopramide HCl (Metoclopramide 5 Mg/Ml Sdv 2 Ml) 10 mg IVP Q5M PRN PRN Reason: Nausea unrelieved by Zofran Stop: 06/10/25 12:18 Metolazone (Metolazone 5 Mg Tablet) 5 mg PO DAILY [facility] Last Admin: 06/10/25 04:16 Dose: 5 mg Metoprolol Tartrate (Metoprolol Tartrate 25 Mg Tablet) 12.5 mg PO BID@0900,2100 [facility] Last Admin: 06/12/25 10:24 Dose: Not Given Midazolam HCl (Midazolam 1 Mg/Ml Inj 2 Ml) 2 mg IVP Q5M PRN PRN Reason: Preop Anxiety Midazolam HCl (Midazolam 1 Mg/Ml Inj 5 Ml) 5 mg IVP ONCE PRN PRN Reason: Per anesthesia for block Midazolam HCl (Midazolam 1 Mg/Ml Inj 2 Ml) Confirm Administered Dose 2 mg .ROUTE .STK-MED ONE Stop: 06/09/25 11:59 Midazolam HCl (Midazolam 1 Mg/Ml Inj 2 Ml) Confirm Administered Dose 2 mg .ROUTE .STK-MED ONE Stop: 06/17/25 09:58 Midodrine (Midodrine 5 Mg Tablet) 5 mg PO TID [facility] Last Admin: 06/07/25 12:57 Dose: 5 mg Midodrine (Midodrine 5 Mg Tablet) 10 mg PO TID [facility] Last Admin: 06/09/25 05:31 Dose: 10 mg Midodrine (Midodrine 5 Mg Tablet) 5 mg PO TID [facility] Last Admin: 06/12/25 05:57 Dose: Not Given Midodrine (Midodrine 5 Mg Tablet) 5 mg PO TID PRN PRN Reason: Sbp less than 120 mmhg Last Admin: 06/13/25 11:13 Dose: 5 mg Midodrine (Midodrine 5 Mg Tablet) 5 mg PO TID [facility] Midodrine (Midodrine 5 Mg Tablet) 5 mg PO TID [facility] Last Admin: 06/16/25 04:59 Dose: 5 mg Midodrine (Midodrine 5 Mg Tablet) 5 mg PO ONCE ONE Stop: 06/16/25 08:54 Last Admin: 06/16/25 10:00 Dose: 5 mg Morphine Sulfate (Morphine 4 Mg/Ml Sdv 1 Ml) 2 mg IVP Q2M PRN PRN Reason: Pain level 6-10 PACU Phase I Stop: 06/10/25 12:18 Morphine Sulfate (Morphine 4 Mg/Ml Sdv 1 Ml) 2 mg IVP Q5M PRN PRN Reason: Pain level 2-5 PACU Phase I Stop: 06/10/25 12:18 Morphine Sulfate (Morphine 4 Mg/Ml Sdv 1 Ml) 0 mg IVP Q5M PRN PRN Reason: Breakthrough Pain PACU PhaseII Morphine Sulfate (Morphine 4 Mg/Ml Sdv 1 Ml) Confirm Administered Dose 4 mg .ROUTE .STK-MED ONE Stop: 06/17/25 05:37 Nitroglycerin (Nitroglycerin 5 Mg/Ml Sdv 10 Ml) Confirm Administered Dose 50 mg .ROUTE .STK-MED ONE Stop: 06/17/25 11:39 Ondansetron HCl (Ondansetron 2 Mg/Ml Sdv 2 Ml) 4 mg IVP Q5M PRN PRN Reason: NAUSEA AND VOMITING Ondansetron HCl (Ondansetron 2 Mg/Ml Sdv 2 Ml) 4 mg IVP Q15M PRN PRN Reason: Nausea/Vomiting PACU PHASE II Ondansetron HCl (Ondansetron 2 Mg/Ml Sdv 2 Ml) 4 mg IVP Q5M PRN PRN Reason: Nausea PACU Phase I Stop: 06/10/25 12:18 Pharmacy Consult (Pharmacy Consult For Fall Risk) 1 each XX ONCE ONE; Protocol Stop: 06/12/25 21:32 Propofol (Propofol 10 Mg/Ml Sdv 20 Ml) Confirm Administered Dose 200 mg .ROUTE .STK-MED ONE Stop: 06/09/25 11:59 Propofol (Propofol 10 Mg/Ml Sdv 20 Ml) Confirm Administered Dose 200 mg .ROUTE .STK-MED ONE Stop: 06/09/25 13:04 Pyridostigmine [place] (Pyridostigmine 60 Mg Tablet) 60 mg PO BID [facility] Last Admin: 06/17/25 04:34 Dose: 60 mg Senna/Docusate Sodium (Sennosides-Docusate Tablet) 1 tab PO BID [facility] Last Admin: 06/15/25 04:47 Dose: 1 tab Sodium Bicarbonate (Sodium Bicarbonate 1 Meq/Ml Sdv 50ml) Confirm Administered Dose 150 meq .ROUTE .STK-MED ONE Stop: 06/04/25 01:27 Sodium Bicarbonate (Sodium Bicarbonate 8.4% 1 Meq/Ml 50ml Syr) 50 meq IVP ONCE ONE Stop: 06/17/25 04:42 Last Admin: 06/17/25 04:42 Dose: 50 meq Vancomycin HCl (Vancomycin 1,000 Mg Sdv (Pharmacy Mix)) 0 mg XX PRN PRN PRN Reason: Pharmacy to Dose Zolpidem Tartrate (Zolpidem 5 Mg Tablet) 2.5 mg PO BEDTIME PRN PRN Reason: INSOMNIA Last Admin: 06/11/25 20:20 Dose: 2.5 mg Allergies adhesive tape Allergy (Intermediate, Verified 03/03/25 10:26) rash, itch, DERMABOND DERMABOND 2-octyl cyanoacrylate Allergy (Verified 03/03/25 10:26) ALGY-Blister DANNY Inhibitors Allergy (Verified 03/03/25 10:26) ADR-Cough povidone-iodine (From Betadine) Allergy (Verified 03/03/25 10:26) ALGY-Blister propranolol (From Inderal LA) Allergy (Verified 03/03/25 10:26) ADR-Depression soap (From Betadine) Allergy (Verified 03/03/25 10:26) ALGY-Blister verapamil Allergy (Verified 03/03/25 10:26) ADR-Headache zolpidem (From Ambien) Adverse Reaction (Verified 06/17/25 11:09) ADR-Confusion Home Medications carbidopa ER 50 mg-levodopa 200 mg tablet,extended release 1 tab PO TID 09/09/19 [History Confirmed 06/03/25] montelukast 10 mg tablet (Singulair) 10 mg PO BEDTIME 09/09/19 [History Confirmed 06/03/25] gabapentin 300 mg capsule 300 mg PO BEDTIME 11/29/20 [History Confirmed 06/03/25] cetirizine 10 mg tablet (Zyrtec) 10 mg PO DAILY PRN Allergy Symptoms 05/11/21 [History Confirmed 06/03/25] sennosides 8.6 mg-docusate sodium 50 mg tablet (Senna Plus) 1 tab PO DAILY PRN Constipation 12/05/21 [History Confirmed 06/03/25] chlorpheniramine maleate 4 mg tablet (Aller-Chlor) 4 mg PO BEDTIME PRN Itching 06/12/22 [History Confirmed 06/03/25] multivitamin 1 tab PO DAILY 06/12/22 [History Confirmed 06/03/25] fluticasone propionate 50 mcg/actuation nasal spray,suspension (Flonase Allergy Relief) 2 spray intranasal .hs 07/12/22 [History Confirmed 06/03/25] pantoprazole 40 mg tablet,delayed release 40 mg PO BID #90 tabs 07/12/22 [Rx Confirmed 06/03/25] [id number]-[id number] capsule (Glucosamine Complex-MSM capsule) 1 cap PO BID 01/17/23 [History Confirmed 06/03/25] turmeric root extract 500 mg capsule 3,000 mg PO DAILY 11/22/23 [History Confirmed 06/03/25] diclofenac sodium 1 % topical gel See Rx Instructions .Route .COMPLEX #300 grams 05/22/24 [Rx Confirmed 06/03/25] cyclobenzaprine 10 mg tablet 10 mg PO BEDTIME 05/23/24 [History Confirmed 06/03/25] fluticasone 500 mcg-salmeterol 50 mcg/dose blistr powdr for inhalation (Advair Diskus) 1 inh inhalation BID 05/23/24 [History Confirmed 06/03/25] zolpidem 5 mg tablet (Ambien) 2.5 mg PO BEDTIME PRN Insomnia 05/23/24 [History Confirmed 06/03/25] atorvastatin 40 mg tablet 40 mg PO DAILY #90 tabs 12/30/24 [Rx Confirmed 06/03/25] bisoprolol fumarate 5 mg tablet 2.5 mg (1/2 x 5 mg) PO DAILY #45 tabs 12/30/24 [Rx Confirmed 06/03/25] torsemide 20 mg tablet 10 mg PO DAILY 02/03/25 [History Confirmed 06/03/25] hydrocodone 5 mg-acetaminophen 325 mg tablet 1 tab PO Q6H PRN Pain 03/03/25 [History Confirmed 06/03/25] albuterol sulfate 90 mcg/actuation aerosol inhaler 2 puff inhalation QID PRN Wheezing 06/03/25 [History Confirmed 06/03/25] clindamycin phosphate 1 % lotion 1 applic topical DAILY PRN skin rash 06/03/25 [History Confirmed 06/03/25] estradiol 0.01% (0.1 mg/gram) vaginal cream 1 g vaginal DAILY 06/03/25 [History Confirmed 06/03/25] hydroxychloroquine 200 mg tablet (Plaquenil) See Rx Instructions .Route .COMPLEX 06/03/25 [History Confirmed 06/03/25] levothyroxine 150 mcg tablet (Synthroid) 150 mcg PO DAILY 06/03/25 [History Confirmed 06/03/25] lidocaine 5 % topical patch 1 patch topical DAILY PRN Pain 06/03/25 [History Confirmed 06/03/25] mometasone 0.1 % topical solution 1 applic topical DAILY PRN skin rash 06/03/25 [History Confirmed 06/03/25] sacubitril 24 mg-valsartan 26 mg tablet (Entresto) See Rx Instructions .Route .COMPLEX 06/03/25 [History Confirmed 06/03/25] triamcinolone acetonide 0.1 % topical cream 1 applic topical DAILY PRN skin rash 06/03/25 [History Confirmed 06/03/25] allopurinol 100 mg tablet 200 mg (2 x 100 mg) PO DAILY #180 tabs 06/15/25 [Rx] Discharge Plan Discharge Patient Disposition: Home Health Service Condition: Stable Prescriptions: No Action sennosides-docusate sodium [Senna Plus] 8.6-50 mg tablet 1 tab PO DAILY PRN (Reason: Constipation) fluticasone propionate [Flonase Allergy Relief] 50 mcg/actuation spray,suspension 2 spray intranasal .hs Rx Instructions: administer into each nostril multivitamin Tablet 1 tab PO DAILY carbidopa-levodopa 50-200 mg tablet extended release 1 tab PO TID montelukast [Singulair] 10 mg tablet 10 mg PO BEDTIME cyclobenzaprine 10 mg tablet 10 mg PO BEDTIME zolpidem [Ambien] 5 mg tablet 2.5 mg PO BEDTIME PRN (Reason: Insomnia) gabapentin 300 mg capsule 300 mg PO BEDTIME fluticasone propion-salmeterol [Advair Diskus] 500-50 mcg/dose blister with device 1 inh inhalation BID chlorpheniramine maleate [Aller-Chlor] 4 mg tablet 4 mg PO BEDTIME PRN (Reason: Itching) Rx Instructions: do not exceed 2 doses per 24 hrs pantoprazole 40 mg tablet,delayed release (DR/EC) 40 mg PO BID Qty: 90 1RF Glucosamine Complex-MSM Capsule 1 cap PO BID turmeric root extract 500 mg capsule 3,000 mg PO DAILY bisoprolol fumarate 5 mg tablet 2.5 mg PO DAILY Qty: 45 1RF atorvastatin 40 mg tablet 40 mg PO DAILY Qty: 90 3RF hydrocodone-acetaminophen 5-325 mg tablet 1 tab PO Q6H PRN (Reason: Pain) diclofenac sodium 1 % gel See Rx Instructions .ROUTE .COMPLEX Qty: 300 3RF Dose Instruction: APPLY 4 GRAMS TO AFFECTED AREA FOUR TIMES A DAY NEEDED FOR JOINT PAIN Rx Instructions: APPLY 4 GRAMS TO AFFECTED AREA FOUR TIMES A DAY NEEDED FOR JOINT PAIN torsemide 20 mg tablet 10 mg PO DAILY allopurinol 100 mg tablet 200 mg PO DAILY Qty: 180 0RF cetirizine [Zyrtec] 10 mg Tablet 10 mg PO DAILY PRN (Reason: Allergy Symptoms) albuterol sulfate 90 mcg/actuation HFA aerosol inhaler 2 puff INHALATION QID PRN (Reason: Wheezing) triamcinolone acetonide 0.1 % cream 1 applic TOPICAL DAILY PRN (Reason: skin rash) lidocaine 5 % adhesive patch,medicated 1 patch topical DAILY PRN (Reason: Pain) estradiol 0.01 % (0.1 mg/gram) cream 1 g VAGINAL DAILY clindamycin phosphate 1 % lotion 1 applic TOPICAL DAILY PRN (Reason: skin rash) mometasone 0.1 % solution 1 applic TOPICAL DAILY PRN (Reason: skin rash) levothyroxine [Synthroid] 150 mcg tablet 150 mcg PO DAILY hydroxychloroquine [Plaquenil] 200 mg tablet See Rx Instructions .ROUTE .COMPLEX Rx Instructions: TAKE 2 TABLETS EVERY OTHER DAY ALTERNATING WITH 1 TABLET EVERY OTHER DAY. sacubitril-valsartan [Entresto] 24-26 mg tablet See Rx Instructions .ROUTE .COMPLEX Rx Instructions: Take 1 tablet by mouth in the AM and 2 tablets in the PM. Referrals: [facility] - [Outside] - 06/18/25 8:10 am Referral Note: Your Chair time w/ dialysis is Sunday, , and Sunday @ 0810. [facility] ([facility]) [Outside] Doyle Santizo MD [Physician, General Surgery] - 06/25/25 10:35 am Haider Cancino MD [Primary Care Provider, Family Practice] Patient Instructions: Acute Wound Care (DC), Opioid Safety, Post Anesthesia Care, Patient Portal & Gisela Instructions Activity Restrictions/Additional Instructions: MICHAEL JARAMILLO WITH [employer] CALLED HER PHONE NUMBER IS [phone] CALL WITH QUESTIONS, Transfer Attestations Time Spent in Transfer Care: greater than 30 min Status at Transfer: Cognitive status at transfer: cognitively intact ; Behavioral status at transfer: cooperative ; Functional status at transfer: other assisted ambulation ; Overall status at transfer: patient is progressing back to baseline Quality Metrics Clinical Quality Measures [ No reported AMI, CVA or VTE this stay] Coding Level of Care Code 85484 Total time (in minutes) for Discharge: 65 Diagnoses Cardiac arrest with ventricular fibrillation I46.9; I49.01 Torsades de pointes I47.21 Nonischemic cardiomyopathy I42.8 Acute on chronic combined systolic and diastolic congestive heart failure I50.43 Acute renal failure with oliguria N17.9; R34 Sleep apnea treated with continuous positive airway pressure (CPAP) G47.30 Essential hypertension I10 Mild aortic stenosis I35.0 Atrial fibrillation with RVR I48.91 Elevated d-dimer R79.89 MGUS (monoclonal gammopathy of unknown significance) D47.2 Rhinovirus infection B34.8 C. difficile diarrhea A04.72 Acute on chronic respiratory failure with hypoxia J96.21 Chronicity: acute on chronic Pneumonia of both lower lobes due to infectious organism J18.9 Pneumonia type: due to unspecified organism Laterality: bilateral Lung location: lower lobe of lung
--- NOTE | 2025-06-18 17:51 | PC.NURSE ---
Called report to DEIRDRE Hong at [facility].
--- NOTE | 2025-06-18 19:41 | PC.NURSE ---
Belongings: All patient belongings were taken home by , patient confirmed.
== END 2025-06-18 19:16 | disposition short-term general hospital (02) | DRG 673 ==
LOC: ER 14:52 → ER IP 17:13 → MEDSURG 19:03 → ER IP 06-04 08:54 → ICU 06-10 12:00
PROVIDERS: Family Medicine; Hospitalist; Internal Medicine; Internal Medicine Nephrology; Student in an Organized Health Care Education/Training Program; Admitting Provider Internal Medicine; Emergency Provider Emergency Medicine; PCP Family Medicine; Visit Provider Student in an Organized Health Care Education/Training Program
PROC: 0JH60XZ Insertion of Tunneled Vascular Access Device into Chest Subcutaneous Tissue and Fascia, Open Approach (ICD-10-PCS; principal; 2025-06-09 12:00)
PROC: 027034Z Dilation of Coronary Artery, One Artery with Drug-eluting Intraluminal Device, Percutaneous Approach (ICD-10-PCS; principal; 2025-06-17 11:00)
PROC: 027034Z Dilation of Coronary Artery, One Artery with Drug-eluting Intraluminal Device, Percutaneous Approach (ICD-10-PCS; 2025-06-17 11:00)
DX: N17.9 Acute kidney failure, unspecified (principal); I46.9 Cardiac arrest, cause unspecified; I49.01 Ventricular fibrillation; I50.23 Acute on chronic systolic (congestive) heart failure; J18.9 Pneumonia, unspecified organism; J96.21 Acute and chronic respiratory failure with hypoxia; I42.8 Other cardiomyopathies; C90.00 Multiple myeloma not having achieved remission; E87.20 Acidosis, unspecified; I13.0 Hypertensive heart and chronic kidney disease with heart failure and stage 1 through stage 4 chronic kidney disease, or unspecified chronic kidney disease; G99.2 Myelopathy in diseases classified elsewhere; I47.21 Torsades de pointes; Z68.42 Body mass index [BMI] 45.0-49.9, adult; A04.72 Enterocolitis due to Clostridium difficile, not specified as recurrent; R13.10 Dysphagia, unspecified; N18.9 Chronic kidney disease, unspecified; G47.33 Obstructive sleep apnea (adult) (pediatric); Z99.89 Dependence on other enabling machines and devices; I35.0 Nonrheumatic aortic (valve) stenosis; I48.91 Unspecified atrial fibrillation; R00.1 Bradycardia, unspecified; Z85.828 Personal history of other malignant neoplasm of skin; M51.17 Intervertebral disc disorders with radiculopathy, lumbosacral region; M48.02 Spinal stenosis, cervical region; K21.9 Gastro-esophageal reflux disease without esophagitis; E03.9 Hypothyroidism, unspecified; F32.A Depression, unspecified; F41.9 Anxiety disorder, unspecified; G62.9 Polyneuropathy, unspecified; E78.5 Hyperlipidemia, unspecified; M10.9 Gout, unspecified; Z79.890 Hormone replacement therapy; I49.3 Ventricular premature depolarization; I95.1 Orthostatic hypotension; E66.01 Morbid (severe) obesity due to excess calories; B34.8 Other viral infections of unspecified site; D47.2 Monoclonal gammopathy
CPT/HCPCS: 36415; 36416; 36600; 51702; 71045; 71250; 71275; 74170; 74175; 74176; 74178; 74220; 76705; 76770; 77001; 80048; 80051; 80053; 81001; 82140; 82306; 82330; 82436; 82533; 82550; 82570; 82575; 82607; 82728; 82746; 82805; 82962; 83036; 83540; 83550; 83605; 83735; 83880; 83883; 84100; 84155; 84156; 84165; 84166; 84300; 84439; 84443; 84484; 85025; 85347; 85378; 86036; 86140; 86160; 86162; 86235; 86255; 86376; 86705; 86706; 86803; 87040; 87070; 87205; 87324; 87340; 87486; 87493; 87581; 87633; 90935; 92523; 92526; 92610; 93005; 93306; 93308; 93454; 93970; 94640; 94660; 96360; 96361; 96372; 97110; 97116; 97162; 97166; 97530; 97535; 99152; 99153; 99291; A4222; C1725; C1750; C1769; C1874; C1887; C1894; C9600; J0169; J0282; J0283; J0690; J1644; J1938; J2250; J2270; J2405; J2543; J2704; J2765; J2919; J2997; J3010; J3475; J3490; J7030; J7070; J7120; J7512; J7613; J7614; J7626; J7644; J9999; P9046; Q3014; Q9967

== ENCOUNTER 2025-07-20 15:45 | Emergency (ER) | payer MEDICARE, OTHER, SELFPAY ==
[2025-07-20 15:54] VITALS: BP 147/103; PULSE 86; RESP 19; TEMP 36.9; O2SAT 99; BMI 48.5
--- NOTE | 2025-07-20 15:56 | XRR_ITS ---
PROCEDURE INFORMATION: Exam: XR Chest Exam date and time: 07/20/2025 4:29 PM Age: 79 years old Clinical indication: Shortness of breath; Additional info: SOB, edema TECHNIQUE: Imaging protocol: Radiologic exam of the chest. Views: 1 view. COMPARISON: CT angio chest PE protcl [id number] 06/17/2025 1:18 PM FINDINGS: Tubes, catheters and devices: Dual lumen right-sided central venous catheter. Life vest device overlying the chest. Lungs: Unremarkable. No consolidation. Pleural spaces: Unremarkable. No pleural effusion. No pneumothorax. Heart/Mediastinum: Unremarkable. No cardiomegaly. Bones/joints: Unremarkable. XR/XR chest 1V portable [id number] IMPRESSION: As above.
--- NOTE | 2025-07-20 16:08 | W.ED.GENADLT ---
HPI - General Adult General: Chief complaint: Skin/Abscess/Foreign Body Stated complaint: Rash on LT foot Time Seen by Provider: 07/20/25 15:46 Source: patient Mode of arrival: EMS Limitations: no limitations History of Present Illness: Patient is a 79-year-old female with an extremely vast and complicated past medical history including significant congestive heart failure, cardiomyopathy with EF as low as 24%, morbid obesity with a BMI of 48.6, renal failure currently on dialysis, hypertension, chronic anemia, aortic stenosis, chronic respiratory failure on oxygen, sleep apnea, chronic back and knee pain, recent c diff infection, recent hospitalization where she sustained an episode of cardiac arrest secondary to ventricular fibrillation requiring CPR and defibrillation x 2, status post recent cardiac catheterization and cardiac stent placement, recent transfer to [facility] for evaluation of an ICD, among several others here initially for a rash to leg/foot . She states she was at dialysis earlier today and could not sit still because her leg rash was too itchy. She states she has been taking oral benadryl to help with the itch and has used topical hydrocortisone cream too. States she had her best night with the rash after an emollient was placed and then socks after. She later begins complaining that her legs are swollen-chronic edema. She chronically feels short of breath and has a lot of anxiety with this and sometimes hyperventilates. She states when she was transferred to [facility] they told her they would not implant an ICD at this time as it was too close following a cardiac cath and stent placement. They wanted to reassess her EF in October and if it is still below 30% they will implant the ICD. She is currently wearing a LifeVest. She does states she completed most of her dialysis today before they had to stop. Patient resides at a intermediate. She does have restless legs and used to be on medication for this (carbidopa levodopa) but was discontinued due to her worsening kidney functions. She does take gabapentin nightly. States her legs not being able to sit still reminds her of that. Onset (ago): day(s) Location: left, right and lower extremity Severity: moderate Pain Consistency: constant Relieving factors: other (hydrocortisone cream helped temporarily) Exacerbating factors: none Associated symptoms: Reports dyspnea (chronic-has not had to increase baseline oxygen); Deny chest pain, headache(s), malaise or palpitations Treatments prior to arrival: other (benadryl) Related Data Home Medications ?Medication ?Instructions ?Recorded ?Confirmed carbidopa ER 50 mg-levodopa 200 mg 1 tab PO TID 09/09/19 06/03/25 tablet,extended release montelukast 10 mg tablet 10 mg PO BEDTIME 09/09/19 06/03/25 (Singulair) gabapentin 300 mg capsule 300 mg PO BEDTIME 11/29/20 06/03/25 cetirizine 10 mg tablet (Zyrtec) 10 mg PO DAILY PRN Allergy Symptoms 05/11/21 06/03/25 sennosides 8.6 mg-docusate sodium 1 tab PO DAILY PRN Constipation 12/05/21 06/03/25 50 mg tablet (Senna Plus) chlorpheniramine maleate 4 mg 4 mg PO BEDTIME PRN Itching 06/12/22 06/03/25 tablet (Aller-Chlor) multivitamin 1 tab PO DAILY 06/12/22 06/03/25 fluticasone propionate 50 2 spray intranasal .hs 07/12/22 06/03/25 mcg/actuation nasal spray,suspension (Flonase Allergy Relief) [id number]-ajw-lfhtgmzuo-vitC 1 cap PO BID 01/17/23 06/03/25 capsule (Glucosamine Complex-MSM capsule) turmeric root extract 500 mg 3,000 mg PO DAILY 11/22/23 06/03/25 capsule cyclobenzaprine 10 mg tablet 10 mg PO BEDTIME 05/23/24 06/03/25 fluticasone 500 mcg-salmeterol 50 1 inh inhalation BID 05/23/24 06/03/25 mcg/dose blistr powdr for inhalation (Advair Diskus) zolpidem 5 mg tablet (Ambien) 2.5 mg PO BEDTIME PRN Insomnia 05/23/24 06/03/25 torsemide 20 mg tablet 10 mg PO DAILY 02/03/25 06/03/25 hydrocodone 5 mg-acetaminophen 325 1 tab PO Q6H PRN Pain 03/03/25 06/03/25 mg tablet albuterol sulfate 90 mcg/actuation 2 puff inhalation QID PRN Wheezing 06/03/25 06/03/25 aerosol inhaler clindamycin phosphate 1 % lotion 1 applic topical DAILY PRN skin 06/03/25 06/03/25 rash estradiol 0.01% (0.1 mg/gram) 1 g vaginal DAILY 06/03/25 06/03/25 vaginal cream hydroxychloroquine 200 mg tablet See Rx Instructions .Route .COMPLEX 06/03/25 06/03/25 (Plaquenil) levothyroxine 150 mcg tablet 150 mcg PO DAILY 06/03/25 06/03/25 (Synthroid) lidocaine 5 % topical patch 1 patch topical DAILY PRN Pain 06/03/25 06/03/25 mometasone 0.1 % topical solution 1 applic topical DAILY PRN skin 06/03/25 06/03/25 rash sacubitril 24 mg-valsartan 26 mg See Rx Instructions .Route .COMPLEX 06/03/25 06/03/25 tablet (Entresto) triamcinolone acetonide 0.1 % 1 applic topical DAILY PRN skin 06/03/25 06/03/25 topical cream rash Previous Rx's ?Medication ?Instructions ?Recorded pantoprazole 40 mg tablet,delayed 40 mg PO BID #90 tabs 07/12/22 release diclofenac sodium 1 % topical gel See Rx Instructions .Route 05/22/24 .COMPLEX #300 grams atorvastatin 40 mg tablet 40 mg PO DAILY #90 tabs 12/30/24 bisoprolol fumarate 5 mg tablet 2.5 mg (1/2 x 5 mg) PO DAILY #45 12/30/24 tabs allopurinol 100 mg tablet 200 mg (2 x 100 mg) PO DAILY #180 06/15/25 tabs diphenhydramine HCl 2 % topical 1 applic topical BID PRN itching 07/20/25 gel (Benadryl) #103 mL hydrocortisone 1 % topical cream 1 applic topical BID PRN itching 07/20/25 #28.4 grams Allergies Allergy/AdvReac Type Severity Reaction Status Date / Time adhesive tape Allergy Intermediate rash, Verified 03/03/25 10:26 itch, DERMABOND 2-octyl cyanoacrylate Allergy ALGY-Bliste Verified 03/03/25 10:26 r DANNY Inhibitors Allergy ADR-Cough Verified 03/03/25 10:26 povidone-iodine (From Allergy ALGY-Bliste Verified 03/03/25 10:26 Betadine) r propranolol (From Inderal LA) Allergy ADR-Depress Verified 03/03/25 10:26 ion soap (From Betadine) Allergy ALGY-Bliste Verified 03/03/25 10:26 r verapamil Allergy ADR-Headach Verified 03/03/25 10:26 e zolpidem (From Ambien) AdvReac ADR-Confusi Verified 06/17/25 11:09 on Review of Systems Const: Denies: fever(s), chills, body aches, fatigue or malaise Card: Reports: edema (chronic) and swelling of feet/ankles (chronic); Denies: chest pain or palpitations Resp: Reports: dyspnea (chronic-has not had to increase baseline oxygen); Denies: productive cough, non-productive cough or pain on inspiration GI: Denies: abdominal pain Musc: Reports: extremity swelling and other (reports her feet are always cold and sometimes turn purple ) Neuro: Denies: headache(s) or dizziness PFSH ED PFSH: Medical History Lumbar stenosis with neurogenic claudication Nondisplaced fracture of neck of fifth metacarpal bone, left hand, initial encounter for closed fracture Sleep apnea treated with continuous positive airway pressure (CPAP) Episcleritis History of iron deficiency anemia Anxiety and depression Peripheral neuropathy Hypothyroidism GERD (gastroesophageal reflux disease) Morbid obesity with BMI of 45.0-49.9, adult Stenosis of cervical spine with myelopathy Cervical disc disorder with myelopathy of mid-cervical region Intervertebral disc disorder with radiculopathy of lumbosacral region Sleep apnea Dyslipidemia Obesity Nonischemic cardiomyopathy Essential hypertension Hyperuricemia CKD (chronic kidney disease) MGUS (monoclonal gammopathy of unknown significance) Degenerative lumbar spinal stenosis Erosive osteoarthritis Gout, arthritis Surgical History Status post surgical removal of malignant neoplasm of skin Basal cell carcinoma History of lumbar laminectomy (05/13/21) Lumbar laminectomy at L4 and L5 with L4/5 interbody fusion and with L5/S1 interbody fusion History of surgical removal of ganglion cyst right wrist History of knee joint replacement Left 06/2018 right 12/2017 Hx of foot surgery Right x2-sub talur fusoin and arthrodesis Hx of hysterectomy Hx of bilateral oophorectomy with Dr. Watts at [facility] [place] in 1982 and left side 2010 right side done when had hysterectomy at [place] Hx of tonsillectomy Status post reverse arthroplasty of right shoulder History of arthroplasty of left shoulder Family History Son Sarcoidosis Mother Cancer Sister Rheumatoid arthritis Grandmother Diabetes Father Cancer Myocardial infarction Social History Smoking and tobacco/nicotine status: never used tobacco/nicotine Second hand smoke exposure: No Alcohol intake: current Alcohol intake frequency: holidays/special occasions only Substance/Drug Use: never Additional social history: 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, 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 she wants full code including brief intubation but not prolong life support as discussed with Skinny Mckeon MD on 06/03/2025 and in the presence of her [id number] Talisha Lynn Household members: spouse Marital status: Current occupational status: retired 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 Physical Exam Const: COMMON NORMALS: patient oriented x3, no limitations and alert GENERAL APPEARANCE: cooperative NUTRITIONAL APPEARANCE: obese morbidly obese (BMI 48.6) HENMT: COMMON NORMALS: normocephalic and atraumatic HEAD & SCALP: normal to inspection, normocephalic and atraumatic Neck/C-Spine: GENERAL: Yes normal visual inspection Chest: COMMONS NORMALS: normal inspection of the chest and normal palpation of entire chest wall Resp: COMMON NORMALS: clear to auscultation bilaterally AUSCULTATION: clear to auscultation bilaterally OTHER: chronic respiratory failure on 4L oxygen-she is satting normally on her 4L Cardio: COMMON NORMALS: regular rate and regular rhythm RATE: regular rate RHYTHM: regular rhythm GI: COMMON NORMALS: Soft to palpation and non-tender PALPATION: Yes Soft to palpation Extremity: NARRATIVE EXTREMITY EXAM: bilateral symmetrical pitting edema; bilateral feet are cool to the touch with dusky appearing toes-states this is normal-possible Raynaud's? I was easily able to find DP/PT pulses bilaterally with doppler mild dermatitis noted to bilateral LEs that she states is itchy-this looks more chronic related to stasis skin changes GENERAL: Yes normal exam except as noted Neuro: COMMON NORMALS: patient oriented x3, moves all extremities, no focal motor deficits and no sensory deficits noted SENSORIUM/ORIENTATION: Yes alert GAIT: Yes Unable to assess gait Skin: NARRATIVE SKIN EXAM: see above Course Vital Signs: Vital signs: Vital Signs Temperature 98.4 F 07/20/25 15:54 Pulse Rate 86 07/20/25 15:54 Respiratory Rate 16 07/20/25 17:10 Blood Pressure 143/95 07/20/25 16:28 Pulse Oximetry 100 07/20/25 16:28 Oxygen Delivery Me thod Nasal Cannula 07/20/25 16:28 Oxygen Flow Rate 4 07/20/25 16:28 MDM - General Adult Medical Decision Making Patient is a 79-year-old female with extensive past medical history here with a main concern of itchy rash to her bilateral lower legs as well as restless legs. She does feel better on re-examination. She said the rash has improved with the topical hydrocortisone cream. She states at home, she did have relief by applying a thick emollient and then wearing socks over this. She can continue to do both of these therapies. I would recommend topical benadryl over oral antihistamines. She can continue her gabapentin as this often times is used for RLS. Patient's vital signs have remained stable. She is satting normally on her normal 4 L of oxygen. She has not required more oxygen. Her chest x-ray does not appear fluid overloaded. Blood work with chronic derangements and overall stable. Her creatinine has actually improved down to 2.0 which is the lowest its been since February. At this time I do not see any reason for hospitalization. Patient feels comfortable going back to her intermediate and following up with PCP. Return to ED precautions discussed. States she needs RX of the topical hydrocortisone/benadryl so intermediate can apply. Medical Records I reviewed the patient's medical records. Lab Data I reviewed the patient's lab results. 07/20/25 17:08 07/20/25 17:08 Radiology Impressions Chest X-Ray 07/20/25 15:56 IMPRESSION: As above. Laboratory Results WBC 14.01 10^3/uL (3.29-11.43) H 07/20/25 17:08 RBC 2.96 10^6/uL (3.85-5.65) L 07/20/25 17:08 Hgb 10.40 g/dL (11.27-16.99) L 07/20/25 17:08 Hct 33.0 % (36-47) L 07/20/25 17:08 MCV 111.5 fl (85-98) H 07/20/25 17:08 MCH 35.1 pg (27-33) H 07/20/25 17:08 MCHC 31.5 g/dL (30-55) 07/20/25 17:08 RDW 22.1 % (12.1-15.1) H 07/20/25 17:08 Plt Count 288 10^3/cmm (157-399) 07/20/25 17:08 MPV 10.8 fL (7.4-10.4) H 07/20/25 17:08 Neut % (Auto) 88.5 % 07/20/25 17:08 Lymph % (Auto) 3.4 % 07/20/25 17:08 [place] % (Auto) 6.8 % 07/20/25 17:08 Eos % (Auto) 0.0 % 07/20/25 17:08 Baso % (Auto) 0.1 % 07/20/25 17:08 Neut # (Auto) 12.41 10^3/uL (1.8-7.7) H 07/20/25 17:08 Lymph # (Auto) 0.5 10^3/uL (0.8-4.8) L 07/20/25 17:08 [place] # (Auto) 1.0 10^3/uL (0.2-0.9) H 07/20/25 17:08 Eos # (Auto) 0.0 10^3/uL (0.0-0.8) 07/20/25 17:08 Baso # (Auto) 0.0 10^3/uL (0.0-0.1) 07/20/25 17:08 Nucleated RBC % (auto) 0.4 % 07/20/25 17:08 Nucleated RBCs # 0.1 /100WBC 07/20/25 17:08 Specimen Type Arterial 07/20/25 16:21 Sample Site Brachial, left 07/20/25 16:21 ABG pH 7.45 (7.35-7.45) 07/20/25 16:21 ABG pCO2 31.8 mmHg (35-45) L 07/20/25 16:21 ABG pO2 113.0 mmHg (80.0-100.0) H 07/20/25 16:21 ABG PO2/FiO2 Ratio 313 07/20/25 16:21 ABG HCO3 22.2 mmol/L (22-26) 07/20/25 16:21 ABG O2 Saturation 99.0 07/20/25 16:21 ABG Base Excess -1.2 mmol/L (-2.0-2.0) 07/20/25 16:21 Juwan Test N/a 07/20/25 16:21 A-a O2 Gradient 13.5 mmHg (5-10) H 07/20/25 16:21 Hematocrit 34.3 % (37-47) L 07/20/25 16:21 Hgb O2 Saturation 97.9 % (95-100) 07/20/25 16:21 Carboxyhemoglobin 0.6 %THgb (0.4-20.1) 07/20/25 16:21 Methemoglobin 0.5 % (0.4-1.5) 07/20/25 16:21 Total Hemoglobin 11.2 g/dL (12-16) L 07/20/25 16:21 Sodium 136.0 mmol/L (131-143) 07/20/25 16:21 Potassium 4.1 mmol/L (3.5-5.0) 07/20/25 16:21 Glucose 157.0 mg/dL (70-115) H 07/20/25 16:21 Ionized Calcium 1.0 mmol/L (1.1-1.4) L 07/20/25 16:21 O2 Delivery Device Nc 07/20/25 16:21 O2 Liters/Min 4.0 % 07/20/25 16:21 FiO2 36.0 % 07/20/25 16:21 Senior Infrastructure Architect ID Amh 07/20/25 16:21 Sodium 141 mmol/L (136-145) 07/20/25 17:08 Potassium 4.4 mmol/L (3.5-5.1) 07/20/25 17:08 Chloride 96 mmol/L (98-107) L 07/20/25 17:08 Carbon Dioxide 22 mmol/L (22-29) 07/20/25 17:08 Anion Gap 27.4 (5-19) H 07/20/25 17:08 BUN 22 mg/dL (8-23) 07/20/25 17:08 Creatinine 2.0 mg/dL (0.5-0.9) H 07/20/25 17:08 GFR Calculation Not Reportable 07/20/25 17:08 Glucose 134 mg/dL (65-115) H 07/20/25 17:08 Calculated Osmolality 297 mOsm/kg (285-295) H 07/20/25 17:08 Calcium 7.9 mg/dL (8.5-10.5) L 07/20/25 17:08 Total Bilirubin 0.4 mg/dL (0.15-1.2) 07/20/25 17:08 AST 39 U/L (0-32) H 07/20/25 17:08 ALT 30 U/L (0-33) 07/20/25 17:08 Alkaline Phosphatase 346 U/L (35-105) H 07/20/25 17:08 Total Protein 6.2 g/dL (6.6-8.7) L 07/20/25 17:08 Albumin 4.0 g/dL (3.5-5.2) 07/20/25 17:08 Globulin 2.2 g/dL (1.3-4.6) 07/20/25 17:08 All radiology interpretation(s) finalized by discharge Discharge Plan Discharge Patient Disposition: Home Clinical Impression: Restless legs syndrome (RLS), Pruritic rash, Nonischemic cardiomyopathy CHF (congestive heart failure) Qualifiers: Heart failure type: other Qualified Code(s): I50.9 - Heart failure, unspecified Condition: Stable Prescriptions: New hydrocortisone 1 % cream 1 applic topical BID PRN (Reason: itching) Qty: 28.4 0RF Benadryl 2 % gel 1 applic topical BID PRN (Reason: itching) Qty: 103 0RF No Action sennosides-docusate sodium [Senna Plus] 8.6-50 mg tablet 1 tab PO DAILY PRN (Reason: Constipation) fluticasone propionate [Flonase Allergy Relief] 50 mcg/actuation spray,suspension 2 spray intranasal .hs Rx Instructions: administer into each nostril multivitamin Tablet 1 tab PO DAILY carbidopa-levodopa 50-200 mg tablet extended release 1 tab PO TID montelukast [Singulair] 10 mg tablet 10 mg PO BEDTIME cyclobenzaprine 10 mg tablet 10 mg PO BEDTIME zolpidem [Ambien] 5 mg tablet 2.5 mg PO BEDTIME PRN (Reason: Insomnia) gabapentin 300 mg capsule 300 mg PO BEDTIME fluticasone propion-salmeterol [Advair Diskus] 500-50 mcg/dose blister with device 1 inh inhalation BID chlorpheniramine maleate [Aller-Chlor] 4 mg tablet 4 mg PO BEDTIME PRN (Reason: Itching) Rx Instructions: do not exceed 2 doses per 24 hrs pantoprazole 40 mg tablet,delayed release (DR/EC) 40 mg PO BID Qty: 90 1RF Glucosamine Complex-MSM Capsule 1 cap PO BID turmeric root extract 500 mg capsule 3,000 mg PO DAILY bisoprolol fumarate 5 mg tablet 2.5 mg PO DAILY Qty: 45 1RF atorvastatin 40 mg tablet 40 mg PO DAILY Qty: 90 3RF hydrocodone-acetaminophen 5-325 mg tablet 1 tab PO Q6H PRN (Reason: Pain) diclofenac sodium 1 % gel See Rx Instructions .ROUTE .COMPLEX Qty: 300 3RF Dose Instruction: APPLY 4 GRAMS TO AFFECTED AREA FOUR TIMES A DAY NEEDED FOR JOINT PAIN Rx Instructions: APPLY 4 GRAMS TO AFFECTED AREA FOUR TIMES A DAY NEEDED FOR JOINT PAIN torsemide 20 mg tablet 10 mg PO DAILY allopurinol 100 mg tablet 200 mg PO DAILY Qty: 180 0RF cetirizine [Zyrtec] 10 mg Tablet 10 mg PO DAILY PRN (Reason: Allergy Symptoms) albuterol sulfate 90 mcg/actuation HFA aerosol inhaler 2 puff INHALATION QID PRN (Reason: Wheezing) triamcinolone acetonide 0.1 % cream 1 applic TOPICAL DAILY PRN (Reason: skin rash) lidocaine 5 % adhesive patch,medicated 1 patch topical DAILY PRN (Reason: Pain) estradiol 0.01 % (0.1 mg/gram) cream 1 g VAGINAL DAILY clindamycin phosphate 1 % lotion 1 applic TOPICAL DAILY PRN (Reason: skin rash) mometasone 0.1 % solution 1 applic TOPICAL DAILY PRN (Reason: skin rash) levothyroxine [Synthroid] 150 mcg tablet 150 mcg PO DAILY hydroxychloroquine [Plaquenil] 200 mg tablet See Rx Instructions .ROUTE .COMPLEX Rx Instructions: TAKE 2 TABLETS EVERY OTHER DAY ALTERNATING WITH 1 TABLET EVERY OTHER DAY. sacubitril-valsartan [Entresto] 24-26 mg tablet See Rx Instructions .ROUTE .COMPLEX Rx Instructions: Take 1 tablet by mouth in the AM and 2 tablets in the PM. Discharge Orders: Discharge ED (Routine); Ordered 07/20/25 Ordered By: Lorenza Ding Referrals: Haider Cancino MD [Primary Care Provider, Family Practice] Patient Instructions: Patient Portal & Gisela Instructions Activity Restrictions/Additional Instructions: We discussed continuing your gabapentin for help with your restless leg syndrome. You may apply topical hydrocortisone cream and/or benadryl to help with leg itchiness. We also discussed emollients-can apply then apply socks which you state have helped. Please follow up with primary care as needed for any further concerns. I hope you begin to feel better soon. Print Language: Italian Coding Level of Care Code ED Chocolate Refining Roller for Dudley Agarwal
[2025-07-20 16:28] VITALS: BP 143/95; O2SAT 100
[2025-07-20 16:33] LABS: ABG PCO2 31.8 mmHg (35-45); ABG PH Result 7.45 (7.35-7.45); Alveolar-Arterial Oxygen Gradi 13.5 mmHg (5-10); Arterial Blood Gas Hematocrit 34.3 % (37-47); Blood Gas LPM 4.0 %; Blood Gas Operator Identificat AMH; Blood Gas Sample Site Brachial, left; Blood Gas Sample Type Arterial; Carboxyhemoglobin 0.6 %THgb (0.4-20.1); Glucose Level-ABG 157.0 mg/dL (70-115); HCO3 ABG 22.2 mmol/L (22-26); Ionized Calcium Level - ABG 1.0 mmol/L (1.1-1.4); Methemoglobin 0.5 % (0.4-1.5); Oxygen Saturation ABG 99.0; PO2 ABG 113.0 mmHg (80.0-100.0); PO2 FiO2 Ratio Arterial Blood 313; Potassium Level - ABG 4.1 mmol/L (3.5-5.0); Sodium Level - ABG 136.0 mmol/L (131-143)
[2025-07-20 17:10] VITALS: RESP 16
[2025-07-20] MEDS: morphine 4 mg/mL SDV 1 mL IM (17:10)
[2025-07-20] MEDS: ondansetron 2 mg/ML SDV 2 mL 4 MG IM (17:11)
[2025-07-20 17:15] LABS: Hematocrit 33.0 % (36-47); Hemoglobin 10.40 g/dL (11.27-16.99); Mean Corpuscular HGB Conc 31.5 g/dL (30-55); Mean Corpuscular Hemoglobin 35.1 pg (27-33); Mean Corpuscular Volume 111.5 fl (85-98); Nucleated Red Blood Cells % 0.4 %; Platelet Count 288 10^3/cmm (157-399); Red Blood Count 2.96 10^6/uL (3.85-5.65); White Blood Count 14.01 10^3/uL (3.29-11.43)
[2025-07-20 17:47] LABS: Alanine Aminotransferase 30 U/L (0-33); Albumin Level 4.0 g/dL (3.5-5.2); Alkaline Phosphatase 346 U/L (35-105); Anion Gap 27.4 (5-19); Aspartate Amino Transferase 39 U/L (0-32); Blood Urea Nitrogen 22 mg/dL (8-23); Calcium 7.9 mg/dL (8.5-10.5); Carbon Dioxide 22 mmol/L (22-29); Chloride 96 mmol/L (98-107); Globulin 2.2 g/dL (1.3-4.6); Glucose 134 mg/dL (65-115); Osmolality Calculated 297 mOsm/kg (285-295); Potassium 4.4 mmol/L (3.5-5.1); Sodium 141 mmol/L (136-145); Total Protein 6.2 g/dL (6.6-8.7)
[2025-07-20 18:12] VITALS: PULSE 97; O2SAT 98
[2025-07-20 19:07] VITALS: PULSE 74; O2SAT 97
--- OUTSIDE RECORDS SUMMARY | 2025-07-20 19:13 | XMS_ITS | Encounter Summary ---
Author Organization [facility] Address [address] [place] [address] Care Team Providers Care Freight Sales Broker Name Role Phone Tip Manning DO Primary Care Provider [phone] Encounter Details Date Type Department Care Team (Latest Contact Info) Description 06/26/2005 Outpatient Historical [facility] Rheumatology- [facility] [place] [address] [place] [id number] Rachel Desai MD [address] [place], [place] [id number] GENERAL OSTEOARTHROSIS (Primary Dx) Social History Tobacco Use Types Packs/Day Years Used Date Smoking Tobacco: Never Assessed Comments Unknown Sex and Gender Information Value Date Recorded Sex Assigned at Not on file Legal Sex 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
--- OUTSIDE RECORDS SUMMARY | 2025-07-20 19:13 | XMS_ITS | Encounter Summary ---
Author Organization [facility] Address [address] [place] [address] Care Team Providers Care Yarrow Gatherer Name Role Phone Tip Manning DO Primary Care Provider Encounter Details Date Type Department Care Team (Latest Contact Info) Description 04/25/2006 Outpatient Historical [facility] Rheumatology- [facility] [place] [address] [place] [phone] Rachel Desai MD [address] [place], [place] [phone] Generalized Osteoarthrosis, Involving Multiple Sites (Primary Dx); Encounter for Long-Term (Current) Use of Other Medications Social History Tobacco Use Types Packs/Day Years Used Date Smoking Tobacco: Never Assessed Comments Unknown Sex and Gender Information Value Date Recorded Sex Assigned at Not on file 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
--- OUTSIDE RECORDS SUMMARY | 2025-07-20 19:13 | XMS_ITS | Clinical Summary ---
Author Organization [facility] Address [address] Attn: [place] [address] Care Team Providers Care Banquet Attendant Name Role Phone Tip Manning Primary Care Provider [phone] Allergies Active Allergy Reactions Criticality Noted Date Comments Adhesive Tape-Silicones Rash Low 06/18/2025 Propranolol Dizziness Low 06/18/2025 Verapamil Headache Low 06/18/2025 Medications amiodarone (CORDARONE) 200 mg tablet Take 1 Tablet (200 mg) by mouth daily. 5 Active aspirin (ECOTRIN EC) 81 mg Tablet, Delayed Release (E.C.) Take 1 Tablet (81 mg) by mouth daily. 5 Active atorvastatin (LIPITOR) 40 mg tablet Take 1 Tablet (40 mg) by mouth daily at bedtime. 5 Active clopidogreL (PLAVIX) 75 mg Tablet Take 1 Tablet (75 mg) by mouth daily. 5 Active gabapentin (NEURONTIN) 300 mg capsule Take 1 Capsule (300 mg) by mouth daily at bedtime. 5 Active levothyroxine 50 mcg tablet Take 1 Tablet (50 mcg) by mouth daily in the morning. 5 Active nitroglycerin (NITROSTAT) 0.6 mg Tablet, SublingualIndi cations:for esophageal spasm Place 1 Tablet (0.6 mg) under tongue every 4 hours as needed for Chest Pain. 5 Active pantoprazole (PROTONIX) 40 mg Tablet, Delayed Release (E.C.) Take 1 Tablet (40 mg) by mouth daily before breakfast. Active sennosides-doc usate sodium (SENNA-S) 8.6-50 mg tablet Take 1 Tablet by mouth 2 times daily as needed for Constipatio n. Active traZODone (DESYREL) 50 mg tablet Take 1 Tablet (50 mg) by mouth daily at bedtime. Active amiodarone (CORDARONE) 200 mg tablet Take 1 Tablet (200 mg) by mouth daily. 60 Tablet 07/07/20 Discontinued Active Problems Problem Noted Date Diagnosed Date Angiodysplasia of colon 06/30/2025 Acute lower GI bleeding 06/26/2025 Diverticulosis 06/25/2025 Diverticular hemorrhage 06/25/2025 ASHD (arteriosclerotic heart disease) 06/25/2025 Rectal bleeding 06/23/2025 Anemia 06/23/2025 Hx of cardiac arrest 06/23/2025 Hematochezia 06/23/2025 Acute blood loss anemia 06/23/2025 Mitral valve insufficiency 06/22/2025 Ventricular tachycardia 06/18/2025 Acute on chronic heart failu re with reduced ejection fraction (HFrEF, <= 40%) 06/18/2025 Acute kidney injury superimposed on chronic kidn ey disease 06/18/2025 Morbid obesity with body mass index of 40.0-49.9 06/18/2025 Clostridioides difficile infection 06/18/2025 VF (ventricular fibrillation) 06/18/2025 Encounters Date Type Department Care Team Description 06/29/2025 8:48 AM [facility] Anesthesia Event [facility] Endoscopy [address] [place] [address] Magdiel Hay MD 06/29/2025 8:40 AM BUDGET CLERK - 06/29/2025 9:00 AM [facility] Surgery [facility] Endoscopy [address] [place] [phone] Александр Gregorio MD COLONOSCOPY 06/27/2025 8:20 AM [facility] Anesthesia Event [facility] Operating Room [address] [place] [phone] Jose Eduardo Mcnamara MD 06/27/2025 7:48 AM BUDGET CLERK - 06/27/2025 8:16 AM BUDGET CLERK Surgery [facility] Operating Room [address] [place] [phone] Александр Grgeorio MD COLONOSCOPY 06/24/2025 Orders Only [facility] Health Information Management [place] [address] [place] [address] Provider, Abstract 06/24/2025 Abstract [facility] [address] [place] [phone] Provider, Abstract 06/23/2025 External Device Data [facility] Provider, Abstract 06/23/2025 External Device Data [facility] Provider, Abstract 06/23/2025 External Device Data [facility] Provider, Abstract 06/22/2025 Orders Only [facility] [address] [place] [phone] Eileen Cunningham RN Mitral valve insufficiency, unspecified etiology (Primary Dx); VF (ventricular fibrillation) (CMS/HCC); Ventricular tachycardia (CMS/HCC) 06/18/2025 9:00 PM BUDGET CLERK - 07/08/2025 2:47 PM BUDGET CLERK Hospital Encounter [facility] 7H Burn Unit [address] [place] [phone] Eduardo Lo MD Lohia, MD Anant Castaneda Mariam, MD Sigdel, Supriya, MD Kaur, MD Neel Abdul Abhaya, MD Dhakal, Prabin, MD VF (ventricular fibrillation) (CMS/HCC) Discharge Disposition: Care Home Fac(SNF) with Medicare Certification in Anticipation of Skilled Care 06/18/2025 Travel from Last 3 Months Social History Tobacco Use Types Packs/Day Years Used Date Smoking Tobacco: Unknown Tobacco Cessation:Counseling Given: Not Answered Food Insecurity Answer Date Recorded Do you find you are eating l ess than you should because you can t pay for food? No 06/26/2025 Transportation Needs Answer Date Record ed Have you gone without health care because you didn t have a way to get there? Or worry about transportation for future doctor visits, coal picker medication, etc.? No 2024 Housing Stability Answer Date Recorded Do you worry you won t have a steady place to sleep or struggle to pay rent or mortgage? No 06/26/2025 Utility Needs Answer Date Recorded Do you have difficulty payin g for utility costs (electric, water or gas bills)? No 06/26/2025 Medication Needs Answer Date Recorded Have you skipped taking medi cation due to cost or worry you can t afford new medications? No 06/26/2025 Feeling Safe Answer Date Recorded Are you in a relationship wi th someone who hurts you emotionally and/or physically? No 06/18/2025 Food Insecurity Answer Date Recorded Patient needs follow up regardin 06/18/2025 Transportation Needs Answer Date Record ed Patient needs follow up regardin 06/18/2025 Utility Needs Answer Date Recorded Patient needs follow up regardin 06/18/2025 Comments No Sex and Gender Information Value Date Recorded Sex Assigned at Not on file Legal Sex Female 9:09 AM BUDGET CLERK Gender Identity Not on file Sexual Orientation Not on file Last Filed Vital Signs Vital Sign Reading Time Taken Comments Blood Pressure 111/65 07/08/2025 10:00 AM BUDGET CLERK Pulse 67 07/07/2025 2:49 PM BUDGET CLERK Temperature 36.3 C (97.4 F) 07/08/2025 10:00 AM BUDGET CLERK Respiratory Rate 16 07/08/2025 10:0 0 AM BUDGET CLERK Oxygen Saturation 93% 07/08/2025 10: 00 AM BUDGET CLERK Inhaled Oxygen Concentration - - Weight 103.9 kg (229 lb 0.9 oz) 025 11:17 AM BUDGET CLERK Height 154.9 cm (5' 1 ) 06/18/2025 10:1 5 PM BUDGET CLERK Body Mass Index 43.28 06/18/2025 10:15 PM BUDGET CLERK Plan of Treatment Upcoming Encounters Date Type Department Care Team (Late st Contact Info) Description 10/15/2025 9:45 AM CDT Office Visit [facility] [address] [place] [address] Delvin Ennis MD [address] [facility] [address] [place] [phone] Health Maintenance Due Date Last Done Comments DTAP/TDAP/TD VACCINES (1 - Tdap) 1966 OSTEOPOROSIS SCREENING 2012 ZOSTER VACCINE (2 of 2) 07/22/2020 05/27/2020 RSV VACCINE (60+ or ) (1 - 1-dose 75+ series) 2022 INFLUENZA VACCINE (#1) 2025 , 05/16/2023, 07/20/2022, Additional history exists COVID-19 Vaccine (4 - 2024-2 6 season) 2025 06/10/2021, 09/01/2020, 08/02/2020 PNEUMOCOCCAL VACCINE 50+ YEARS Completed 1 , 06/12/2018, 05/07/2015 COLORECTAL SCREENING Discontinued 06/29/2025, 06/29/2025, 06/27/2025, Additional history exists Colorectal Cancer Screening Discontinued FIT-DNA Q 3 years Discontinued FIT/FOBT Q 1 year Discontinued Flex Sig/CT Colonography Q 5 years Discontinued Medical Devices Implanted Type Area Time Study Engineer Device Identifier Shelf Expiration Date Model / Serial / Lot Kit Cath 14fr Vena Trac 19cm Palindrome [id number] - [id number] Implanted:Qty: 1 on 06/22/2025 by Vasu Barfield MD at [facility] Catheter Right: Chest Wall [facility] [id number] 01/03/2030 [id number] / / [id number] Procedures Procedure Name Priority Date/Time Associated Diagnosis Comments TELEMETRY REPORT 07/10/2025 2:11 PM BUDGET CLERK HEMODIALYSIS Routine 07/07/2025 3:22 PM BUDGET CLERK DIFFERENTIAL, MANUAL Routine 07/07/2025 6:12 AM BUDGET CLERK RENAL FUNCTION PANEL Routine 07/07/2025 6:12 AM BUDGET CLERK CBC WITH DIFFERENTIAL Routine 07/07/2025 6:12 AM BUDGET CLERK DIFFERENTIAL, MANUAL Routine 07/06/2025 12:42 AM BUDGET CLERK RENAL FUNCTION PANEL Routine 07/06/2025 12:42 AM BUDGET CLERK CBC WITH DIFFERENTIAL Routine 07/06/2025 12:42 AM BUDGET CLERK RENAL FUNCTION PANEL Routine 07/05/2025 5:23 AM BUDGET CLERK DIFFERENTIAL, MANUAL Routine 07/05/2025 5:20 AM BUDGET CLERK CBC WITH DIFFERENTIAL Routine 07/05/2025 5:20 AM BUDGET CLERK ACUTE HEPATITIS PANEL Routine 07/04/2025 10:32 AM BUDGET CLERK DIFFERENTIAL, MANUAL Routine 07/04/2025 4:58 AM BUDGET CLERK RENAL FUNCTION PANEL Routine 07/04/2025 4:58 AM BUDGET CLERK CBC WITH DIFFERENTIAL Routine 07/04/2025 4:58 AM BUDGET CLERK RENAL FUNCTION PANEL Stat 07/03/2025 9:35 AM BUDGET CLERK DIFFERENTIAL, MANUAL Routine 07/03/2025 5:43 AM BUDGET CLERK CBC WITH DIFFERENTIAL Routine 07/03/2025 5:43 AM BUDGET CLERK CBC WITHOUT DIFFERENTIAL Routine 07/02/2025 7:59 AM BUDGET CLERK RENAL FUNCTION PANEL Routine 07/02/2025 7:59 AM BUDGET CLERK DIFFERENTIAL, MANUAL Stat 07/01/2025 10:13 AM BUDGET CLERK RENAL FUNCTION PANEL Stat 07/01/2025 10:13 AM BUDGET CLERK CBC WITH DIFFERENTIAL Stat 07/01/2025 10:13 AM BUDGET CLERK HEMODIALYSIS Routine 06/30/2025 8:45 AM BUDGET CLERK BASIC METABOLIC PANEL Routine 06/30/2025 5:18 AM BUDGET CLERK CBC WITHOUT DIFFERENTIAL Routine 06/30/2025 5:18 AM BUDGET CLERK US DOPPLER VENOUS ARM BILATERAL Routine 06/29/2025 11:41 AM BUDGET CLERK COLONOSCOPY REPORT 06/29/2025 9: 31 AM BUDGET CLERK COLONOSCOPY 06/29/2025 8:40 AM BUDGET CLERK CBC WITHOUT DIFFERENTIAL Routine 06/29/2025 5:49 AM BUDGET CLERK EKG 12-LEAD Routine 06/28/2025 5:53 PM BUDGET CLERK BASIC METABOLIC PANEL Routine 06/28/2025 7:10 AM BUDGET CLERK CBC WITHOUT DIFFERENTIAL Routine 06/28/2025 7:10 AM BUDGET CLERK HEMOGLOBIN AND HEMATOCRIT Routine 06/27/2025 11:37 PM BUDGET CLERK HEMOGLOBIN AND HEMATOCRIT Routine 06/27/2025 4:30 PM BUDGET CLERK HEMOGLOBIN AND HEMATOCRIT Routine 06/27/2025 11:09 AM BUDGET CLERK HEMODIALYSIS Routine 06/27/2025 11:08 AM BUDGET CLERK COLONOSCOPY REPORT 06/27/2025 8: 49 AM BUDGET CLERK MS COLONOSCOPY FLX DX W/COLLJ SPEC WHEN PFRMD 06/27/2025 7:48 AM BUDGET CLERK BASIC METABOLIC PANEL Routine 06/27/2025 12:37 AM BUDGET CLERK CBC WITHOUT DIFFERENTIAL Routine 06/27/2025 12:37 AM BUDGET CLERK HEMOGLOBIN AND HEMATOCRIT Routine 06/26/2025 4:33 PM BUDGET CLERK EKG 12-LEAD Routine 06/26/2025 12:22 PM BUDGET CLERK POC GLUCOSE Routine 06/26/2025 7:12 AM BUDGET CLERK RENAL FUNCTION PANEL Routine 06/26/2025 7:11 AM BUDGET CLERK CBC WITHOUT DIFFERENTIAL Routine 06/26/2025 7:11 AM BUDGET CLERK POC GLUCOSE Routine 06/26/2025 5:37 AM BUDGET CLERK POC GLUCOSE Routine 06/25/2025 11:14 PM BUDGET CLERK POC GLUCOSE Routine 06/25/2025 9:16 PM BUDGET CLERK HEMOGLOBIN AND HEMATOCRIT Routine 06/25/2025 9:13 PM BUDGET CLERK POC GLUCOSE Routine 06/25/2025 5:30 PM BUDGET CLERK HEMODIALYSIS Routine 06/25/2025 12:08 PM BUDGET CLERK POC GLUCOSE Routine 06/25/2025 11:36 AM BUDGET CLERK POC GLUCOSE Routine 06/25/2025 7:11 AM BUDGET CLERK DIFFERENTIAL, MANUAL Routine 06/25/2025 5:15 AM BUDGET CLERK RENAL FUNCTION PANEL Routine 06/25/2025 5:15 AM BUDGET CLERK CBC WITH DIFFERENTIAL Routine 06/25/2025 5:15 AM BUDGET CLERK POC GLUCOSE Routine 06/25/2025 4:01 AM BUDGET CLERK POC GLUCOSE Routine 06/24/2025 11:57 PM BUDGET CLERK HEMOGLOBIN AND HEMATOCRIT Routine 06/24/2025 11:57 PM BUDGET CLERK HEMOGLOBIN AND HEMATOCRIT Routine 06/24/2025 8:21 PM BUDGET CLERK POC GLUCOSE Routine 06/24/2025 8:07 PM BUDGET CLERK POC GLUCOSE Routine 06/24/2025 4:46 PM BUDGET CLERK POC GLUCOSE Routine 06/24/2025 12:00 PM BUDGET CLERK HEMOGLOBIN AND HEMATOCRIT Routine 06/24/2025 12:00 PM BUDGET CLERK CTA ABD PELVIS W AND/OR WO CONTRAST Stat 06/24/2025 11:38 AM BUDGET CLERK POC GLUCOSE Routine 06/24/2025 7:15 AM BUDGET CLERK DIFFERENTIAL, MANUAL Routine 06/24/2025 12:56 AM BUDGET CLERK RENAL FUNCTION PANEL Routine 06/24/2025 12:56 AM BUDGET CLERK CBC WITH DIFFERENTIAL Routine 06/24/2025 12:56 AM BUDGET CLERK POC GLUCOSE Routine 06/23/2025 7:51 PM BUDGET CLERK TRANSFUSE PACKED RED BLOOD CELLS Routine 06/23/2025 7:40 PM BUDGET CLERK PREPARE RED BLOOD CELLS Routine 06/23/2025 6:14 PM BUDGET CLERK PREPARE RED BLOOD CELLS Routine 06/23/2025 6:14 PM BUDGET CLERK POC GLUCOSE Routine 06/23/2025 5:18 PM BUDGET CLERK TRANSFUSE PACKED RED BLOOD CELLS Routine 06/23/2025 4:16 PM BUDGET CLERK POC GLUCOSE Routine 06/23/2025 12:11 PM BUDGET CLERK PREPARE RED BLOOD CELLS Routine 06/23/2025 7:43 AM BUDGET CLERK CBC WITH DIFFERENTIAL Stat 06/23/2025 7:24 AM BUDGET CLERK LACTIC ACID Stat 06/23/2025 7:24 AM BUDGET CLERK RENAL FUNCTION PANEL Routine 06/23/2025 7:24 AM BUDGET CLERK POC GLUCOSE Routine 06/23/2025 12:55 AM BUDGET CLERK TYPE AND SCREEN Routine 06/22/2025 11:25 PM BUDGET CLERK HEMOGLOBIN AND HEMATOCRIT Stat 06/22/2025 10:12 PM BUDGET CLERK POC GLUCOSE Routine 06/22/2025 4:56 PM BUDGET CLERK IR VENOUS ACCESS Routine 06/22/2025 4:14 PM BUDGET CLERK POC GLUCOSE Routine 06/22/2025 12:20 PM BUDGET CLERK POC GLUCOSE Routine 06/22/2025 11:50 AM BUDGET CLERK POC GLUCOSE Routine 06/22/2025 11:13 AM BUDGET CLERK POC GLUCOSE Routine 06/22/2025 7:58 AM BUDGET CLERK POC GLUCOSE Routine 06/22/2025 7:44 AM BUDGET CLERK POC GLUCOSE Routine 06/22/2025 7:22 AM BUDGET CLERK POC GLUCOSE Routine 06/22/2025 4:43 AM BUDGET CLERK RENAL FUNCTION PANEL Routine 06/22/2025 4:39 AM BUDGET CLERK CBC WITH DIFFERENTIAL Routine 06/22/2025 4:39 AM BUDGET CLERK PROTIME-INR Routine 06/22/2025 4:39 AM BUDGET CLERK RENAL FUNCTION PANEL Routine 06/21/2025 11:35 PM BUDGET CLERK CBC WITH DIFFERENTIAL Routine 06/21/2025 11:35 PM BUDGET CLERK POC GLUCOSE Routine 06/21/2025 8:09 PM BUDGET CLERK POC GLUCOSE Routine 06/21/2025 4:48 PM BUDGET CLERK ECHO COMPLETE Routine 06/21/2025 3:01 PM BUDGET CLERK POC GLUCOSE Routine 06/21/2025 11:31 AM BUDGET CLERK EKG 12-LEAD Routine 06/21/2025 10:56 AM BUDGET CLERK POC GLUCOSE Routine 06/21/2025 7:33 AM BUDGET CLERK RENAL FUNCTION PANEL Routine 06/21/2025 5:28 AM BUDGET CLERK CBC WITH DIFFERENTIAL Routine 06/21/2025 5:28 AM BUDGET CLERK POC GLUCOSE Routine 06/21/2025 5:26 AM BUDGET CLERK POC GLUCOSE Routine 06/20/2025 11:05 PM BUDGET CLERK POC GLUCOSE Routine 06/20/2025 7:38 PM BUDGET CLERK POC GLUCOSE Routine 06/20/2025 7:32 AM BUDGET CLERK POC GLUCOSE Routine 06/20/2025 3:15 AM BUDGET CLERK CBC WITHOUT DIFFERENTIAL Routine 06/20/2025 3:14 AM BUDGET CLERK BASIC METABOLIC PANEL Routine 06/20/2025 3:14 AM BUDGET CLERK POC GLUCOSE Routine 06/20/2025 12:37 AM BUDGET CLERK POC GLUCOSE Routine 06/19/2025 8:27 PM BUDGET CLERK POC GLUCOSE Routine 06/19/2025 12:47 PM BUDGET CLERK CANDLE CUTTER EVALUATE AND TREAT Routine 12:07 PM BUDGET CLERK POC GLUCOSE Routine 06/19/2025 9:16 AM BUDGET CLERK POC GLUCOSE Routine 06/19/2025 4:11 AM BUDGET CLERK IRON, TIBC, AND PERCENT SATURATION Routine 06/19/2025 4:10 AM BUDGET CLERK FERRITIN Routine 06/19/2025 4:10 AM BUDGET CLERK CBC WITHOUT DIFFERENTIAL Routine 06/19/2025 4:10 AM BUDGET CLERK BASIC METABOLIC PANEL Routine 06/19/2025 4:10 AM BUDGET CLERK CBC WITHOUT DIFFERENTIAL Routine 06/19/2025 12:45 AM BUDGET CLERK COMPREHENSIVE METABOLIC PANEL Routine 06/19/2025 12:45 AM BUDGET CLERK POC GLUCOSE Routine 06/18/2025 11:34 PM BUDGET CLERK EKG 12-LEAD Routine 06/18/2025 10:13 PM BUDGET CLERK XR CHEST PA OR AP 1 VW Routine 9:48 PM BUDGET CLERK COMPREHENSIVE METABOLIC PANEL Routine 06/18/2025 11:13 AM BUDGET CLERK COMPREHENSIVE METABOLIC PANEL Routine 06/17/2025 11:11 AM BUDGET CLERK COMPREHENSIVE METABOLIC PANEL Routine 06/16/2025 11:12 AM BUDGET CLERK HEMOGLOBIN A1C Routine 06/08/2025 from Last 3 Months Results * TELEMETRY REPORT (07/10/2025 2:11 PM BUDGET CLERK) us Provider Scanning ECG ORDERABLES Final Result * HEMODIALYSIS (07/07/2025 3:22 PM BUDGET CLERK) Narrative [facility] - 07/07/2025 3:22 PM BUDGET CLERK Yvan Loza MD 07/07/2025 8:18 PM PROCEDURE: Intermittent Hemodialysis INDICATION: acute kidney injury Procedure: Utilizing the patient's vascular access, the patient was initiated on hemodialysis. Dialysis is planned for 4 hours. Blood flow of 400 ml per minute and Dialysate flow of 800 ml per minute were prescribed. The bath used was 3 mEq/L potassium, 3 mEq/L calcium, 140 mEq/L sodium and 35 mEq/L bicarbonate. UF goal: 2 L, BP stable. Revaclear 400 hollow fiber dialyzer was used. No heparin was used for anticoagulation. No complications have been encountered to this point. I was present during dialysis, and was available for the entirety of the dialysis treatment. Medications Reviewed in [facility] Physical Exam: BP 110/68 Pulse 67 Temp 97.2 F (36.2 C) Resp 16 Ht 5' 1 (1.549 m) Wt 103.9 kg (229 lb 0.9 oz) SpO2 96% BMI 43.28 kg/m VSS. NAD, normal respiratory rate, 2+ edema Labs: Reviewed in [facility] Lab Results Component Value Date/Time NA 131 (L) 07/07/2025 06:12 AM K 5.4 (H) 07/07/2025 06:12 AM CL 96 (L) 07/07/2025 06:12 AM CO2 23 07/07/2025 06:12 AM CA 9.5 07/07/2025 06:12 AM BUN 35 (H) 07/07/2025 06:12 AM CREAT 3.44 (H) 07/07/2025 06:12 AM GLUCOSE 102 (H) 07/07/2025 06:12 AM ANIONGAP 12 07/07/2025 06:12 AM Lab Results Component Value Date/Time WBC 8.8 07/07/2025 06:12 AM HGB 9.2 (L) 07/07/2025 06:12 AM HCT 29.2 (L) 07/07/2025 06:12 AM PLT 303 07/07/2025 06:12 AM MCV 107.4 (H) 07/07/2025 06:12 AM Lab Results Component Value Date/Time CA 9.5 07/07/2025 06:12 AM PO4 4.0 07/07/2025 06:12 AM Lab Results Component Value Date/Time TOTALPROTEIN 6.0 (L) 06/19/2025 12:45 AM ALBUMIN 3.8 07/07/2025 06:12 AM Assessment and Plan: Acute kidney injury on CKD4 Secondary to ATN and potentially cardiorenal syndrome Baseline Cr 1.6-2.0 - high risk for ESRD Remains oliguric with no renal recovery Started hemodialysis at [facility] S/p TDC exchange due to cuff exposure 06/22 Continue dialysis with HD today Continue TTS schedule SW assisting with OP hemodialysis in [place] -patient is not safe for discharge until outpatient chair time has been confirmed for dialysis Check labs predialysis to monitor for renal recovery (Cr. Went up today to 3.44) Anemia with hb declined s/p GIB with blood in stools. S/p colonoscopy and found to have telangiectasia in the colon which was cauterized otherwise negative for bleeding. Hgb 9.4. Iron stores are low on 06/19/25. Continue IV iron and CAM protocol # compliant with frequency and duration of dialysis: yes Margarita Han NP [facility] 07/07/25, 3:22 PM us Uma Bourne MD DIALYSIS ORDERABLES Fin al Result [facility] [employer] [facility] CLIA # [id number] [address] [place] [id number] * MANUAL DIFFERENTIAL (07/07/2025 6:12 AM BUDGET CLERK) Only the most recent of8 resultswithin the time period is included. PLATELET EST. Adequate 07/07/2025 6:56 AM [facility] ANISOCYTOSIS 4+ /hpf 07/07/2025 6:56 AM [facility] [employer] [facility] POIKILOCYTES 2+ /hpf 07/07/2025 6:56 AM [facility] MACROCYTES 1+ /hpf 07/07/2025 6:56 AM [facility] OVALOCYTES 1+ /hpf 07/07/2025 6:56 AM [facility] ROCIO CELLS 1+ /hpf 07/07/2025 6:56 AM [facility] JC-JOLLY BODIES Present /hpf 07/07/2025 6:56 AM [facility] [employer] [facility] Blood Venipuncture / Unknown 07/07/2025 6:12 AM BUDGET CLERK 07/07/2025 6:20 AM BUDGET CLERK us Mamadou Shaikh MD HEMATOLOGY ORDERABLES COM Fi nal Result [facility] CLLIZZY # [id number] [address] [address] [place] [address] * (ABNORMAL) CBC WITH DIFFERENTIAL (07/07/2025 6:12 AM BUDGET CLERK) Only the most recent of12 resultswithin the time period is included. Pathologist [facility] WBC 8.8 4.8 - 10.8 K/uL 07/07/2025 6:56 AM [facility] RBC 2.72(L) 4.20 - 5.40 M/uL 07/07/2025 6:56 AM [facility] HEMOGLOBIN 9.2(L) 12.0 - 16.0 g/dL 07/07/2025 6:56 AM [facility] HEMATOCRIT 29.2(L) 36.0 - 46.0 % 07/07/2025 6:56 AM [facility] MCV 107.4(H) 84.0 - 103.0 fL 07/07/2025 6:56 AM [facility] MCH 33.8 27.0 - 34.0 pg 07/07/2025 6:56 AM [facility] MCHC 31.5 30.0 - 35.0 g/dL 07/07/2025 6:56 AM [facility] PLATELETS 303 140 - 440 K/uL 07/07/2025 6:56 AM [facility] MPV 11.7 8.9 - 12.8 fL 07/07/2025 6:56 AM [facility] RDW 21.4(H) 11.0 - 14.5 % 07/07/2025 6:56 AM [facility] RDW-STDEV 82.5(H) 37.0 - 54.0 fL 07/07/2025 6:56 AM [facility] NEUTROPHILS 76(H) 42 - 75 % 07/07/2025 6:56 AM [facility] LYMPHOCYTES 10(L) 24 - 44 % 07/07/2025 6:56 AM [facility] MONOCYTES 11(H) 2 - 10 % 07/07/2025 6:56 AM [facility] EOSINOPHILS 2 0 - 7 % 07/07/2025 6:56 AM [facility] BASOPHILS 1 0 - 1 % 07/07/2025 6:56 AM [facility] IMMATURE GRANULOCYTES 1 0 - 2 % 07/07/2025 6:56 AM [facility] NEUTROPHIL ABSOLUTE 6.75 2.00 - 8.00 K/uL 07/07/2025 6:56 AM [facility] LYMPHOCYTE ABSOLUTE 0.89(L) 1.20 - 4.00 K/uL 07/07/2025 6:56 AM [facility] MONOCYTE ABSOLUTE 0.94(H) 0.10 - 0.60 K/uL 07/07/2025 6:56 AM [facility] EOSINOPHIL ABSOLUTE 0.17 0.00 - 0.70 K/uL 07/07/2025 6:56 AM [facility] BASOPHILS ABSOLUTE 0.04 0.00 - 0.20 K/uL 07/07/2025 6:56 AM [facility] IMMATURE GRANULOCYTES ABSOLUTE 0.05 0.00 - 0.10 K/uL 07/07/2025 6:56 AM [facility] SMEAR REVIEWED: SR - See Smear Review on Manual Diff. 07/07/2025 6:56 AM [facility] Blood Venipuncture / Unknown 07/07/2025 6:12 AM BUDGET CLERK 07/07/2025 6:20 AM [facility] us Mamadou Shaikh MD HEMATOLOGY ORDERABLES Final Result [facility] CLIA # [id number] [address] [place] [address] * (ABNORMAL) RENAL FUNCTION PANEL (07/07/2025 6:12 AM [facility]) Only the most recent of14 resultswithin the time period is included. SODIUM 131(L) 136 - 145 mmol/L 07/07/2025 6:53 AM [facility] POTASSIUM 5.4(H) 3.5 - 5.1 mmol/L 07/07/2025 6:53 AM [facility] CHLORIDE 96(L) 98 - 107 mmol/L 07/07/2025 6:53 AM [facility] CO2 23 22 - 29 mmol/L 07/07/2025 6:53 AM [facility] CALCIUM 9.5 8.8 - 10.2 mg/dL 07/07/2025 6:53 AM [facility] BUN 35(H) 8 - 23 mg/dL 07/07/2025 6:53 AM [facility] CREATININE 3.44(H) 0.51 - 0.95 mg/dL 07/07/2025 6:53 AM [facility] Comment:The GFR result is no t clinically significant on patients <18 or >70 years of age. GLUCOSE 102(H) 74 - 99 mg/dL 07/07/2025 6:53 AM [facility] ALBUMIN 3.8 3.5 - 5.2 g/dL 07/07/2025 6:53 AM [facility] PHOSPHORUS 4.0 2.5 - 4.5 mg/dL 07/07/2025 6:53 AM [facility] GFR 13 mL/min/1. 73 sq meter 07/07/2025 6:53 AM [facility] Comment:eGFR calculated with 2020 CKD-EPI equation. Vegetarian diet, extremely high or low muscle mass, and may affect results. Cystatin C with Glomerular Filtration Rate is a suitable alternative for these patients. ANION GAP 12 9 - 20 mmol/L 07/07/2025 6:53 AM [facility] Blood Venipuncture / Unknown 07/07/2025 6:12 AM [facility] 07/07/2025 6:21 AM [facility] us Mamadou Shaikh MD CHEMISTRY ORDERABLES Final R esult Performing Organization Address [facility]/[place] [facility] de Phone Number [facility] CLIA # [id number] [address] [place] [address] * ACUTE HEPATITIS PANEL (07/04/2025 10:32 AM BUDGET CLERK) HEPATITIS B SURFACE AG NON-REACT NU Non-react nu 07/04/2025 11:35 AM [facility] Comment:A non-reactive test result does not exclude the possibility of exposure to or infection with hepatitis B. HEPATITIS B CORE IGM NON-REACT NU Non-react nu 07/04/2025 11:35 AM [facility] Comment:IgM antibodies to HB c were not detected; does not exclude the possibility of exposure to HBV. HEPATITIS A IGM Non-react nu Non-react nu 07/04/2025 11:35 AM [facility] Comment:A negative test resu lt does not exclude the possibility of exposure to Hepatitis A virus. HEPATITIS C AB NON-REACT NU Non-react nu 07/04/2025 11:35 AM [facility] Comment:Antibodies to HCV we re not detected, does not exclude the possibility of exposure to HCV. Blood Venipuncture / Unknown 07/04/2025 10:32 AM BUDGET CLERK 07/04/2025 10:48 AM BUDGET CLERK us Lorene Garcia NP CHEMISTRY ORDERABLES Final Res ult Performing Organization Address [facility] Co de Phone Number [facility] CLIA # [id number] [address] [place] [address] * (ABNORMAL) CBC WITHOUT DIFFERENTIAL (07/02/2025 7:59 AM BUDGET CLERK) Only the most recent of9 resultswithin the time period is included. WBC 8.8 4.8 - 10.8 K/uL 07/02/2025 8:10 AM [facility] RBC 2.66(L) 4.20 - 5.40 M/uL 07/02/2025 8:10 AM [facility] HEMOGLOBIN 8.8(L) 12.0 - 16.0 g/dL 07/02/2025 8:10 AM [facility] HEMATOCRIT 28.5(L) 36.0 - 46.0 % 07/02/2025 8:10 AM [facility] MCV 107.1(H) 84.0 - 103.0 fL 07/02/2025 8:10 AM [facility] MCH 33.1 27.0 - 34.0 pg 07/02/2025 8:10 AM [facility] MCHC 30.9 30.0 - 35.0 g/dL 07/02/2025 8:10 AM [facility] PLATELETS 245 140 - 440 K/uL 07/02/2025 8:10 AM [facility] MPV 11.3 8.9 - 12.8 fL 07/02/2025 8:10 AM [facility] RDW 21.6(H) 11.0 - 14.5 % 07/02/2025 8:10 AM [facility] RDW-STDEV 82.3(H) 37.0 - 54.0 fL 07/02/2025 8:10 AM [facility] Blood Venipuncture / Unknown 07/02/2025 7:59 AM BUDGET CLERK 07/02/2025 8:04 AM [facility] us Mamadou Shaikh MD HEMATOLOGY ORDERABLES Final Result [facility] CLIA # [id number] [id number] [place] [address] * HEMODIALYSIS (06/30/2025 8:45 AM BUDGET CLERK) Julia Rice MD - 06/30/2025 8:45 AM BUDGET CLERK Julia Munroe MD 06/30/2025 8:49 AM PROCEDURE: Intermittent Hemodialysis INDICATION: acute kidney injury Procedure: Utilizing the patient's vascular access, the patient was initiated on hemodialysis. Dialysis is planned for 4 hours. Blood flow of 400 ml per minute and Dialysate flow of 800 ml per minute were prescribed. The bath used was 4 mEq/L potassium, 3 mEq/L calcium, 140 mEq/L sodium and 35 mEq/L bicarbonate. UF goal: 3 L, BP stable. Revaclear 400 hollow fiber dialyzer was used. No heparin was used for anticoagulation. No complications have been encountered to this point. I was present during dialysis, and was available for the entirety of the dialysis treatment. Medications Reviewed in [facility] Physical Exam: BP 112/61 Pulse 69 Temp 97.4 F (36.3 C) Resp 20 Ht 5' 1 (1.549 m) Wt 110.1 kg (242 lb 12.8 oz) SpO2 96% BMI 45.88 kg/m Resting in bed in NAD, minimal urine output Labs: Reviewed in [facility] Lab Results Component Value Date/Time NA 141 06/30/2025 05:18 AM K 3.4 (L) 06/30/2025 05:18 AM CL 99 06/30/2025 05:18 AM CO2 25 06/30/2025 05:18 AM CA 8.9 06/30/2025 05:18 AM BUN 22 06/30/2025 05:18 AM CREAT 2.68 (H) 06/30/2025 05:18 AM GLUCOSE 111 (H) 06/30/2025 05:18 AM ANIONGAP 17 06/30/2025 05:18 AM Lab Results Component Value Date/Time WBC 15.1 (H) 06/30/2025 05:18 AM HGB 9.4 (L) 06/30/2025 05:18 AM HCT 29.6 (L) 06/30/2025 05:18 AM PLT 208 06/30/2025 05:18 AM MCV 105.0 (H) 06/30/2025 05:18 AM Lab Results Component Value Date/Time CA 8.9 06/30/2025 05:18 AM PO4 2.6 06/26/2025 07:11 AM Lab Results Component Value Date/Time TOTALPROTEIN 6.0 (L) 06/19/2025 12:45 AM ALBUMIN 3.6 06/26/2025 07:11 AM Assessment and Plan: Acute kidney injury on CKD4 Secondary to ATN and potentially cardiorenal syndrome Baseline Cr 1.6-2.0 - high risk for ESRD Remains oliguric. Started hemodialysis at [facility] S/p TDC exchange due to cuff exposure 06/22 On hemodialysis today Potassium is 3.4; on a 4 K bath. Continue TTS schedule SW assisting with OP hemodialysis in [place] Monitor for renal recovery Anemia with hb declined s/p GIB with blood in stools. S/p colonoscopy and found to have telangiectasia in the colon which was cauterized otherwise negative for bleeding. Hgb 9.4. Iron stores are low on 06/19/25. Will dose with venofer again today. # compliant with frequency and duration of dialysis: yes Julia Munroe MD [facility] 06/30/25, 8:46 AM Evelyn Brown PLAYER DEVELOPMENT EXECUTIVE DIALYSIS ORDERABLES F inal Result * (ABNORMAL) BASIC METABOLIC PANEL (06/30/2025 5:18 AM BUDGET CLERK) Only the most recent of5 resultswithin the time period is included. SODIUM 141 136 - 145 mmol/L 06/30/2025 6:44 AM [facility] POTASSIUM 3.4(L) 3.5 - 5.1 mmol/L 06/30/2025 6:44 AM [facility] CHLORIDE 99 98 - 107 mmol/L 06/30/2025 6:44 AM [facility] CO2 25 22 - 29 mmol/L 06/30/2025 6:44 AM [facility] CALCIUM 8.9 8.8 - 10.2 mg/dL 06/30/2025 6:44 AM [facility] BUN 22 8 - 23 mg/dL 06/30/2025 6:44 AM [facility] CREATININE 2.68(H) 0.51 - 0.95 mg/dL 06/30/2025 6:44 AM [facility] Comment:The GFR result is no t clinically significant on patients <18 or >70 years of age. GLUCOSE 111(H) 74 - 99 mg/dL 06/30/2025 6:44 AM [facility] GFR 18 mL/min/1. 73 sq meter 06/30/2025 6:44 AM [facility] Comment:eGFR calculated with 2020 CKD-EPI equation. Vegetarian diet, extremely high or low muscle mass, and may affect results. Cystatin C with Glomerular Filtration Rate is a suitable alternative for these patients. ANION GAP 17 9 - 20 mmol/L 06/30/2025 6:44 AM [facility] Blood Venipuncture / Unknown 06/30/2025 5:18 AM BUDGET CLERK 06/30/2025 6:08 AM BUDGET CLERK us Leonie Bolton [facility] LABORAT[facility] PROFESSIONAL CHEMISTRY ORDERABLES Fi nal Result Performing Organization Address City/State/[facility] Co de Phone Number [facility] CLIA # [id number] [address] [address] * US DOPPLER VENOUS ARM BILATERAL (06/29/2025 11:41 AM BUDGET CLERK) Anatomical Region Laterality Modality Upper Extremity Ultrasound 06/29/2025 10:3 1 AM BUDGET CLERK Narrative 06/29/2025 12:00 PM [facility] Cardiovascular Services Noninvasive Vascular Laboratory [address] [place] [address] Noninvasive Vascular Lab Venous Exam Complete Upper Extremity Duplex Patient: Kayla Santos Study ID: US DOPPLER VENOU Gender: F : 1945 Age: 79 Room: Height: Weight: BSA: Pt status: Inpatient Study Date: 06/29/2025 Study Time: 10:31:25 AM BSA: Ordering: Chantell Peace Interpreting:Ant Alexander Retort Pre Cooker: Shayy Mohr Indications: DVT, cellulitis. Summary Impression: 1. Study demonstrates superficial thrombophlebitis in the bilateral basilic veins. 2. No evidence of deep vein thrombosis bilateral upper extremities. Study data: Bilateral upper extremity venous duplex. Doppler flow study including spectral analysis, color and mak scale imaging. Location: Bedside. Patient status: Inpatient. Study status: Routine. Procedure: A vascular evaluation was performed. Image quality was good. Venous flow and imaging: - Right internal jugular Patent; Normal phasicity; spontaneous; normal augmentation - Right subclavian Patent; Normal phasicity; spontaneous; normal augmentation - Right axillary Patent; Normal phasicity; spontaneous; compressible; normal augmentation - Right brachial Patent; Normal phasicity; spontaneous; compressible; normal augmentation - Right cephalic Patent; Compressible - Right basilic Totally thrombosed; Noncompressible Acute At level of IV. - Right radial Patent; Compressible - Right ulnar Patent; Compressible - Left internal jugular Patent; Normal phasicity; spontaneous; normal augmentation - Left subclavian Patent; Normal phasicity; spontaneous; normal augmentation - Left axillary Patent; Normal phasicity; spontaneous; compressible; normal augmentation - Left brachial Patent; Normal phasicity; spontaneous; compressible; normal augmentation - Left cephalic Patent; Compressible - Left basilic Totally thrombosed; Noncompressible Acute Small segment near AC space. - Left radial Patent; Compressible - Left ulnar Patent; Compressible CRITICAL FINDINGS - Reported to: Lorenza - 06/29/2025 - 1115 - [facility] Vascular Lab is accredited with the Intersocietal Commission for the Accreditation of Vascular Laboratories (ICAVL) Prepared and Electronically Authenticated Ant Alexander Confirmed 06/29/2025 11:59 Procedure Note Ant Alexander MD - 06/29/2025 [facility] Cardiovascular Services Noninvasive Vascular Laboratory [address] [place] [address] Noninvasive Vascular Lab Venous Exam Complete Upper Extremity Duplex Patient: Kayla Santos Study ID: US DOPPLER VENOU Gender: F : 1945 Age: 79 Room: Height: Weight: BSA: Pt status: Inpatient Study Date: 06/29/2025 Study Time: 10:31:25 AM BSA: Ordering: Chantell Peace Interpreting:Ant Alexander Retort Pre Cooker: Shayy Mohr Indications: DVT, cellulitis. Summary Impression: 1. Study demonstrates superficial thrombophlebitis in the bilateralbasilic veins. 2. No evidence of deep vein thrombosis bilateral upper extremities. Study data: Bilateral upper extremity venous duplex. Doppler flowstudy including spectral analysis, color and mak scale imaging. Location: Bedside. Patient status: Inpatient. Study status: Routine.Procedure: A vascular evaluation was performed. Image quality was good. Venous flow and imaging: - Right internal jugular Patent; Normal phasicity; spontaneous; normal augmentation - Right subclavian Patent; Normal phasicity; spontaneous; normalaugmentation - Right axillary Patent; Normal phasicity; spontaneous; compressible;normal augmentation - Right brachial Patent; Normal phasicity; spontaneous; compressible;normal augmentation - Right cephalic Patent; Compressible - Right basilic Totally thrombosed; Noncompressible Acute At level ofIV. - Right radial Patent; Compressible - Right ulnar Patent; Compressible - Left internal jugular Patent; Normal phasicity; spontaneous; normal augmentation - Left subclavian Patent; Normal phasicity; spontaneous; normalaugmentation - Left axillary Patent; Normal phasicity; spontaneous; compressible;normal augmentation - Left brachial Patent; Normal phasicity; spontaneous; compressible;normal augmentation - Left cephalic Patent; Compressible - Left basilic Totally thrombosed; Noncompressible Acute Small segmentnear AC space. - Left radial Patent; Compressible - Left ulnar Patent; Compressible CRITICAL FINDINGS - Reported to: Lorenza Berry 06/29/2025 - 1115 - [facility] Vascular Lab is accredited with theIntersocietal Commission for the Accreditation of Vascular Laboratories (ICAVL) Prepared and Electronically Authenticated Catherine Ant Confirmed 06/29/2025 11:59 us Chantell Peace MD ORDERABLES Final Resul t * COLONOSCOPY REPORT (06/29/2025 9:31 AM BUDGET CLERK) Narrative Procedure Note Александр Gregorio MD - 06/29/2025 9:31 AM CST [facility] GI Patient Name: Kayla Santos Procedure Date: 06/29/2025 Date of : 1945 Admit Type: Outpatient Age: 79 Attending MD: Александр Gregorio MD, Procedure: Colonoscopy Indications: BRBPR Providers: Александр Gregorio MD Referring MD: Medicines: Monitored Anesthesia Care Complications: No immediate complications. Procedure: After I obtained informed consent, the scope was passed under direct vision. Throughout the procedure, the patient's blood pressure, pulse, and oxygen saturations were monitored continuously. The Colonoscope was introduced through the anus and advanced to the terminal ileum. The quality of the bowel preparation was adequate. Estimated Blood Loss: Estimated blood loss: none. Findings: Non-bleeding internal hemorrhoids were found. The hemorrhoids were Grade I (internal hemorrhoids that do not prolapse). Multiple medium-mouthed and small-mouthed diverticula were found in the sigmoid colon and descending colon. A single small angioectasia without bleeding was found in the ascending colon. Coagulation for hemostasis using bipolar probe was successful. The terminal ileum appeared normal. Impression: - Non-bleeding internal hemorrhoids. - Diverticulosis in the sigmoid colon and in the descending colon. - A single non-bleeding colonic angioectasia. Treated with bipolar cautery. - The examined portion of the ileum was normal. - No specimens collected. Recommendation: Monitor for rebleeding If hemodynamically significant bleeding reemerges, would recommend CT angio Александр Gregorio MD 06/29/2025 9:31:09 AM Number of Addenda: 0 Note Initiated On: 06/29/2025 8:42 AM Scope Withdrawal Time 0 hours 12 minutes 8 seconds Scope In: 8:58:41 AM Scope Out: 9:25:17 AM [address] [place], [place] us Александр Gregorio MD GI PROCEDURE ORDERABLES F inal Result * EKG 12-LEAD (06/28/2025 5:53 PM BUDGET CLERK) Only the most recent of4 resultswithin the time period is included. 06/28/2025 5:53 PM BUDGET CLERK Narrative INTERFACE SYSTEM - 06/29/2025 6:42 AM BUDGET CLERK [facility] [address] [place] [address] Test Date: 2025-06-28 Pat Name: KAYLA SANTOS Department: 12 Room: [address] [place] [address] Gender: Female Manager Spanish: [email or web address] : 1945 Requested By: Order Number: [id number] Reading MD: Marleny Diana Measurements Intervals [place] Rate: 82 P: 0 MS: 0 QRS: 260 QRSD: 154 T: 162 QT: 414 QTc: 483 Interpretive Statements sinus Right superior axis deviation Left bundle branch block Abnormal ECG Electronically Signed On 06-29-2025 6:42:43 BUDGET CLERK by Marleny Diana Procedure Note Provider, Historical - 06/29/2025 [facility] [address] [place] [address] Test Date: 2025-06-28 Pat Name: KAYLA SANTOS Department: 12 Room: [address] [place] [address] Gender: Female Manager Spanish: [email or web address] : 1945 Requested By: Order Number: [id number] Reading MD: Marleny Diana Measurements Intervals [place] Rate: 82 P: 0 MS: 0 QRS: 260 QRSD: 154 T: 162 QT: 414 QTc: 483 Interpretive Statements sinus Right superior axis deviation Left bundle branch block Abnormal ECG Electronically Signed On 06-29-2025 6:42:43 BUDGET CLERK by Marleny Diana us Ronak Reed MD ECG ORDERABLES Final Result INTERFACE SYSTEM Refer to clinic/hospital department * (ABNORMAL) HEMOGLOBIN AND HEMATOCRIT (06/27/2025 11:37 PM BUDGET CLERK) Only the most recent of9 resultswithin the time period is included. HEMOGLOBIN 8.9(L) 12.0 - 16.0 g/dL 06/27/2025 11:46 PM BUDGET CLERK [facility] HEMATOCRIT 27.3(L) 36.0 - 46.0 % 06/27/2025 11:46 PM BUDGET CLERK [facility] Blood Venipuncture / Unknown 06/27/2025 11:37 PM BUDGET CLERK 06/27/2025 11:41 PM BUDGET CLERK us Chantell Peace MD HEMATOLOGY ORDERABLES Final Result [facility] CLIA # [id number] [address] [place] [address] * HEMODIALYSIS (06/27/2025 11:08 AM BUDGET CLERK) Narrative Uma Bourne MD - 06/27/2025 11:08 AM BUDGET CLERK Uma Bourne MD 06/28/2025 8:42 AM PROCEDURE: Intermittent Hemodialysis INDICATION: acute kidney injury Procedure: Utilizing the patient's vascular access, the patient was initiated on hemodialysis. Dialysis is planned for 4 hours. Blood flow of 400 ml per minute and Dialysate flow of 800 ml per minute were prescribed. The bath used was 3 mEq/L potassium, 3 mEq/L calcium, 140 mEq/L sodium and 35 mEq/L bicarbonate. UF goal: 2 L, BP stable. Revaclear 400 hollow fiber dialyzer was used. No heparin was used for anticoagulation. No complications have been encountered to this point. I was present during dialysis, and was available for the entirety of the dialysis treatment. Medications Reviewed in [facility] Physical Exam: BP (!) 116/101 Pulse 81 Temp 97.8 F (36.6 C) Resp 21 Ht 5' 1 (1.549 m) Wt 116 kg (255 lb 11.7 oz) SpO2 100% BMI 48.32 kg/m Resting in bed in NAD, minimal urine output Labs: Reviewed in [facility] Lab Results Component Value Date/Time NA 139 06/27/2025 12:37 AM K 4.0 06/27/2025 12:37 AM CL 101 06/27/2025 12:37 AM CO2 23 06/27/2025 12:37 AM CA 8.9 06/27/2025 12:37 AM BUN 24 (H) 06/27/2025 12:37 AM CREAT 2.23 (H) 06/27/2025 12:37 AM GLUCOSE 96 06/27/2025 12:37 AM ANIONGAP 15 06/27/2025 12:37 AM Lab Results Component Value Date/Time WBC 15.1 (H) 06/27/2025 12:37 AM HGB 9.7 (L) 06/27/2025 12:37 AM HCT 30.0 (L) 06/27/2025 12:37 AM PLT 251 06/27/2025 12:37 AM MCV 101.7 06/27/2025 12:37 AM Lab Results Component Value Date/Time CA 8.9 06/27/2025 12:37 AM PO4 2.6 06/26/2025 07:11 AM Lab Results Component Value Date/Time TOTALPROTEIN 6.0 (L) 06/19/2025 12:45 AM ALBUMIN 3.6 06/26/2025 07:11 AM Assessment and Plan: Acute kidney injury on CKD4 Secondary to ATN and potentially cardiorenal syndrome Baseline Cr 1.6-2.0 - high risk for ESRD Remains oliguric. Started hemodialysis at [facility] S/p TDC exchange due to cuff exposure 06/22 On hemodialysis today Continue TTS schedule SW assisting with OP hemodialysis in [place] Monitor for renal recovery Anemia with hb declined s/p GIB with blood in stools possibly diverticular bleed- transfuse for Hb <7. GI following. Hgb 9.7. Iron stores are low on 06/19/25. Will dose with venofer. Colonoscopy planned Sunday, bowel poorly preppred could not be completed today # compliant with frequency and duration of dialysis: yes Cecil Tafoya NP [facility] 06/27/25, 11:08 AM Evelyn Brown NP DIALYSIS ORDERABLES F inal Result * COLONOSCOPY REPORT (06/27/2025 8:49 AM BUDGET CLERK) Narrative Procedure Note Александр Gregorio MD - 06/27/2025 8:49 AM CST [facility] GI Patient Name: Kayla Santos Procedure Date: 06/27/2025 Date of : 1945 Admit Type: Inpatient Age: 79 Attending MD: Александр Gregorio MD, Procedure: Colonoscopy Indications: brbpr Providers: Александр Gregorio MD Referring MD: Medicines: Monitored Anesthesia Care Complications: No immediate complications. Procedure: After I obtained informed consent, the scope was passed under direct vision. Throughout the procedure, the patient's blood pressure, pulse, and oxygen saturations were monitored continuously. The Colonoscope was introduced through the anus with the intention of advancing to the cecum. The scope was advanced to the rectum before the procedure was aborted. Medications were given. The quality of the bowel preparation was inadequate Estimated Blood Loss: Estimated blood loss: none. Findings: There was dark stool and semisolid debris clogging the scope in the rectum, the scope was withdrawn Impression: - Inadequate prep Recommendation: - Clear liquid diet - Repeat bowel prep Sunday for possible colonoscopy Sunday - N.p.o. after midnight early Sunday morning for colonoscopy Sunday - If brisk bleeding re-emerges CT angio and/or tagged RBC scan for localization Александр Gregorio MD 06/27/2025 8:47:18 AM Number of Addenda: 0 Note Initiated On: 06/27/2025 8:17 AM Scope Withdrawal Time Scope In: 8:40:05 AM Scope Out: 8:41:14 AM [address] [place], [place] us Александр Gregorio MD GI PROCEDURE ORDERABLES E dited Result - Final * (ABNORMAL) POC GLUCOSE (06/26/2025 7:12 AM BUDGET CLERK) Only the most recent of40 resultswithin the time period is included. GLUCOSE POC 104(H) 74 - 99 mg/dL 06/26/2025 7:12 AM BUDGET CLERK [facility] SPECIMEN SOURCE, GLUCOSE POC Venous 06/26/2025 7:12 AM BUDGET CLERK [facility] Blood, whole 06/26/2025 7:12 AM BUDGET CLERK 06/26/2025 7:21 AM BUDGET CLERK us Chantell Peace MD POINT OF CARE TESTING Final Result [facility] CLIA # [id number] [address] [address] [place] [address] * HEMODIALYSIS (06/25/2025 12:08 PM BUDGET CLERK) Narrative Julia Munroe MD - 06/25/2025 12:08 PM BUDGET CLERK Julia Munroe MD 06/25/2025 12:20 PM PROCEDURE: Intermittent Hemodialysis INDICATION: acute kidney injury Procedure: Utilizing the patient's vascular access, the patient was initiated on hemodialysis. Dialysis is planned for 4 hours. Blood flow of 400 ml per minute and Dialysate flow of 800 ml per minute were prescribed. The bath used was 3 mEq/L potassium, 3 mEq/L calcium, 140 mEq/L sodium and 35 mEq/L bicarbonate. UF goal: 2 L, BP stable. Revaclear 400 hollow fiber dialyzer was used. No heparin was used for anticoagulation. No complications have been encountered to this point. I was present during dialysis, and was available for the entirety of the dialysis treatment. Medications Reviewed in [facility] Physical Exam: BP 108/79 (BP Location: Left arm, Patient Position (BP): Supine) Pulse 73 Temp 97.6 F (36.4 C) (Axillary) Resp 22 Ht 5' 1 (1.549 m) Wt 108 kg (238 lb) SpO2 96% BMI 44.97 kg/m Resting in bed in NAD, having bloody stools, reports making minimal dark urine. Labs: Reviewed in [facility] Lab Results Component Value Date/Time NA 136 06/25/2025 05:15 AM K 4.7 06/25/2025 05:15 AM CL 100 06/25/2025 05:15 AM CO2 24 06/25/2025 05:15 AM CA 9.0 06/25/2025 05:15 AM BUN 39 (H) 06/25/2025 05:15 AM CREAT 2.81 (H) 06/25/2025 05:15 AM GLUCOSE 103 (H) 06/25/2025 05:15 AM ANIONGAP 12 06/25/2025 05:15 AM Lab Results Component Value Date/Time WBC 17.0 (H) 06/25/2025 05:15 AM HGB 10.0 (L) 06/25/2025 05:15 AM HCT 30.2 (L) 06/25/2025 05:15 AM PLT 260 06/25/2025 05:15 AM MCV 100.0 06/25/2025 05:15 AM Lab Results Component Value Date/Time CA 9.0 06/25/2025 05:15 AM PO4 3.7 06/25/2025 05:15 AM Lab Results Component Value Date/Time TOTALPROTEIN 6.0 (L) 06/19/2025 12:45 AM ALBUMIN 3.7 06/25/2025 05:15 AM Assessment and Plan: Acute kidney injury on CKD4 Secondary to ATN and potentially cardiorenal syndrome Baseline Cr 1.6-2.0 - high risk for ESRD Remains oliguric. Started hemodialysis at [facility] S/p TDC exchange due to cuff exposure 06/22 On hemodialysis today Continue TTS schedule SW assisting with OP hemodialysis in [place] Monitor for renal recovery Anemia with hb declined s/p GIB with blood in stools possibly diverticular bleed- transfuse for Hb <7. GI following. Hgb 10.0. Iron stores are low on 06/19/25. Will dose with venofer. # compliant with frequency and duration of dialysis: yes Julia Munroe MD [facility] 06/25/25, 12:08 PM Evelyn Brown NP DIALYSIS ORDERABLES E dited Result - Final * CTA ABD PELVIS W AND/OR WO CONTRAST (06/24/2025 11:38 AM BUDGET CLERK) Anatomical Region Laterality Modality Abdomen Computed Tomogra phy 06/24/2025 11:4 0 AM BUDGET CLERK Narrative 06/24/2025 11:55 AM BUDGET CLERK Exam: CTA ABD PELVIS W AND/OR WO CONTRAST Date/Time of Exam: 06/24/2025 11:38 AM Reason For Exam: Lower GI bleed, GI bleed. Diagnosis: Mitral valve insufficiency, unspecified etiology. Technique: CTA of the abdomen was performed prior to and following the administration of intravenous contrast. Post-processing was performed, including sagittal and coronal reformations and 3-D reconstruction. Contrast: Isovue-300 Comparison: None. Findings: Lower chest: The heart is globally enlarged without pericardial effusion. Dialysis catheter terminates in the right atrium. There is right greater than left basilar atelectasis with a small right pleural effusion and trace left pleural effusion. ABDOMEN: Hepatic attenuation is heterogeneous without focal lesion. There is a small volume of perihepatic ascites. High density material in the gallbladder likely reflects vicarious excretion of contrast from prior study. No definite stones. No biliary ductal dilatation. Infused appearance of the pancreas, spleen, and adrenal glands is normal. There is bilateral renal cortical thinning and scarring. Tiny low-density lesions likely reflect cysts. Small hyperdense lesion in the upper pole of the right kidney is consistent with a hyperdense cyst. A moderate size hiatal hernia is noted. The small bowel caliber is normal without evidence of obstruction. The appendix is not dilated. Contrast is present throughout the colon from prior study which limits evaluation for active gastrointestinal bleeding. Diverticulosis is noted throughout the descending and sigmoid colon. Pelvis: Contrast is present in the bladder. Uterus is surgically absent. There is mild presacral edema. Trace volume of free fluid noted in the cul-de-sac. No inguinal hernia. Vascular: Atherosclerotic calcifications are present in the aorta and major branches. The celiac, superior mesenteric, and renal arteries are patent. No focal iliac artery stenosis. MUSCULOSKELETAL: Degenerative changes are noted throughout the lumbar spine. Posterior franko and pedicle screw fixation extends from L3 through L5. Anasarca noted within the soft tissues. ++++++++++++++++++++ IMPRESSION Extensive colonic diverticulosis without evidence of active bleeding given the above limitation of existing contrast noted throughout the colon. Small right pleural effusion, trace left pleural effusion, trace ascites, and anasarca suggesting fluid overload. Hepatic steatosis. Moderate size hiatal hernia. Procedure Note Vasu Barfield MD - 06/24/2025 Exam: CTA ABD PELVIS W AND/OR WO CONTRAST Date/Time of Exam: 06/24/2025 11:38 AM Reason For Exam: Lower GI bleed, GI bleed. Diagnosis: Mitral valve insufficiency, unspecified etiology. Technique: CTA of the abdomen was performed prior to and following the administration of intravenous contrast. Post-processing was performed, including sagittal and coronal reformations and 3-D reconstruction. Contrast: Isovue-300 Comparison: None. Findings: Lower chest: The heart is globally enlarged without pericardial effusion. Dialysis catheter terminates in the right atrium. There is right greater than left basilar atelectasis with a small right pleural effusion and trace left pleural effusion. ABDOMEN: Hepatic attenuation is heterogeneous without focal lesion. There is a small volume of perihepatic ascites. High density material in the gallbladder likely reflects vicarious excretion of contrast from prior study. No definite stones. No biliary ductal dilatation. Infused appearance of the pancreas, spleen, and adrenal glands is normal. There is bilateral renal cortical thinning and scarring. Tiny low-density lesions likely reflect cysts. Small hyperdense lesion in the upper pole of the right kidney is consistent with a hyperdense cyst. A moderate size hiatal hernia is noted. The small bowel caliber is normal without evidence of obstruction. The appendix is not dilated. Contrast is present throughout the colon from prior study which limits evaluation for active gastrointestinal bleeding. Diverticulosis is noted throughout the descending and sigmoid colon. Pelvis: Contrast is present in the bladder. Uterus is surgically absent. There is mild presacral edema. Trace volume of free fluid noted in the cul-de-sac. No inguinal hernia. Vascular: Atherosclerotic calcifications are present in the aorta and major branches. The celiac, superior mesenteric, and renal arteries are patent. No focal iliac artery stenosis. MUSCULOSKELETAL: Degenerative changes are noted throughout the lumbar spine. Posterior franko and pedicle screw fixation extends from L3 through L5. Anasarca noted within the soft tissues. ++++++++++++++++++++ IMPRESSION Extensive colonic diverticulosis without evidence of active bleeding given the above limitation of existing contrast noted throughout the colon. Small right pleural effusion, trace left pleural effusion, trace ascites, and anasarca suggesting fluid overload. Hepatic steatosis. Moderate size hiatal hernia. Merna Street MD CT ORDERABLES Final Result * TRANSFUSE RED BLOOD CELLS (06/23/2025 10:46 PM BUDGET CLERK) Only the most recent of2 resultswithin the time period is included. Merna Street MD BLOOD TRANSFUSION ORDERABLES F inal Result * PREPARE RED BLOOD CELLS (06/23/2025 6:14 PM BUDGET CLERK) Only the most recent of3 resultswithin the time period is included. COMPONENT TYPE [id number] [facility] [place] COMPONENT IDENTIFICATION [id number] [facility] [place] UNIT ABO A [facility] [place] UN[facility] RH POS [facility] [place] CROSSMATCH Compatible [facility] [place] COMPONENT STATUS Returned [facility] [place] COMPONENT EXPIRATION DATE/TIME [id number] [facility] [place] COMPONENT CODING SYSTEM [id number] [facility] [place] VOLUME, BLOOD PRODUCT 350 [facility] [place] 06/23/2025 6:14 PM BUDGET CLERK [address] MD LAB TRANSFUSION ORDERABLES Ron jared Result - Final Performing Organization Address City/[facility]/ZIP Co de Phone Number [facility] [employer] [facility] [place] CLIA#[id number] [address] [place] [address], * LACTIC ACID (06/23/2025 7:24 AM BUDGET CLERK) Pathologist [facility] LACTIC ACID 1.2 <=2.0 mmol/L 06/23/2025 7:59 AM BUDGET CLERK [facility] [place] Blood Venipuncture / Unknown 06/23/2025 7:24 AM BUDGET CLERK 06/23/2025 7:30 AM BUDGET CLERK Gary An DO CHEMISTRY ORDERABLES Final R esult Performing Organization Address City/[facility]/ZIP Co de Phone Number [facility] [employer] [facility] [place] CLIA # [id number] [facility] [place] [address] * TYPE AND SCREEN (06/22/2025 11:25 PM BUDGET CLERK) ABO GROUP A 06/23/2025 12:36 AM BUDGET CLERK [facility] [place] RH (D) TYPE Positive 06/23/2025 12:36 AM BUDGET CLERK [facility] [place] ANTIBODY SCREEN Negative 06/23/2025 12:36 AM BUDGET CLERK [facility] [place] Blood Venipuncture / Unknown 06/22/2025 11:25 PM BUDGET CLERK 06/22/2025 11:44 PM BUDGET CLERK Brigitte Velázquez MD BLOOD BANK ORDERABLES E dited Result - Final [facility] [place] CLIA#[id number] [address] [place] [address], [place] [phone] * IR VENOUS ACCESS (06/22/2025 4:14 PM BUDGET CLERK) Anatomical Region Laterality Modality X-Ray Angiograph y 06/22/2025 4:14 PM BUDGET CLERK Impressions 06/22/2025 4:42 PM BUDGET CLERK IMPRESSION: Please see below. Date: 06/22/2025 4:14 PM. Reason For Exam: Tunneled Dialysis Catheter. Diagnosis: Mitral valve insufficiency, unspecified etiology. Assessment Specialist: Dr. Barfield Access site: Right internal jugular vein. Catheter Tip Location: Right atrium. Procedure: 1. Pre-procedural limited diagnostic ultrasound of the above mentioned neck and chest. 2. Ultrasound guided central venous access. 3. Placement of a new 19 cm palindrome dialysis catheter using fluoroscopy. 4. Removal of the malpositioned previously placed tunneled dialysis catheter. Findings: 1. Duplex ultrasound of the above mentioned neck showed a normal appearing artery and vein. 2. Placement of the dialysis catheter was without difficulty. Moderate (conscious) sedation for this procedure was performed with continuous physician supervision. Medical history, physical exam, drug dosages, routes of drug administration, monitoring data, and precise times of service are documented in the medical record on the [facility] form, 'Sedative/Analgesic Administration for Diagnostic and Therapeutic Procedures'. Please see nursing flow sheets for dosage and time. Contrast: None. Complications: None. Estimated Blood Loss: Minimal. Technique: The procedure, with the risks and benefits, were discussed with the patient and/or family. Specific risks include injury to blood vessels, lung, nerves, heart and liver. Informed and written consent were obtained and placed in the patient's chart. The patient was brought to the angiography suite and placed on the table in the supine position. The patients above mentioned neck and chest were evaluated with ultrasound. The patient was connected to hemodynamic monitoring including blood pressure cuff, pulse oximetry and EKG. The patient was sedated with the above mentioned drugs during the above mentioned time periods. The existing dialysis catheter was malpositioned and not suitable for exchange. This was removed without difficulty. The above mentioned neck and chest were prepped and draped in the normal sterile fashion. Ultrasound was used to evaluate the above mentioned vein for potential vascular access and the vein was shown to be patent. Local anesthesia was obtained by injecting 1% lidocaine subcutaneously. Under ultrasound guidance, the above mentioned vein was percutaneously cannulated. A permanent image was created and recorded for the patient record. A small dermatotomy using an 11 blade scalpel was made at the skin site. An .018 wire was advanced through the needle under fluoroscopy. The needle was exchanged over the wire for a 4 Fr coaxial dilator. The .018 wire and inner portions of the dilator were exchanged for a .035 braided guidewire. The .035 wire was advanced though the dilator into the superior vena cava under fluoroscopy. The 4 Fr dilator was exchanged over the wire and dilation was performed; eventually a peel-away sheath was placed. A small dermatotomy in the ipsilateral chest was made with an 11 blade scalpel. A dialysis catheter was tunneled to the venotomy site using a tunneling device. The dialysis catheter was placed through the peel away sheath and advanced under fluoroscopy - the tip location is given above. A final spot radiograph image demonstrates the tip of the catheter in the above mentioned location. The lumens of the dialysis catheter were capped with needleless caps and flushed with heparinized saline per hospital protocol. The catheter was sutured to the skin with 2-0 nylon suture. The venotomy site was closed using steri-strips. The dialysis catheter skin exit site was covered with a sterile dressing per hospital protocol. The venotomy site was covered with a sterile dressing. The patient tolerated the procedure well and left the angiography suite in stable condition. ++++++++++++++++++++ IMPRESSION: Successful placement of a right internal jugular tunneled dialysis catheter with the tip of the catheter in the right atrium. The catheter is ready for use. Narrative Procedure Note Vasu Barfield MD - 06/22/2025 IMPRESSION: Please see below. Date: 06/22/2025 4:14 PM. Reason For Exam: Tunneled Dialysis Catheter. Diagnosis: Mitral valve insufficiency, unspecified etiology. Assessment Specialist: Dr. Barfield Access site: Right internal jugular vein. Catheter Tip Location: Right atrium. Procedure: 1. Pre-procedural limited diagnostic ultrasound of the above mentioned neck and chest. 2. Ultrasound guided central venous access. 3. Placement of a new 19 cm palindrome dialysis catheter using fluoroscopy. 4. Removal of the malpositioned previously placed tunneled dialysis catheter. Findings: 1. Duplex ultrasound of the above mentioned neck showed a normal appearing artery and vein. 2. Placement of the dialysis catheter was without difficulty. Moderate (conscious) sedation for this procedure was performed with continuous physician supervision. Medical history, physical exam, drug dosages, routes of drug administration, monitoring data, and precise times of service are documented in the medical record on the [facility]-approved form, 'Sedative/Analgesic Administration for Diagnostic and Therapeutic Procedures'. Please see nursing flow sheets for dosage and time. Contrast: None. Complications: None. Estimated Blood Loss: Minimal. Technique: The procedure, with the risks and benefits, were discussed with the patient and/or family. Specific risks include injury to blood vessels, lung, nerves, heart and liver. Informed and written consent were obtained and placed in the patient's chart. The patient was brought to the angiography suite and placed on the table in the supine position. The patients above mentioned neck and chest were evaluated with ultrasound. The patient was connected to hemodynamic monitoring including blood pressure cuff, pulse oximetry and EKG. The patient was sedated with the above mentioned drugs during the above mentioned time periods. The existing dialysis catheter was malpositioned and not suitable for exchange. This was removed without difficulty. The above mentioned neck and chest were prepped and draped in the normal sterile fashion. Ultrasound was used to evaluate the above mentioned vein for potential vascular access and the vein was shown to be patent. Local anesthesia was obtained by injecting 1% lidocaine subcutaneously. Under ultrasound guidance, the above mentioned vein was percutaneously cannulated. A permanent image was created and recorded for the patient record. A small dermatotomy using an 11 blade scalpel was made at the skin site. An .018 wire was advanced through the needle under fluoroscopy. The needle was exchanged over the wire for a 4 Fr coaxial dilator. The .018 wire and inner portions of the dilator were exchanged for a .035 braided guidewire. The .035 wire was advanced though the dilator into the superior vena cava under fluoroscopy. The 4 Fr dilator was exchanged over the wire and dilation was performed; eventually a peel-away sheath was placed. A small dermatotomy in the ipsilateral chest was made with an 11 blade scalpel. A dialysis catheter was tunneled to the venotomy site using a tunneling device. The dialysis catheter was placed through the peel away sheath and advanced under fluoroscopy - the tip location is given above. A final spot radiograph image demonstrates the tip of the catheter in the above mentioned location. The lumens of the dialysis catheter were capped with needleless caps and flushed with heparinized saline per hospital protocol. The catheter was sutured to the skin with 2-0 nylon suture. The venotomy site was closed using steri-strips. The dialysis catheter skin exit site was covered with a sterile dressing per hospital protocol. The venotomy site was covered with a sterile dressing. The patient tolerated the procedure well and left the angiography suite in stable condition. ++++++++++++++++++++ IMPRESSION: Successful placement of a right internal jugular tunneled dialysis catheter with the tip of the catheter in the right atrium. The catheter is ready for use. us Alejandra Littlejohn MD IR ORDERABLES Final Result * (ABNORMAL) PROTIME-INR (06/22/2025 4:39 AM BUDGET CLERK) PROTIME 16.0(H) 12.7 - 14.9 Seconds 06/22/2025 5:00 AM BUDGET CLERK [facility] INR 1.2 0.8 - 1.2 06/22/2025 5:00 AM BUDGET CLERK [facility] Blood Venipuncture / Unknown 06/22/2025 4:39 AM BUDGET CLERK 06/22/2025 4:45 AM [facility] Narrative [facility] - 06/22/2025 5:00 AM BUDGET CLERK Expected Values for INR: DVT/PE Goal INR 2.5; range 2.0 - 3.0 Valve Replacement Tissue Goal INR 2.5; range 2.0 - 3.0 Valve Replacement Mechanical Goal INR 3.0; range 2.5 - 3.5 POST-CT Goal INR 2.5; range 2.0 - 3.0 or Goal INR 3.0; range 2.5 - 3.5 Atrial Fibrillation Goal INR 2.5; range 2.0 - 3.0 Ischemic Stroke Goal INR 2.5; range 2.0 - 3.0 Alejandra Littlejohn MD HEMATOLOGY ORDERABLES Final Resu lt [facility] CLIA # [id number] [facility] [address] * ECHO COMPLETE - CONTRAST AND STRAIN IF INDICATED (06/21/2025 3:01 PM BUDGET CLERK) EJECTION FRACTION 24 INTERFACE SYSTEM 06/21/2025 2:00 PM [facility] INTERFACE SYSTEM - 06/21/2025 4:24 PM [facility] Services Echocardiography Laboratory [address] [place] [id number] Transthoracic Echocardiography Patient: Kayla Santos Study ID: ECHO COMPLETE - Gender: F : 1945 Age: 79 Room: [facility] Study Date: 06/21/2025 Pt Status: Inpatient Study Time: 02:00:22 PM CSN #: [id number] Ordering:Lolly Cruz Retort Pre Cooker: CECILIA Indications and History: HF, Cardiomyopathy; Re-evaluation to guide therapy. Summary and Conclusion: - Left ventricle: The cavity size is normal. Wall thickness is increased in a pattern of moderate LVH. Global systolic function is severely reduced. The estimated ejection fraction is 25%. For Epic reporting: the left ventricular ejection fraction is 24%. There is diffuse hypokinesis. Findings consistent with left ventricular diastolic dysfunction. The global longitudinal strain is -4% (Normal range is -18 to -25). - Right ventricle: The cavity size is normal. Systolic function is mildly reduced. Systolic pressure is mildly increased. - Left atrium: The atrium is dilated. - Aortic valve: The valve is trileaflet. The leaflets are mildly thickened and mildly calcified. There is trivial stenosis. There is mild regurgitation. The mean systolic gradient is 12mm Hg. - Mitral valve: Mildly thickened. There is severe regurgitation. - Tricuspid valve: There is moderate regurgitation. - Pulmonic valve: There is mild regurgitation. Procedure information: No prior study is available for comparison. Study status: Routine. Procedure: A transthoracic echocardiogram was performed. Image quality was adequate. Scanning was performed from the parasternal, apical, subcostal, and suprasternal notch acoustic windows. Study components: M-mode, 2D, complete spectral Doppler, color Doppler, and strain imaging. Height: 154.9cm. Height: 61in. Weight: 108.8kg. Weight: 239.9lb. BMI: 45.3kg/m^2. BSA: 2.23m^2. Study date: 06/21/2025. Study time: 02:00 PM. Location: ICU/CCU Cardiac Anatomy: LEFT VENTRICLE: The cavity size is normal. Wall thickness is increased in a pattern of moderate LVH. Global systolic function is severely reduced. The estimated ejection fraction is 25%. For Epic reporting: the left ventricular ejection fraction is 24%. There is diffuse hypokinesis. The longitudinal strain is -4.0% (Normal range is -18 to -25). The global longitudinal strain is -4% (Normal range is -18 to -25). Findings consistent with left ventricular diastolic dysfunction. RIGHT VENTRICLE: The cavity size is normal. Systolic function is mildly reduced. Systolic pressure is mildly increased. LEFT ATRIUM: The atrium is dilated. RIGHT ATRIUM: The atrium is normal in size. ATRIAL SEPTUM: No obvious PFO or ASD identified by 2D imaging and color Doppler. AORTIC VALVE: The valve is trileaflet. The leaflets are mildly thickened and mildly calcified. Mobility is not restricted. There is trivial stenosis. There is mild regurgitation. MITRAL VALVE: Mildly thickened. Mobility is not restricted. No evidence for prolapse. There is no evidence for stenosis. There is severe regurgitation. TRICUSPID VALVE: Structurally normal valve. Mobility is unrestricted. There is no evidence for stenosis. There is moderate regurgitation. PULMONIC VALVE: Not well visualized. The valve appears to be grossly normal. There is no evidence for stenosis. There is mild regurgitation. PERICARDIUM: There is no pericardial effusion. AORTA: Aortic root: The root is not dilated. Aortic arch: The vessel is not dilated. INTRACARDIAC MASS THROMBUS: No apparent intracavitary masses or thrombi detected. Measurements Left ventricle Value Right ventricle Value GLS, 2D -4.0 % ANGELES, LAX 3.1 cm IVS, ED, LAX 2.6 cm ANGELES 3.1 cm ESD, LAX 5.0 cm TAPSE, 2D 1.5 cm ESD/bsa, LAX 2.3 cm/m^2 TAPSE, MM 1.5 cm FS, LAX 21 % S' lateral 13.6 cm/sec FS, LAX chord 21 % ESD major ax, A4C 8.2 cm Left atrium Value ESD/bsa major ax, A4C 3.7 cm/m^2 AP dim, ES 4.9 cm ANGELES minor ax, A4C 8.2 cm AP dim index, ES 2.2 cm/m^2 ANGELES/bsa minor ax, A4C 3.7 cm/m^2 Area ES, A4C 30 cm^2 DONY, A4C 40.5 cm^2 SI dim, A2C 6.9 cm CAM, A4C 33.3 cm^2 Vol, ES, 1-p A4C 104 ml FAC, A4C 18 % Vol/bsa, ES, 1-p A4C 47 ml/m^2 ANGELES major ax, A2C 8.8 cm Vol, ES, 1-p A2C 153 ml ANGELES/bsa major ax, A2C 3.9 cm/m^2 Vol/bsa, ES, 1-p A2C 69 ml/m^2 DONY, A2C 36.9 cm^2 Vol, ES, 2-p 126 ml CAM, A2C 32.1 cm^2 Vol/bsa, ES, 2-p 56 ml/m^2 FAC, A2C 13 % IVS, ED 0.9 cm Right atrium Value PW, ED 1.0 cm Area, ES, A4C 27 cm^2 IVS/PW, ED 0.93 EDV 206 ml Aortic valve Value ESV 120 ml Mean v, S 155 cm/sec EF 42 % VTI, S 40.1 cm SV 41 ml Mean grad, S 12 mm Hg EDV/bsa 92 ml/m^2 LVOT/AV, VTI ratio 0.32 ESV/bsa 54 ml/m^2 MAGALYS, VTI 1.02 cm^2 SV/bsa 18 ml/m^2 MAGALYS/bsa, VTI 0.46 cm^2/m^2 EDV, 1-p A2C 130 ml ESV, 1-p A2C 31 ml Mitral valve Value EF, 1-p A2C 24 % Mean v, D 54.7 cm/sec SV, 1-p A2C 86 ml VTI leaflet coapt 25.9 cm EDV/bsa, 1-p A2C 58 ml/m^2 MiV/LVOT VTI 2.0 ESV/bsa, 1-p A2C 14 ml/m^2 Mean grad, D 2 mm Hg SV/bsa, 1-p A2C 38.6 ml/m^2 E-VTI 25.9 cm EDV, 1-p A4C 152 ml A-VTI 25.9 cm ESV, 1-p A4C 113 ml VTI E/A 1.0 EF, 1-p A4C 26 % MVA 1.58 cm^2 SV, 1-p A4C 129 ml MVA/bsa 0.71 cm^2/m^2 EDV/bsa, 1-p A4C 68 ml/m^2 MVA, LVOT cont 1.6 cm^2 ESV/bsa, 1-p A4C 51 ml/m^2 MVA/bsa, LVOT cont 0.71 cm^2/m^2 SV/bsa, 1-p A4C 58 ml/m^2 Manuela VTI 25.9 cm EDV, 2-p 141 ml Vena contracta width 3.1 cm ESV, 2-p 107 ml EF, 2-p 24 % Tricuspid valve Value SV, 2-p 34 ml TR vena contracta width 2.0 cm EDV/bsa, 2-p 63 ml/m^2 Peak RV-RA grad, S 33 mm Hg ESV/bsa, 2-p 48 ml/m^2 SV/bsa, 2-p 19.1 ml/m^2 Aortic root Value EDV, MM Teich. 206 ml S-T junct diam, ED 2.6 cm EF, MM Teich. 42 % S-T junct diam/bsa, ED 1.2 cm/m^2 EDV/bsa, MM Teich. 92 ml/m^2 EF, MM on 2D Teich. 42 % Ascending aorta Value AAo AP diam, S 3.5 cm LVOT Value AAo AP diam/bsa, S 1.6 cm/m^2 Diam, S 2.0 cm Area 3.1 cm^2 Inferior vena cava Value Peak william, S 96.4 cm/sec Diam 2.6 cm VTI, S 13.0 cm Peak grad, S 4 mm Hg SV 41 ml SV/bsa 18 ml/m^2 Legend: (L) and (H) katy values outside specified reference range. [facility] are accredited with the Intersocietal Accreditation Commission - Echocardiography. Prepared and Electronically Authenticated Vito Lay MD Confirmed 06/21/2025 16:24 Procedure Note Vito Lay MD - 06/21/2025 [facility] Cardiovascular Services Echocardiography Laboratory [address] [place] [id number] Transthoracic Echocardiography Patient: Kayla Santos Study ID: ECHO COMPLETE- Gender: F : 1945 Age: 79 Room: [facility] Study Date: 06/21/2025 Pt Status: Inpatient Study Time: 02:00:22 PM CSN #: [id number] Ordering:Lolly Cruz Ret[employer] Pre Cooker: CECILIA Indications and History: HF, Cardiomyopathy; Re-evaluation to guide therapy. Summary and Conclusion: - Left ventricle: The cavity size is normal. Wall thickness is increasedin a pattern of moderate LVH. Global systolic function is severely reduced.The estimated ejection fraction is 25%. For Epic reporting: the leftventricular ejection fraction is 24%. There is diffuse hypokinesis. Findingsconsistent with left ventricular diastolic dysfunction. The global longitudinalstrain is -4% (Normal range is -18 to -25). - Right ventricle: The cavity size is normal. Systolic function ismildly reduced. Systolic pressure is mildly increased. - Left atrium: The atrium is dilated. - Aortic valve: The valve is trileaflet. The leaflets are mildly thickenedand mildly calcified. There is trivial stenosis. There is mildregurgitation. The mean systolic gradient is 12mm Hg. - Mitral valve: Mildly thickened. There is severe regurgitation. - Tricuspid valve: There is moderate regurgitation. - Pulmonic valve: There is mild regurgitation. Procedure information: No prior study is available for comparison.Study status: Routine. Procedure: A transthoracic echocardiogram wasperformed. Image quality was adequate. Scanning was performed from the parasternal, apical, subcostal, and suprasternal notch acoustic windows.Study components: M-mode, 2D, complete spectral Doppler, color Doppler, andstrain imaging. Height: 154.9cm. Height: 61in. Weight: 108.8kg. Weight: 239.9lb. BMI: 45.3kg/m^2. BSA: 2.23m^2. Study date:06/21/2025. Study time: 02:00 PM. Location: ICU/CCU Cardiac Anatomy: LEFT VENTRICLE: The cavity size is normal. Wall thickness is increased niya pattern of moderate LVH. Global systolic function is severely reduced.The estimated ejection fraction is 25%. For Epic reporting: the leftventricular ejection fraction is 24%. There is diffuse hypokinesis. The longitudinal strain is -4.0% (Normal range is -18 to -25). The global longitudinalstrain is -4% (Normal range is -18 to -25). Findings consistent with leftventricular diastolic dysfunction. RIGHT VENTRICLE: The cavity size is normal. Systolic function is mildly reduced. Systolic pressure is mildly increased. LEFT ATRIUM: The atrium is dilated. RIGHT ATRIUM: The atrium is normal in size. ATRIAL SEPTUM: No obvious PFO or ASD identified by 2D imaging and color Doppler. AORTIC VALVE: The valve is trileaflet. The leaflets are mildly thickenedand mildly calcified. Mobility is not restricted. There is trivialstenosis. There is mild regurgitation. MITRAL VALVE: Mildly thickened. Mobility is not restricted. No evidencefor prolapse. There is no evidence for stenosis. There is severeregurgitation. TRICUSPID VALVE: Structurally normal valve. Mobility isunrestricted. There is no evidence for stenosis. There is moderate regurgitation. PULMONIC VALVE: Not well visualized. The valve appears to be grosslynormal. There is no evidence for stenosis. There is mild regurgitation. PERICARDIUM: There is no pericardial effusion. AORTA: Aortic root: The root is not dilated. Aortic arch: The vessel is not dilated. INTRACARDIAC MASS THROMBUS: No apparent intracavitary masses or thrombi detected. Measurements Left ventricle Value Right ventricle Value GLS, 2D -4.0 % ANGELES, LAX 3.1 cm IVS, ED, LAX 2.6 cm ANGELES 3.1 cm ESD, LAX 5.0 cm TAPSE, 2D 1.5 cm ESD/bsa, LAX 2.3 cm/m^2 TAPSE, MM 1.5 cm FS, LAX 21 % S' lateral 13.6cm/sec FS, LAX chord 21 % ESD major ax, A4C 8.2 cm Left atrium Value ESD/bsa major ax, A4C 3.7 cm/m^2 AP dim, ES 4.9 cm ANGELES minor ax, A4C 8.2 cm AP dim index, ES 2.2cm/m^2 ANGELES/bsa minor ax, A4C 3.7 cm/m^2 Area ES, A4C 30cm^2 DONY, A4C 40.5 cm^2 SI dim, A2C 6.9 cm CAM, A4C 33.3 cm^2 Vol, ES, 1-p A4C 104 ml FAC, A4C 18 % Vol/bsa, ES, 1-p A4C 47ml/m^2 ANGELES major ax, A2C 8.8 cm Vol, ES, 1-p A2C 153 ml ANGELES/bsa major ax, A2C 3.9 cm/m^2 Vol/bsa, ES, 1-p A2C 69ml/m^2 DONY, A2C 36.9 cm^2 Vol, ES, 2-p 126 ml CAM, A2C 32.1 cm^2 Vol/bsa, ES, 2-p 56ml/m^2 FAC, A2C 13 % IVS, ED 0.9 cm Right atrium Value PW, ED 1.0 cm Area, ES, A4C 27cm^2 IVS/PW, ED 0.93 EDV 206 ml Aortic valve Value ESV 120 ml Mean v, S 155cm/sec EF 42 % VTI, S 40.1 cm SV 41 ml Mean grad, S 12 mmHg EDV/bsa 92 ml/m^2 LVOT/AV, VTI ratio 0.32 ESV/bsa 54 ml/m^2 MAGALYS, VTI 1.02cm^2 SV/bsa 18 ml/m^2 MAGALYS/bsa, VTI 0.46cm^2/m^2 EDV, 1-p A2C 130 ml ESV, 1-p A2C 31 ml Mitral valve Value EF, 1-p A2C 24 % Mean v, D 54.7cm/sec SV, 1-p A2C 86 ml VTI leaflet coapt 25.9 cm EDV/bsa, 1-p A2C 58 ml/m^2 MiV/LVOT VTI 2.0 ESV/bsa, 1-p A2C 14 ml/m^2 Mean grad, D 2 mmHg SV/bsa, 1-p A2C 38.6 ml/m^2 E-VTI 25.9 cm EDV, 1-p A4C 152 ml A-VTI 25.9 cm ESV, 1-p A4C 113 ml VTI E/A 1.0 EF, 1-p A4C 26 % MVA 1.58cm^2 SV, 1-p A4C 129 ml MVA/bsa 0.71cm^2/m^2 EDV/bsa, 1-p A4C 68 ml/m^2 MVA, LVOT cont 1.6cm^2 ESV/bsa, 1-p A4C 51 ml/m^2 MVA/bsa, LVOT cont 0.71cm^2/m^2 SV/bsa, 1-p A4C 58 ml/m^2 Manuela VTI 25.9 cm EDV, 2-p 141 ml Vena contracta width 3.1 cm ESV, 2-p 107 ml EF, 2-p 24 % Tricuspid valve Value SV, 2-p 34 ml TR vena contracta width 2.0 cm EDV/bsa, 2-p 63 ml/m^2 Peak RV-RA grad, S 33 mmHg ESV/bsa, 2-p 48 ml/m^2 SV/bsa, 2-p 19.1 ml/m^2 Aortic root Value EDV, MM Teich. 206 ml S-T junct diam, ED 2.6 cm EF, MM Teich. 42 % S-T junct diam/bsa, ED 1.2cm/m^2 EDV/bsa, MM Teich. 92 ml/m^2 EF, MM on 2D Teich. 42 % Ascending aorta Value AAo AP diam, S 3.5 cm LVOT Value AAo AP diam/bsa, S 1.6cm/m^2 Diam, S 2.0 cm Area 3.1 cm^2 Inferior vena cava Value Peak william, S 96.4 cm/sec Diam 2.6 cm VTI, S 13.0 cm Peak grad, S 4 mm Hg SV 41 ml SV/bsa 18 ml/m^2 Legend: (L) and (H) katy values outside specified reference range. [facility] are accredited with theIntersocietal Accreditation Commission - Echocardiography. Prepared and Electronically Authenticated Vito Lay MD Confirmed 06/21/2025 16:24 us Evelyn Brown NP US ORDERABLES Final Result INTERFACE SYSTEM Refer to clinic/hospital department * (ABNORMAL) IRON, TIBC, AND PERCENT SATURATION (06/19/2025 4:10 AM BUDGET CLERK) IRON 33(L) 37 - 145 ug/dL 06/19/2025 1:00 PM BUDGET CLERK [facility] TIBC 297 250 - 450 ug/dL 06/19/2025 1:00 PM BUDGET CLERK [facility] IRON % SATURATION 11(L) 15 - 60 % 06/19/2025 1:00 PM BUDGET CLERK [facility] Blood Venipuncture / Unknown 06/19/2025 4:10 AM BUDGET CLERK 06/19/2025 4:22 AM BUDGET CLERK Julia Munroe MD CHEMISTRY ORDERABLES Final Result Performing Organization Address [facility]/ZIP Co de Phone Number [facility] CLIA # [id number] [address] [place] [id number] * (ABNORMAL) FERRITIN (06/19/2025 4:10 AM BUDGET CLERK) Pathologist [facility] FERRITIN 188.0(H) 13.0 - 150.0 ng/mL 06/19/2025 12:55 PM BUDGET CLERK [facility] Blood Venipuncture / Unknown 06/19/2025 4:10 AM BUDGET CLERK 06/19/2025 4:22 AM BUDGET CLERK Julia Munroe MD CHEMISTRY ORDERABLES Final Result [facility] CLIA # [id number] [address] [address] * (ABNORMAL) COMPREHENSIVE METABOLIC PANEL (06/19/2025 12:45 AM BUDGET CLERK) Only the most recent of4 resultswithin the time period is included. SODIUM 134(L) 136 - 145 mmol/L 06/19/2025 1:29 AM [facility] POTASSIUM 4.9 3.5 - 5.1 mmol/L 06/19/2025 1:29 AM [facility] CHLORIDE 93(L) 98 - 107 mmol/L 06/19/2025 1:29 AM [facility] CO2 22 22 - 29 mmol/L 06/19/2025 1:29 AM [facility] CALCIUM 9.6 8.8 - 10.2 mg/dL 06/19/2025 1:29 AM [facility] BUN 69(H) 8 - 23 mg/dL 06/19/2025 1:29 AM [facility] CREATININE 3.44(H) 0.51 - 0.95 mg/dL 06/19/2025 1:29 AM [facility] Comment:The GFR result is no t clinically significant on patients <18 or >70 years of age. GLUCOSE 123(H) 74 - 99 mg/dL 06/19/2025 1:29 AM [facility] TOTAL PROTEIN 6.0(L) 6.4 - 8.3 g/dL 06/19/2025 1:29 AM [facility] ALBUMIN 3.9 3.5 - 5.2 g/dL 06/19/2025 1:29 AM [facility] BILIRUBIN TOTAL 0.9 0.0 - 1.0 mg/dL 06/19/2025 1:29 AM [facility] ALKALINE PHOSPHATASE 230(H) 35 - 104 U/L 06/19/2025 1:29 AM [facility] AST 48(H) 10 - 35 U/L 06/19/2025 1:29 AM [facility] ALT 32 <=35 U/L 06/19/2025 1:29 AM [facility] GFR 13 mL/min/1. 73 sq meter 06/19/2025 1:29 AM [facility] Comment:eGFR calculated with 2020 CKD-EPI equation. Vegetarian diet, extremely high or low muscle mass, and may affect results. Cystatin C with Glomerular Filtration Rate is a suitable alternative for these patients. ANION GAP 19 9 - 20 mmol/L 06/19/2025 1:29 AM BUDGET CLERK [facility] Blood Venipuncture / Unknown 06/19/2025 12:45 AM BUDGET CLERK 06/19/2025 12:50 AM BUDGET CLERK us Olena Villanueva MD CHEMISTRY ORDERABLES Final Result [facility] CLIA # [id number] [address] [address] [place] [address] * XR CHEST PA OR AP 1 VW (06/18/2025 9:48 PM BUDGET CLERK) Anatomical Region Laterality Modality Chest Computed Radiogr aphy 06/18/2025 9:48 PM BUDGET CLERK Impressions 06/19/2025 7:04 AM BUDGET CLERK Impression: The cardiac silhouette appears enlarged there is pulmonary vascular congestion and mild interstitial edema. No pulmonary consolidation, pleural effusion or pneumothorax is identified. Right central venous catheter. Narrative 06/19/2025 7:04 AM BUDGET CLERK Exam: XR CHEST PA OR AP 1 VW Date/Time of Exam: 06/18/2025 9:48 PM Reason For Exam: Hypoxia. Diagnosis: See Reason for Exam. Comparison: None. Procedure Note Tucker Armstrong MD - 06/19/2025 Exam: XR CHEST PA OR AP 1 VW Date/Time of Exam: 06/18/2025 9:48 PM Reason For Exam: Hypoxia. Diagnosis: See Reason for Exam. Comparison: None. Impression: The cardiac silhouette appears enlarged there is pulmonary vascular congestion and mild interstitial edema. No pulmonary consolidation, pleural effusion or pneumothorax is identified. Right central venous catheter. us Olena Villanueva MD DIAGNOSTIC IMAGING ORDERABL ES Final Result * HEMOGLOBIN A1C (06/08/2025) ABSTRACTED HGB A1C 4.9 % Blood 06/08/2025 us Abstract Provider CHEMISTRY ORDERABLES Final Res ult from Last 3 Months Insurance MEDICARE PART A AND B [facility] Advance Directives For more information, please contact: [phone] * Full Code (Latest Code Status on File) Date Activated Date Inactivated Comments 06/18/2025 9:24 PM 07/08/2025 4:52 PM Care Teams Banquet Attendant Relationship Specialty Start Date End Date Tip Manning DO PCP - General 08/16/07
--- OUTSIDE RECORDS SUMMARY | 2025-07-20 19:13 | XMS_ITS | Encounter Summary ---
Author Organization [facility] Address [address] [place] [address] Care Team Providers Care Shipping Clerk Name Role Phone Tip Manning DO Primary Care Provider Encounter Details Date Type Department Care Team (Latest Contact Info) Description 12/29/2005 Outpatient Historical [facility] Rheumatology- [facility] [address] [place] [id number] Rachel Desai MD [address] [place], [place] [id number] Generalized Osteoarthrosis, Involving Hand (Primary Dx) Social History Tobacco Use Types Packs/Day Years Used Date Smoking Tobacco: Never Assessed Comments Unknown Sex and Gender Information Value Date Recorded Sex Assigned at Not on file Legal Sex Female 4:01 AM [employer]K [employer] Gender Identity Not on file Sexual Orientation Not on file documented as of this encounter Plan of Treatment Not on file documented as of this encounter Visit Diagnoses Diagnosis Generalized osteoarthrosis, involving hand- Primary documented in this encounter Care Teams Shipping Clerk Relationship Specialty Start Date End Date Tip Manning DO [address] [place] [id number] PCP - General 08/16/07 documented as of this encounter
--- OUTSIDE RECORDS SUMMARY | 2025-07-20 19:13 | XMS_ITS | Data Portability ---
Author Organization SEVERO Kervin Grover [facility], [facility] Address [address] [facility] [address] [place] [address] Care Team Providers Care Mechanics Supervisor Name Role Phone CEE CANCINO Primary Care Provider [phone] Assessment Encounter Date Assessment Date Assessment LastModified by Organization Details LastModified Time 02/11/2025 02/11/2025 she will see cardiology in december [email or web address] Not available 02/11/2025 11:58:11 Plan of Treatment Reminders Order Date Submit Date Provider Last Modified By Organization Details Last Modified Time Details Appointments OFFICE VISIT MJ 2025 10:00A M Cee Cancino MD Not available Not available Not available Lab CBC 2024 025 [place] [facility], [address], [address], 02/04/2025 13:27:46 CMP, serum or plasma 2024 025 [facility], [address], [address], 02/04/2025 14:29:36 Referral None recorded. Procedures None recorded. Surgeries None recorded. Imaging XR, clavicle - bilateral [email or web address] ([facility]), [address] [place], [address], 02/11/2025 14:00:31 Medication Orders lidocaine 5 % topical patch 2024 025 [facility], [address] [place] [address], [address], 01/05/2025 12:56:25 zolpidem 5 mg tablet 2024 025 [facility], [address] [place] [address], [address], 01/05/2025 12:56:33 albuterol sulfate HFA 90 mcg/actua tion aerosol inhaler 2024 025 [facility], [address] [place] [address], [address], 01/05/2025 12:56:24 estradiol 0.01% (0.1 mg/gram) vaginal cream 2024 025 [facility], [address] [place] [address], [address], 01/05/2025 13:10:13 Advair Diskus 500 mcg-50 mcg/dose powder for inhalatio n 2024 025 [facility], [address] [place] [address], [address], 01/05/2025 12:56:24 Synthroid 150 mcg tablet 2024 025 [facility], [address] [place] [address], [address], 02/18/2025 18:23:47 gabapenti n 300 mg capsule 2024 025 [facility] [place], [address] [place] [address], [address], 07/16/2025 16:19:32 prednison e 20 mg tablet 2024 025 [facility] [place], [address] [place] [address], [address], 01/05/2025 12:48:48 azithromy wilfredo 250 mg tablet 2024 025 [facility] [place], [facility] [place], [address], 01/05/2025 12:48:47 Patient TargetsNo targets recorded. Patient InstructionsNo instructions recorded. Reason for Referral None Reported. Results Created Date Observation Date Name Description Value Unit Range Abnormal Flag Note LastModifiedBy Organization Detail LastModifiedTime 02/05/2002/04/2025 CBC WBC 12.4 x10 4.0-10 .5 high Not Available [facility] [address] [facility] 1, [place], [address], 02/04/2025 13:27:46 02/05/20 25 02/04/2025 CBC RBC 3.15 x10 3.50-5 .50 low Not Available [facility] [address] [facility] 1, [place], [address], 02/04/2025 13:27:46 02/05/20 25 02/04/2025 CBC HGB 10.5 g/dL 12.0-1 6.0 low Not Available [facility] [address] [facility] 1, [place], [address], 02/04/2025 13:27:46 02/05/20 25 02/04/2025 CBC HCT 33.6 % 37.0-4 7.0 low Not Available [facility] [address] [facility] 1, [place], [address], 02/04/2025 13:27:46 02/05/20 25 02/04/2025 CBC MCV 106.6 fL 80.0-9 9.9 high Not Available [facility] [address] [facility], [place], [address], 02/04/2025 13:27:46 02/05/20 25 02/04/2025 CBC MCH 33.2 pg 27.0-3 2.0 high Not Available [facility] [address] [facility] 1, [place], [address], 02/04/2025 13:27:46 02/05/20 25 02/04/2025 CBC MCHC 31.2 g/dL 32.0-3 6.0 low Not Available [facility] [address] [facility], [place], [address], 02/04/2025 13:27:46 02/05/20 25 02/04/2025 CBC RDW 17.1 % 11.5-1 4.5 high Not Available [facility] [address] [facility], [place], [address], 02/04/2025 13:27:46 02/05/20 25 02/04/2025 CBC plt 407.2 x10 140.0- 451.0 Not Available [facility] [address] [place] [facility] 1, [place], [address], 02/04/2025 13:27:46 02/05/20 25 02/04/2025 CBC lymphocytes % 12.9 % 20.0-5 0.0 low Not Available [facility] [address] [place] [facility], [place], [address], 02/04/2025 13:27:46 02/05/2002/04/2025 CBC granulcytes % 75.3 % 30.0-7 0.0 high Not Available [facility] [address] [place] [facility] 1, [place], [address], 02/04/2025 13:27:46 02/05/20 25 02/04/2025 CBC monocytes % 8.7 % 2.0-16 .0 Not Available [facility]05 [facility], [place], [address], 02/04/2025 13:27:46 02/05/20 25 02/04/2025 CBC granulcytes# 9.3 x10 Not Khushi ilable [facility] [address] [facility] 1, [place], [address], 02/04/2025 13:27:46 02/05/20 25 02/04/2025 CBC lymphocytes # 1.6 x10 Not Available [facility] [address] [facility] 1, [place], [address], 02/04/2025 13:27:46 02/05/20 25 02/04/2025 CBC monocytes # 1.1 x10 Not Avai lable [facility] [address] [address], [place], [address], 02/04/2025 13:27:46 02/05/20 25 02/04/2025 CMP (FEMA LE) glucose 99.0 mg/dL 60.0-9 9.0 Not Available [facility] [address] [address], [place], [address], 02/04/2025 14:29:36 02/05/20 25 02/04/2025 CMP (FEMA LE) BUN (blood urea nitrogen) 46.0 mg/dL 10.0-2 6.0 high Not Available [facility] [address] [facility], [place], [address], 02/04/2025 14:29:36 02/05/20 25 02/04/2025 CMP (FEMA LE) creatinine (serum) 1.4 mg/dL 0.4-1. 5 Not Available [facility] [address] [address], [place], [address], 02/04/2025 14:29:36 02/05/20 25 02/04/2025 CMP (FEMA LE) BUN/creatini ne ratio 32.86 ratio Not Available [facility] [address] [facility], [place], [address], 02/04/2025 14:29:36 02/05/20 25 02/04/2025 CMP (FEMA LE) eGFR calculated 38.8 Not Available [facility] [address] [facility], [place], [address], 02/04/2025 14:29:36 02/05/20 25 02/04/2025 CMP (FEMA LE) total protein 7.0 g/dL 6.0-8. 5 Not Available [facility] [address] [facility], [place], [address], 02/04/2025 14:29:36 02/05/20 25 02/04/2025 CMP (FEMA LE) total bilirubin 0.5 mg/dL 0.2-1. 3 Not Available [facility] [address] [facility], [place], [address], 02/04/2025 14:29:36 02/05/20 25 02/04/2025 CMP (FEMA LE) albumin 4.3 g/dL 3.5-5. 5 Not Available [facility] [address] [facility], [place], [address], 02/04/2025 14:29:36 02/05/20 25 02/04/2025 CMP (FEMA LE) globulin 2.7 calc Not Available [facility] [address] [facility], [place], [address], 02/04/2025 14:29:36 02/05/20 25 02/04/2025 CMP (FEMA LE) AST (SGOT) 33.0 U/L 0.0-46 .0 Not Available [facility] [address] [facility], [place], [address], 02/04/2025 14:29:36 02/05/20 25 02/04/2025 CMP (FEMA LE) altv (SGPT) 12.0 U/L 13.0-6 9.0 abnormal Not Available [facility] [address] [facility], [place], [address], 02/04/2025 14:29:36 02/05/20 25 02/04/2025 CMP (FEMA LE) A/G ratio 1.6 ratio Not Available [facility] [address] [facility] 1, [place], [address], 02/04/2025 14:29:36 02/05/20 25 02/04/2025 CMP (FEMA LE) ALP phos 82.0 U/L 30.0-1 40.0 normal Not Available [facility] [address] [place] [facility], [place], [address], 02/04/2025 14:29:36 02/05/20 25 02/04/2025 CMP (FEMA LE) calcium 10.2 mg/dL 8.4-10 .5 Not Available [facility] [address] [facility] 1, [place], [address], 02/04/2025 14:29:36 02/05/20 25 02/04/2025 CMP (FEMA LE) sodium 142.0 mmol/ L 136.0- 145.0 Not Available [facility] [address] [facility] 1, [place], [address], 02/04/2025 14:29:36 02/05/20 25 02/04/2025 CMP (FEMA LE) potassium 4.5 mmol/ L 3.5-5. 1 Not Available [facility] [address] [facility] 1, [place], [address], 02/04/2025 14:29:36 02/05/20 25 02/04/2025 CMP (FEMA LE) chloride 109.0 mmol/ L 98.0-1 10.0 normal Not Available [facility] [address] [facility] 1, [place], [address], 02/04/2025 14:29:36 02/05/20 25 02/04/2025 CMP (FEMA LE) C02 21.0 mmol/ L 22.0-3 1.0 low Not Available [facility] [address] [facility] 1, [place], [address], 02/04/2025 14:29:36 02/05/20 25 02/04/2025 CMP (FEMA LE) anion gap 12.0 calc Not Available [facility] [address] [facility] 1, [place], [address], 02/04/2025 14:29:36 02/05/20 25 02/04/2025 CMP (FEMA LE) osmolality 304.3 calc Not Available [facility] [address] [facility] 1, [place], [address], 02/04/2025 14:29:36 02/05/20 25 02/05/2025 PERIP HERAL BLOOD SMEAR REVIE W peripheral blood smear review Macro cytos is 2 + Polyc hroma neftali 1 + Howel l-Jol ly dav s 1 + Poiki locyt osis 1 + Revie w of the perip heral smear revea ls incre ased numbe rs of plate lets. Revie w of perip heral smear confi yusef autom ated resul ts. Not Available [facility] [address] [address], [place], [address], 02/05/2025 14:47:57 02/05/20 25 02/12/2025 PROTE IN, TOTAL AND PROTE IN ELECT ROPHO RESIS WITH IMMUN OFIXA TION protein, total 6.2 g/dL 6.1-8. 1 normal Not Available [facility] [address] [address] [place], [address], 02/12/2025 17:17:16 02/05/2002/12/2025 PROTE IN, TOTAL AND PROTE IN ELECT ROPHO RESIS WITH IMMUN OFIXA TION ava interpretati on Flaquita rao rn. No monoc lonal prote ins detec jared. Not Available [facility] [address] [address] [place], [address], 02/12/2025 17:17:16 02/05/20 25 02/12/2025 PROTE IN, TOTAL AND PROTE IN ELECT ROPHO RESIS WITH IMMUN OFIXA TION albumin 3.5 g/dL 3.8-4. 8 low Not Available [address] [address] [place], [address], 02/12/2025 17:17:16 02/05/20 25 02/12/2025 PROTE IN, TOTAL AND PROTE IN ELECT ROPHO RESIS WITH IMMUN OFIXA TION alpha 1 globulin 0.5 g/dL 0.2-0. 3 high Not Available [facility] [address] [address] [place], [address], 02/12/2025 17:17:16 02/05/20 25 02/12/2025 PROTE IN, TOTAL AND PROTE IN ELECT ROPHO RESIS WITH IMMUN OFIXA TION alpha 2 globulin 1.0 g/dL 0.5-0. 9 high Not Available [facility] [address] [address] [place], [address], 02/12/2025 17:17:16 02/05/20 25 02/12/2025 PROTE IN, TOTAL AND PROTE IN ELECT ROPHO RESIS WITH IMMUN OFIXA TION beta 1 globulin 0.4 g/dL 0.4-0. 6 normal Not Available [facility] [address] [address] [place], [address], 02/12/2025 17:17:16 02/05/20 25 02/12/2025 PROTE IN, TOTAL AND PROTE IN ELECT ROPHO RESIS WITH IMMUN OFIXA TION beta 2 globulin 0.4 g/dL 0.2-0. 5 normal Not Available [facility] [address], [address], 02/12/2025 17:17:16 02/05/20 25 02/12/2025 PROTE IN, TOTAL AND PROTE IN ELECT ROPHO RESIS WITH IMMUN OFIXA TION gamma globulin 0.4 g/dL 0.8-1. 7 low Not Available [facility] [address], [address], 02/12/2025 17:17:16 02/05/2002/12/2025 PROTE IN, TOTAL AND PROTE IN ELECT ROPHO RESIS WITH IMMUN OFIXA TION abnormal protein band 1 0.1 g/dL none detect ed high Not Available [address], [address], 02/12/2025 17:17:16 02/05/2002/12/2025 PROTE IN, TOTAL AND PROTE IN ELECT ROPHO RESIS WITH IMMUN OFIXA TION interpretati on Poorl y defin ed band (poss ible M-spi ke) migra ting in the gamma regio n. Consi river serum immun ofixa tion to rule out a monoc lonal prote in if clini princess indic ated. Not Available [address] [place], [address], 02/12/2025 17:17:16 02/05/2002/12/2025 LD LD 249 U/L 120-25 0 normal Not Available [address], [address], 02/12/2025 17:17:17 02/05/2002/12/2025 URIC ACID uric acid 5.7 mg/dL 2.5-7. 0 normal Thera petaz c preethige t for gout patie nts: <6.0 mg/dL Not Available [facility] [address] [place], [address], 02/12/2025 17:17:17 02/05/20 25 02/12/2025 KAPPA /DE JESUS DA LIGHT CHAIN , FREE W/RAT IO,RA ND URINE kappa light chain, free, urine 2.91 mg/L <=32.9 0 Not Available [address], [address], 02/12/2025 17:17:18 02/05/20 25 02/12/2025 KAPPA /DE JESUS DA LIGHT CHAIN , FREE W/RAT IO,RA ND URINE lambda light chain, free, urine 1.61 mg/L <=3.79 Not Available [address], [address], 02/12/2025 17:17:18 02/05/20 25 02/12/2025 KAPPA /DE [...] s may be reque sted. Not Available [address], [address], 02/12/2025 17:17:18 02/05/2002/12/2025 IMMUN OFIXA TION, URINE ava interpretati on Flaquita rao rn. No monoc lonal prote ins detec jared. Not Available [address], [address], 02/12/2025 17:17:18 02/05/20 25 02/12/2025 KAPPA /DE JESUS DA LIGHT CHAIN S FREE WITH RATIO , SERUM kappa light chain, free, serum 21.9 mg/L 3.3-19 .4 high Not Available [address], [address], 02/12/2025 17:17:19 02/05/20 25 02/12/2025 KAPPA /DE JESUS DA LIGHT CHAIN S FREE WITH RATIO , SERUM lambda light chain, free, serum 1292.4 mg/L 5.7-26 .3 high Not Available [address] [address] [place], [address], 02/12/2025 17:17:19 02/05/20 25 02/12/2025 KAPPA /DE [...] py of these disor ders. Not Available [address] [address] [place], [address], 02/12/2025 17:17:19 02/05/20 25 02/12/2025 PROTE IN, TOTAL AND PROTE IN ELECT ROJELIO COHN M URINE creatinine, random urine 33 mg/dL 20-275 normal Not Available [facility] [address] [address] [place], [address], 02/12/2025 17:17:20 02/05/20 25 02/12/2025 PROTE IN, TOTAL AND PROTE IN ELECT ROJELIO COHN M URINE protein/crea tinine ratio 152 mg/g_ creat 24-184 normal Not Available [facility] [address], [address], 02/12/2025 17:17:20 02/05/20 25 02/12/2025 PROTE IN, TOTAL AND PROTE IN ROJELIO ONOFRE URINE protein/crea tinine ratio 0.152 mg/mg _crea t 0.024- 0.184 normal Not Available [address], [address], 02/12/2025 17:17:20 02/05/20 25 02/12/2025 PROTE IN, TOTAL AND PROTE IN [facility] ROJELIO COHN URINE protein, total, random ur 5 mg/dL 5-24 normal Not Available [address], [address], 02/12/2025 17:17:20 02/05/20 25 02/12/2025 PROTE IN, TOTAL AND PROTE IN [facility] ROJELIO COHN URINE albumin 100 % Not Available [address], [address], 02/12/2025 17:17:20 02/05/20 25 02/12/2025 PROTE IN, TOTAL AND PROTE IN [facility] ROJELIO COHN URINE ispvp-[id number] ulins 0 % Not Available [facility] [address], [address], 02/12/2025 17:17:20 02/05/20 25 02/12/2025 PROTE IN, TOTAL AND PROTE IN [facility] ROJELIO COHN URINE trhgu-2-vrdo ulins 0 % Not Available [facility] [address], [address], 02/12/2025 17:17:20 02/05/20 25 02/12/2025 PROTE IN, TOTAL AND PROTE IN [facility] ROPHO RESIS , RANDO M URINE beta globulins 0 % Not Available [facility] [address] [address] [address], [place], [address], 02/12/2025 17:17:20 02/05/20 25 02/12/2025 PROTE IN, TOTAL AND PROTE IN ELECT ROPHO RESIS , JERRICAO M URINE gamma globulins 0 % Not Available [facility] [address] [address] [place], [address], 02/12/2025 17:17:20 02/05/20 25 02/12/2025 PROTE IN, TOTAL AND PROTE IN [facility] JERRICAO M URINE interpretati on Agaro se [facility] resis of urine revea ls album in. No abnor mal prote in is obser holley. Not Available [facility] [address] [address] [address], [place], [address], 02/12/2025 17:17:20 10/24/19 25 10/20/2024 home sleep study No observ ation record ed. [address] [facility] [address] [facility], [place], [address], 10/27/2024 13:03:08 02/16/20 25 02/11/2025 XR, clavi yonas No observ ation record ed. [address] [place], [address], 02/16/2025 10:52:56 02/16/20 25 02/11/2025 XR, clavi yonas No observ ation record ed. [address] [place], [address], 02/16/2025 10:52:56 Result Notes None recorded. Problems Name Problem SNOMED Code Status Onset Date Resolution Date Notes Provider Name and Address Organization Details Recorded Time Neuropathy 765636456 Active 2022 CARLOS byrd [place] - [facility], [facility] 3 14:37:53 Hypothyroidis m 71659876 Active 2022 AIRAM DOWNING null, [facility] 5 09:10:07 Seasonal allergy 360372698 Active 2022 CARLOS LOUIE null, [facility] 3 14:39:17 Essential hypertension 32807723 Active 2022 AIRAM DOWNING null, [facility] 5 09:10:03 Persistent insomnia 452562555 Active 2022 CARLOS LOUIE null, [facility] 3 14:40:36 Insomnia 889173417 Active 2022 AIRAM DOWNING null, [facility] 5 09:10:11 Multiple myeloma in remission 56649073 Active 2022 CARLOS LOUIE null, [facility] 3 08:52:14 Parkinson's disease 91468719 Active 2022 AIRAM DOWNING null, [facility] 5 09:55:39 Chronic kidney disease stage 4 413741642 Active 2022 CARLOS LOUIE null, [facility] 3 08:52:36 Chronic systolic heart failure 556613738 Active 2022 AIRAM DOWNING null, [facility] 5 09:09:59 Moderate persistent asthma 425543260 Active 2023 AIRAM DOWNING null, [facility] 5 09:10:16 Neck pain 48591137 Active 2023 CARLOS LOUIE null, [facility] 4 08:37:48 Rheumatoid arthritis 67792126 Active 2024 AIRAM byrd [facility] 5 09:10:57 Anemia 743422344 Active 2024 AIRAM byrd [facility] 5 09:11:09 Chronic kidney disease 102359385 Active 2024 AIRAM byrd [facility] 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 5 10:35:16 Obstructive sleep apnea syndrome 03542367 Active 2024 AIRAM byrd [facility] 5 13:08:46 Exacerbation of moderate persistent asthma 908139341 Active 2024 Vazquez Hightower MD [address] [place] [address], [phone] , [facility] 5 12:04:14 Cardiomyopath y 86270385 Active 2024 Cee Cancino MD [address] [place] [address], [phone] , [facility] 5 12:51:20 Renal mass 623296882 Active 2024 AIRAM byrd [facility] 5 16:47:21 Notes:Some problems listed i n Documents: #[id number], #[id number] could not be added to this patient's chart. Please review these documents and add these problems to the patient's chart manually as needed. Problem Notes None recorded. Procedures Surgical History Date Name Laterality Status Provider Name and Address Organization Details Recorded Time 10/24/19 25 decompression of ulnar nerve completed , [facility] 01/05/2025 12:12:25 08/06/19 21 lumbar spinal fusion completed , [facility] 08/14/2024 10:31:49 left oophorectomy completed [facility], [facility] 08/14/2024 09:15:09 reverse prosthetic total arthroplasty of shoulder completed , [facility] 08/14/2024 10:30:35 arthroscopy of left knee joint completed , [facility] 08/14/2024 10:30:56 extraction of cataract completed [facility], [facility] 08/14/2024 09:16:39 excision of ganglion cyst completed [facility], [facility] 08/14/2024 09:16:53 tonsillectomy completed , GustavoCDutch 08/14/2024 10:28:45 hysterectomy completed , GustavoCDutch 08/14/2024 10:29:01 oophorectomy completed , LSunni 08/14/2024 10:29:23 procedure on foot completed , GustavoCDutch 08/14/2024 10:30:11 extraction of cataract completed , [facility]al 08/14/2024 10:31:18 Carpal Tunnel Surgery completed Ashlee Stark [facility], LSunni 02/11/2025 11:31:31 Imaging Results None recorded. Procedure Notes None recorded. Medical Equipment None Reported. Allergies Allergen ID Allergen Name Allergen Category Reaction Reaction Severity Criticality Documentation Date Start Date Code Code System Note Provider Name and Address Organization Details Recorded Time 5188 Coreg medicatio n Not available Not available Not available 02/12/2023 67171 1 RxNorm CARLOS LOUIE [facility] 3 14:05:48 07261 Betadine medicatio n other moderate low 03/03/2023 67750 0 RxNorm React ion: blist ers Dorothydahiana [facility] 4 10:01:16 96900 diltiazem Not available dyspnea severe high 03/03/2023 3443 RxNorm Dorothy [facility] 4 10:01:25 15351 verapamil hydrochlo ride medicatio n headache moderate low 03/03/202316505 8 RxNorm Dorothy [facility] 4 10:01:31 75411 Inderal medicatio n Not available Not available Not available 02/11/2025 79518 0 RxNorm Ashlee Stark [facility] 5 11:27:06 60946 bacitraci n / polymyxin B medicatio n rash Not available low 07/14/20252017 78025 5 RxNorm Not Available [facility]ula - External Data Service - prod 5 11:05:15 14373 propranol ol medicatio n Not available Not available Not available 07/14/20252017 8787 RxNorm depre ssion unrec ogniz ed react ion (text : Alter s Mood, code: [id number]) (from exter [facility] e) Not Available [facility] - External Data Service - prod 5 11:05:15 72122 2-octyl cyanoacry late medicatio n Not available Not available Not available 07/14/20252024 14708 37 RxNorm Not Available [facility] - External Data Service - prod 5 11:05:18 73313 povidone- iodine medicatio n Not available Not available Not available 07/14/20252024 8611 RxNorm Not Available [facility] External Data Service - [facility] 5 11:05:18 06898 zolpidem medicatio n Not available Not available Not available 07/14/20252024 51359 RxNorm Not Available [facility] - External Data Service - [facility] 5 11:05:18 07531 carvedilo l medicatio n dyspnea Not available [facility] 07/14/20252021 36621 RxNorm Not Available [facility] P[employer] Card Data Service - [facility] 5 11:05:19 52944 diltiazem Not available dyspnea Not available [facility] 07/14/20252023 3443 RxNorm Not Available [facility] [employer] Data Service - [facility] 5 11:05:19 Medications Name Sig Start Date Stop Date [...] ne 5 mg-acetam inophen 325 mg tablet Take 1 tablet every 6 hours by oral route, for as needed for back pain. 2024 active Not Available Not Available Not Avai lable Synthroid 150 mcg tablet Take 1 tablet [...] Avai lable gabapenti n 300 mg capsule take 1 capsule BY MOUTH EVERY DAY AT BEDTIME active Not Available Not Available No t Available Astelin 137 mcg (0.1 %) nasal spray at bedtime 2018 active Not Available Not Available Not Avalejandra labrenay [facility] [facility] 10 mg tablet TAKE 1 TABLET AT BEDTIME 2024 active Not Available Not Available Not Avai lable mupirocin 2 % topical ointment active Not Available Not Available Not Available zolpidem 5 mg tablet Take 1 tablet every day by oral route. 2024 active Not Available Not Available Not Avalejandra labrenay estradiol 0.01% (0.1 mg/gram) vaginal cream initiati on dosage:0 .5 grams applied intra-va ginally daily for two weeks then 0.5 grams applied intra-va ginally on Sunday, y and Sunday each week. 2024 active Not Available Not Available Not Avalejandra labrenay zolpidem 10 mg tablet TAKE ONE TABLET BY MOUTH AT BEDTIME 02/12 completed Not Available Not Available Not Available albuterol sulfate HFA 90 mcg/actua tion aerosol inhaler USE 2 INHALATI ONS FOUR TIMES A DAY NEEDED 2024 active Not Available Not Available Not Naya labrenay ketoconaz ole 2 % topical cream 08/14 [...] -levodopa three times daily 08/13 completed cs/smf; 85225; Recorded 06/26/20 22 11:58AM by Kourtney Louie RN (Authori paul through Liborio Iyer DO), Refill Request; Mail [...] mass index (BMI) Body weight Oxygen saturation Heart rate Respiratory rate Body temperature Systolic And Diastolic Provider Name and Address Organization Details Last Updated DateTime 5 154.94 cm 47.2 kg/m2 850810. 09 g 94 % 74 /min 16 /min 98.2 [degF] 148/90 mm[Hg] Liz Syed [facility] 5 11:58:38 Date Recorded Body height Body mass index (BMI) Body weight Body temperature Heart rate Oxygen saturation Systolic And Diastolic Provider Name and Address Organization Details Last Updated DateTime 5 154.94 cm 47 kg/m2 551289. 5 g 97.4 [degF] 69 /min 97 % 128/74 mm[Hg] Holly Musa [facility] 5 12:18:36 Date Recorded Body height Body mass index (BMI) Body weight Oxygen saturation Heart rate Respiratory rate Body temperature Systolic And Diastolic Provider Name and Address Organization Details Last Updated DateTime 5 154.94 cm 43.6 kg/m2 735782. 84 g 97 % 80 /min 20 /min 97.4 [degF] 118/60 mm[Hg] Ashlee Lincoln [facility] 5 11:25:25 Date Recorded Body height Body mass index (BMI) Body weight Oxygen saturation Heart rate Respiratory rate Body temperature Systolic And Diastolic Provider Name and Address Organization Details Last Updated DateTime 5 154.94 cm 48.7 kg/m2 433230. 83 g 98 % 69 /min 19 /min 97.4 [degF] 110/69 mm[Hg] AIRAM DOWNING [facility] 5 11:01:34 Social History Question Answer Notes LastModified by WiSpry Details LastModified Time Tobacco Smoking Status Never Smoker [facility] 02/12/2023 14:10:05 Are You Blind Or Do You Have Difficulty Seeing? No [email or web address] Information not available 02/12/2023 Are You Deaf Or Do You Have Serious Difficulty Hearing? No [email or web address] Information not available 02/12/2023 What Was The Date Of Your Most Recent Tobacco Screening? 02/11/2025 [email or web address] Information not available 02/11/2025 Have You Recently Traveled Abroad? No Information not available 02/12/2023 Do You Have Difficulty Walking Or Climbing Stairs? No [email or web address] Information not available 02/12/2023 Sex: Unknown Functional Status Question Answer Note LastModified by WiSp[employer] Details LastModified Time Do you or have you ever used any other forms of tobacco or nicotine? No [email or web address] Information not available 07/14/2025 Are you able to walk independently without assistance or assistive devices? YESWOREST [email or web address] Information not available 02/12/2023 Do you have difficulty doing errands alone? No Information not available 02/12/2023 Are you able to care for yourself independently? Yes Information not available 02/12/2023 Do you have difficulty dressing, bathing, grooming, or toileting? No Information not available 02/12/2023 Do you or have you ever used any nicotine-free cigarettes, vape, or chewing tobacco? No [email or web address] Information not available 07/14/2025 Mental Status Question Answer Note LastModified by Organization D etails LastModified Time Do you have difficulty concentrating, remembering or making decisions? No [email or web address] Information no t available 02/12/2023 Family History Relationship Description Onset Age of this Age Resolved Age Notes LastModified by Organization Details LastModified Time Father Myocardial infarction [email or web address] Not available 04/2025 09:13:56 Father Hypertensive disorder Not available 08/14 09:14:09 Father Malignant neoplasm of urinary bladder [email or web address] Not available 2024 10:25:31 Father Cerebrovascu lar accident [email or web address] Not available 04/2025 10:25:50 Father Arthritis Not available 08/14/2024 10:26:32 Father Neuropathy Not availabl e 08/14/2024 10:26:41 Mother Hypertensive disorder [email or web address] Not available 08/14 09:14:09 Mother Congestive heart failure [email or web address] Not available 2024 10:26:03 Mother Malignant neoplasm of breast [email or web address] Not available 2024 10:26:16 Medical History No medical history recorded. Gynecological HistoryNo gynecological history recorded. Obstetrics History GPAL:G 0 P 0 0 0 0 Immunizations Vaccine Type Date Status Note Provider Nam e and Address Organization Details Recorded Time pneumococcal polysaccharide PPV23 5 completed Not Available [facility] 03/03/2023 02:37:11 Influenza, split virus, trivalent, preservative 5 completed Not Available [facility] 03/03/2023 02:37:11 pneumococcal polysaccharide PPV23 8 completed Not Available [facility] 03/03/2023 02:37:11 Influenza, split virus, trivalent, preservative 8 completed Not Available [facility] 03/03/2023 02:37:11 Influenza, split virus, trivalent, preservative 7 completed Not Available [facility] 03/03/2023 02:37:12 zoster recombinant 0 [facility] 04/11/2024 10:01:07 Influenza, high-dose, quadrivalent, PF 1 completed [facility] 04/11/2024 10:01:07 COVID-19, mRNA, LNP-S, PF, 100 mcg/0.5mL dose or 50 mcg/0.25mL dose 1 completed Dorothy [facility] 04/11/2024 10:01:07 COVID-19, mRNA, LNP-S, PF, 100 mcg/0.5mL dose or 50 mcg/0.25mL dose 1 completed [facility] 04/11/2024 10:01:07 COVID-19, mRNA, LNP-S, PF, 100 mcg/0.5mL dose or 50 mcg/0.25mL dose 0 completed [facility] 04/11/2024 10:01:07 Influenza, high-dose, trivalent, PF 0 completed [facility] 04/11/2024 10:01:07 Influenza, split virus, quadrivalent, PF 2 completed [facility] 04/11/2024 10:01:07 Influenza, high-dose, quadrivalent, PF 3 completed Not Available [facility] 07/14/2025 10:09:45 Pneumococcal conjugate PCV20, polysaccharide [id number] conjugate, adjuvant, PF 3 completed Not Available [facility] 07/14/2025 10:09:45 Influenza, high-dose, trivalent, PF 4 completed Not Available [facility] 07/14/2025 10:09:45 Past Encounters Encounter ID Performer Location Encounter Start Date Encounter Closed Date Diagnosis/Indication Diagnosis SNOMED-CT Code Diagnosis ICD10 Code Diagnosis IMO Codes Diagnosis Note [id number] MERISSA HERNANDEZ [facility] ([facility]) [address] [place] [address] [id number] 5 02/07/2023 14:32:38 02/19/2023 16:41:28 Pain of left eye 6398789823 82673 H57.12 Due to pain in left eye with all eye movements and distant and peripheral vision changes, patient referred to ophthalmDr. Ludwig sauceda. Consulted with doctor community association manager and he agrees patient should be evaluated by Dr. Munroe to rule out acute occular pressure issues. Discussed with patient that if normal exam by ophthalmnaina davis, will consider oral antibiotic s for periorbita l cellulitis and sinusitis. Patient agrees to plan of care. Will follow up pending on exam with ophthalmnaina davis today. Visual disturbance 25744 001 H53.9 [id number] Liborio Iyer DO [facility] ([facility]) [address] [place] [address] [id number] 5 02/12/2023 13:57:17 02/12/2023 17:26:16 Hypothyroidism 75581265 E03.9 Insomnia 185200126 G47.0 0 Essential hypertension 23479926 I10 Multiple m yeloma in remission 79662957 C90.01 Parkinson's disease 4904 9000 G20 Chronic ki dney disease stage 4 308201660 N18.4 Neuropathy 730790752 G62 .9 Spasm of back muscles 20 2391181 M62.830 Episcleritis 523458 H15 .098 [id number] Liborio Iyer DO [facility] ([facility]) [address] [place] [address] [id number] 5 03/05/2023 14:25:35 03/05/2023 20:04:08 Poor balance 983924148 R27.8 Lesion of skin of face 5751196370 06 L98.9 [id number] Liborio Iyer DO [facility] ([facility]) [address] [place] [address] [id number] 5 04/11/2023 10:08:11 04/11/2023 18:25:42 Low back pain 550827912 M54.50 Chronic sy stolic heart failure 928704550 I50.22 Chest pain 44553242 R07. [address] Martina pulido Chronic ki dney disease stage 4 146411601 N18.4 [id number] PACO WAN [facility] ([facility]) [address] [place], [place] [phone] 5 04/29/2023 14:29:31 04/29/2023 17:08:30 Cough 02226855 R05.9 Exacerbati on of moderate persistent asthma 675217341 J45.41 [id number] Liborio Iyer DO [facility]) [address] [place] [address] [id number] 5 08/13/2023 10:58:29 08/13/2023 11:47:21 Hypothyroidism 59211857 E03.9 Insomnia 605107002 G47.0 0 Numbness of hand 5406796 04 R20.0 Hyperglycemia 42557216 R 73.9 Bradycardia 52736894 R00 .1 [id number] Liborio Iyer DO [facility] ([facility]) [address] [place] [address] [id number] 5 02/11/2024 11:20:21 02/11/2024 11:51:18 Persistent insomnia 476213876 G47.09 Chronic ki dney disease stage 4 107404752 N18.4 Chronic sy stolic heart failure 006100005 I50.22 Moderate p ersistent asthma 029900110 J45.40 Bilateral cramp of muscle of lower limbs 7649416548 3355953 R25.2 [id number] Liborio Iyer [facility] ([facility]) [address] [place] [address] [id number] 5 04/09/2024 10:04:48 04/09/2024 10:27:50 Low back pain 127272595 M54.51 Weakness o f right lower limb 4936934547 74144 M62.81 Spasm of back muscles 20 8281908 M62.868 [id number] Cee Cancino MD [facility] ([facility]) [address] [place] [address] [id number] 5 08/14/2024 09:42:18 08/14/2024 11:49:48 Anemia 839034649 D64.9 Chronic sy stolic heart failure 872144357 I50.22 Essential hypertension 51979060 I10 Hypothyroidism 76321268 E03.9 Insomnia 371438927 G47.0 0 Rheumatoid arthritis 698 88462 M06.9 Parkinson's disease 4904 9000 G20.C Multiple m yeloma in remission 29633543 C90.01 Chronic ki dney disease 298477796 I13.0 Plasma louis l dyscrasia with polyneuropathy 55885855 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 she should continue apap therapy indefinite ly. her machine is 20 years old not auto-titra ting and needs to be updated. Depressive disorder 3548 9007 F32.A [id number] Vazquez Hightower MD [facility] ([facility]) [address] [place] [address] [id number] 5 09/18/2024 11:50:32 09/25/2024 07:36:47 Exacerbation of moderate persistent asthma 101933092 J45.41 Concerned about exacerbati on of her asthma. Start steroids and antibiotic s. Continue current inhalers. Discussed follow-up with PCP to discuss asthma treatment. [id number] Cee Cancino MD [facility] ([facility]) [address] [place] [address] [phone] 5 01/05/2025 11:59:05 01/05/2025 15:18:05 Neuropathy 149696326 G62.9 Chronic ob structive pulmonary disease 39135725 J44.9 Hypothyroidism 33660182 E03.9 Moderate p ersistent asthma 024896110 J45.40 Insomnia 477478737 G47.0 0 Chronic sy stolic heart failure 709576821 I50.22 Cardiomyopathy 59064759 I42.8 [id number] has started entresto Obstructiv e sleep apnea syndrome 08585471 G47.33 [id number] she is benefittin g from cpap greatly and is compliant with use. daily eventsshe should continue it indefinite ly for improving daytime sleepiness and chf. her event rates with tx are consistent ly less than 5 per hour. 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 4304432 [id number] Cee Cancino MD [facility] ([facility]) [address] [place] [address] [id number] 5 02/11/2025 11:11:38 02/11/2025 13:52:12 Essential hypertension 72884489 I10 Neuropathy 070170085 G62 .9 Finding of clavicle structure 891826122 M95.8 [id number] Health Concerns Section Related Observation LastModified by Organization Detai ls LastModified Time None Recorded Concern Status LastModified by Organization Details LastModified Time None Recorded Advance Directives Directive None Recorded Payers Insurance Date Sequence Insurance Name Policy Number Policy Walsh Covered Member ID Walsh Member ID Guarantor Name 09/06/2023 2 UNSPECIFIED REMIT PAYOR Maryjo Eason Leah 07/14/2025 2 FOR LIFE ( - MEDICARE SUPPLEMENT) Maryjo Eason Leah [id number] Maryjo Eason Leah 07/14/2025 [place] - [facility] (MEDICARE) Maryjo Eason Leah [id number] Maryjo Eason Leah 07/14/2025 1 [place]ICARE B[place]: [place] Maryjo Eason Leah [id number] Maryjo Eason Leah Notes Date Note Type Note Provider Name and Address Organization Details Recorded Time 09/18/19 25 text/htm l AsthmaReported by PatientROS as noted in the HPI walk in patientpatient is here today for cough, wheezing and shortness of breath that started yesterday patient is still taking her albuterol inhaler and prednisone for her asthma but it is not helping. Patient said that she was sick a week and a half ago then yesterday she started coughing and wheezing Vazquez Hightower MD [address] [place], [phone], [facility] 09/24/2024 10:43:08 01/06/20 25 text/htm l Obstructive Sleep ApneaReported by PatientHPIFor associated symptoms, patient reportsdaytime sleepinessbut reportsno morning headacheandno suddenly falling asleep during the day. For duration, patient [id number]. For alleviating factors, patient reportspositive airway pressure devices(pt uses her c-pap every night and is compliant with and benefitting from its use.).ROS as noted in the HPI Cee Cancino MD [address] [place] [address], [phone], [facility] 01/05/2025 13:13:47 02/12/20 25 text/htm l Hypertension F/UReported by PatientHPIFor medications, patient reportstaking medications as directedandchecks blood pressure at home, range:(she has lows on her b/p that concern her). HypothyroidReported by Patient 6 month f/u labs done last week her myeloma labs are pending Cee Cancino MD [address] [place] [address], [phone], [facility] 02/11/2025 12:00:14 07/14/20 25 text/htm l Care Management - Congestive Heart Failure (CHF)Reported by Patient Patient seen today by Dr. Cancino at hospital f/u: new admit to . Was admitted to hospital for CHF. Currently gets dialysis [facility] [facility], [place] [address]Iflxlmxi SummarySignedPatient: Maryjo Lynn SMR#: [id number]: 1945cct#:[id number] ge/Sex: 79 / FADM Date: 06/03/25Loc: ICU Room/Bed: [address] Date: 06/18/25Attending Dr: Can Concepcion MDReport Number: [id number] Summary ProvidersDate of Admission:06/03/25 17:41Date of Discharge/Transfer:06/18/25At tending Provider at Admission:Skinny Mckeon MDAttending Provider at Transfer:Don Prabhakarults:Cardiology: Dr. Gibson/Dr. Recio nephrologySurgery: Dr. [place]Prim[place] Care Provider:Cee Cancino MDTransfer Plans: Anticipated date of transfer: 06/18/25. Receiving Facility: [facility]. Receiving Provider: Dr. Lo.Diagnoses at DischargeDischarge Diagnosis1. Cardiac arrest with ventricular fibrillation:2. Torsades de pointes:3. Nonischemic cardiomyopathy:4. Acute on chronic combined systolic and diastolic congestive heart failure:5. Acute renal failure with oliguria:6. Sleep apnea treated with continuous positive airway pressure (CPAP):7. Essential hypertension:8. Mild aortic stenosis:9. Atrial fibrillation with RVR:10. Elevated d-dimer:11. MGUS (monoclonal gammopathy of unknown significance):12. Rhinovirus infection:13. C. difficile diarrhea:14. Acute on chronic respiratory failure with hypoxia:15. Pneumonia of both lower lobes due to infectious organism:Reason for VisitReason for VisitDizzy Low Bp Weaking swelling Legs/FeetBrief History:Per HPICarol Yumi Lynn is a 79 year old female with history of congestive heart failure with EF 35 to 40% plus morbid obesity and sleep apnea comes in with acute renal failure oliguric. She states her urine output is fallen off last 1 week. She is on Entresto the last 9 months and torsemide for at least 5 years. Patient states she has walked with a walker for 10 years due to knee and back pain. She has history of falls a few times but longest she was on the ground was 20 minutes. She is dizzy and lightheaded when standing and her blood pressure was 80 on arrival BUN 104 creatinine 4.3. She has chronic kidney disease and takes no NSAIDs.Patient has nonischemic cardiomyopathy based on myocardial perfusion scan as recently as 11/05/2024 showing medium sized prior infarct in the LAD territory but no reversible ischemia. LV function reduced to 24% EF on that nuclear imaging. Echo showed EF 35 to 40%.Hospital CourseHospital CoursePatient was admitted to the hospital further evaluation and management of congestive heart failure, acute kidney injury with worsening of EF. At first she was started on aggressive IV diuresis but given her worsening renal functions she did not show improvement. Given worsening renal functions, hyperkalemia, uremia nephrology was consulted.During hospitalization she was also found to have borderline soft blood pressures for which her home antihypertensives were discontinued. Eventually she was started on midodrine. Patient continued to have episodes of orthostatic hypotension for which pyridostigmine was added to midodrine after which her blood pressures are stable. Currently she is on 10 of midodrine 3 times a day along with 60 of pyridostigmine 3 times a day.Eventually patient was started on hemodialysis with tunneled catheter which was placed on 06/08. Patient was doing well on hemodialysis and outpatient hemodialysis chair time was being set up when she developed acute hypoxic respiratory failure due to rhinovirus infection, pneumonia and congestive heart failure for which she was transferred to ICU started on broad-spectrum IV antibiotics, steroid treatment. Gradually her respiratory status improved and currently is at its baseline with 3-5 l of oxygen supplementation during the day and CPAP with 3 L bled in overnight.Her hospitalization further complicated by her developing multiple episodes of diarrhea for which she was found to be positive for C. difficile and started on oral vancomycin.Her hospitalization was further complicated by her developing episode of nonsustained V. tach for which at first she was started on IV amiodarone. On the night of 06/16 she had an episode of V-fib arrest for which she required to be defibrillated twice, had a 5 minutes CPR. Post ROSC she has been AO x 3, no neurological deficit. Cardiology was consulted and she underwent cardiac angiogram and PCI to RCA. Given concerns for recurrent nonsustained V. tach, frequent VPCs, V-fib arrest in setting of nonischemic cardiomyopathy cardiology recommended patient to have an ICD placement.Multiple goals of care discussions were done in setting of prolonged hospitalization, severe LV dysfunction with a EF of 20%, end-stage renal disease now on hemodialysis, severe deconditioning and options discussed were transferred to SNF or LTAC, possible transition to hospice. Patient verbalized understanding and changed her CODE STATUS to limited resuscitation with cardioversion only and is pursuing ICD placement.Unfortunately ICD cannot be placed at our hospital hence transfer to tertiary center was sought.Physical ExamNarrative:General: No acute distress, AO x3, chronically sick appearing, on CPAP nasal pillowsHEENT: PERRLA, pupils bilaterally equal and reactiveChest: Bilateral bronchial breath sounds lower lung raymond, decreased air entry all over, fine crackles in the right chestCVS: S1-S2 regular, no murmurs, no tachycardia, no gallops, no rubsAbdomen: Soft, nontender, no organomegaly, bowel sounds presentNeuro: No focal deficits, no facial deformity, AO x3, power 5/5 in all limbsUrinary Catheter Management: Romeo:Cath Placed During This Visit: yesReason for Continuing Indwelling Catheter: Accurate Measurement of Urinary Output in Critically Ill PatientsUrinary Catheter Date of Insertion: 06/03/25Urinary Catheter Time of Insertion: 18:38TS DataStudies Completed and PendingPending at dischargeCategory Date Time StatusCATH LAB request for service Routine Exams 06/17/25 08:15 TakenComplete Blood Count w/Auto AM LABS Lab 06/19/25 04:00 OrderedComplete Blood Count w/Auto AM LABS Lab 06/20/25 04:00 OrderedComplete Blood Count w/Auto AM LABS Lab 06/21/25 04:00 OrderedComprehensive Metabolic Panel AM LABS Lab 06/19/25 04:00 OrderedComprehensive Metabolic Panel AM LABS Lab 06/20/25 04:00 OrderedComprehensive Metabolic Panel AM LABS Lab 06/21/25 04:00 OrderedCompleted Studies During HospitalizationCategory Date Time StatusCT abdomen pelvis wo con 40062 Routine Cat Scan 06/05/25 11:39 CompletedCT angio chest PE protcl 83006 Routine Cat Scan 06/17/25 13:00 CompletedCT angio chest abd 47412/43090 Stat Cat Scan 06/10/25 10:28 CompletedCT chest abdomen pelvis [[place] [address]/30081 Cat Scan 06/08/25 10:00 Completed] RoutineFL barium swallow 72930 Routine Exams 06/04/25 12:46 CompletedXR chest 1V portable 72567 Routine Exams 06/10/25 08:37 CompletedXR chest 1V portable 88912 Routine Exams 06/13/25 09:01 CompletedXR chest 1V portable 91344 Routine Exams 06/15/25 07:59 CompletedXR chest 1V portable 55048 Routine Exams 06/17/25 04:52 CompletedXR chest 1V portable 70851 Stat Exams 06/03/25 12:58 [place] [address] Routine Ultrasound 06/17/25 04:57 CompletedCV. echo limited 57678 Routine Ultrasound 06/17/25 04:57 CompletedCV. echo limited 41037 Stat Ultrasound 06/10/25 10:54 CompletedUS echo complete [CV. echo complete* 04982] Routine Ultrasound 06/04/25 15:04 CompletedUS liver 58365 Routine Ultrasound 06/12/25 08:11 CompletedUS renal BI* 74712 Routine Ultrasound 06/04/25 15:04 CompletedLaboratory Last ValuesWBC 19.72 10^3/uL (3.29-11.43) 06/18/25 04:35RBC 2.77 10^6/uL (3.85-5.65) 06/18/25 04:35Hgb 9.60 g/dL (11.27-16.99) 06/18/25 04:35Hct 29.3 % (36-47) 06/18/25 04:35MCV 105.8 fl (85-98) 06/18/25 04:35MCH 34.7 pg (27-33) 06/18/25 04:35MCHC 32.8 g/dL (30-55)06/18/25 04:35RDW 18.1 % (12.1-15.1) 06/18/25 04:35Plt Count 221 10^3/cmm (157-399)06/18/25 04:35MPV 11.8 fL (7.4-10.4) 06/18/25 04:35Neut % (Auto) 89.5 %06/18/25 04:35Lymph % (Auto) 2.3 %06/18/25 04:35Mono % (Auto) 7.3 %06/18/25 04:35Eos % (Auto) 0.1 %06/18/25 04:35Baso % (Auto) 0.1 %06/18/25 04:35Neut # (Auto) 17.66 10^3/uL (1.8-7.7) 06/18/25 04:35Lymph # (Auto) 0.5 10^3/uL (0.8-4.8) 06/18/25 04:35Mono # (Auto) 1.4 10^3/uL (0.2-0.9) 06/18/25 04:35Eos # (Auto) 0.0 10^3/uL (0.0-0.8)06/18/25 04:35Baso # (Auto) 0.0 10^3/uL (0.0-0.1)06/18/25 04:35Nucleated RBC % (auto) 8.2 %06/18/25 04:35Nucleated RBCs # 1.6 /333PAL01/13/25 04:35D-Dimer 18.46 ug/mLFEU (0-0.59) 06/17/25 06:42Specimen Type Cykkpwew07/12/25 04:43Sample Site Brachial, right06/17/25 04:43ABG pH 7.31 (7.35-7.45) 06/17/25 04:43ABG pCO2 46.4 mmHg (35-45) 06/17/25 04:43ABG pO2 59.0 mmHg (80.0-100.0) 06/17/25 04:43ABG PO2/FiO2 Ratio 3166206/12/25 08:42ABG HCO3 23.2 mmol/L (22-26)06/17/25 04:43ABG O2 Saturation 89. 04:43ABG Base Excess -3.1 mmol/L (-2.0-2.0) 06/17/25 04:43Allen Test N/a108/17/24 04:43A-a O2 Gradient 4.4 mmHg (5-10) 06/17/25 04:43Hematocrit 33.5 % (37-47) 06/17/25 04:43Hgb O2 Saturation 88.1 % (95-100) 06/17/25 04:43Carboxyhemoglobin 0.8 %THgb (0.4-20.1)06/17/25 04:43Methemoglobin 0.6 % (0.4-1.5)06/17/25 04:43Total Hemoglobin 10.9 g/dL (12-16) 06/17/25 04:43Sodium 134.0 mmol/L (131-143)06/17/25 04:43Potassium 4.5 mmol/L (3.5-5.0)06/17/25 04:43Glucose 180.0 mg/dL (70-115) 06/17/25 04:43Ionized Calcium 1.4 mmol/L (1.1-1.4)06/17/25 04:43O2 Delivery Device Nrb108/17/24 04:43O2 Liters/Min 15.0 %06/17/25 04:43FiO2 28.0 %06/12/25 08:42Operator ID [id number] 04:43Sodium 136 mmol/L (136-145)06/18/25 04:35Potassium 4.7 mmol/L (3.5-5.1)06/18/25 04:35Chloride 94 mmol/L (98-107) 06/18/25 04:35Carbon Dioxide 23 mmol/L (22-29)06/18/25 04:35Anion Gap 23.7 (5-19) 06/18/25 04:35BUN 54 mg/dL (8-23) 06/18/25 04:35Creatinine 3.1 mg/dL (0.5-0.9) 06/18/25 04:35GFR Calculation Not Jwurzarocg28/13/25 04:35Glucose 129 mg/dL (65-115) 06/18/25 04:35POC Glucose 115 mg/dL (70-110) 06/17/25 04:49Estimat Average Glucose 04:49Hemoglobin A1c 4.9 % (4.0-6.0)06/08/25 04:49Calculated Osmolality 298 mOsm/kg (285-295) 06/18/25 04:35Lactic Acid 1.3 mmol/L (0.5-2.2)06/03/25 13:29Calcium 9.4 mg/dL (8.5-10.5)06/18/25 04:35Phosphorus 5.1 mg/dL (2.5-4.5) 06/17/25 04:34Magnesium 2.2 mg/dL (1.7-2.3)06/17/25 04:34Iron 64 ug/dL (37-145)06/14/25 04:50TIBC 288 mcg/dl06/14/25 04:50% Saturation 22.2 % (20-50)06/14/25 04:50Unsat Iron Binding 224 ug/dL (112-347)06/14/25 04:50Ferritin 654 ng/mL (15-150) 06/14/25 04:50Total Bilirubin 0.7 mg/dL (0.15-1.2)06/18/25 04:35AST 68 U/L (0-32) 06/18/25 04:35ALT 42 U/L (0-33) 06/18/25 04:35Alkaline Phosphatase 229 U/L (35-105) 06/18/25 04:35Ammonia 44 umol/L (11-51)06/13/25 03:30Creatine Kinase 150 U/L (26-192)06/03/25 13:29Troponin T Baseline 279 ng/L (0-10) H*06/17/25 04:34Troponin T 120 Minute 294.8 ng/L (0-10) 06/17/25 06:42Delta Troponin T 15.8 ABS# (0-10) H*06/17/25 06:42Troponin T Hi Sens 6Hr 162.2 ng/L (0-10) 06/03/25 19:12Troponin T Hi Sens 6Hr Delta -24.8 ng/L (0-12) 06/03/25 19:12C-Reactive Protein 12.4 mg/L (0.0-4.9) 06/03/25 13:29NT-Pro-B Natriuret Pep 42211 pg/mL (0-450) 06/03/25 13:29Total Protein 5.9 g/dL (6.6-8.7) 06/18/25 04:35Albumin 4.1 g/dL (3.5-5.2)06/18/25 04:35Globulin 1.8 g/dL (1.3-4.6)06/18/25 04:41Gvqlf-7-Lkkdhnuej 0.4 g/dL (0.2-0.3) 06/04/25 16:04Jewus-0-Dolwbehqo 0.8 g/dL (0.5-0.9)06/04/25 16:72Qtbd-0-Hjcbgyay 0.4 g/dL (0.4-0.6)06/04/25 16:02Mqnp-4-Fhyermhm 0.3 g/dL (0.2-0.5)06/04/25 16:38Gamma Globulins 0.4 g/dL (0.8-1.7) 06/04/25 16:38Abnorm Protein Band 1 0.1 g/dL (NONE DETECTED) 06/04/25 16:38Vitamin B12 > 2000 pg/mL (232-1245) 06/13/25 03:3025-OH Vitamin D Total53 ng/mL (30-100)06/14/25 04:50Folate > 20.0 ng/mL (4.8-37.3)06/13/25 03:30TSH 9.12 uIU/mL (0.27-4.20) 06/03/25 13:29Free T4 1.50 ng/dL (0.82-1.77)06/08/25 04:49Random Cortisol 14.07 ug/dL (2.47-19.5)06/08/25 04:49Urine Color Dark yellow (Yellow) 06/03/25 18:35Urine Appearance Clear (CLEAR)06/03/25 18:35Urine pH 5.0 (5-7)06/03/25 18:35Ur Specific [place] 1.013 (1.005-1.030)06/03/25 18:35Urine Protein 1+ (Negative) 06/03/25 18:35Urine Glucose (UA) Negative (Normal)06/03/25 18:35Urine Ketones Negative (Negative)06/03/25 18:35Urine Blood Negative (Negative)06/03/25 18:35Urine Nitrate Negative (Negative)06/03/25 18:35Urine Bilirubin Negative (Negative)06/03/25 18:35Urine Urobilinogen 0.2 mg/dL (Negative)06/03/25 18:35Ur Leukocyte Esterase Trace (Negative) A1 18:35Urine RBC 3-5 /hpf (0-2)06/03/25 18:35Urine WBC 0-5 /hpf (0-5)06/03/25 18:35Ur Squamous Epith Cells 0-5 /hpf (0-5)06/03/25 18:35Amorphous Sediment Not Mtnsuhbart45/29/25 18:35Urine Bacteria None seen /hpf (NONE)06/03/25 18:35Hyaline Casts 20.27 /lp06/03/25 18:35Ur Random Creatinine 51 mg/dL (20-275)06/04/25 17:00Ur Random Albumin 73 %06/04/25 17:00U Random Total Protein 21 mg/dL06/04/25 17:00U Random Total Protein 25 mg/dL (5-24) 06/04/25 17:00Ur Random Sodium 65 mmol/L1 17:00Ur Random Chloride 63 mmol/L1 17:00Urine Creatinine 54 mg/dL (28-217)06/04/25 17:00Protein/Creatinin Ratio 490 mg/g creat (24-184) 06/04/25 17:00Protein/Creat Ratio 24h 0.490 (0.024-0.184) 06/04/25 17:00U Random a-5-Jqiafhah % 3 %06/04/25 17:00U Random h-7-Sctidwpq % 5 %06/04/25 17:00U Random Beta Globulin 10 %06/04/25 17:00U Random Gamma Glob 10 %06/04/25 17:00U Abnormal Prot Band 1 Not Wmedmjmiex35/30/25 17:00U Abnormal Prot Band 2 Not Dazvsshrmm31/30/25 17:00U Abnormal Prot Band 3 Not Kaijtcfowa05/30/25 17:00Urine PEP Interpret See note10/30/25 17:00Nasal MRSA (PCR) Not detected (Not Detecte)06/10/25 14:59Pro Electrophoresis Int See note06/04/25 16:38ANA IFA Animal Tis Res Negative (NEGATIVE)06/04/25 16:38ANCA Screen Negative (NEGATIVE)06/04/25 16:38ANCA Titer Not Zxncudbqhu24/30/25 16:38JO-1 Antibody <1.0 neg AI (<1.0 NEG)06/04/25 16:38SS-A Antibody <1.0 neg AI (<1.0 NEG)06/04/25 16:38SS-B Antibody <1.0 neg AI (<1.0 NEG)06/04/25 16:38Sm (Lemon) Antibody <1.0 neg AI (<1.0 NEG)06/04/25 16:38RNP Antibody <1.0 neg AI (<1.0 NEG)06/04/25 16:38Scl-70 Antibody <1.0 neg AI (<1.0 NEG)06/04/25 16:38Anti-ds DNA IgG (Crith) Negative (NEGATIVE)06/04/25 16:38Centromere B Antibody <1.0 neg AI (<1.0 NEG)06/04/25 16:38Thyroid Peroxidase Ab 35 IU/mL (<9) 06/04/25 16:38Complement C3 113 mg/dL (90-180)06/04/25 16:38Complement C3c 104 mg/dL (83-193)06/04/25 16:38Complement C4 36 mg/dL (10-40)06/04/25 16:38Complement C4c 35 mg/dL (15-57)06/04/25 16:38CH50 Classical Pathway 53 U/mL (31-60)06/04/25 16:38Free [place] Light Chains 28.7 mg/L (3.3-19.4) 06/05/25 05:23Free Lambda Light Chain 1386.1 mg/L (5.7-26.3) 06/05/25 05:23Free [place]/Lambda Ratio 0.02 (0.26-1.65) L1 05:23Adenovirus (PCR) Not detected (NOT DETECT)06/10/25 14:54C. pneumoniae DNA (PCR) Not detected (NOT DETECT)06/10/25 14:54C. difficile (PCR) Positive (Negative) H108/15/24 09:30C.difficile Tox Confrm Negative (Negative)06/15/25 09:30Coronavirus 229E (PCR) Not detected (NOT DETECT)06/10/25 14:54Hep Bs Antigen Non-reactive (Nonreactive)06/09/25 04:45Hep Bs Antibody < 3.5 (11.5-1000) L108/09/24 04:45Hep B Core Total Ab Non-reactive (Nonreactive)06/09/25 04:45Hepatitis C Antibody Non-reactive (Nonreactive)06/13/25 03:30Human Metapneumovir PCR Not detected (NOT DETECT)06/10/25 14:54Influenza A (H1) PCR Not detected (NOT DETECT)06/10/25 14:54Influ A (H1/09) PCR Not detected (NOT DETECT)06/10/25 14:54Influenza A (H3) PCR Not detected (NOT DETECT)06/10/25 14:54Influenza Type A (PCR) Not detected (NOT DETECT)06/10/25 14:54Influenza Type B (PCR) Not detected (NOT DETECT)06/10/25 14:54M. pneumoniae (PCR) Not detected (NOT DETECT)06/10/25 14:54Parainfluenza 1 (PCR) Not detected (NOT DETECT)06/10/25 14:54Parainfluenza 2 (PCR) Not detected (NOT DETECT)06/10/25 14:54Parainfluenza 3 (PCR) Not detected (NOT DETECT)06/10/25 14:54Parainfluenza 4 (PCR) Not detected (NOT DETECT)06/10/25 14:54RSV Type A (PCR) Not detected (NOT DETECT)06/10/25 14:54RSV Type B (PCR) Not detected (NOT DETECT)06/10/25 14:54Entero/Rhino (PCR) Detected (NOT DETECT) A108/10/24 14:30TDFQ-ZvT-6 (PCR) Not detected (NOT DETECT)06/10/25 14:54Radiology ImpressionsBarium Swallow X-Ray 06/04/25 12:46IMPRESSION:1. Limited esophagram showing extrinsic leftward esophageal displacement most likely secondary to a mediastinal mass. This may be secondary to goiter.2. No intrinsic esophageal mass was seen.3. Esophageal spasm and moderate-sized hiatal hernia were noted.Renal Ultrasound 06/04/25 15:04IMPRESSION:1. Quality of this ultrasound is limited by patient's body habitus.2. Poorly visualized LEFT kidney.3. No renal obstruction.4. Hypoechoic mass from the mid RIGHT kidney measures 1.5 x 0.9 x 0.8 cm. Cannot be further characterized as cystic or solid by ultrasound. Consider additional evaluation by CT or MRI with and without contrast. Renal mass protocol should be utilized.Abdomen/Pelvis CT 06/05/25 11:39IMPRESSION:1. Small bilateral pleural effusions.2. Cardiomegaly.3. Large amount of soft tissue anasarca and a small amount of ascites.4. This is a nondiagnostic evaluation of the previously described RIGHT renal mass. There is a large amount of streak artifact from barium patient ingested for barium swallow study on 06/04/2025. Streak artifact is obscuring large portions of the abdomen and pelvis. Also, a noncontrast CT is insufficient to evaluate the RIGHT renal mass seen on ultrasound. Before additional imaging of the abdomen and pelvis is performed recommend sufficient interval time in order for the high density contrast to be evacuated.5. Cardiomegaly.6. Hiatal hernia. There is still high density oral contrast within the hiatal hernia.Chest/Abdomen/Pelvis CT 06/08/25 10:00IMPRESSION: Images of the abdomen and pelvis remain limited due to significant beam hardening artifact from barium in the colon1. Tiny bilateral pleural effusions.2. No visualized mediastinal mass.3. Cardiomegaly.4. Large esophageal hiatal hernia.5. No visualized renal mass considering limitations on this noncontrast study that would correspond to the ultrasound findings. Current exam is limited and recommend interval follow-up after barium clears with contrast-enhanced CT abdomen pelvis. Follow-up exam to evaluate renal lesion needs to be performed with IV contrast in order to evaluate the previously described renal lesion seen on ultrasoundC-Arm Fluoroscopy 06/09/25 14:32Impression:Right dialysis catheter insertion.Chest/Abdomen CTA 06/10/25 10:28IMPRESSION:Multifocal pneumonia with effusions. ======IMPRESSION:No acute subdiaphragmatic pathology.Liver Ultrasound 06/12/25 08:11IMPRESSION:1. Normal gallbladder.2. Abnormal flow in the portal vein. Loss of the normal smooth undulating waveform. There is still some flow present in the portal vein. No thrombus identified. The waveform is abnormal. There is no reversal of the normal undulating pattern is not present. Some of these changes may be due to patient's body habitus and limitations of the ultrasound evaluation. The portal vein was patent with no thrombus on the CT of 06/10/2025.3. No ascites.4. No intrahepatic duct dilatation.Chest X-Ray 06/17/25 04:52IMPRESSION:1. Mild cardiomegaly.2. Increased mild pulmonary vascular congestion/fluid overload.Venous Duplex 06/17/25 04:57IMPRESSION:No evidence of deep vein thrombosis.Chest CTA 06/17/25 13:00IMPRESSION:1. No pulmonary emboli identified.2. Small bilateral pleural effusions, RIGHT greater than LEFT.3. New pulmonary edema and areas of atelectasis in the lower lung raymond. Irregular opacification LEFT upper lobe may be developing pneumonia.4. Extensive soft tissue anasarca and edema has progressed.5. There is a small amount of fluid in the anterior mediastinum of uncertain etiology. May be due to fluid overload. Fluid closely associated with the ascending aorta. Clinically evaluate for possible injury to the aorta great vessels. This is only a small amount of fluid and could be due to overall fluid overload which is evident.Kntifagjpnng83/06/25 13:52 Sputum - Expectorated Sputum Gram Stain - Final06/11/25 13:52 Sputum - Expectorated Sputum Sputum Culture - Final06/03/25 13:27 Blood Blood Culture - FinalNO GROWTH AFTER 5 DAYS06/03/25 13:29 Blood Blood Culture - FinalNO GROWTH AFTER 5 DAYSRecent Clincial DataLast Vital SignsTemp 98.0 F 06/18/25 12:00Pulse 70 06/18/25 15:30Resp 17 06/18/25 15:30BP 102/54 06/18/25 15:30Pulse Ox 95 06/18/25 15:30O2 Del Method BiPAP 06/18/25 15:00O2 Flow Rate 4 06/18/25 14:00FiO2 50 06/18/25 15:16Vital SignsTemp Pulse Resp BP Pulse Ox O2 Del Method O2 Flow Rate06/18/25 15:30 70 17 102/54 15:16 77 15:15 77 28 H 91/59 15:00 69 15 78/48 92 BiPAP108/18/24 14:45 76 21 H 99/81 81 L108/18/24 14:30 72 19 H 107/89 14:15 80 11 L 105/61 14:00 79 16 106/57 100 Nasal Cannula 13:45 78 13 106/52 13:40 13:33 78 19 H 98 Nasal Cannula 13:30 75 15 106/52 13:15 78 13 116/72 13:00 81 15 128/75 92 Nasal Cannula 12:45 78 26 H 101/64 12:30 76 21 H 142/72 12:15 75 12 123/75 84 06/18/25 12:00 98.0 F 74 8 L 123/75 92 Nasal Cannula 11:45 74 14 112/80 11:30 74 14 123/76 11:15 76 13 132/67 11:00 76 21 H 114/69 94 Nasal Cannula 10:45 75 23 H 114/69 10:30 76 5 L 115/85 10:15 75 0 L 119/75 10:00 75 9 L 127/73 97 Nasal Cannula 09:45 76 1 L 122/78 09:30 72 8 L 119/84 09:15 78 10 L 115/72 09:00 78 6 L 121/64 08:45 80 4 L 115/76 08:30 77 12 124/74 08:15 73 13 124/74 08:10 77 18 98 Nasal Cannula 08:00 98.4 F 74 15 111/77 98 Nasal Cannula 07:45 74 5 L 118/71 07:30 73 8 L 113/69 07:15 73 7 L 124/62 07:00 73 18 115/73 06:45 74 17 116/72 06:00 74 12 115/71 05:45 68 19 H 114/65 05:30 75 18 121/69 05:15 75 6 L 112/69 05:00 69 13 144/57 04:45 76 0 L 89/60 04:30 70 17 89/60 [id number] 15: 15:16 15: 15:00 14: 14: 14: 14: 13: 13: 13: 13: 13: 13: 12: 12: 12: 12: 11: 11: 11: 11: 10: 10: 10: 10: 09: 09: 09: 09: 08: 08: 08: 08: 08: 07: 07: 07: 07: 06: 06: 05: 05: 05: 05: 04: 04:30Intake & Output/Frqvwx5106/16/251106/18/25116:5906:5906: 5906:59Intake Zspjl4525 / [id number] / [id number] / [id number] / 680.022Output Meefe6630 / 739922 / 819534 / 1205Balance-980 / -2989628 / [id number] / [id number] / 680.424Hinfyq794.5 kg111.5 kgVitalsLast Vital SignsTemp 98.0 F 06/18/25 12:00Pulse 70 06/18/25 15:30Resp 17 06/18/25 15:30BP 102/54 06/18/25 15:30Pulse Ox 95 06/18/25 15:30O2 Del Method BiPAP 06/18/25 15:00O2 Flow Rate 4 06/18/25 14:00FiO2 50 06/18/25 15:16TS MedicationsMedicationsAcetami nophen (Acetaminophen 325 Mg Tablet) 650 mg PO Q6H PRNPRN Reason: Mild/Mod Pain Or Temp >/= 101Hydrocodone Bitart/Acetaminophen (Hydrocodone-Acetaminophen 5-325 Mg Tablet) 1 tab PO Q6H PRNPRN Reason: PAINLast Admin: 06/15/25 23:20 Dose: 1 tabAlbuterol Sulfate (Albuterol 2.5 Mg/3 Ml Neb) 2.5 mg INHALATION QID.RESPIRATORY PRNPRN Reason: WHEEZINGAmiodarone HCl (Amiodarone 200 Mg Tablet) 400 mg PO BID SCHLast Admin: 06/18/25 10:59 Dose: 400 mgArtificial Tears (Artificial Tears Op Soln 15 Ml Btl) 1 drop EYE-BOTH Q4H PRNPRN Reason: DRY EYE(S)Aspirin (Aspirin 81 Mg Ec Tablet) 81 mg PO DAILY SCHLast Admin: 06/18/25 04:16 Dose: 81 mgAtorvastatin Calcium (Atorvastatin 20 Mg Tablet) 20 mg PO BEDTIME SCHBudesonide (Budesonide 0.5 Mg/2 Ml Neb) 0.5 mg INHALATION BID.RESPIRATORY SCHLast Admin: 06/18/25 08:06 Dose: 0.5 mgCarbidopa/Levodopa (Carbidopa-Levodopa Er 50-200mg Tablet) 1 each PO TID SCHLast Admin: 06/18/25 12:26 Dose: 1 eachClopidogrel Bisulfate (Clopidogrel 75 Mg Tablet) 75 mg PO DAILY SCHLast Admin: 06/18/25 04:16 Dose: 75 mgFluticasone Propionate (Fluticasone Nasal [place] 16gm Btl) 2 spray INTRANASAL BEDTIME SCHLast Admin: 06/17/25 20:18 Dose: 2 sprayGabapentin (Gabapentin 100 Mg Capsule) 200 mg PO BEDTIME SCHLast Admin: 06/17/25 20:02 Dose: 200 mgHeparin Sodium (Porcine) (Heparin 5,000 Unit/Ml Inj 1 Ml) 5,000 unit SUBCUT Q12H SCHLast Admin: 06/18/25 12:23 Dose: 5,000 unitSodium Chloride (Sodium Chloride 0.9%) 1,000 mls @ 0 mls/hr IV .Q0M PRNPRN Reason: hypotension or symptomaticSodium Chloride (Sodium Chloride 0.9%) 1,000 mls @ 0 mls/hr IV .Q0M PRNPRN Reason: hypotension or symptomaticAlbumin Human (Albumin) 12.5 gm in 50 mls @ 60 mls/hr IV PRN PRNPRN Reason: Hypotension and/or symptomaticIpratropium [place] (Ipratropium 0.5 Mg/2.5 Ml Neb) 0.5 mg INHALATION Q6H.RESP SCHLast Admin: 06/18/25 13:33 Dose: 0.5 mgLactulose (Lactulose Oral Liq 20 Gm/30 Ml Udc) 20 gm PO Q12H PRNPRN Reason: CONSTIPATIONLevalbuterol HCl (Levalbuterol 0.63 Mg/3 Ml Neb) 0.63 mg INHALATION Q6H.RESP SCHLast Admin: 06/18/25 13:33 Dose: 0.63 mgLevothyroxine Sodium (Levothyroxine 200 Mcg Tablet) 200 mcg PO DAILY SCHLast Admin: 06/18/25 04:16 Dose: 200 mcgLidocaine (Lidocaine 5% Patch) 1 patch TOPICAL [id number] SCHLast Admin: 06/18/25 04:13 Dose: Not GivenMetoclopramide HCl (Metoclopramide 5 Mg/Ml Sdv 2 Ml) 5 mg IVP Q6H PRNPRN Reason: NAUSEA AND VOMITINGLast Admin: 06/16/25 05:15 Dose: 5 mgMidodrine (Midodrine 5 Mg Tablet) 10 mg PO TID SCHLast Admin: 06/18/25 12:26 Dose: 10 mgMontelukast Sodium (Montelukast Sodium 10 Mg Tablet) 10 mg PO BEDTIME SCHLast Admin: 06/17/25 20:02 Dose: 10 mgMorphine Sulfate (Morphine 4 Mg/Ml Sdv 1 Ml) 1 mg IVP Q4H PRNPRN Reason: SEVERE PAINLast Admin: 06/17/25 14:20 Dose: 1 mgOndansetron HCl (Ondansetron 2 Mg/Ml Sdv 2 Ml) 4 mg IVP Q8H PRNPRN Reason: vomiting, or N/V if npoLast Admin: 06/16/25 01:08 Dose: 4 mgPantoprazole Sodium (Pantoprazole Dr 40 Mg Tablet) 40 mg PO DAILY SCHLast Admin: 06/18/25 04:16 Dose: 40 mgPrednisone (Prednisone 20 Mg Tablet) 40 mg PO DAILY SCHStop: 06/19/25 04:59Last Admin: 06/18/25 04:17 Dose: 40 mgPyridostigmine [place] (Pyridostigmine 60 Mg Tablet) 60 mg PO TID SCHLast Admin: 06/18/25 12:26 Dose: 60 mgSenna/Docusate Sodium (Sennosides-Docusate Tablet) 1 tab PO BID PRNPRN Reason: CONSTIPATIONTrazodone HCl (Trazodone 50 Mg Tablet) 50 mg PO BEDTIME PRNPRN Reason: RESTLESSNESSLast Admin: 06/15/25 20:20 Dose: 50 mgVancomycin HCl (Vancomycin 125 Mg Capsule) 500 mg PO Q6H SCHLast Admin: 06/18/25 12:24 Dose: 500 mgDiscontinued MedicationsAlbuterol Sulfate (Albuterol 2.5 Mg/3 Ml Neb) 2.5 mg INHALATION QID.RESPIRATORY SCHLast Admin: 06/10/25 15:50 Dose: 2.5 mgAlbuterol Sulfate (Albuterol 2.5 Mg/3 Ml Neb) 2.5 mg INHALATION ONCE PRNPRN Reason: WHEEZINGAlteplase, Recombinant (Alteplase 1 Mg/Ml Sdv 2 Ml) 2 mg INTRACATH ONCE ONE; ProtocolStop: 06/17/25 07:10Last Admin: 06/17/25 08:10 Dose: 2 mgAlteplase, Recombinant (Alteplase 1 Mg/Ml Sdv 2 Ml) 2 mg INTRACATH ONCE ONEStop: 06/17/25 08:01Last Admin: 06/17/25 16:50 Dose: Not GivenAmiodarone HCl (Amiodarone 200 Mg Tablet) 200 mg PO DAILY SCHLast Admin: 06/15/25 04:47 Dose: 200 mgAmiodarone HCl (Amiodarone 200 Mg Tablet) 400 mg PO BIDWM SCHLast Admin: 06/16/25 08:15 Dose: 400 mgAtorvastatin Calcium (Atorvastatin 40 Mg Tablet) 40 mg PO DAILY SCHLast Admin: 06/12/25 05:28 Dose: 40 mgBisoprolol Fumarate (Bisoprolol 5 Mg Tablet) 1.25 mg PO DAILY SCHLast Admin: 06/12/25 12:51 Dose: Not GivenBisoprolol Fumarate (Bisoprolol 5 Mg Tablet) 2.5 mg PO DAILY SCHBupivacaine HCl (Bupivacaine 0.25% Inj 30 Ml) Confirm Administered Dose 30 ml .[address] .[facility] ONEStop: 06/09/25 10:28Bupivacaine HCl (Bupivacaine 0.25% Inj 30 Ml) 30 ml INJECTION ONCE ONEStop: 06/09/25 11:00Last Admin: 06/09/25 12:43 Dose: 6 mlCalcium Chloride (Calcium Chloride 10% Syr 10 Ml) 1 gm IVP ONCE ONEStop: 06/17/25 04:42Last Admin: 06/17/25 04:42 Dose: 1 gmCefazolin Sodium (Cefazolin 1,000 Mg Sdv) Confirm Administered Dose 3,000 [address] .[address] .[facility] ONEStop: 06/09/25 12:38Last Admin: 06/09/25 13:51 Dose: Not GivenCefazolin Sodium (Cefazolin 2,000 Mg Sdv) 3,000 mg IVP ONCE ONE; ProtocolStop: 06/09/25 12:26Last Admin: 06/09/25 12:38 Dose: 3,000 mgCetirizine HCl (Cetirizine 10 Mg Tablet) 10 mg PO DAILY PRNPRN Reason: Allergy SymptomsCetirizine HCl (Cetirizine 10 Mg Tablet) 10 mg PO DAILY SCHLast Admin: 06/12/25 05:27 Dose: 10 mgClopidogrel Bisulfate (Clopidogrel 300 Mg Tablet) 600 mg PO ONCE ONEStop: 06/17/25 05:18Last Admin: 06/17/25 06:00 Dose: 600 mgLidocaine HCl 15 ml/ Al Hydrox /Mg Hydrox/Simethicone 30 ml/Sucralfate 1 gm 0 ml PO ONCE ONEStop: 06/17/25 20:33Last Admin: 06/17/25 20:46 Dose: 1 suspensionCyclobenzaprine HCl (Cyclobenzaprine 10 Mg Tablet) 10 mg PO BEDTIME SCHLast Admin: 06/09/25 21:36 Dose: 10 mgDexamethasone (Dexamethasone 4 Mg/Ml Inj) 4 mg IVP Q5M PRNPRN Reason: Nausea unrelieved by ReglanStop: 06/10/25 12:18Docusate Sodium (Docusate Sodium 100 Mg Capsule) 100 mg PO ONCE ONEStop: 06/12/25 07:31Last Admin: 06/12/25 09:03 Dose: 100 mgEpinephrine HCl (Epinephrine 0.1 Mg/Ml Syr 10 Ml) 1 mg IVP ONCE ONEStop: 06/17/25 04:42Last Admin: 06/17/25 04:42 Dose: 1 mgFamotidine (Famotidine 20 Mg/2 Ml Inj) 20 mg IVP ONCE PRNPRN Reason: HEARTBURNFentanyl (Fentanyl 50 Mcg/Ml Inj 2ml) 50 mcg IVP Q10M PRNPRN Reason: Preop PainFentanyl (Fentanyl 50 Mcg/Ml Inj 2ml) 100 mcg IVP ONCE PRNPRN Reason: Per anesthesia for blockFentanyl (Fentanyl 50 Mcg/Ml Inj 2ml) Confirm Administered D[facility] ONE[facility]: 06/09/25 11:59Fentanyl (Fentanyl 50 Mcg/Ml Inj 2ml) 50 mcg IVP Q5M PRNPRN Reason: Pain level 6-10 PACU Phase IStop: 06/10/25 12:18Fentanyl (Fentanyl 50 Mcg/Ml Inj 2ml) Confirm Administered Dose 100 mcg .ROUTE .[facility] ONEStop: 06/17/25 09:58Fidaxomicin (Fidaxomicin 200 Mg Tablet) 200 mg PO BID MAL; ProtocolStop: 06/25/25 05:01Last Admin: 06/16/25 04:58 Dose: 200 mgFluconazole (Fluconazole 100 Mg Tablet) 100 mg PO DAILY SCHStop: 06/12/25 20:59Last Admin: 06/12/25 05:27 Dose: 100 mgFurosemide (Furosemide 10 Mg/Ml Sdv 10ml) 80 mg IVP ONCE ONEStop: 06/04/25 12:51Last Admin: 06/04/25 13:13 Dose: 80 mgFurosemide (Furosemide 10 Mg/Ml Sdv 10ml) 80 mg IVP BID SCHLast Admin: 06/11/25 05:26 Dose: 80 mgFurosemide (Furosemide 40 Mg Tablet) 40 mg PO BID@08,16 SCHLast Admin: 06/13/25 09:22 Dose: 40 mgFurosemide (Furosemide 10 Mg/Ml Sdv 10ml) 60 mg IVP Q12H SCHLast Admin: 06/16/25 09:59 Dose: 60 mgGabapentin (Gabapentin 300 Mg Capsule) 300 mg PO BEDTIME SCHLast Admin: 06/13/25 20:33 Dose: 300 mgHeparin Sodium (Porcine) (Heparin, Porcine 1,000 Unit/Ml Inj 10 Ml) 10,000 unit INTRACATH ONCE ONEStop: 06/09/25 07:34Last Admin: 06/09/25 14:43 Dose: Not GivenHeparin Sodium (Porcine) (Heparin, Porcine 1,000 Unit/Ml Inj 10 Ml) 1,000 unit IV ONCE ONEStop: 06/09/25 07:34Last Admin: 06/09/25 14:44 Dose: Not GivenHeparin Sodium (Porcine) (Heparin, Porcine 1,000 Unit/Ml Inj 10 Ml) 10,000 unit IRRIGATION ONCE ONEStop: 06/09/25 11:01Last Admin: 06/09/25 12:43 Dose: 6,000 unitHeparin Sodium (Porcine) (Heparin, Porcine 1,000 Unit/Ml Inj 10 Ml) 10,000 unit INTRACATH ONCE ONEStop: 06/09/25 14:36Last Admin: 06/09/25 18:39 Dose: 10,000 unitHeparin Sodium (Porcine) (Heparin, Porcine 1,000 Unit/Ml Inj 10 Ml) 1,000 unit IV ONCE ONEStop: 06/09/25 14:36Last Admin: 06/09/25 18:39 Dose: 1,000 unitHeparin Sodium (Porcine) (Heparin 5,000 Unit/Ml Inj 1 Ml) 5,000 unit SUBCUT Q12H SCHLast Admin: 06/16/25 20:27 Dose: 5,000 unitHeparin Sodium (Porcine) (Heparin, Porcine 1,000 Unit/Ml Inj 10 Ml) 1,000 unit IV ONCE ONEStop: 06/11/25 09:10Last Admin: 06/11/25 12:50 Dose: 1,000 unitHeparin Sodium (Porcine) (Heparin, Porcine 1,000 Unit/Ml Inj 10 Ml) 1,000 unit IV ONCE ONEStop: 06/12/25 07:33Last Admin: 06/12/25 10:00 Dose: 1,000 unitHeparin Sodium (Porcine) (Heparin, Porcine 1,000 Unit/Ml Inj 10 Ml) 1,000 unit IV ONCE ONEStop: 06/14/25 07:51Last Admin: 06/14/25 17:22 Dose: Not GivenHeparin Sodium (Porcine) (Heparin, Porcine 1,000 Unit/Ml Inj 10 Ml) 1,000 unit IV ONCE ONEStop: 06/15/25 06:46Last Admin: 06/15/25 11:50 Dose: 1,000 unitHeparin Sodium (Porcine) (Heparin, Porcine 1,000 Unit/Ml Inj 10 Ml) 10,000 unit INTRACATH ONCE ONEStop: 06/17/25 04:23Last Admin: 06/17/25 16:49 Dose: Not GivenHeparin Sodium (Porcine) (Heparin, Porcine 1,000 Unit/Ml Inj 10 Ml) 1,000 unit IV ONCE ONEStop: 06/17/25 04:23Last Admin: 06/17/25 16:49 Dose: Not GivenHeparin Sodium (Porcine) (Heparin 5,000 Unit/Ml Inj 1 Ml) 0 unit IVP PRN PRN; ProtocolPRN Reason: Heparin Weight Based Protocol -Subsequent BolusHeparin Sodium (Porcine) (Heparin 5,000 Unit/Ml Inj 1 Ml) 0 unit IVP ONCE ONE; ProtocolStop: 06/17/25 04:57Last Admin: 06/17/25 05:28 Dose: Not GivenHeparin Sodium (Porcine) (Heparin 5,000 Unit/Ml Inj 1 Ml) Confirm Administered Dose 10,[address] [facility] ONEStop: 06/17/25 09:58Heparin Sodium (Porcine) (Heparin 5,000 Unit/Ml Inj 1 Ml) Confirm Administered Dose 5,000 unit .ROUTE .[facility] ONEStop: 06/17/25 11:48Hydromorphone HCl (Hydromorphone 1 Mg/Ml Inj 1ml) 0.25 mg IVP Q10M PRNPRN Reason: Pain level 4-6 PACU Phase IStop: 06/10/25 12:18Hydromorphone HCl (Hydromorphone 1 Mg/Ml Inj 1ml) 0.5 mg IVP Q10M PRNPRN Reason: Pain level 7-10 PACU Phase IStop: 06/10/25 12:18Sodium Chloride (Sodium Chloride 0.9%) 1,000 mls @ 999 mls/hr IV .Q1H1M ONEStop: 06/03/25 15:42Last Infusion: 06/03/25 17:41 Dose: InfusedSodium Bicarbonate 150 meq/ (Dextrose) 1,150 mls @ 35 mls/hr IV .Q24H SCHLast Infusion: 06/05/25 21:43 Dose: InfusedLactated Ringer's (Lactated Ringers) 1,000 mls @ 999 mls/hr IV .Q1H1M ONEStop: 06/03/25 18:52Last Infusion: 06/03/25 19:23 Dose: InfusedDextrose (D5w) 1,000 mls @ 150 mls/hr IV .Q6H40M SCHStop: 06/04/25 07:39Last Admin: 06/04/25 03:07 Dose: Not GivenLactated Ringer's (Lactated Ringers) 500 mls @ 999 mls/hr IV .Q31M ONEStop: 06/04/25 07:21Last Infusion: 06/04/25 08:10 Dose: InfusedSodium Chloride (Sodium Chloride 0.9%) 1,000 mls @ 0 mls/hr IV .Q0M PRNPRN Reason: hypotension or symptomaticAlbumin Human (Albumin) 12.5 gm in 50 mls @ 60 mls/hr IV PRN PRNPRN Reason: Hypotension and/or symptomaticHeparin Sodium (Porcine) (Heparin, Porcine) Confirm Administered Dose 10 mls @ as directed .ROUTE .[facility] ONEStop: 06/09/25 10:27Sodium Chloride (Sodium Chloride 0.9%) 1,000 mls @ 30 mls/hr IV .Q24H SCHStop: 06/10/25 11:29Last Admin: 06/09/25 13:51 Dose: Not GivenSodium Chloride (Sodium Chloride 0.9%) 1,000 mls @ 30 mls/hr IV .Q24H SCHLast Admin: 06/09/25 13:51 Dose: Not GivenSodium Chloride (Sodium Chloride 0.9%) 500 mls @ 999 mls/hr IV .Q31M PRNPRN Reason: HYPOTENSIONAlbumin Human (Albumin) 12.5 gm in 50 mls @ 60 mls/hr IV PRN PRNPRN Reason: Hypotension and/or symptomaticVancomycin HCl / Sodium (Chloride) 250 mls @ 0 mls/hr [id number] PROTOCOL MAL; ProtocolPiperacillin Sod/Tazobactam (Sod / Sodium Chloride) 50 mls @ 0 mls/hr [id number] MAL; ProtocolPiperacillin Sod/Tazobactam (Sod 3.375 gm/ Sodium Chloride) 50 mls @ 12.5 mls/hr IV Q8H SCHLast Infusion: 06/11/25 13:39 Dose: InfusedVancomycin HCl (Vancocin) 2,000 mg in 400 mls @ 200 mls/hr IV ONCE ONEStop: 06/10/25 17:59Vancomycin HCl (Vancocin) 2,000 mg in 400 mls @ 200 mls/hr IV ONCE ONEStop: 06/10/25 22:59Last Admin: 06/10/25 21:19 Dose: Not GivenPiperacillin Sod/Tazobactam (Sod 3.375 gm/ Sodium Chloride) 50 mls @ 12.5 mls/hr IV Q12H SCHStop: 06/16/25 23:59Last Infusion: 06/17/25 19:35 Dose: InfusedAmiodarone HCl/Dextrose (Nexterone) 150 mg in 100 mls @ 400 mls/hr IV ONCE ONEStop: 06/13/25 09:47Last Infusion: 06/13/25 10:03 Dose: InfusedAMIODARONE HCL/D5W (Amiodarone 900 Mg/500 Ml-D5w) 900 mg in 500 mls @ 0 mls/hr IV .Q0M MAL; ProtocolLast Titration: 06/17/25 19:37 Dose: InfusedAmiodarone HCl/Dextrose (Nexterone) 150 mg in 100 mls @ 400 mls/hr IV ONCE ONEStop: 06/15/25 21:17Last Infusion: 06/15/25 21:53 Dose: InfusedAmiodarone HCl/Dextrose (Nexterone) 150 mg in 100 mls @ 400 mls/hr IV ONCE ONEStop: 06/16/25 09:14Last Infusion: 06/16/25 10:28 Dose: InfusedAMIODARONE HCL/D5W (Amiodarone 900 Mg/500 Ml-D5w) 900 mg in 500 mls @ 16.667 mls/hr IV .Q24H [facility]; ProtocolLast Titration: 06/18/25 09:32 Dose: InfusedSodium Chloride (Sodium Chloride 0.9%) 1,000 mls @ 75 mls/hr IV .M95P31P SCHStop: 06/16/25 15:39Sodium Chloride (Sodium Chloride 0.9%) 500 mls @ 75 mls/hr IV .Q6H40M SCHLast Admin: 06/17/25 19:35 Dose: Not GivenHeparin Sodium/Sodium Chloride (Heparin Drip) 25,000 unit in 500 mls @ 0 mls/hr IV CONT MAL; ProtocolLast Titration: 06/17/25 19:36 Dose: InfusedMagnesium Sulfate/Dextrose (Magnesium Sulfate Premix) 1 gm in 100 mls @ 200 mls/hr IV ONCE ONEStop: 06/17/25 05:26Last Infusion: 06/17/25 19:35 Dose: InfusedAlbumin Human (Albumin) 50 g in 200 mls @ 60 mls/hr IV ONCE ONEStop: 06/17/25 08:53Last Infusion: 06/17/25 09:29 Dose: InfusedLidocaine HCl (Xylocaine) Confirm Administered Dose 20 mls @ as directed .ROUTE .[facility] ONEStop: 06/17/25 11:09Sodium Chloride (Sodium Chloride 0.9%) Confirm Administered Dose 1,000 mls @ as directed .ROUTE .STK-MED ONEStop: 06/17/25 11:27Iohexol (Iohexol 350 Mg/Ml 500 Ml Btl (Per Ml)) 0 ml PO ONCE ONEStop: 06/08/25 12:37Last Admin: 06/08/25 12:37 Dose: 30 mlIohexol (Iohexol 350 Mg/Ml 500 Ml Btl (Per Ml)) 0 ml IV ONCE ONEStop: 06/10/25 12:38Last Admin: 06/10/25 12:38 Dose: 100 mlIohexol (Iohexol 350 Mg/Ml 500 Ml Btl (Per Ml)) 0 ml IV ONCE ONEStop: 06/17/25 13:37Last Admin: 06/17/25 13:36 Dose: 100 mlIpratropium [place] (Ipratropium 0.5 Mg/2.5 Ml Neb) 0.5 mg INHALATION ONCE PRNPRN Reason: WHEEZINGLactulose (Lactulose Oral Liq 20 Gm/30 Ml Udc) 10 gm PO DAILY PRN; ProtocolPRN Reason: Constipation (see protocol)Lactulose (Lactulose Oral Liq 20 Gm/30 Ml Udc) 10 gm PO DAILY SCHLast Admin: 06/08/25 06:27 Dose: Not GivenLactulose (Lactulose Oral Liq 20 Gm/30 Ml Udc) 20 gm PO Q6H SCHLast Admin: 06/09/25 13:53 Dose: Not GivenLactulose (Lactulose Oral Liq 20 Gm/30 Ml Udc) 20 gm PO Q12H SCHLast Admin: 06/15/25 04:47 Dose: 20 gmLevothyroxine Sodium (Levothyroxine 150 Mcg Tablet) 150 mcg PO DAILY SCHLast Admin: 06/06/25 05:11 Dose: 150 mcgLidocaine HCl (Lidocaine 1% Inj 20 Ml) 0.1 ml INTRADERMA PRN PRNPRN Reason: anesthetic prior to IV startStop: 06/10/25 11:15Lidocaine/Epinephrine (Lidocaine-Epi 1% Pf 1:200,000 30 Ml Sdv) Confirm Administered Dose 30 ml .[address] .[facility] ONEStop: 06/09/25 10:28Lidocaine/Epinephrine (Lidocaine-Epi 1% Pf 1:200,000 30 Ml Sdv) 30 ml INJECTION ONCE ONEStop: 06/09/25 11:01Last Admin: 06/09/25 12:43 Dose: 6 mlMeperidine HCl (Meperidine 50 Mg/Ml Inj) 12.5 mg IVP Q5M PRNPRN Reason: Shivering PACU Phase IStop: 06/10/25 12:18Methylprednisolone Sodium Succinate (Methylprednisolone Sod Succ 40 Mg/Ml Inj) 40 mg IVP Q8H SCHLast Admin: 06/12/25 09:04 Dose: 40 mgMethylprednisolone Sodium Succinate (Methylprednisolone Sod Succ 40 Mg/Ml Inj) 40 mg IVP Q12H SCHLast Admin: 06/13/25 05:05 Dose: 40 mgMetoclopramide HCl (Metoclopramide 5 Mg/Ml Sdv 2 Ml) 10 mg IVP ONCE PRNPRN Reason: N/V if zofran ineffectiveMetoclopramide HCl (Metoclopramide 5 Mg/Ml Sdv 2 Ml) 10 mg IVP Q5M PRNPRN Reason: Nausea unrelieved by ZofranStop: 06/10/25 12:18Metolazone (Metolazone 5 Mg Tablet) 5 mg PO DAILY SCHLast Admin: 06/10/25 04:16 Dose: 5 mgMetoprolol Tartrate (Metoprolol Tartrate 25 Mg Tablet) 12.5 mg PO BID@0900,2100 SCHLast Admin: 06/12/25 10:24 Dose: Not GivenMidazolam HCl (Midazolam 1 Mg/Ml Inj 2 Ml) 2 mg IVP Q5M PRNPRN Reason: Preop AnxietyMidazolam HCl (Midazolam 1 Mg/Ml Inj 5 Ml) 5 mg IVP ONCE PRNPRN Reason: Per anesthesia for blockMidazolam HCl (Midazolam 1 Mg/Ml Inj 2 Ml) Confirm Administered Dose 2 mg .ROUTE .[facility] ONEStop: 06/09/25 11:59Midazolam HCl (Midazolam 1 Mg/Ml Inj 2 Ml) Confirm Administered Dose 2 mg .ROUTE .[facility] ONEStop: 06/17/25 09:58Midodrine (Midodrine 5 Mg Tablet) 5 mg PO TID SCHLast Admin: 06/07/25 12:57 Dose: 5 mgMidodrine (Midodrine 5 Mg Tablet) 10 mg PO TID SCHLast Admin: 06/09/25 05:31 Dose: 10 mgMidodrine (Midodrine 5 Mg Tablet) 5 mg PO TID SCHLast Admin: 06/12/25 05:57 Dose: Not GivenMidodrine (Midodrine 5 Mg Tablet) 5 mg PO TID PRNPRN Reason: Sbp less than 120 mmhgLast Admin: 06/13/25 11:13 Dose: 5 mgMidodrine (Midodrine 5 Mg Tablet) 5 mg PO TID SCHMidodrine (Midodrine 5 Mg Tablet) 5 mg PO TID SCHLast Admin: 06/16/25 04:59 Dose: 5 mgMidodrine (Midodrine 5 Mg Tablet) 5 mg PO ONCE ONEStop: 06/16/25 08:54Last Admin: 06/16/25 10:00 Dose: 5 mgMorphine Sulfate (Morphine 4 Mg/Ml Sdv 1 Ml) 2 mg IVP Q2M PRNPRN Reason: Pain level 6-10 PACU Phase IStop: 06/10/25 12:18Morphine Sulfate (Morphine 4 Mg/Ml Sdv 1 Ml) 2 mg IVP Q5M PRNPRN Reason: Pain level 2-5 PACU Phase IStop: 06/10/25 12:18Morphine Sulfate (Morphine 4 Mg/Ml Sdv 1 Ml) 0 mg IVP Q5M PRNPRN Reason: Breakthrough Pain PACU PhaseIIMorphine Sulfate (Morphine 4 Mg/Ml Sdv 1 Ml) Confirm Administered Dose 4 mg .ROUTE .[facility] ONEStop: 06/17/25 05:37Nitroglycerin (Nitroglycerin 5 Mg/Ml Sdv 10 Ml) Confirm Administered Dose 50 mg .ROUTE .[facility] ONEStop: 06/17/25 11:39Ondansetron HCl (Ondansetron 2 Mg/Ml Sdv 2 Ml) 4 mg IVP Q5M PRNPRN Reason: NAUSEA AND VOMITINGOndansetron HCl (Ondansetron 2 Mg/Ml Sdv 2 Ml) 4 mg IVP Q15M PRNPRN Reason: Nausea/Vomiting PACU PHASE IIOndansetron HCl (Ondansetron 2 Mg/Ml Sdv 2 Ml) 4 mg IVP Q5M PRNPRN Reason: Nausea PACU Phase IStop: 06/10/25 12:18Pharmacy Consult (Pharmacy Consult For Fall Risk) 1 each XX ONCE ONE; ProtocolStop: 06/12/25 21:32Propofol (Propofol 10 Mg/Ml Sdv 20 Ml) Confirm Administered Dose 200 mg .ROUTE .[facility] ONEStop: 06/09/25 11:59Propofol (Propofol 10 Mg/Ml Sdv 20 Ml) Confirm Administered Dose 200 mg .ROUTE .[facility] ONEStop: 06/09/25 13:04Pyridostigmine [place] (Pyridostigmine 60 Mg Tablet) 60 mg PO BID SCHLast Admin: 06/17/25 04:34 Dose: 60 mgSenna/Docusate Sodium (Sennosides-Docusate Tablet) 1 tab PO BID SCHLast Admin: 06/15/25 04:47 Dose: 1 tabSodium Bicarbonate (Sodium Bicarbonate 1 Meq/Ml Sdv 50ml) Confirm Administered Dose 150 meq .ROUTE .STK-MED ONEStop: 06/04/25 01:27Sodium Bicarbonate (Sodium Bicarbonate 8.4% 1 Meq/Ml 50ml Syr) 50 meq IVP ONCE ONEStop: 06/17/25 04:42Last Admin: 06/17/25 04:42 Dose: 50 meqVancomycin HCl (Vancomycin 1,000 Mg Sdv (Pharmacy Mix)) 0 mg XX PRN PRNPRN Reason: Pharmacy to DoseZolpidem Tartrate (Zolpidem 5 Mg Tablet) 2.5 mg PO BEDTIME PRNPRN Reason: INSOMNIALast Admin: 06/11/25 20:20 Dose: 2.5 mgAllergiesadhesive tape Allergy (Intermediate, Verified 03/03/25 10:26)rash, itch, DERMABONDDERMABOND2-octyl cyanoacrylate Allergy (Verified 03/03/25 10:26)ALGY-BlisterACE Inhibitors Allergy (Verified 03/03/25 10:26)LBG-Jdpiearezgogi-kgwke e (From Betadine) Allergy (Verified 03/03/25 10:26)ALGY-Blisterpropranolol (From Inderal LA) Allergy (Verified 03/03/25 10:26)ADR-Depressionsoap (From Betadine) Allergy (Verified 03/03/25 10:26)ALGY-Blisterverapamil Allergy (Verified 03/03/25 10:26)ADR-Headachezolpidem (From Ambien) Adverse Reaction (Verified 06/17/25 11:09)ADR-ConfusionHome Medicationscarbidopa ER 50 mg-levodopa 200 mg tablet,extended release 1 tab PO TID 09/09/19 [History Confirmed 06/03/25]montelukast 10 mg tablet (Singulair) 10 mg PO BEDTIME 09/09/19 [History Confirmed 06/03/25]gabapentin 300 mg capsule 300 mg PO BEDTIME 11/29/20 [History Confirmed 06/03/25]cetirizine 10 mg tablet (Zyrtec) 10 mg PO DAILY PRN Allergy Symptoms 05/11/21 [History Confirmed 06/03/25]sennosides 8.6 mg-docusate sodium 50 mg tablet (Senna Plus) 1 tab PO DAILY PRN Constipation 12/05/21 [History Confirmed 06/03/25]chlorpheniramine maleate 4 mg tablet (Aller-Chlor) 4 mg PO BEDTIME PRN Itching 06/12/22 [History Confirmed 06/03/25]multivitamin 1 tab PO DAILY 06/12/22 [History Confirmed 06/03/25]fluticasone propionate 50 mcg/actuation nasal spray,suspension (Flonase Allergy Relief) 2 spray intranasal .hs 07/12/22 [History Confirmed 06/03/25]pantoprazole 40 mg tablet,delayed release 40 mg PO BID #90 tabs 07/12/22 [Rx Confirmed 06/03/25]hayeqohcisy-wgm-adac esium-vitC capsule (Glucosamine Complex-MSM capsule) 1 cap PO BID 01/17/23 [History Confirmed 06/03/25]turmeric root extract 500 mg capsule 3,000 mg PO DAILY 11/22/23 [History Confirmed 06/03/25]diclofenac sodium 1 % topical gel See Rx Instructions .Route .COMPLEX #300 grams 05/22/24 [Rx Confirmed 06/03/25]cyclobenzaprine 10 mg tablet 10 mg PO BEDTIME 05/23/24 [History Confirmed 06/03/25]fluticasone 500 mcg-salmeterol 50 mcg/dose blistr powdr for inhalation (Advair Diskus) 1 inh inhalation BID 05/23/24 [History Confirmed 06/03/25]zolpidem 5 mg tablet (Ambien) 2.5 mg PO BEDTIME PRN Insomnia 05/23/24 [History Confirmed 06/03/25]atorvastatin 40 mg tablet 40 mg PO DAILY #90 tabs 12/30/24 [Rx Confirmed 06/03/25]bisoprolol fumarate 5 mg tablet 2.5 mg (1/2 x 5 mg) PO DAILY #45 tabs 12/30/24 [Rx Confirmed 06/03/25]torsemide 20 mg tablet 10 mg PO DAILY 02/03/25 [History Confirmed 06/03/25]hydrocodone 5 mg-acetaminophen 325 mg tablet 1 tab PO Q6H PRN Pain 03/03/25 [History Confirmed 06/03/25]albuterol sulfate 90 mcg/actuation aerosol inhaler 2 puff inhalation QID PRN Wheezing 06/03/25 [History Confirmed 06/03/25]clindamycin phosphate 1 % lotion 1 applic topical DAILY PRN skin rash 06/03/25 [History Confirmed 06/03/25]estradiol 0.01% (0.1 mg/gram) vaginal cream 1 g vaginal DAILY 06/03/25 [History Confirmed 06/03/25]hydroxychloroquine 200 mg tablet (Plaquenil) See Rx Instructions .Route .COMPLEX 06/03/25 [History Confirmed 06/03/25]levothyroxine 150 mcg tablet (Synthroid) 150 mcg PO DAILY 06/03/25 [History Confirmed 06/03/25]lidocaine 5 % topical patch 1 patch topical DAILY PRN Pain 06/03/25 [History Confirmed 06/03/25]mometasone 0.1 % topical solution 1 applic topical DAILY PRN skin rash 06/03/25 [History Confirmed 06/03/25]sacubitril 24 mg-valsartan 26 mg tablet (Entresto) See Rx Instructions .Route .COMPLEX 06/03/25 [History Confirmed 06/03/25]triamcinolone acetonide 0.1 % topical cream 1 applic topical DAILY PRN skin rash 06/03/25 [History Confirmed 06/03/25]allopurinol 100 mg tablet 200 mg (2 x 100 mg) PO DAILY #180 tabs 06/15/25 [Rx]Discharge PlanDischargePatient Disposition: Home Health ServiceCondition: StablePrescriptions:No Actionsennosides-docusate sodium [Senna Plus] 8.6-50 mg tablet1 tab PO DAILY PRN (Reason: Constipation)fluticasone propionate [Flonase Allergy Relief] 50 mcg/actuation spray,suspension2 spray intranasal .hsRx Instructions:administer into each nostrilmultivitamin Tablet1 tab PO DAILYcarbidopa-levodopa 50-200 mg tablet extended release1 tab PO TIDmontelukast [Singulair] 10 mg [id number] mg PO BEDTIMEcyclobenzaprine 10 mg mg PO BEDTIMEzolpidem [Ambien] 5 mg tablet2.5 mg PO BEDTIME PRN (Reason: Insomnia)gabapentin 300 mg mg PO BEDTIMEfluticasone propion-salmeterol [Advair Diskus] 500-50 mcg/dose blister with device1 inh inhalation BIDchlorpheniramine maleate [Aller-Chlor] 4 mg tablet4 mg PO BEDTIME PRN (Reason: Itching)Rx Instructions:do not exceed 2 doses per 24 hrspantoprazole 40 mg tablet,delayed release (DR/EC)40 mg PO BID Qty: 90 1RFGlucosamine Complex-MSM Capsule1 cap PO BIDturmeric root extract 500 mg capsule3,000 mg PO DAILYbisoprolol fumarate 5 mg tablet2.5 mg PO DAILY Qty: 45 1RFatorvastatin 40 mg [id number] mg PO DAILY Qty: 90 3RFhydrocodone-acetaminophen 5-325 mg tablet1 tab PO Q6H PRN (Reason: Pain)diclofenac sodium 1 % gelSee Rx Instructions .ROUTE .COMPLEX Qty: 300 3RFDose Instruction:APPLY 4 GRAMS TO AFFECTED AREA FOUR TIMES A DAY NEEDED FOR JOINT PAINRx Instructions:APPLY 4 GRAMS TO AFFECTED AREA FOUR TIMES A DAY NEEDED FOR JOINT PAINtorsemide 20 mg [id number] mg PO DAILYallopurinol 100 mg [id number] mg PO DAILY Qty: 180 0RFcetirizine [Zyrtec] 10 mg Zaztuw66 mg PO DAILY PRN (Reason: Allergy Symptoms)albuterol sulfate 90 mcg/actuation HFA aerosol inhaler2 puff INHALATION QID PRN (Reason: Wheezing)triamcinolone acetonide 0.1 % cream1 applic TOPICAL DAILY PRN (Reason: skin rash)lidocaine 5 % adhesive patch,medicated1 patch topical DAILY PRN (Reason: Pain)estradiol 0.01 % (0.1 mg/gram) cream1 g VAGINAL DAILYclindamycin phosphate 1 % lotion1 applic TOPICAL DAILY PRN (Reason: skin rash)mometasone 0.1 % solution1 applic TOPICAL DAILY PRN (Reason: skin rash)levothyroxine [Synthroid] 150 mcg [id number] mcg PO DAILYhydroxychloroquine [Plaquenil] 200 mg tabletSee Rx Instructions .ROUTE .COMPLEXRx Instructions:TAKE 2 TABLETS EVERY OTHER DAY ALTERNATING WITH 1 TABLET EVERY OTHER DAY.sacubitril-valsartan [Entresto] 24-26 mg tabletSee Rx Instructions .ROUTE .COMPLEXRx Instructions:Take 1 tablet by mouth in the AM and 2 tablets in the PM.[facility] - 06/18/25 8:10 amReferral Note: Your Chair time w/ dialysis is Sunday, , and Sunday @ 0810.[facility] ([facility]) [Outside]Doyle Santizo MD [Physician, General Surgery] - 06/25/25 10:35 Cee Sanchez MD [Primary Care Provider, [facility]]Patient Instructions: Acute Wound Care (DC), Opioid Safety, Post Anesthesia Care, Patient Portal & Gisela InstructionsActivity Restrictions/Additional Instructions:MICHAEL JARAMILLO WITH [facility] CALLED HER PHONE NUMBER IS [phone] EX [phone] CALL WITH QUESTIONS,Transfer AttestationsTime Spent in Transfer Care: greater than 30 minStatus at Transfer: Cognitive status at transfer: cognitively intact; Behavioral status at transfer: cooperative; Functional status at transfer: other assisted ambulation; Overall status at transfer: patient is progressing back to baselineQuality MetricsClinical Quality Measures[ No reported AMI, CVA or VTE this stay]CodingLevel of Care [id number] time (in minutes) for Discharge: 65DiagnosesCardiac arrest with ventricular fibrillation I46.9; I49.01Torsades de pointes I47.21Nonischemic cardiomyopathy I42.8Acute on chronic combined systolic and diastolic congestive heart failure I50.43Acute renal failure with oliguria N17.9; O10Snonr apnea treated with continuous positive airway pressure (CPAP) G47.30Essential hypertension B48Cjht aortic stenosis I35.0Atrial fibrillation with RVR I48.91Elevated d-dimer R79.89MGUS (monoclonal gammopathy of unknown significance) D47.2Rhinovirus infection B34.8C. difficile diarrhea A04.72Acute on chronic respiratory failure with hypoxia J96.21Chronicity: acute on chronicPneumonia of both lower lobes due to infectious organism J18.9Pneumonia type: due to unspecified organismLaterality: bilateralLung location: lower lobe of lungDictated By:Can Concepcion MDSigned By:Cna Concepcion MDSigned Date/Time:06/18/25 1635DD/ 1623 Not Available Not Available Not Available OBGyn Episode No OBEpisode recorded.
--- OUTSIDE RECORDS SUMMARY | 2025-07-20 19:13 | XMS_ITS | Encounter Summary ---
Author Organization [facility] Address [address] [place] [address] Care Team Providers Care Real Estate Photographer Name Role Phone Tip Manning DO Primary Care Provider [phone] Encounter Details Date Type Department Care Team (Latest Contact Info) Description 10/24/2006 Outpatient Historical [facility] Rheumatology- [facility] [address] [place] [id number] Rachel Desai MD [address] [place], [place] [id number] Osteoarthrosis, Unspecified Whether Generalized or Localized, Hand (Primary Dx) Social History Tobacco Use Types Packs/Day Years Used Date Smoking Tobacco: Never Assessed Comments Unknown Sex and Gender Information Value Date Recorded Sex Assigned at Not on file 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
--- OUTSIDE RECORDS SUMMARY | 2025-07-20 19:13 | XMS_ITS | Clinical Summary ---
Author Organization [facility] Address [address] 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
[2025-07-20 20:26] LABS: NT Pro B Type Natriuretic Pept > 70000 pg/mL (0-450)
[2025-07-20 20:56] VITALS: BP 143/95; PULSE 74; O2SAT 93
== END 2025-07-20 20:58 | disposition home or self-care (01) ==
PROVIDERS: Emergency Provider Physician Assistant; PCP Family Medicine
DX: G25.81 Restless legs syndrome (principal); L29.9 Pruritus, unspecified; I42.8 Other cardiomyopathies; I13.0 Hypertensive heart and chronic kidney disease with heart failure and stage 1 through stage 4 chronic kidney disease, or unspecified chronic kidney disease; N18.9 Chronic kidney disease, unspecified; I50.9 Heart failure, unspecified
CPT/HCPCS: 36415; 36600; 71045; 80051; 80053; 82330; 82805; 83880; 85025; 96372; 99284; J2270; J2405; J9999